=== PATIENT | male | born 1945 | race Caucasian/White ===

== ENCOUNTER 2018-05-25 14:44 | Inpatient (IN) ==
[2018-05-25] MEDS ORDERED: Propofol Inj 500 MG/50 ML Vial ONE (14:59)
--- NOTE | 2018-05-25 15:26 | ED ---
HPI General Chief Complaint: Seizure Stated Complaint: Seizures Time Seen by Provider: 05/25/18 14:52 History of Present Illness HPI Narrative: This patient is brought in critically ill. He has history of seizure disorder and alcoholism and noncompliance. Apparently had a witnessed grand mal type seizure. Paramedics were called. They witnessed him seizing and then he stopped after 2 of Versed. However he became unresponsive and apneic and they intubated him after 2 more Versed and 20 mg etomidate. He arrives intubated and can provide no useful history or review of systems. Related Data Home Medications Medication Instructions Recorded Confirmed Unable to Obtain Home Meds 05/25/18 05/25/18 Allergies Allergy/AdvReac Type Severity Reaction Status Date / Time Unable to Assess Allergy Unknown Unconscious Verified 05/25/18 17:12 Review of Systems ROS Unobtainable due to endotracheal tube PMFSH Medical History Medical History Alcohol abuse (Acute) Seizure (Acute) Surgical history unknown (Acute) Social History Social History Second Hand Smoke Exposure: No Smoking Status: Unknown if ever smoked How Often Do You Have a Drink Containing Alcohol: 4 or more times a week Recent Travel in [facility] within the Last 8 Weeks: No Recent Out of Country Travel within the Last 8 Weeks: No Substance Abuse Detail Alcohol: Substance Use Status: Active Route Used Substance Abuse: By Mouth Immunization History Tetanus Immunization: Unable to Assess Hx Influenza Vaccine This Season: Unable to Assess Exam Narrative Exam Narrative: GENERAL: Thin and cachectic , well-developed patient in no apparent distress. SKIN: Focused skin assessment reveals no rash and nodules. Skin is Warm and dry. HEAD: Atraumatic. Normocephalic. EYES: Pupils equal and round. No scleral icterus. No injection or drainage. ENT: No nasal bleeding or discharge. Mucous membranes pink and moist. ET tube in position NECK: Trachea midline. No JVD. CARDIOVASCULAR: Regular rate and rhythm. No murmur appreciated. RESPIRATORY: Has diffuse rhonchi but no wheezes or crackles. Symmetric respiratory effort with bagging. Breath sounds equal bilaterally. GASTROINTESTINAL: Abdomen soft, non-tender, nondistended. Hepatic and splenic margins not palpable. MUSCULOSKELETAL: No obvious deformities. No clubbing. No cyanosis. No edema. NEUROLOGICAL: Impossible to test motor strength or sensation. He is intubated on ventilator. Pupils are equal and reactive. PSYCHIATRIC: Impossible to test mood or affect or insight or judgment. He is intubated . Course Initial Documented Vital Signs Pulse Rate 147 H 05/25/18 14:45 Respiratory Rate 18 05/25/18 14:45 Blood Pressure 127/74 05/25/18 14:45 Pulse Oximetry 100 05/25/18 14:45 Last Documented Vital Signs Pulse Rate 75 05/25/18 17:09 Respiratory Rate 14 05/25/18 17:09 Blood Pressure 116/64 05/25/18 17:09 Pulse Oximetry 100 05/25/18 17:09 Critical Care Time Critical Care Time: Yes Total Critical Care Time: 78 Attestation: Aggregate critical care time was 74 minutes. Time to perform other separately billable procedures was not included in the critical care time. My time did not include minutes spent treating any other patients simultaneously or on activities that did not directly contribute to the patient's treatment. The services I provided to this patient were to treat and/or prevent clinically significant deterioration that could result in: Permanent neurologic deficit, aspiration, cardiopulmonary arrest I provided critical care services requiring my management, as noted below: Chart data review, documentation time, medication orders and management, vital sign assessments/reviewing monitor data, ordering and reviewing lab tests, ordering and interpreting/reviewing x-rays and diagnostic studies, care of the patient and discussion of the patient with the admitting physicians. Medical Decision Making MDM Narrative Medical decision making narrative: We placed 3 IVs. I have ordered lab studies and chest x-ray and an Dilantin level Judging by his past history he is Dilantin level will be very low and we will Dilantin load him Did have a bit of tonic-clonic seizure-like activity of the upper extremities on arrival but that has resolved spontaneously. I done some frequent rechecks on him but he seems to be seizure-free at the moment. Brain CT still pending at time of admission Initial blood pressure extremely high and accelerated. However on to prevent drip it is 138 systolic Potassium is low at 2.8 and I gave him 50 mEq down the NG tube. Other labs reviewed. Has mild hyponatremia and mild anemia. I instituted fentanyl drip as he is very challenging to say date. He is now on propofol and fentanyl drips. Case reviewed in detail with deli slicer Dr. Steve who has evaluated the patient and will admit Differential Diagnosis Differential Diagnosis: Status epilepticus, aspiration, intracranial hemorrhage , alcohol intoxication, alcohol withdrawal, noncompliance Medical Records Medical records reviewed: Yes I reviewed the patient's medical records. Patient's been here multiple times for seizure related problems. Lab Data Result diagrams: 05/25/18 16:10 05/25/18 16:10 Lab Results 05/25/18 05/25/18 05/25/18 Range/Units 15:23 15:40 16:10 WBC 4.5 (4.0-11.0) th/mm3 RBC 2.53 L (4.50-5.90) mil/mm3 Hgb 9.3 L (13.0-17.0) gm/dL Hct 25.9 L (39.0-51.0) % MCV 102.3 H (80.0-100.0) fL MCH 36.6 H (27.0-34.0) pg MCHC 35.8 (32.0-36.0) % RDW 15.3 (11.6-17.2) % Plt Count 421 (150-450) th/mm3 MPV 7.0 (7.0-11.0) fL Neut % (Auto) 75.4 H (16.0-70.0) % Lymph % (Auto) 11.8 (9.0-44.0) % [place] % (Auto) 11.5 H (0.0-8.0) % Eos % (Auto) 0.2 (0.0-4.0) % Baso % (Auto) 1.1 (0.0-2.0) % Neut # (Auto) 3.4 (1.8-7.7) th/mm3 Lymph # (Auto) 0.5 L (1.0-4.8) th/mm3 [place] # (Auto) 0.5 (0.0-0.9) th/mm3 Eos # (Auto) 0.0 (0.0-0.4) th/mm3 Baso # (Auto) 0.1 (0.0-0.2) th/mm3 WBC Differential . Differential Comment Auto diff final Puncture Site Right radial Patient Temperature 98.6 O2 Saturation 99 (90-100) % ABG pH 7.75 H* (7.380-7.420) ABG pCO2 21 L* (38-42) mmHg ABG pO2 420 H (61-120) mmHg ABG HCO3 30 H (22-26) mmol/L ABG O2 Content 15.3 (12.0-20.0) Vol % ABG Base Excess 8.7 H (-2-2) mmol/L ABG Methemoglobin 0.4 (0-2) % Jim Test Present Hemoglobin 10.3 L (12.0-16.0) G/DL Carboxyhemoglobin 1.6 (0-4) % O2 Delivery Device Ventilator Vent Setting 14/400/+5/100 Inspired O2 100 % Critical Value Yes Sodium (136-145) meq/L Potassium (3.5-5.1) meq/L Chloride (98-107) meq/L Carbon Dioxide (21.0-32.0) meq/L Anion Gap (5-15) meq/L BUN (7-18) mg/dL Creatinine (0.60-1.30) mg/dL Estimated GFR (>89) mL/min Random Glucose (74-106) mg/dL Calcium (8.5-10.1) mg/dL Total Bilirubin (0.2-1.0) mg/dL AST (15-37) U/L ALT (12-78) U/L Alkaline Phosphatase (45-117) U/L Total Protein (6.4-8.2) g/dL Albumin (3.4-5.0) g/dL Salicylates (2.8-20.0) mg/dL Urine Opiates Screen Neg (Neg) Acetaminophen (10.0-30.0) mcg/mL Ur Barbiturates Screen Neg (Neg) Phenytoin (10.0-20.0) mcg/mL Ur Amphetamines Screen Neg (Neg) U Benzodiazepines Scrn Pos H (Neg) Urine Cocaine Screen Neg (Neg) U Cannabinoids Screen Neg (Neg) Serum Alcohol (0-5) mg/dL 05/25/18 05/25/18 05/25/18 Range/Units 16:10 16:10 16:10 WBC (4.0-11.0) th/mm3 RBC (4.50-5.90) mil/mm3 Hgb (13.0-17.0) gm/dL Hct (39.0-51.0) % MCV (80.0-100.0) fL MCH (27.0-34.0) pg MCHC (32.0-36.0) % RDW (11.6-17.2) % Plt Count (150-450) th/mm3 MPV (7.0-11.0) fL Neut % (Auto) (16.0-70.0) % Lymph % (Auto) (9.0-44.0) % [place] % (Auto) (0.0-8.0) % Eos % (Auto) (0.0-4.0) % Baso % (Auto) (0.0-2.0) % Neut # (Auto) (1.8-7.7) th/mm3 Lymph # (Auto) (1.0-4.8) th/mm3 [place] # (Auto) (0.0-0.9) th/mm3 Eos # (Auto) (0.0-0.4) th/mm3 Baso # (Auto) (0.0-0.2) th/mm3 WBC Differential Differential Comment Puncture Site Patient Temperature O2 Saturation (90-100) % ABG pH (7.380-7.420) ABG pCO2 (38-42) mmHg ABG pO2 (61-120) mmHg ABG HCO3 (22-26) mmol/L ABG O2 Content (12.0-20.0) Vol % ABG Base Excess (-2-2) mmol/L ABG Methemoglobin (0-2) % Jim Test Hemoglobin (12.0-16.0) G/DL Carboxyhemoglobin (0-4) % O2 Delivery Device Vent Setting Inspired O2 % Critical Value Sodium 132 L (136-145) meq/L Potassium 2.8 L* (3.5-5.1) meq/L Chloride 91 L (98-107) meq/L Carbon Dioxide 28.7 (21.0-32.0) meq/L Anion Gap 12 (5-15) meq/L BUN 11 (7-18) mg/dL Creatinine 0.96 (0.60-1.30) mg/dL Estimated GFR 77 L (>89) mL/min Random Glucose 118 H (74-106) mg/dL Calcium 8.2 L (8.5-10.1) mg/dL Total Bilirubin 1.9 H (0.2-1.0) mg/dL AST 58 H (15-37) U/L ALT 28 (12-78) U/L Alkaline Phosphatase 77 (45-117) U/L Total Protein 6.2 L (6.4-8.2) g/dL Albumin 2.6 L (3.4-5.0) g/dL Salicylates Less than 1.7 L (2.8-20.0) mg/dL Urine Opiates Screen (Neg) Acetaminophen Less than 2.0 L (10.0-30.0) mcg/mL Ur Barbiturates Screen (Neg) Phenytoin Less than 0.4 L (10.0-20.0) mcg/mL Ur Amphetamines Screen (Neg) U Benzodiazepines Scrn (Neg) Urine Cocaine Screen (Neg) U Cannabinoids Screen (Neg) Serum Alcohol Less than 3 (0-5) mg/dL 05/25/18 Range/Units 16:17 WBC (4.0-11.0) th/mm3 RBC (4.50-5.90) mil/mm3 Hgb (13.0-17.0) gm/dL Hct (39.0-51.0) % MCV (80.0-100.0) fL MCH (27.0-34.0) pg MCHC (32.0-36.0) % RDW (11.6-17.2) % Plt Count (150-450) th/mm3 MPV (7.0-11.0) fL Neut % (Auto) (16.0-70.0) % Lymph % (Auto) (9.0-44.0) % [place] % (Auto) (0.0-8.0) % Eos % (Auto) (0.0-4.0) % Baso % (Auto) (0.0-2.0) % Neut # (Auto) (1.8-7.7) th/mm3 Lymph # (Auto) (1.0-4.8) th/mm3 [place] # (Auto) (0.0-0.9) th/mm3 Eos # (Auto) (0.0-0.4) th/mm3 Baso # (Auto) (0.0-0.2) th/mm3 WBC Differential Differential Comment Puncture Site Right radial Patient Temperature 98.6 O2 Saturation 97 (90-100) % ABG pH 7.64 H* (7.380-7.420) ABG pCO2 26 L (38-42) mmHg ABG pO2 113 (61-120) mmHg ABG HCO3 28 H (22-26) mmol/L ABG O2 Content 11.2 L (12.0-20.0) Vol % ABG Base Excess 6.0 H (-2-2) mmol/L ABG Methemoglobin 0.6 (0-2) % Jim Test Present Hemoglobin 8.0 L (12.0-16.0) G/DL Carboxyhemoglobin 1.6 (0-4) % O2 Delivery Device Ventilator Vent Setting Ac 18/400/peep5 Inspired O2 40 % Critical Value Yes Sodium (136-145) meq/L Potassium (3.5-5.1) meq/L Chloride (98-107) meq/L Carbon Dioxide (21.0-32.0) meq/L Anion Gap (5-15) meq/L BUN (7-18) mg/dL Creatinine (0.60-1.30) mg/dL Estimated GFR (>89) mL/min Random Glucose (74-106) mg/dL Calcium (8.5-10.1) mg/dL Total Bilirubin (0.2-1.0) mg/dL AST (15-37) U/L ALT (12-78) U/L Alkaline Phosphatase (45-117) U/L Total Protein (6.4-8.2) g/dL Albumin (3.4-5.0) g/dL Salicylates (2.8-20.0) mg/dL Urine Opiates Screen (Neg) Acetaminophen (10.0-30.0) mcg/mL Ur Barbiturates Screen (Neg) Phenytoin (10.0-20.0) mcg/mL Ur Amphetamines Screen (Neg) U Benzodiazepines Scrn (Neg) Urine Cocaine Screen (Neg) U Cannabinoids Screen (Neg) Serum Alcohol (0-5) mg/dL Imaging Data Radiologist's impression: Chest X-Ray 05/25/18 15:22 CONCLUSION: No acute cardiopulmonary disease. Head CT 05/25/18 15:22 CONCLUSION: Chronic small vessel ischemic and atrophic changes. Discharge Plan Discharge Disposition Patient Disposition: 30 Still Patient Discharge Details Diagnosis: Generalized seizure, Episode of unresponsiveness Physicians Team ED Provider: Mohit Pal Primary Care Provider: UNKNOWN, Rxs /Orders / Referrals /Forms Prescriptions: No Action Unable to Obtain Home Meds RF: 0 Discharge Interventions Interventions: Vital Signs Last Done: 05/25/18 16:48 Status ED Status: Admitted Patient
[2018-05-25] MEDS ORDERED: Sod Chloride 0.9% Inj 1,000 ML IV.CONT SCH (15:30)
[2018-05-25 15:39] LABS: ABG Base Excess 8.7 mmol/L (-2-2); ABG PCO2 21 mmHg (38-42); ABG PO2 420 mmHg (61-120)
--- NOTE | 2018-05-25 15:46 | XR ---
EXAM DATE: 05/25/2018 3:40 PM EDT AGE/SEX: 72 years / Male INDICATIONS: Shortness of breath. CLINICAL DATA: This is the patient's initial encounter. Patient reports that signs and symptoms have been present for 1 day and indicates a pain score of Nonresponsive. MEDICAL/SURGICAL HISTORY: Non-responsive. Non-responsive. COMPARISON: [facility] [place]/2016. . FINDINGS: The lungs are clear without infiltrate, nodule, or mass. There is no appreciable pleural effusion for technique. Heart and mediastinum are unremarkable. ET TUBE is present within approximat kenna 2 to 3 cm overlapping above the olivia. CONCLUSION: No acute cardiopulmonary disease. Electronically signed by: Elle Harper MD 05/25/2018 3:44 PM EDT
[2018-05-25] MEDS ORDERED: fentaNYL 10 mcg/mL Premix Drip 2,500 MCG/250 ML BAG ONE (15:53)
[2018-05-25] MEDS ORDERED: Midazolam Inj 5 MG/ML 1 ML Vial ONE ×2 (15:54→18:12)
[2018-05-25 16:33] LABS: ABG PCO2 26 mmHg (38-42); ABG PO2 113 mmHg (61-120)
[2018-05-25] MEDS ORDERED: Potassium Chloride 25 MEQ Effervescent Tablet PO PRN (16:43)
[2018-05-25] MEDS ORDERED: Sodium Phosphate Inj 30 MMOL in Sodium Chlor 0.9% Inj 250 ML IV.SIG PRN (16:43)
[2018-05-25] MEDS ORDERED: Potassium Phosphate 500 MG Soluble Tablet PO PRN (16:43)
[2018-05-25] MEDS ORDERED: Potassium Phosphate Inj 30 MMOL in Sodium Chlor 0.9% Inj 250 ML IV.SIG PRN (16:43)
[2018-05-25] MEDS ORDERED: Potassium Chlor 20 mEq Premix 20 MEQ/100 ML PIGGYBACK IV.SIG PRN (16:43)
[2018-05-25] MEDS ORDERED: Potassium Chlor 40 mEq Premix 40 MEQ/100 ML PIGGYBACK IV.SIG PRN ×2 (16:43)
[2018-05-25] MEDS ORDERED: Magnesium Oxide 400 MG Tablet PO PRN (16:43)
[2018-05-25] MEDS ORDERED: Bisacodyl 10 MG Supp RECTAL PRN (16:43)
[2018-05-25] MEDS ORDERED: Magnesium Sulfate Inj 4 GM in Sodium Chlor 0.9% Inj 92 ML IV.SIG PRN (16:43)
[2018-05-25] MEDS ORDERED: Haloperidol Inj 5 MG/ML Ampul IV.PUSH PRN (16:51)
[2018-05-25] MEDS ORDERED: LORazepam 1 MG Tablet PO PRN (16:51)
[2018-05-25] MEDS ORDERED: Dextrose 50% in Water 50 ML Vial IV.PUSH PRN (16:54)
--- NOTE | 2018-05-25 16:55 | P.HPCC ---
History of Present Illness Service: Critical care medicine Primary Care Physician: UNKNOWN Chief Complaint: altered mental status History of Present Illness: This is a 72-year-old male with a history of alcoholic cirrhosis and seizure disorder who presents with ongoing active grand mal seizures. He was altered in the field and unable to participate airway and was intubated in the field. No additional information is available from the patient. In the emergency department he was hypotensive requiring IV fluid boluses. Laboratory evidence is remarkable for an undetectable phenytoin level in a patient on chronic Dilantin therapy. Review of systems is unavailable due to the clinical condition of the patient. Review of Systems unobtainable due to endotracheal tube, unobtainable due to mental condition, unobtainable due to mental status PMFSH - History History Provided By: Medical Record - Medical History Medical History: Medical History (Last Updated 05/25/18 @ 14:50 by Yasmeen Sorto) Alcohol abuse Seizure Surgical history unknown - Tobacco History Second Hand Smoke Exposure: No Tobacco Use In Past 30 Days: No Smoking Status: Unknown if ever smoked - Alcohol History How Often Do You Have a Drink Containing Alcohol: 4 or more times a week - Substance Use Type Alcohol Status: Active Route Used: By Mouth - Travel History Recent Travel in the [place] Within the Last 8 Weeks: No Recent Travel Out of the Country Within the Last 8 Weeks: No - Immunization History Tetanus Immunization: Unable to Assess Hx Influenza Vaccine This Season: Unable to Assess Medications and Allergies Active Medications: Active Medications Al Hydroxide/Mg Hydroxide (Milk Of Hillary [place]) 30 ml PO Q12H PRN PRN Reason: Mild Constipation Albuterol (Duoneb Neb (Prn)) 1 ampul NEB Q2HR NEB PRN PRN Reason: WHEEZING Albuterol (Duoneb Neb (Prn)) 1 ampul NEB Q6HR NEB ALPHONSE Bisacodyl (Dulcolax Supp) 10 mg RECTAL DAILY PRN PRN Reason: SEVERE CONSITIPATION Chlorhexidine Gluconate (Peridex 0.12% Oral Kit) 15 ml OROPHARYNG BID@0800, 2000 ALPHONSE Chlorhexidine Gluconate (Chlorhexidine 2% Cloth) 3 pack TOPICAL DAILY@0400 ALPHONSE Stop: 05/31/18 03:59 Chlorhexidine Gluconate (Chlorhexidine 2% Cloth) 3 pack TOPICAL DAILY@0400 PRN PRN Reason: Extra cloth needed Stop: 05/31/18 03:59 Enoxaparin Sodium (Lovenox Inj) 40 mg SQ Q24H ALPHONSE Famotidine (Pepcid Pf Inj) 20 mg IV.PUSH Q12HR ALPHONSE Sodium Chloride (Ns Inj) 1,000 mls @ 125 mls/hr IV.CONT .Q8H ALPHONSE Stop: 05/25/18 23:29 Last Admin: 05/25/18 15:34 Dose: 125 mls/hr Fentanyl (Fentanyl 10 Mcg/Ml Premix Drip) 2,500 mcg in 250 mls @ 5 mls/hr IV.SIG TITRATE PRN; Protocol PRN Reason: Per Protocol Magnesium Sulfate Inj 4 gm/ (Sodium Chloride) 100 mls @ 50 mls/hr IV.SIG UNSCH PRN PRN Reason: For Magnesium 0.9 - 1.1 mg/dL Magnesium Sulfate Inj 2 gm/ (Sodium Chloride) 100 mls @ 50 mls/hr IV.SIG UNSCH PRN PRN Reason: For Magnesium 1.2 - 1.6 mg/dL Potassium Chloride (Kcl 40 Meq Premix Inj) 40 meq in 100 mls @ 25 mls/hr IV.SIG Q2H PRN PRN Reason: For Potassium 2.8 - 3.2 mEq/L Potassium Chloride (Kcl 40 Meq Premix Inj) 40 meq in 100 mls @ 25 mls/hr IV.SIG UNSCH PRN PRN Reason: For Potassium 3.3 - 3.5 mEq/L Potassium Chloride (Kcl 20 Meq Premix Inj) 20 meq in 100 mls @ 50 mls/hr IV.SIG Q2H PRN PRN Reason: For Potassium 2.8 - 3.2 mEq/L Potassium Phosphate 30 mmol/ (Sodium Chloride) 260 mls @ 42 mls/hr IV.SIG UNSCH PRN PRN Reason: SEE LABEL COMMENTS Sodium Phosphate 30 mmol/ (Sodium Chloride) 260 mls @ 42 mls/hr IV.SIG UNSCH PRN PRN Reason: For Phosphorus < 2.5 mg/dL Potassium Chloride (Kcl 20 Meq Premix Inj) 20 meq in 100 mls @ 50 mls/hr IV.SIG Q2H PRN PRN Reason: For Potassium 3.3 - 3.5 mEq/L Lactulose (Lactulose Liq) 30 ml PO DAILY PRN PRN Reason: SEVERE CONSITIPATION Magnesium Oxide (Mag-Ox) 800 mg PO UNSCH PRN PRN Reason: For Magnesium 1.2 - 1.6 mg/dL Ondansetron HCl (Zofran Inj) 4 mg IV.PUSH Q6H PRN PRN Reason: NAUSEA OR VOMITING Potassium Bicarb/Potassium Chloride (K-Lyte Cl Eff) 50 meq PO UNSCH PRN PRN Reason: For Potassium 3.3 - 3.5 mEq/L Potassium Phosphate (K-Phos Original) 2,000 mg PO Q4H PRN PRN Reason: Phosphorus Less Than 2.5 mg/dL Potassium Phosphate (K-Phos Original) 2,000 mg PO UNSCH PRN PRN Reason: SEE LABEL COMMENTS Senna/Docusate Sodium (Anupama-Colace) 1 tab PO BID ALPHONSE Sennosides (Senokot) 17.2 mg PO Q12H PRN PRN Reason: Moderate Constipation Sodium Chloride (Ns Flush) 2 ml IV.FLUSH PRN PRN PRN Reason: FLUSH AFTER USING IV ACCESS Sodium Chloride (Ns Flush) 2 ml IV.FLUSH BID ALPHONSE Sodium Chloride (Ns Flush) 2 ml IV.FLUSH PRN PRN PRN Reason: FLUSH AFTER USING IV ACCESS Allergies Allergy/AdvReac Type Severity Reaction Status Date / Time Unable to Assess Allergy Unknown Unconscious Verified 05/25/18 17:12 Home Medications Medication Instructions Recorded Confirmed Type Unable to Obtain Home Meds 05/25/18 05/25/18 History Results - Labs CBC & Chem 7: 05/25/18 16:10 05/25/18 16:10 - Imaging Impressions Chest X-Ray 05/25/18 15:22 CONCLUSION: No acute cardiopulmonary disease. Exam Vital signs: Vital Signs 05/25/18 14:45 05/25/18 14:51 05/25/18 14:53 Pulse Rate 147 H 119 H Respiratory Rate 18 18 18 Blood Pressure 127/74 176/92 H Pulse Oximetry 100 100 05/25/18 14:56 05/25/18 15:20 05/25/18 15:26 Pulse Rate 96 H 128 H Respiratory Rate 21 14 Blood Pressure 113/68 Pulse Oximetry 95 100 05/25/18 15:51 05/25/18 16:48 Pulse Rate 94 H 74 Respiratory Rate 14 14 Blood Pressure 140/80 125/71 Pulse Oximetry 100 100 Intake & Output 05/24/18 05/25/18 05/25/18 18:59 06:59 18:59 Weight 53.524 kg Narrative: GENERAL: Frail elderly cachectic male, lying in bed, intubated, sedated, critically ill HEENT: Normocephalic. Atraumatic. Pupils equal, round, reactive, conjugate. Mucous membranes are dry. Evidence of temporal wasting. NECK: Trachea is midline. There is no JVD. CHEST: Intubated with 7.5 ET tube. Equal chest rise. CARDIOVASCULAR: Normal rate, regular rhythm. Sinus. ABDOMEN: Soft, scaphoid, nontender, nondistended. No guarding. MUSCULOSKELETAL: Pulses 2+. No peripheral edema. NEUROLOGICAL: RASS -4. Moves all extremities spontaneously. Does not follow commands. Withdraws to pain. Caprini VTE Risk Assessment Caprini VTE Risk Assessment: Moderate/High Risk (score >= 2) Caprini Risk Assessment Model: Point Value = 1 Point Value = 2 Point Value = 3 Point Value = 5 Age 41-60 Minor surgery BMI > 25 kg/m2 Swollen legs Varicose veins or History of unexplained or recurrent spontaneous Oral contraceptives or hormone replacement Sepsis (< 1 month) Serious lung disease, including pneumonia (< 1 month) Abnormal pulmonary function Acute myocardial infarction Congestive heart failure (< 1 month) History of inflammatory bowel disease Medical patient at bed rest Age 61-74 Arthroscopic surgery Major open surgery (> 45 min) Laparoscopic surgery (> 45 min) Malignancy Confined to bed (> 72 hours) Immobilizing plaster cast Central venous access Age >= 75 History of VTE Family history of VTE Factor V Leiden Prothrombin 12106M Lupus anticoagulant Anticardiolipin antibodies Elevated serum homocysteine Heparin-induced thrombocytopenia Other congenital or acquired thrombophilia Stroke (< 1 month) Elective arthroplasty Hip, pelvis, or leg fracture Acute spinal cord injury (< 1 month) Prophylaxis Regimen: Total Risk Factor Score Risk Level Prophylaxis Regimen 0-1 Low Early ambulation 2 Moderate Order ONE of the following: *Sequential Compression Device (SCD) *Heparin 5000 units SQ BID 3-4 Higher Order ONE of the following medications: *Heparin 5000 units SQ TID *Enoxaparin/Lovenox 40 mg SQ daily (WT < 150 kg, CrCl > 30 mL/min) *Enoxaparin/Lovenox 30 mg SQ daily (WT < 150 kg, CrCl > 10-29 mL/min) *Enoxaparin/Lovenox 30 mg SQ BID (WT < 150 kg, CrCl > 30 mL/min) AND/OR *Sequential Compression Device (SCD) 5 or more Highest Order ONE of the following medications: *Heparin 5000 units SQ TID (Preferred with Epidurals) *Enoxaparin/Lovenox 40 mg SQ daily (WT < 150 kg, CrCl > 30 mL/min) *Enoxaparin/Lovenox 30 mg SQ daily (WT < 150 kg, CrCl > 10-29 mL/min) *Enoxaparin/Lovenox 30 mg SQ BID (WT < 150 kg, CrCl > 30 mL/min) AND *Sequential Compression Device (SCD) Assessment and Plan - Assessment and Plan Plan: Assessment: 72-year-old male with alcohol dependence and likely alcohol withdrawal syndrome combined with known seizure disorder and apparently noncompliant with home seizure medications including Dilantin. Will admit to ICU. Very critically ill with respiratory failure and ongoing seizures. Plan by systems: Neurologic: Alcohol dependence Alcohol withdrawal Seizure disorder with active seizures Medication noncompliance Acute combined toxic and metabolic encephalopathy Frequent neurochecks Avoid long-acting sedatives Fentanyl and propofol for goal RASS -2 Fosphenytoin load 1 g and 100 mg IV every 8 hours Dilantin level in the morning EEG in the morning ciwa protocol Scheduled Valium 20 mg at p.o. every 8 hours to help with EtOH withdrawal IV thiamine and multivitamins Head CT given altered mentation Respiratory: Acute hypoxic and hypercarbic respiratory failure Vent bundle Head of bed elevated Nebs No SBT today given acute altered mentation Likely start SVTs in the morning Wean FiO2 for goal SPO2 greater than 90% Cardiovascular: Continue telemetry 2 L IV fluids Maintenance IV fluids Renal: Place Martin for accurate eyes nose and is critically ill patient -- Strict I/Os FEN/GI: Alcoholic cirrhosis Acute protein calorie malnutritionsevere Severe hypokalemia Acute intravascular volume depletion Hyponatremia Dehydration Low sodium is likely hypovolemic hyponatremia secondary to dehydration ICU electrolyte protocol Place nasogastric tube and start tube feeds: Jevity at initial goal of 60 mils an hour Dietary consultation Maintenance IV fluids Daily BMP Heme/ID: No infectious etiology suspected this time Daily CBC Endocrine: Hyperglycemia of critical illness -- SSI Prophylaxis: GI Prophylaxis Pepcid DVT Prophylaxis -- SCDs Lovenox Lines: Peripheral IVs Martin Dispo: Admit ICU. Critically ill. This patient remains critically ill with one or more organ systems which are or may become a threat to life. I have spent in excess of 37 minutes discontinuously in the care and management of this patient. This time is exclusive of procedures, and includes, but is not limited to, evaluation of the patient, review of the medical record, discussions with family, consultants, nursing staff, or respiratory therapy, and documentation in the medical record.
[2018-05-25] MEDS: fentaNYL 10 mcg/mL Premix Drip 2,500 MCG/250 ML BAG IV.SIG PRN (16:56)
[2018-05-25 16:57] LABS: Alanine Aminotransferase 28 U/L (12-78); Albumin 2.6 g/dL (3.4-5.0); Alkaline Phosphatase 77 U/L (45-117); Anion Gap 12 meq/L (5-15); Aspartate Aminotransferase 58 U/L (15-37); Blood Urea Nitrogen 11 mg/dL (7-18); Calcium 8.2 mg/dL (8.5-10.1); Carbon Dioxide 28.7 meq/L (21.0-32.0); Chloride 91 meq/L (98-107); Glomerular Filtration Rate 77 mL/min (>89); Glucose,Random 118 mg/dL (74-106); Sodium 132 meq/L (136-145); Total Protein 6.2 g/dL (6.4-8.2)
[2018-05-25 17:00] LABS: Baso # (Auto) 0.1 th/mm3 (0.0-0.2); Baso % (Auto) 1.1 % (0.0-2.0); Eos % (Auto) 0.2 % (0.0-4.0); Hematocrit 25.9 % (39.0-51.0); Hemoglobin 9.3 gm/dL (13.0-17.0); Lymph # (Auto) 0.5 th/mm3 (1.0-4.8); Lymph % (Auto) 11.8 % (9.0-44.0); Mean Corpuscular HGB Conc 35.8 % (32.0-36.0); Mean Corpuscular Hemoglobin 36.6 pg (27.0-34.0); Mean Corpuscular Volume 102.3 fL (80.0-100.0); Mono # (Auto) 0.5 th/mm3 (0.0-0.9); Mono % (Auto) 11.5 % (0.0-8.0); Neut # (Auto) 3.4 th/mm3 (1.8-7.7); Neut % (Auto) 75.4 % (16.0-70.0); Platelet Count 421 th/mm3 (150-450); Potassium 2.8 meq/L (3.5-5.1); Red Blood Count 2.53 mil/mm3 (4.50-5.90); Red Cell Distribution Width 15.3 % (11.6-17.2); White Blood Count 4.5 th/mm3 (4.0-11.0)
[2018-05-25] MEDS ORDERED: Potassium Chloride 25 MEQ Effervescent Tablet NG/OG ONE (17:17)
[2018-05-25] MEDS ORDERED: Fosphenytoin Inj 1,000 MGPE in Sodium Chlor 0.9% Inj 50 ML IV.SIG ONE (18:00)
[2018-05-25 18:11] LABS: Amphetamine Screen,Urine Neg (Neg); Barbiturate Screen,Urine Neg (Neg); Cannabinoid Screen,Urine Neg (Neg); Cocaine Screen,Urine Neg (Neg)
--- NOTE | 2018-05-25 18:12 | CT ---
EXAM DATE: 05/25/2018 6:08 PM EDT AGE/SEX: 72 years / Male INDICATIONS: Altered mental status. CLINICAL DATA: This is the patient's initial encounter. Patient reports that signs and symptoms have been present for 1 day and indicates a pain score of Nonresponsive. MEDICAL/SURGICAL HISTORY: Non-responsive. Non-responsive. RADIATION DOSE: 56.35 CTDI (mGy) COMPARISON: [facility] – [place], [place] BRAIN W/O CONTRAST, 04/01/2017. . TECHNIQUE: CT of the head without contrast. Using automated exposure control and adjustment of the mA and/or kV according to patient size, radiation dose was kept as low as reasonably achievable to ob tain optimal diagnostic quality images. DICOM format image data is available electronically for revi ew and comparison. FINDINGS: There is no evidence for intracranial hemorrhage, mass effect, mass lesions, or edema. The visualize d bony structures appear intact. Moderate degree of brain atrophy is seen. Slight periventricular wh ite matter changes are seen nonspecific mostly consistent with chronic small vessel ischemic changes. There are no signs of acute infarction for technique. There is slight opacification of some of the ethmoid air cells on the left. CONCLUSION: Chronic small vessel ischemic and atrophic changes. Electronically signed by: Elle Harper MD 05/25/2018 6:10 PM EDT
[2018-05-25 18:18] LABS: Opiate Screen,Urine Neg (Neg)
[2018-05-25] MEDS: Thiamine Inj 100 MG in Sodium Chlor 0.9% Inj 100 ML IV.SIG SCH (18:38)
[2018-05-25] MEDS: Propofol 1000 mg/100 ml Inj 1,000 MG/100 ML BOTTLE IV.CONT PRN (18:39)
[2018-05-25] MEDS: Insulin NovoLIN Regular Correctional Sugar Inj SQ SCH (18:45)
[2018-05-25] MEDS: Enoxaparin Inj 40 MG/0.4 ML Syringe SQ SCH (19:17)
[2018-05-25] MEDS: Fosphenytoin Inj 100 MGPE in Sodium Chlor 0.9% Inj 50 ML IV.SIG SCH (21:32)
[2018-05-25] MEDS: Famotidine PF Inj 20 MG/2 ML Vial IV.PUSH SCH (21:32)
[2018-05-25] MEDS: Chlorhexidine 0.12% Oral Kit 15 ML UDC OROPHARYNG SCH (21:34)
[2018-05-25] MEDS: Senna/Docusate Sodium 8.6/50 MG Tablet PO SCH (21:35)
[2018-05-26] MEDS: Insulin NovoLIN Regular Correctional Sugar Inj SQ SCH ×4 (01:17→18:22)
[2018-05-26] MEDS: Oral Hygiene Kit OROPHARYNG SCH ×4 (01:17→15:39)
[2018-05-26] MEDS: Chlorhexidine Gluconate 2% 1 Pack (2 Cloths) TOPICAL SCH (03:27)
[2018-05-26] MEDS ORDERED: Chlorhexidine Gluconate 2% 1 Pack (2 Cloths) TOPICAL PRN (04:00)
[2018-05-26] MEDS: Fosphenytoin Inj 100 MGPE in Sodium Chlor 0.9% Inj 50 ML IV.SIG SCH ×3 (05:17→21:07)
[2018-05-26 08:01] LABS: Hemoglobin 9.6 gm/dL (13.0-17.0); Mean Corpuscular HGB Conc 34.3 % (32.0-36.0); Mean Corpuscular Hemoglobin 36.9 pg (27.0-34.0); Mean Corpuscular Volume 107.8 fL (80.0-100.0); Mean Platelet Volume 6.9 fL (7.0-11.0); Platelet Count 380 th/mm3 (150-450); White Blood Count 10.4 th/mm3 (4.0-11.0)
[2018-05-26 08:33] LABS: Anion Gap 8 meq/L (5-15); Blood Urea Nitrogen 8 mg/dL (7-18); Calcium 7.5 mg/dL (8.5-10.1); Carbon Dioxide 25.4 meq/L (21.0-32.0); Chloride 108 meq/L (98-107); Glomerular Filtration Rate Greater Than 89 mL/min (>89); Glucose,Random 101 mg/dL (74-106); Magnesium 1.5 mg/dL (1.5-2.5); Phenytoin (Dilantin) 15.5 mcg/mL (10.0-20.0); Phosphorus 2.8 mg/dL (2.5-4.9); Potassium 3.5 meq/L (3.5-5.1); Sodium 141 meq/L (136-145)
[2018-05-26] MEDS: Chlorhexidine 0.12% Oral Kit 15 ML UDC OROPHARYNG SCH ×2 (10:22→21:07)
[2018-05-26] MEDS: Senna/Docusate Sodium 8.6/50 MG Tablet PO SCH ×2 (10:22→21:10)
[2018-05-26] MEDS: Famotidine PF Inj 20 MG/2 ML Vial IV.PUSH SCH ×2 (10:22→21:10)
[2018-05-26] MEDS: Thiamine Inj 100 MG in Sodium Chlor 0.9% Inj 100 ML IV.SIG SCH (10:23)
--- NOTE | 2018-05-26 10:24 | P.DIET ---
Nutritional Evaluation Type of nutrition evaluation: initial Nutrition consult regarding: [place] [place] Objective - Diagnosis Unresponsive, Breakthrough Seizures - Objective % IBW: 69 (CPG=780#) Body Weight Used for Calculations: IBW (75.5kg) Energy Needs - Lower Range (kCal/kg): 25 Energy Needs - Upper Range (kCal/kg): 30 Lower Limit kCal/kg (kCals): 1,888 Upper Limit kCal/kg (kCals): 2,265 Lower Limit Protein Factor (Grams per Kg): 1.2 Upper Limit Protein Factor (Grams per Kg): 1.5 Lower Protein Needs (Protein): 91 Upper Protein Needs (Protein): 113 Dietitian Reviewed in Medical Record: Curent medications, Intake & Output, Labs , Medical history, Tube feeding Diet Order: TF Only Objective Comments: Meds: Thiamine, Cerebyx IV Labs: Na, K+ WNL now, Phosphorus and Magnesium WNL Pt was on Dilantin at home, not currently on it Feeding - Current Tube Feeding Tube Feeding Product: Jevity 1.5 Tube Feeding Method: Pump Tube Feeding Rate: 60 Current kCals Provided by Tube Feedin,160 Current Protein Provided by Tube Feeding (gPRO): 92 Current Free H2O Provided (m/l): 1,094 Assessment Assessment: Pt admitted for unresponsiveness and breakthrough seizures. Pt currently intubated. Current TF order is for Jevity 1.5 @ 60mls/hr. This is appropriate. TFing running at 10mls currently, recommend increasing TF by 10mls Q 4hrs to goal rate of 60mls/hr. Pt is underweight and is at high nutritional risk so recommend monitoring CMP as well as Magnesium and Phosphorus closely while TFing is being increased to goal. Pt on Dilantin at home but is not currently on it. Dietitian following. Recommendations: 1. Continue Jevity 1.5 @ 60mls/hr. 2. Recommend increasing 10mls Q 4hrs, but monitor CMP w/ Mg+ and Phos closely. Dietitian to Monitor: Lab values, Electrolytes, Intake & Output, Tube feeding tolerance, Weight change, Medical course
[2018-05-26] MEDS: Magnesium Sulfate Inj 2 GM in Sodium Chlor 0.9% Inj 96 ML IV.SIG PRN (11:59)
--- NOTE | 2018-05-26 14:05 | P.PNCC ---
Subjective Subjective Remarks/Hospital Course: Hospital Course: This is a 72-year-old male with a history of alcoholic cirrhosis and seizure disorder who presents with ongoing active grand mal seizures. He was altered in the field and unable to participate airway and was intubated in the field. No additional information is available from the patient. In the emergency department he was hypotensive requiring IV fluid boluses. Laboratory evidence is remarkable for an undetectable phenytoin level in a patient on chronic Dilantin therapy. Review of systems is unavailable due to the clinical condition of the patient. subjective: 05/26: EEG without ictal activity. phenytoin level now therapeutic. patient wakes and follows commands. will wean mechanical ventilation. however, etoh withdraw persists, and CAM+, so may be very difficult to extubate successfully. Objective Vital Signs / I&O: Vital Signs 05/25/18 14:45 05/25/18 14:51 05/25/18 14:53 Temperature Pulse Rate 147 H 119 H Respiratory Rate 18 18 18 Blood Pressure 127/74 176/92 H Pulse Oximetry 100 100 05/25/18 14:56 05/25/18 15:20 05/25/18 15:26 Temperature Pulse Rate 96 H 128 H Respiratory Rate 21 14 Blood Pressure 113/68 Pulse Oximetry 95 100 05/25/18 15:51 05/25/18 16:48 05/25/18 17:09 Temperature Pulse Rate 94 H 74 75 Respiratory Rate 14 14 14 Blood Pressure 140/80 125/71 116/64 Pulse Oximetry 100 100 100 05/25/18 17:43 05/25/18 18:40 05/25/18 18:51 Temperature Pulse Rate 80 92 H Respiratory Rate 14 14 14 Blood Pressure 115/67 58/37 L Pulse Oximetry 100 100 05/25/18 18:56 05/25/18 19:13 05/25/18 19:30 Temperature Pulse Rate 77 72 Respiratory Rate 14 14 11 L Blood Pressure 71/47 L 81/50 L Pulse Oximetry 100 100 100 05/25/18 20:20 05/25/18 20:24 05/25/18 20:30 Temperature 35.9 C L Pulse Rate 83 80 80 Respiratory Rate 12 11 L 11 L Blood Pressure 92/55 L 97/61 L Pulse Oximetry 100 100 98 05/25/18 20:45 05/25/18 21:00 05/25/18 21:15 Temperature Pulse Rate 79 79 82 Respiratory Rate 13 10 L 10 L Blood Pressure 93/61 L 89/55 L 90/53 L Pulse Oximetry 99 100 100 05/25/18 21:30 05/25/18 21:41 05/25/18 21:45 Temperature Pulse Rate 82 82 Respiratory Rate 13 18 11 L Blood Pressure 87/58 L 89/59 L Pulse Oximetry 100 100 05/25/18 22:00 05/25/18 22:15 05/25/18 22:30 Temperature 36.1 C L Pulse Rate 82 82 81 Respiratory Rate 11 L 14 16 Blood Pressure 91/55 L 88/55 L 90/57 L Pulse Oximetry 100 100 100 05/25/18 22:45 05/25/18 23:00 05/25/18 23:15 Temperature Pulse Rate 80 81 81 Respiratory Rate 10 L 14 12 Blood Pressure 85/53 L 88/53 L 93/59 L Pulse Oximetry 100 100 100 05/26/18 00:00 05/26/18 00:03 05/26/18 01:00 Temperature 37.0 C 36.9 C Pulse Rate 83 83 Respiratory Rate 14 15 12 Blood Pressure 94/57 L 93/56 L Pulse Oximetry 100 100 100 05/26/18 02:00 05/26/18 03:00 05/26/18 04:00 Temperature 36.4 C L 36.6 C 37.1 C Pulse Rate 82 79 84 Respiratory Rate 11 L 9 L 10 L Blood Pressure 77/49 L 85/50 L 88/52 L Pulse Oximetry 100 100 100 05/26/18 04:16 05/26/18 05:00 05/26/18 05:15 Temperature 36.6 C Pulse Rate 84 80 80 Respiratory Rate 15 11 L 11 L Blood Pressure 88/52 L 92/54 L Pulse Oximetry 100 100 100 05/26/18 05:30 05/26/18 05:45 05/26/18 06:00 Temperature 36.6 C Pulse Rate 78 79 77 Respiratory Rate 12 11 L 11 L Blood Pressure 84/53 L 84/54 L 88/52 L Pulse Oximetry 100 100 100 05/26/18 06:15 05/26/18 06:35 05/26/18 06:45 Temperature Pulse Rate 76 82 77 Respiratory Rate 12 13 11 L Blood Pressure 89/51 L 90/53 L 87/54 L Pulse Oximetry 100 97 100 05/26/18 07:00 05/26/18 07:15 05/26/18 07:30 Temperature 36.6 C Pulse Rate 76 76 76 Respiratory Rate 11 L 14 11 L Blood Pressure 93/54 L 91/56 L 88/50 L Pulse Oximetry 100 100 100 05/26/18 07:45 05/26/18 08:00 05/26/18 08:11 Temperature 36.6 C Pulse Rate 76 75 81 Respiratory Rate 12 13 18 Blood Pressure 94/52 L 92/52 L Pulse Oximetry 100 100 100 05/26/18 08:16 05/26/18 08:30 05/26/18 08:45 Temperature Pulse Rate 97 H 86 89 Respiratory Rate 30 H 12 12 Blood Pressure 115/53 L 104/55 L 107/55 L Pulse Oximetry 100 99 100 05/26/18 09:00 05/26/18 09:15 05/26/18 09:30 Temperature Pulse Rate 84 80 80 Respiratory Rate 8 L 6 L 6 L Blood Pressure 106/58 L 108/59 L 100/56 L Pulse Oximetry 100 100 100 05/26/18 09:45 05/26/18 10:00 05/26/18 10:16 Temperature Pulse Rate 78 79 96 H Respiratory Rate 3 L 5 L 20 Blood Pressure 98/55 L 97/56 L 100/59 L Pulse Oximetry 100 100 100 05/26/18 10:30 05/26/18 10:45 05/26/18 10:47 Temperature Pulse Rate 93 H 86 86 Respiratory Rate 23 9 L 12 Blood Pressure 101/67 80/51 L 77/52 L Pulse Oximetry 100 100 100 05/26/18 10:48 05/26/18 11:00 05/26/18 11:15 Temperature Pulse Rate 84 83 82 Respiratory Rate 10 L 11 L 11 L Blood Pressure 88/50 L 88/50 L 87/51 L Pulse Oximetry 100 100 100 05/26/18 11:30 05/26/18 11:43 05/26/18 11:45 Temperature Pulse Rate 80 84 Respiratory Rate 11 L 18 12 Blood Pressure 89/53 L 86/53 L Pulse Oximetry 100 100 05/26/18 12:00 05/26/18 12:15 05/26/18 12:30 Temperature 37.0 C Pulse Rate 83 84 85 Respiratory Rate 14 13 13 Blood Pressure 97/56 L 98/57 L 108/63 Pulse Oximetry 100 100 100 05/26/18 12:45 05/26/18 13:00 05/26/18 13:15 Temperature Pulse Rate 86 80 107 H Respiratory Rate 12 13 16 Blood Pressure 114/64 113/65 107/62 Pulse Oximetry 100 100 100 Intake & Output 05/25/18 05/26/18 05/26/18 18:59 06:59 18:59 Intake Total 1293 / 1293 403 / 403 Output Total 350 / 350 1100 / 1100 300 / 300 Balance -350 / -350 193 / 193 103 / 103 Weight 53.524 kg 52 kg Intake: IV 1223 / 1223 153 / 153 NS Inj 1,000 ML @ 125 mls/hr IV 1000 / 1000 .CONT .Q8H ALPHONSE Rx#:[id number] Cerebyx Inj 100 MGPE In NS Inj 52 / 52 52 / 52 50 ML @ 208 mls/hr IV.SIG Q8HR ALPHONSE Rx#:[id number] Cerebyx Inj 1,000 MGPE In NS 70 / 70 Inj 50 ML @ 280 mls/hr IV.SIG ONCE ONE Rx#:[id number] Thiamine Inj 100 MG In NS Inj 101 / 101 101 / 101 100 ML @ 100 mls/hr IV.SIG DAILY ALPHONSE Rx#:[id number] Tube Feeding 70 / 70 Water Bolus Amount 250 / 250 Output: Urine Amount (Catheter) 300 / 300 1100 / 1100 300 / 300 Indwelling Urethral Catheter 300 / 300 1100 / 1100 300 / 300 Gastric Drainage 50 / 50 Left Nare 50 / 50 Other: Weight On Admission 55 kg Result Diagrams: 05/26/18 06:35 05/26/18 06:35 Objective Remarks: GENERAL: Frail elderly cachectic male, lying in bed, intubated, sedated, critically ill HEENT: Normocephalic. Atraumatic. Pupils equal, round, reactive, conjugate. Mucous membranes are moist. Evidence of temporal wasting. NECK: Trachea is midline. There is no JVD. CHEST: Intubated with 7.5 ET tube. Equal chest rise. CARDIOVASCULAR: Normal rate, regular rhythm. Sinus. ABDOMEN: Soft, scaphoid, nontender, nondistended. No guarding. MUSCULOSKELETAL: Pulses 2+. No peripheral edema. NEUROLOGICAL: RASS -2. Moves all extremities spontaneously. follows intermittent commands. Withdraws to pain. Assessment and Plan - Assessment and Plan Plan: Assessment: 72-year-old male with alcohol dependence and alcohol withdrawal syndrome combined with known seizure disorder and apparently noncompliant with home seizure medications including Dilantin. work towards weaning mechanical ventilation. continue etoh withdraw therapies. Plan by systems: Neurologic: Alcohol dependence Alcohol withdrawal Seizure disorder with active seizures- improving. Medication noncompliance Acute combined toxic and metabolic encephalopathy- resolving. Frequent neurochecks Avoid long-acting sedatives Fentanyl and propofol for goal RASS -2 Fosphenytoin 100 mg IV every 8 hours Dilantin level in the morning EEG: formal read pending, prelim no ictal activity. ciwa protocol Scheduled Valium 20 mg at p.o. every 8 hours to help with EtOH withdrawal IV thiamine and multivitamins Head CT negative for acute disease 05/25. Respiratory: Acute hypoxic and hypercarbic respiratory failure Vent bundle Head of bed elevated Nebs start SBTs. Wean FiO2 for goal SPO2 greater than 90% Cardiovascular: Continue telemetry Maintenance IV fluids Renal: d/c tubbs. -- Strict I/Os FEN/GI: Alcoholic cirrhosis Acute protein calorie malnutritionsevere Severe hypokalemia- resolving. Acute intravascular volume depletion- resolving. Hyponatremia- resolved Dehydration- resolving. Low sodium is likely hypovolemic hyponatremia secondary to dehydration ICU electrolyte protocol tube feeds: Jevity at initial goal of 60 mils an hour Dietary consultation Maintenance IV fluids Daily BMP Heme/ID: No infectious etiology suspected this time Daily CBC Endocrine: Hyperglycemia of critical illness -- SSI Prophylaxis: GI Prophylaxis Pepcid DVT Prophylaxis -- SCDs Lovenox Lines: Peripheral IVs Tubbs Dispo: remain in ICU. Critically ill.
--- NOTE | 2018-05-26 15:01 | P.PNPAL ---
Palliative care consulted to assist with goals of medical treatment and assistance with identifying legal health care decision maker. In review of records, Mr. Barnett was previously seen by palliative care 01/2017. At that time he completed a health care surrogate form. Copy placed on chart and faxed to HIM to be scanned into EMR. Important Contacts * Carlos Alberto Barnett, son/primary HCS: [phone] * Amber Barnett, daughter/alternate HCS: [phone] or [phone] Spoke with ameya Carcamo via telephone. States he is currently out of state and will not return for 1-2 weeks. States he is available by phone anytime after 12- 1pm due to time difference. Carlos Alberto confirms his desire to remain health care surrogate. Verbalizes he "wants to see him get out of there one more time". Offered emotional support through active listening. Carlos Alberto reports he has not remained in contact with his sister, Amber. Palliative care full consultation to follow.
--- NOTE | 2018-05-26 15:52 | MG ---
cc: Sandra Orantes MD EEG #: [id number] REFERRING PHYSICIAN: Dr. Steve PATIENT IDENTIFICATIONS: In Room 503, with photic stimulation, intubated without any sedation. EEG in 01/2017, abnormal due to left hemispheric slowing. CT shows chronic small vessel changes, atrophy. INDICATION: A 72-year-old male, witnessed grand mal seizure by EMS, given Versed became unresponsive and apneic. History of alcohol abuse, seizures, alcoholic cirrhosis on Valium, fentanyl, Cerebyx, Pepcid. However, states that he is no longer sedated. DESCRIPTION OF RECORD: Overall moderate slowing of background noted, 2-3 Hz, 4 Hz at times. A lot of muscle artifact, seems like there is quite a bit of artifact in the recording. EKG cannot be interpreted either. No evidence of any epileptiform features. Photic stimulation without any significant driving response. IMPRESSION: Abnormal electroencephalogram due to moderate slowing of the background due to encephalopathic process of various etiology, but no gross epileptiform features were observed in this recording. Clinical correlation. MD KATELYN Ramesh/cesar/nahomy , 03:02 PM , 03:08 PM
[2018-05-26] MEDS: Enoxaparin Inj 40 MG/0.4 ML Syringe SQ SCH (21:10)
--- NOTE | 2018-05-26 22:06 | ECG ---
Date Performed: 05/25/2018 Time Performed: 15:22:28 PTAGE: 72 years EKG: Sinus rhythm ST DEVIATION AND MODERATE T-WAVE ABNORMALITY, CONSIDER ANTERIOR ISCHEMIA ABNORMAL ECG INTERPRETATION BASED ON A DEFAULT AGE OF 40 YEARS PREVIOUS TRACING : 03/18/2016 20.12 Since the previous tracing, no significant change not ed DOCTOR: Rad Fabian Interpretating Date/Time 05/26/2018 22:05:04
[2018-05-27] MEDS: Oral Hygiene Kit OROPHARYNG SCH ×4 (00:35→16:35)
[2018-05-27] MEDS: Insulin NovoLIN Regular Correctional Sugar Inj SQ SCH ×4 (00:40→17:31)
[2018-05-27] MEDS: Chlorhexidine Gluconate 2% 1 Pack (2 Cloths) TOPICAL SCH (04:54)
[2018-05-27 05:06] LABS: Calcium 7.9 mg/dL (8.5-10.1); Carbon Dioxide 23.2 meq/L (21.0-32.0); Magnesium 1.7 mg/dL (1.5-2.5)
[2018-05-27 05:07] LABS: Hemoglobin 8.9 gm/dL (13.0-17.0); Mean Corpuscular Hemoglobin 36.7 pg (27.0-34.0); Mean Corpuscular Volume 107.9 fL (80.0-100.0); Mean Platelet Volume 7.1 fL (7.0-11.0); Phosphorus 2.2 mg/dL (2.5-4.9); Platelet Count 286 th/mm3 (150-450); Red Blood Count 2.41 mil/mm3 (4.50-5.90); Red Cell Distribution Width 15.2 % (11.6-17.2); White Blood Count 9.7 th/mm3 (4.0-11.0)
[2018-05-27] MEDS: Fosphenytoin Inj 100 MGPE in Sodium Chlor 0.9% Inj 50 ML IV.SIG SCH (05:57)
[2018-05-27] MEDS: Thiamine Inj 100 MG in Sodium Chlor 0.9% Inj 100 ML IV.SIG SCH (08:27)
[2018-05-27] MEDS: Senna/Docusate Sodium 8.6/50 MG Tablet PO SCH ×2 (08:27→22:13)
[2018-05-27] MEDS: Chlorhexidine 0.12% Oral Kit 15 ML UDC OROPHARYNG SCH ×2 (08:27→21:45)
[2018-05-27] MEDS: Famotidine PF Inj 20 MG/2 ML Vial IV.PUSH SCH ×2 (08:27→21:45)
--- NOTE | 2018-05-27 09:32 | P.PNCC ---
Subjective Subjective Remarks/Hospital Course: Hospital Course: This is a 72-year-old male with a history of alcoholic cirrhosis and seizure disorder who presents with ongoing active grand mal seizures. He was altered in the field and unable to participate airway and was intubated in the field. No additional information is available from the patient. In the emergency department he was hypotensive requiring IV fluid boluses. Laboratory evidence is remarkable for an undetectable phenytoin level in a patient on chronic Dilantin therapy. Review of systems is unavailable due to the clinical condition of the patient. subjective: 05/26: EEG without ictal activity. phenytoin level now therapeutic. patient wakes and follows commands. will wean mechanical ventilation. however, etoh withdraw persists, and CAM+, so may be very difficult to extubate successfully. 05/27: no improvement in mental status. awakens and moves all extremities but does not follow commands. dilantin level slightly elevated this AM. will hold next dose and decrease future doses. ordered MRI to eval for ischemia. Son is the medical decision-maker and wants aggressive goals. daughter is "alternate" [id number] and was asking about hospice. Objective Vital Signs / I&O: Vital Signs 05/26/18 09:30 05/26/18 09:45 05/26/18 10:00 Temperature Pulse Rate 80 78 79 Respiratory Rate 6 L 3 L 5 L Blood Pressure 100/56 L 98/55 L 97/56 L Pulse Oximetry 100 100 100 05/26/18 10:16 05/26/18 10:30 05/26/18 10:45 Temperature Pulse Rate 96 H 93 H 86 Respiratory Rate 20 23 9 L Blood Pressure 100/59 L 101/67 80/51 L Pulse Oximetry 100 100 100 05/26/18 10:47 05/26/18 10:48 05/26/18 11:00 Temperature Pulse Rate 86 84 83 Respiratory Rate 12 10 L 11 L Blood Pressure 77/52 L 88/50 L 88/50 L Pulse Oximetry 100 100 100 05/26/18 11:15 05/26/18 11:30 05/26/18 11:43 Temperature Pulse Rate 82 80 Respiratory Rate 11 L 11 L 18 Blood Pressure 87/51 L 89/53 L Pulse Oximetry 100 100 05/26/18 11:45 05/26/18 12:00 05/26/18 12:15 Temperature 37.0 C Pulse Rate 84 83 84 Respiratory Rate 12 14 13 Blood Pressure 86/53 L 97/56 L 98/57 L Pulse Oximetry 100 100 100 05/26/18 12:30 05/26/18 12:45 05/26/18 13:00 Temperature Pulse Rate 85 86 80 Respiratory Rate 13 12 13 Blood Pressure 108/63 114/64 113/65 Pulse Oximetry 100 100 100 05/26/18 13:15 05/26/18 13:35 05/26/18 13:45 Temperature Pulse Rate 107 H 85 84 Respiratory Rate 16 16 14 Blood Pressure 107/62 113/60 109/59 L Pulse Oximetry 100 100 100 05/26/18 14:00 05/26/18 14:16 05/26/18 14:30 Temperature Pulse Rate 83 93 H 90 Respiratory Rate 13 17 13 Blood Pressure 105/59 L 102/65 106/64 Pulse Oximetry 100 100 100 05/26/18 14:38 05/26/18 14:45 05/26/18 15:00 Temperature Pulse Rate 95 H 80 90 Respiratory Rate 17 10 L 13 Blood Pressure 112/64 108/63 Pulse Oximetry 100 100 05/26/18 15:06 05/26/18 15:15 05/26/18 15:30 Temperature Pulse Rate 150 H 91 H Respiratory Rate 12 16 17 Blood Pressure 102/60 110/63 Pulse Oximetry 100 100 100 05/26/18 15:45 05/26/18 16:00 05/26/18 16:15 Temperature 37.1 C Pulse Rate 91 H 95 H 83 Respiratory Rate 13 16 12 Blood Pressure 123/69 122/71 118/68 Pulse Oximetry 100 100 100 05/26/18 16:30 05/26/18 16:45 05/26/18 17:00 Temperature Pulse Rate 82 88 82 Respiratory Rate 13 11 L 9 L Blood Pressure 122/68 119/68 109/61 Pulse Oximetry 100 100 100 05/26/18 17:23 05/26/18 17:30 05/26/18 18:00 Temperature Pulse Rate 81 83 93 H Respiratory Rate 14 14 19 Blood Pressure 116/61 107/60 105/56 L Pulse Oximetry 100 100 98 05/26/18 18:30 05/26/18 19:00 05/26/18 19:36 Temperature 36.6 C Pulse Rate 87 86 Respiratory Rate 15 19 17 Blood Pressure 113/66 106/61 Pulse Oximetry 100 98 100 05/26/18 19:44 05/26/18 20:00 05/26/18 21:00 Temperature 36.6 C Pulse Rate 87 97 H 101 H Respiratory Rate 18 18 18 Blood Pressure 115/74 125/58 L Pulse Oximetry 100 100 05/26/18 21:30 05/26/18 21:34 05/26/18 22:00 Temperature Pulse Rate 103 H 92 H Respiratory Rate 16 18 Blood Pressure 128/112 H 132/115 H 102/58 L Pulse Oximetry 98 100 05/26/18 22:30 05/26/18 22:56 05/26/18 23:00 Temperature Pulse Rate 93 H 100 H 93 H Respiratory Rate 16 18 11 L Blood Pressure 116/64 102/58 L 119/68 Pulse Oximetry 100 100 100 05/26/18 23:10 05/26/18 23:30 05/27/18 00:00 Temperature 36.6 C Pulse Rate 98 H 92 H Respiratory Rate 17 18 14 Blood Pressure 123/66 111/61 Pulse Oximetry 100 100 100 05/27/18 00:33 05/27/18 01:00 05/27/18 01:30 Temperature Pulse Rate 95 H 99 H 86 Respiratory Rate 23 21 15 Blood Pressure 122/56 L 120/73 113/62 Pulse Oximetry 100 100 100 05/27/18 02:00 05/27/18 02:30 05/27/18 03:00 Temperature Pulse Rate 90 88 87 Respiratory Rate 15 14 16 Blood Pressure 114/62 106/64 113/63 Pulse Oximetry 100 100 100 05/27/18 03:30 05/27/18 03:34 05/27/18 04:00 Temperature 36.7 C Pulse Rate 88 96 H 93 H Respiratory Rate 16 16 16 Blood Pressure 121/72 111/73 Pulse Oximetry 100 100 100 05/27/18 04:30 05/27/18 05:00 05/27/18 05:01 Temperature Pulse Rate 92 H 94 H 88 Respiratory Rate 13 15 16 Blood Pressure 116/70 125/59 L 125/59 L Pulse Oximetry 100 100 100 05/27/18 05:30 05/27/18 06:00 05/27/18 06:30 Temperature Pulse Rate 91 H 91 H 89 Respiratory Rate 16 11 L 16 Blood Pressure 119/60 117/62 115/61 Pulse Oximetry 100 100 100 05/27/18 07:00 05/27/18 07:30 05/27/18 07:43 Temperature Pulse Rate 88 91 H 95 H Respiratory Rate 14 16 16 Blood Pressure 117/59 L 121/61 Pulse Oximetry 100 100 05/27/18 08:00 05/27/18 08:31 05/27/18 09:00 Temperature 36.8 C Pulse Rate 88 97 H 97 H Respiratory Rate 15 27 H 20 Blood Pressure 111/61 112/63 127/64 Pulse Oximetry 100 100 100 Intake & Output 05/26/18 05/27/18 05/27/18 18:59 06:59 18:59 Intake Total 757 / 757 610 / 610 Output Total 300 / 300 1040 / 1040 Balance 457 / 457 -430 / -430 Weight 52.5 kg Intake: IV 305 / 305 104 / 104 Cerebyx Inj 100 MGPE In NS Inj 104 / 104 104 / 104 50 ML @ 208 mls/hr IV.SIG Q8HR ALPHONSE Rx#:[id number] Magnesium Sulfate Inj 2 GM In 100 / 100 NS Inj 96 ML @ 50 mls/hr IV.SIG UNSCH PRN Rx#:[id number] Thiamine Inj 100 MG In NS Inj 101 / 101 100 ML @ 100 mls/hr IV.SIG DAILY ALPHONSE Rx#:[id number] Tube Feeding 142 / 142 386 / 386 Water Bolus Amount 310 / 310 120 / 120 Output: Urine Amount (Catheter) 300 / 300 1040 / 1040 Indwelling Urethral Catheter 300 / 300 Straight 1040 / 1040 Result Diagrams: 05/27/18 03:38 05/27/18 03:38 Objective Remarks: GENERAL: Frail elderly cachectic male, lying in bed, intubated, sedated, critically ill HEENT: Normocephalic. Atraumatic. Pupils equal, round, reactive, conjugate. Mucous membranes are moist. Evidence of temporal wasting. NECK: Trachea is midline. There is no JVD. CHEST: Intubated with 7.5 ET tube. Equal chest rise. CARDIOVASCULAR: Normal rate, regular rhythm. Sinus. ABDOMEN: Soft, scaphoid, nontender, nondistended. No guarding. MUSCULOSKELETAL: Pulses 2+. No peripheral edema. NEUROLOGICAL: RASS -3. Moves all extremities spontaneously. doesn not follow commands this morning. Withdraws to pain. Assessment and Plan - Assessment and Plan Plan: Assessment: 72-year-old male with alcohol dependence and alcohol withdrawal syndrome combined with known seizure disorder and apparently noncompliant with home seizure medications including Dilantin. continue etoh withdraw therapies. MRI today. unable to extubate due to mental status. Plan by systems: Neurologic: Alcohol dependence Alcohol withdrawal Seizure disorder with active seizures- improving. Medication noncompliance Acute combined toxic and metabolic encephalopathy- resolving. Frequent neurochecks Avoid long-acting sedatives currently off all sedation. hold next dilantin dose. then decrease to Fosphenytoin 50 mg IV every 8 hours Dilantin level in the morning EEG 05/26: negative for ictal activity. generalized slowing. cinc protocol start weaning valium. IV thiamine and multivitamins Head CT negative for acute disease 05/25. MRI pending. Respiratory: Acute hypoxic and hypercarbic respiratory failure Vent bundle Head of bed elevated Nebs daily SBTs. cannot extubate due to mental status. Wean FiO2 for goal SPO2 greater than 90% Cardiovascular: Continue telemetry Maintenance IV fluids Renal: urinary retention - no indication for tubbs. straight cath q6h. -- Strict I/Os FEN/GI: Alcoholic cirrhosis Acute protein calorie malnutritionsevere Severe hypokalemia- resolving. Acute intravascular volume depletion- resolving. Hyponatremia- resolved Dehydration- resolving. ICU electrolyte protocol tube feeds: Jevity at goal rate of 60 ml/Hr nutrition consult and following. Maintenance IV fluids Daily BMP Heme/ID: No infectious etiology suspected this time Daily CBC Endocrine: Hyperglycemia of critical illness -- SSI Prophylaxis: GI Prophylaxis Pepcid DVT Prophylaxis -- SCDs Lovenox Lines: Peripheral IVs Tubbs Dispo: remain in ICU. Critically ill.
--- NOTE | 2018-05-27 10:12 | P.CONPAL ---
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 Unable to quantify Pertinent Non-Medical Issues: Psychosocial: Retired. 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 Has had multiple business none of which lasted 2/2 his drinking. . Has 10 kids. Originally from [place], grew up in [place], has been in [place] for 40 y. Lives with one of his daughters. Some of his children are local. Spiritual: Yazidism non-buddhism, daughter requests home energy inspector visit Legal: Pt is not capacitated to make medical decisions. It is unclear if he will regain capacity. He has previously designated son Carlos Alberto Barnett as primary HCS and daughter Amber as secondary. Ethical issues impacting care: none identified Important Contacts: Carlos Alberto Barnett, son/primary HCS: [phone] Amber Barnett, daughter/alternate HCS: [phone] or [phone] Prognosis: 72 yo male with seizure disorder since head injury 5 y ago, noncompliance with seizure meds, 50 year hx drinking up to or more than a gallon of wine daily admitted 05/25 after having seizure like activity, intubated in the field. EEG showing encephalopathy. He appears cachectic and malnourished. It is unclear if his encephalopathy will improve. His poor nutrition status makes full recovery unlikely. He is quite likely to continue having complications such as seizures d/t noncompliance, episodes of withdrawal, falls. He will likely continue to decline. Code Status: Full Code Plan: - LEGAL DECISON MAKER - HCS completed 02/13/17 Amber Sellers secondary - CODE STATUS- alternate code; intubation only. - GOALS - Primary HCS Carlos Alberto expressing aggressive goals short of alt code no CPR/shocks/ACLS drugs. He says "if the lord takes him, the lord takes him," but he feels his father can "come back from this, this time." Both Carlos Alberto and Amber eager for further updates, particularly re pending MRI. - SYMPTOMS - * dyspnea - intubated in field, now on [facility] vent. Vent weaning in progress, was tolerating CPAP. Has PRN and schedule duonebs. * confusion - multifactorial, long hx etoh abuse, seizure disorder, head injury. ?withdrawal vs seizures vs both? EEG showing encephalopathy, no seizure activity. sedation off since yesterday but pt not purposefully responsive, not following commands. MRI pending. has CIWA protocol. scheduled valium 20mg q8h, last had @ 0913. Had 2mg ativan @ 1500. - family requesting update after MRI report available - Palliative care will continue to follow during hospital course as condition evolves, to assist patient/decision-maker with understanding of medical conditions, weighing benefits/burdens of treatment options, for clarification of goals of treatment. Additionally will assist with any symptoms of palliative concern Appreciation Thank you for the opportunity to participate in the care of Berto Barnett. Attestation Attestation: To help prompt me to consider important information that might be impacting today's encounter and assessment, information from prior notes written by myself or my colleagues may have been "brought forward" into today's note. My signature on this note, however, is an attestation that I personally performed the exam, history, and/or decision-making noted today, and, unless otherwise indicated, the interactions with patient, family, and staff as well as the review of records all occurred today. I also attest that the listed assessment and stated plan reflect my best clinical judgment today based on the combination of historical information, prior notes, and today's exam/ interactions. When time spent is documented, it refers only to time spent today by the signer, or if indicated, combined time spent today by collaborating physician/nurse practitioner.
[2018-05-27] MEDS: fentaNYL 10 mcg/mL Premix Drip 2,500 MCG/250 ML BAG IV.SIG PRN (16:35)
--- NOTE | 2018-05-27 17:04 | MR ---
EXAM DATE: 05/27/2018 4:57 PM EDT AGE/SEX: 72 years / Male INDICATIONS: Altered mental status. CLINICAL DATA: This is the patient's initial encounter. Patient reports that signs and symptoms have been present for 2 days and indicates a pain score of Nonresponsive. MEDICAL/SURGICAL HISTORY: Seizures. Craniotomy. COMPARISON: [facility] [place], CT HEAD W/O CONTRAST, 05/25/2018. . TECHNIQUE: Multiplanar, multisequence examination of the brain was performed without contrast. FINDINGS: There is diffuse prominence of the CSF spaces, ventricles and cisterns. There is no evidence for acut e infarction on diffusion-weighted images. There is mild increased FLAIR signal in the bilateral mary ventricular white matter most characteristic of chronic microvascular ischemic disease. There is ence phalomalacia in the left temporal lobe from remote infarction. There are secretions in the nasopharyn x, left sphenoid sinus, and left ethmoid air cell mucosal thickening and opacification. CONCLUSION: 1. Atrophy, white matter disease and remote left temporal infarct with encephalomalacia. Electronically signed by: Rosales Gomez MD 05/27/2018 5:02 PM EDT
[2018-05-27] MEDS: Enoxaparin Inj 40 MG/0.4 ML Syringe SQ SCH (21:44)
[2018-05-27] MEDS: FOSPHENYTOIN IV.SIG SCH (21:49)
[2018-05-27] MEDS: SODIUM CHLOR IV.SIG SCH (21:49)
[2018-05-28] MEDS: Oral Hygiene Kit OROPHARYNG SCH ×4 (00:32→16:52)
[2018-05-28] MEDS: Insulin NovoLIN Regular Correctional Sugar Inj SQ SCH ×4 (01:01→18:06)
[2018-05-28] MEDS: Chlorhexidine Gluconate 2% 1 Pack (2 Cloths) TOPICAL SCH (05:44)
[2018-05-28] MEDS: SODIUM CHLOR IV.SIG SCH ×3 (05:44→23:02)
[2018-05-28] MEDS: FOSPHENYTOIN IV.SIG SCH ×3 (05:44→23:02)
[2018-05-28 07:28] LABS: Hematocrit 22.8 % (39.0-51.0); Hemoglobin 7.7 gm/dL (13.0-17.0); Mean Corpuscular HGB Conc 33.7 % (32.0-36.0); Mean Corpuscular Hemoglobin 36.1 pg (27.0-34.0); Mean Platelet Volume 7.2 fL (7.0-11.0); Platelet Count 278 th/mm3 (150-450); Red Blood Count 2.13 mil/mm3 (4.50-5.90); Red Cell Distribution Width 15.5 % (11.6-17.2); White Blood Count 10.4 th/mm3 (4.0-11.0)
[2018-05-28 07:50] LABS: Anion Gap 11 meq/L (5-15); Blood Urea Nitrogen 14 mg/dL (7-18); Calcium 7.7 mg/dL (8.5-10.1); Carbon Dioxide 23.2 meq/L (21.0-32.0); Chloride 106 meq/L (98-107); Glomerular Filtration Rate Greater Than 89 mL/min (>89); Glucose,Random 206 mg/dL (74-106); Magnesium 1.4 mg/dL (1.5-2.5); Potassium 3.6 meq/L (3.5-5.1); Sodium 140 meq/L (136-145)
[2018-05-28 07:53] LABS: Phenytoin (Dilantin) 26.3 mcg/mL (10.0-20.0); Phosphorus 2.8 mg/dL (2.5-4.9)
[2018-05-28] MEDS: Famotidine PF Inj 20 MG/2 ML Vial IV.PUSH SCH ×2 (09:55→20:43)
[2018-05-28] MEDS: Senna/Docusate Sodium 8.6/50 MG Tablet PO SCH ×2 (09:56→20:41)
[2018-05-28] MEDS: Chlorhexidine 0.12% Oral Kit 15 ML UDC OROPHARYNG SCH ×2 (09:56→20:42)
[2018-05-28] MEDS: Thiamine Inj 100 MG in Sodium Chlor 0.9% Inj 100 ML IV.SIG SCH (09:56)
--- NOTE | 2018-05-28 13:39 | P.PNCC ---
Subjective Subjective Remarks/Hospital Course: Hospital Course: This is a 72-year-old male with a history of alcoholic cirrhosis and seizure disorder who presents with ongoing active grand mal seizures. He was altered in the field and unable to participate airway and was intubated in the field. No additional information is available from the patient. In the emergency department he was hypotensive requiring IV fluid boluses. Laboratory evidence is remarkable for an undetectable phenytoin level in a patient on chronic Dilantin therapy. Review of systems is unavailable due to the clinical condition of the patient. subjective: 05/26: EEG without ictal activity. phenytoin level now therapeutic. patient wakes and follows commands. will wean mechanical ventilation. however, etoh withdraw persists, and CAM+, so may be very difficult to extubate successfully. 05/27: no improvement in mental status. awakens and moves all extremities but does not follow commands. dilantin level slightly elevated this AM. will hold next dose and decrease future doses. ordered MRI to eval for ischemia. Son is the medical decision-maker and wants aggressive goals. daughter is "alternate" [id number] and was asking about hospice. 05/28: Remains sedated, orally intubated on mechanical ventilation. Objective Vital Signs / I&O: Vital Signs 05/27/18 14:00 05/27/18 14:31 05/27/18 15:00 Temperature Pulse Rate 107 H 115 H 111 H Respiratory Rate 21 24 23 Blood Pressure 116/61 157/72 H 130/69 Pulse Oximetry 100 100 97 05/27/18 15:25 05/27/18 15:26 05/27/18 15:30 Temperature Pulse Rate 110 H 112 H Respiratory Rate 23 26 H 23 Blood Pressure 129/69 Pulse Oximetry 98 99 05/27/18 16:00 05/27/18 17:00 05/27/18 17:15 Temperature 98 F Pulse Rate 121 H 120 H 118 H Respiratory Rate 25 H 26 H 24 Blood Pressure 124/66 112/60 Pulse Oximetry 98 93 L 95 05/27/18 17:30 05/27/18 17:45 05/27/18 18:00 Temperature Pulse Rate 118 H 118 H 121 H Respiratory Rate 22 22 23 Blood Pressure 108/62 113/64 111/67 Pulse Oximetry 96 95 96 05/27/18 18:15 05/27/18 18:45 05/27/18 19:00 Temperature Pulse Rate 120 H 115 H Respiratory Rate 24 25 H Blood Pressure 108/66 94/57 L 87/53 L Pulse Oximetry 95 96 05/27/18 20:00 05/27/18 20:07 05/27/18 20:30 Temperature 100.4 F H Pulse Rate 111 H 109 H 108 H Respiratory Rate 26 H 24 26 H Blood Pressure 97/60 L 90/57 L Pulse Oximetry 98 97 05/27/18 21:00 05/27/18 21:30 05/27/18 22:00 Temperature Pulse Rate 106 H 104 H 104 H Respiratory Rate 23 19 23 Blood Pressure 91/55 L 96/56 L 93/59 L Pulse Oximetry 97 97 95 05/27/18 23:10 05/27/18 23:32 05/28/18 00:00 Temperature 98.6 F Pulse Rate 101 H 97 H Respiratory Rate 25 H 23 22 Blood Pressure 92/51 L 88/50 L Pulse Oximetry 95 100 94 L 05/28/18 01:00 05/28/18 02:00 05/28/18 02:01 Temperature Pulse Rate 95 H 93 H 92 H Respiratory Rate 21 24 25 H Blood Pressure 95/57 L 88/51 L 82/51 L Pulse Oximetry 98 98 97 05/28/18 02:07 05/28/18 03:00 05/28/18 03:27 Temperature Pulse Rate 98 H 91 H 92 H Respiratory Rate 22 22 22 Blood Pressure 88/51 L 87/54 L Pulse Oximetry 99 99 05/28/18 04:00 05/28/18 05:00 05/28/18 06:01 Temperature 98.5 F Pulse Rate 92 H 91 H 92 H Respiratory Rate 24 23 23 Blood Pressure 90/55 L 92/53 L 85/55 L Pulse Oximetry 100 100 100 05/28/18 07:00 05/28/18 07:40 05/28/18 07:45 Temperature 97.6 F Pulse Rate 92 H Respiratory Rate 24 25 H 25 H Blood Pressure 96/52 L Pulse Oximetry 100 100 100 05/28/18 08:00 05/28/18 09:00 05/28/18 10:00 Temperature Pulse Rate 94 H 91 H 93 H Respiratory Rate 19 23 25 H Blood Pressure 92/66 L 96/55 L 100/59 L Pulse Oximetry 100 100 98 05/28/18 11:00 05/28/18 11:05 Temperature Pulse Rate 95 H Respiratory Rate 26 H 23 Blood Pressure 99/58 L Pulse Oximetry 100 100 Intake & Output 05/27/18 05/28/18 05/28/18 18:59 06:59 18:59 Intake Total 828 / 828 51 / 51 952 / 952 Output Total 650 / 650 380 / 380 Balance 178 / 178 -329 / -329 952 / 952 Weight 52 kg Intake: IV 461 / 461 51 / 51 952 / 952 LR 1000 mL Inj 1,000 ML @ 200 800 / 800 mls/hr IV.CONT .Q5H ALPHONSE Rx#: [id number] Cerebyx Inj 50 MGPE In NS Inj 51 / 51 51 / 51 50 ML @ 208 mls/hr IV.SIG Q8HR ALPHONSE Rx#:[id number] Sodium Phosphate Inj 30 MMOL In 260 / 260 NS Inj 250 ML @ 42 mls/hr IV. SIG UNSCH PRN Rx#:[id number] Thiamine Inj 100 MG In NS Inj 101 / 101 101 / 101 100 ML @ 100 mls/hr IV.SIG DAILY ALPOHNSE Rx#:[id number] fentaNYL 10 mcg/mL Premix Drip 100 / 100 2,500 mcg In 250 ml @ 50 MCG/HR 5 mls/hr IV.SIG TITRATE PRN Rx #:[id number] Tube Feeding 307 / 307 Water Bolus Amount 60 / 60 Output: Urine Amount (Catheter) 650 / 650 380 / 380 Straight 650 / 650 380 / 380 Result Diagrams: 05/28/18 06:07 05/28/18 06:07 Objective Remarks: GENERAL: Frail elderly cachectic male, lying in bed, intubated, sedated, critically ill HEENT: Normocephalic. Atraumatic. Pupils equal, round, reactive, conjugate. Mucous membranes are moist. Evidence of temporal wasting. NECK: Trachea is midline. There is no JVD. CHEST: Intubated with 7.5 ET tube. Equal chest rise. CARDIOVASCULAR: Normal rate, regular rhythm. Sinus. ABDOMEN: Soft, scaphoid, nontender, nondistended. No guarding. MUSCULOSKELETAL: Pulses 2+. No peripheral edema. NEUROLOGICAL: RASS -3. Moves all extremities spontaneously. doesn not follow commands this morning. Withdraws to pain. Assessment and Plan - Assessment and Plan Plan: Assessment: 72-year-old male with alcohol dependence and alcohol withdrawal syndrome combined with known seizure disorder and apparently noncompliant with home seizure medications including Dilantin. continue etoh withdraw therapies. MRI today. unable to extubate due to mental status. Plan by systems: Neurologic: Alcohol dependence Alcohol withdrawal Seizure disorder with active seizures- improving. Medication noncompliance Acute combined toxic and metabolic encephalopathy- resolving. Frequent neurochecks Avoid long-acting sedatives currently off all sedation. Fosphenytoin decreased to50 mg IV every 8 hours on 05/27 Dilantin level in the morning EEG 05/26: negative for ictal activity. generalized slowing. cila protocol start weaning valium. IV thiamine and multivitamins Head CT negative for acute disease 05/25. MRI pending. Respiratory: Acute hypoxic and hypercarbic respiratory failure Vent bundle Head of bed elevated Nebs daily SBTs. cannot extubate due to mental status. Wean FiO2 for goal SPO2 greater than 90% Cardiovascular: Continue telemetry Maintenance IV fluids Renal: urinary retention - no indication for tubbs. straight cath q6h. -- Strict I/Os FEN/GI: Alcoholic cirrhosis Acute protein calorie malnutritionsevere Severe hypokalemia- resolving. Acute intravascular volume depletion- resolving. Hyponatremia- resolved Dehydration- resolving. ICU electrolyte protocol tube feeds: Jevity at goal rate of 60 ml/Hr nutrition consult and following. Maintenance IV fluids Daily BMP Heme/ID: No infectious etiology suspected this time Daily CBC Endocrine: Hyperglycemia of critical illness -- SSI Prophylaxis: GI Prophylaxis Pepcid DVT Prophylaxis -- SCDs Lovenox Lines: Peripheral IVs Tubbs Dispo: remain in ICU. Critically ill. Time spent on critical care excluding procedures 30 minutes
[2018-05-28] MEDS: Enoxaparin Inj 40 MG/0.4 ML Syringe SQ SCH (20:41)
[2018-05-29] MEDS: Insulin NovoLIN Regular Correctional Sugar Inj SQ SCH ×5 (00:48→23:57)
[2018-05-29] MEDS: Oral Hygiene Kit OROPHARYNG SCH ×5 (00:48→23:57)
[2018-05-29] MEDS: Chlorhexidine Gluconate 2% 1 Pack (2 Cloths) TOPICAL SCH (03:38)
[2018-05-29 06:12] LABS: Hematocrit 25.6 % (39.0-51.0); Hemoglobin 8.5 gm/dL (13.0-17.0); Mean Corpuscular HGB Conc 33.1 % (32.0-36.0); Mean Corpuscular Hemoglobin 33.8 pg (27.0-34.0); Mean Platelet Volume 7.4 fL (7.0-11.0); Platelet Count 351 th/mm3 (150-450); Red Blood Count 2.51 mil/mm3 (4.50-5.90); Red Cell Distribution Width 15.8 % (11.6-17.2); White Blood Count 15.3 th/mm3 (4.0-11.0)
[2018-05-29 06:28] LABS: Anion Gap 8 meq/L (5-15); Blood Urea Nitrogen 21 mg/dL (7-18); Calcium 8.2 mg/dL (8.5-10.1); Carbon Dioxide 26.6 meq/L (21.0-32.0); Chloride 107 meq/L (98-107); Glomerular Filtration Rate Greater Than 89 mL/min (>89); Glucose,Random 113 mg/dL (74-106); Magnesium 1.5 mg/dL (1.5-2.5); Potassium 4.3 meq/L (3.5-5.1)
[2018-05-29 06:30] LABS: Phenytoin (Dilantin) 20.5 mcg/mL (10.0-20.0); Phosphorus 2.2 mg/dL (2.5-4.9)
[2018-05-29 06:47] LABS: Sodium 142 meq/L (136-145)
[2018-05-29] MEDS: Senna/Docusate Sodium 8.6/50 MG Tablet PO SCH ×2 (08:43→20:35)
[2018-05-29] MEDS: Famotidine PF Inj 20 MG/2 ML Vial IV.PUSH SCH ×2 (08:43→20:34)
[2018-05-29] MEDS: Chlorhexidine 0.12% Oral Kit 15 ML UDC OROPHARYNG SCH ×2 (08:44→20:35)
[2018-05-29] MEDS: FOSPHENYTOIN IV.SIG SCH (09:10)
[2018-05-29] MEDS: SODIUM CHLOR IV.SIG SCH (09:10)
--- NOTE | 2018-05-29 10:05 | P.PNCC ---
Subjective Subjective Remarks/Hospital Course: Hospital Course: This is a 72-year-old male with a history of alcoholic cirrhosis and seizure disorder who presents with ongoing active grand mal seizures. He was altered in the field and unable to participate airway and was intubated in the field. No additional information is available from the patient. In the emergency department he was hypotensive requiring IV fluid boluses. Laboratory evidence is remarkable for an undetectable phenytoin level in a patient on chronic Dilantin therapy. Review of systems is unavailable due to the clinical condition of the patient. subjective: 05/26: EEG without ictal activity. phenytoin level now therapeutic. patient wakes and follows commands. will wean mechanical ventilation. however, etoh withdraw persists, and CAM+, so may be very difficult to extubate successfully. 05/27: no improvement in mental status. awakens and moves all extremities but does not follow commands. dilantin level slightly elevated this AM. will hold next dose and decrease future doses. ordered MRI to eval for ischemia. Son is the medical decision-maker and wants aggressive goals. daughter is "alternate" [id number] and was asking about hospice. 8/1: Remains sedated, orally intubated on mechanical ventilation. 8/2: Remains encephalopathic, sedated, orally intubated on mechanical ventilation. Tremors in right upper extremity. Objective Vital Signs / I&O: Vital Signs 05/28/18 11:00 05/28/18 11:05 05/28/18 12:00 Temperature 98.4 F Pulse Rate 95 H 93 H Respiratory Rate 26 H 23 23 Blood Pressure 99/58 L 94/51 L Pulse Oximetry 100 100 100 05/28/18 13:00 05/28/18 14:00 05/28/18 15:00 Temperature Pulse Rate 102 H 99 H 102 H Respiratory Rate 23 24 25 H Blood Pressure 99/59 L 115/59 L 106/68 Pulse Oximetry 100 100 100 05/28/18 15:45 05/28/18 16:00 05/28/18 17:00 Temperature 98.6 F Pulse Rate 107 H 105 H 109 H Respiratory Rate 25 H 28 H 24 Blood Pressure 109/60 106/55 L Pulse Oximetry 99 100 05/28/18 18:00 05/28/18 19:00 05/28/18 19:37 Temperature Pulse Rate 112 H 113 H 113 H Respiratory Rate 26 H 25 H 25 H Blood Pressure 108/74 118/65 Pulse Oximetry 100 100 100 05/28/18 20:00 05/28/18 21:00 05/28/18 22:00 Temperature 100.3 F H Pulse Rate 115 H 112 H 110 H Respiratory Rate 26 H 23 25 H Blood Pressure 120/66 116/61 106/57 L Pulse Oximetry 100 100 100 05/28/18 23:00 05/28/18 23:37 05/29/18 00:00 Temperature 99.8 F H Pulse Rate 107 H 108 H Respiratory Rate 24 23 26 H Blood Pressure 108/62 110/61 Pulse Oximetry 100 100 100 05/29/18 01:00 05/29/18 02:00 05/29/18 03:00 Temperature Pulse Rate 109 H 104 H 108 H Respiratory Rate 25 H 24 24 Blood Pressure 116/72 111/60 115/62 Pulse Oximetry 100 100 100 05/29/18 03:54 05/29/18 04:00 05/29/18 05:00 Temperature 99.1 F 99.1 F Pulse Rate 108 H 108 H 111 H Respiratory Rate 27 H 28 H 27 H Blood Pressure 109/67 110/77 Pulse Oximetry 100 99 100 05/29/18 06:00 05/29/18 08:10 05/29/18 09:16 Temperature 99.1 F Pulse Rate 116 H 114 H Respiratory Rate 24 25 H 26 H Blood Pressure 117/67 Pulse Oximetry 98 100 05/29/18 09:18 Temperature Pulse Rate Respiratory Rate 26 H Blood Pressure Pulse Oximetry 100 Intake & Output 05/28/18 05/29/18 05/29/18 18:59 06:59 18:59 Intake Total 1665 / 1665 289 / 289 51 / 51 Output Total 250 / 250 275 / 275 Balance 1415 / 1415 51 / 51 Weight 54 kg Intake: IV 1003 / 1003 / 51 51 / 51 LR 1000 mL Inj 1,000 ML @ 200 800 / 800 mls/hr IV.CONT .Q5H ALPHONSE Rx#: [id number] Cerebyx Inj 50 MGPE In NS Inj 102 / 102 51 / 51 51 / 51 50 ML @ 208 mls/hr IV.SIG Q8HR ALPHONSE Rx#:[id number] Thiamine Inj 100 MG In NS Inj 101 / 101 100 ML @ 100 mls/hr IV.SIG DAILY ALPHONSE Rx#:[id number] Tube Feeding 602 / 602 238 / 238 Water Bolus Amount 60 / 60 Output: Urine Amount (Catheter) 250 / 250 275 / 275 Straight 250 / 250 275 / 275 Result Diagrams: 05/29/18 05:48 05/29/18 05:48 Imaging: Chest X-Ray 05/25/18 15:22 CONCLUSION: No acute cardiopulmonary disease. Head CT 05/25/18 15:22 CONCLUSION: Chronic small vessel ischemic and atrophic changes. Head MRI 05/27/18 00:00 CONCLUSION: 1. Atrophy, white matter disease and remote left temporal infarct with encephalomalacia. Objective Remarks: GENERAL: Frail elderly cachectic male, lying in bed, intubated, sedated, critically ill HEENT: Normocephalic. Atraumatic. Pupils equal, round, reactive, conjugate. Mucous membranes are moist. Evidence of temporal wasting. NECK: Trachea is midline. There is no JVD. CHEST: Intubated with 7.5 ET tube. Equal chest rise. CARDIOVASCULAR: Normal rate, regular rhythm. Sinus. ABDOMEN: Soft, scaphoid, nontender, nondistended. No guarding. MUSCULOSKELETAL: Pulses 2+. No peripheral edema. NEUROLOGICAL: Remains encephalopathic, orally intubated on mechanical ventilation. Tremors noted in right upper extremity. Not following commands. Assessment and Plan - Assessment and Plan Plan: Assessment: 72-year-old male with alcohol dependence and alcohol withdrawal syndrome combined with known seizure disorder and apparently noncompliant with home seizure medications including Dilantin. continue etoh withdraw therapies. MRI today. unable to extubate due to mental status. Plan by systems: Neurologic: Alcohol dependence Alcohol withdrawal Seizure disorder with active seizures- improving. Medication noncompliance Acute combined toxic and metabolic encephalopathy- resolving. Frequent neurochecks Avoid long-acting sedatives currently off all sedation. Fosphenytoin decreased to 50 mg IV every 8 hours on 05/27 Dilantin level EEG 05/26: negative for ictal activity. generalized slowing. Repeat EEG ordered on 05/29 in view of tremors noted in right upper extremity. Neurology consult requested [facility] protocol start weaning valium. IV thiamine and multivitamins Head CT negative for acute disease 05/25. MRI results noted. Respiratory: Acute hypoxic and hypercarbic respiratory failure Vent bundle Head of bed elevated Nebs daily SBTs. cannot extubate due to mental status. Wean FiO2 for goal SPO2 greater than 90% Cardiovascular: Continue telemetry Maintenance IV fluids Renal: urinary retention - no indication for tubbs. straight cath q6h. -- Strict I/Os FEN/GI: Alcoholic cirrhosis Acute protein calorie malnutritionsevere Severe hypokalemia- resolving. Acute intravascular volume depletion- resolving. Hyponatremia- resolved Dehydration- resolving. ICU electrolyte protocol tube feeds: Jevity at goal rate of 60 ml/Hr nutrition consult and following. Maintenance IV fluids Daily BMP Heme/ID: No infectious etiology suspected this time Daily CBC Endocrine: Hyperglycemia of critical illness -- SSI Prophylaxis: GI Prophylaxis Pepcid DVT Prophylaxis -- SCDs Lovenox Lines: Peripheral IVs Tubbs Dispo: remain in ICU. Critically ill. Time spent on critical care excluding procedures 30 minutes
--- NOTE | 2018-05-29 12:14 | MB ---
cc: Marc Johnson MD DATE: 05/29/2018 HISTORY OF PRESENT ILLNESS: A 72-year-old man with a history of alcoholic cirrhosis, admitted 05/25/2018, brought in critically, history of seizure disorder, alcoholism, noncompliance, had a grand mal seizure. Paramedics were called. He was seizing, got 2 of Versed, became unresponsive, apneic and was intubated. A fentanyl drip was started. Potassium was 2.8. I am asked to see him for a possible seizure here. He had some tremors this morning all over his body. MEDICATIONS: He has been on Valium down an NG tube every 8 hours, lovenox 40 every 24 hours, fentanyl drip, 50 mg of fosphenytoin every 8 hours, Glucagon, Haldol p.r.n., and Ativan injection, the last on 05/27. He got thiamine. PHYSICAL EXAMINATION: VITAL SIGNS: Low grade temps only, 26 (he is ventilated), 111, 99/48-108/78. Lowest blood pressure 85/55 yesterday. NECK: There are no carotid bruits. HEART: Regular rate and rhythm. I do not detect a murmur. NEUROLOGIC: His pupils are equal. Doll's eyes are normal. He is intubated. To painful stimuli, no response. There is no ankle clonus. Toes are mute. To nasal stimuli, he did move his head back and forth, but no scowling. LABORATORY DATA: White count is 15,000, it was 4.5; hematocrit 25, platelet count 351. His Dilantin level is 20, was 26 yesterday. On basic metabolic profile, creatinine has been normal, calcium 8.2, phosphorus and magnesium normal. Glucose is elevated at 226. LFT has been minimally elevated only. Albumin is 2.6. ABG 7.64, 26, O2 of 113. He had a normal B12 in 2006 and a normal B6 and thyroid last year. PAST MEDICAL HISTORY: He has seen Neurology multiple times here. I saw him myself in 02/2016. [place] a boat. He had change in mental status, mumbling. He was moving all of his extremities. He was seen by Dr. Negron 2016. He noted a history of dementia, alcohol abuse, found again at home, possibly postictal. He was on Dilantin 100 every [address] was negative. MRI was negative. MRA looked overall okay. An EEG in 2016 was negative. We put him on Keppra. An LP was negative. Ultrasound and MRI were negative. He got some B12 shots. His last MRI 01/2017 without contrast was normal. He had a brain MRI done on 05/27/2018 that showed some atrophy, remote left temporal infarct. Review of those films, there is some damage to the left anterior temporal lobe. He has got some diffuse atrophy. No acute infarct is noted. No hemorrhage is seen. Reviewing a brain MRI from 01/2017, that damage was present in the temporal lobe at that time and that is old. He had CTA of his head and neck in 2012, both of which were normal. He had a head MRI in 2017 that was normal. IMPRESSION AND RECOMMENDATIONS: Temporal lobe damage, chronic; history of seizures and now more seizures; noncompliance with medications. His free Dilantin is actually quite high, would hold his Dilantin for now. We can stick him on IV Keppra, which would be a better medicine for him in general, because he does not need to follow to labs on it. He may be having a prolonged postictal state. We will check an ammonia level on him with some lab work. I will be following him with you in the hospital and we will review today's EEG. MD TREASURE Mccain/SHIVAM , 11:45 AM , 11:55 AM
[2018-05-29] MEDS: levETIRAcetam 1000mg/100mL Inj 100 ML IV.SIG SCH (12:55)
[2018-05-29 14:10] LABS: T4 (Thyroxine) 4.8 mcg/dL (4.5-12.1)
[2018-05-29 14:35] LABS: Thyroid Stimulating Hormone 0.298 uIU/mL (0.358-3.740)
[2018-05-29 14:40] LABS: Bacteria,Urine Many /hpf; Bilirubin,Urine Negative (Negative); Clarity,Urine Cloudy (Clear); Color,Urine Amber (Yellw/Straw); Glucose,Urine (UA) 50 mg/dL (Negative); Leukocyte Esterase,Urine Large (Negative); Nitrite,Urine Negative (Negative); Specific Gravity,Urine 1.017 (1.002-1.035); Squamous Epithelial Cell,Urine 1 /hpf (0-5); Urobilinogen,Urine 4 or Greater mg/dL (Less than 2)
--- NOTE | 2018-05-29 15:06 | P.PNPAL ---
Reason for Visit Reason for visit: a. To assist with evaluation and management of symptoms including: confusion, dyspnea b. To assist medical decision maker(s) with: better understanding of current medical conditions; weighing benefits/burdens of medical treatment options; making medical treatment decisions. Subjective Subjective/Interval History: MRI 05/27 showed atrophy, white matter disease, left temporal infarct with encephalomalacia. WBC today up to 15.3. RN reports cloudy urine, culture pending. Failing spontaneous breathing trials, becomes agitated. Neurology now following. Now on Kepprajulienneantin d/c. EEG pending. On my eval pt is unresponsive. Sedation off. Family/Friend Interactions: Provided medical update to [facility] Carlos Alberto Barnett. He is on his way here and anticipates arrival tomorrow afternoon. Spoke with secondary [facility] Amber on phone. Provided medical update. She communicates with most of other siblings. Says they are prepared for their father's , his casket is already picked out. She is not inclined to "prolong him dying." Advance Directives Health Care Surrogate Name and Number: Carlos Alberto Barnett [phone]; Amber Barnett [phone], Objective Vital Signs: Vital Signs 05/28/18 15:00 05/28/18 15:45 05/28/18 16:00 Temperature 98.6 F Pulse Rate 102 H 107 H 105 H Respiratory Rate 25 H 25 H 28 H Blood Pressure 106/68 109/60 Pulse Oximetry 100 99 05/28/18 17:00 05/28/18 18:00 05/28/18 19:00 Temperature Pulse Rate 109 H 112 H 113 H Respiratory Rate 24 26 H 25 H Blood Pressure 106/55 L 108/74 118/65 Pulse Oximetry 100 100 100 05/28/18 19:37 05/28/18 20:00 05/28/18 21:00 Temperature 100.3 F H Pulse Rate 113 H 115 H 112 H Respiratory Rate 25 H 26 H 23 Blood Pressure 120/66 116/61 Pulse Oximetry 100 100 100 05/28/18 22:00 05/28/18 23:00 05/28/18 23:37 Temperature Pulse Rate 110 H 107 H Respiratory Rate 25 H 24 23 Blood Pressure 106/57 L 108/62 Pulse Oximetry 100 100 100 05/29/18 00:00 05/29/18 01:00 05/29/18 02:00 Temperature 99.8 F H Pulse Rate 108 H 109 H 104 H Respiratory Rate 26 H 25 H 24 Blood Pressure 110/61 116/72 111/60 Pulse Oximetry 100 100 100 05/29/18 03:00 05/29/18 03:54 05/29/18 04:00 Temperature 99.1 F Pulse Rate 108 H 108 H 108 H Respiratory Rate 24 27 H 28 H Blood Pressure 115/62 109/67 Pulse Oximetry 100 100 99 05/29/18 05:00 05/29/18 06:00 05/29/18 08:00 Temperature 99.1 F 99.1 F 99.8 F H Pulse Rate 111 H 116 H 115 H Respiratory Rate 27 H 24 24 Blood Pressure 110/77 117/67 99/48 L Pulse Oximetry 100 98 100 05/29/18 08:10 05/29/18 09:00 05/29/18 09:16 Temperature Pulse Rate 115 H 114 H Respiratory Rate 25 H 26 H 26 H Blood Pressure Pulse Oximetry 100 100 05/29/18 09:18 05/29/18 10:00 05/29/18 11:54 Temperature Pulse Rate 111 H Respiratory Rate 26 H 26 H 25 H Blood Pressure Pulse Oximetry 100 100 99 05/29/18 12:00 05/29/18 14:00 Temperature 100.1 F H Pulse Rate 109 H 106 H Respiratory Rate 25 H Blood Pressure 95/44 L Pulse Oximetry 99 Intake & Output 05/28/18 05/29/18 05/29/18 18:59 06:59 18:59 Intake Total 1665 / 1665 289 / 289 51 / 51 Output Total 250 / 250 275 / 275 Balance 1415 / 1415 14 51 / 51 Weight 54 kg Intake: IV 1003 / 1003 51 / 51 51 / 51 LR 1000 mL Inj 1,000 ML @ 200 800 / 800 mls/hr IV.CONT .Q5H ALPHONSE Rx#: [id number] Cerebyx Inj 50 MGPE In NS Inj 102 / 102 51 / 51 51 / 51 50 ML @ 208 mls/hr IV.SIG Q8HR ALPHONSE Rx#:[id number] Thiamine Inj 100 MG In NS Inj 101 / 101 100 ML @ 100 mls/hr IV.SIG DAILY ALPHONSE Rx#:[id number] Tube Feeding 602 / 602 238 / 238 Water Bolus Amount 60 / 60 Output: Urine Amount (Catheter) 250 / 250 275 / 275 Straight 250 / 250 275 / 275 Physical Exam: CONSTITUTIONAL/GENERAL: cachectic TUBES/LINES/DRAINS: ET tube, NGT, tubbs, PIV SKIN: No jaundice, rashes, or lesions. No wounds seen anteriorly. Skin temperature appropriate. Not diaphoretic. HEAD: Atraumatic. Normocephalic. EYES: Right pupil sluggish, left pupil oval shaped and fixed. Subtle icterus. eyes glassy. Fundi not examined. ENT: Hearing grossly normal. Nose without bleeding or purulent drainage. Throat exam limited by ET tube. NECK: Trachea midline. CARDIOVASCULAR: tachycardic, irr HR, no gallops, or rubs. RESPIRATORY/CHEST: Symmetric, unlabored respirations. Clear to auscultation. Breath sounds equal bilaterally. No wheezes, rales, or rhonchi. GASTROINTESTINAL: Abdomen soft, non-tender, nondistended. No hepato-splenomegaly , or palpable masses. No guarding. Bowel sounds present. GENITOURINARY: Without palpable bladder distension. Tubbs catheter in place. MUSCULOSKELETAL: Extremities without clubbing, cyanosis, or edema NEUROLOGICAL: unresponsive PSYCHIATRIC: unable to assess 2/2 mental status Diagnostic Tests Laboratory: Laboratory Results - last 72 hr 05/26/18 05/27/18 05/27/18 18:13 00:39 03:38 WBC 9.7 RBC 2.41 L Hgb 8.9 L Hct 26.0 L MCV 107.9 H MCH 36.7 H MCHC 34.0 RDW 15.2 Plt Count 286 MPV 7.1 Sodium Potassium Chloride Carbon Dioxide Anion Gap BUN Creatinine Estimated GFR POC Glucose 192 H 192 H Random Glucose Calcium Phosphorus Magnesium Vitamin B12 TSH Thyroxine (T4) Urine Color Urine Clarity Urine pH Ur Specific [place] Urine Protein Urine Glucose (UA) Urine Ketones Urine Occult Blood Urine Nitrate Urine Bilirubin Urine Urobilinogen Ur Leukocyte Esterase Urine RBC Urine WBC Urine WBC Clumps Ur Squamous Epith Cells Urine Bacteria Micro UA Comment Urine Culture Comments Phenytoin 05/27/18 05/27/18 05/27/18 03:38 06:02 11:06 WBC RBC Hgb Hct MCV MCH MCHC RDW Plt Count MPV Sodium 141 Potassium 4.0 Chloride 109 H Carbon Dioxide 23.2 Anion Gap 9 BUN 10 Creatinine 0.86 Estimated GFR 87 L POC Glucose 128 H 171 H Random Glucose 151 H Calcium 7.9 L Phosphorus 2.2 L Magnesium 1.7 Vitamin B12 TSH Thyroxine (T4) Urine Color Urine Clarity Urine pH Ur Specific [place] Urine Protein Urine Glucose (UA) Urine Ketones Urine Occult Blood Urine Nitrate Urine Bilirubin Urine Urobilinogen Ur Leukocyte Esterase Urine RBC Urine WBC Urine WBC Clumps Ur Squamous Epith Cells Urine Bacteria Micro UA Comment Urine Culture Comments Phenytoin 22.0 H 05/27/18 05/28/18 05/28/18 17:20 00:30 05:48 WBC RBC Hgb Hct MCV MCH MCHC RDW Plt Count MPV Sodium Potassium Chloride Carbon Dioxide Anion Gap BUN Creatinine Estimated GFR POC Glucose 162 H 246 H 261 H Random Glucose Calcium Phosphorus Magnesium Vitamin B12 TSH Thyroxine (T4) Urine Color Urine Clarity Urine pH Ur Specific [place] Urine Protein Urine Glucose (UA) Urine Ketones Urine Occult Blood Urine Nitrate Urine Bilirubin Urine Urobilinogen Ur Leukocyte Esterase Urine RBC Urine WBC Urine WBC Clumps Ur Squamous Epith Cells Urine Bacteria Micro UA Comment Urine Culture Comments Phenytoin 05/28/18 05/28/18 05/28/18 06:07 06:07 12:32 WBC 10.4 RBC 2.13 L Hgb 7.7 L Hct 22.8 L MCV 107.0 H MCH 36.1 H MCHC 33.7 RDW 15.5 Plt Count 278 MPV 7.2 Sodium 140 Potassium 3.6 Chloride 106 Carbon Dioxide 23.2 Anion Gap 11 BUN 14 Creatinine 0.82 Estimated GFR Greater than 89 POC Glucose 223 H Random Glucose 206 H Calcium 7.7 L Phosphorus 2.8 Magnesium 1.4 L Vitamin B12 TSH Thyroxine (T4) Urine Color Urine Clarity Urine pH Ur Specific [place] Urine Protein Urine Glucose (UA) Urine Ketones Urine Occult Blood Urine Nitrate Urine Bilirubin Urine Urobilinogen Ur Leukocyte Esterase Urine RBC Urine WBC Urine WBC Clumps Ur Squamous Epith Cells Urine Bacteria Micro UA Comment Urine Culture Comments Phenytoin 26.3 H 05/28/18 05/29/18 05/29/18 18:05 00:46 05:48 WBC 15.3 H RBC 2.51 L Hgb 8.5 L Hct 25.6 L MCV 102.0 H D MCH 33.8 MCHC 33.1 RDW 15.8 Plt Count 351 MPV 7.4 Sodium Potassium Chloride Carbon Dioxide Anion Gap BUN Creatinine Estimated GFR POC Glucose 154 H 223 H Random Glucose Calcium Phosphorus Magnesium Vitamin B12 TSH Thyroxine (T4) Urine Color Urine Clarity Urine pH Ur Specific [place] Urine Protein Urine Glucose (UA) Urine Ketones Urine Occult Blood Urine Nitrate Urine Bilirubin Urine Urobilinogen Ur Leukocyte Esterase Urine RBC Urine WBC Urine WBC Clumps Ur Squamous Epith Cells Urine Bacteria Micro UA Comment Urine Culture Comments Phenytoin 05/29/18 05/29/18 05/29/18 05:48 12:23 12:57 WBC RBC Hgb Hct MCV MCH MCHC RDW Plt Count MPV Sodium 142 Potassium 4.3 Chloride 107 Carbon Dioxide 26.6 Anion Gap 8 BUN 21 H Creatinine 0.79 Estimated GFR Greater than 89 POC Glucose 235 H Random Glucose 113 H Calcium 8.2 L Phosphorus 2.2 L Magnesium 1.5 Vitamin B12 658 TSH 0.298 L Thyroxine (T4) 4.8 Urine Color Urine Clarity Urine pH Ur Specific [place] Urine Protein Urine Glucose (UA) Urine Ketones Urine Occult Blood Urine Nitrate Urine Bilirubin Urine Urobilinogen Ur Leukocyte Esterase Urine RBC Urine WBC Urine WBC Clumps Ur Squamous Epith Cells Urine Bacteria Micro UA Comment Urine Culture Comments Phenytoin 20.5 H 05/29/18 13:45 WBC RBC Hgb Hct MCV MCH MCHC RDW Plt Count MPV Sodium Potassium Chloride Carbon Dioxide Anion Gap BUN Creatinine Estimated GFR POC Glucose Random Glucose Calcium Phosphorus Magnesium Vitamin B12 TSH Thyroxine (T4) Urine Color [place] Urine Clarity Cloudy H Urine pH 6.0 Ur Specific [place] 1.017 Urine Protein 100 H Urine Glucose (UA) 50 Urine Ketones Negative Urine Occult Blood Moderate H Urine Nitrate Negative Urine Bilirubin Negative Urine Urobilinogen 4 or greater Ur Leukocyte Esterase Large H Urine RBC 4 H Urine WBC Urine WBC Clumps Occasional H Ur Squamous Epith Cells 1 Urine Bacteria Many H Micro UA Comment Cath-culture ind Urine Culture Comments Cath-cult indicated Phenytoin Result Diagrams: 05/29/18 05:48 05/29/18 05:48 Imaging: ITS Impressions Chest X-Ray 05/25/18 15:22 CONCLUSION: No acute cardiopulmonary disease. Head CT 05/25/18 15:22 CONCLUSION: Chronic small vessel ischemic and atrophic changes. Head MRI 05/27/18 00:00 CONCLUSION: 1. Atrophy, white matter disease and remote left temporal infarct with encephalomalacia. 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 Has had multiple business none of which lasted 2/2 his drinking. . Has 10 kids. Originally from [place], grew up in [place], has been in [place] for 40 y. Lives with one of his daughters. Some of his children are local. Spiritual: Cheondoism non-jain, daughter requests compliance attorney visit Legal: Pt is not capacitated to make medical decisions. It is unclear if he will regain capacity. He has previously designated son Carlos Alberto Barnett as primary HCS and daughter Amber as secondary. Ethical issues impacting care: none identified Important Contacts: Carlos Alberto Barnett, son/primary HCS: [phone] Amber Barnett daughter/alternate HCS: [phone] or [phone] Prognosis: 72 yo male with seizure disorder since head injury 5 y ago, noncompliance with seizure meds, 50 year hx drinking up to or more than a gallon of wine daily admitted 05/25 after having seizure like activity, intubated in the field. EEG showing encephalopathy. He appears cachectic and malnourished. It is unclear if his encephalopathy will improve. His poor nutrition status makes full recovery unlikely. He is quite likely to continue having complications such as seizures d/t noncompliance, episodes of withdrawal, falls. He will likely continue to decline. Code Status: Alternative Code (intubation only) Plan: - LEGAL DECISON MAKER - [facility] completed 02/13/17 Amber Sellers secondary - CODE STATUS- alternate code; intubation only. - GOALS - Primary [facility] Carlos Alberto expressing aggressive goals short of alt code no CPR/shocks/ACLS drugs. He says "if the lord takes him, the lord takes him," but he feels his father can "come back from this, this time." Carlos Alberto is en route to [place] to visit his father tomorrow. Amber secondary [facility] is in touch with other siblings and communicated less aggressive goals, "his casket is picked out." - SYMPTOMS - * dyspnea - intubated in field, now on mech vent. failed spontaneous breathing trials 2/2 agitation.. fiO2 30%. Has PRN and scheduled duonebs. * confusion - multifactorial, long hx etoh abuse, seizure disorder, head injury. ?withdrawal vs seizures vs both? EEG 05/26 showing encephalopathy, no seizure activity. sedation off 2 days but pt not responsive. has CIWA protocol. scheduled valium 20mg q8h, last had @ 0843 this morning. Neurology now on case. Consider checking NH. - [facility] Carlos Alberto coming to see pt tomorrow afternoon - Palliative care will continue to follow during hospital course as condition evolves, to assist patient/decision-maker with understanding of medical conditions, weighing benefits/burdens of treatment options, for clarification of goals of treatment. Additionally will assist with any symptoms of palliative concern Attestation Attestation: To help prompt me to consider important information that might be impacting today's encounter and assessment, information from prior notes written by myself or my colleagues may have been "brought forward" into today's note. My signature on this note, however, is an attestation that I personally performed the exam, history, and/or decision-making noted today, and, unless otherwise indicated, the interactions with patient, family, and staff as well as the review of records all occurred today. I also attest that the listed assessment and stated plan reflect my best clinical judgment today based on the combination of historical information, prior notes, and today's exam/ interactions. When time spent is documented, it refers only to time spent today by the signer, or if indicated, combined time spent today by collaborating physician/nurse practitioner.
--- NOTE | 2018-05-29 16:00 | MG ---
cc: Sandra Orantes MD EEG NUMBER: [id number] REFERRING PHYSICIAN: Dr. Mckee. CLINICAL HISTORY: In room 503, intubated, no sedation, unresponsive. Photic stimulation only done. EEG 05/26/2018 shows moderate slowing. The patient apparently had some shaking episodes this morning, lasting for 7 minutes. No change in vital signs, or heart rate or oxygen saturation. Has been running low temperatures. History of alcohol abuse, seizure disorder, cirrhosis. On Valium, lovenox, thiamine and Cerebyx. DESCRIPTION OF RECORD: He has overall moderate slowing of the background 3-4 Hz. Some artifact due to reprepping lead P3. EKG looks like a sinus rhythm. No gross epileptiform features observed in this recording. Photic stimulation was done. There seems to be more artifact than a driving response. IMPRESSION: Abnormal electroencephalogram due to moderate slowing still seen in the background of this recording, without any epileptiform features. Clinical correlation. Sandra Orantes MD DF/SHIVAM , 03:50 PM , 03:55 PM
[2018-05-29] MEDS: Enoxaparin Inj 40 MG/0.4 ML Syringe SQ SCH (20:35)
[2018-05-30] MEDS: levETIRAcetam 1000mg/100mL Inj 100 ML IV.SIG SCH ×2 (00:01→15:17)
[2018-05-30] MEDS: Oral Hygiene Kit OROPHARYNG SCH ×3 (03:56→16:41)
[2018-05-30] MEDS: Chlorhexidine Gluconate 2% 1 Pack (2 Cloths) TOPICAL SCH (03:56)
[2018-05-30] MEDS: Insulin NovoLIN Regular Correctional Sugar Inj SQ SCH ×3 (06:11→18:20)
--- NOTE | 2018-05-30 07:49 | P.PNNEU ---
Subjective Subjective Comments: No acute events reported Active Medications: Active Medications Al Hydroxide/Mg Hydroxide (Milk Of Magnjose Liq) 30 ml PO Q12H PRN PRN Reason: Mild Constipation Albuterol (Duoneb Neb (Prn)) 1 ampul NEB Q2HR NEB PRN PRN Reason: WHEEZING Bisacodyl (Dulcolax Supp) 10 mg RECTAL DAILY PRN PRN Reason: SEVERE CONSITIPATION Chlorhexidine Gluconate (Peridex 0.12% Oral Kit) 15 ml OROPHARYNG BID@0800, 2000 [facility] Last Admin: 05/29/18 20:35 Dose: 15 ml Chlorhexidine Gluconate (Chlorhexidine 2% Cloth) 3 pack TOPICAL DAILY@0400 [facility]PHONSE Stop: 05/31/18 03:59 Last Admin: 05/30/18 03:56 Dose: 3 pack Chlorhexidine Gluconate (Chlorhexidine 2% Cloth) 3 pack TOPICAL DAILY@0400 PRN PRN Reason: Extra cloth needed Stop: 05/31/18 03:59 Dextrose (D50w Vial) 50 ml IV.PUSH UNSCH PRN PRN Reason: PER HYPOGLYCEMIA PROTOCOL Diazepam (Valium) 5 mg PO Q8H [facility]; Taper Stop: 06/01/18 17:29 Last Admin: 05/30/18 01:24 Dose: 5 mg Enoxaparin Sodium (Lovenox Inj) 40 mg SQ Q24H [facility] Last Admin: 05/29/18 20:35 Dose: 40 mg Famotidine (Pepcid Pf Inj) 20 mg IV.PUSH Q12HR [facility] Last Admin: 05/29/18 20:34 Dose: 20 mg Flumazenil (Romazecon Inj) 0.2 mg IV.PUSH Q1M PRN PRN Reason: OVERSEDATION Glucagon (Glucagon Inj) 1 mg OTHER PRN PRN PRN Reason: for Hypoglycemia Protocol Haloperidol Lactate (Haldol Inj) 1 mg IV.PUSH Q15M PRN PRN Reason: for severe agitation Fentanyl (Fentanyl 10 Mcg/Ml Premix Drip) 2,500 mcg in 250 mls @ 5 mls/hr IV.SIG TITRATE PRN; Protocol PRN Reason: Per Protocol Last Titration: 05/28/18 00:00 Dose: 0 mcg/hr, 0 mls/hr Magnesium Sulfate Inj 4 gm/ (Sodium Chloride) 100 mls @ 50 mls/hr IV.SIG UNSCH PRN PRN Reason: For Magnesium 0.9 - 1.1 mg/dL Magnesium Sulfate Inj 2 gm/ (Sodium Chloride) 100 mls @ 50 mls/hr IV.SIG UNSCH PRN PRN Reason: For Magnesium 1.2 - 1.6 mg/dL Last Infusion: 05/26/18 16:41 Dose: Infused Potassium Chloride (Kcl 40 Meq Premix Inj) 40 meq in 100 mls @ 25 mls/hr IV.SIG Q2H PRN PRN Reason: For Potassium 2.8 - 3.2 mEq/L Potassium Chloride (Kcl 40 Meq Premix Inj) 40 meq in 100 mls @ 25 mls/hr IV.SIG UNSCH PRN PRN Reason: For Potassium 3.3 - 3.5 mEq/L Potassium Chloride (Kcl 20 Meq Premix Inj) 20 meq in 100 mls @ 50 mls/hr IV.SIG Q2H PRN PRN Reason: For Potassium 2.8 - 3.2 mEq/L Potassium Phosphate 30 mmol/ (Sodium Chloride) 260 mls @ 42 mls/hr IV.SIG UNSCH PRN PRN Reason: SEE LABEL COMMENTS Sodium Phosphate 30 mmol/ (Sodium Chloride) 260 mls @ 42 mls/hr IV.SIG UNSCH PRN PRN Reason: For Phosphorus < 2.5 mg/dL Last Infusion: 05/27/18 14:58 Dose: Infused Potassium Chloride (Kcl 20 Meq Premix Inj) 20 meq in 100 mls @ 50 mls/hr IV.SIG Q2H PRN PRN Reason: For Potassium 3.3 - 3.5 mEq/L Propofol (Diprivan 1000 Mg/100 Ml Inj) 1,000 mg in 100 mls @ 1.606 mls/hr IV.CONT TITRATE PRN; Protocol PRN Reason: Per Protocol Last Titration: 05/25/18 20:20 Dose: 0 mcg/kg/min, 0 mls/hr Levetiracetam (Keppra 1000 Mg/100 Ml Premix) 100 mls @ 400 mls/hr IV.SIG Q12H ALPHONSE Last Infusion: 05/30/18 00:30 Dose: Infused Insulin Human Regular (Novolin R Correctional Sugar Inj) 0 units SQ Q6HR ALPHONSE; Protocol Last Admin: 05/30/18 06:11 Dose: 4 units Lactulose (Lactulose Liq) 30 ml PO DAILY PRN PRN Reason: SEVERE CONSITIPATION Lorazepam (Ativan) 2 mg PO Q2H PRN PRN Reason: for CIWA 11-14 Lorazepam (Ativan Inj) 2 mg IV.PUSH Q2H PRN PRN Reason: for CIWA 11-14 Lorazepam (Ativan Inj) 2 mg IV.PUSH Q1H PRN PRN Reason: for CIWA 15-20 Last Admin: 05/27/18 15:59 Dose: 2 mg Lorazepam (Ativan Inj) 2 mg IV.PUSH Q15M PRN PRN Reason: for CIWA > 20 Lorazepam (Ativan Inj) 1 mg IV.PUSH Q4H PRN PRN Reason: for CIWA 8-10 Last Admin: 05/27/18 12:52 Dose: 1 mg Lorazepam (Ativan) 1 mg PO Q4H PRN PRN Reason: for CIWA 8-10 Magnesium Oxide (Mag-Ox) 800 mg PO UNSCH PRN PRN Reason: For Magnesium 1.2 - 1.6 mg/dL Metoprolol Tartrate (Lopressor Inj) 5 mg IV.PUSH Q5M PRN PRN Reason: HR > 120 Miscellaneous (Pill Splitter) 1 each OTHER UNSCH PRN PRN Reason: PILL SPLITTER Ondansetron HCl (Zofran Inj) 4 mg IV.PUSH Q6H PRN PRN Reason: NAUSEA OR VOMITING Potassium Bicarb/Potassium Chloride (K-Lyte Cl Eff) 50 meq PO UNSCH PRN PRN Reason: For Potassium 3.3 - 3.5 mEq/L Last Admin: 05/26/18 11:33 Dose: 50 meq Potassium Phosphate (K-Phos Original) 2,000 mg PO Q4H PRN PRN Reason: Phosphorus Less Than 2.5 mg/dL Potassium Phosphate (K-Phos Original) 2,000 mg PO UNSCH PRN PRN Reason: SEE LABEL COMMENTS Senna/Docusate Sodium (Anupama-Colace) 1 tab PO BID [facility] Last Admin: 05/29/18 20:35 Dose: 1 tab Sennosides (Senokot) 17.2 mg PO Q12H PRN PRN Reason: Moderate Constipation Sodium Chloride (Ns Flush) 2 ml IV.FLUSH BID [facility] Last Admin: 05/29/18 20:34 Dose: 2 ml Sodium Chloride (Ns Flush) 2 ml IV.FLUSH PRN PRN PRN Reason: FLUSH AFTER USING IV ACCESS Last Admin: 05/27/18 08:27 Dose: 2 ml Thiamine HCl (Vitamin B1) 100 mg PO DAILY [facility]PHONSE Last Admin: 05/29/18 08:43 Dose: 100 mg Allergies/Adverse Reactions: Allergies Allergy/AdvReac Type Severity Reaction Status Date / Time Unable to Assess Allergy Unknown Unconscious Verified 05/25/18 17:12 Physical Exam Vital signs: Vital Signs 05/29/18 08:00 05/29/18 08:10 05/29/18 09:00 Temperature 99.8 F H Pulse Rate 115 H 115 H Respiratory Rate 24 25 H 26 H Blood Pressure 99/48 L Pulse Oximetry 100 100 100 05/29/18 09:16 05/29/18 09:18 05/29/18 10:00 Temperature Pulse Rate 114 H 111 H Respiratory Rate 26 H 26 H 26 H Blood Pressure Pulse Oximetry 100 100 05/29/18 11:54 05/29/18 12:00 05/29/18 14:00 Temperature 100.1 F H Pulse Rate 109 H 106 H Respiratory Rate 25 H 25 H Blood Pressure 95/44 L Pulse Oximetry 99 99 05/29/18 15:09 05/29/18 16:00 05/29/18 17:00 Temperature 100.2 F H Pulse Rate 108 H 107 H 107 H Respiratory Rate 24 24 22 Blood Pressure 96/43 L 98/48 L Pulse Oximetry 100 100 100 05/29/18 18:00 05/29/18 19:00 05/29/18 20:00 Temperature 101.7 F H Pulse Rate 109 H 109 H 109 H Respiratory Rate 24 24 26 H Blood Pressure 95/43 L 94/44 L 96/47 L Pulse Oximetry 100 100 100 05/29/18 21:00 05/29/18 21:27 05/29/18 22:00 Temperature Pulse Rate 110 H 110 H 111 H Respiratory Rate 25 H 24 25 H Blood Pressure 96/45 L 99/45 L Pulse Oximetry 100 100 100 05/29/18 23:00 05/29/18 23:20 05/30/18 00:00 Temperature 98.5 F Pulse Rate 105 H 102 H Respiratory Rate 21 23 23 Blood Pressure 96/45 L 95/44 L Pulse Oximetry 100 100 100 05/30/18 01:00 05/30/18 01:16 05/30/18 02:00 Temperature Pulse Rate 101 H 99 H 99 H Respiratory Rate 21 21 Blood Pressure 108/51 L 94/42 L Pulse Oximetry 100 100 05/30/18 03:00 05/30/18 03:18 05/30/18 03:30 Temperature Pulse Rate 100 H 101 H 100 H Respiratory Rate 20 24 25 H Blood Pressure 96/42 L 122/65 123/76 Pulse Oximetry 100 100 100 05/30/18 03:46 05/30/18 04:00 05/30/18 04:32 Temperature Pulse Rate 101 H 104 H Respiratory Rate 21 26 H 22 Blood Pressure 123/67 129/78 Pulse Oximetry 100 100 100 05/30/18 06:00 05/30/18 07:38 Temperature Pulse Rate 104 H Respiratory Rate 23 Blood Pressure Pulse Oximetry 100 Intake & Output 05/29/18 05/30/18 05/30/18 18:59 06:59 18:59 Intake Total 849 / 849 856 / 856 Output Total 450 / 450 375 / 375 Balance 399 / 399 481 / 481 Weight 54 kg Intake: IV 151 / 151 100 / 100 Cerebyx Inj 50 MGPE In NS Inj 51 / 51 50 ML @ 208 mls/hr IV.SIG Q8HR ALPHONSE Rx#:[id number] Keppra 1000 mg/100 mL Premix 100 / 100 100 / 100 100 ML @ 400 mls/hr IV.SIG Q12H ALPHONSE Rx#:[id number] Tube Feeding 698 / 698 756 / 756 Output: Urine Amount (Catheter) 450 / 450 375 / 375 Straight 450 / 450 375 / 375 Narrative: comatose - Urinary Catheter Management Indwelling Urethral Catheter Cath placed during this visit: yes, but has since been removed by the nurse Reason for continuing: Not indwelling catheter Insertion date: 05/25/18 Insertion time: 15:00 Removal date: 05/26/18 Removal time: 12:00 Straight Cath placed during this visit: yes Reason for continuing: Not indwelling catheter Insertion date: 05/29/18 Insertion time: 06:40 Objective Laboratory Results - last 24 hr 05/29/18 05/29/18 05/29/18 12:23 12:57 13:45 POC Glucose 235 H Vitamin B12 658 TSH 0.298 L Thyroxine (T4) 4.8 Urine Color [place] Urine Clarity Cloudy H Urine pH 6.0 Ur Specific [place] 1.017 Urine Protein 100 H Urine Glucose (UA) 50 Urine Ketones Negative Urine Occult Blood Moderate H Urine Nitrate Negative Urine Bilirubin Negative Urine Urobilinogen 4 or greater Ur Leukocyte Esterase Large H Urine RBC 4 H Urine WBC Urine WBC Clumps Occasional H Ur Squamous Epith Cells 1 Urine Bacteria Many H Micro UA Comment Cath-culture ind Urine Culture Comments Cath-cult indicated 05/29/18 17:10 POC Glucose 172 H Vitamin B12 TSH Thyroxine (T4) Urine Color Urine Clarity Urine pH Ur Specific [place] Urine Protein Urine Glucose (UA) Urine Ketones Urine Occult Blood Urine Nitrate Urine Bilirubin Urine Urobilinogen Ur Leukocyte Esterase Urine RBC Urine WBC Urine WBC Clumps Ur Squamous Epith Cells Urine Bacteria Micro UA Comment Urine Culture Comments Review/Management - Review/Management Plan: imp mri and eeg neg on keppra hold all sedatives could be prolonged postictal will fu saturday see if awakens over next few days no apparent reason why he would not
[2018-05-30] MEDS: Famotidine PF Inj 20 MG/2 ML Vial IV.PUSH SCH ×2 (08:33→20:44)
[2018-05-30] MEDS: Chlorhexidine 0.12% Oral Kit 15 ML UDC OROPHARYNG SCH ×2 (08:33→20:44)
[2018-05-30] MEDS: Senna/Docusate Sodium 8.6/50 MG Tablet PO SCH ×2 (08:34→20:44)
--- NOTE | 2018-05-30 09:46 | P.PNCC ---
Subjective Subjective Remarks/Hospital Course: Hospital Course: This is a 72-year-old male with a history of alcoholic cirrhosis and seizure disorder who presents with ongoing active grand mal seizures. He was altered in the field and unable to participate airway and was intubated in the field. No additional information is available from the patient. In the emergency department he was hypotensive requiring IV fluid boluses. Laboratory evidence is remarkable for an undetectable phenytoin level in a patient on chronic Dilantin therapy. Review of systems is unavailable due to the clinical condition of the patient. subjective: 05/26: EEG without ictal activity. phenytoin level now therapeutic. patient wakes and follows commands. will wean mechanical ventilation. however, etoh withdraw persists, and CAM+, so may be very difficult to extubate successfully. 05/27: no improvement in mental status. awakens and moves all extremities but does not follow commands. dilantin level slightly elevated this AM. will hold next dose and decrease future doses. ordered MRI to eval for ischemia. Son is the medical decision-maker and wants aggressive goals. daughter is "alternate" [id number] and was asking about hospice. 8/1: Remains sedated, orally intubated on mechanical ventilation. 8/2: Remains encephalopathic, sedated, orally intubated on mechanical ventilation. Tremors in right upper extremity. 8/3: Remains encephalopathic, orally intubated on mechanical ventilation. Neuro consult noted. Objective Vital Signs / I&O: Vital Signs 05/29/18 10:00 05/29/18 11:54 05/29/18 12:00 Temperature 100.1 F H Pulse Rate 111 H 109 H Respiratory Rate 26 H 25 H 25 H Blood Pressure 95/44 L Pulse Oximetry 100 99 99 05/29/18 14:00 05/29/18 15:09 05/29/18 16:00 Temperature 100.2 F H Pulse Rate 106 H 108 H 107 H Respiratory Rate 24 24 Blood Pressure 96/43 L Pulse Oximetry 100 100 05/29/18 17:00 05/29/18 18:00 05/29/18 19:00 Temperature 101.7 F H Pulse Rate 107 H 109 H 109 H Respiratory Rate 22 24 24 Blood Pressure 98/48 L 95/43 L 94/44 L Pulse Oximetry 100 100 100 05/29/18 20:00 05/29/18 21:00 05/29/18 21:27 Temperature Pulse Rate 109 H 110 H 110 H Respiratory Rate 26 H 25 H 24 Blood Pressure 96/47 L 96/45 L Pulse Oximetry 100 100 100 05/29/18 22:00 05/29/18 23:00 05/29/18 23:20 Temperature 98.5 F Pulse Rate 111 H 105 H Respiratory Rate 25 H 21 23 Blood Pressure 99/45 L 96/45 L Pulse Oximetry 100 100 100 05/30/18 00:00 05/30/18 01:00 05/30/18 01:16 Temperature Pulse Rate 102 H 101 H 99 H Respiratory Rate 23 21 Blood Pressure 95/44 L 108/51 L Pulse Oximetry 100 100 05/30/18 02:00 05/30/18 03:00 05/30/18 03:18 Temperature Pulse Rate 99 H 100 H 101 H Respiratory Rate 21 20 24 Blood Pressure 94/42 L 96/42 L 122/65 Pulse Oximetry 100 100 100 05/30/18 03:30 05/30/18 03:46 05/30/18 04:00 Temperature Pulse Rate 100 H 101 H 104 H Respiratory Rate 25 H 21 26 H Blood Pressure 123/76 123/67 129/78 Pulse Oximetry 100 100 100 05/30/18 04:32 05/30/18 06:00 05/30/18 07:38 Temperature Pulse Rate 104 H Respiratory Rate 22 23 Blood Pressure Pulse Oximetry 100 100 Intake & Output 05/29/18 05/30/18 05/30/18 18:59 06:59 18:59 Intake Total 849 / 849 856 / 856 Output Total 450 / 450 375 / 375 Balance 399 / 399 481 / 481 Weight 54 kg Intake: IV 151 / 151 100 / 100 Cerebyx Inj 50 MGPE In NS Inj 51 / 51 50 ML @ 208 mls/hr IV.SIG Q8HR ALPHONSE Rx#:[id number] Keppra 1000 mg/100 mL Premix 100 / 100 100 / 100 100 ML @ 400 mls/hr IV.SIG Q12H ALPHONSE Rx#:[id number] Tube Feeding 698 / 698 756 / 756 Output: Urine Amount (Catheter) 450 / 450 375 / 375 Straight 450 / 450 375 / 375 Result Diagrams: 05/29/18 05:48 05/29/18 05:48 Objective Remarks: GENERAL: Frail elderly cachectic male, lying in bed, intubated, sedated, critically ill HEENT: Normocephalic. Atraumatic. Pupils equal, round, reactive, conjugate. Mucous membranes are moist. Evidence of temporal wasting. NECK: Trachea is midline. There is no JVD. CHEST: Intubated with 7.5 ET tube. Equal chest rise. CARDIOVASCULAR: Normal rate, regular rhythm. Sinus. ABDOMEN: Soft, scaphoid, nontender, nondistended. No guarding. MUSCULOSKELETAL: Pulses 2+. No peripheral edema. NEUROLOGICAL: Remains encephalopathic, orally intubated on mechanical ventilation. Tremors noted in right upper extremity. Not following commands. Assessment and Plan - Assessment and Plan Plan: Assessment: 72-year-old male with alcohol dependence and alcohol withdrawal syndrome combined with known seizure disorder and apparently noncompliant with home seizure medications including Dilantin. continue etoh withdraw therapies. MRI today. unable to extubate due to mental status. Plan by systems: Neurologic: Alcohol dependence Alcohol withdrawal Seizure disorder with active seizures- improving. Medication noncompliance Acute combined toxic and metabolic encephalopathy- resolving. Frequent neurochecks Avoid long-acting sedatives currently off all sedation. Fosphenytoin decreased to 50 mg IV every 8 hours on 05/27 Dilantin level EEG 05/26: negative for ictal activity. generalized slowing. Repeat EEG ordered on 05/29 in view of tremors noted in right upper extremity. Neurology consult requested [facility] protocol start weaning valium. IV thiamine and multivitamins Head CT negative for acute disease 05/25. MRI results noted. Respiratory: Acute hypoxic and hypercarbic respiratory failure Vent bundle Head of bed elevated Nebs daily SBTs. cannot extubate due to mental status. Wean FiO2 for goal SPO2 greater than 90% Cardiovascular: Continue telemetry Maintenance IV fluids Renal: urinary retention - no indication for tubbs. straight cath q6h. -- Strict I/Os FEN/GI: Alcoholic cirrhosis Acute protein calorie malnutritionsevere Severe hypokalemia- resolving. Acute intravascular volume depletion- resolving. Hyponatremia- resolved Dehydration- resolving. ICU electrolyte protocol tube feeds: Jevity at goal rate of 60 ml/Hr nutrition consult and following. Maintenance IV fluids Daily BMP Heme/ID: No infectious etiology suspected this time Daily CBC Endocrine: Hyperglycemia of critical illness -- SSI Prophylaxis: GI Prophylaxis Pepcid DVT Prophylaxis -- SCDs Lovenox Lines: Peripheral IVs Tubbs Dispo: remain in ICU. Critically ill. Time spent on critical care excluding procedures 30 minutes
[2018-05-30 11:13] LABS: Anti-Nuclear Antibody Screen Neg (Neg)
[2018-05-30 12:38] LABS: Anion Gap 8 meq/L (5-15); Blood Urea Nitrogen 22 mg/dL (7-18); Calcium 8.5 mg/dL (8.5-10.1); Carbon Dioxide 26.8 meq/L (21.0-32.0); Chloride 107 meq/L (98-107); Glomerular Filtration Rate Greater Than 89 mL/min (>89); Glucose,Random 121 mg/dL (74-106); Magnesium 1.5 mg/dL (1.5-2.5); Phosphorus 2.2 mg/dL (2.5-4.9); Potassium 4.6 meq/L (3.5-5.1); Sodium 142 meq/L (136-145)
--- NOTE | 2018-05-30 13:26 | P.PNPAL ---
Reason for Visit Reason for visit: a. To assist with evaluation and management of symptoms including: confusion, dyspnea b. To assist medical decision maker(s) with: better understanding of current medical conditions; weighing benefits/burdens of medical treatment options; making medical treatment decisions. Subjective Subjective/Interval History: Pt remains unresponsive off sedation. No response to painful stimuli. Possible prolong post-ictal state per neuro. NH pending. Urine cx pending. Family/Friend Interactions: Spoke with primary [facility] Carlos Alberto on phone, he is coming in later but still in [place] and won't be here till evening. - provided medical update - he verbalized understanding - briefly reviewed scenario of ongoing aggressive care vs withdrawal - answered questions to best of my ability - for now Berto plans to visit later and visit throughout , and we will meet Saturday to reevaluate Advance Directives Health Care Surrogate Name and Number: Carlos Alberto Barnett [phone]; Amber Barnett [phone], Objective Vital Signs: Vital Signs 05/29/18 14:00 05/29/18 15:09 05/29/18 16:00 Temperature 100.2 F H Pulse Rate 106 H 108 H 107 H Respiratory Rate 24 24 Blood Pressure 96/43 L Pulse Oximetry 100 100 05/29/18 17:00 05/29/18 18:00 05/29/18 19:00 Temperature 101.7 F H Pulse Rate 107 H 109 H 109 H Respiratory Rate 22 24 24 Blood Pressure 98/48 L 95/43 L 94/44 L Pulse Oximetry 100 100 100 05/29/18 20:00 05/29/18 21:00 05/29/18 21:27 Temperature Pulse Rate 109 H 110 H 110 H Respiratory Rate 26 H 25 H 24 Blood Pressure 96/47 L 96/45 L Pulse Oximetry 100 100 100 05/29/18 22:00 05/29/18 23:00 05/29/18 23:20 Temperature 98.5 F Pulse Rate 111 H 105 H Respiratory Rate 25 H 21 23 Blood Pressure 99/45 L 96/45 L Pulse Oximetry 100 100 100 05/30/18 00:00 05/30/18 01:00 05/30/18 01:16 Temperature Pulse Rate 102 H 101 H 99 H Respiratory Rate 23 21 Blood Pressure 95/44 L 108/51 L Pulse Oximetry 100 100 05/30/18 02:00 05/30/18 03:00 05/30/18 03:18 Temperature Pulse Rate 99 H 100 H 101 H Respiratory Rate 21 20 24 Blood Pressure 94/42 L 96/42 L 122/65 Pulse Oximetry 100 100 100 05/30/18 03:30 05/30/18 03:46 05/30/18 04:00 Temperature Pulse Rate 100 H 101 H 104 H Respiratory Rate 25 H 21 26 H Blood Pressure 123/76 123/67 129/78 Pulse Oximetry 100 100 100 05/30/18 04:32 05/30/18 05:00 05/30/18 06:00 Temperature Pulse Rate 102 H 102 H Respiratory Rate 22 22 20 Blood Pressure 123/65 120/64 Pulse Oximetry 100 100 100 05/30/18 07:00 05/30/18 07:38 05/30/18 08:00 Temperature Pulse Rate 101 H 101 H Respiratory Rate 22 23 16 Blood Pressure 113/60 123/76 Pulse Oximetry 100 100 100 05/30/18 09:00 05/30/18 10:00 05/30/18 11:00 Temperature Pulse Rate 101 H 105 H 109 H Respiratory Rate 25 H 27 H 29 H Blood Pressure 135/75 134/74 133/73 Pulse Oximetry 99 100 99 05/30/18 12:00 05/30/18 12:13 Temperature Pulse Rate 113 H Respiratory Rate 26 H 26 H Blood Pressure 126/84 Pulse Oximetry 98 99 Intake & Output 05/29/18 05/30/18 05/30/18 18:59 06:59 18:59 Intake Total 849 / 849 856 / 856 Output Total 450 / 450 375 / 375 Balance 399 / 399 481 / 481 Weight 54 kg Intake: IV 151 / 151 100 / 100 Cerebyx Inj 50 MGPE In NS Inj 51 / 51 50 ML @ 208 mls/hr IV.SIG Q8HR ALPHONSE Rx#:[id number] Keppra 1000 mg/100 mL Premix 100 / 100 100 / 100 100 ML @ 400 mls/hr IV.SIG Q12H ALPHONSE Rx#:[id number] Tube Feeding 698 / 698 756 / 756 Output: Urine Amount (Catheter) 450 / 450 375 / 375 Straight 450 / 450 375 / 375 Physical Exam: CONSTITUTIONAL/GENERAL: cachectic TUBES/LINES/DRAINS: ET tube, NGT, tubbs, PIV SKIN: No jaundice, rashes, or lesions. No wounds seen anteriorly. Skin temperature appropriate. Not diaphoretic. HEAD: Atraumatic. Normocephalic. EYES: Right pupil reactive, left pupil oval shaped and fixed. eyes glassy. Fundi not examined. ENT: Nose without bleeding or purulent drainage. Throat exam limited by ET tube. NECK: Trachea midline. CARDIOVASCULAR: tachycardic, irr HR, no gallops, or rubs. RESPIRATORY/CHEST: Symmetric, unlabored respirations. Clear to auscultation. Breath sounds equal bilaterally. No wheezes, rales, or rhonchi. GASTROINTESTINAL: Abdomen soft, non-tender, nondistended. No hepato-splenomegaly , or palpable masses. No guarding. Bowel sounds present. GENITOURINARY: Without palpable bladder distension. Tubbs catheter in place. MUSCULOSKELETAL: Extremities without clubbing, cyanosis, or edema NEUROLOGICAL: unresponsive; + tremors/fasciculations PSYCHIATRIC: unable to assess 2/2 mental status Diagnostic Tests Laboratory: Laboratory Results - last 72 hr 05/27/18 05/28/18 05/28/18 17:20 00:30 05:48 WBC RBC Hgb Hct MCV MCH MCHC RDW Plt Count MPV Sodium Potassium Chloride Carbon Dioxide Anion Gap BUN Creatinine Estimated GFR POC Glucose 162 H 246 H 261 H Random Glucose Calcium Phosphorus Magnesium Ammonia Vitamin B12 TSH Thyroxine (T4) Urine Color Urine Clarity Urine pH Ur Specific Guston Urine Protein Urine Glucose (UA) Urine Ketones Urine Occult Blood Urine Nitrate Urine Bilirubin Urine Urobilinogen Ur Leukocyte Esterase Urine RBC Urine WBC Urine WBC Clumps Ur Squamous Epith Cells Urine Bacteria Micro UA Comment Urine Culture Comments Phenytoin JAMAAL Screen RPR 05/28/18 05/28/18 05/28/18 06:07 06:07 12:32 WBC 10.4 RBC 2.13 L Hgb 7.7 L Hct 22.8 L MCV 107.0 H MCH 36.1 H MCHC 33.7 RDW 15.5 Plt Count 278 MPV 7.2 Sodium 140 Potassium 3.6 Chloride 106 Carbon Dioxide 23.2 Anion Gap 11 BUN 14 Creatinine 0.82 Estimated GFR Greater than 89 POC Glucose 223 H Random Glucose 206 H Calcium 7.7 L Phosphorus 2.8 Magnesium 1.4 L Ammonia Vitamin B12 TSH Thyroxine (T4) Urine Color Urine Clarity Urine pH Ur Specific Guston Urine Protein Urine Glucose (UA) Urine Ketones Urine Occult Blood Urine Nitrate Urine Bilirubin Urine Urobilinogen Ur Leukocyte Esterase Urine RBC Urine WBC Urine WBC Clumps Ur Squamous Epith Cells Urine Bacteria Micro UA Comment Urine Culture Comments Phenytoin 26.3 H JAMAAL Screen RPR 05/28/18 05/29/18 05/29/18 18:05 00:46 05:48 WBC 15.3 H RBC 2.51 L Hgb 8.5 L Hct 25.6 L MCV 102.0 H D MCH 33.8 MCHC 33.1 RDW 15.8 Plt Count 351 MPV 7.4 Sodium Potassium Chloride Carbon Dioxide Anion Gap BUN Creatinine Estimated GFR POC Glucose 154 H 223 H Random Glucose Calcium Phosphorus Magnesium Ammonia Vitamin B12 TSH Thyroxine (T4) Urine Color Urine Clarity Urine pH Ur Specific Guston Urine Protein Urine Glucose (UA) Urine Ketones Urine Occult Blood Urine Nitrate Urine Bilirubin Urine Urobilinogen Ur Leukocyte Esterase Urine RBC Urine WBC Urine WBC Clumps Ur Squamous Epith Cells Urine Bacteria Micro UA Comment Urine Culture Comments Phenytoin JAMAAL Screen RPR 05/29/18 05/29/18 05/29/18 05:48 12:23 12:57 WBC RBC Hgb Hct MCV MCH MCHC RDW Plt Count MPV Sodium 142 Potassium 4.3 Chloride 107 Carbon Dioxide 26.6 Anion Gap 8 BUN 21 H Creatinine 0.79 Estimated GFR Greater than 89 POC Glucose 235 H Random Glucose 113 H Calcium 8.2 L Phosphorus 2.2 L Magnesium 1.5 Ammonia Vitamin B12 658 TSH 0.298 L Thyroxine (T4) 4.8 Urine Color Urine Clarity Urine pH Ur Specific Guston Urine Protein Urine Glucose (UA) Urine Ketones Urine Occult Blood Urine Nitrate Urine Bilirubin Urine Urobilinogen Ur Leukocyte Esterase Urine RBC Urine WBC Urine WBC Clumps Ur Squamous Epith Cells Urine Bacteria Micro UA Comment Urine Culture Comments Phenytoin 20.5 H JAMAAL Screen RPR 05/29/18 05/29/18 05/29/18 12:57 13:45 17:10 WBC RBC Hgb Hct MCV MCH MCHC RDW Plt Count MPV Sodium Potassium Chloride Carbon Dioxide Anion Gap BUN Creatinine Estimated GFR POC Glucose 172 H Random Glucose Calcium Phosphorus Magnesium Ammonia Vitamin B12 TSH Thyroxine (T4) Urine Color Betsey Urine Clarity Cloudy H Urine pH 6.0 Ur Specific Guston 1.017 Urine Protein 100 H Urine Glucose (UA) 50 Urine Ketones Negative Urine Occult Blood Moderate H Urine Nitrate Negative Urine Bilirubin Negative Urine Urobilinogen 4 or greater Ur Leukocyte Esterase Large H Urine RBC 4 H Urine WBC Urine WBC Clumps Occasional H Ur Squamous Epith Cells 1 Urine Bacteria Many H Micro UA Comment Cath-culture ind Urine Culture Comments Cath-cult indicated Phenytoin JAMAAL Screen Neg RPR Nonreactive 05/30/18 05/30/18 05/30/18 11:54 11:54 12:27 WBC RBC Hgb Hct MCV MCH MCHC RDW Plt Count MPV Sodium 142 Potassium 4.6 Chloride 107 Carbon Dioxide 26.8 Anion Gap 8 BUN 22 H Creatinine 0.72 Estimated GFR Greater than 89 POC Glucose 129 H Random Glucose 121 H Calcium 8.5 Phosphorus 2.2 L Magnesium 1.5 Ammonia 40 H Vitamin B12 TSH Thyroxine (T4) Urine Color Urine Clarity Urine pH Ur Specific Guston Urine Protein Urine Glucose (UA) Urine Ketones Urine Occult Blood Urine Nitrate Urine Bilirubin Urine Urobilinogen Ur Leukocyte Esterase Urine RBC Urine WBC Urine WBC Clumps Ur Squamous Epith Cells Urine Bacteria Micro UA Comment Urine Culture Comments Phenytoin JAMAAL Screen RPR Result Diagrams: 05/30/18 13:05 05/30/18 11:54 Imaging: ITS Impressions Chest X-Ray 05/25/18 15:22 CONCLUSION: No acute cardiopulmonary disease. Head CT 05/25/18 15:22 CONCLUSION: Chronic small vessel ischemic and atrophic changes. Head MRI 05/27/18 00:00 CONCLUSION: 1. Atrophy, white matter disease and remote left temporal infarct with encephalomalacia. 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 Has had multiple business none of which lasted 2/2 his drinking. . Has 10 kids. Originally from [place], grew up in [place], has been in [place] for 40 y. Lives with one of his daughters. Some of his children are local. Spiritual: [employer]ian non-mormon, daughter requests hair sample matcher visit Legal: Pt is not capacitated to make medical decisions. It is unclear if he will regain capacity. He has previously designated son Carlos Alberto Barnett as primary HCS and daughter Amber as secondary. Ethical issues impacting care: none identified Important Contacts: Carlos Alberto Barnett, son/primary HCS: [phone] Amber Barnett, daughter/alternate HCS: [phone] or [phone] Prognosis: 72 yo male with seizure disorder since head injury 5 y ago, noncompliance with seizure meds, 50 year hx drinking up to or more than a gallon of wine daily admitted 05/25 after having seizure like activity, intubated in the field. EEG showing encephalopathy. He appears cachectic and malnourished. It is unclear if his encephalopathy will improve. His poor nutrition status makes full recovery unlikely. He is quite likely to continue having complications such as seizures d/t noncompliance, episodes of withdrawal, falls. He will likely continue to decline. Code Status: Alternative Code (intubation only) Plan: - LEGAL DECISON MAKER - [facility] completed 02/13/17 Carlos Alberto BarnettAlyma secondary - CODE STATUS- alternate code; intubation only. - GOALS - Primary [facility] Carlos Alberto expressing aggressive goals short of alt code no CPR/shocks/ACLS drugs. He said "if the lord takes him, the lord takes him," but he feels his father can "come back from this, this time." Carlos Alberto is en route to [place] to visit his father this evening and will stay in the area throughout weekend, and we will meet Saturday to reevaluate. Amber secondary [facility] is in touch with other siblings and previously communicated less aggressive goals, "his casket is picked out." - SYMPTOMS - * dyspnea - intubated in field, now on mech vent. failed spontaneous breathing trials 2/2 agitation. Has PRN and scheduled duonebs. * confusion - multifactorial, long hx etoh abuse, seizure disorder, head injury. ?withdrawal vs seizures vs both? EEG 05/26 showing encephalopathy, no seizure activity. sedation off 3 days but pt not responsive. NH elevated 40, ? component hepatic encephalopathy? TSH 0.298L. all sedation d/c'd inc valium. Neurology following, poss prolonged post-ictal state and recommending hold all sedation, continue keppra. - [facility] Carlos Alberto coming to this evening. - meeting planned for Saturday 06/02 - d/w RN - Palliative care will continue to follow during hospital course as condition evolves, to assist patient/decision-maker with understanding of medical conditions, weighing benefits/burdens of treatment options, for clarification of goals of treatment. Additionally will assist with any symptoms of palliative concern Attestation Attestation: To help prompt me to consider important information that might be impacting today's encounter and assessment, information from prior notes written by myself or my colleagues may have been "brought forward" into today's note. My signature on this note, however, is an attestation that I personally performed the exam, history, and/or decision-making noted today, and, unless otherwise indicated, the interactions with patient, family, and staff as well as the review of records all occurred today. I also attest that the listed assessment and stated plan reflect my best clinical judgment today based on the combination of historical information, prior notes, and today's exam/ interactions. When time spent is documented, it refers only to time spent today by the signer, or if indicated, combined time spent today by collaborating physician/nurse practitioner.
--- NOTE | 2018-05-30 13:31 | P.DIET ---
Nutritional Evaluation Type of nutrition evaluation: follow-up Nutrition consult regarding: Tube Feeding ([facility] for Tube Feeding) Objective - Diagnosis Unresponsive, Breakthrough Seizures - Objective % IBW: 69 (TFF=123#) Body Weight Used for Calculations: IBW (75.5kg) Energy Needs - Lower Range (kCal/kg): 25 Energy Needs - Upper Range (kCal/kg): 30 Lower Limit kCal/kg (kCals): 1,888 Upper Limit kCal/kg (kCals): 2,265 Lower Limit Protein Factor (Grams per Kg): 1.2 Upper Limit Protein Factor (Grams per Kg): 1.5 Lower Protein Needs (Protein): 91 Upper Protein Needs (Protein): 113 Dietitian Reviewed in Medical Record: Curent medications, Intake & Output, Labs , Tube feeding Diet Order: TF Only Objective Comments: Meds: Thiamine Pt was on Dilantin at home, not currently on it Feeding - Current Tube Feeding Tube Feeding Product: Jevity 1.5 Tube Feeding Method: Pump Tube Feeding Rate: 60 Current kCals Provided by Tube Feedin,160 Current Protein Provided by Tube Feeding (gPRO): 92 Current Free H2O Provided (m/l): 1,094 Assessment Assessment: Pt continues to be at nutritional risk r/t current clinical status. Pt intubated, TF Jevity 1.5 is at goal rate of 60mls/hr and pt is tolerating it well. Pt on Dilantin at home but is not currently on it. Reviewed MD notes, Labs , wts. Will continue to monitor TF, clinical course. Recommendations: 1. Continue Jevity 1.5 @ 60mls/hr. Dietitian to Monitor: Lab values, Electrolytes, Intake & Output, Tube feeding tolerance, Weight change, Medical course
[2018-05-30 13:38] LABS: Hematocrit 24.1 % (39.0-51.0); Hemoglobin 8.7 gm/dL (13.0-17.0); Mean Corpuscular HGB Conc 35.9 % (32.0-36.0); Mean Corpuscular Hemoglobin 36.5 pg (27.0-34.0); Mean Corpuscular Volume 101.6 fL (80.0-100.0); Mean Platelet Volume 7.8 fL (7.0-11.0); Platelet Count 324 th/mm3 (150-450); Red Blood Count 2.37 mil/mm3 (4.50-5.90); Red Cell Distribution Width 16.2 % (11.6-17.2); White Blood Count 11.3 th/mm3 (4.0-11.0)
[2018-05-30] MEDS: Enoxaparin Inj 40 MG/0.4 ML Syringe SQ SCH (20:44)
[2018-05-30] MEDS: Metoprolol Inj 5 MG/5 ML Vial IV.PUSH PRN (23:42)
[2018-05-31] MEDS: Oral Hygiene Kit OROPHARYNG SCH ×4 (02:23→17:50)
[2018-05-31] MEDS: Insulin NovoLIN Regular Correctional Sugar Inj SQ SCH ×4 (02:23→20:02)
[2018-05-31] MEDS: Chlorhexidine 0.12% Oral Kit 15 ML UDC OROPHARYNG SCH ×2 (08:58→20:54)
[2018-05-31] MEDS: Senna/Docusate Sodium 8.6/50 MG Tablet PO SCH ×2 (08:59→21:13)
[2018-05-31] MEDS: Famotidine PF Inj 20 MG/2 ML Vial IV.PUSH SCH ×2 (08:59→20:01)
[2018-05-31 10:26] LABS: Hematocrit 25.6 % (39.0-51.0); Hemoglobin 8.5 gm/dL (13.0-17.0); Mean Corpuscular HGB Conc 33.2 % (32.0-36.0); Mean Corpuscular Hemoglobin 34.1 pg (27.0-34.0); Mean Corpuscular Volume 102.5 fL (80.0-100.0); Mean Platelet Volume 7.6 fL (7.0-11.0); Platelet Count 315 th/mm3 (150-450); Red Cell Distribution Width 17.4 % (11.6-17.2); White Blood Count 11.4 th/mm3 (4.0-11.0)
[2018-05-31 10:40] LABS: Anion Gap 10 meq/L (5-15); Blood Urea Nitrogen 23 mg/dL (7-18); Calcium 8.4 mg/dL (8.5-10.1); Carbon Dioxide 27.4 meq/L (21.0-32.0); Chloride 106 meq/L (98-107); Glomerular Filtration Rate Greater Than 89 mL/min (>89); Glucose,Random 192 mg/dL (74-106); Magnesium 1.6 mg/dL (1.5-2.5); Potassium 3.8 meq/L (3.5-5.1); Sodium 143 meq/L (136-145)
[2018-05-31] MEDS: levETIRAcetam 1000mg/100mL Inj 100 ML IV.SIG SCH ×2 (12:05)
[2018-05-31] MEDS: Potassium Phosphate 500 MG Soluble Tablet PO PRN ×2 (12:08→17:47)
--- NOTE | 2018-05-31 13:11 | P.PNCC ---
Subjective Subjective Remarks/Hospital Course: Hospital Course: This is a 72-year-old male with a history of alcoholic cirrhosis and seizure disorder who presents with ongoing active grand mal seizures. He was altered in the field and unable to participate airway and was intubated in the field. No additional information is available from the patient. In the emergency department he was hypotensive requiring IV fluid boluses. Laboratory evidence is remarkable for an undetectable phenytoin level in a patient on chronic Dilantin therapy. Review of systems is unavailable due to the clinical condition of the patient. subjective: 05/26: EEG without ictal activity. phenytoin level now therapeutic. patient wakes and follows commands. will wean mechanical ventilation. however, etoh withdraw persists, and CAM+, so may be very difficult to extubate successfully. 05/27: no improvement in mental status. awakens and moves all extremities but does not follow commands. dilantin level slightly elevated this AM. will hold next dose and decrease future doses. ordered MRI to eval for ischemia. Son is the medical decision-maker and wants aggressive goals. daughter is "alternate" [id number] and was asking about hospice. 8/1: Remains sedated, orally intubated on mechanical ventilation. 8/2: Remains encephalopathic, sedated, orally intubated on mechanical ventilation. Tremors in right upper extremity. 8/3: Remains encephalopathic, orally intubated on mechanical ventilation. Neuro consult noted. 8/4: Remains encephalopathic, orally intubated on mechanical ventilation. Tolerating tube feeds. Objective Vital Signs / I&O: Vital Signs 05/30/18 14:00 05/30/18 15:00 05/30/18 16:00 Temperature Pulse Rate 114 H 114 H 111 H Respiratory Rate 25 H 26 H 24 Blood Pressure 136/73 138/76 125/71 Pulse Oximetry 99 99 100 05/30/18 16:46 05/30/18 17:00 05/30/18 18:00 Temperature Pulse Rate 111 H 113 H Respiratory Rate 15 23 24 Blood Pressure 128/74 132/75 Pulse Oximetry 99 99 99 05/30/18 19:00 05/30/18 20:00 05/30/18 20:29 Temperature Pulse Rate 115 H 117 H Respiratory Rate 26 H 26 H 22 Blood Pressure 129/71 129/72 Pulse Oximetry 98 98 98 05/30/18 21:00 05/30/18 22:00 05/30/18 22:56 Temperature Pulse Rate 123 H 119 H Respiratory Rate 29 H 30 H 25 H Blood Pressure 129/86 131/77 Pulse Oximetry 100 97 97 05/30/18 23:00 05/30/18 23:01 05/31/18 00:00 Temperature Pulse Rate 120 H 121 H 102 H Respiratory Rate 28 H 29 H 19 Blood Pressure 142/65 H 116/67 Pulse Oximetry 98 98 100 05/31/18 01:00 05/31/18 01:18 05/31/18 02:00 Temperature Pulse Rate 106 H 109 H Respiratory Rate 25 H 20 26 H Blood Pressure 121/70 117/67 Pulse Oximetry 98 98 99 05/31/18 03:00 05/31/18 04:00 05/31/18 04:08 Temperature 101.7 F H Pulse Rate 110 H 109 H Respiratory Rate 25 H 26 H 24 Blood Pressure 119/70 125/72 Pulse Oximetry 98 97 98 05/31/18 05:00 05/31/18 06:00 05/31/18 07:00 Temperature 100.3 F H Pulse Rate 106 H 108 H 105 H Respiratory Rate 28 H 27 H 29 H Blood Pressure 113/67 124/71 121/68 Pulse Oximetry 98 99 100 05/31/18 08:00 05/31/18 09:00 05/31/18 10:00 Temperature 98.4 F Pulse Rate 104 H 107 H Respiratory Rate 27 H Blood Pressure 123/65 Pulse Oximetry 100 99 05/31/18 11:39 Temperature Pulse Rate Respiratory Rate 20 Blood Pressure Pulse Oximetry 100 Intake & Output 05/30/18 05/31/18 05/31/18 18:59 06:59 18:59 Intake Total 880 / 880 976 / 976 Output Total 180 / 180 100 / 100 Balance 700 / 700 876 / 876 Intake: IV 0 / 0 100 / 100 Keppra 1000 mg/100 mL Premix 0 / 0 100 / 100 100 ML @ 400 mls/hr IV.SIG Q12H [facility] Rx#:[id number] Tube Feeding 880 / 880 636 / 636 Water Bolus Amount 240 / 240 Output: Urine Amount (Catheter) 180 / 180 100 / 100 Straight 180 / 180 100 / 100 Other: # Voids 3 Date of Last Bowel Movement 05/31/18 05/31/18 # Bowel Movements 3 2 Result Diagrams: 05/31/18 09:08 05/31/18 09:08 Imaging: Chest X-Ray 05/25/18 15:22 CONCLUSION: No acute cardiopulmonary disease. Head CT 05/25/18 15:22 CONCLUSION: Chronic small vessel ischemic and atrophic changes. Head MRI 05/27/18 00:00 CONCLUSION: 1. Atrophy, white matter disease and remote left temporal infarct with encephalomalacia. Objective Remarks: GENERAL: Frail elderly cachectic male, lying in bed, intubated, sedated, critically ill HEENT: Normocephalic. Atraumatic. Pupils equal, round, reactive, conjugate. Mucous membranes are moist. Evidence of temporal wasting. NECK: Trachea is midline. There is no JVD. CHEST: Intubated with 7.5 ET tube. Equal chest rise. CARDIOVASCULAR: Normal rate, regular rhythm. Sinus. ABDOMEN: Soft, scaphoid, nontender, nondistended. No guarding. MUSCULOSKELETAL: Pulses 2+. No peripheral edema. NEUROLOGICAL: Remains encephalopathic, orally intubated on mechanical ventilation. Tremors noted in right upper extremity. Not following commands. Assessment and Plan - Assessment and Plan Plan: Assessment: 72-year-old male with alcohol dependence and alcohol withdrawal syndrome combined with known seizure disorder and apparently noncompliant with home seizure medications including Dilantin. continue etoh withdraw therapies. MRI today. unable to extubate due to mental status. Plan by systems: Neurologic: Alcohol dependence Alcohol withdrawal Seizure disorder with active seizures- improving. Medication noncompliance Acute combined toxic and metabolic encephalopathy- resolving. Frequent neurochecks Avoid long-acting sedatives currently off all sedation. Fosphenytoin decreased to 50 mg IV every 8 hours on 05/27 Dilantin level EEG 05/26: negative for ictal activity. generalized slowing. Repeat EEG ordered on 05/29 in view of tremors noted in right upper extremity. Neurology consult requested [facility] protocol start weaning valium. IV thiamine and multivitamins Head CT negative for acute disease 05/25. MRI results noted. Respiratory: Acute hypoxic and hypercarbic respiratory failure Vent bundle Head of bed elevated Nebs daily SBTs. cannot extubate due to mental status. Wean FiO2 for goal SPO2 greater than 90% Cardiovascular: Continue telemetry Maintenance IV fluids Renal: urinary retention - no indication for tubbs. straight cath q6h. -- Strict I/Os FEN/GI: Alcoholic cirrhosis Acute protein calorie malnutritionsevere Severe hypokalemia- resolving. Acute intravascular volume depletion- resolving. Hyponatremia- resolved Dehydration- resolving. ICU electrolyte protocol tube feeds: Jevity at goal rate of 60 ml/Hr nutrition consult and following. Maintenance IV fluids Daily BMP Heme/ID: No infectious etiology suspected this time Daily CBC Endocrine: Hyperglycemia of critical illness -- SSI Prophylaxis: GI Prophylaxis Pepcid DVT Prophylaxis -- SCDs Lovenox Lines: Peripheral IVs Tubbs Dispo: remain in ICU. Critically ill. Time spent on critical care excluding procedures 30 minutes
[2018-05-31] MEDS: Enoxaparin Inj 40 MG/0.4 ML Syringe SQ SCH (19:39)
[2018-05-31] MEDS: Metoprolol Inj 5 MG/5 ML Vial IV.PUSH PRN (19:40)
[2018-06-01] MEDS: levETIRAcetam 1000mg/100mL Inj 100 ML IV.SIG SCH ×2 (00:08→12:51)
[2018-06-01] MEDS: Oral Hygiene Kit OROPHARYNG SCH ×4 (00:10→17:34)
[2018-06-01] MEDS: Insulin NovoLIN Regular Correctional Sugar Inj SQ SCH ×4 (00:20→17:34)
[2018-06-01 06:18] LABS: Hematocrit 23.4 % (39.0-51.0); Hemoglobin 7.7 gm/dL (13.0-17.0); Mean Corpuscular HGB Conc 32.9 % (32.0-36.0); Mean Corpuscular Hemoglobin 33.9 pg (27.0-34.0); Mean Corpuscular Volume 102.8 fL (80.0-100.0); Mean Platelet Volume 8.7 fL (7.0-11.0); Platelet Count 324 th/mm3 (150-450); Red Blood Count 2.28 mil/mm3 (4.50-5.90); Red Cell Distribution Width 18.1 % (11.6-17.2)
[2018-06-01 06:48] LABS: Anion Gap 11 meq/L (5-15); Blood Urea Nitrogen 27 mg/dL (7-18); Calcium 8.2 mg/dL (8.5-10.1); Carbon Dioxide 26.9 meq/L (21.0-32.0); Chloride 105 meq/L (98-107); Glomerular Filtration Rate Greater Than 89 mL/min (>89); Glucose,Random 135 mg/dL (74-106); Magnesium 1.6 mg/dL (1.5-2.5); Potassium 3.9 meq/L (3.5-5.1); Sodium 143 meq/L (136-145)
[2018-06-01] MEDS: Chlorhexidine 0.12% Oral Kit 15 ML UDC OROPHARYNG SCH ×2 (09:31→19:42)
[2018-06-01] MEDS: Senna/Docusate Sodium 8.6/50 MG Tablet PO SCH ×2 (09:31→20:09)
[2018-06-01] MEDS: Famotidine PF Inj 20 MG/2 ML Vial IV.PUSH SCH ×2 (09:31→20:09)
--- NOTE | 2018-06-01 10:08 | P.PNCC ---
Subjective Subjective Remarks/Hospital Course: Hospital Course: This is a 72-year-old male with a history of alcoholic cirrhosis and seizure disorder who presents with ongoing active grand mal seizures. He was altered in the field and unable to participate airway and was intubated in the field. No additional information is available from the patient. In the emergency department he was hypotensive requiring IV fluid boluses. Laboratory evidence is remarkable for an undetectable phenytoin level in a patient on chronic Dilantin therapy. Review of systems is unavailable due to the clinical condition of the patient. subjective: 05/26: EEG without ictal activity. phenytoin level now therapeutic. patient wakes and follows commands. will wean mechanical ventilation. however, etoh withdraw persists, and CAM+, so may be very difficult to extubate successfully. 05/27: no improvement in mental status. awakens and moves all extremities but does not follow commands. dilantin level slightly elevated this AM. will hold next dose and decrease future doses. ordered MRI to eval for ischemia. Son is the medical decision-maker and wants aggressive goals. daughter is "alternate" [id number] and was asking about hospice. 8/1: Remains sedated, orally intubated on mechanical ventilation. 8/2: Remains encephalopathic, sedated, orally intubated on mechanical ventilation. Tremors in right upper extremity. 8/3: Remains encephalopathic, orally intubated on mechanical ventilation. Neuro consult noted. 8/4: Remains encephalopathic, orally intubated on mechanical ventilation. Tolerating tube feeds. 8/5: Remains encephalopathic, orally intubated on mechanical ventilation. Tolerating tube feeds. Not awake enough for extubation. Daily CPAP trials ongoing. Objective Vital Signs / I&O: Vital Signs 05/31/18 11:00 05/31/18 11:39 05/31/18 12:00 Temperature 98.4 F Pulse Rate 109 H 110 H Respiratory Rate 25 H 20 30 H Blood Pressure 133/74 130/78 Pulse Oximetry 100 100 100 05/31/18 13:00 05/31/18 14:00 05/31/18 15:00 Temperature Pulse Rate 112 H 116 H 114 H Respiratory Rate 32 H 29 H 28 H Blood Pressure 123/81 129/70 123/68 Pulse Oximetry 100 100 99 05/31/18 15:26 05/31/18 16:00 05/31/18 17:00 Temperature 98.9 F Pulse Rate 122 H 115 H Respiratory Rate 26 H 32 H 29 H Blood Pressure 113/72 119/66 Pulse Oximetry 100 97 96 05/31/18 18:00 05/31/18 19:00 05/31/18 19:41 Temperature Pulse Rate 118 H 119 H Respiratory Rate 29 H 31 H 30 H Blood Pressure 117/66 121/71 Pulse Oximetry 97 96 95 05/31/18 20:00 05/31/18 20:53 05/31/18 21:00 Temperature 102.9 F H 102.2 F H Pulse Rate 98 H 116 H Respiratory Rate 33 H 27 H Blood Pressure 123/68 121/71 Pulse Oximetry 98 97 05/31/18 22:00 05/31/18 22:02 05/31/18 22:11 Temperature 101.7 F H Pulse Rate 112 H Respiratory Rate 21 27 H Blood Pressure 129/72 Pulse Oximetry 97 97 05/31/18 23:00 06/01/18 00:00 06/01/18 01:00 Temperature 100.8 F H Pulse Rate 107 H 108 H 109 H Respiratory Rate 26 H 26 H 28 H Blood Pressure 107/59 L 110/60 118/66 Pulse Oximetry 99 99 100 06/01/18 01:08 06/01/18 02:00 06/01/18 03:00 Temperature 100.8 F H Pulse Rate 109 H 105 H Respiratory Rate 24 25 H 23 Blood Pressure 114/63 109/59 L Pulse Oximetry 99 99 100 06/01/18 04:00 06/01/18 04:06 06/01/18 06:00 Temperature 100.9 F H Pulse Rate 104 H 101 H Respiratory Rate 27 H 24 Blood Pressure 107/65 Pulse Oximetry 100 100 06/01/18 07:32 Temperature Pulse Rate Respiratory Rate 23 Blood Pressure Pulse Oximetry 100 Intake & Output 05/31/18 06/01/18 06/01/18 18:59 06:59 18:59 Intake Total 988 / 988 1150 / 1150 Output Total 525 / 525 Balance 463 / 463 1150 / 1150 Weight 54.5 kg Intake: IV 100 / 100 100 / 100 Keppra 1000 mg/100 mL Premix 100 / 100 100 / 100 100 ML @ 400 mls/hr IV.SIG Q12H [facility] Rx#:[id number] Tube Feeding 613 / 613 700 / 700 Tube Irrigant 150 / 150 Water Bolus Amount 275 / 275 Other 200 / 200 Output: Urine Amount (Catheter) 475 / 475 Straight 475 / 475 Gastric Drainage 50 / 50 Left Nare 50 / 50 Other: Post Void Residual 183 # Voids 5 # Incontinent Voids 3 3 Date of Last Bowel Movement 05/31/18 06/01/18 # Bowel Movements 2 1 Result Diagrams: 06/01/18 03:55 06/01/18 03:35 Objective Remarks: GENERAL: Frail elderly cachectic male, lying in bed, intubated, sedated, critically ill HEENT: Normocephalic. Atraumatic. Pupils equal, round, reactive, conjugate. Mucous membranes are moist. Evidence of temporal wasting. NECK: Trachea is midline. There is no JVD. CHEST: Intubated with 7.5 ET tube. Equal chest rise. CARDIOVASCULAR: Normal rate, regular rhythm. Sinus. ABDOMEN: Soft, scaphoid, nontender, nondistended. No guarding. MUSCULOSKELETAL: Pulses 2+. No peripheral edema. NEUROLOGICAL: Remains encephalopathic, orally intubated on mechanical ventilation. Tremors noted in right upper extremity. Not following commands. Assessment and Plan - Assessment and Plan Plan: Assessment: 72-year-old male with alcohol dependence and alcohol withdrawal syndrome combined with known seizure disorder and apparently noncompliant with home seizure medications including Dilantin. continue etoh withdraw therapies. MRI today. unable to extubate due to mental status. Plan by systems: Neurologic: Alcohol dependence Alcohol withdrawal Seizure disorder with active seizures- improving. Medication noncompliance Acute combined toxic and metabolic encephalopathy- resolving. Frequent neurochecks Avoid long-acting sedatives currently off all sedation. Fosphenytoin decreased to 50 mg IV every 8 hours on 05/27 Dilantin level EEG 05/26: negative for ictal activity. generalized slowing. Repeat EEG ordered on 05/29 in view of tremors noted in right upper extremity. Neurology consult requested [facility] protocol start weaning valium. IV thiamine and multivitamins Head CT negative for acute disease 05/25. MRI results noted. Respiratory: Acute hypoxic and hypercarbic respiratory failure Vent bundle Head of bed elevated Nebs daily SBTs. cannot extubate due to mental status. Wean FiO2 for goal SPO2 greater than 90% Cardiovascular: Continue telemetry Maintenance IV fluids Renal: urinary retention - no indication for tubbs. straight cath q6h. -- Strict I/Os FEN/GI: Alcoholic cirrhosis Acute protein calorie malnutritionsevere Severe hypokalemia- resolving. Acute intravascular volume depletion- resolving. Hyponatremia- resolved Dehydration- resolving. ICU electrolyte protocol tube feeds: Jevity at goal rate of 60 ml/Hr nutrition consult and following. Maintenance IV fluids Daily BMP Heme/ID: No infectious etiology suspected this time Daily CBC Endocrine: Hyperglycemia of critical illness -- SSI Prophylaxis: GI Prophylaxis Pepcid DVT Prophylaxis -- SCDs Lovenox Lines: Peripheral IVs Tubbs Dispo: remain in ICU. Critically ill. Time spent on critical care excluding procedures 30 minutes
[2018-06-01] MEDS: Enoxaparin Inj 40 MG/0.4 ML Syringe SQ SCH (19:42)
[2018-06-02] MEDS: Oral Hygiene Kit OROPHARYNG SCH ×4 (00:40→20:07)
[2018-06-02] MEDS: Insulin NovoLIN Regular Correctional Sugar Inj SQ SCH ×4 (00:43→18:07)
[2018-06-02] MEDS: levETIRAcetam 1000mg/100mL Inj 100 ML IV.SIG SCH ×2 (00:44→12:14)
--- NOTE | 2018-06-02 09:06 | P.PNNEU ---
Subjective Active Medications: Active Medications Acetaminophen (Tylenol Liq) 650 mg PO Q6H PRN PRN Reason: SEE DOSE INSTRUCTIONS Last Admin: 06/01/18 17:37 Dose: 650 mg Al Hydroxide/Mg Hydroxide (Milk Of Magnesia Liq) 30 ml PO Q12H PRN PRN Reason: Mild Constipation Albuterol (Duoneb Neb (Prn)) 1 ampul NEB Q2HR NEB PRN PRN Reason: WHEEZING Bisacodyl (Dulcolax Supp) 10 mg RECTAL DAILY PRN PRN Reason: SEVERE CONSITIPATION Chlorhexidine Gluconate (Peridex 0.12% Oral Kit) 15 ml OROPHARYNG BID@0800, 2000 [facility] Last Admin: 06/01/18 19:42 Dose: 15 ml Dextrose (D50w Vial) 50 ml IV.PUSH UNSCH PRN PRN Reason: PER HYPOGLYCEMIA PROTOCOL Enoxaparin Sodium (Lovenox Inj) 40 mg SQ Q24H [facility] Last Admin: 06/01/18 19:42 Dose: 40 mg Famotidine (Pepcid Pf Inj) 20 mg IV.PUSH Q12HR [facility] Last Admin: 06/01/18 20:09 Dose: 20 mg Flumazenil (Romazecon Inj) 0.2 mg IV.PUSH Q1M PRN PRN Reason: OVERSEDATION Glucagon (Glucagon Inj) 1 mg OTHER PRN PRN PRN Reason: for Hypoglycemia Protocol Magnesium Sulfate Inj 4 gm/ (Sodium Chloride) 100 mls @ 50 mls/hr IV.SIG UNSCH PRN PRN Reason: For Magnesium 0.9 - 1.1 mg/dL Magnesium Sulfate Inj 2 gm/ (Sodium Chloride) 100 mls @ 50 mls/hr IV.SIG UNSCH PRN PRN Reason: For Magnesium 1.2 - 1.6 mg/dL Last Infusion: 05/26/18 16:41 Dose: Infused Potassium Chloride (Kcl 40 Meq Premix Inj) 40 meq in 100 mls @ 25 mls/hr IV.SIG Q2H PRN PRN Reason: For Potassium 2.8 - 3.2 mEq/L Potassium Chloride (Kcl 40 Meq Premix Inj) 40 meq in 100 mls @ 25 mls/hr IV.SIG UNSCH PRN PRN Reason: For Potassium 3.3 - 3.5 mEq/L Potassium Chloride (Kcl 20 Meq Premix Inj) 20 meq in 100 mls @ 50 mls/hr IV.SIG Q2H PRN PRN Reason: For Potassium 2.8 - 3.2 mEq/L Potassium Phosphate 30 mmol/ (Sodium Chloride) 260 mls @ 42 mls/hr IV.SIG UNSCH PRN PRN Reason: SEE LABEL COMMENTS Sodium Phosphate 30 mmol/ (Sodium Chloride) 260 mls @ 42 mls/hr IV.SIG UNSCH PRN PRN Reason: For Phosphorus < 2.5 mg/dL Last Infusion: 05/27/18 14:58 Dose: Infused Potassium Chloride (Kcl 20 Meq Premix Inj) 20 meq in 100 mls @ 50 mls/hr IV.SIG Q2H PRN PRN Reason: For Potassium 3.3 - 3.5 mEq/L Propofol (Diprivan 1000 Mg/100 Ml Inj) 1,000 mg in 100 mls @ 1.606 mls/hr IV.CONT TITRATE PRN; Protocol PRN Reason: Per Protocol Last Titration: 05/25/18 20:20 Dose: 0 mcg/kg/min, 0 mls/hr Levetiracetam (Keppra 1000 Mg/100 Ml Premix) 100 mls @ 400 mls/hr IV.SIG Q12H [facility] Last Infusion: 06/02/18 02:27 Dose: 0 mls/hr Levofloxacin/Dextrose (Levaquin 750 Mg Premix Inj) 150 mls @ 100 mls/hr IV.SIG Q24H [facility] Last Infusion: 06/01/18 19:10 Dose: 0 mls/hr Insulin Human Regular (Novolin R Correctional Sugar Inj) 0 units SQ Q6HR [facility]; Protocol Last Admin: 06/02/18 05:54 Dose: 4 units Lactulose (Lactulose Liq) 30 ml PO DAILY PRN PRN Reason: SEVERE CONSITIPATION Magnesium Oxide (Mag-Ox) 800 mg PO UNSCH PRN PRN Reason: For Magnesium 1.2 - 1.6 mg/dL Metoprolol Tartrate (Lopressor Inj) 5 mg IV.PUSH Q5M PRN PRN Reason: HR > 120 Last Admin: 05/31/18 19:40 Dose: 5 mg Miscellaneous (Pill Splitter) 1 each OTHER UNSCH PRN PRN Reason: PILL SPLITTER Ondansetron HCl (Zofran Inj) 4 mg IV.PUSH Q6H PRN PRN Reason: NAUSEA OR VOMITING Potassium Bicarb/Potassium Chloride (K-Lyte Cl Eff) 50 meq PO UNSCH PRN PRN Reason: For Potassium 3.3 - 3.5 mEq/L Last Admin: 05/26/18 11:33 Dose: 50 meq Potassium Phosphate (K-Phos Original) 2,000 mg PO Q4H PRN PRN Reason: Phosphorus Less Than 2.5 mg/dL Last Admin: 05/31/18 17:47 Dose: 2,000 mg Potassium Phosphate (K-Phos Original) 2,000 mg PO UNSCH PRN PRN Reason: SEE LABEL COMMENTS Senna/Docusate Sodium (Anupama-Colace) 1 tab PO BID [facility] Last Admin: 06/01/18 20:09 Dose: 1 tab Sennosides (Senokot) 17.2 mg PO Q12H PRN PRN Reason: Moderate Constipation Sodium Chloride (Ns Flush) 2 ml IV.FLUSH BID [facility] Last Admin: 06/01/18 20:09 Dose: 2 ml Sodium Chloride (Ns Flush) 2 ml IV.FLUSH PRN PRN PRN Reason: FLUSH AFTER USING IV ACCESS Last Admin: 06/01/18 00:10 Dose: 2 ml Thiamine HCl (Vitamin B1) 100 mg PO DAILY [facility] Last Admin: 06/01/18 09:31 Dose: 100 mg Allergies/Adverse Reactions: Allergies Allergy/AdvReac Type Severity Reaction Status Date / Time Unable to Assess Allergy Unknown Unconscious Verified 05/25/18 17:12 Physical Exam Vital signs: Vital Signs 06/01/18 10:00 06/01/18 11:00 06/01/18 11:11 Temperature Pulse Rate 98 H 98 H Respiratory Rate 24 28 H 25 H Blood Pressure 107/62 108/61 Pulse Oximetry 100 100 100 06/01/18 12:00 06/01/18 13:00 06/01/18 14:00 Temperature 99.2 F Pulse Rate 100 H 102 H 103 H Respiratory Rate 27 H 36 H 21 Blood Pressure 109/61 120/65 115/65 Pulse Oximetry 100 100 100 06/01/18 15:00 06/01/18 15:23 06/01/18 16:00 Temperature 101.5 F H Pulse Rate 101 H 104 H Respiratory Rate 26 H 22 27 H Blood Pressure 112/60 110/56 L Pulse Oximetry 100 100 100 06/01/18 17:00 06/01/18 18:00 06/01/18 19:00 Temperature 98.2 F Pulse Rate 109 H 109 H 111 H Respiratory Rate 25 H 23 24 Blood Pressure 122/65 102/58 L 108/62 Pulse Oximetry 100 100 99 06/01/18 20:00 06/01/18 21:00 06/01/18 21:12 Temperature Pulse Rate 105 H 105 H Respiratory Rate 22 24 17 Blood Pressure 95/53 L 101/55 L Pulse Oximetry 99 100 97 06/01/18 22:00 06/01/18 23:00 06/02/18 00:00 Temperature 98.8 F Pulse Rate 107 H 110 H 114 H Respiratory Rate 16 18 24 Blood Pressure 106/55 L 110/60 112/56 L Pulse Oximetry 100 100 99 06/02/18 00:41 06/02/18 01:00 06/02/18 02:00 Temperature Pulse Rate 117 H 119 H Respiratory Rate 23 22 24 Blood Pressure 108/62 114/65 Pulse Oximetry 99 99 96 06/02/18 03:00 06/02/18 04:00 06/02/18 04:35 Temperature 98.9 F Pulse Rate 118 H 118 H Respiratory Rate 24 21 22 Blood Pressure 116/62 111/60 Pulse Oximetry 97 98 98 06/02/18 05:00 06/02/18 06:00 06/02/18 07:40 Temperature Pulse Rate 118 H 116 H Respiratory Rate 22 22 26 H Blood Pressure 114/63 120/68 Pulse Oximetry 98 98 99 Intake & Output 06/01/18 06/02/18 06/02/18 18:59 06:59 18:59 Intake Total 1237 / 1237 890 / 890 Output Total 375 / 375 325 / 325 Balance 862 / 862 565 / 565 Weight 55.5 kg Intake: IV 100 / 100 Keppra 1000 mg/100 mL Premix 100 / 100 100 ML @ 400 mls/hr IV.SIG Q12H [facility] Rx#:[id number] Tube Feeding 762 / 762 690 / 690 Tube Irrigant 200 / 200 100 / 100 Water Bolus Amount 275 / 275 Output: Urine Amount (Catheter) 325 / 325 325 / 325 Straight 325 / 325 325 / 325 Gastric Drainage 50 / 50 Left Nare 50 / 50 Other: # Voids 4 # Incontinent Voids 4 Date of Last Bowel Movement 06/01/18 # Bowel Movements 1 Narrative: much more alert moving r arm and eye open and looks around not follow commands for me - Urinary Catheter Management Indwelling Urethral Catheter Cath placed during this visit: yes, but has since been removed by the nurse Reason for continuing: Not indwelling catheter Insertion date: 05/25/18 Insertion time: 15:00 Removal date: 05/26/18 Removal time: 12:00 Straight Cath placed during this visit: yes Reason for continuing: Not indwelling catheter Insertion date: 06/01/18 Insertion time: 00:00 Objective Laboratory Results - last 24 hr 05/29/18 06/01/18 06/01/18 12:57 12:57 17:07 POC Glucose 168 H 195 H Methylmalonic Acid 0.34 06/02/18 06/02/18 00:38 05:28 POC Glucose 189 H 220 H Methylmalonic Acid Review/Management - Review/Management Plan: imp mri and eeg neg on keppra hold all sedatives could be prolonged postictal will fu saturday see if awakens over next few days no apparent reason why he would not - 06/02/18 much better should do well keppra off vent when able
[2018-06-02] MEDS: Famotidine PF Inj 20 MG/2 ML Vial IV.PUSH SCH ×2 (09:58→20:06)
[2018-06-02] MEDS: Senna/Docusate Sodium 8.6/50 MG Tablet PO SCH ×2 (09:58→20:06)
[2018-06-02] MEDS: Chlorhexidine 0.12% Oral Kit 15 ML UDC OROPHARYNG SCH ×2 (11:49→20:35)
--- NOTE | 2018-06-02 12:32 | P.PNCC ---
Subjective Subjective Remarks/Hospital Course: Hospital Course: This is a 72-year-old male with a history of alcoholic cirrhosis and seizure disorder who presents with ongoing active grand mal seizures. He was altered in the field and unable to participate airway and was intubated in the field. No additional information is available from the patient. In the emergency department he was hypotensive requiring IV fluid boluses. Laboratory evidence is remarkable for an undetectable phenytoin level in a patient on chronic Dilantin therapy. Review of systems is unavailable due to the clinical condition of the patient. subjective: 05/26: EEG without ictal activity. phenytoin level now therapeutic. patient wakes and follows commands. will wean mechanical ventilation. however, etoh withdraw persists, and CAM+, so may be very difficult to extubate successfully. 05/27: no improvement in mental status. awakens and moves all extremities but does not follow commands. dilantin level slightly elevated this AM. will hold next dose and decrease future doses. ordered MRI to eval for ischemia. Son is the medical decision-maker and wants aggressive goals. daughter is "alternate" [id number] and was asking about hospice. 8/1: Remains sedated, orally intubated on mechanical ventilation. 8/2: Remains encephalopathic, sedated, orally intubated on mechanical ventilation. Tremors in right upper extremity. 8/3: Remains encephalopathic, orally intubated on mechanical ventilation. Neuro consult noted. 8/4: Remains encephalopathic, orally intubated on mechanical ventilation. Tolerating tube feeds. 8/5: Remains encephalopathic, orally intubated on mechanical ventilation. Tolerating tube feeds. Not awake enough for extubation. Daily CPAP trials ongoing. 8/6: Remains encephalopathic. Occasionally eye opening noted. Not following commands. Remains orally intubated on mechanical ventilation. Tolerating tube feeds. Objective Vital Signs / I&O: Vital Signs 06/01/18 13:00 06/01/18 14:00 06/01/18 15:00 Temperature Pulse Rate 102 H 103 H 101 H Respiratory Rate 36 H 21 26 H Blood Pressure 120/65 115/65 112/60 Pulse Oximetry 100 100 100 06/01/18 15:23 06/01/18 16:00 06/01/18 17:00 Temperature 101.5 F H Pulse Rate 104 H 109 H Respiratory Rate 22 27 H 25 H Blood Pressure 110/56 L 122/65 Pulse Oximetry 100 100 100 06/01/18 18:00 06/01/18 19:00 06/01/18 20:00 Temperature 98.2 F Pulse Rate 109 H 111 H 105 H Respiratory Rate 23 24 22 Blood Pressure 102/58 L 108/62 95/53 L Pulse Oximetry 100 99 99 06/01/18 21:00 06/01/18 21:12 06/01/18 22:00 Temperature Pulse Rate 105 H 107 H Respiratory Rate 24 17 16 Blood Pressure 101/55 L 106/55 L Pulse Oximetry 100 97 100 06/01/18 23:00 06/02/18 00:00 06/02/18 00:41 Temperature 98.8 F Pulse Rate 110 H 114 H Respiratory Rate 18 24 23 Blood Pressure 110/60 112/56 L Pulse Oximetry 100 99 99 06/02/18 01:00 06/02/18 02:00 06/02/18 03:00 Temperature Pulse Rate 117 H 119 H 118 H Respiratory Rate 22 24 24 Blood Pressure 108/62 114/65 116/62 Pulse Oximetry 99 96 97 06/02/18 04:00 06/02/18 04:35 06/02/18 05:00 Temperature 98.9 F Pulse Rate 118 H 118 H Respiratory Rate 21 22 22 Blood Pressure 111/60 114/63 Pulse Oximetry 98 98 98 06/02/18 06:00 06/02/18 07:40 06/02/18 08:00 Temperature Pulse Rate 116 H 118 H Respiratory Rate 22 26 H 30 H Blood Pressure 120/68 115/57 L Pulse Oximetry 98 99 96 06/02/18 09:00 06/02/18 10:00 06/02/18 11:00 Temperature 99.4 F Pulse Rate 116 H 115 H 116 H Respiratory Rate 24 25 H 27 H Blood Pressure 126/63 118/64 108/64 Pulse Oximetry 96 98 95 06/02/18 12:00 Temperature 101.8 F H Pulse Rate 116 H Respiratory Rate 24 Blood Pressure 115/61 Pulse Oximetry 97 Intake & Output 06/01/18 06/02/18 06/02/18 18:59 06:59 18:59 Intake Total 1237 / 1237 890 / 890 Output Total 375 / 375 325 / 325 Balance 862 / 862 565 / 565 Weight 55.5 kg Intake: IV 100 / 100 Keppra 1000 mg/100 mL Premix 100 / 100 100 ML @ 400 mls/hr IV.SIG Q12H [facility] Rx#:[id number] Tube Feeding 762 / 762 690 / 690 Tube Irrigant 200 / 200 100 / 100 Water Bolus Amount 275 / 275 Output: Urine Amount (Catheter) 325 / 325 325 / 325 Straight 325 / 325 325 / 325 Gastric Drainage 50 / 50 Left Nare 50 / 50 Other: # Voids 4 # Incontinent Voids 4 Date of Last Bowel Movement 06/01/18 # Bowel Movements 1 Result Diagrams: 06/01/18 03:55 06/01/18 03:35 Objective Remarks: GENERAL: Frail elderly cachectic male, lying in bed, intubated, sedated, critically ill HEENT: Normocephalic. Atraumatic. Pupils equal, round, reactive, conjugate. Mucous membranes are moist. Evidence of temporal wasting. NECK: Trachea is midline. There is no JVD. CHEST: Intubated with 7.5 ET tube. Equal chest rise. CARDIOVASCULAR: Normal rate, regular rhythm. Sinus. ABDOMEN: Soft, scaphoid, nontender, nondistended. No guarding. MUSCULOSKELETAL: Pulses 2+. No peripheral edema. NEUROLOGICAL: Remains encephalopathic, orally intubated on mechanical ventilation. Not following commands. Assessment and Plan - Assessment and Plan Plan: Assessment: 72-year-old male with alcohol dependence and alcohol withdrawal syndrome combined with known seizure disorder and apparently noncompliant with home seizure medications including Dilantin. continue etoh withdraw therapies. MRI today. unable to extubate due to mental status. Plan by systems: Neurologic: Alcohol dependence Alcohol withdrawal Seizure disorder with active seizures- improving. Medication noncompliance Acute combined toxic and metabolic encephalopathy- resolving. Frequent neurochecks Avoid long-acting sedatives currently off all sedation. Fosphenytoin decreased to 50 mg IV every 8 hours on 05/27 Dilantin level EEG 05/26: negative for ictal activity. generalized slowing. Repeat EEG ordered on 05/29 in view of tremors noted in right upper extremity. Neurology consult noted. [facility] protocol start weaning valium. IV thiamine and multivitamins Head CT negative for acute disease 05/25. MRI results noted. Respiratory: Acute hypoxic and hypercarbic respiratory failure Vent bundle Head of bed elevated Nebs daily SBTs. cannot extubate due to mental status. Wean FiO2 for goal SPO2 greater than 90% Cardiovascular: Continue telemetry Maintenance IV fluids Renal: urinary retention - no indication for tubbs. straight cath q6h. -- Strict I/Os FEN/GI: Alcoholic cirrhosis Acute protein calorie malnutritionsevere Severe hypokalemia- resolving. Acute intravascular volume depletion- resolving. Hyponatremia- resolved Dehydration- resolving. ICU electrolyte protocol tube feeds: Jevity at goal rate of 60 ml/Hr nutrition consult and following. Maintenance IV fluids Daily BMP Heme/ID: No infectious etiology suspected this time Daily CBC Endocrine: Hyperglycemia of critical illness -- SSI Prophylaxis: GI Prophylaxis Pepcid DVT Prophylaxis -- SCDs Lovenox Lines: Peripheral IVs Tubbs Dispo: remain in ICU. Critically ill. Time spent on critical care excluding procedures 30 minutes
[2018-06-02] MEDS: Magnesium Sulfate Inj 2 GM in Sodium Chlor 0.9% Inj 96 ML IV.SIG PRN (15:26)
--- NOTE | 2018-06-02 15:39 | P.PNPAL ---
Reason for Visit Reason for visit: a. To assist with evaluation and management of symptoms including: confusion, dyspnea b. To assist medical decision maker(s) with: better understanding of current medical conditions; weighing benefits/burdens of medical treatment options; making medical treatment decisions. Subjective Subjective/Interval History: Pt resting in bed, undergoing CPAP trials. Has tolerated CPAP today since this morning. 05/31 tolerated for nearly 7 hours. Off all sedation. 05/30 NH was 40. On keppra. He is opening eyes periodically. Does not follow commands for me but does meaningfully respond to son Carlos Alberto who is at bedside. Carlos Alberto calls his name and pt opens eyes and moves head toward him, tries to smile. Family/Friend Interactions: Meeting in [facility] consult room with son and primary HCS Carlos Alberto: -Palliative care role, purpose, approach -Additional psychosocial history -family understanding of the current medical problems -family understanding of prognosis - poor given pt likely to return to drinking , Carlos Alberto acknowledges this -Current medical treatment options and their benefits/burdens -Likely scenarios comparing ongoing aggressive care with transition to ``comfort -measures only - Carlos Alberto expressed interest in rehab for pt, indicated he would not consent to tracheostomy if pt unable to be extubated - introduced hospice - [facility] was receptive but not ready - CODE STATUS - pt to remain alt code intubation only but Carlos Alberto feels pt would want to be allowed to pass naturally and plans to readdress this when pt off vent; will consider community DNR at that time. -Questions answered to the best of my ability - Palliative care contact information provided Goals are aggressive short of alt code intubation only, no tracheostomy. WHile [facility] Carlos Alberto acknowledges that his father will inevitably return to drinking and is going to continue to decline, Carlos Alberto would like for pt to go to rehab after hospital. Carlos Alberto was receptive to hospice discussion but did not feel pt was ready for this. Advance Directives Health Care Surrogate Name and Number: Carlos Alberto Barnett [phone]; Amber Barnett [phone], Objective Vital Signs: Vital Signs 06/01/18 16:00 06/01/18 17:00 06/01/18 18:00 Temperature 101.5 F H Pulse Rate 104 H 109 H 109 H Respiratory Rate 27 H 25 H 23 Blood Pressure 110/56 L 122/65 102/58 L Pulse Oximetry 100 100 100 06/01/18 19:00 06/01/18 20:00 06/01/18 21:00 Temperature 98.2 F Pulse Rate 111 H 105 H 105 H Respiratory Rate 24 22 24 Blood Pressure 108/62 95/53 L 101/55 L Pulse Oximetry 99 99 100 06/01/18 21:12 06/01/18 22:00 06/01/18 23:00 Temperature 98.8 F Pulse Rate 107 H 110 H Respiratory Rate 17 16 18 Blood Pressure 106/55 L 110/60 Pulse Oximetry 97 100 100 06/02/18 00:00 06/02/18 00:41 06/02/18 01:00 Temperature Pulse Rate 114 H 117 H Respiratory Rate 24 23 22 Blood Pressure 112/56 L 108/62 Pulse Oximetry 99 99 99 06/02/18 02:00 06/02/18 03:00 06/02/18 04:00 Temperature 98.9 F Pulse Rate 119 H 118 H 118 H Respiratory Rate 24 24 21 Blood Pressure 114/65 116/62 111/60 Pulse Oximetry 96 97 98 06/02/18 04:35 06/02/18 05:00 06/02/18 06:00 Temperature Pulse Rate 118 H 116 H Respiratory Rate 22 22 22 Blood Pressure 114/63 120/68 Pulse Oximetry 98 98 98 06/02/18 07:40 06/02/18 08:00 06/02/18 09:00 Temperature Pulse Rate 118 H 116 H Respiratory Rate 26 H 30 H 24 Blood Pressure 115/57 L 126/63 Pulse Oximetry 99 96 96 06/02/18 10:00 06/02/18 11:00 06/02/18 11:40 Temperature 99.4 F Pulse Rate 115 H 116 H Respiratory Rate 25 H 27 H 23 Blood Pressure 118/64 108/64 Pulse Oximetry 98 95 95 06/02/18 12:00 06/02/18 13:00 06/02/18 14:00 Temperature 101.8 F H Pulse Rate 116 H 117 H 109 H Respiratory Rate 28 H 28 H Blood Pressure 115/61 113/65 Pulse Oximetry 97 98 Intake & Output 06/01/18 06/02/18 06/02/18 18:59 06:59 18:59 Intake Total 1237 / 1237 890 / 890 Output Total 375 / 375 325 / 325 Balance 862 / 862 565 / 565 Weight 55.5 kg Intake: IV 100 / 100 Keppra 1000 mg/100 mL Premix 100 / 100 100 ML @ 400 mls/hr IV.SIG Q12H [facility] Rx#:[id number] Tube Feeding 762 / 762 690 / 690 Tube Irrigant 200 / 200 100 / 100 Water Bolus Amount 275 / 275 Output: Urine Amount (Catheter) 325 / 325 325 / 325 Straight 325 / 325 325 / 325 Gastric Drainage 50 / 50 Left Nare 50 / 50 Other: # Voids 4 # Incontinent Voids 4 Date of Last Bowel Movement 06/01/18 # Bowel Movements 1 Physical Exam: CONSTITUTIONAL/GENERAL: cachectic TUBES/LINES/DRAINS: ET tube, NGT, tubbs, PIV SKIN: No jaundice, rashes, or lesions. No wounds seen anteriorly. Skin temperature appropriate. Not diaphoretic. HEAD: Atraumatic. Normocephalic. EYES: Right pupil reactive, left pupil oval shaped and fixed. eyes glassy. Fundi not examined. ENT: Nose without bleeding or purulent drainage. Throat exam limited by ET tube. NECK: Trachea midline. CARDIOVASCULAR: tachycardic, irr HR, no gallops, or rubs. RESPIRATORY/CHEST: Symmetric, unlabored respirations. Clear to auscultation. Breath sounds equal bilaterally. No wheezes, rales, or rhonchi. GASTROINTESTINAL: Abdomen soft, non-tender, nondistended. No hepato-splenomegaly , or palpable masses. No guarding. Bowel sounds present. GENITOURINARY: Without palpable bladder distension. Tubbs catheter in place. MUSCULOSKELETAL: + BUE edema NEUROLOGICAL: opens eyes intermittently, does not track or follow commands PSYCHIATRIC: unable to assess 2/2 mental status Diagnostic Tests Laboratory: Laboratory Results - last 72 hr 05/29/18 05/30/18 05/30/18 12:57 17:31 23:37 WBC RBC Hgb Hct MCV MCH MCHC RDW Plt Count MPV Sodium Potassium Chloride Carbon Dioxide Anion Gap BUN Creatinine Estimated GFR POC Glucose 220 H 170 H Random Glucose Calcium Phosphorus Magnesium Methylmalonic Acid 0.34 05/31/18 05/31/18 05/31/18 07:15 09:08 09:08 WBC 11.4 H RBC 2.50 L Hgb 8.5 L Hct 25.6 L MCV 102.5 H MCH 34.1 H MCHC 33.2 RDW 17.4 H Plt Count 315 MPV 7.6 Sodium 143 Potassium 3.8 D Chloride 106 Carbon Dioxide 27.4 Anion Gap 10 BUN 23 H Creatinine 0.79 Estimated GFR Greater than 89 POC Glucose 229 H Random Glucose 192 H Calcium 8.4 L Phosphorus 2.0 L Magnesium 1.6 Methylmalonic Acid 05/31/18 05/31/18 06/01/18 11:59 17:08 00:17 WBC RBC Hgb Hct MCV MCH MCHC RDW Plt Count MPV Sodium Potassium Chloride Carbon Dioxide Anion Gap BUN Creatinine Estimated GFR POC Glucose 187 H 179 H 205 H Random Glucose Calcium Phosphorus Magnesium Methylmalonic Acid 06/01/18 06/01/18 06/01/18 03:35 03:55 05:31 WBC 13.0 H RBC 2.28 L Hgb 7.7 L Hct 23.4 L MCV 102.8 H MCH 33.9 MCHC 32.9 RDW 18.1 H Plt Count 324 MPV 8.7 Sodium 143 Potassium 3.9 Chloride 105 Carbon Dioxide 26.9 Anion Gap 11 BUN 27 H Creatinine 0.72 Estimated GFR Greater than 89 POC Glucose 203 H Random Glucose 135 H Calcium 8.2 L Phosphorus 3.0 D Magnesium 1.6 Methylmalonic Acid 06/01/18 06/01/18 06/02/18 12:57 17:07 00:38 WBC RBC Hgb Hct MCV MCH MCHC RDW Plt Count MPV Sodium Potassium Chloride Carbon Dioxide Anion Gap BUN Creatinine Estimated GFR POC Glucose 168 H 195 H 189 H Random Glucose Calcium Phosphorus Magnesium Methylmalonic Acid 06/02/18 06/02/18 05:28 12:07 WBC RBC Hgb Hct MCV MCH MCHC RDW Plt Count MPV Sodium Potassium Chloride Carbon Dioxide Anion Gap BUN Creatinine Estimated GFR POC Glucose 220 H 116 H Random Glucose Calcium Phosphorus Magnesium Methylmalonic Acid Result Diagrams: 06/08/18 03:53 06/08/18 19:54 Microbiology: Microbiology 05/29/18 13:45 Urine Culture - Final Catheterized Urine Klebsiella pneumoniae Imaging: ITS Impressions Chest X-Ray 05/25/18 15:22 CONCLUSION: No acute cardiopulmonary disease. Head CT 05/25/18 15:22 CONCLUSION: Chronic small vessel ischemic and atrophic changes. Head MRI 05/27/18 00:00 CONCLUSION: 1. Atrophy, white matter disease and remote left temporal infarct with encephalomalacia. 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 . Has 10 kids. Originally from [place], grew up in [place], has been in [place] for 40 y. Lives with one of his daughters. Some of his children are local. Spiritual: Adventist non-sikh, daughter requests intensivist visit Legal: Pt is not capacitated to make medical decisions. It is unclear if he will regain capacity. He has previously designated son Carlos Alberto Barnett as primary HCS and daughter Amber as secondary. Ethical issues impacting care: none identified Important Contacts: Carlos Alberto Barnett son/primary HCS: [phone] Amber Barnett daughter/alternate HCS: [phone] or [phone] Prognosis: 72 yo male with seizure disorder since head injury 5 y ago, noncompliance with seizure meds, 50 year hx drinking up to or more than a gallon of wine daily admitted 05/25 after having seizure like activity, intubated in the field. EEG showing encephalopathy. He appears cachectic and malnourished. It is unclear if his encephalopathy will improve. His poor nutrition status makes full recovery unlikely. He is quite likely to continue having complications such as seizures d/t noncompliance, episodes of withdrawal, falls. He will likely continue to decline. Code Status: Alternative Code (intubation only) Plan: - LEGAL DECISON MAKER - [facility] completed 02/13/17 Amber Sellers secondary - CODE STATUS- alternate code; intubation only. - GOALS - Primary [facility] Carlos Alberto expressing aggressive goals short of alt code no CPR/shocks/ACLS drugs, no tracheostomy. While [facility] Carlos Alberto acknowledges that his father will inevitably return to drinking and is going to continue to decline, Carlos Alberto would like for pt to go to rehab after hospital. Carlos Alberto was receptive to hospice discussion but did not feel pt was ready for this. HE did verbalize that did not think pt would want a tracheostomy if unable to be extubated, and did not want this for pt. [facility] is in touch with other siblings and previously communicated less aggressive goals, "his casket is picked out." - SYMPTOMS - * dyspnea - intubated in field, now on mech vent. CPAP trials under way, pt seems to be tolerating. Has PRN and scheduled duonebs. * confusion - multifactorial, long hx etoh abuse, seizure disorder, head injury. ?withdrawal vs seizures vs both? EEG 05/26 showing encephalopathy, no seizure activity. NH elevated 40, ?component hepatic encephalopathy? TSH 0.298L. off sedation, tolerating CPAP trials, opening eyes and responds to family. Neurology following, poss prolonged post-ictal state, continue colby. - d/w PLACIDO Johnson - Palliative care will continue to follow during hospital course as condition evolves, to assist patient/decision-maker with understanding of medical conditions, weighing benefits/burdens of treatment options, for clarification of goals of treatment. Additionally will assist with any symptoms of palliative concern Attestation Collaborating MD Comments: Chart reviewed. Case discussed with palliative care FIRE AND SAFETY HELPER. Above FIRE AND SAFETY HELPER note reviewed and I concur. .
[2018-06-02] MEDS: Enoxaparin Inj 40 MG/0.4 ML Syringe SQ SCH (20:06)
[2018-06-03] MEDS: Oral Hygiene Kit OROPHARYNG SCH ×4 (00:13→17:03)
[2018-06-03] MEDS: Insulin NovoLIN Regular Correctional Sugar Inj SQ SCH ×3 (00:13→12:30)
[2018-06-03] MEDS: levETIRAcetam 1000mg/100mL Inj 100 ML IV.SIG SCH ×2 (01:01→12:28)
[2018-06-03] MEDS: Senna/Docusate Sodium 8.6/50 MG Tablet PO SCH ×2 (08:12→20:30)
[2018-06-03] MEDS: Famotidine PF Inj 20 MG/2 ML Vial IV.PUSH SCH ×2 (08:13→20:30)
[2018-06-03] MEDS: Chlorhexidine 0.12% Oral Kit 15 ML UDC OROPHARYNG SCH ×2 (08:14→20:30)
--- NOTE | 2018-06-03 11:16 | P.PNCC ---
Subjective Subjective Remarks/Hospital Course: Hospital Course: This is a 72-year-old male with a history of alcoholic cirrhosis and seizure disorder who presents with ongoing active grand mal seizures. He was altered in the field and unable to participate airway and was intubated in the field. No additional information is available from the patient. In the emergency department he was hypotensive requiring IV fluid boluses. Laboratory evidence is remarkable for an undetectable phenytoin level in a patient on chronic Dilantin therapy. Review of systems is unavailable due to the clinical condition of the patient. subjective: 05/26: EEG without ictal activity. phenytoin level now therapeutic. patient wakes and follows commands. will wean mechanical ventilation. however, etoh withdraw persists, and CAM+, so may be very difficult to extubate successfully. 05/27: no improvement in mental status. awakens and moves all extremities but does not follow commands. dilantin level slightly elevated this AM. will hold next dose and decrease future doses. ordered MRI to eval for ischemia. Son is the medical decision-maker and wants aggressive goals. daughter is "alternate" [id number] and was asking about hospice. 8/1: Remains sedated, orally intubated on mechanical ventilation. 8/2: Remains encephalopathic, sedated, orally intubated on mechanical ventilation. Tremors in right upper extremity. 8/3: Remains encephalopathic, orally intubated on mechanical ventilation. Neuro consult noted. 8/4: Remains encephalopathic, orally intubated on mechanical ventilation. Tolerating tube feeds. 8/5: Remains encephalopathic, orally intubated on mechanical ventilation. Tolerating tube feeds. Not awake enough for extubation. Daily CPAP trials ongoing. 8/6: Remains encephalopathic. Occasionally eye opening noted. Not following commands. Remains orally intubated on mechanical ventilation. Tolerating tube feeds. 8/7: Remains encephalopathic. Orally intubated on mechanical ventilation. Neuro status gradually improving. Levaquin being switched to Macrobid for UTI Objective Vital Signs / I&O: Vital Signs 06/02/18 11:40 06/02/18 12:00 06/02/18 13:00 Temperature 101.8 F H Pulse Rate 116 H 117 H Respiratory Rate 23 24 28 H Blood Pressure 115/61 113/65 Pulse Oximetry 95 97 98 06/02/18 14:00 08/06/18 15:00 06/02/18 16:00 Temperature 98.8 F Pulse Rate 109 H 103 H 100 H Respiratory Rate 21 30 H 29 H Blood Pressure 104/61 104/59 L 93/52 L Pulse Oximetry 96 97 95 06/02/18 17:00 06/02/18 18:00 06/02/18 19:00 Temperature Pulse Rate 98 H 100 H 101 H Respiratory Rate 25 H 25 H 26 H Blood Pressure 94/52 L 97/57 L 98/57 L Pulse Oximetry 97 97 100 06/02/18 19:48 06/02/18 19:59 06/02/18 20:00 Temperature Pulse Rate 107 H 105 H Respiratory Rate 28 H Blood Pressure 104/57 L Pulse Oximetry 96 96 06/02/18 20:13 06/02/18 21:00 06/02/18 22:00 Temperature 101.0 F H 98.7 F Pulse Rate 109 H 116 H Respiratory Rate 26 H 26 H 27 H Blood Pressure 102/55 L 108/73 Pulse Oximetry 96 97 100 06/02/18 23:00 06/02/18 23:01 06/02/18 23:02 Temperature 99.0 F Pulse Rate 109 H 109 H 109 H Respiratory Rate 21 22 25 H Blood Pressure 88/52 L 92/55 L Pulse Oximetry 97 98 98 06/02/18 23:11 06/03/18 00:00 06/03/18 00:47 Temperature Pulse Rate 106 H 102 H Respiratory Rate 19 21 19 Blood Pressure 97/54 L 107/58 L Pulse Oximetry 97 99 100 06/03/18 01:00 06/03/18 02:00 06/03/18 04:00 Temperature 99.4 F Pulse Rate 105 H 106 H 108 H Respiratory Rate 18 Blood Pressure 105/61 115/65 Pulse Oximetry 100 100 06/03/18 04:09 06/03/18 05:50 06/03/18 07:45 Temperature Pulse Rate 106 H Respiratory Rate 21 20 Blood Pressure Pulse Oximetry 100 06/03/18 08:00 06/03/18 10:00 Temperature 99.5 F Pulse Rate 106 H 104 H Respiratory Rate 25 H Blood Pressure 116/60 Pulse Oximetry 100 Intake & Output 06/02/18 06/03/18 06/03/18 18:59 06:59 18:59 Intake Total 600 / 600 1337 / 1337 Output Total 500 / 500 300 / 300 Balance 100 / 100 1037 / 1037 Weight 55.5 kg Intake: IV 450 / 450 Levaquin 750 mg Premix Inj 150 150 / 150 ML @ 100 mls/hr IV.SIG Q24H [facility] Rx#:[id number] Magnesium Sulfate Inj 2 GM In 100 / 100 NS Inj 96 ML @ 50 mls/hr IV.SIG UNSCH PRN Rx#:[id number] Keppra 1000 mg/100 mL Premix 200 / 200 100 ML @ 400 mls/hr IV.SIG Q12H [facility] Rx#:[id number] Tube Feeding 600 / 600 687 / 687 Tube Irrigant 200 / 200 Output: Urine Amount (Catheter) 500 / 500 300 / 300 Straight 500 / 500 300 / 300 Other: Date of Last Bowel Movement 06/03/18 06/03/18 Result Diagrams: 06/01/18 03:55 06/01/18 03:35 Objective Remarks: GENERAL: Frail elderly cachectic male, lying in bed, intubated, sedated, critically ill HEENT: Normocephalic. Atraumatic. Pupils equal, round, reactive, conjugate. Mucous membranes are moist. Evidence of temporal wasting. NECK: Trachea is midline. There is no JVD. CHEST: Intubated with 7.5 ET tube. Equal chest rise. CARDIOVASCULAR: Normal rate, regular rhythm. Sinus. ABDOMEN: Soft, scaphoid, nontender, nondistended. No guarding. MUSCULOSKELETAL: Pulses 2+. No peripheral edema. NEUROLOGICAL: Remains encephalopathic, orally intubated on mechanical ventilation. Not following commands. Assessment and Plan - Assessment and Plan Plan: Assessment: 72-year-old male with alcohol dependence and alcohol withdrawal syndrome combined with known seizure disorder and apparently noncompliant with home seizure medications including Dilantin. continue etoh withdraw therapies. MRI today. unable to extubate due to mental status. Plan by systems: Neurologic: Alcohol dependence Alcohol withdrawal Seizure disorder with active seizures- improving. Medication noncompliance Acute combined toxic and metabolic encephalopathy- resolving. Frequent neurochecks Avoid long-acting sedatives currently off all sedation. Fosphenytoin decreased to 50 mg IV every 8 hours on 05/27 Dilantin level EEG 05/26: negative for ictal activity. generalized slowing. Repeat EEG ordered on 05/29 in view of tremors noted in right upper extremity. Neurology consult noted. [facility] protocol start weaning valium. IV thiamine and multivitamins Head CT negative for acute disease 05/25. MRI results noted. Respiratory: Acute hypoxic and hypercarbic respiratory failure Vent bundle Head of bed elevated Nebs daily SBTs. cannot extubate due to mental status. Wean FiO2 for goal SPO2 greater than 90% Cardiovascular: Continue telemetry Maintenance IV fluids Renal: urinary retention - no indication for tubbs. straight cath q6h. -- Strict I/Os FEN/GI: Alcoholic cirrhosis Acute protein calorie malnutritionsevere Severe hypokalemia- resolving. Acute intravascular volume depletion- resolving. Hyponatremia- resolved Dehydration- resolving. ICU electrolyte protocol tube feeds: Jevity at goal rate of 60 ml/Hr nutrition consult and following. Maintenance IV fluids Daily BMP Heme/ID: UTI noted. Levaquin being switched to Nitrofurantoin on 06/03 due to concern for lowering seizure threshold. Endocrine: Hyperglycemia of critical illness -- SSI Prophylaxis: GI Prophylaxis Pepcid DVT Prophylaxis -- SCDs Lovenox Lines: Peripheral IVs Tubbs Dispo: remain in ICU. Critically ill. Time spent on critical care excluding procedures 30 minutes
--- NOTE | 2018-06-03 14:26 | P.PNPAL ---
Reason for Visit Reason for visit: a. To assist with evaluation and management of symptoms including: confusion, dyspnea b. To assist medical decision maker(s) with: better understanding of current medical conditions; weighing benefits/burdens of medical treatment options; making medical treatment decisions. Subjective Subjective/Interval History: Pt resting in bed, CPAP trials under way. Has tolerated CPAP today since this morning 0745. Sat 100%, FiO2 30. Rouses to verbal & physical stimuli. Called his name and he opened his eyes. THen back to sleep. Opened eyes to abd palpation. did not squeeze my hands on command. Off all sedation. Has UTI, temp this morning 100.5. Levaquin now changed to nitrofurantoin d/t effects on seizure threshold. Advance Directives Health Care Surrogate Name and Number: Carlos Alberto Barnett [phone]; Amber Barnett [phone], Objective Vital Signs: Vital Signs 06/02/18 15:00 06/02/18 16:00 06/02/18 17:00 Temperature 98.8 F Pulse Rate 103 H 100 H 98 H Respiratory Rate 30 H 29 H 25 H Blood Pressure 104/59 L 93/52 L 94/52 L Pulse Oximetry 97 95 97 06/02/18 18:00 06/02/18 19:00 06/02/18 19:48 Temperature Pulse Rate 100 H 101 H 107 H Respiratory Rate 25 H 26 H Blood Pressure 97/57 L 98/57 L Pulse Oximetry 97 100 06/02/18 19:59 06/02/18 20:00 06/02/18 20:13 Temperature Pulse Rate 105 H Respiratory Rate 28 H 26 H Blood Pressure 104/57 L Pulse Oximetry 96 96 96 06/02/18 21:00 06/02/18 22:00 06/02/18 23:00 Temperature 101.0 F H 98.7 F 99.0 F Pulse Rate 109 H 116 H 109 H Respiratory Rate 26 H 27 H 21 Blood Pressure 102/55 L 108/73 Pulse Oximetry 97 100 97 06/02/18 23:01 06/02/18 23:02 06/02/18 23:11 Temperature Pulse Rate 109 H 109 H Respiratory Rate 22 25 H 19 Blood Pressure 88/52 L 92/55 L Pulse Oximetry 98 98 97 06/03/18 00:00 06/03/18 00:47 08/07/18 01:00 Temperature Pulse Rate 106 H 102 H 105 H Respiratory Rate 21 19 18 Blood Pressure 97/54 L 107/58 L 105/61 Pulse Oximetry 99 100 100 06/03/18 02:00 06/03/18 04:00 06/03/18 04:09 Temperature 99.4 F Pulse Rate 106 H 108 H Respiratory Rate 21 Blood Pressure 115/65 Pulse Oximetry 100 100 06/03/18 05:50 06/03/18 07:45 06/03/18 08:00 Temperature 99.5 F Pulse Rate 106 H 106 H Respiratory Rate 20 25 H Blood Pressure 116/60 Pulse Oximetry 100 06/03/18 09:00 06/03/18 10:00 06/03/18 11:00 Temperature 100.5 F H Pulse Rate 104 H 104 H 104 H Respiratory Rate 25 H 17 25 H Blood Pressure 114/62 108/59 L 112/61 Pulse Oximetry 100 100 100 06/03/18 11:40 06/03/18 12:00 06/03/18 13:00 Temperature Pulse Rate 104 H 104 H Respiratory Rate 27 H 24 32 H Blood Pressure 109/57 L 109/60 Pulse Oximetry 100 100 99 Intake & Output 06/02/18 06/03/18 06/03/18 18:59 06:59 18:59 Intake Total 600 / 600 1337 / 1337 Output Total 500 / 500 300 / 300 Balance 100 / 100 1037 / 1037 Weight 55.5 kg Intake: IV 450 / 450 Levaquin 750 mg Premix Inj 150 150 / 150 ML @ 100 mls/hr IV.SIG Q24H [facility] Rx#:[id number] Magnesium Sulfate Inj 2 GM In 100 / 100 NS Inj 96 ML @ 50 mls/hr IV.SIG UNSCH PRN Rx#:[id number] Keppra 1000 mg/100 mL Premix 200 / 200 100 ML @ 400 mls/hr IV.SIG Q12H [facility] Rx#:[id number] Tube Feeding 600 / 600 687 / 687 Tube Irrigant 200 / 200 Output: Urine Amount (Catheter) 500 / 500 300 / 300 Straight 500 / 500 300 / 300 Other: Date of Last Bowel Movement 06/03/18 06/03/18 Physical Exam: CONSTITUTIONAL/GENERAL: cachectic TUBES/LINES/DRAINS: ET tube, NGT, tubbs, PIV SKIN: No jaundice, rashes, or lesions. No wounds seen anteriorly. Skin temperature appropriate. Not diaphoretic. HEAD: Atraumatic. Normocephalic. EYES: Right pupil reactive, left pupil oval shaped and fixed. eyes glassy. Fundi not examined. ENT: Nose without bleeding or purulent drainage. Throat exam limited by ET tube. NECK: Trachea midline. CARDIOVASCULAR: tachycardic, no gallops, or rubs. RESPIRATORY/CHEST: Symmetric, unlabored respirations. coarse sounds Right side. GASTROINTESTINAL: Abdomen soft, non-tender, nondistended. No hepato-splenomegaly , or palpable masses. No guarding. Bowel sounds present. GENITOURINARY: Without palpable bladder distension. Tubbs catheter in place. MUSCULOSKELETAL: + BUE edema NEUROLOGICAL: rouses to verbal & physical stimuli PSYCHIATRIC: unable to assess 2/2 mental status, ET tube Diagnostic Tests Laboratory: Laboratory Results - last 72 hr 05/29/18 05/31/18 06/01/18 12:57 17:08 00:17 WBC RBC Hgb Hct MCV MCH MCHC RDW Plt Count MPV Sodium Potassium Chloride Carbon Dioxide Anion Gap BUN Creatinine Estimated GFR POC Glucose 179 H 205 H Random Glucose Calcium Phosphorus Magnesium Methylmalonic Acid 0.34 06/01/18 06/01/18 06/01/18 03:35 03:55 05:31 WBC 13.0 H RBC 2.28 L Hgb 7.7 L Hct 23.4 L MCV 102.8 H MCH 33.9 MCHC 32.9 RDW 18.1 H Plt Count 324 MPV 8.7 Sodium 143 Potassium 3.9 Chloride 105 Carbon Dioxide 26.9 Anion Gap 11 BUN 27 H Creatinine 0.72 Estimated GFR Greater than 89 POC Glucose 203 H Random Glucose 135 H Calcium 8.2 L Phosphorus 3.0 D Magnesium 1.6 Methylmalonic Acid 06/01/18 06/01/18 06/02/18 12:57 17:07 00:38 WBC RBC Hgb Hct MCV MCH MCHC RDW Plt Count MPV Sodium Potassium Chloride Carbon Dioxide Anion Gap BUN Creatinine Estimated GFR POC Glucose 168 H 195 H 189 H Random Glucose Calcium Phosphorus Magnesium Methylmalonic Acid 06/02/18 06/02/18 06/02/18 05:28 12:07 17:47 WBC RBC Hgb Hct MCV MCH MCHC RDW Plt Count MPV Sodium Potassium Chloride Carbon Dioxide Anion Gap BUN Creatinine Estimated GFR POC Glucose 220 H 116 H 184 H Random Glucose Calcium Phosphorus Magnesium Methylmalonic Acid 06/03/18 06/03/18 06/03/18 00:12 05:00 11:31 WBC RBC Hgb Hct MCV MCH MCHC RDW Plt Count MPV Sodium Potassium Chloride Carbon Dioxide Anion Gap BUN Creatinine Estimated GFR POC Glucose 131 H 208 H 162 H Random Glucose Calcium Phosphorus Magnesium Methylmalonic Acid Result Diagrams: 06/01/18 03:55 06/01/18 03:35 Imaging: ITS Impressions Chest X-Ray 05/25/18 15:22 CONCLUSION: No acute cardiopulmonary disease. Head CT 05/25/18 15:22 CONCLUSION: Chronic small vessel ischemic and atrophic changes. Head MRI 05/27/18 00:00 CONCLUSION: 1. Atrophy, white matter disease and remote left temporal infarct with encephalomalacia. 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 . Has 10 kids. Originally from [place], grew up in [place], has been in [place] for 40 y. Lives with one of his daughters. Some of his children are local. Spiritual: Sabianism non-christian, daughter requests implementation analyst visit Legal: Pt is not capacitated to make medical decisions. It is unclear if he will regain capacity. He has previously designated son Carlos Alberto Barnett as primary HCS and daughter Amber as secondary. Ethical issues impacting care: none identified Important Contacts: Carlos Alberto Barnett, son/primary HCS: [phone] Amber Barnett daughter/alternate HCS: [phone] or [phone] Prognosis: 72 yo male with seizure disorder since head injury 5 y ago, noncompliance with seizure meds, 50 year hx drinking up to or more than a gallon of wine daily admitted 05/25 after having seizure like activity, intubated in the field. EEG showing encephalopathy. He appears cachectic and malnourished. It is unclear if his encephalopathy will improve. His poor nutrition status makes full recovery unlikely. He is quite likely to continue having complications such as seizures d/t noncompliance, episodes of withdrawal, falls. He will likely continue to decline. Code Status: Alternative Code (intubation only) Plan: - LEGAL DECISON MAKER - [facility] completed 02/13/17 Amber Sellers secondary - CODE STATUS- alternate code; intubation only. - GOALS - Primary HCS Carlos Alberto expressing aggressive goals short of alt code no CPR/shocks/ACLS drugs, no tracheostomy. While [facility] Carlos Alberto acknowledges that his father will inevitably return to drinking and is going to continue to decline, Carlos Alberto would like for pt to go to rehab after hospital. Carlos Alberto was receptive to hospice discussion but did not feel pt was ready for this. HE did verbalize that did not think pt would want a tracheostomy if unable to be extubated, and did not want this for pt. Amber secondary [facility] is in touch with other siblings and previously communicated less aggressive goals, "his casket is picked out." - SYMPTOMS - * dyspnea - intubated in field, now on mech vent. CPAP trials under way. Pt tolerating today since 744. sat 100% on cpap, fiO2 30. Has PRN and scheduled duonebs. * confusion - multifactorial, long hx etoh abuse, seizure disorder, head injury. ?withdrawal vs seizures vs both? EEG 05/26 showing encephalopathy, no seizure activity. NH elevated 40, ?component hepatic encephalopathy? TSH 0.298L. off sedation, tolerating CPAP trials, rouses to verbal & physical stimuli today. Neurology following, poss prolonged post-ictal state, continue keppra. levaquin changed to nitrofurantoin per neuro rec. - Palliative care will continue to follow during hospital course as condition evolves, to assist patient/decision-maker with understanding of medical conditions, weighing benefits/burdens of treatment options, for clarification of goals of treatment. Additionally will assist with any symptoms of palliative concern
[2018-06-03] MEDS: Nitrofurantoin Monohydrate-Macrocrystal 100 MG Capsule PO SCH ×2 (14:55→20:30)
[2018-06-03] MEDS: Enoxaparin Inj 40 MG/0.4 ML Syringe SQ SCH (20:29)
[2018-06-04] MEDS: Insulin NovoLIN Regular Correctional Sugar Inj SQ SCH ×5 (00:46→17:59)
[2018-06-04] MEDS: Oral Hygiene Kit OROPHARYNG SCH ×4 (00:46→17:58)
[2018-06-04] MEDS: levETIRAcetam 1000mg/100mL Inj 100 ML IV.SIG SCH ×2 (04:16→12:30)
[2018-06-04 06:12] LABS: Baso # (Auto) 0.2 th/mm3 (0.0-0.2); Eos # (Auto) 0.1 th/mm3 (0.0-0.4); Eos % (Auto) 0.7 % (0.0-4.0); Hematocrit 21.8 % (39.0-51.0); Lymph # (Auto) 1.2 th/mm3 (1.0-4.8); Lymph % (Auto) 8.2 % (9.0-44.0); Mean Corpuscular HGB Conc 31.7 % (32.0-36.0); Mean Corpuscular Hemoglobin 32.1 pg (27.0-34.0); Mean Corpuscular Volume 101.3 fL (80.0-100.0); Mean Platelet Volume 8.6 fL (7.0-11.0); Mono # (Auto) 0.9 th/mm3 (0.0-0.9); Mono % (Auto) 6.2 % (0.0-8.0); Neut # (Auto) 12.7 th/mm3 (1.8-7.7); Neut % (Auto) 83.9 % (16.0-70.0); Platelet Count 520 th/mm3 (150-450); Red Blood Count 2.16 mil/mm3 (4.50-5.90); White Blood Count 15.1 th/mm3 (4.0-11.0)
[2018-06-04 06:14] LABS: Hemoglobin 6.9 gm/dL (13.0-17.0)
[2018-06-04 06:35] LABS: Albumin 1.3 g/dL (3.4-5.0); Anion Gap 12 meq/L (5-15); Aspartate Aminotransferase 65 U/L (15-37); Blood Urea Nitrogen 29 mg/dL (7-18); Calcium 8.7 mg/dL (8.5-10.1); Carbon Dioxide 27.1 meq/L (21.0-32.0); Chloride 105 meq/L (98-107); Glomerular Filtration Rate Greater Than 89 mL/min (>89); Glucose,Random 102 mg/dL (74-106); Potassium 3.9 meq/L (3.5-5.1); Sodium 144 meq/L (136-145)
[2018-06-04 06:40] LABS: Alanine Aminotransferase 24 U/L (12-78); Alkaline Phosphatase 297 U/L (45-117); Total Protein 6.3 g/dL (6.4-8.2)
[2018-06-04 08:29] LABS: Baso % (Auto) 0.3 % (0.0-2.0); Eos # (Auto) 0.1 th/mm3 (0.0-0.4); Eos % (Auto) 0.5 % (0.0-4.0); Lymph # (Auto) 1.4 th/mm3 (1.0-4.8); Lymph % (Auto) 9.7 % (9.0-44.0); Mean Corpuscular HGB Conc 33.9 % (32.0-36.0); Mean Corpuscular Hemoglobin 33.5 pg (27.0-34.0); Mean Platelet Volume 8.4 fL (7.0-11.0); Mono # (Auto) 1.2 th/mm3 (0.0-0.9); Mono % (Auto) 8.1 % (0.0-8.0); Neut # (Auto) 11.8 th/mm3 (1.8-7.7); Neut % (Auto) 81.4 % (16.0-70.0); Platelet Count 498 th/mm3 (150-450); Red Blood Count 1.94 mil/mm3 (4.50-5.90); White Blood Count 14.5 th/mm3 (4.0-11.0)
[2018-06-04 08:35] LABS: Hematocrit 19.2 % (39.0-51.0); Hemoglobin 6.5 gm/dL (13.0-17.0)
[2018-06-04 08:49] LABS: Lymphocytes 10 % (9-44); Monocytes 5 % (0-8); Myelocytes 2 % (0-0)
[2018-06-04 08:50] LABS: Platelet Morphology Normal (Normal)
[2018-06-04] MEDS: Chlorhexidine 0.12% Oral Kit 15 ML UDC OROPHARYNG SCH ×2 (09:37→20:48)
[2018-06-04] MEDS: Nitrofurantoin Monohydrate-Macrocrystal 100 MG Capsule PO SCH (09:37)
[2018-06-04] MEDS: Famotidine PF Inj 20 MG/2 ML Vial IV.PUSH SCH ×2 (09:37→20:49)
[2018-06-04] MEDS: Senna/Docusate Sodium 8.6/50 MG Tablet PO SCH ×2 (09:37→20:49)
--- NOTE | 2018-06-04 10:14 | P.PNCC ---
Subjective Subjective Remarks/Hospital Course: Hospital Course: This is a 72-year-old male with a history of alcoholic cirrhosis and seizure disorder who presents with ongoing active grand mal seizures. He was altered in the field and unable to participate airway and was intubated in the field. No additional information is available from the patient. In the emergency department he was hypotensive requiring IV fluid boluses. Laboratory evidence is remarkable for an undetectable phenytoin level in a patient on chronic Dilantin therapy. Review of systems is unavailable due to the clinical condition of the patient. subjective: 05/26: EEG without ictal activity. phenytoin level now therapeutic. patient wakes and follows commands. will wean mechanical ventilation. however, etoh withdraw persists, and CAM+, so may be very difficult to extubate successfully. 05/27: no improvement in mental status. awakens and moves all extremities but does not follow commands. dilantin level slightly elevated this AM. will hold next dose and decrease future doses. ordered MRI to eval for ischemia. Son is the medical decision-maker and wants aggressive goals. daughter is "alternate" [id number] and was asking about hospice. 81: Remains sedated, orally intubated on mechanical ventilation. 8/2: Remains encephalopathic, sedated, orally intubated on mechanical ventilation. Tremors in right upper extremity. 8/3: Remains encephalopathic, orally intubated on mechanical ventilation. Neuro consult noted. 8/4: Remains encephalopathic, orally intubated on mechanical ventilation. Tolerating tube feeds. 8/5: Remains encephalopathic, orally intubated on mechanical ventilation. Tolerating tube feeds. Not awake enough for extubation. Daily CPAP trials ongoing. 86: Remains encephalopathic. Occasionally eye opening noted. Not following commands. Remains orally intubated on mechanical ventilation. Tolerating tube feeds. 87: Remains encephalopathic. Orally intubated on mechanical ventilation. Neuro status gradually improving. Levaquin being switched to Macrobid for UTI 06/04 No events overnight. On no sedation. T:100.5 yesterday. Hgb 6.5 this morning. Objective Vital Signs / I&O: Vital Signs 06/03/18 11:00 06/03/18 11:40 06/03/18 12:00 Temperature 100.5 F H Pulse Rate 104 H 104 H Respiratory Rate 25 H 27 H 24 Blood Pressure 112/61 109/57 L Pulse Oximetry 100 100 100 06/03/18 13:00 06/03/18 14:00 06/03/18 15:00 Temperature Pulse Rate 104 H 99 H 104 H Respiratory Rate 32 H 26 H 37 H Blood Pressure 109/60 108/61 119/68 Pulse Oximetry 99 100 100 06/03/18 16:00 06/03/18 17:00 06/03/18 18:00 Temperature 99.5 F Pulse Rate 98 H 95 H 97 H Respiratory Rate 18 16 16 Blood Pressure 99/55 L 106/62 112/63 Pulse Oximetry 100 100 100 06/03/18 19:00 06/03/18 19:50 06/03/18 20:00 Temperature 99.2 F Pulse Rate 96 H 98 H Respiratory Rate 14 18 17 Blood Pressure 106/55 L 106/55 L Pulse Oximetry 100 100 100 06/03/18 21:00 06/03/18 22:00 06/03/18 23:00 Temperature Pulse Rate 99 H 101 H 101 H Respiratory Rate 18 20 21 Blood Pressure 100/59 L 102/58 L 109/57 L Pulse Oximetry 99 100 100 06/04/18 00:00 06/04/18 00:08 06/04/18 01:00 Temperature 99.0 F Pulse Rate 109 H 108 H Respiratory Rate 24 22 24 Blood Pressure 110/59 L 117/63 Pulse Oximetry 100 100 99 06/04/18 02:00 06/04/18 03:00 06/04/18 04:00 Temperature 98.8 F Pulse Rate 111 H 114 H 115 H Respiratory Rate 25 H 25 H 19 Blood Pressure 119/62 108/67 145/70 H Pulse Oximetry 98 97 100 06/04/18 04:09 06/04/18 06:00 06/04/18 07:35 Temperature Pulse Rate 111 H Respiratory Rate 24 22 Blood Pressure Pulse Oximetry 98 100 Intake & Output 06/03/18 06/04/18 06/04/18 18:59 06:59 18:59 Intake Total 530 / 530 1007 / 1007 Output Total 750 / 750 100 / 100 Balance -220 / -220 907 / 907 Weight 55 kg Intake: IV 100 / 100 100 / 100 Keppra 1000 mg/100 mL Premix 100 / 100 100 / 100 100 ML @ 400 mls/hr IV.SIG Q12H [facility] Rx#:[id number] Tube Feeding 430 / 430 707 / 707 Water Bolus Amount 200 / 200 Output: Urine Amount (Catheter) 750 / 750 100 / 100 Straight 750 / 750 100 / 100 Other: Date of Last Bowel Movement 06/03/18 06/03/18 Result Diagrams: 06/04/18 08:00 06/04/18 03:00 Other Results: Laboratory Results - last 12 hr 06/03/18 06/04/18 06/04/18 23:27 03:00 03:00 WBC 15.1 H RBC 2.16 L Hgb 6.9 L* Hct 21.8 L MCV 101.3 H MCH 32.1 MCHC 31.7 L RDW 20.0 H Plt Count 520 H D MPV 8.6 Prelim Diff (Auto) Slide review pending Neut % (Auto) 83.9 H Lymph % (Auto) 8.2 L [place] % (Auto) 6.2 Eos % (Auto) 0.7 Baso % (Auto) 1.0 Neut # (Auto) 12.7 H Lymph # (Auto) 1.2 [place] # (Auto) 0.9 Eos # (Auto) 0.1 Baso # (Auto) 0.2 WBC Differential Manual diff final Seg Neuts % (Manual) 68 Band Neuts % (Manual) 15 H Lymphocytes % (Manual) 10 Monocytes % (Manual) 5 Myelocytes % (Man) 2 H Abs Neuts (Manual) 12.8 H Differential Comment . Platelet Estimate High H Platelet Morphology Normal Sodium 144 Potassium 3.9 Chloride 105 Carbon Dioxide 27.1 Anion Gap 12 BUN 29 H Creatinine 0.80 Estimated GFR Greater than 89 POC Glucose 142 H Random Glucose 102 Calcium 8.7 Total Bilirubin 0.6 AST 65 H ALT 24 Alkaline Phosphatase 297 H Total Protein 6.3 L Albumin 1.3 L 06/04/18 06/04/18 05:57 08:00 WBC 14.5 H RBC 1.94 L Hgb 6.5 L* Hct 19.2 L* MCV 99.0 MCH 33.5 MCHC 33.9 RDW 20.0 H Plt Count 498 H MPV 8.4 Prelim Diff (Auto) Auto diff final Neut % (Auto) 81.4 H Lymph % (Auto) 9.7 [place] % (Auto) 8.1 H Eos % (Auto) 0.5 Baso % (Auto) 0.3 Neut # (Auto) 11.8 H Lymph # (Auto) 1.4 [place] # (Auto) 1.2 H Eos # (Auto) 0.1 Baso # (Auto) 0.0 WBC Differential . Seg Neuts % (Manual) Band Neuts % (Manual) Lymphocytes % (Manual) Monocytes % (Manual) Myelocytes % (Man) Abs Neuts (Manual) Differential Comment . Platelet Estimate Platelet Morphology Sodium Potassium Chloride Carbon Dioxide Anion Gap BUN Creatinine Estimated GFR POC Glucose 165 H Random Glucose Calcium Total Bilirubin AST ALT Alkaline Phosphatase Total Protein Albumin Imaging: Chest X-Ray 05/25/18 15:22 CONCLUSION: No acute cardiopulmonary disease. Head CT 05/25/18 15:22 CONCLUSION: Chronic small vessel ischemic and atrophic changes. Head MRI 05/27/18 00:00 CONCLUSION: 1. Atrophy, white matter disease and remote left temporal infarct with encephalomalacia. Objective Remarks: GENERAL: Patient is 72 yo intubated off sedation. SKIN: Warm and dry. HEAD: Normocephalic. EYES: No scleral icterus. No injection or drainage. NECK: Supple, trachea midline. No JVD or lymphadenopathy. CARDIOVASCULAR: Regular rate and rhythm without murmurs, gallops, or rubs. RESPIRATORY: Breath sounds equal bilaterally. No accessory muscle use. GASTROINTESTINAL: Abdomen soft, non-tender, nondistended. MUSCULOSKELETAL: No cyanosis, or edema. Neuro: Intubated Assessment and Plan - Assessment and Plan Plan: Plan by systems: Neurologic: Alcohol dependence Alcohol withdrawal Seizure disorder with active seizures- improving. Medication noncompliance Acute combined toxic and metabolic encephalopathy- resolving. Frequent neurochecks Avoid long-acting sedatives currently off all sedation. Continue with Keppra per Neuro EEG 05/26: negative for ictal activity. generalized slowing. Repeat EEG ordered on 05/29 in view of tremors noted in right upper extremity. Neurology consult noted. [facility] protocol On thiamine and multivitamins Head CT negative for acute disease 05/25. MRI brain: Remote left temporal infarct, atrophy 05/27 Respiratory: Acute hypoxic and hypercarbic respiratory failure Vent bundle Head of bed elevated Continue with vent support keep sats >92% Bronchodilators, SBT daily as cassy. Check CXR Cardiovascular: Monitor HR and BP keep MAP>65mmHg Renal: urinary retention - no indication for tubbs. straight cath q6h. Monitor renal function. I/O's, electrolytes replacement per protocol Diurese with Bumex 1mg x1 FEN/GI: Alcoholic cirrhosis Acute protein calorie malnutritionsevere Severe hypokalemia- resolving. Acute intravascular volume depletion- resolving. Hyponatremia- resolved Dehydration- resolving. ICU electrolyte protocol tube feeds: On Jevity 1.5@60ml/hr ID: UTI noted. Urine cx: Kleb pneumonia on 05/29 Start on Aztreonam and Vanco, d/c Nitrofurantoin Panculture ( Blood, Sputum, UA with cx if needed) Heme: Monitor CBC, transfuse 2u PRBC for Hgb 6.5 Guaiac stool for Heme Endocrine: Hyperglycemia of critical illness -- SSI Prophylaxis: GI Prophylaxis Pepcid DVT Prophylaxis -- SCDs Lovenox, hold Lovenox given drop in Hgb 6.5 today Lines: Peripheral IVs Tubbs Palliative care is following Dispo: Level 3
--- NOTE | 2018-06-04 11:12 | XR ---
EXAM DATE: 06/04/2018 11:03 AM EDT AGE/SEX: 72 years / Male INDICATIONS: VDRF CLINICAL DATA: This is the patient's initial encounter. Patient reports that signs and symptoms have been present for 4 - 6 days and indicates a pain score of Nonresponsive. MEDICAL/SURGICAL HISTORY: Non-responsive. Non-responsive. [place] [facility] [place]. . FINDINGS: Patchy infiltrates are noted within the left mid and lower lung field and streakiness is noted within the right lung base consistent with atelectasis and/or pneumonia. Clinical correlation is recommende d. The heart is normal. The endotracheal tube has its tip 3 cm above the olivia. A nasogastric tube h as tip below diaphragm. CONCLUSION: Patchy infiltrates are noted within the left mid and lower lung field and streakiness is noted within the right lung base consistent with atelectasis and/or pneumonia. Clinical correlation is recommende d. Electronically signed by: Desmond Rodriguez MD 06/04/2018 11:10 AM EDT
[2018-06-04] MEDS: Vancomycin Inj 1,000 MG in Sodium Chlor 0.9% Inj 250 ML IV.SIG SCH (12:31)
[2018-06-04 19:34] LABS: Bacteria,Urine Rare /hpf; Bilirubin,Urine Negative (Negative); Clarity,Urine Clear (Clear); Color,Urine Yellow (Yellw/Straw); Glucose,Urine (UA) Negative (Negative); Leukocyte Esterase,Urine Negative (Negative); Nitrite,Urine Negative (Negative); Squamous Epithelial Cell,Urine <1 /hpf (0-5); Urobilinogen,Urine 4 or Greater mg/dL (Less than 2)
[2018-06-05] MEDS: levETIRAcetam 1000mg/100mL Inj 100 ML IV.SIG SCH ×2 (00:10→15:24)
[2018-06-05] MEDS: Vancomycin Inj 1,000 MG in Sodium Chlor 0.9% Inj 250 ML IV.SIG SCH (00:11)
[2018-06-05] MEDS: Insulin NovoLIN Regular Correctional Sugar Inj SQ SCH ×5 (00:11→23:53)
[2018-06-05] MEDS: Oral Hygiene Kit OROPHARYNG SCH ×4 (00:12→16:54)
[2018-06-05 00:41] LABS: Hematocrit 31.7 % (39.0-51.0)
[2018-06-05] MEDS: Propofol 1000 mg/100 ml Inj 1,000 MG/100 ML BOTTLE IV.CONT PRN (02:00)
[2018-06-05] MEDS: Metoprolol Inj 5 MG/5 ML Vial IV.PUSH PRN (02:09)
[2018-06-05 07:48] LABS: Baso # (Auto) 0.2 th/mm3 (0.0-0.2); Eos # (Auto) 0.1 th/mm3 (0.0-0.4); Eos % (Auto) 0.3 % (0.0-4.0); Hematocrit 28.7 % (39.0-51.0); Hemoglobin 9.8 gm/dL (13.0-17.0); Lymph # (Auto) 1.2 th/mm3 (1.0-4.8); Lymph % (Auto) 7.1 % (9.0-44.0); Mean Corpuscular HGB Conc 34.2 % (32.0-36.0); Mean Corpuscular Hemoglobin 32.1 pg (27.0-34.0); Mean Corpuscular Volume 94.1 fL (80.0-100.0); Mean Platelet Volume 8.4 fL (7.0-11.0); Mono # (Auto) 1.2 th/mm3 (0.0-0.9); Mono % (Auto) 6.9 % (0.0-8.0); Neut # (Auto) 14.6 th/mm3 (1.8-7.7); Neut % (Auto) 84.7 % (16.0-70.0); Platelet Count 500 th/mm3 (150-450); Red Blood Count 3.05 mil/mm3 (4.50-5.90); Red Cell Distribution Width 19.7 % (11.6-17.2); White Blood Count 17.2 th/mm3 (4.0-11.0)
[2018-06-05 08:07] LABS: Albumin 1.4 g/dL (3.4-5.0); Anion Gap 12 meq/L (5-15); Aspartate Aminotransferase 62 U/L (15-37); Blood Urea Nitrogen 29 mg/dL (7-18); Calcium 8.4 mg/dL (8.5-10.1); Carbon Dioxide 25.1 meq/L (21.0-32.0); Chloride 108 meq/L (98-107); Glomerular Filtration Rate 88 mL/min (>89); Glucose,Random 131 mg/dL (74-106); Potassium 3.4 meq/L (3.5-5.1); Sodium 145 meq/L (136-145)
[2018-06-05 08:09] LABS: Alanine Aminotransferase 22 U/L (12-78)
[2018-06-05 08:10] LABS: Alkaline Phosphatase 326 U/L (45-117); Total Protein 6.3 g/dL (6.4-8.2)
--- NOTE | 2018-06-05 08:31 | P.PNNEU ---
Subjective Subjective Comments: still on vent back on sedatives due to inc rr Active Medications: Active Medications Acetaminophen (Tylenol Liq) 650 mg PO Q6H PRN PRN Reason: SEE DOSE INSTRUCTIONS Last Admin: 06/05/18 04:47 Dose: 650 mg Al Hydroxide/Mg Hydroxide (Milk Of Magnesia Liq) 30 ml PO Q12H PRN PRN Reason: Mild Constipation Albuterol (Duoneb Neb (Prn)) 1 ampul NEB Q2HR NEB PRN PRN Reason: WHEEZING Albuterol (Duoneb Neb (Leigha)) 1 ampul NEB Q4HR NEB LEIGHA Last Admin: 06/05/18 07:34 Dose: 1 ampul Bisacodyl (Dulcolax Supp) 10 mg RECTAL DAILY PRN PRN Reason: SEVERE CONSITIPATION Chlorhexidine Gluconate (Peridex 0.12% Oral Kit) 15 ml OROPHARYNG BID@0800, 1999 REPLACED BY [facility] Last Admin: 06/04/18 20:48 Dose: 15 ml Dextrose (D50w Vial) 50 ml IV.PUSH UNSCH PRN PRN Reason: PER HYPOGLYCEMIA PROTOCOL Enoxaparin Sodium (Lovenox Inj) 40 mg SQ Q24H REPLACED BY [facility] Last Admin: 06/03/18 20:29 Dose: 40 mg Famotidine (Pepcid Pf Inj) 20 mg IV.PUSH Q12HR REPLACED BY [facility] Last Admin: 06/04/18 20:49 Dose: 20 mg Flumazenil (Romazecon Inj) 0.2 mg IV.PUSH Q1M PRN PRN Reason: OVERSEDATION Glucagon (Glucagon Inj) 1 mg OTHER PRN PRN PRN Reason: for Hypoglycemia Protocol Magnesium Sulfate Inj 4 gm/ (Sodium Chloride) 100 mls @ 50 mls/hr IV.SIG UNSCH PRN PRN Reason: For Magnesium 0.9 - 1.1 mg/dL Magnesium Sulfate Inj 2 gm/ (Sodium Chloride) 100 mls @ 50 mls/hr IV.SIG UNSCH PRN PRN Reason: For Magnesium 1.2 - 1.6 mg/dL Last Infusion: 06/04/18 07:00 Dose: Infused Potassium Chloride (Kcl 40 Meq Premix Inj) 40 meq in 100 mls @ 25 mls/hr IV.SIG Q2H PRN PRN Reason: For Potassium 2.8 - 3.2 mEq/L Potassium Chloride (Kcl 40 Meq Premix Inj) 40 meq in 100 mls @ 25 mls/hr IV.SIG UNSCH PRN PRN Reason: For Potassium 3.3 - 3.5 mEq/L Potassium Chloride (Kcl 20 Meq Premix Inj) 20 meq in 100 mls @ 50 mls/hr IV.SIG Q2H PRN PRN Reason: For Potassium 2.8 - 3.2 mEq/L Potassium Phosphate 30 mmol/ (Sodium Chloride) 260 mls @ 42 mls/hr IV.SIG UNSCH PRN PRN Reason: SEE LABEL COMMENTS Sodium Phosphate 30 mmol/ (Sodium Chloride) 260 mls @ 42 mls/hr IV.SIG UNSCH PRN PRN Reason: For Phosphorus < 2.5 mg/dL Last Infusion: 05/27/18 14:58 Dose: Infused Potassium Chloride (Kcl 20 Meq Premix Inj) 20 meq in 100 mls @ 50 mls/hr IV.SIG Q2H PRN PRN Reason: For Potassium 3.3 - 3.5 mEq/L Propofol (Diprivan 1000 Mg/100 Ml Inj) 1,000 mg in 100 mls @ 1.606 mls/hr IV.CONT TITRATE PRN; Protocol PRN Reason: Per Protocol Last Admin: 06/05/18 02:00 Dose: 5 mcg/kg/min, 1.61 mls/hr Levetiracetam (Keppra 1000 Mg/100 Ml Premix) 100 mls @ 400 mls/hr IV.SIG Q12H LEIGHA Last Infusion: 06/05/18 00:25 Dose: Infused Aztreonam 1,000 mg/ Sodium (Chloride) 100 mls @ 200 mls/hr IV.SIG Q8H LEIGHA Last Infusion: 06/05/18 05:00 Dose: Infused Vancomycin HCl 1,000 mg/ (Sodium Chloride) 250 mls @ 250 mls/hr IV.SIG Q12H LEIGHA Last Infusion: 06/05/18 01:15 Dose: Infused Insulin Human Regular (Novolin R Correctional Sugar Inj) 0 units SQ Q6HR LEIGHA; Protocol Last Admin: 06/05/18 06:51 Dose: 2 units Lactulose (Lactulose Liq) 30 ml PO DAILY PRN PRN Reason: SEVERE CONSITIPATION Magnesium Oxide (Mag-Ox) 800 mg PO UNSCH PRN PRN Reason: For Magnesium 1.2 - 1.6 mg/dL Miscellaneous (Pill Splitter) 1 each OTHER UNSCH PRN PRN Reason: PILL SPLITTER Ondansetron HCl (Zofran Inj) 4 mg IV.PUSH Q6H PRN PRN Reason: NAUSEA OR VOMITING Potassium Bicarb/Potassium Chloride (K-Lyte Cl Eff) 50 meq PO UNSCH PRN PRN Reason: For Potassium 3.3 - 3.5 mEq/L Last Admin: 05/26/18 11:33 Dose: 50 meq Potassium Phosphate (K-Phos Original) 2,000 mg PO Q4H PRN PRN Reason: Phosphorus Less Than 2.5 mg/dL Last Admin: 05/31/18 17:47 Dose: 2,000 mg Potassium Phosphate (K-Phos Original) 2,000 mg PO UNSCH PRN PRN Reason: SEE LABEL COMMENTS Senna/Docusate Sodium (Anupama-Colace) 1 tab PO BID REPLACED BY [facility] Last Admin: 06/04/18 20:49 Dose: 1 tab Sennosides (Senokot) 17.2 mg PO Q12H PRN PRN Reason: Moderate Constipation Sodium Chloride (Ns Flush) 2 ml IV.FLUSH BID REPLACED BY [facility] Last Admin: 06/04/18 20:48 Dose: 2 ml Sodium Chloride (Ns Flush) 2 ml IV.FLUSH PRN PRN PRN Reason: FLUSH AFTER USING IV ACCESS Last Admin: 06/01/18 00:10 Dose: 2 ml Thiamine HCl (Vitamin B1) 100 mg PO DAILY REPLACED BY [facility] Last Admin: 06/04/18 09:37 Dose: 100 mg Allergies/Adverse Reactions: Allergies Allergy/AdvReac Type Severity Reaction Status Date / Time Unable to Assess Allergy Unknown Unconscious Verified 05/25/18 17:12 Physical Exam Vital signs: Vital Signs 06/04/18 09:45 06/04/18 10:00 06/04/18 11:30 Temperature Pulse Rate 107 H Respiratory Rate 24 31 H Blood Pressure Pulse Oximetry 100 100 06/04/18 12:00 06/04/18 13:40 06/04/18 14:00 Temperature 100.8 F H 100.8 F H Pulse Rate 108 H 106 H 104 H Respiratory Rate 25 H 22 Blood Pressure 116/63 108/57 L Pulse Oximetry 98 98 06/04/18 14:55 06/04/18 16:00 06/04/18 16:06 Temperature 99.4 F 99.5 F Pulse Rate 100 H 99 H 98 H Respiratory Rate 24 22 24 Blood Pressure 113/63 113/63 Pulse Oximetry 100 99 98 06/04/18 18:00 06/04/18 20:00 06/04/18 20:08 Temperature 98.8 F Pulse Rate 103 H 102 H 102 H Respiratory Rate 23 28 H Blood Pressure 118/66 Pulse Oximetry 100 06/04/18 20:10 06/04/18 22:00 06/04/18 23:42 Temperature Pulse Rate 108 H 113 H Respiratory Rate 28 H 30 H Blood Pressure Pulse Oximetry 100 96 06/05/18 00:00 06/05/18 02:00 06/05/18 03:35 Temperature 99 F Pulse Rate 113 H 125 H 118 H Respiratory Rate 25 H 29 H Blood Pressure 126/72 Pulse Oximetry 100 06/05/18 04:00 06/05/18 06:00 Temperature 101.5 F H Pulse Rate 117 H 117 H Respiratory Rate 28 H Blood Pressure 127/71 Pulse Oximetry Intake & Output 06/04/18 06/05/18 06/05/18 18:59 06:59 18:59 Intake Total 1226 / 1226 1406 / 1406 Output Total 800 / 800 200 / 200 Balance 426 / 426 1206 / 1206 Weight 57 kg Intake: IV 550 / 550 550 / 550 Diprivan 1000 mg/100 ml Inj 1, 100 / 100 000 mg In 100 ml @ 5 MCG/KG/MIN 1.606 mls/hr IV.CONT TITRATE PRN Rx#:[id number] Azactam Inj 1,000 MG In NS Inj 100 / 100 200 / 200 100 ML @ 200 mls/hr IV.SIG Q8H LEIGHA Rx#:[id number] Magnesium Sulfate Inj 2 GM In 0 / 0 NS Inj 96 ML @ 50 mls/hr IV.SIG UNSCH PRN Rx#:[id number] Vancomycin Inj 1,000 MG In NS 250 / 250 250 / 250 Inj 250 ML @ 250 mls/hr IV.SIG Q12H LEIGHA Rx#:[id number] Keppra 1000 mg/100 mL Premix 100 / 100 100 / 100 100 ML @ 400 mls/hr IV.SIG Q12H LEIGHA Rx#:[id number] Tube Feeding 556 / 556 796 / 796 Water Bolus Amount 60 / 60 60 / 60 Other 60 / 60 Rbc As-3 Leukoreduced Unit 60 / 60 [id number] Intake (Blood Product) Amt 0 / 0 Rbc As-3 Leukoreduced Unit 0 / 0 [id number] Rbc As-3 Leukoreduced Unit 0 / 0 [id number] Output: Urine Amount (Catheter) 800 / 800 200 / 200 Condom 200 / 200 Straight 800 / 800 Other: Other Intake Source Rbc As-3 Leukoreduced Unit Saline Solution [id number] Date of Last Bowel Movement 06/03/18 06/03/18 # Bowel Movements 1 Narrative: opens eye off sedatives 20 min not follow commands moves hands a little - Urinary Catheter Management Indwelling Urethral Catheter Cath placed during this visit: yes, but has since been removed by the nurse Reason for continuing: Not indwelling catheter Insertion date: 05/25/18 Insertion time: 15:00 Removal date: 05/26/18 Removal time: 12:00 Straight Cath placed during this visit: yes Reason for continuing: Not indwelling catheter Insertion date: 06/05/18 Insertion time: 00:20 Condom Cath placed during this visit: no Reason for continuing: Not indwelling catheter Objective Laboratory Results - last 24 hr 06/04/18 06/04/18 06/04/18 03:00 08:00 09:50 WBC 14.5 H RBC 1.94 L Hgb 6.5 L* Hct 19.2 L* MCV 99.0 MCH 33.5 MCHC 33.9 RDW 20.0 H Plt Count 498 H MPV 8.4 Prelim Diff (Auto) Auto diff final Neut % (Auto) 81.4 H Lymph % (Auto) 9.7 [place] % (Auto) 8.1 H Eos % (Auto) 0.5 Baso % (Auto) 0.3 Neut # (Auto) 11.8 H Lymph # (Auto) 1.4 [place] # (Auto) 1.2 H Eos # (Auto) 0.1 Baso # (Auto) 0.0 WBC Differential Manual diff final . Seg Neuts % (Manual) 68 Band Neuts % (Manual) 15 H Lymphocytes % (Manual) 10 Monocytes % (Manual) 5 Myelocytes % (Man) 2 H Abs Neuts (Manual) 12.8 H Differential Comment . Platelet Estimate High H Platelet Morphology Normal Sodium Potassium Chloride Carbon Dioxide Anion Gap BUN Creatinine Estimated GFR POC Glucose Random Glucose Calcium Total Bilirubin AST ALT Alkaline Phosphatase Total Protein Albumin Urine Color Urine Clarity Urine pH Ur Specific [place] Urine Protein Urine Glucose (UA) Urine Ketones Urine Occult Blood Urine Nitrate Urine Bilirubin Urine Urobilinogen Ur Leukocyte Esterase Urine WBC Ur Squamous Epith Cells Urine Bacteria Micro UA Comment Urine Culture Comments Blood Type O Positive Antibody Screen Negative MTS Gel Crossmatch See Detail 06/04/18 06/04/18 06/04/18 11:58 16:13 17:00 WBC RBC Hgb Hct MCV MCH MCHC RDW Plt Count MPV Prelim Diff (Auto) Neut % (Auto) Lymph % (Auto) [place] % (Auto) Eos % (Auto) Baso % (Auto) Neut # (Auto) Lymph # (Auto) [place] # (Auto) Eos # (Auto) Baso # (Auto) WBC Differential Seg Neuts % (Manual) Band Neuts % (Manual) Lymphocytes % (Manual) Monocytes % (Manual) Myelocytes % (Man) Abs Neuts (Manual) Differential Comment Platelet Estimate Platelet Morphology Sodium Potassium Chloride Carbon Dioxide Anion Gap BUN Creatinine Estimated GFR POC Glucose 163 H 108 Random Glucose Calcium Total Bilirubin AST ALT Alkaline Phosphatase Total Protein Albumin Urine Color Yellow Urine Clarity Clear Urine pH 7.0 Ur Specific [place] 1.010 Urine Protein Negative Urine Glucose (UA) Negative Urine Ketones Negative Urine Occult Blood Negative Urine Nitrate Negative Urine Bilirubin Negative Urine Urobilinogen 4 or greater Ur Leukocyte Esterase Negative Urine WBC 1 Ur Squamous Epith Cells <1 Urine Bacteria Rare H Micro UA Comment Cath-culture ind Urine Culture Comments Cath-cult indicated Blood Type Antibody Screen MTS Gel Crossmatch 06/04/18 06/05/18 06/05/18 23:55 00:25 06:13 WBC 17.2 H RBC 3.05 L Hgb 11.0 L D 9.8 L Hct 31.7 L 28.7 L MCV 94.1 D MCH 32.1 MCHC 34.2 RDW 19.7 H Plt Count 500 H MPV 8.4 Prelim Diff (Auto) Neut % (Auto) 84.7 H Lymph % (Auto) 7.1 L [place] % (Auto) 6.9 Eos % (Auto) 0.3 Baso % (Auto) 1.0 Neut # (Auto) 14.6 H Lymph # (Auto) 1.2 [place] # (Auto) 1.2 H Eos # (Auto) 0.1 Baso # (Auto) 0.2 WBC Differential . Seg Neuts % (Manual) Band Neuts % (Manual) Lymphocytes % (Manual) Monocytes % (Manual) Myelocytes % (Man) Abs Neuts (Manual) Differential Comment Auto diff final Platelet Estimate Platelet Morphology Sodium Potassium Chloride Carbon Dioxide Anion Gap BUN Creatinine Estimated GFR POC Glucose 159 H Random Glucose Calcium Total Bilirubin AST ALT Alkaline Phosphatase Total Protein Albumin Urine Color Urine Clarity Urine pH Ur Specific [place] Urine Protein Urine Glucose (UA) Urine Ketones Urine Occult Blood Urine Nitrate Urine Bilirubin Urine Urobilinogen Ur Leukocyte Esterase Urine WBC Ur Squamous Epith Cells Urine Bacteria Micro UA Comment Urine Culture Comments Blood Type Antibody Screen MTS Gel Crossmatch 06/05/18 06/05/18 06:13 06:22 WBC RBC Hgb Hct MCV MCH MCHC RDW Plt Count MPV Prelim Diff (Auto) Neut % (Auto) Lymph % (Auto) [place] % (Auto) Eos % (Auto) Baso % (Auto) Neut # (Auto) Lymph # (Auto) [place] # (Auto) Eos # (Auto) Baso # (Auto) WBC Differential Seg Neuts % (Manual) Band Neuts % (Manual) Lymphocytes % (Manual) Monocytes % (Manual) Myelocytes % (Man) Abs Neuts (Manual) Differential Comment Platelet Estimate Platelet Morphology Sodium 145 Potassium 3.4 L Chloride 108 H Carbon Dioxide 25.1 Anion Gap 12 BUN 29 H Creatinine 0.85 Estimated GFR 88 L POC Glucose 163 H Random Glucose 131 H Calcium 8.4 L Total Bilirubin 0.8 AST 62 H ALT 22 Alkaline Phosphatase 326 H Total Protein 6.3 L Albumin 1.4 L Urine Color Urine Clarity Urine pH Ur Specific [place] Urine Protein Urine Glucose (UA) Urine Ketones Urine Occult Blood Urine Nitrate Urine Bilirubin Urine Urobilinogen Ur Leukocyte Esterase Urine WBC Ur Squamous Epith Cells Urine Bacteria Micro UA Comment Urine Culture Comments Blood Type Antibody Screen MTS Gel Crossmatch Review/Management - Review/Management Plan: imp mri and eeg neg on keppra hold all sedatives could be prolonged postictal will fu saturday see if awakens over next few days no apparent reason why he would not - 06/02/18 much better should do well keppra off vent when able 06/05/18 no sz he should bounce back neurowise to prior level of functioning keppra stable neuro
--- NOTE | 2018-06-05 09:04 | P.PNCC ---
Subjective Subjective Remarks/Hospital Course: Hospital Course: This is a 72-year-old male with a history of alcoholic cirrhosis and seizure disorder who presents with ongoing active grand mal seizures. He was altered in the field and unable to participate airway and was intubated in the field. No additional information is available from the patient. In the emergency department he was hypotensive requiring IV fluid boluses. Laboratory evidence is remarkable for an undetectable phenytoin level in a patient on chronic Dilantin therapy. Review of systems is unavailable due to the clinical condition of the patient. subjective: 05/26: EEG without ictal activity. phenytoin level now therapeutic. patient wakes and follows commands. will wean mechanical ventilation. however, etoh withdraw persists, and CAM+, so may be very difficult to extubate successfully. 05/27: no improvement in mental status. awakens and moves all extremities but does not follow commands. dilantin level slightly elevated this AM. will hold next dose and decrease future doses. ordered MRI to eval for ischemia. Son is the medical decision-maker and wants aggressive goals. daughter is "alternate" [id number] and was asking about hospice. 81: Remains sedated, orally intubated on mechanical ventilation. 82: Remains encephalopathic, sedated, orally intubated on mechanical ventilation. Tremors in right upper extremity. 83: Remains encephalopathic, orally intubated on mechanical ventilation. Neuro consult noted. 84: Remains encephalopathic, orally intubated on mechanical ventilation. Tolerating tube feeds. 85: Remains encephalopathic, orally intubated on mechanical ventilation. Tolerating tube feeds. Not awake enough for extubation. Daily CPAP trials ongoing. 6: Remains encephalopathic. Occasionally eye opening noted. Not following commands. Remains orally intubated on mechanical ventilation. Tolerating tube feeds. 7: Remains encephalopathic. Orally intubated on mechanical ventilation. Neuro status gradually improving. Levaquin being switched to Macrobid for UTI 06/04 No events overnight. On no sedation. T:100.5 yesterday. Hgb 6.5 this morning. 06/05 Patient was started on Diprivan overnight for sedation. s/p transfusion 2u PRBC yesterday. Had T:101.5 at 4 am. Objective Vital Signs / I&O: Vital Signs 08/08/18 09:45 06/04/18 10:00 06/04/18 11:30 Temperature Pulse Rate 107 H Respiratory Rate 24 31 H Blood Pressure Pulse Oximetry 100 100 06/04/18 12:00 06/04/18 13:40 06/04/18 14:00 Temperature 100.8 F H 100.8 F H Pulse Rate 108 H 106 H 104 H Respiratory Rate 25 H 22 Blood Pressure 116/63 108/57 L Pulse Oximetry 98 98 06/04/18 14:55 06/04/18 16:00 06/04/18 16:06 Temperature 99.4 F 99.5 F Pulse Rate 100 H 99 H 98 H Respiratory Rate 24 22 24 Blood Pressure 113/63 113/63 Pulse Oximetry 100 99 98 06/04/18 18:00 06/04/18 20:00 06/04/18 20:08 Temperature 98.8 F Pulse Rate 103 H 102 H 102 H Respiratory Rate 23 28 H Blood Pressure 118/66 Pulse Oximetry 100 06/04/18 20:10 06/04/18 22:00 06/04/18 23:42 Temperature Pulse Rate 108 H 113 H Respiratory Rate 28 H 30 H Blood Pressure Pulse Oximetry 100 96 06/05/18 00:00 06/05/18 02:00 06/05/18 03:35 Temperature 99 F Pulse Rate 113 H 125 H 118 H Respiratory Rate 25 H 29 H Blood Pressure 126/72 Pulse Oximetry 100 06/05/18 04:00 06/05/18 06:00 06/05/18 07:35 Temperature 101.5 F H Pulse Rate 117 H 117 H 113 H Respiratory Rate 28 H 28 H Blood Pressure 127/71 Pulse Oximetry 98 Intake & Output 06/04/18 06/05/18 06/05/18 18:59 06:59 18:59 Intake Total 1226 / 1226 1406 / 1406 Output Total 800 / 800 200 / 200 Balance 426 / 426 1206 / 1206 Weight 57 kg Intake: IV 550 / 550 550 / 550 Diprivan 1000 mg/100 ml Inj 1, 100 / 100 000 mg In 100 ml @ 5 MCG/KG/MIN 1.606 mls/hr IV.CONT TITRATE PRN Rx#:[id number] Azactam Inj 1,000 MG In NS Inj 100 / 100 200 / 200 100 ML @ 200 mls/hr IV.SIG Q8H [facility] Rx#:[id number] Magnesium Sulfate Inj 2 GM In 0 / 0 NS Inj 96 ML @ 50 mls/hr IV.SIG UNSCH PRN Rx#:[id number] Vancomycin Inj 1,000 MG In NS 250 / 250 250 / 250 Inj 250 ML @ 250 mls/hr IV.SIG Q12H [facility] Rx#:[id number] Keppra 1000 mg/100 mL Premix 100 / 100 100 / 100 100 ML @ 400 mls/hr IV.SIG Q12H [facility] Rx#:[id number] Tube Feeding 556 / 556 796 / 796 Water Bolus Amount 60 / 60 60 / 60 Other 60 / 60 Rbc As-3 Leukoreduced Unit 60 / 60 [id number] Intake (Blood Product) Amt 0 / 0 Rbc As-3 Leukoreduced Unit 0 / 0 [id number] Rbc As-3 Leukoreduced Unit 0 / 0 [id number] Output: Urine Amount (Catheter) 800 / 800 200 / 200 Condom 200 / 200 Straight 800 / 800 Other: Other Intake Source Rbc As-3 Leukoreduced Unit Saline Solution [id number] Date of Last Bowel Movement 06/03/18 06/03/18 # Bowel Movements 1 Result Diagrams: 06/05/18 06:13 06/05/18 06:13 Other Results: Laboratory Results - last 12 hr 06/04/18 06/05/18 06/05/18 23:55 00:25 06:13 WBC 17.2 H RBC 3.05 L Hgb 11.0 L D 9.8 L Hct 31.7 L 28.7 L MCV 94.1 D MCH 32.1 MCHC 34.2 RDW 19.7 H Plt Count 500 H MPV 8.4 Neut % (Auto) 84.7 H Lymph % (Auto) 7.1 L Archer % (Auto) 6.9 Eos % (Auto) 0.3 Baso % (Auto) 1.0 Neut # (Auto) 14.6 H Lymph # (Auto) 1.2 Archer # (Auto) 1.2 H Eos # (Auto) 0.1 Baso # (Auto) 0.2 WBC Differential . Differential Comment Auto diff final Sodium Potassium Chloride Carbon Dioxide Anion Gap BUN Creatinine Estimated GFR POC Glucose 159 H Random Glucose Calcium Total Bilirubin AST ALT Alkaline Phosphatase Total Protein Albumin 06/05/18 06/05/18 06:13 06:22 WBC RBC Hgb Hct MCV MCH MCHC RDW Plt Count MPV Neut % (Auto) Lymph % (Auto) Archer % (Auto) Eos % (Auto) Baso % (Auto) Neut # (Auto) Lymph # (Auto) Archer # (Auto) Eos # (Auto) Baso # (Auto) WBC Differential Differential Comment Sodium 145 Potassium 3.4 L Chloride 108 H Carbon Dioxide 25.1 Anion Gap 12 BUN 29 H Creatinine 0.85 Estimated GFR 88 L POC Glucose 163 H Random Glucose 131 H Calcium 8.4 L Total Bilirubin 0.8 AST 62 H ALT 22 Alkaline Phosphatase 326 H Total Protein 6.3 L Albumin 1.4 L Imaging: Head CT 05/25/18 15:22 CONCLUSION: Chronic small vessel ischemic and atrophic changes. Head MRI 05/27/18 00:00 CONCLUSION: 1. Atrophy, white matter disease and remote left temporal infarct with encephalomalacia. Chest X-Ray 06/04/18 09:56 CONCLUSION: Patchy infiltrates are noted within the left mid and lower lung field and streakiness is noted within the right lung base consistent with atelectasis and/ or pneumonia. Clinical correlation is recommended. Objective Remarks: GENERAL: Patient is 72 yo intubated off sedation. SKIN: Warm and dry. HEAD: Normocephalic. EYES: No scleral icterus. No injection or drainage. NECK: Supple, trachea midline. No JVD or lymphadenopathy. CARDIOVASCULAR: Regular rate and rhythm without murmurs, gallops, or rubs. RESPIRATORY: Breath sounds equal bilaterally. No accessory muscle use. GASTROINTESTINAL: Abdomen soft, non-tender, nondistended. MUSCULOSKELETAL: No cyanosis, or edema. Neuro: Intubated Assessment and Plan - Assessment and Plan Plan: Plan by systems: Neurologic: Alcohol dependence Alcohol withdrawal Seizure disorder with active seizures- improving. Medication noncompliance Acute combined toxic and metabolic encephalopathy- resolving. Frequent neurochecks On Diprivan infusion for sedation. Daily sedation vacation. Continue with Keppra per Neuro EEG 05/26: negative for ictal activity. generalized slowing. Repeat EEG ordered on 05/29 in view of tremors noted in right upper extremity. Neurology consult noted. [facility] protocol On thiamine and multivitamins Head CT negative for acute disease 05/25. MRI brain: Remote left temporal infarct, atrophy 05/27 Respiratory: Acute hypoxic and hypercarbic respiratory failure Vent bundle Head of bed elevated Continue with vent support keep sats >92% Bronchodilators, SBT daily as cassy. CXR 06/04: Patchy infiltrates b/l Cardiovascular: Monitor HR and BP keep MAP>65mmHg Renal: urinary retention - no indication for tubbs. straight cath q6h. Monitor renal function. I/O's, electrolytes replacement per protocol Diurese with Bumex 1mg x1 FEN/GI: Alcoholic cirrhosis Acute protein calorie malnutritionsevere Severe hypokalemia- resolving. Acute intravascular volume depletion- resolving. Hyponatremia- resolved Dehydration- resolving. ICU electrolyte protocol tube feeds: On Jevity 1.5@60ml/hr ID: UTI noted. Urine cx: Kleb pneumonia on 05/29 Continue Aztreonam and Vanco, Pancultured 06/04 ( Blood, Sputum, Urine) ID eval Heme: Monitor CBC, s/p transfuse 2u PRBC 06/04. Guaiac stool for Heme Endocrine: Hyperglycemia of critical illness -- SSI Prophylaxis: GI Prophylaxis Pepcid DVT Prophylaxis -- SCDs Lovenox held for anemia requiring blood transfusion Lines: Peripheral IVs Tubbs Palliative care is following Dispo: Level 3
[2018-06-05] MEDS: Chlorhexidine 0.12% Oral Kit 15 ML UDC OROPHARYNG SCH ×2 (09:29→20:45)
[2018-06-05] MEDS: Senna/Docusate Sodium 8.6/50 MG Tablet PO SCH ×2 (09:29→20:46)
[2018-06-05] MEDS: Famotidine PF Inj 20 MG/2 ML Vial IV.PUSH SCH ×2 (09:29→20:46)
--- NOTE | 2018-06-05 11:36 | MB ---
cc: Logan Bui MD DATE: 06/05/2018 REQUESTING PHYSICIAN: Dr. Ramachandran. REASON FOR VISIT: Fevers, pneumonia, worsening leukocytosis. HISTORY OF PRESENT ILLNESS: This is a 72-year-old male who was brought to the emergency department after he was found to be having grand mal seizures. The patient was intubated and admitted to the intensive care unit. He has been undergoing treatment for the seizures. He is currently awake with his eyes open, but is intubated and I am unable to get any information from him. Information is obtained from the medical record. The patient has increased white blood cell count and a fever. His temperature spiked up to 101.5 degrees this morning. Yesterday, he had also a temperature max of 101.7. Sputum cultures were taken and the results are pending. Urine culture was also taken as well and the result is pending. The patient had a previous urine culture on 05/29/2018 which came back with Klebsiella pneumoniae. He is reported to have had copious endotracheal secretions yesterday, but it is noted to have improved today. The white count is up to 17.2, which is the highest since admission. Chest x-ray shows patchy infiltrate in the left mid and lower lung field. He also has right lung base streakiness consistent with atelectasis or pneumonia. The patient is noted to have become very agitated last night after sedation was lifted. Currently, he is calm. He is on CPAP. MRI of the head, which was performed on 05/27/2018 revealed secretions in the nasopharynx and left sphenoid sinus and left ethmoid air cell mucosal thickening and opacification. He was also noted to have atrophy and a remote left temporal infarct with encephalomalacia. The patient was previously on Macrobid. PAST MEDICAL HISTORY: Multiple strokes, seizure disorder, alcoholic liver disease. ALLERGIES: UNKNOWN. MEDICATIONS: 1. Aztreonam. 2. Vancomycin. 3. Potassium. 4. Lactulose. 5. Keppra. SOCIAL HISTORY: Positive alcohol use. Past history of illicit drug abuse. No tobacco use. The patient lives with his daughter, who took care of him at home. FAMILY HISTORY: Unable to obtain. REVIEW OF SYSTEMS: Unable to obtain. PHYSICAL EXAMINATION: GENERAL: This is a thin, frail-appearing male who is on the ventilator. He has his eyes open. Not following commands. VITAL SIGNS: BP 124/72, heart rate 119, respiration per ventilator. HEENT: Head is atraumatic. Bitemporal wasting. Extraocular movements appear grossly intact. No icterus. Oropharynx intubated. NECK: Supple without adenopathy. LUNGS: Rhonchi at both bases. HEART: Regular S1 and S2. No murmurs heard. ABDOMEN: Bowel sounds present. Soft, no tenderness appreciated. RECTAL: Not performed. : Normal genitalia. EXTREMITIES: No clubbing or cyanosis. 1+ edema of the left hand. SKIN: No diffuse rash. NEUROLOGIC: Unable to assess. PSYCHIATRIC: Unable to assess. LABORATORY DATA: WBC 17.2, 84% neutrophils, platelet count 500, hemoglobin 9.8, creatinine 0.85, BUN 29, sodium 145, AST 62, ALT 22, alkaline phosphatase 326. IMPRESSION: 1. Pneumonia, likely health-care acquired. The patient is status post seizure and may have aspirated. 2. Leukocytosis. 3. Acute respiratory failure. 4. Urinary tract infection with Klebsiella. Repeat urine culture is pending. 5. Seizure disorder. RECOMMENDATIONS: 1. Continue aztreonam. 2. Continue vancomycin. 3. Monitor sputum culture. 4. Monitor blood culture. 5. Monitor urine culture. 6. Monitor temperature and white blood cell count and clinical response. Thank you for this consultation. Further recommendations will be given upon followup and clinical course. Logan Bui MD [facility]/DL , 10:56 AM , 11:14 AM
[2018-06-05] MEDS ORDERED: Vancomycin Consult Pharmacy 1 EACH OTHER SCH (12:00)
[2018-06-05 14:35] LABS: ABG Base Excess 4.8 mmol/L (-2-2); ABG PCO2 33 mmHg (38-42); ABG PO2 77 mmHG (61-120)
--- NOTE | 2018-06-05 15:39 | P.PNPAL ---
Reason for Visit Reason for visit: a. To assist with evaluation and management of symptoms including: confusion, dyspnea, weakness b. To assist medical decision maker(s) with: better understanding of current medical conditions; weighing benefits/burdens of medical treatment options; making medical treatment decisions. Subjective Subjective/Interval History: Pt seen around 1200 Pt resting in bed, still intubated on vent. operations supervisor 2nd shift noted increased respiratory rate and he is now on propofol 1.61ml /hr. CPAP trials continue. CXR with patchy infiltrates left lung, streakiness in right lung base consistent with atelectasis and/or PNA. ID consulted, suspect HCAP. WBC trending up, 17.2 today. Pt is lethargic on my eval. He did open eyes to his name but was not following commands. Neuro feels pt will return to neurological baseline. Hgb dropped to 6.5, now s/p 2 xPRBC. ----- Addendum, met with son @ bedside 1615. Pt extubated around 1515. Awake, tachypneic but otherwise does not appear distressed. "Juanjose." Family/Friend Interactions: Spoke with son @ bedside & hallway. - provided brief medical update - encouraged family discussions about medical decisions, code status and DNR when pt able to do so - provided emotional support - son expressed gratitude for palliative follow up and requested continued follow up Advance Directives Health Care Surrogate Name and Number: Carlos Alberto Barnett [phone]; Amber Anibal [phone], Objective Vital Signs: Vital Signs 06/04/18 16:00 06/04/18 16:06 06/04/18 17:00 Temperature 99.4 F 99.5 F Pulse Rate 99 H 98 H 107 H Respiratory Rate 22 24 28 H Blood Pressure 113/63 113/63 156/87 H Pulse Oximetry 99 98 98 06/04/18 18:00 06/04/18 19:00 06/04/18 20:00 Temperature 98.8 F Pulse Rate 103 H 101 H 102 H Respiratory Rate 25 H 24 23 Blood Pressure 111/62 107/61 118/66 Pulse Oximetry 99 99 98 06/04/18 20:08 06/04/18 20:10 06/04/18 21:00 Temperature Pulse Rate 102 H 106 H Respiratory Rate 28 H 28 H 23 Blood Pressure 122/62 Pulse Oximetry 100 96 06/04/18 22:00 06/04/18 23:00 06/04/18 23:42 Temperature Pulse Rate 108 H 110 H 113 H Respiratory Rate 25 H 25 H 30 H Blood Pressure 117/69 118/65 Pulse Oximetry 93 L 94 L 96 06/05/18 00:00 06/05/18 01:00 06/05/18 02:00 Temperature 99 F Pulse Rate 113 H 122 H 125 H Respiratory Rate 25 H 32 H 31 H Blood Pressure 126/72 128/68 Pulse Oximetry 96 93 L 95 06/05/18 02:01 06/05/18 02:16 06/05/18 03:00 Temperature Pulse Rate 125 H 107 H 114 H Respiratory Rate 31 H 29 H 28 H Blood Pressure 138/69 124/72 128/62 Pulse Oximetry 95 96 96 06/05/18 03:35 06/05/18 04:00 06/05/18 05:00 Temperature 101.5 F H Pulse Rate 118 H 118 H 119 H Respiratory Rate 29 H 35 H 25 H Blood Pressure 127/71 117/66 Pulse Oximetry 100 94 L 94 L 06/05/18 06:00 06/05/18 07:00 06/05/18 07:35 Temperature Pulse Rate 116 H 115 H 113 H Respiratory Rate 29 H 19 28 H Blood Pressure 103/57 L 98/59 L Pulse Oximetry 93 L 94 L 98 06/05/18 08:00 06/05/18 09:00 06/05/18 10:00 Temperature Pulse Rate 115 H 117 H 119 H Respiratory Rate 29 H 29 H 29 H Blood Pressure 107/66 114/72 124/72 Pulse Oximetry 95 96 97 06/05/18 11:00 06/05/18 12:00 06/05/18 12:04 Temperature Pulse Rate 116 H 116 H 115 H Respiratory Rate 29 H 30 H 26 H Blood Pressure 123/68 116/63 Pulse Oximetry 96 97 98 Intake & Output 06/04/18 06/05/18 06/05/18 18:59 06:59 18:59 Intake Total 1226 / 1226 1406 / 1406 Output Total 800 / 800 200 / 200 Balance 426 / 426 1206 / 1206 Weight 57 kg Intake: IV 550 / 550 550 / 550 Diprivan 1000 mg/100 ml Inj 1, 100 / 100 000 mg In 100 ml @ 5 MCG/KG/MIN 1.606 mls/hr IV.CONT TITRATE PRN Rx#:[id number] Azactam Inj 1,000 MG In NS Inj 100 / 100 200 / 200 100 ML @ 200 mls/hr IV.SIG Q8H [facility] Rx#:[id number] Magnesium Sulfate Inj 2 GM In 0 / 0 NS Inj 96 ML @ 50 mls/hr IV.SIG UNSCH PRN Rx#:[id number] Vancomycin Inj 1,000 MG In NS 250 / 250 250 / 250 Inj 250 ML @ 250 mls/hr IV.SIG Q12H [facility] Rx#:[id number] Keppra 1000 mg/100 mL Premix 100 / 100 100 / 100 100 ML @ 400 mls/hr IV.SIG Q12H [facility] Rx#:[id number] Tube Feeding 556 / 556 796 / 796 Water Bolus Amount 60 / 60 60 / 60 Other 60 / 60 Rbc As-3 Leukoreduced Unit 60 / 60 [id number] Intake (Blood Product) Amt 0 / 0 Rbc As-3 Leukoreduced Unit 0 / 0 [id number] Rbc As-3 Leukoreduced Unit 0 / 0 [id number] Output: Urine Amount (Catheter) 800 / 800 200 / 200 Condom 200 / 200 Straight 800 / 800 Other: Other Intake Source Rbc As-3 Leukoreduced Unit Saline Solution [id number] Date of Last Bowel Movement 06/03/18 06/03/18 06/03/18 # Bowel Movements 1 Physical Exam: CONSTITUTIONAL/GENERAL: cachectic TUBES/LINES/DRAINS: ET tube, NGT, tubbs, PIV SKIN: No jaundice, rashes, or lesions. No wounds seen anteriorly. Skin temperature appropriate. Not diaphoretic. HEAD: Atraumatic. Normocephalic. EYES: Right pupil reactive, left pupil oval shaped and fixed. eyes glassy. Fundi not examined. ENT: Nose without bleeding or purulent drainage. Throat exam limited by ET tube. NECK: Trachea midline. CARDIOVASCULAR: RRR, no gallops, or rubs. RESPIRATORY/CHEST: Symmetric, unlabored respirations. diminished GASTROINTESTINAL: Abdomen soft, nondistended. No hepato-splenomegaly, or palpable masses. Bowel sounds present. GENITOURINARY: Without palpable bladder distension. Tubbs catheter in place. MUSCULOSKELETAL: no clubbing or cyanosis NEUROLOGICAL: opens eyes to verbal stimuli, more lethargic today PSYCHIATRIC: unable to assess 2/2 mental status, ET tube Diagnostic Tests Laboratory: Laboratory Results - last 72 hr 06/02/18 06/03/18 06/03/18 17:47 00:12 05:00 WBC RBC Hgb Hct MCV MCH MCHC RDW Plt Count MPV Prelim Diff (Auto) Neut % (Auto) Lymph % (Auto) [place] % (Auto) Eos % (Auto) Baso % (Auto) Neut # (Auto) Lymph # (Auto) [place] # (Auto) Eos # (Auto) Baso # (Auto) WBC Differential Seg Neuts % (Manual) Band Neuts % (Manual) Lymphocytes % (Manual) Monocytes % (Manual) Myelocytes % (Man) Abs Neuts (Manual) Differential Comment Platelet Estimate Platelet Morphology Puncture Site Patient Temperature O2 Saturation ABG pH ABG pCO2 ABG pO2 ABG HCO3 ABG O2 Content ABG Base Excess ABG Methemoglobin Jim Test Hemoglobin Carboxyhemoglobin O2 Delivery Device Vent Setting Inspired O2 Critical Value Sodium Potassium Chloride Carbon Dioxide Anion Gap BUN Creatinine Estimated GFR POC Glucose 184 H 131 H 208 H Random Glucose Calcium Total Bilirubin AST ALT Alkaline Phosphatase Total Protein Albumin Urine Color Urine Clarity Urine pH Ur Specific [place] Urine Protein Urine Glucose (UA) Urine Ketones Urine Occult Blood Urine Nitrate Urine Bilirubin Urine Urobilinogen Ur Leukocyte Esterase Urine WBC Ur Squamous Epith Cells Urine Bacteria Micro UA Comment Urine Culture Comments Blood Type Antibody Screen MTS Gel Crossmatch 06/03/18 06/03/18 06/03/18 11:31 17:38 23:27 WBC RBC Hgb Hct MCV MCH MCHC RDW Plt Count MPV Prelim Diff (Auto) Neut % (Auto) Lymph % (Auto) [place] % (Auto) Eos % (Auto) Baso % (Auto) Neut # (Auto) Lymph # (Auto) [place] # (Auto) Eos # (Auto) Baso # (Auto) WBC Differential Seg Neuts % (Manual) Band Neuts % (Manual) Lymphocytes % (Manual) Monocytes % (Manual) Myelocytes % (Man) Abs Neuts (Manual) Differential Comment Platelet Estimate Platelet Morphology Puncture Site Patient Temperature O2 Saturation ABG pH ABG pCO2 ABG pO2 ABG HCO3 ABG O2 Content ABG Base Excess ABG Methemoglobin Jim Test Hemoglobin Carboxyhemoglobin O2 Delivery Device Vent Setting Inspired O2 Critical Value Sodium Potassium Chloride Carbon Dioxide Anion Gap BUN Creatinine Estimated GFR POC Glucose 162 H 102 142 H Random Glucose Calcium Total Bilirubin AST ALT Alkaline Phosphatase Total Protein Albumin Urine Color Urine Clarity Urine pH Ur Specific [place] Urine Protein Urine Glucose (UA) Urine Ketones Urine Occult Blood Urine Nitrate Urine Bilirubin Urine Urobilinogen Ur Leukocyte Esterase Urine WBC Ur Squamous Epith Cells Urine Bacteria Micro UA Comment Urine Culture Comments Blood Type Antibody Screen MTS Gel Crossmatch 06/04/18 06/04/18 06/04/18 03:00 03:00 05:57 WBC 15.1 H RBC 2.16 L Hgb 6.9 L* Hct 21.8 L MCV 101.3 H MCH 32.1 MCHC 31.7 L RDW 20.0 H Plt Count 520 H D MPV 8.6 Prelim Diff (Auto) Slide review pending Neut % (Auto) 83.9 H Lymph % (Auto) 8.2 L [place] % (Auto) 6.2 Eos % (Auto) 0.7 Baso % (Auto) 1.0 Neut # (Auto) 12.7 H Lymph # (Auto) 1.2 [place] # (Auto) 0.9 Eos # (Auto) 0.1 Baso # (Auto) 0.2 WBC Differential Manual diff final Seg Neuts % (Manual) 68 Band Neuts % (Manual) 15 H Lymphocytes % (Manual) 10 Monocytes % (Manual) 5 Myelocytes % (Man) 2 H Abs Neuts (Manual) 12.8 H Differential Comment . Platelet Estimate High H Platelet Morphology Normal Puncture Site Patient Temperature O2 Saturation ABG pH ABG pCO2 ABG pO2 ABG HCO3 ABG O2 Content ABG Base Excess ABG Methemoglobin Jim Test Hemoglobin Carboxyhemoglobin O2 Delivery Device Vent Setting Inspired O2 Critical Value Sodium 144 Potassium 3.9 Chloride 105 Carbon Dioxide 27.1 Anion Gap 12 BUN 29 H Creatinine 0.80 Estimated GFR Greater than 89 POC Glucose 165 H Random Glucose 102 Calcium 8.7 Total Bilirubin 0.6 AST 65 H ALT 24 Alkaline Phosphatase 297 H Total Protein 6.3 L Albumin 1.3 L Urine Color Urine Clarity Urine pH Ur Specific [place] Urine Protein Urine Glucose (UA) Urine Ketones Urine Occult Blood Urine Nitrate Urine Bilirubin Urine Urobilinogen Ur Leukocyte Esterase Urine WBC Ur Squamous Epith Cells Urine Bacteria Micro UA Comment Urine Culture Comments Blood Type Antibody Screen MTS Gel Crossmatch 06/04/18 06/04/1806/04/18 08:00 09:50 11:58 WBC 14.5 H RBC 1.94 L Hgb 6.5 L* Hct 19.2 L* MCV 99.0 MCH 33.5 MCHC 33.9 RDW 20.0 H Plt Count 498 H MPV 8.4 Prelim Diff (Auto) Auto diff final Neut % (Auto) 81.4 H Lymph % (Auto) 9.7 [place] % (Auto) 8.1 H Eos % (Auto) 0.5 Baso % (Auto) 0.3 Neut # (Auto) 11.8 H Lymph # (Auto) 1.4 [place] # (Auto) 1.2 H Eos # (Auto) 0.1 Baso # (Auto) 0.0 WBC Differential . Seg Neuts % (Manual) Band Neuts % (Manual) Lymphocytes % (Manual) Monocytes % (Manual) Myelocytes % (Man) Abs Neuts (Manual) Differential Comment . Platelet Estimate Platelet Morphology Puncture Site Patient Temperature O2 Saturation ABG pH ABG pCO2 ABG pO2 ABG HCO3 ABG O2 Content ABG Base Excess ABG Methemoglobin Jim Test Hemoglobin Carboxyhemoglobin O2 Delivery Device Vent Setting Inspired O2 Critical Value Sodium Potassium Chloride Carbon Dioxide Anion Gap BUN Creatinine Estimated GFR POC Glucose 163 H Random Glucose Calcium Total Bilirubin AST ALT Alkaline Phosphatase Total Protein Albumin Urine Color Urine Clarity Urine pH Ur Specific [place] Urine Protein Urine Glucose (UA) Urine Ketones Urine Occult Blood Urine Nitrate Urine Bilirubin Urine Urobilinogen Ur Leukocyte Esterase Urine WBC Ur Squamous Epith Cells Urine Bacteria Micro UA Comment Urine Culture Comments Blood Type O Positive Antibody Screen Negative MTS Gel Crossmatch See Detail 06/04/18 06/04/18 06/04/18 16:13 17:00 23:55 WBC RBC Hgb Hct MCV MCH MCHC RDW Plt Count MPV Prelim Diff (Auto) Neut % (Auto) Lymph % (Auto) [place] % (Auto) Eos % (Auto) Baso % (Auto) Neut # (Auto) Lymph # (Auto) [place] # (Auto) Eos # (Auto) Baso # (Auto) WBC Differential Seg Neuts % (Manual) Band Neuts % (Manual) Lymphocytes % (Manual) Monocytes % (Manual) Myelocytes % (Man) Abs Neuts (Manual) Differential Comment Platelet Estimate Platelet Morphology Puncture Site Patient Temperature O2 Saturation ABG pH ABG pCO2 ABG pO2 ABG HCO3 ABG O2 Content ABG Base Excess ABG Methemoglobin Jim Test Hemoglobin Carboxyhemoglobin O2 Delivery Device Vent Setting Inspired O2 Critical Value Sodium Potassium Chloride Carbon Dioxide Anion Gap BUN Creatinine Estimated GFR POC Glucose 108 159 H Random Glucose Calcium Total Bilirubin AST ALT Alkaline Phosphatase Total Protein Albumin Urine Color Yellow Urine Clarity Clear Urine pH 7.0 Ur Specific [place] 1.010 Urine Protein Negative Urine Glucose (UA) Negative Urine Ketones Negative Urine Occult Blood Negative Urine Nitrate Negative Urine Bilirubin Negative Urine Urobilinogen 4 or greater Ur Leukocyte Esterase Negative Urine WBC 1 Ur Squamous Epith Cells <1 Urine Bacteria Rare H Micro UA Comment Cath-culture ind Urine Culture Comments Cath-cult indicated Blood Type Antibody Screen MTS Gel Crossmatch 06/05/18 06/05/18 06/05/18 00:25 06:13 06:13 WBC 17.2 H RBC 3.05 L Hgb 11.0 L D 9.8 L Hct 31.7 L 28.7 L MCV 94.1 D MCH 32.1 MCHC 34.2 RDW 19.7 H Plt Count 500 H MPV 8.4 Prelim Diff (Auto) Neut % (Auto) 84.7 H Lymph % (Auto) 7.1 L [place] % (Auto) 6.9 Eos % (Auto) 0.3 Baso % (Auto) 1.0 Neut # (Auto) 14.6 H Lymph # (Auto) 1.2 [place] # (Auto) 1.2 H Eos # (Auto) 0.1 Baso # (Auto) 0.2 WBC Differential . Seg Neuts % (Manual) Band Neuts % (Manual) Lymphocytes % (Manual) Monocytes % (Manual) Myelocytes % (Man) Abs Neuts (Manual) Differential Comment Auto diff final Platelet Estimate Platelet Morphology Puncture Site Patient Temperature O2 Saturation ABG pH ABG pCO2 ABG pO2 ABG HCO3 ABG O2 Content ABG Base Excess ABG Methemoglobin Jim Test Hemoglobin Carboxyhemoglobin O2 Delivery Device Vent Setting Inspired O2 Critical Value Sodium 145 Potassium 3.4 L Chloride 108 H Carbon Dioxide 25.1 Anion Gap 12 BUN 29 H Creatinine 0.85 Estimated GFR 88 L POC Glucose Random Glucose 131 H Calcium 8.4 L Total Bilirubin 0.8 AST 62 H ALT 22 Alkaline Phosphatase 326 H Total Protein 6.3 L Albumin 1.4 L Urine Color Urine Clarity Urine pH Ur Specific [place] Urine Protein Urine Glucose (UA) Urine Ketones Urine Occult Blood Urine Nitrate Urine Bilirubin Urine Urobilinogen Ur Leukocyte Esterase Urine WBC Ur Squamous Epith Cells Urine Bacteria Micro UA Comment Urine Culture Comments Blood Type Antibody Screen MTS Gel Crossmatch 06/05/18 06/05/18 06:22 14:19 WBC RBC Hgb Hct MCV MCH MCHC RDW Plt Count MPV Prelim Diff (Auto) Neut % (Auto) Lymph % (Auto) [place] % (Auto) Eos % (Auto) Baso % (Auto) Neut # (Auto) Lymph # (Auto) [place] # (Auto) Eos # (Auto) Baso # (Auto) WBC Differential Seg Neuts % (Manual) Band Neuts % (Manual) Lymphocytes % (Manual) Monocytes % (Manual) Myelocytes % (Man) Abs Neuts (Manual) Differential Comment Platelet Estimate Platelet Morphology Puncture Site Right radial Patient Temperature 98.6 O2 Saturation 94 ABG pH 7.54 H* ABG pCO2 33 L ABG pO2 77 ABG HCO3 28 H ABG O2 Content 17.0 ABG Base Excess 4.8 H ABG Methemoglobin 1.1 Jim Test + Hemoglobin 12.9 Carboxyhemoglobin 1.5 O2 Delivery Device Ventilator Vent Setting Cpap 5/10 ps Inspired O2 30 Critical Value Yes Sodium Potassium Chloride Carbon Dioxide Anion Gap BUN Creatinine Estimated GFR POC Glucose 163 H Random Glucose Calcium Total Bilirubin AST ALT Alkaline Phosphatase Total Protein Albumin Urine Color Urine Clarity Urine pH Ur Specific [place] Urine Protein Urine Glucose (UA) Urine Ketones Urine Occult Blood Urine Nitrate Urine Bilirubin Urine Urobilinogen Ur Leukocyte Esterase Urine WBC Ur Squamous Epith Cells Urine Bacteria Micro UA Comment Urine Culture Comments Blood Type Antibody Screen MTS Gel Crossmatch Result Diagrams: 06/05/18 06:13 06/05/18 06:13 Microbiology: Microbiology 06/04/18 11:10 Gram Stain - Final Sputum - Endotracheal Sputum Culture - Preliminary Immature growth - reincubate 06/04/18 17:00 Urine Culture - Preliminary Catheterized Urine No growth in 24 hours 06/04/18 09:50 Aerobic Blood Culture - Preliminary Blood - Peripheral No growth in 1 day Anaerobic Blood Culture - Preliminary No growth in 1 day Imaging: ITS Impressions Head CT 05/25/18 15:22 CONCLUSION: Chronic small vessel ischemic and atrophic changes. Head MRI 05/27/18 00:00 CONCLUSION: 1. Atrophy, white matter disease and remote left temporal infarct with encephalomalacia. Chest X-Ray 06/04/18 09:56 CONCLUSION: Patchy infiltrates are noted within the left mid and lower lung field and streakiness is noted within the right lung base consistent with atelectasis and/ or pneumonia. Clinical correlation is recommended. 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 Has had multiple business none of which lasted 2/2 his drinking. . Has 10 kids. Originally from [place], grew up in [place], has been in [place] for 40 y. Lives with one of his daughters. Some of his children are local. Spiritual: Holiness non-rastafarian, daughter requests health education teacher visit Legal: Pt has been incapacitated to make medical decisions. recently extubated. [facility] completed 02/13/17 Amber Sellers. AT this time recommend shared decision making. Ethical issues impacting care: none identified Important Contacts: Carlos Alberto Barnett, son/primary HCS: [phone] Amber Barnett daughter/alternate HCS: [phone] or [phone] Prognosis: 72 yo male with seizure disorder since head injury 5 y ago, noncompliance with seizure meds, 50 year hx drinking up to or more than a gallon of wine daily admitted 05/25 after having seizure like activity, intubated in the field. Neuro status gradually improving since being off sedation. Now extubated. He appears cachectic and malnourished. His poor nutrition status makes full physical recovery unlikely. He is likely to continue having complications such as seizures d/t noncompliance, episodes of withdrawal, falls. Even if he improves enough for medical extubation and rehab, he will likely continue to drink and to decline. Code Status: Alternative Code (intubation only) Plan: - LEGAL DECISON MAKER - Pt has been incapacitated to make medical decisions. recently extubated, may regain capacity. [facility] completed 02/13/17 Amber Sellers. AT this time recommend shared decision making. - CODE STATUS- alternate code; intubation only. - GOALS - Primary [facility] Carlos Alberto expressing aggressive goals short of alt code no CPR/shocks/ACLS drugs, no tracheostomy. While [facility] Carlos Alberto acknowledges that his father will inevitably return to drinking and is going to continue to decline, Carlos Alberto would like for pt to go to rehab or home with home health after hospital . Carlos Alberto was receptive to hospice discussion but did not feel pt was ready for this. Amber secondary HCS is in touch with other siblings and previously communicated less aggressive goals, "his casket is picked out." - SYMPTOMS - * dyspnea - intubated in field, now on mech vent. pt just extubated. tachypneic. on 4L NC. Has PRN and scheduled duonebs. * confusion - multifactorial, long hx etoh abuse, seizure disorder, head injury. ?withdrawal vs seizures vs both? EEG 05/26 showing encephalopathy, no seizure activity. NH elevated 40, ?component hepatic encephalopathy? TSH 0.298L. now extubated. awake, limited speech but is appropriate. "Juanjose." Neurology following, poss prolonged post-ictal state, continue keppra, hold all sedation. Neuro feels pt can recover to neurological baseline. levaquin changed to nitrofurantoin per neuro rec. * weakness/debility - pt with 9 days on mech vent, bed bound. He is already malnourished with his heavy etoh consumption. albumin 1.4. It is unlikely he will return to his physical baseline. with aggressive goals, would benefit from PT, OT, as soon as possible. - Son requesting, physical therapy and rehab or home health - Palliative care will continue to follow during hospital course as condition evolves, to assist patient/decision-maker with understanding of medical conditions, weighing benefits/burdens of treatment options, for clarification of goals of treatment. Additionally will assist with any symptoms of palliative concern Attestation Attestation: To help prompt me to consider important information that might be impacting today's encounter and assessment, information from prior notes written by myself or my colleagues may have been "brought forward" into today's note. My signature on this note, however, is an attestation that I personally performed the exam, history, and/or decision-making noted today, and, unless otherwise indicated, the interactions with patient, family, and staff as well as the review of records all occurred today. I also attest that the listed assessment and stated plan reflect my best clinical judgment today based on the combination of historical information, prior notes, and today's exam/ interactions. When time spent is documented, it refers only to time spent today by the signer, or if indicated, combined time spent today by collaborating physician/nurse practitioner.
[2018-06-05] MEDS: Vancomycin Inj 750 MG in Sodium Chlor 0.9% Inj 250 ML IV.SIG SCH (18:09)
[2018-06-06] MEDS: Oral Hygiene Kit OROPHARYNG SCH ×4 (01:32→23:16)
[2018-06-06] MEDS: levETIRAcetam 1000mg/100mL Inj 100 ML IV.SIG SCH ×2 (01:32→13:20)
[2018-06-06] MEDS ORDERED: Pharmacy Ordered Lab Info OTHER ONE (01:45)
[2018-06-06] MEDS: Vancomycin Inj 750 MG in Sodium Chlor 0.9% Inj 250 ML IV.SIG SCH (02:27)
--- NOTE | 2018-06-06 07:10 | P.PNCC ---
Subjective Subjective Remarks/Hospital Course: Hospital Course: This is a 72-year-old male with a history of alcoholic cirrhosis and seizure disorder who presents with ongoing active grand mal seizures. He was altered in the field and unable to participate airway and was intubated in the field. No additional information is available from the patient. In the emergency department he was hypotensive requiring IV fluid boluses. Laboratory evidence is remarkable for an undetectable phenytoin level in a patient on chronic Dilantin therapy. Review of systems is unavailable due to the clinical condition of the patient. subjective: 05/26: EEG without ictal activity. phenytoin level now therapeutic. patient wakes and follows commands. will wean mechanical ventilation. however, etoh withdraw persists, and CAM+, so may be very difficult to extubate successfully. 05/27: no improvement in mental status. awakens and moves all extremities but does not follow commands. dilantin level slightly elevated this AM. will hold next dose and decrease future doses. ordered MRI to eval for ischemia. Son is the medical decision-maker and wants aggressive goals. daughter is "alternate" [id number] and was asking about hospice. 05/28: Remains sedated, orally intubated on mechanical ventilation. 2: Remains encephalopathic, sedated, orally intubated on mechanical ventilation. Tremors in right upper extremity. 83: Remains encephalopathic, orally intubated on mechanical ventilation. Neuro consult noted. 05/31: Remains encephalopathic, orally intubated on mechanical ventilation. Tolerating tube feeds. 06/01: Remains encephalopathic, orally intubated on mechanical ventilation. Tolerating tube feeds. Not awake enough for extubation. Daily CPAP trials ongoing. 06/02: Remains encephalopathic. Occasionally eye opening noted. Not following commands. Remains orally intubated on mechanical ventilation. Tolerating tube feeds. 06/03: Remains encephalopathic. Orally intubated on mechanical ventilation. Neuro status gradually improving. Levaquin being switched to Macrobid for UTI 06/04 No events overnight. On no sedation. T:100.5 yesterday. Hgb 6.5 this morning. 06/05 Patient was started on Diprivan overnight for sedation. s/p transfusion 2u PRBC yesterday. Had T:101.5 at 4 am. 06/06 Patient was extubated yesterday on 3L oxygen. Afebrile. Objective Vital Signs / I&O: Vital Signs 06/05/18 07:35 06/05/18 08:00 06/05/18 09:00 Temperature Pulse Rate 113 H 115 H 117 H Respiratory Rate 28 H 29 H 29 H Blood Pressure 107/66 114/72 Pulse Oximetry 98 95 96 06/05/18 10:00 06/05/18 11:00 06/05/18 12:00 Temperature Pulse Rate 119 H 116 H 116 H Respiratory Rate 29 H 29 H 30 H Blood Pressure 124/72 123/68 116/63 Pulse Oximetry 97 96 97 06/05/18 12:04 06/05/18 13:00 06/05/18 14:00 Temperature Pulse Rate 115 H 119 H 121 H Respiratory Rate 26 H 25 H 23 Blood Pressure 114/67 148/79 H Pulse Oximetry 98 97 98 06/05/18 15:00 06/05/18 16:00 06/05/18 16:02 Temperature Pulse Rate 124 H 118 H 118 H Respiratory Rate 40 H 31 H 33 H Blood Pressure 154/75 H 110/57 L Pulse Oximetry 100 97 98 06/05/18 16:10 06/05/18 17:00 06/05/18 18:00 Temperature Pulse Rate 117 H 114 H 113 H Respiratory Rate 22 29 H 33 H Blood Pressure 106/58 L 119/72 Pulse Oximetry 98 100 06/05/18 19:00 06/05/18 19:33 06/05/18 20:00 Temperature 98.7 F Pulse Rate 114 H 117 H 117 H Respiratory Rate 29 H 22 37 H Blood Pressure 105/56 L 118/31 L Pulse Oximetry 92 L 97 95 06/05/18 22:00 06/06/18 00:00 06/06/18 00:04 Temperature 98.7 F Pulse Rate 112 H 100 H 103 H Respiratory Rate 26 H 22 Blood Pressure 96/56 L Pulse Oximetry 95 94 L 06/06/18 02:00 06/06/18 04:00 06/06/18 06:00 Temperature 98.7 F Pulse Rate 102 H 101 H 100 H Respiratory Rate 26 H Blood Pressure 134/73 Pulse Oximetry 94 L Intake & Output 06/05/18 06/06/18 06/06/18 18:59 06:59 18:59 Intake Total 200 / 200 300 / 300 Output Total 500 / 500 Balance 200 / 200 -200 / -200 Weight 56 kg Intake: IV 200 / 200 300 / 300 Azactam Inj 1,000 MG In NS Inj 100 / 100 200 / 200 100 ML @ 200 mls/hr IV.SIG Q8H ALPHONSE Rx#:[id number] Keppra 1000 mg/100 mL Premix 100 / 100 100 / 100 100 ML @ 400 mls/hr IV.SIG Q12H ALPHONSE Rx#:[id number] Output: Urine Amount (Catheter) 500 / 500 Condom 500 / 500 Other: # Voids 3 Date of Last Bowel Movement 06/03/18 06/03/18 Result Diagrams: 06/05/18 06:13 06/05/18 17:46 Other Results: Laboratory Results - last 12 hr 06/05/18 06/06/18 06/06/18 23:52 02:05 06:15 POC Glucose 115 H 96 Vancomycin Trough 8.1 Imaging: Head CT 05/25/18 15:22 CONCLUSION: Chronic small vessel ischemic and atrophic changes. Head MRI 05/27/18 00:00 CONCLUSION: 1. Atrophy, white matter disease and remote left temporal infarct with encephalomalacia. Chest X-Ray 06/04/18 09:56 CONCLUSION: Patchy infiltrates are noted within the left mid and lower lung field and streakiness is noted within the right lung base consistent with atelectasis and/ or pneumonia. Clinical correlation is recommended. Objective Remarks: GENERAL: Patient is 72 yo lying in bed in NAD SKIN: Warm and dry. HEAD: Normocephalic. EYES: No scleral icterus. No injection or drainage. NECK: Supple, trachea midline. No JVD or lymphadenopathy. CARDIOVASCULAR: Regular rate and rhythm without murmurs, gallops, or rubs. RESPIRATORY: Breath sounds equal bilaterally. No accessory muscle use. GASTROINTESTINAL: Abdomen soft, non-tender, nondistended. MUSCULOSKELETAL: No cyanosis, or edema. Neuro: Awake. Assessment and Plan - Assessment and Plan Plan: Plan by systems: Neurologic: Alcohol dependence Alcohol withdrawal Seizure disorder with active seizures- improving. Medication noncompliance Acute combined toxic and metabolic encephalopathy- resolving. Frequent neurochecks Continue with Keppra per Neuro EEG 05/26: negative for ictal activity. generalized slowing. Repeat EEG ordered on 05/29 in view of tremors noted in right upper extremity. Neurology consult noted. On thiamine and multivitamins Head CT negative for acute disease 05/25. MRI brain: Remote left temporal infarct, atrophy 05/27 Respiratory: Acute hypoxic and hypercarbic respiratory failure Head of bed elevated Continue with oxygen keep sats >92% Bronchodilators, CXR 06/04: Patchy infiltrates b/l Cardiovascular: Monitor HR and BP keep MAP>65mmHg Renal: urinary retention - no indication for tubbs. straight cath q6h. Monitor renal function. I/O's, electrolytes replacement per protocol FEN/GI: Alcoholic cirrhosis Acute protein calorie malnutritionsevere Severe hypokalemia- resolving. Acute intravascular volume depletion- resolving. Hyponatremia- resolved Dehydration- resolving. ICU electrolyte protocol Speech eval, diet per speech, tube feeds:if kept NPO per speech will resume tube feeds - Jevity 1.5@60ml/hr ID: UTI noted. Urine cx: Kleb pneumonia on 05/29 Continue Aztreonam and Vanco, Pancultured 06/04 ( Blood, Sputum, Urine) ID is following. Heme: Monitor CBC, s/p transfuse 2u PRBC 06/04. Endocrine: Hyperglycemia of critical illness -- SSI Prophylaxis: GI Prophylaxis Pepcid DVT Prophylaxis -- SCDs Lovenox held for anemia requiring blood transfusion Lines: Peripheral IVs Tubbs Palliative care is following Follow up on labs Level 3
[2018-06-06 07:53] LABS: Baso # (Auto) 0.1 th/mm3 (0.0-0.2); Baso % (Auto) 0.8 % (0.0-2.0); Eos # (Auto) 0.1 th/mm3 (0.0-0.4); Eos % (Auto) 0.8 % (0.0-4.0); Hematocrit 28.8 % (39.0-51.0); Hemoglobin 9.5 gm/dL (13.0-17.0); Lymph # (Auto) 1.4 th/mm3 (1.0-4.8); Lymph % (Auto) 8.4 % (9.0-44.0); Mean Corpuscular Hemoglobin 31.7 pg (27.0-34.0); Mean Corpuscular Volume 96.2 fL (80.0-100.0); Mean Platelet Volume 8.8 fL (7.0-11.0); Mono # (Auto) 1.7 th/mm3 (0.0-0.9); Mono % (Auto) 10.5 % (0.0-8.0); Neut % (Auto) 79.5 % (16.0-70.0); Platelet Count 593 th/mm3 (150-450); Red Blood Count 2.99 mil/mm3 (4.50-5.90); Red Cell Distribution Width 19.7 % (11.6-17.2); White Blood Count 16.3 th/mm3 (4.0-11.0)
[2018-06-06 08:01] LABS: Phosphorus 3.9 mg/dL (2.5-4.9)
[2018-06-06 08:02] LABS: Albumin 1.4 g/dL (3.4-5.0); Anion Gap 8 meq/L (5-15); Aspartate Aminotransferase 50 U/L (15-37); Blood Urea Nitrogen 30 mg/dL (7-18); Calcium 8.6 mg/dL (8.5-10.1); Carbon Dioxide 28.3 meq/L (21.0-32.0); Chloride 108 meq/L (98-107); Glomerular Filtration Rate Greater Than 89 mL/min (>89); Glucose,Random 75 mg/dL (74-106); Potassium 3.9 meq/L (3.5-5.1); Sodium 144 meq/L (136-145)
[2018-06-06 08:03] LABS: Alanine Aminotransferase 19 U/L (12-78)
[2018-06-06 08:05] LABS: Alkaline Phosphatase 256 U/L (45-117); Total Protein 6.3 g/dL (6.4-8.2)
[2018-06-06] MEDS: Famotidine PF Inj 20 MG/2 ML Vial IV.PUSH SCH ×2 (08:32→20:02)
[2018-06-06] MEDS: Senna/Docusate Sodium 8.6/50 MG Tablet PO SCH ×2 (08:32→20:03)
--- NOTE | 2018-06-06 10:53 | P.DIET ---
Nutritional Evaluation Type of nutrition evaluation: follow-up Nutrition consult regarding: Tube Feeding Nutrition screening: [facility] [place] Objective - Diagnosis Unresponsive, Breakthrough Seizures - Objective % IBW: 69 (XVG=118#) Body Weight Used for Calculations: IBW (75.5kg) Energy Needs - Lower Range (kCal/kg): 25 Energy Needs - Upper Range (kCal/kg): 30 Lower Limit kCal/kg (kCals): 1,888 Upper Limit kCal/kg (kCals): 2,265 Lower Limit Protein Factor (Grams per Kg): 1.2 Upper Limit Protein Factor (Grams per Kg): 1.5 Lower Protein Needs (Protein): 91 Upper Protein Needs (Protein): 113 Dietitian Reviewed in Medical Record: Curent medications, Intake & Output, Labs , Tube feeding Diet Order: TF Only Objective Comments: Meds: Thiamine Pt was on Dilantin at home, not currently on it Assessment Assessment: Pt continues to be at nutritional risk r/t current clinical status. Pt extubated on 06/05 swallow eval pending. If pt continues to need TF, Jevity 1.5 with goal rate of 60mls/hr as previously ordered. Pt on Dilantin at home but is not currently on it. Reviewed MD notes, Labs, Wts. Will continue to monitor TF, clinical course. Recommendations: Swallow eval pending. If needed: Continue TF Jevity 1.5 @ 60mls/hr. Dietitian to Monitor: Lab values, Electrolytes, Intake & Output, Weight change, Medical course
--- NOTE | 2018-06-06 11:53 | P.PNPAL ---
Reason for Visit Reason for visit: a. To assist with evaluation and management of symptoms including: confusion, dyspnea, weakness b. To assist medical decision maker(s) with: better understanding of current medical conditions; weighing benefits/burdens of medical treatment options; making medical treatment decisions. Subjective Subjective/Interval History: Extubated yesterday afternoon. Pt resting in bed. Lethargic, weak. Audible upper respiratory secretions. Coarse lung sounds on auscultation. Tachypneic. Sat 99% on 2L NC. WBC 16.3 today. Pt failed swallow eval. Family/Friend Interactions: Called [facility] Carlos Alberto to provide medical update and readdress code status in light of continued respiratory difficulties. He says he does not think his father does not want to be intubated again, and would rather be comfortable. Re- introduced hospice and option of transfer to hospice care center but he declined this, "we'll just keep him comfortable here." Advance Directives Health Care Surrogate Name and Number: Carlos Alberto Barnett [phone]; Amber Barnett [phone], Objective Vital Signs: Vital Signs 06/05/18 12:00 06/05/18 12:04 06/05/18 13:00 Temperature Pulse Rate 116 H 115 H 119 H Respiratory Rate 30 H 26 H 25 H Blood Pressure 116/63 114/67 Pulse Oximetry 97 98 97 06/05/18 14:00 06/05/18 15:00 06/05/18 16:00 Temperature Pulse Rate 121 H 124 H 118 H Respiratory Rate 23 40 H 31 H Blood Pressure 148/79 H 154/75 H Pulse Oximetry 98 100 97 06/05/18 16:02 06/05/18 16:10 06/05/18 17:00 Temperature Pulse Rate 118 H 117 H 114 H Respiratory Rate 33 H 22 29 H Blood Pressure 110/57 L 106/58 L Pulse Oximetry 98 98 06/05/18 18:00 06/05/18 19:00 06/05/18 19:33 Temperature Pulse Rate 113 H 114 H 117 H Respiratory Rate 33 H 29 H 22 Blood Pressure 119/72 105/56 L Pulse Oximetry 100 92 L 97 06/05/18 20:00 06/05/18 22:00 06/06/18 00:00 Temperature 98.7 F 98.7 F Pulse Rate 117 H 112 H 100 H Respiratory Rate 37 H 26 H Blood Pressure 118/31 L 96/56 L Pulse Oximetry 95 95 06/06/18 00:04 06/06/18 02:00 06/06/18 04:00 Temperature 98.7 F Pulse Rate 103 H 102 H 101 H Respiratory Rate 22 26 H Blood Pressure 134/73 Pulse Oximetry 94 L 94 L 06/06/18 06:00 06/06/18 08:31 Temperature Pulse Rate 100 H 96 H Respiratory Rate 16 Blood Pressure Pulse Oximetry 99 Intake & Output 06/05/18 06/06/18 06/06/18 18:59 06:59 18:59 Intake Total 200 / 200 300 / 300 Output Total 500 / 500 Balance 200 / 200 -200 / -200 Weight 56 kg Intake: IV 200 / 200 300 / 300 Azactam Inj 1,000 MG In NS Inj 100 / 100 200 / 200 100 ML @ 200 mls/hr IV.SIG Q8H ALPHONSE Rx#:[id number] Keppra 1000 mg/100 mL Premix 100 / 100 100 / 100 100 ML @ 400 mls/hr IV.SIG Q12H ALPHONSE Rx#:[id number] Output: Urine Amount (Catheter) 500 / 500 Condom 500 / 500 Other: # Voids 3 Date of Last Bowel Movement 06/03/18 06/03/18 Physical Exam: CONSTITUTIONAL/GENERAL: cachectic TUBES/LINES/DRAINS: NGT, condom cath, PIV SKIN: No jaundice, rashes, or lesions. No wounds seen anteriorly. Skin temperature appropriate. Not diaphoretic. HEAD: Atraumatic. Normocephalic. EYES: Right pupil reactive, left pupil oval shaped and fixed. eyes glassy. Fundi not examined. ENT: Nose without bleeding or purulent drainage. Throat exam limited by ET tube. NECK: Trachea midline. CARDIOVASCULAR: RRR, no gallops, or rubs. RESPIRATORY/CHEST: tachypneic. coarse lung sounds, audible upper respiratory congestion GASTROINTESTINAL: Abdomen soft, nondistended. No hepato-splenomegaly, or palpable masses. Bowel sounds present. GENITOURINARY: Without palpable bladder distension. Martin catheter in place. MUSCULOSKELETAL: no clubbing or cyanosis NEUROLOGICAL: opens eyes and nods, nonverbal. weak. Diagnostic Tests Laboratory: Laboratory Results - last 72 hr 06/03/18 06/03/18 06/04/18 17:38 23:27 03:00 WBC 15.1 H RBC 2.16 L Hgb 6.9 L* Hct 21.8 L MCV 101.3 H MCH 32.1 MCHC 31.7 L RDW 20.0 H Plt Count 520 H D MPV 8.6 Prelim Diff (Auto) Slide review pending Neut % (Auto) 83.9 H Lymph % (Auto) 8.2 L [place] % (Auto) 6.2 Eos % (Auto) 0.7 Baso % (Auto) 1.0 Neut # (Auto) 12.7 H Lymph # (Auto) 1.2 [place] # (Auto) 0.9 Eos # (Auto) 0.1 Baso # (Auto) 0.2 WBC Differential Manual diff final Seg Neuts % (Manual) 68 Band Neuts % (Manual) 15 H Lymphocytes % (Manual) 10 Monocytes % (Manual) 5 Myelocytes % (Man) 2 H Abs Neuts (Manual) 12.8 H Differential Comment . Platelet Estimate High H Platelet Morphology Normal Puncture Site Patient Temperature O2 Saturation ABG pH ABG pCO2 ABG pO2 ABG HCO3 ABG O2 Content ABG Base Excess ABG Methemoglobin Jim Test Hemoglobin Carboxyhemoglobin O2 Delivery Device Vent Setting Inspired O2 Critical Value Sodium Potassium Chloride Carbon Dioxide Anion Gap BUN Creatinine Estimated GFR POC Glucose 102 142 H Random Glucose Calcium Phosphorus Magnesium Total Bilirubin AST ALT Alkaline Phosphatase Total Protein Albumin Urine Color Urine Clarity Urine pH Ur Specific Ora Urine Protein Urine Glucose (UA) Urine Ketones Urine Occult Blood Urine Nitrate Urine Bilirubin Urine Urobilinogen Ur Leukocyte Esterase Urine WBC Ur Squamous Epith Cells Urine Bacteria Micro UA Comment Urine Culture Comments Vancomycin Trough Blood Type Antibody Screen MTS Gel Crossmatch 06/04/18 06/04/18 06/04/18 03:00 05:57 08:00 WBC 14.5 H RBC 1.94 L Hgb 6.5 L* Hct 19.2 L* MCV 99.0 MCH 33.5 MCHC 33.9 RDW 20.0 H Plt Count 498 H MPV 8.4 Prelim Diff (Auto) Auto diff final Neut % (Auto) 81.4 H Lymph % (Auto) 9.7 [place] % (Auto) 8.1 H Eos % (Auto) 0.5 Baso % (Auto) 0.3 Neut # (Auto) 11.8 H Lymph # (Auto) 1.4 [place] # (Auto) 1.2 H Eos # (Auto) 0.1 Baso # (Auto) 0.0 WBC Differential . Seg Neuts % (Manual) Band Neuts % (Manual) Lymphocytes % (Manual) Monocytes % (Manual) Myelocytes % (Man) Abs Neuts (Manual) Differential Comment . Platelet Estimate Platelet Morphology Puncture Site Patient Temperature O2 Saturation ABG pH ABG pCO2 ABG pO2 ABG HCO3 ABG O2 Content ABG Base Excess ABG Methemoglobin Jim Test Hemoglobin Carboxyhemoglobin O2 Delivery Device Vent Setting Inspired O2 Critical Value Sodium 144 Potassium 3.9 Chloride 105 Carbon Dioxide 27.1 Anion Gap 12 BUN 29 H Creatinine 0.80 Estimated GFR Greater than 89 POC Glucose 165 H Random Glucose 102 Calcium 8.7 Phosphorus Magnesium Total Bilirubin 0.6 AST 65 H ALT 24 Alkaline Phosphatase 297 H Total Protein 6.3 L Albumin 1.3 L Urine Color Urine Clarity Urine pH Ur Specific Ora Urine Protein Urine Glucose (UA) Urine Ketones Urine Occult Blood Urine Nitrate Urine Bilirubin Urine Urobilinogen Ur Leukocyte Esterase Urine WBC Ur Squamous Epith Cells Urine Bacteria Micro UA Comment Urine Culture Comments Vancomycin Trough Blood Type Antibody Screen MTS Gel Crossmatch 06/04/18 06/04/18 06/04/18 09:50 11:58 16:13 WBC RBC Hgb Hct MCV MCH MCHC RDW Plt Count MPV Prelim Diff (Auto) Neut % (Auto) Lymph % (Auto) [place] % (Auto) Eos % (Auto) Baso % (Auto) Neut # (Auto) Lymph # (Auto) [place] # (Auto) Eos # (Auto) Baso # (Auto) WBC Differential Seg Neuts % (Manual) Band Neuts % (Manual) Lymphocytes % (Manual) Monocytes % (Manual) Myelocytes % (Man) Abs Neuts (Manual) Differential Comment Platelet Estimate Platelet Morphology Puncture Site Patient Temperature O2 Saturation ABG pH ABG pCO2 ABG pO2 ABG HCO3 ABG O2 Content ABG Base Excess ABG Methemoglobin Jim Test Hemoglobin Carboxyhemoglobin O2 Delivery Device Vent Setting Inspired O2 Critical Value Sodium Potassium Chloride Carbon Dioxide Anion Gap BUN Creatinine Estimated GFR POC Glucose 163 H 108 Random Glucose Calcium Phosphorus Magnesium Total Bilirubin AST ALT Alkaline Phosphatase Total Protein Albumin Urine Color Urine Clarity Urine pH Ur Specific Ora Urine Protein Urine Glucose (UA) Urine Ketones Urine Occult Blood Urine Nitrate Urine Bilirubin Urine Urobilinogen Ur Leukocyte Esterase Urine WBC Ur Squamous Epith Cells Urine Bacteria Micro UA Comment Urine Culture Comments Vancomycin Trough Blood Type O Positive Antibody Screen Negative MTS Gel Crossmatch See Detail 06/04/18 06/04/18 06/05/18 17:00 23:55 00:25 WBC RBC Hgb 11.0 L D Hct 31.7 L MCV MCH MCHC RDW Plt Count MPV Prelim Diff (Auto) Neut % (Auto) Lymph % (Auto) [place] % (Auto) Eos % (Auto) Baso % (Auto) Neut # (Auto) Lymph # (Auto) [place] # (Auto) Eos # (Auto) Baso # (Auto) WBC Differential Seg Neuts % (Manual) Band Neuts % (Manual) Lymphocytes % (Manual) Monocytes % (Manual) Myelocytes % (Man) Abs Neuts (Manual) Differential Comment Platelet Estimate Platelet Morphology Puncture Site Patient Temperature O2 Saturation ABG pH ABG pCO2 ABG pO2 ABG HCO3 ABG O2 Content ABG Base Excess ABG Methemoglobin Jim Test Hemoglobin Carboxyhemoglobin O2 Delivery Device Vent Setting Inspired O2 Critical Value Sodium Potassium Chloride Carbon Dioxide Anion Gap BUN Creatinine Estimated GFR POC Glucose 159 H Random Glucose Calcium Phosphorus Magnesium Total Bilirubin AST ALT Alkaline Phosphatase Total Protein Albumin Urine Color Yellow Urine Clarity Clear Urine pH 7.0 Ur Specific Ora 1.010 Urine Protein Negative Urine Glucose (UA) Negative Urine Ketones Negative Urine Occult Blood Negative Urine Nitrate Negative Urine Bilirubin Negative Urine Urobilinogen 4 or greater Ur Leukocyte Esterase Negative Urine WBC 1 Ur Squamous Epith Cells <1 Urine Bacteria Rare H Micro UA Comment Cath-culture ind Urine Culture Comments Cath-cult indicated Vancomycin Trough Blood Type Antibody Screen MTS Gel Crossmatch 06/05/18 06/05/18 06/05/18 06:13 06:13 06:22 WBC 17.2 H RBC 3.05 L Hgb 9.8 L Hct 28.7 L MCV 94.1 D MCH 32.1 MCHC 34.2 RDW 19.7 H Plt Count 500 H MPV 8.4 Prelim Diff (Auto) Neut % (Auto) 84.7 H Lymph % (Auto) 7.1 L [place] % (Auto) 6.9 Eos % (Auto) 0.3 Baso % (Auto) 1.0 Neut # (Auto) 14.6 H Lymph # (Auto) 1.2 [place] # (Auto) 1.2 H Eos # (Auto) 0.1 Baso # (Auto) 0.2 WBC Differential . Seg Neuts % (Manual) Band Neuts % (Manual) Lymphocytes % (Manual) Monocytes % (Manual) Myelocytes % (Man) Abs Neuts (Manual) Differential Comment Auto diff final Platelet Estimate Platelet Morphology Puncture Site Patient Temperature O2 Saturation ABG pH ABG pCO2 ABG pO2 ABG HCO3 ABG O2 Content ABG Base Excess ABG Methemoglobin Jim Test Hemoglobin Carboxyhemoglobin O2 Delivery Device Vent Setting Inspired O2 Critical Value Sodium 145 Potassium 3.4 L Chloride 108 H Carbon Dioxide 25.1 Anion Gap 12 BUN 29 H Creatinine 0.85 Estimated GFR 88 L POC Glucose 163 H Random Glucose 131 H Calcium 8.4 L Phosphorus Magnesium Total Bilirubin 0.8 AST 62 H ALT 22 Alkaline Phosphatase 326 H Total Protein 6.3 L Albumin 1.4 L Urine Color Urine Clarity Urine pH Ur Specific Ora Urine Protein Urine Glucose (UA) Urine Ketones Urine Occult Blood Urine Nitrate Urine Bilirubin Urine Urobilinogen Ur Leukocyte Esterase Urine WBC Ur Squamous Epith Cells Urine Bacteria Micro UA Comment Urine Culture Comments Vancomycin Trough Blood Type Antibody Screen MTS Gel Crossmatch 06/05/18 06/05/18 06/05/18 14:19 17:46 18:47 WBC RBC Hgb Hct MCV MCH MCHC RDW Plt Count MPV Prelim Diff (Auto) Neut % (Auto) Lymph % (Auto) [place] % (Auto) Eos % (Auto) Baso % (Auto) Neut # (Auto) Lymph # (Auto) [place] # (Auto) Eos # (Auto) Baso # (Auto) WBC Differential Seg Neuts % (Manual) Band Neuts % (Manual) Lymphocytes % (Manual) Monocytes % (Manual) Myelocytes % (Man) Abs Neuts (Manual) Differential Comment Platelet Estimate Platelet Morphology Puncture Site Right radial Patient Temperature 98.6 O2 Saturation 94 ABG pH 7.54 H* ABG pCO2 33 L ABG pO2 77 ABG HCO3 28 H ABG O2 Content 17.0 ABG Base Excess 4.8 H ABG Methemoglobin 1.1 Jim Test + Hemoglobin 12.9 Carboxyhemoglobin 1.5 O2 Delivery Device Ventilator Vent Setting Cpap 5/10 ps Inspired O2 30 Critical Value Yes Sodium Potassium 3.9 Chloride Carbon Dioxide Anion Gap BUN Creatinine Estimated GFR POC Glucose 107 Random Glucose Calcium Phosphorus Magnesium Total Bilirubin AST ALT Alkaline Phosphatase Total Protein Albumin Urine Color Urine Clarity Urine pH Ur Specific Ora Urine Protein Urine Glucose (UA) Urine Ketones Urine Occult Blood Urine Nitrate Urine Bilirubin Urine Urobilinogen Ur Leukocyte Esterase Urine WBC Ur Squamous Epith Cells Urine Bacteria Micro UA Comment Urine Culture Comments Vancomycin Trough Blood Type Antibody Screen MTS Gel Crossmatch 06/05/18 06/06/18 06/06/18 23:52 02:05 04:48 WBC 16.3 H RBC 2.99 L Hgb 9.5 L Hct 28.8 L MCV 96.2 MCH 31.7 MCHC 33.0 RDW 19.7 H Plt Count 593 H MPV 8.8 Prelim Diff (Auto) Neut % (Auto) 79.5 H Lymph % (Auto) 8.4 L [place] % (Auto) 10.5 H Eos % (Auto) 0.8 Baso % (Auto) 0.8 Neut # (Auto) 13.0 H Lymph # (Auto) 1.4 [place] # (Auto) 1.7 H Eos # (Auto) 0.1 Baso # (Auto) 0.1 WBC Differential . Seg Neuts % (Manual) Band Neuts % (Manual) Lymphocytes % (Manual) Monocytes % (Manual) Myelocytes % (Man) Abs Neuts (Manual) Differential Comment Auto diff final Platelet Estimate Platelet Morphology Puncture Site Patient Temperature O2 Saturation ABG pH ABG pCO2 ABG pO2 ABG HCO3 ABG O2 Content ABG Base Excess ABG Methemoglobin Jim Test Hemoglobin Carboxyhemoglobin O2 Delivery Device Vent Setting Inspired O2 Critical Value Sodium Potassium Chloride Carbon Dioxide Anion Gap BUN Creatinine Estimated GFR POC Glucose 115 H Random Glucose Calcium Phosphorus Magnesium Total Bilirubin AST ALT Alkaline Phosphatase Total Protein Albumin Urine Color Urine Clarity Urine pH Ur Specific Ora Urine Protein Urine Glucose (UA) Urine Ketones Urine Occult Blood Urine Nitrate Urine Bilirubin Urine Urobilinogen Ur Leukocyte Esterase Urine WBC Ur Squamous Epith Cells Urine Bacteria Micro UA Comment Urine Culture Comments Vancomycin Trough 8.1 Blood Type Antibody Screen [facility] Gel Crossmatch 06/06/18 06/06/18 06/06/18 04:48 04:48 06:15 WBC RBC Hgb Hct MCV MCH MCHC RDW Plt Count MPV Prelim Diff (Auto) Neut % (Auto) Lymph % (Auto) [place] % (Auto) Eos % (Auto) Baso % (Auto) Neut # (Auto) Lymph # (Auto) [place] # (Auto) Eos # (Auto) Baso # (Auto) WBC Differential Seg Neuts % (Manual) Band Neuts % (Manual) Lymphocytes % (Manual) Monocytes % (Manual) Myelocytes % (Man) Abs Neuts (Manual) Differential Comment Platelet Estimate Platelet Morphology Puncture Site Patient Temperature O2 Saturation ABG pH ABG pCO2 ABG pO2 ABG HCO3 ABG O2 Content ABG Base Excess ABG Methemoglobin Jim Test Hemoglobin Carboxyhemoglobin O2 Delivery Device Vent Setting Inspired O2 Critical Value Sodium 144 Potassium 3.9 Chloride 108 H Carbon Dioxide 28.3 Anion Gap 8 BUN 30 H Creatinine 0.60 Estimated GFR Greater than 89 POC Glucose 96 Random Glucose 75 Calcium 8.6 Phosphorus 3.9 Magnesium 2.0 Total Bilirubin 1.0 AST 50 H ALT 19 Alkaline Phosphatase 256 H Total Protein 6.3 L Albumin 1.4 L Urine Color Urine Clarity Urine pH Ur Specific Ora Urine Protein Urine Glucose (UA) Urine Ketones Urine Occult Blood Urine Nitrate Urine Bilirubin Urine Urobilinogen Ur Leukocyte Esterase Urine WBC Ur Squamous Epith Cells Urine Bacteria Micro UA Comment Urine Culture Comments Vancomycin Trough Blood Type Antibody Screen MTS Gel Crossmatch 06/06/18 06/06/18 08:38 10:59 WBC RBC Hgb Hct MCV MCH MCHC RDW Plt Count MPV Prelim Diff (Auto) Neut % (Auto) Lymph % (Auto) [place] % (Auto) Eos % (Auto) Baso % (Auto) Neut # (Auto) Lymph # (Auto) [place] # (Auto) Eos # (Auto) Baso # (Auto) WBC Differential Seg Neuts % (Manual) Band Neuts % (Manual) Lymphocytes % (Manual) Monocytes % (Manual) Myelocytes % (Man) Abs Neuts (Manual) Differential Comment Platelet Estimate Platelet Morphology Puncture Site Patient Temperature O2 Saturation ABG pH ABG pCO2 ABG pO2 ABG HCO3 ABG O2 Content ABG Base Excess ABG Methemoglobin Jim Test Hemoglobin Carboxyhemoglobin O2 Delivery Device Vent Setting Inspired O2 Critical Value Sodium Potassium Chloride Carbon Dioxide Anion Gap BUN Creatinine Estimated GFR POC Glucose 92 102 Random Glucose Calcium Phosphorus Magnesium Total Bilirubin AST ALT Alkaline Phosphatase Total Protein Albumin Urine Color Urine Clarity Urine pH Ur Specific Ora Urine Protein Urine Glucose (UA) Urine Ketones Urine Occult Blood Urine Nitrate Urine Bilirubin Urine Urobilinogen Ur Leukocyte Esterase Urine WBC Ur Squamous Epith Cells Urine Bacteria Micro UA Comment Urine Culture Comments Vancomycin Trough Blood Type Antibody Screen MTS Gel Crossmatch Result Diagrams: 06/06/18 04:48 06/06/18 04:48 Microbiology: Microbiology 06/05/18 17:40 Aerobic Blood Culture - Preliminary Blood - Peripheral No growth in 1 day Anaerobic Blood Culture - Preliminary No growth in 1 day 06/05/18 17:46 Aerobic Blood Culture - Preliminary Blood - Peripheral No growth in 1 day Anaerobic Blood Culture - Preliminary No growth in 1 day 06/04/18 09:50 Aerobic Blood Culture - Preliminary Blood - Peripheral No growth in 2 days Anaerobic Blood Culture - Preliminary No growth in 2 days 06/04/18 11:10 Gram Stain - Final Sputum - Endotracheal Sputum Culture - Final 06/04/18 17:00 Urine Culture - Final Catheterized Urine No growth in 48 hours Assessment and Plan - Disease Oriented Problem List (1) Generalized seizure (2) Episode of unresponsiveness (3) Alcohol abuse Pertinent Non-Medical Issues: Psychosocial: 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 . Has 10 kids. Originally from [place], grew up in [place], has been in [place] for 40 y. Lives with one of his daughters. Some of his children are local. Spiritual: Confucianism non-pentecostal, daughter requests alley tender visit Legal: Pt has been incapacitated to make medical decisions. recently extubated. [facility] completed 02/13/17 Amber Sellers. AT this time recommend shared decision making. Ethical issues impacting care: none identified Important Contacts: Carlos Alberto Barnett, son/primary HCS: [phone] Amber Anibal daughter/alternate HCS: [phone] or [phone] Prognosis: 72 yo male with seizure disorder since head injury 5 y ago, noncompliance with seizure meds, 50 year hx drinking up to or more than a gallon of wine daily admitted 05/25 after having seizure like activity, intubated in the field. Neuro status gradually improving since being off sedation. Now extubated, with coarse lung sounds, respiratory congestion, poss PNA. He appears cachectic and malnourished. His poor nutrition status makes full physical recovery unlikely. He is likely to continue having complications such as seizures d/t noncompliance, episodes of withdrawal, falls. Even if he improves sufficiently to be safely discharged to rehab or home with home health, he will likely continue to drink and to decline. He is hospice appropriate. Code Status: Alternative Code (intubation only) Plan: - LEGAL DECISON MAKER - Pt has been incapacitated to make medical decisions. recently extubated, may regain capacity. [facility] completed 02/13/17 Carlos Alberto Barnett, Amber muniz. AT this time recommend shared decision making. - CODE STATUS- no code DNR - GOALS - Comfort oriented. Goals previously aggressive. [facility] Carlos Alberto today acknowledges he does not think his father would want to be intubated; he would want to be comfortable. Declined hospice consult. In previous discussions, Amber muniz [facility] is in touch with other siblings and previously communicated less aggressive goals, "his casket is picked out." - SYMPTOMS - * dyspnea - intubated in field, now on mech vent. pt just extubated 06/05. tachypneic. on 2L NC sat 98%. audible upper respiratory congestion. on auscultation has coarse lung soudns throughout. failed swallow eval. at risk for reintubation. Has PRN and scheduled duonebs. recommend PRN ativan q6h 0.5 mg mild anxiety or dyspnea; 1 mg moderate to severe anxiety or dyspnea * confusion - multifactorial, long hx etoh abuse, seizure disorder, head injury. ?withdrawal vs seizures vs both? EEG 05/26 showing encephalopathy, no seizure activity. NH elevated 40, ?component hepatic encephalopathy? TSH 0.298L. now extubated. awake, lethargic today, opens eyes and nods. Neurology following, poss prolonged post-ictal state, continue keppra, hold all sedation. Neuro feels pt can recover to neurological baseline. levaquin changed to nitrofurantoin per neuro rec. * weakness/debility - pt with 9 days on mech vent, bed bound. He is already malnourished with his heavy etoh consumption. albumin 1.4. It is unlikely he will return to his physical baseline. failed swallow eval. does not appear respiratory status would allow for aggressive PT at this time. - d/w RN - Palliative care will continue to follow during hospital course as condition evolves, to assist patient/decision-maker with understanding of medical conditions, weighing benefits/burdens of treatment options, for clarification of goals of treatment. Additionally will assist with any symptoms of palliative concern Attestation Attestation: To help prompt me to consider important information that might be impacting today's encounter and assessment, information from prior notes written by myself or my colleagues may have been "brought forward" into today's note. My signature on this note, however, is an attestation that I personally performed the exam, history, and/or decision-making noted today, and, unless otherwise indicated, the interactions with patient, family, and staff as well as the review of records all occurred today. I also attest that the listed assessment and stated plan reflect my best clinical judgment today based on the combination of historical information, prior notes, and today's exam/ interactions. When time spent is documented, it refers only to time spent today by the signer, or if indicated, combined time spent today by collaborating physician/nurse practitioner.
--- NOTE | 2018-06-06 12:32 | P.PNWCN ---
Wound Care Nurse Consult Description: Consult for Wound Management of sacral wound per Kristy Snow/Dr Ramachandran Communicated with: PLACIDO Navarro Recommendation: Keep patient off his sacrum. Position patient from left to right sides only. Cleanse wound BID and PRN for soiling. Apply betadine BID and leave dry black eschar HARLAN on sacrum. Additional information: Patient seen on [facility] for sacral wound. Wound/Pressure Injury - Wound Posterior Sacrum Wound Staging: Unstageable Wound Assessment: Ongoing Wound Type: Pressure Injury Is This a Chronic Wound: No Requested from Provider a Wound Care Consult: Yes Length: 6.5 (cm) Width: 5 (cm) Depth: 0 (black eschar) Wound Bed Appearance: Leathery black eschar Drainage Amount: None Dressing Status: Open to Air
--- NOTE | 2018-06-06 14:49 | P.PNID ---
Subjective Remarks: Patient was extubated. Now has O2 via nasal cannula. He appears lethargic. Afebrile. DNR status noted. Cultures are negative. ID consulted for fevers, pneumonia, worsening leukocytosis. This is a 72-year-old male who was brought to the emergency department after he was found to be having grand mal seizures. The patient was intubated and admitted to the intensive care unit. The patient has increased white blood cell count and fever. He has infiltrate on chest x-ray. Past Medical History: PAST MEDICAL HISTORY: Multiple strokes, seizure disorder, alcoholic liver disease. Allergies/Adverse Reactions: Allergies Unable to Assess Allergy (Unknown, Verified 05/25/18 17:12) Unconscious Objective Vital Signs 06/05/18 15:00 06/05/18 16:00 06/05/18 16:02 Temperature Pulse Rate 124 H 118 H 118 H Respiratory Rate 40 H 31 H 33 H Blood Pressure 154/75 H 110/57 L Pulse Oximetry 100 97 98 06/05/18 16:10 06/05/18 17:00 06/05/18 18:00 Temperature Pulse Rate 117 H 114 H 113 H Respiratory Rate 22 29 H 33 H Blood Pressure 106/58 L 119/72 Pulse Oximetry 98 100 06/05/18 19:00 06/05/18 19:33 06/05/18 20:00 Temperature 98.7 F Pulse Rate 114 H 117 H 117 H Respiratory Rate 29 H 22 37 H Blood Pressure 105/56 L 118/31 L Pulse Oximetry 92 L 97 95 06/05/18 22:00 06/06/18 00:00 06/06/18 00:04 Temperature 98.7 F Pulse Rate 112 H 100 H 103 H Respiratory Rate 26 H 22 Blood Pressure 96/56 L Pulse Oximetry 95 94 L 06/06/18 02:00 06/06/18 04:00 06/06/18 06:00 Temperature 98.7 F Pulse Rate 102 H 101 H 100 H Respiratory Rate 26 H Blood Pressure 134/73 Pulse Oximetry 94 L 06/06/18 08:00 06/06/18 08:31 Temperature Pulse Rate 96 H 96 H Respiratory Rate 16 16 Blood Pressure Pulse Oximetry 99 Intake & Output 06/05/18 06/06/18 06/06/18 18:59 06:59 18:59 Intake Total 200 / 200 300 / 300 Output Total 500 / 500 Balance 200 / 200 -200 / -200 Weight 56 kg Intake: IV 200 / 200 300 / 300 Azactam Inj 1,000 MG In NS Inj 100 / 100 200 / 200 100 ML @ 200 mls/hr IV.SIG Q8H [facility] Rx#:[id number] Keppra 1000 mg/100 mL Premix 100 / 100 100 / 100 100 ML @ 400 mls/hr IV.SIG Q12H [facility] Rx#:[id number] Output: Urine Amount (Catheter) 500 / 500 Condom 500 / 500 Other: # Voids 3 Date of Last Bowel Movement 06/03/18 06/03/18 06/06/18 06/05/18 17:40 Blood - Peripheral Aerobic Blood Culture - Preliminary No growth in 1 day 06/05/18 17:40 Blood - Peripheral Anaerobic Blood Culture - Preliminary No growth in 1 day 06/05/18 17:46 Blood - Peripheral Aerobic Blood Culture - Preliminary No growth in 1 day 06/05/18 17:46 Blood - Peripheral Anaerobic Blood Culture - Preliminary No growth in 1 day 06/04/18 09:50 Blood - Peripheral Aerobic Blood Culture - Preliminary No growth in 2 days 06/04/18 09:50 Blood - Peripheral Anaerobic Blood Culture - Preliminary No growth in 2 days 06/04/18 11:10 Sputum - Endotracheal Gram Stain - Final 06/04/18 11:10 Sputum - Endotracheal Sputum Culture - Final 06/04/18 17:00 Catheterized Urine Urine Culture - Final No growth in 48 hours Lab - Hematology Results 06/05/18 06/05/18 06/06/18 00:25 06:13 04:48 WBC 17.2 H 16.3 H RBC 3.05 L 2.99 L Hgb 11.0 L D 9.8 L 9.5 L Hct 31.7 L 28.7 L 28.8 L MCV 94.1 D 96.2 MCH 32.1 31.7 MCHC 34.2 33.0 RDW 19.7 H 19.7 H Plt Count 500 H 593 H MPV 8.4 8.8 Neut % (Auto) 84.7 H 79.5 H Lymph % (Auto) 7.[address] [place] % (Auto) 6.9 10.5 H Eos % (Auto) 0.3 0.8 Baso % (Auto) 1.0 0.8 Neut # (Auto) 14.6 H 13.0 H Lymph # (Auto) 1.[address] [place] # (Auto) 1.2 H 1.7 H Eos # (Auto) 0.1 0.1 Baso # (Auto) 0.2 0.1 WBC Differential . . Differential Comment Auto diff final Auto diff final Lab - Chemistry Results 06/04/18 06/04/18 06/05/18 16:13 23:55 06:13 Sodium 145 Potassium 3.4 L Chloride 108 H Carbon Dioxide 25.1 Anion Gap 12 BUN 29 H Creatinine 0.85 Estimated GFR 88 L POC Glucose 108 159 H Random Glucose 131 H Calcium 8.4 L Phosphorus Magnesium Total Bilirubin 0.8 AST 62 H ALT 22 Alkaline Phosphatase 326 H Total Protein 6.3 L Albumin 1.4 L 06/05/18 06/05/18 06/05/18 06:22 17:46 18:47 Sodium Potassium 3.9 Chloride Carbon Dioxide Anion Gap BUN Creatinine Estimated GFR POC Glucose 163 H 107 Random Glucose Calcium Phosphorus Magnesium Total Bilirubin AST ALT Alkaline Phosphatase Total Protein Albumin 06/05/18 06/06/18 06/06/18 23:52 04:48 04:48 Sodium 144 Potassium 3.9 Chloride 108 H Carbon Dioxide 28.3 Anion Gap 8 BUN 30 H Creatinine 0.60 Estimated GFR Greater than 89 POC Glucose 115 H Random Glucose 75 Calcium 8.6 Phosphorus 3.9 Magnesium 2.0 Total Bilirubin 1.0 AST 50 H ALT 19 Alkaline Phosphatase 256 H Total Protein 6.3 L Albumin 1.4 L 06/06/18 06/06/18 06/06/18 06:15 08:38 10:59 Sodium Potassium Chloride Carbon Dioxide Anion Gap BUN Creatinine Estimated GFR POC Glucose 96 92 102 Random Glucose Calcium Phosphorus Magnesium Total Bilirubin AST ALT Alkaline Phosphatase Total Protein Albumin Imaging: ITS Impressions Head CT 05/25/18 15:22 CONCLUSION: Chronic small vessel ischemic and atrophic changes. Head MRI 05/27/18 00:00 CONCLUSION: 1. Atrophy, white matter disease and remote left temporal infarct with encephalomalacia. Chest X-Ray 06/04/18 09:56 CONCLUSION: Patchy infiltrates are noted within the left mid and lower lung field and streakiness is noted within the right lung base consistent with atelectasis and/ or pneumonia. Clinical correlation is recommended. Physical Exam: GENERAL: Lethargic. HEENT: Head is atraumatic. Bitemporal wasting. Extraocular movements appear grossly intact. No icterus. Oropharynx intubated. NECK: Supple without adenopathy. LUNGS: Coarse rhonchi at both bases. HEART: Regular S1 and S2. No murmurs heard. ABDOMEN: Bowel sounds present. Soft, no tenderness appreciated. EXTREMITIES: No clubbing or cyanosis. 1+ edema of the left hand. SKIN: No diffuse rash. NEUROLOGIC: Unable to fully assess. Very lethargic. PSYCHIATRIC: Unable to assess. Assessment and Plan - Plan IMPRESSION: 1. Pneumonia, likely health-care acquired. The patient is status post seizure and may have aspirated. 2. Leukocytosis. White blood cell count still elevated. 3. Acute respiratory failure. 4. Urinary tract infection with Klebsiella. 5. Seizure disorder. RECOMMENDATIONS: 1. Continue aztreonam. 2. Continue vancomycin. 3. Monitor blood cultures. 4. Monitor temperature and white blood cell count and clinical response.
[2018-06-06] MEDS: Insulin NovoLIN Regular Correctional Sugar Inj SQ SCH ×3 (16:27→23:17)
[2018-06-06] MEDS: Vancomycin Inj 1,000 MG in Sodium Chlor 0.9% Inj 250 ML IV.SIG SCH (16:33)
[2018-06-06] MEDS: Chlorhexidine 0.12% Oral Kit 15 ML UDC OROPHARYNG SCH ×2 (19:56→23:16)
[2018-06-07] MEDS: levETIRAcetam 1000mg/100mL Inj 100 ML IV.SIG SCH ×2 (00:38→14:05)
[2018-06-07] MEDS: Insulin NovoLIN Regular Correctional Sugar Inj SQ SCH ×2 (00:38→07:01)
[2018-06-07] MEDS: Oral Hygiene Kit OROPHARYNG SCH ×3 (00:39→14:10)
[2018-06-07] MEDS: Vancomycin Inj 1,000 MG in Sodium Chlor 0.9% Inj 250 ML IV.SIG SCH ×2 (01:02→14:10)
[2018-06-07 07:14] LABS: Albumin 1.3 g/dL (3.4-5.0); Anion Gap 9 meq/L (5-15); Aspartate Aminotransferase 269 U/L (15-37); Blood Urea Nitrogen 30 mg/dL (7-18); Calcium 8.1 mg/dL (8.5-10.1); Chloride 114 meq/L (98-107); Glomerular Filtration Rate Greater Than 89 mL/min (>89); Glucose,Random 117 mg/dL (74-106); Potassium 4.3 meq/L (3.5-5.1)
[2018-06-07 07:16] LABS: Sodium 148 meq/L (136-145)
--- NOTE | 2018-06-07 07:16 | P.PNCC ---
Subjective Subjective Remarks/Hospital Course: Hospital Course: This is a 72-year-old male with a history of alcoholic cirrhosis and seizure disorder who presents with ongoing active grand mal seizures. He was altered in the field and unable to participate airway and was intubated in the field. No additional information is available from the patient. In the emergency department he was hypotensive requiring IV fluid boluses. Laboratory evidence is remarkable for an undetectable phenytoin level in a patient on chronic Dilantin therapy. Review of systems is unavailable due to the clinical condition of the patient. subjective: 05/26: EEG without ictal activity. phenytoin level now therapeutic. patient wakes and follows commands. will wean mechanical ventilation. however, etoh withdraw persists, and CAM+, so may be very difficult to extubate successfully. 05/27: no improvement in mental status. awakens and moves all extremities but does not follow commands. dilantin level slightly elevated this AM. will hold next dose and decrease future doses. ordered MRI to eval for ischemia. Son is the medical decision-maker and wants aggressive goals. daughter is "alternate" [id number] and was asking about hospice. 05/28: Remains sedated, orally intubated on mechanical ventilation. 2: Remains encephalopathic, sedated, orally intubated on mechanical ventilation. Tremors in right upper extremity. 05/30: Remains encephalopathic, orally intubated on mechanical ventilation. Neuro consult noted. 05/31: Remains encephalopathic, orally intubated on mechanical ventilation. Tolerating tube feeds. 06/01: Remains encephalopathic, orally intubated on mechanical ventilation. Tolerating tube feeds. Not awake enough for extubation. Daily CPAP trials ongoing. 06/02: Remains encephalopathic. Occasionally eye opening noted. Not following commands. Remains orally intubated on mechanical ventilation. Tolerating tube feeds. 06/03: Remains encephalopathic. Orally intubated on mechanical ventilation. Neuro status gradually improving. Levaquin being switched to Macrobid for UTI 06/04 No events overnight. On no sedation. T:100.5 yesterday. Hgb 6.5 this morning. 06/05 Patient was started on Diprivan overnight for sedation. s/p transfusion 2u PRBC yesterday. Had T:101.5 at 4 am. 06/06 Patient was extubated yesterday on 3L oxygen. Afebrile. 06/07 No events overnight. Afebrile. Objective Vital Signs / I&O: Vital Signs 06/06/18 08:00 06/06/18 08:31 06/06/18 09:00 Temperature 97.8 F Pulse Rate 97 H 96 H 101 H Respiratory Rate 30 H 16 30 H Blood Pressure 110/64 102/62 Pulse Oximetry 100 99 82 L 06/06/18 10:00 06/06/18 11:00 06/06/18 12:00 Temperature 98.0 F Pulse Rate 100 H 101 H 104 H Respiratory Rate 27 H 23 25 H Blood Pressure 112/60 112/61 110/67 Pulse Oximetry 98 99 100 06/06/18 13:00 06/06/18 14:00 06/06/18 15:00 Temperature Pulse Rate 103 H 105 H 108 H Respiratory Rate 26 H 18 28 H Blood Pressure 104/65 107/63 125/63 Pulse Oximetry 96 98 99 06/06/18 16:00 06/06/18 16:08 06/06/18 18:00 Temperature Pulse Rate 109 H 105 H 105 H Respiratory Rate 26 H 24 Blood Pressure 115/63 Pulse Oximetry 99 06/06/18 20:00 06/06/18 20:10 06/06/18 22:00 Temperature 99.4 F Pulse Rate 107 H 100 H 109 H Respiratory Rate 29 H 25 H Blood Pressure 93/55 L Pulse Oximetry 97 06/07/18 00:00 06/07/18 00:22 06/07/18 02:00 Temperature 99.1 F Pulse Rate 107 H 101 H 109 H Respiratory Rate 26 H 23 Blood Pressure 107/64 Pulse Oximetry 99 06/07/18 03:43 06/07/18 04:00 06/07/18 06:00 Temperature 98.5 F Pulse Rate 102 H 112 H 109 H Respiratory Rate 24 30 H Blood Pressure 109/63 Pulse Oximetry 100 Intake & Output 06/06/18 06/07/18 06/07/18 18:59 06:59 18:59 Intake Total 1356 / 1356 800 / 800 Output Total 50 / 50 Balance 1306 / 1306 800 / 800 Intake: IV 100 / 100 800 / 800 Azactam Inj 1,000 MG In NS Inj 100 / 100 100 / 100 100 ML @ 200 mls/hr IV.SIG Q8H [facility] Rx#:[id number] Vancomycin Inj 1,000 MG In NS 500 / 500 Inj 250 ML @ 250 mls/hr IV.SIG Q12H [facility] Rx#:[id number] Keppra 1000 mg/100 mL Premix 200 / 200 100 ML @ 400 mls/hr IV.SIG Q12H [facility] Rx#:[id number] Tube Feeding 796 / 796 Tube Irrigant 200 / 200 Water Bolus Amount 60 / 60 Other 200 / 200 Output: Gastric Drainage 50 / 50 Left Nare 50 / 50 Other: Post Void Residual 183 # Voids 3 # Incontinent Voids 4 Date of Last Bowel Movement 06/06/18 06/06/18 # Bowel Movements 1 Result Diagrams: 06/07/18 08:00 06/07/18 04:06 Other Results: Laboratory Results - last 12 hr 06/07/18 06/07/18 00:38 07:01 POC Glucose 127 H 133 H Imaging: Head CT 05/25/18 15:22 CONCLUSION: Chronic small vessel ischemic and atrophic changes. Head MRI 05/27/18 00:00 CONCLUSION: 1. Atrophy, white matter disease and remote left temporal infarct with encephalomalacia. Chest X-Ray 06/04/18 09:56 CONCLUSION: Patchy infiltrates are noted within the left mid and lower lung field and streakiness is noted within the right lung base consistent with atelectasis and/ or pneumonia. Clinical correlation is recommended. Objective Remarks: GENERAL: Patient is 72 yo lying in bed in NAD SKIN: Warm and dry. HEAD: Normocephalic. EYES: No scleral icterus. No injection or drainage. NECK: Supple, trachea midline. No JVD or lymphadenopathy. CARDIOVASCULAR: Regular rate and rhythm without murmurs, gallops, or rubs. RESPIRATORY: Breath sounds equal bilaterally. No accessory muscle use. GASTROINTESTINAL: Abdomen soft, non-tender, nondistended. MUSCULOSKELETAL: No cyanosis, or edema. Neuro: Awake. Assessment and Plan - Assessment and Plan Plan: Plan by systems: Neurologic: Alcohol dependence Alcohol withdrawal Seizure disorder with active seizures- improving. Medication noncompliance Acute combined toxic and metabolic encephalopathy- resolving. Frequent neurochecks Continue with Keppra per Neuro EEG 05/26: negative for ictal activity. generalized slowing. Repeat EEG ordered on 05/29 in view of tremors noted in right upper extremity. Neurology consult noted. On thiamine and multivitamins Head CT negative for acute disease 05/25. MRI brain: Remote left temporal infarct, atrophy 05/27 Respiratory: Acute hypoxic and hypercarbic respiratory failure Head of bed elevated Continue with oxygen keep sats >92% Bronchodilators, Check CXR Cardiovascular: Monitor HR and BP keep MAP>65mmHg Renal: urinary retention - no indication for tubbs. straight cath q6h. Monitor renal function. I/O's, electrolytes replacement per protocol Add Free water 250ml Q12 monitor sodium level. FEN/GI: Alcoholic cirrhosis Acute protein calorie malnutritionsevere Severe hypokalemia- resolving. Acute intravascular volume depletion- resolving. Hyponatremia- resolved Dehydration- resolving. ICU electrolyte protocol Speech eval, diet per speech, tube feeds:if kept NPO per speech will resume tube feeds - Jevity 1.5@60ml/hr ID: UTI noted. Urine cx: Kleb pneumonia on 05/29, Continue Aztreonam and Vanco, 06/04, Urine, Blood culture, sputum cx: NGTD ID is following. Heme: Monitor CBC, s/p transfuse 2u PRBC 06/04. Endocrine: Hyperglycemia of critical illness -- SSI Prophylaxis: GI Prophylaxis Pepcid DVT Prophylaxis -- SCDs Lovenox held for anemia requiring blood transfusion Lines: Peripheral IVs Tubbs Palliative care is following Follow up on labs Level 2
[2018-06-07 07:20] LABS: Alanine Aminotransferase 59 U/L (12-78); Alkaline Phosphatase 816 U/L (45-117); Total Protein 5.9 g/dL (6.4-8.2)
--- NOTE | 2018-06-07 07:44 | XR ---
EXAM DATE: 06/07/2018 7:38 AM EDT AGE/SEX: 72 years / Male INDICATIONS: Infiltrates, SOB CLINICAL DATA: This is the patient's subsequent encounter. Patient reports that signs and symptoms h ave been present for 1 week and indicates a pain score of Nonresponsive. MEDICAL/SURGICAL HISTORY: Non-responsive. Non-responsive. COMPARISON: C, CHEST 1V SINGLE AP, 06/04/2018. . FINDINGS: A single AP view of the chest demonstrates bilateral perihilar densities and left basilar airspace di sease. Nasogastric tube removed. Nasogastric tube unchanged. Heart normal in size. The cardiomediast inal contours are unremarkable. Osseous structures are intact. CONCLUSION: Bilateral perihilar densities and left basilar airspace disease, not significantly changed. Electronically signed by: Syd Gong MD 06/07/2018 7:43 AM EDT
[2018-06-07 09:10] LABS: Baso # (Auto) 0.1 th/mm3 (0.0-0.2); Baso % (Auto) 0.5 % (0.0-2.0); Eos % (Auto) 0.4 % (0.0-4.0); Hematocrit 27.1 % (39.0-51.0); Hemoglobin 9.1 gm/dL (13.0-17.0); Lymph % (Auto) 9.7 % (9.0-44.0); Mean Corpuscular HGB Conc 33.7 % (32.0-36.0); Mean Corpuscular Hemoglobin 32.4 pg (27.0-34.0); Mean Corpuscular Volume 96.3 fL (80.0-100.0); Mean Platelet Volume 7.9 fL (7.0-11.0); Mono # (Auto) 1.2 th/mm3 (0.0-0.9); Mono % (Auto) 11.5 % (0.0-8.0); Neut # (Auto) 8.4 th/mm3 (1.8-7.7); Neut % (Auto) 77.9 % (16.0-70.0); Platelet Count 659 th/mm3 (150-450); Red Blood Count 2.82 mil/mm3 (4.50-5.90); Red Cell Distribution Width 18.7 % (11.6-17.2); White Blood Count 10.8 th/mm3 (4.0-11.0)
[2018-06-07] MEDS: Senna/Docusate Sodium 8.6/50 MG Tablet PO SCH ×2 (09:11→20:28)
[2018-06-07] MEDS: Famotidine PF Inj 20 MG/2 ML Vial IV.PUSH SCH ×2 (09:11→20:27)
[2018-06-07] MEDS: Chlorhexidine 0.12% Oral Kit 15 ML UDC OROPHARYNG SCH ×2 (09:11→20:27)
--- NOTE | 2018-06-07 11:03 | P.PNNEU ---
Subjective Subjective Comments: No acute events reported No headache No chest pain No dyspnea Active Medications: Active Medications Acetaminophen (Tylenol Liq) 650 mg PO Q6H PRN PRN Reason: SEE DOSE INSTRUCTIONS Last Admin: 06/05/18 04:47 Dose: 650 mg Al Hydroxide/Mg Hydroxide (Milk Of Magnesia Liq) 30 ml PO Q12H PRN PRN Reason: Mild Constipation Albuterol (Duoneb Neb (Prn)) 1 ampul NEB Q2HR NEB PRN PRN Reason: WHEEZING Albuterol (Duoneb Neb (Leigha)) 1 ampul NEB Q4HR NEB [facility] Last Admin: 06/07/18 08:04 Dose: 1 ampul Bisacodyl (Dulcolax Supp) 10 mg RECTAL DAILY PRN PRN Reason: SEVERE CONSITIPATION Chlorhexidine Gluconate (Peridex 0.12% Oral Kit) 15 ml OROPHARYNG BID@0800, 1999 [facility] Last Admin: 06/07/18 09:11 Dose: 15 ml Dextrose (D50w Vial) 50 ml IV.PUSH UNSCH PRN PRN Reason: PER HYPOGLYCEMIA PROTOCOL Enoxaparin Sodium (Lovenox Inj) 40 mg SQ Q24H [facility] Last Admin: 06/03/18 20:29 Dose: 40 mg Famotidine (Pepcid Pf Inj) 20 mg IV.PUSH Q12HR [facility] Last Admin: 06/07/18 09:11 Dose: 20 mg Flumazenil (Romazecon Inj) 0.2 mg IV.PUSH Q1M PRN PRN Reason: OVERSEDATION Glucagon (Glucagon Inj) 1 mg OTHER PRN PRN PRN Reason: for Hypoglycemia Protocol Magnesium Sulfate Inj 4 gm/ (Sodium Chloride) 100 mls @ 50 mls/hr IV.SIG UNSCH PRN PRN Reason: For Magnesium 0.9 - 1.1 mg/dL Magnesium Sulfate Inj 2 gm/ (Sodium Chloride) 100 mls @ 50 mls/hr IV.SIG UNSCH PRN PRN Reason: For Magnesium 1.2 - 1.6 mg/dL Last Infusion: 06/04/18 07:00 Dose: Infused Potassium Chloride (Kcl 40 Meq Premix Inj) 40 meq in 100 mls @ 25 mls/hr IV.SIG Q2H PRN PRN Reason: For Potassium 2.8 - 3.2 mEq/L Potassium Chloride (Kcl 40 Meq Premix Inj) 40 meq in 100 mls @ 25 mls/hr IV.SIG UNSCH PRN PRN Reason: For Potassium 3.3 - 3.5 mEq/L Potassium Chloride (Kcl 20 Meq Premix Inj) 20 meq in 100 mls @ 50 mls/hr IV.SIG Q2H PRN PRN Reason: For Potassium 2.8 - 3.2 mEq/L Potassium Phosphate 30 mmol/ (Sodium Chloride) 260 mls @ 42 mls/hr IV.SIG UNSCH PRN PRN Reason: SEE LABEL COMMENTS Sodium Phosphate 30 mmol/ (Sodium Chloride) 260 mls @ 42 mls/hr IV.SIG UNSCH PRN PRN Reason: For Phosphorus < 2.5 mg/dL Last Infusion: 05/27/18 14:58 Dose: Infused Potassium Chloride (Kcl 20 Meq Premix Inj) 20 meq in 100 mls @ 50 mls/hr IV.SIG Q2H PRN PRN Reason: For Potassium 3.3 - 3.5 mEq/L Levetiracetam (Keppra 1000 Mg/100 Ml Premix) 100 mls @ 400 mls/hr IV.SIG Q12H [facility] Last Infusion: 06/07/18 06:32 Dose: Infused Aztreonam 1,000 mg/ Sodium (Chloride) 100 mls @ 200 mls/hr IV.SIG Q8H [facility] Last Admin: 06/07/18 07:05 Dose: 200 mls/hr Pharmacy Profile Note (Vancomycin Consult Pharmacy) 0 mls @ 0 mls/hr OTHER UNSCH [facility] Vancomycin HCl 1,000 mg/ (Sodium Chloride) 250 mls @ 250 mls/hr IV.SIG Q12H [facility] Last Infusion: 06/07/18 06:32 Dose: Infused Insulin Human Regular (Novolin R Correctional Sugar Inj) 0 units SQ Q6HR [facility]; Protocol Last Admin: 06/07/18 07:01 Dose: Not Given Lactulose (Lactulose Liq) 30 ml PO DAILY PRN PRN Reason: SEVERE CONSITIPATION Magnesium Oxide (Mag-Ox) 800 mg PO UNSCH PRN PRN Reason: For Magnesium 1.2 - 1.6 mg/dL Miscellaneous (Pill Splitter) 1 each OTHER UNSCH PRN PRN Reason: PILL SPLITTER Miscellaneous Information ([facility] Ordered Lab Info) 0 each OTHER ONCE ONE Stop: 06/08/18 01:46 Ondansetron HCl (Zofran Inj) 4 mg IV.PUSH Q6H PRN PRN Reason: NAUSEA OR VOMITING Potassium Bicarb/Potassium Chloride (K-Lyte Cl Eff) 50 meq PO UNSCH PRN PRN Reason: For Potassium 3.3 - 3.5 mEq/L Last Admin: 05/26/18 11:33 Dose: 50 meq Potassium Phosphate (K-Phos Original) 2,000 mg PO Q4H PRN PRN Reason: Phosphorus Less Than 2.5 mg/dL Last Admin: 05/31/18 17:47 Dose: 2,000 mg Potassium Phosphate (K-Phos Original) 2,000 mg PO UNSCH PRN PRN Reason: SEE LABEL COMMENTS Senna/Docusate Sodium (Anupama-Colace) 1 tab PO BID [facility] Last Admin: 06/07/18 09:11 Dose: 1 tab Sennosides (Senokot) 17.2 mg PO Q12H PRN PRN Reason: Moderate Constipation Sodium Chloride (Ns Flush) 2 ml IV.FLUSH BID [facility] Last Admin: 06/07/18 09:11 Dose: 2 ml Sodium Chloride (Ns Flush) 2 ml IV.FLUSH PRN PRN PRN Reason: FLUSH AFTER USING IV ACCESS Last Admin: 06/01/18 00:10 Dose: 2 ml Sterile Water (Free Water) 250 ml G-TUBE Q12HR [facility] Thiamine HCl (Vitamin B1) 100 mg PO DAILY [facility] Last Admin: 06/07/18 09:11 Dose: 100 mg Allergies/Adverse Reactions: Allergies Allergy/AdvReac Type Severity Reaction Status Date / Time Unable to Assess Allergy Unknown Unconscious Verified 05/25/18 17:12 Physical Exam Vital signs: Vital Signs 06/06/18 12:00 06/06/18 13:00 06/06/18 14:00 Temperature 98.0 F Pulse Rate 104 H 103 H 105 H Respiratory Rate 25 H 26 H 18 Blood Pressure 110/67 104/65 107/63 Pulse Oximetry 100 96 98 06/06/18 15:00 06/06/18 16:00 06/06/18 16:08 Temperature Pulse Rate 108 H 109 H 105 H Respiratory Rate 28 H 26 H 24 Blood Pressure 125/63 115/63 Pulse Oximetry 99 99 06/06/18 18:00 06/06/18 20:00 06/06/18 20:10 Temperature 99.4 F Pulse Rate 105 H 107 H 100 H Respiratory Rate 29 H 25 H Blood Pressure 93/55 L Pulse Oximetry 97 06/06/18 22:00 06/07/18 00:00 06/07/18 00:22 Temperature 99.1 F Pulse Rate 109 H 107 H 101 H Respiratory Rate 26 H 23 Blood Pressure 107/64 Pulse Oximetry 99 06/07/18 02:00 06/07/18 03:43 06/07/18 04:00 Temperature 98.5 F Pulse Rate 109 H 102 H 112 H Respiratory Rate 24 30 H Blood Pressure 109/63 Pulse Oximetry 100 06/07/18 06:00 06/07/18 08:03 Temperature Pulse Rate 109 H 107 H Respiratory Rate 18 Blood Pressure Pulse Oximetry 99 Intake & Output 06/06/18 06/07/18 06/07/18 18:59 06:59 18:59 Intake Total 1356 / 1356 1562 / 1562 Output Total 50 / 50 850 / 850 Balance 1306 / 1306 712 / 712 Intake: IV 100 / 100 800 / 800 Azactam Inj 1,000 MG In NS Inj 100 / 100 100 / 100 100 ML @ 200 mls/hr IV.SIG Q8H [facility] Rx#:[id number] Vancomycin Inj 1,000 MG In NS 500 / 500 Inj 250 ML @ 250 mls/hr IV.SIG Q12H [facility] Rx#:[id number] Keppra 1000 mg/100 mL Premix 200 / 200 100 ML @ 400 mls/hr IV.SIG Q12H [facility] Rx#:[id number] Tube Feeding 796 / 796 762 / 762 Tube Irrigant 200 / 200 Water Bolus Amount 60 / 60 Other 200 / 200 Output: Urine Amount (Catheter) 850 / 850 Condom 850 / 850 Gastric Drainage 50 / 50 Left Nare 50 / 50 Other: Post Void Residual 183 # Voids 3 # Incontinent Voids 4 Date of Last Bowel Movement 06/06/18 06/07/18 # Bowel Movements 1 1 Narrative: off vent for two days just mumbling now moves bue ok not follow commands - Urinary Catheter Management Indwelling Urethral Catheter Cath placed during this visit: yes, but has since been removed by the nurse Reason for continuing: Not indwelling catheter Insertion date: 05/25/18 Insertion time: 15:00 Removal date: 05/26/18 Removal time: 12:00 Straight Cath placed during this visit: yes Reason for continuing: Not indwelling catheter Insertion date: 06/05/18 Insertion time: 00:20 Condom Cath placed during this visit: no Reason for continuing: Not indwelling catheter Objective Laboratory Results - last 24 hr 06/06/18 06/06/18 06/07/18 10:59 18:01 00:38 WBC RBC Hgb Hct MCV MCH MCHC RDW Plt Count MPV Neut % (Auto) Lymph % (Auto) [place] % (Auto) Eos % (Auto) Baso % (Auto) Neut # (Auto) Lymph # (Auto) [place] # (Auto) Eos # (Auto) Baso # (Auto) WBC Differential Differential Comment Sodium Potassium Chloride Carbon Dioxide Anion Gap BUN Creatinine Estimated GFR POC Glucose 102 137 H 127 H Random Glucose Calcium Total Bilirubin AST ALT Alkaline Phosphatase Total Protein Albumin 06/07/18 06/07/18 06/07/18 04:06 07:01 08:00 WBC 10.8 RBC 2.82 L Hgb 9.1 L Hct 27.1 L MCV 96.3 MCH 32.4 MCHC 33.7 RDW 18.7 H Plt Count 659 H MPV 7.9 Neut % (Auto) 77.9 H Lymph % (Auto) 9.7 [place] % (Auto) 11.5 H Eos % (Auto) 0.4 Baso % (Auto) 0.5 Neut # (Auto) 8.4 H Lymph # (Auto) 1.0 [place] # (Auto) 1.2 H Eos # (Auto) 0.0 Baso # (Auto) 0.1 WBC Differential . Differential Comment Auto diff final Sodium 148 H Potassium 4.3 Chloride 114 H Carbon Dioxide 25.0 Anion Gap 9 BUN 30 H Creatinine 0.66 Estimated GFR Greater than 89 POC Glucose 133 H Random Glucose 117 H Calcium 8.1 L Total Bilirubin 1.9 H AST 269 H ALT 59 Alkaline Phosphatase 816 H Total Protein 5.9 L Albumin 1.3 L 06/07/18 08:58 WBC RBC Hgb Hct MCV MCH MCHC RDW Plt Count MPV Neut % (Auto) Lymph % (Auto) [place] % (Auto) Eos % (Auto) Baso % (Auto) Neut # (Auto) Lymph # (Auto) [place] # (Auto) Eos # (Auto) Baso # (Auto) WBC Differential Differential Comment Sodium Potassium Chloride Carbon Dioxide Anion Gap BUN Creatinine Estimated GFR POC Glucose 148 H Random Glucose Calcium Total Bilirubin AST ALT Alkaline Phosphatase Total Protein Albumin Microbiology 06/05/18 17:40 Aerobic Blood Culture - Preliminary Blood - Peripheral No growth in 1 day Anaerobic Blood Culture - Preliminary No growth in 1 day 06/05/18 17:46 Aerobic Blood Culture - Preliminary Blood - Peripheral No growth in 1 day Anaerobic Blood Culture - Preliminary No growth in 1 day 06/04/18 09:50 Aerobic Blood Culture - Preliminary Blood - Peripheral No growth in 2 days Anaerobic Blood Culture - Preliminary No growth in 2 days 06/04/18 11:10 Gram Stain - Final Sputum - Endotracheal Sputum Culture - Final Review/Management - Review/Management Plan: imp mri and eeg neg on keppra hold all sedatives could be prolonged postictal will fu saturday see if awakens over next few days no apparent reason why he would not - 06/02/18 much better should do well keppra off vent when able 06/05/18 no sz he should bounce back neurowise to prior level of functioning keppra stable neuro 06/07/18 no sz on keppra 1000 bid eeg neg check abg for some inc ms change may need peg? i dw sone no etoh and needs to take his meds lives w daughter she should see that he does
[2018-06-07 11:22] LABS: ABG Base Excess 4.4 mmol/L (-2-2); ABG PCO2 38 mmHg (38-42); ABG PO2 99 mmHG (61-120)
[2018-06-08] MEDS: levETIRAcetam 1000mg/100mL Inj 100 ML IV.SIG SCH (00:58)
[2018-06-08] MEDS: Insulin NovoLIN Regular Correctional Sugar Inj SQ SCH ×6 (01:01→19:40)
[2018-06-08] MEDS: Oral Hygiene Kit OROPHARYNG SCH ×5 (01:06→19:41)
[2018-06-08] MEDS ORDERED: Pharmacy Ordered Lab Info OTHER ONE (01:45)
[2018-06-08] MEDS: Vancomycin Inj 1,000 MG in Sodium Chlor 0.9% Inj 250 ML IV.SIG SCH ×2 (03:03→05:15)
[2018-06-08 03:36] LABS: Alanine Aminotransferase 50 U/L (12-78); Albumin 1.3 g/dL (3.4-5.0); Alkaline Phosphatase 542 U/L (45-117); Anion Gap 6 meq/L (5-15); Aspartate Aminotransferase 128 U/L (15-37); Blood Urea Nitrogen 25 mg/dL (7-18); Calcium 8.1 mg/dL (8.5-10.1); Carbon Dioxide 29.8 meq/L (21.0-32.0); Chloride 114 meq/L (98-107); Glomerular Filtration Rate Greater Than 89 mL/min (>89); Glucose,Random 95 mg/dL (74-106); Potassium 3.4 meq/L (3.5-5.1); Sodium 150 meq/L (136-145); Total Protein 5.7 g/dL (6.4-8.2); Vancomycin,Trough 22.1 mcg/mL (5.0-10.0)
[2018-06-08 05:09] LABS: Baso % (Auto) 0.6 % (0.0-2.0); Eos # (Auto) 0.1 th/mm3 (0.0-0.4); Hematocrit 25.9 % (39.0-51.0); Hemoglobin 8.6 gm/dL (13.0-17.0); Lymph # (Auto) 1.2 th/mm3 (1.0-4.8); Lymph % (Auto) 13.4 % (9.0-44.0); Mean Corpuscular HGB Conc 33.2 % (32.0-36.0); Mean Corpuscular Volume 96.3 fL (80.0-100.0); Mean Platelet Volume 7.8 fL (7.0-11.0); Mono # (Auto) 1.2 th/mm3 (0.0-0.9); Mono % (Auto) 13.8 % (0.0-8.0); Neut # (Auto) 6.3 th/mm3 (1.8-7.7); Neut % (Auto) 71.2 % (16.0-70.0); Platelet Count 699 th/mm3 (150-450); Red Blood Count 2.69 mil/mm3 (4.50-5.90); Red Cell Distribution Width 18.2 % (11.6-17.2); White Blood Count 8.8 th/mm3 (4.0-11.0)
--- NOTE | 2018-06-08 07:52 | P.PNCC ---
Subjective Subjective Remarks/Hospital Course: Hospital Course: This is a 72-year-old male with a history of alcoholic cirrhosis and seizure disorder who presents with ongoing active grand mal seizures. He was altered in the field and unable to participate airway and was intubated in the field. No additional information is available from the patient. In the emergency department he was hypotensive requiring IV fluid boluses. Laboratory evidence is remarkable for an undetectable phenytoin level in a patient on chronic Dilantin therapy. Review of systems is unavailable due to the clinical condition of the patient. subjective: 05/26: EEG without ictal activity. phenytoin level now therapeutic. patient wakes and follows commands. will wean mechanical ventilation. however, etoh withdraw persists, and CAM+, so may be very difficult to extubate successfully. 05/27: no improvement in mental status. awakens and moves all extremities but does not follow commands. dilantin level slightly elevated this AM. will hold next dose and decrease future doses. ordered MRI to eval for ischemia. Son is the medical decision-maker and wants aggressive goals. daughter is "alternate" [id number] and was asking about hospice. 05/28: Remains sedated, orally intubated on mechanical ventilation. 2: Remains encephalopathic, sedated, orally intubated on mechanical ventilation. Tremors in right upper extremity. 05/30: Remains encephalopathic, orally intubated on mechanical ventilation. Neuro consult noted. 05/31: Remains encephalopathic, orally intubated on mechanical ventilation. Tolerating tube feeds. 06/01: Remains encephalopathic, orally intubated on mechanical ventilation. Tolerating tube feeds. Not awake enough for extubation. Daily CPAP trials ongoing. 06/02: Remains encephalopathic. Occasionally eye opening noted. Not following commands. Remains orally intubated on mechanical ventilation. Tolerating tube feeds. 06/03: Remains encephalopathic. Orally intubated on mechanical ventilation. Neuro status gradually improving. Levaquin being switched to Macrobid for UTI 06/04 No events overnight. On no sedation. T:100.5 yesterday. Hgb 6.5 this morning. 06/05 Patient was started on Diprivan overnight for sedation. s/p transfusion 2u PRBC yesterday. Had T:101.5 at 4 am. 06/06 Patient was extubated yesterday on 3L oxygen. Afebrile. 06/07 No events overnight. Afebrile. 06/08 Patient is lying in bed in NAD. Afebrile. Objective Vital Signs / I&O: Vital Signs 06/07/18 08:00 06/07/18 08:03 06/07/18 09:00 Temperature Pulse Rate 107 H 107 H 112 H Respiratory Rate 31 H 18 26 H Blood Pressure 106/55 L 104/68 Pulse Oximetry 100 99 99 06/07/18 10:00 06/07/18 11:00 06/07/18 12:00 Temperature Pulse Rate 112 H 111 H 110 H Respiratory Rate 27 H 30 H 21 Blood Pressure 100/58 L 99/59 L 113/65 Pulse Oximetry 95 98 98 06/07/18 12:19 06/07/18 13:00 06/07/18 14:00 Temperature Pulse Rate 113 H 115 H 115 H Respiratory Rate 22 32 H 29 H Blood Pressure 143/77 H 115/69 Pulse Oximetry 99 93 L 06/07/18 15:00 06/07/18 15:49 06/07/18 16:00 Temperature Pulse Rate 117 H 118 H 119 H Respiratory Rate 27 H 20 31 H Blood Pressure 126/69 128/68 Pulse Oximetry 95 100 06/07/18 18:00 06/07/18 19:00 06/07/18 19:45 Temperature Pulse Rate 122 H 121 H 118 H Respiratory Rate 29 H 30 H 18 Blood Pressure 96/62 L 98/66 L Pulse Oximetry 96 95 99 06/07/18 20:00 06/07/18 22:00 06/08/18 00:00 Temperature 99.5 F Pulse Rate 120 H 115 H 104 H Respiratory Rate 29 H 22 Blood Pressure 127/66 108/62 Pulse Oximetry 99 100 06/08/18 00:24 06/08/18 02:00 06/08/18 03:57 Temperature Pulse Rate 104 H 104 H 101 H Respiratory Rate 18 20 Blood Pressure Pulse Oximetry 06/08/18 04:00 06/08/18 06:00 Temperature 99.5 F Pulse Rate 101 H 101 H Respiratory Rate 19 Blood Pressure 118/77 Pulse Oximetry 100 Intake & Output 06/07/18 06/08/18 06/08/18 18:59 06:59 18:59 Intake Total 550 / 550 300 / 300 Output Total 900 / 900 500 / 500 Balance -350 / -350 -200 / -200 Weight 58 kg Intake: IV 550 / 550 100 / 100 Azactam Inj 1,000 MG In NS Inj 200 / 200 100 / 100 100 ML @ 200 mls/hr IV.SIG Q8H [facility] Rx#:[id number] Vancomycin Inj 1,000 MG In NS 250 / 250 Inj 250 ML @ 250 mls/hr IV.SIG Q12H [facility] Rx#:[id number] Keppra 1000 mg/100 mL Premix 100 / 100 100 ML @ 400 mls/hr IV.SIG Q12H [facility] Rx#:[id number] Tube Feeding 0 / 0 Tube Irrigant 0 / 0 Water Bolus Amount 0 / 0 Other 200 / 200 Output: Urine Amount (Catheter) 900 / 900 450 / 450 Condom 900 / 900 450 / 450 Gastric Drainage 50 / 50 Left Nare 50 / 50 Other: Date of Last Bowel Movement 06/06/18 06/06/18 # Bowel Movements 1 Result Diagrams: 06/08/18 03:53 06/08/18 01:45 Other Results: Laboratory Results - last 12 hr 06/07/18 06/08/18 06/08/18 20:42 00:08 01:45 WBC RBC Hgb Hct MCV MCH MCHC RDW Plt Count MPV Neut % (Auto) Lymph % (Auto) [place] % (Auto) Eos % (Auto) Baso % (Auto) Neut # (Auto) Lymph # (Auto) [place] # (Auto) Eos # (Auto) Baso # (Auto) WBC Differential Differential Comment Sodium 150 H Potassium 3.4 L D Chloride 114 H Carbon Dioxide 29.8 Anion Gap 6 BUN 25 H Creatinine 0.56 L Estimated GFR Greater than 89 POC Glucose 108 106 Random Glucose 95 Calcium 8.1 L Total Bilirubin 1.2 H AST 128 H ALT 50 Alkaline Phosphatase 542 H Total Protein 5.7 L Albumin 1.3 L Vancomycin Trough 22.1 H 06/08/18 06/08/18 03:53 05:18 WBC 8.8 RBC 2.69 L Hgb 8.6 L Hct 25.9 L MCV 96.3 MCH 32.0 MCHC 33.2 RDW 18.2 H Plt Count 699 H MPV 7.8 Neut % (Auto) 71.2 H Lymph % (Auto) 13.4 [place] % (Auto) 13.8 H Eos % (Auto) 1.0 Baso % (Auto) 0.6 Neut # (Auto) 6.3 Lymph # (Auto) 1.2 [place] # (Auto) 1.2 H Eos # (Auto) 0.1 Baso # (Auto) 0.0 WBC Differential . Differential Comment Auto diff final Sodium Potassium Chloride Carbon Dioxide Anion Gap BUN Creatinine Estimated GFR POC Glucose 127 H Random Glucose Calcium Total Bilirubin AST ALT Alkaline Phosphatase Total Protein Albumin Vancomycin Trough Imaging: Laboratory Results - last 12 hr 06/07/18 06/08/18 06/08/18 20:42 00:08 01:45 WBC RBC Hgb Hct MCV MCH MCHC RDW Plt Count MPV Neut % (Auto) Lymph % (Auto) [place] % (Auto) Eos % (Auto) Baso % (Auto) Neut # (Auto) Lymph # (Auto) [place] # (Auto) Eos # (Auto) Baso # (Auto) WBC Differential Differential Comment Sodium 150 H Potassium 3.4 L D Chloride 114 H Carbon Dioxide 29.8 Anion Gap 6 BUN 25 H Creatinine 0.56 L Estimated GFR Greater than 89 POC Glucose 108 106 Random Glucose 95 Calcium 8.1 L Total Bilirubin 1.2 H AST 128 H ALT 50 Alkaline Phosphatase 542 H Total Protein 5.7 L Albumin 1.3 L Vancomycin Trough 22.1 H 06/08/18 06/08/18 03:53 05:18 WBC 8.8 RBC 2.69 L Hgb 8.6 L Hct 25.9 L MCV 96.3 MCH 32.0 MCHC 33.2 RDW 18.2 H Plt Count 699 H MPV 7.8 Neut % (Auto) 71.2 H Lymph % (Auto) 13.4 [place] % (Auto) 13.8 H Eos % (Auto) 1.0 Baso % (Auto) 0.6 Neut # (Auto) 6.3 Lymph # (Auto) 1.2 [place] # (Auto) 1.2 H Eos # (Auto) 0.1 Baso # (Auto) 0.0 WBC Differential . Differential Comment Auto diff final Sodium Potassium Chloride Carbon Dioxide Anion Gap BUN Creatinine Estimated GFR POC Glucose 127 H Random Glucose Calcium Total Bilirubin AST ALT Alkaline Phosphatase Total Protein Albumin Vancomycin Trough Objective Remarks: GENERAL: Patient is 72 yo lying in bed in NAD SKIN: Warm and dry. HEAD: Normocephalic. EYES: No scleral icterus. No injection or drainage. NECK: Supple, trachea midline. No JVD or lymphadenopathy. CARDIOVASCULAR: Regular rate and rhythm without murmurs, gallops, or rubs. RESPIRATORY: Breath sounds equal bilaterally. No accessory muscle use. GASTROINTESTINAL: Abdomen soft, non-tender, nondistended. MUSCULOSKELETAL: No cyanosis, or edema. Neuro: Awake. Assessment and Plan - Assessment and Plan Plan: Plan by systems: Neurologic: Alcohol dependence Alcohol withdrawal Seizure disorder with active seizures- improving. Medication noncompliance Acute combined toxic and metabolic encephalopathy- resolving. Frequent neurochecks Continue with Keppra per Neuro EEG 05/26: negative for ictal activity. generalized slowing. Repeat EEG ordered on 05/29 in view of tremors noted in right upper extremity. Neurology consult noted. On thiamine and multivitamins Head CT negative for acute disease 05/25. MRI brain: Remote left temporal infarct, atrophy 05/27 Respiratory: Acute hypoxic and hypercarbic respiratory failure Head of bed elevated Continue with oxygen keep sats >92% Bronchodilators, Cardiovascular: Monitor HR and BP keep MAP>65mmHg Renal: urinary retention - no indication for tubbs. straight cath q6h. Monitor renal function. I/O's, electrolytes replacement per protocol Change Free water 250ml Q8 monitor sodium level. FEN/GI: Alcoholic cirrhosis Acute protein calorie malnutritionsevere Severe hypokalemia- resolving. Acute intravascular volume depletion- resolving. Hyponatremia- resolved Dehydration- resolving. ICU electrolyte protocol NPO by speech, continue tube feeds - Jevity 1.5 with goal rate 60ml/hr ID: UTI noted. Urine cx: Kleb pneumonia on 05/29, Continue Aztreonam and Vanco, 06/04, Urine, Blood culture, sputum cx: NGTD ID is following. Heme: Monitor CBC, s/p transfuse 2u PRBC 06/04. Endocrine: Hyperglycemia of critical illness -- SSI Prophylaxis: GI Prophylaxis Pepcid DVT Prophylaxis -- SCDs Lovenox held for anemia requiring blood transfusion Lines: Peripheral IVs Tubbs Palliative care is following Will sign off and transfer care to [facility] 2
[2018-06-08] MEDS: Senna/Docusate Sodium 8.6/50 MG Tablet PO SCH ×2 (08:04→22:12)
[2018-06-08] MEDS: Potassium Chlor 20 mEq Premix 20 MEQ/100 ML PIGGYBACK IV.SIG PRN ×2 (08:04→10:40)
[2018-06-08] MEDS: Chlorhexidine 0.12% Oral Kit 15 ML UDC OROPHARYNG SCH ×2 (08:05→22:11)
[2018-06-08] MEDS: Famotidine PF Inj 20 MG/2 ML Vial IV.PUSH SCH ×2 (08:15→16:00)
--- NOTE | 2018-06-08 08:21 | P.PNNEU ---
Subjective Subjective Comments: No acute events reported Active Medications: Active Medications Acetaminophen (Tylenol Liq) 650 mg PO Q6H PRN PRN Reason: SEE DOSE INSTRUCTIONS Last Admin: 06/05/18 04:47 Dose: 650 mg Acetylcysteine (Mucomyst 10% Neb) 2 ml NEB Q4HR NEB [facility] [place] Last Admin: 06/08/18 07:25 Dose: 2 ml Al Hydroxide/Mg Hydroxide (Milk Of Magnesia Liq) 30 ml PO Q12H PRN PRN Reason: Mild Constipation Albuterol (Duoneb Neb (Prn)) 1 ampul NEB Q2HR NEB PRN PRN Reason: WHEEZING Albuterol (Duoneb Neb (Leigha)) 1 ampul NEB Q4HR NEB [facility] [place] Last Admin: 06/08/18 07:25 Dose: 1 ampul Albuterol (Duoneb Neb (Leigha)) 1 ampul NEB Q4HR NEB [facility] [place] Last Admin: 06/08/18 01:07 Dose: Not Given Bisacodyl (Dulcolax Supp) 10 mg RECTAL DAILY PRN PRN Reason: SEVERE CONSITIPATION Chlorhexidine Gluconate (Peridex 0.12% Oral Kit) 15 ml OROPHARYNG BID@0800, 2000 [facility] [place] Last Admin: 06/08/18 08:05 Dose: 15 ml Dextrose (D50w Vial) 50 ml IV.PUSH UNSCH PRN PRN Reason: PER HYPOGLYCEMIA PROTOCOL Enoxaparin Sodium (Lovenox Inj) 40 mg SQ Q24H [facility] [place] Last Admin: 06/03/18 20:29 Dose: 40 mg Famotidine (Pepcid Pf Inj) 20 mg IV.PUSH Q8H [facility] [place] Last Admin: 06/08/18 08:15 Dose: 20 mg Flumazenil (Romazecon Inj) 0.2 mg IV.PUSH Q1M PRN PRN Reason: OVERSEDATION Glucagon (Glucagon Inj) 1 mg OTHER PRN PRN PRN Reason: for Hypoglycemia Protocol Magnesium Sulfate Inj 4 gm/ (Sodium Chloride) 100 mls @ 50 mls/hr IV.SIG UNSCH PRN PRN Reason: For Magnesium 0.9 - 1.1 mg/dL Magnesium Sulfate Inj 2 gm/ (Sodium Chloride) 100 mls @ 50 mls/hr IV.SIG UNSCH PRN PRN Reason: For Magnesium 1.2 - 1.6 mg/dL Last Infusion: 06/04/18 07:00 Dose: Infused Potassium Chloride (Kcl 40 Meq Premix Inj) 40 meq in 100 mls @ 25 mls/hr IV.SIG Q2H PRN PRN Reason: For Potassium 2.8 - 3.2 mEq/L Potassium Chloride (Kcl 40 Meq Premix Inj) 40 meq in 100 mls @ 25 mls/hr IV.SIG UNSCH PRN PRN Reason: For Potassium 3.3 - 3.5 mEq/L Potassium Chloride (Kcl 20 Meq Premix Inj) 20 meq in 100 mls @ 50 mls/hr IV.SIG Q2H PRN PRN Reason: For Potassium 2.8 - 3.2 mEq/L Potassium Phosphate 30 mmol/ (Sodium Chloride) 260 mls @ 42 mls/hr IV.SIG UNSCH PRN PRN Reason: SEE LABEL COMMENTS Sodium Phosphate 30 mmol/ (Sodium Chloride) 260 mls @ 42 mls/hr IV.SIG UNSCH PRN PRN Reason: For Phosphorus < 2.5 mg/dL Last Infusion: 05/27/18 14:58 Dose: Infused Potassium Chloride (Kcl 20 Meq Premix Inj) 20 meq in 100 mls @ 50 mls/hr IV.SIG Q2H PRN PRN Reason: For Potassium 3.3 - 3.5 mEq/L Last Admin: 06/08/18 08:04 Dose: 35 mls/hr Levetiracetam (Keppra 1000 Mg/100 Ml Premix) 100 mls @ 400 mls/hr IV.SIG Q12H [facility] Last Admin: 06/08/18 00:58 Dose: 400 mls/hr Aztreonam 1,000 mg/ Sodium (Chloride) 100 mls @ 200 mls/hr IV.SIG Q8H [facility] Last Admin: 06/08/18 05:08 Dose: 200 mls/hr Pharmacy Profile Note (Vancomycin Consult Pharmacy) 0 mls @ 0 mls/hr OTHER UNSCH [facility] [place] Vancomycin HCl 1,000 mg/ (Sodium Chloride) 250 mls @ 250 mls/hr IV.SIG Q12H [facility] Last Admin: 06/08/18 05:15 Dose: Not Given Insulin Human Regular (Novolin R Correctional Sugar Inj) 0 units SQ Q6HR [facility]; Protocol Last Admin: 06/08/18 05:20 Dose: Not Given Lactulose (Lactulose Liq) 30 ml PO DAILY PRN PRN Reason: SEVERE CONSITIPATION Magnesium Oxide (Mag-Ox) 800 mg PO UNSCH PRN PRN Reason: For Magnesium 1.2 - 1.6 mg/dL Miscellaneous (Pill Splitter) 1 each OTHER UNSCH PRN PRN Reason: PILL SPLITTER Ondansetron HCl (Zofran Inj) 4 mg IV.PUSH Q6H PRN PRN Reason: NAUSEA OR VOMITING Potassium Bicarb/Potassium Chloride (K-Lyte Cl Eff) 50 meq PO UNSCH PRN PRN Reason: For Potassium 3.3 - 3.5 mEq/L Last Admin: 05/26/18 11:33 Dose: 50 meq Potassium Phosphate (K-Phos Original) 2,000 mg PO Q4H PRN PRN Reason: Phosphorus Less Than 2.5 mg/dL Last Admin: 05/31/18 17:47 Dose: 2,000 mg Potassium Phosphate (K-Phos Original) 2,000 mg PO UNSCH PRN PRN Reason: SEE LABEL COMMENTS Senna/Docusate Sodium (Anupama-Colace) 1 tab PO BID [facility] [place] Last Admin: 06/08/18 08:04 Dose: 1 tab Sennosides (Senokot) 17.2 mg PO Q12H PRN PRN Reason: Moderate Constipation Sodium Chloride (Ns Flush) 2 ml IV.FLUSH BID [facility] [place] Last Admin: 06/08/18 08:05 Dose: 2 ml Sodium Chloride (Ns Flush) 2 ml IV.FLUSH PRN PRN PRN Reason: FLUSH AFTER USING IV ACCESS Last Admin: 06/01/18 00:10 Dose: 2 ml Sterile Water (Free Water) 250 ml G-TUBE Q12HR [facility] [place] Last Admin: 06/08/18 08:06 Dose: 250 ml Thiamine HCl (Vitamin B1) 100 mg PO DAILY [facility] [place] Last Admin: 06/08/18 08:04 Dose: 100 mg Allergies/Adverse Reactions: Allergies Allergy/AdvReac Type Severity Reaction Status Date / Time Unable to Assess Allergy Unknown Unconscious Verified 05/25/18 17:12 Physical Exam Vital signs: Vital Signs 06/07/18 09:00 06/07/18 10:00 06/07/18 11:00 Temperature Pulse Rate 112 H 112 H 111 H Respiratory Rate 26 H 27 H 30 H Blood Pressure 104/68 100/58 L 99/59 L Pulse Oximetry 99 95 98 08/11/18 12:00 06/07/18 12:19 06/07/18 13:00 Temperature Pulse Rate 110 H 113 H 115 H Respiratory Rate 21 22 32 H Blood Pressure 113/65 143/77 H Pulse Oximetry 98 99 06/07/18 14:00 06/07/18 15:00 06/07/18 15:49 Temperature Pulse Rate 115 H 117 H 118 H Respiratory Rate 29 H 27 H 20 Blood Pressure 115/69 126/69 Pulse Oximetry 93 L 95 06/07/18 16:00 06/07/18 18:00 06/07/18 19:00 Temperature Pulse Rate 119 H 122 H 121 H Respiratory Rate 31 H 29 H 30 H Blood Pressure 128/68 96/62 L 98/66 L Pulse Oximetry 100 96 95 06/07/18 19:45 06/07/18 20:00 06/07/18 22:00 Temperature Pulse Rate 118 H 120 H 115 H Respiratory Rate 18 29 H Blood Pressure 127/66 Pulse Oximetry 99 99 06/08/18 00:00 06/08/18 00:24 06/08/18 02:00 Temperature 99.5 F Pulse Rate 104 H 104 H 104 H Respiratory Rate 22 18 Blood Pressure 108/62 Pulse Oximetry 100 06/08/18 03:57 06/08/18 04:00 06/08/18 06:00 Temperature 99.5 F Pulse Rate 101 H 101 H 101 H Respiratory Rate 20 19 Blood Pressure 118/77 Pulse Oximetry 100 06/08/18 07:25 Temperature Pulse Rate 103 H Respiratory Rate 20 Blood Pressure Pulse Oximetry 100 Intake & Output 06/07/18 06/08/18 06/08/18 18:59 06:59 18:59 Intake Total 550 / 550 300 / 300 Output Total 900 / 900 500 / 500 Balance -350 / -350 -200 / -200 Weight 58 kg Intake: IV 550 / 550 100 / 100 Azactam Inj 1,000 MG In NS Inj 200 / 200 100 / 100 100 ML @ 200 mls/hr IV.SIG Q8H [facility] Rx#:[id number] Vancomycin Inj 1,000 MG In NS 250 / 250 Inj 250 ML @ 250 mls/hr IV.SIG Q12H [facility] Rx#:[id number] Keppra 1000 mg/100 mL Premix 100 / 100 100 ML @ 400 mls/hr IV.SIG Q12H [facility] [place] Rx#:[id number] Tube Feeding 0 / 0 Tube Irrigant 0 / 0 Water Bolus Amount 0 / 0 Other 200 / 200 Output: Urine Amount (Catheter) 900 / 900 450 / 450 Condom 900 / 900 450 / 450 Gastric Drainage 50 / 50 Left Nare 50 / 50 Other: Date of Last Bowel Movement 06/06/18 06/06/18 # Bowel Movements 1 Narrative: awake not following commands for me makes eye contact moving bue well not so much legs thick mucous cannot speak for me - Urinary Catheter Management Indwelling Urethral Catheter Cath placed during this visit: yes, but has since been removed by the nurse Reason for continuing: Not indwelling catheter Insertion date: 05/25/18 Insertion time: 15:00 Removal date: 05/26/18 Removal time: 12:00 Straight Cath placed during this visit: yes Reason for continuing: Not indwelling catheter Insertion date: 06/05/18 Insertion time: 00:20 Condom Cath placed during this visit: no Reason for continuing: Not indwelling catheter Objective Laboratory Results - last 24 hr 06/07/18 06/07/18 06/07/18 08:00 08:58 11:04 WBC 10.8 RBC 2.82 L Hgb 9.1 L Hct 27.1 L MCV 96.3 MCH 32.4 MCHC 33.7 RDW 18.7 H Plt Count 659 H MPV 7.9 Neut % (Auto) 77.9 H Lymph % (Auto) 9.7 [place] % (Auto) 11.5 H Eos % (Auto) 0.4 Baso % (Auto) 0.5 Neut # (Auto) 8.4 H Lymph # (Auto) 1.0 [place] # (Auto) 1.2 H Eos # (Auto) 0.0 Baso # (Auto) 0.1 WBC Differential . Differential Comment Auto diff final Puncture Site Right radial Patient Temperature 98.6 O2 Saturation 96 ABG pH 7.48 H ABG pCO2 38 ABG pO2 99 ABG HCO3 28 H ABG O2 Content 13.5 ABG Base Excess 4.4 H ABG Methemoglobin 1.2 Jim Test Present Hemoglobin 9.9 L Carboxyhemoglobin 1.2 O2 Delivery Device Nasal cannula Liter Flow 2.00 Inspired O2 21 Critical Value No Sodium Potassium Chloride Carbon Dioxide Anion Gap BUN Creatinine Estimated GFR POC Glucose 148 H Random Glucose Calcium Total Bilirubin AST ALT Alkaline Phosphatase Total Protein Albumin Vancomycin Trough 06/07/18 06/08/18 06/08/18 20:42 00:08 01:45 WBC RBC Hgb Hct MCV MCH MCHC RDW Plt Count MPV Neut % (Auto) Lymph % (Auto) [place] % (Auto) Eos % (Auto) Baso % (Auto) Neut # (Auto) Lymph # (Auto) [place] # (Auto) Eos # (Auto) Baso # (Auto) WBC Differential Differential Comment Puncture Site Patient Temperature O2 Saturation ABG pH ABG pCO2 ABG pO2 ABG HCO3 ABG O2 Content ABG Base Excess ABG Methemoglobin Jim Test Hemoglobin Carboxyhemoglobin O2 Delivery Device Liter Flow Inspired O2 Critical Value Sodium 150 H Potassium 3.4 L D Chloride 114 H Carbon Dioxide 29.8 Anion Gap 6 BUN 25 H Creatinine 0.56 L Estimated GFR Greater than 89 POC Glucose 108 106 Random Glucose 95 Calcium 8.1 L Total Bilirubin 1.2 H AST 128 H ALT 50 Alkaline Phosphatase 542 H Total Protein 5.7 L Albumin 1.3 L Vancomycin Trough 22.1 H 06/08/18 06/08/18 06/08/18 03:53 05:18 08:16 WBC 8.8 RBC 2.69 L Hgb 8.6 L Hct 25.9 L MCV 96.3 MCH 32.0 MCHC 33.2 RDW 18.2 H Plt Count 699 H MPV 7.8 Neut % (Auto) 71.2 H Lymph % (Auto) 13.4 [place] % (Auto) 13.8 H Eos % (Auto) 1.0 Baso % (Auto) 0.6 Neut # (Auto) 6.3 Lymph # (Auto) 1.2 [place] # (Auto) 1.2 H Eos # (Auto) 0.1 Baso # (Auto) 0.0 WBC Differential . Differential Comment Auto diff final Puncture Site Patient Temperature O2 Saturation ABG pH ABG pCO2 ABG pO2 ABG HCO3 ABG O2 Content ABG Base Excess ABG Methemoglobin Jim Test Hemoglobin Carboxyhemoglobin O2 Delivery Device Liter Flow Inspired O2 Critical Value Sodium Potassium Chloride Carbon Dioxide Anion Gap BUN Creatinine Estimated GFR POC Glucose 127 H 103 Random Glucose Calcium Total Bilirubin AST ALT Alkaline Phosphatase Total Protein Albumin Vancomycin Trough Microbiology 06/05/18 17:40 Aerobic Blood Culture - Preliminary Blood - Peripheral No growth in 2 days Anaerobic Blood Culture - Preliminary No growth in 2 days 08/09/18 17:46 Aerobic Blood Culture - Preliminary Blood - Peripheral No growth in 2 days Anaerobic Blood Culture - Preliminary No growth in 2 days 06/04/18 09:50 Aerobic Blood Culture - Preliminary Blood - Peripheral No growth in 3 days Anaerobic Blood Culture - Preliminary No growth in 3 days Review/Management - Review/Management Plan: imp mri and eeg neg on keppra hold all sedatives could be prolonged postictal will fu saturday see if awakens over next few days no apparent reason why he would not - 06/02/18 much better should do well keppra off vent when able 06/05/18 no sz he should bounce back neurowise to prior level of functioning keppra stable neuro 06/07/18 no sz on keppra 1000 bid eeg neg check abg for some inc ms change may need peg? i dw sone no etoh and needs to take his meds lives w daughter she should see that he does 06/08/18 have PT oob recheck eeg lower keppra to 750 bid should be making progress ? chest PT getting dehydrated na 150
[2018-06-08] MEDS: LEVETIRACETAM IV.SIG SCH (13:00)
[2018-06-08] MEDS: SODIUM CHLOR 0.9% IV.SIG SCH (13:00)
[2018-06-08] MEDS ORDERED: Vancomycin Inj 1,250 MG in Sodium Chlor 0.9% Inj 250 ML IV.SIG SCH ×2 (14:00)
--- NOTE | 2018-06-08 21:07 | XR ---
EXAM DATE: 06/08/2018 9:00 PM EDT AGE/SEX: 72 years / Male INDICATIONS: NG tube placement. CLINICAL DATA: This is the patient's initial encounter. Patient reports that signs and symptoms have been present for 1 day and indicates a pain score of Nonresponsive. MEDICAL/SURGICAL HISTORY: Non-responsive. Non-responsive. COMPARISON: [facility], CHEST 1V SINGLE AP, 06/07/2018. . FINDINGS: Single AP view of the abdomen. Nasogastric tube is in place with the tip in the distal stomach. Side- port is in the proximal stomach. Elevation of the left hemidiaphragm. CONCLUSION: Nasogastric tube tip in the distal stomach. Electronically signed by: Ted Dye MD 06/08/2018 9:06 PM EDT
--- NOTE | 2018-06-08 21:54 | MG ---
cc: Marc Johnson MD EEG NUMBER: [id number] HISTORY OF PRESENT ILLNESS: Seizures, left temporal lobe abnormality, change in mental status. Currently shows a 7 Hz diffuse rhythm, some blood pressure cuff artifact is noted and a bifrontal muscle artifact is seen in the bitemporal. At times diffuse 4 Hz slowing is noted, a little bit slower on the left than the right temporal head region. Photic stimulation is performed without significant posterior driving. An arm jerk was seen, but just shows muscle artifact. Head movement is seen, which causes some slowing in the occipital head region at times, appearing slightly sharp, but probably I think it is more just artifact. IMPRESSION: Diffuse slowing. I do not see any definite seizure activity consistent with a moderate diffuse encephalopathy. Marc Johnson MD DJM/te/ll , 05:53 PM , 05:58 PM
[2018-06-09] MEDS: SODIUM CHLOR 0.9% IV.SIG SCH ×2 (00:33→12:38)
[2018-06-09] MEDS: LEVETIRACETAM IV.SIG SCH ×2 (00:33→12:38)
[2018-06-09] MEDS: Famotidine PF Inj 20 MG/2 ML Vial IV.PUSH SCH ×3 (00:34→18:05)
[2018-06-09] MEDS: Oral Hygiene Kit OROPHARYNG SCH ×4 (00:34→18:05)
[2018-06-09] MEDS: Insulin NovoLIN Regular Correctional Sugar Inj SQ SCH ×4 (00:39→18:13)
[2018-06-09 07:17] LABS: Baso # (Auto) 0.1 th/mm3 (0.0-0.2); Eos # (Auto) 0.1 th/mm3 (0.0-0.4); Eos % (Auto) 0.9 % (0.0-4.0); Hematocrit 25.8 % (39.0-51.0); Hemoglobin 8.6 gm/dL (13.0-17.0); Lymph # (Auto) 1.3 th/mm3 (1.0-4.8); Lymph % (Auto) 17.1 % (9.0-44.0); Mean Corpuscular HGB Conc 33.2 % (32.0-36.0); Mean Corpuscular Hemoglobin 31.8 pg (27.0-34.0); Mean Corpuscular Volume 95.8 fL (80.0-100.0); Mean Platelet Volume 7.9 fL (7.0-11.0); Mono # (Auto) 0.9 th/mm3 (0.0-0.9); Mono % (Auto) 11.6 % (0.0-8.0); Neut # (Auto) 5.3 th/mm3 (1.8-7.7); Neut % (Auto) 69.4 % (16.0-70.0); Platelet Count 847 th/mm3 (150-450); Red Cell Distribution Width 18.6 % (11.6-17.2); White Blood Count 7.7 th/mm3 (4.0-11.0)
[2018-06-09 07:46] LABS: Albumin 1.4 g/dL (3.4-5.0); Anion Gap 8 meq/L (5-15); Aspartate Aminotransferase 73 U/L (15-37); Blood Urea Nitrogen 21 mg/dL (7-18); Calcium 8.5 mg/dL (8.5-10.1); Carbon Dioxide 27.1 meq/L (21.0-32.0); Chloride 117 meq/L (98-107); Glomerular Filtration Rate Greater Than 89 mL/min (>89); Glucose,Random 88 mg/dL (74-106); Potassium 3.9 meq/L (3.5-5.1); Sodium 152 meq/L (136-145)
[2018-06-09 07:50] LABS: Alanine Aminotransferase 37 U/L (12-78); Alkaline Phosphatase 690 U/L (45-117); Total Protein 5.7 g/dL (6.4-8.2)
[2018-06-09 08:23] LABS: Eosinophils 1 % (0-4); Lymphocytes 10 % (9-44); Monocytes 12 % (0-8); Myelocytes 1 % (0-0); Spherocytes Occ; Toxic Vacuolation Present
[2018-06-09 08:24] LABS: Platelet Morphology Clumped (Normal)
--- NOTE | 2018-06-09 08:46 | P.PNIM ---
Subjective Interval history: Nursing reports no changes in mental status. Continues to be agitated and does not allow a good comprehensive exam. Does not follow directions or commands. Physical Exam Vital signs: Vital Signs 06/08/18 09:00 06/08/18 10:00 06/08/18 11:00 Temperature Pulse Rate 101 H 100 H 98 H Respiratory Rate 22 20 29 H Blood Pressure 97/56 L 99/62 L 102/67 Pulse Oximetry 94 L 100 100 06/08/18 11:20 06/08/18 12:00 06/08/18 13:00 Temperature Pulse Rate 97 H 102 H 103 H Respiratory Rate 19 28 H 25 H Blood Pressure 118/63 Pulse Oximetry 87 L 94 L 06/08/18 14:00 06/08/18 14:01 06/08/18 15:00 Temperature Pulse Rate 101 H 102 H 104 H Respiratory Rate 24 22 Blood Pressure 113/62 129/59 L Pulse Oximetry 96 96 06/08/18 16:00 06/08/18 16:01 06/08/18 17:00 Temperature Pulse Rate 104 H 104 H 108 H Respiratory Rate 24 18 24 Blood Pressure 105/63 109/69 Pulse Oximetry 99 97 06/08/18 18:00 06/08/18 19:50 06/08/18 20:00 Temperature 99.5 F Pulse Rate 110 H 105 H 103 H Respiratory Rate 27 H 18 22 Blood Pressure 109/64 103/63 Pulse Oximetry 98 98 98 06/08/18 22:00 06/08/18 23:43 06/09/18 00:00 Temperature 99.3 F Pulse Rate 108 H 106 H 107 H Respiratory Rate 20 16 Blood Pressure 108/55 L Pulse Oximetry 95 06/09/18 02:00 06/09/18 03:44 06/09/18 04:00 Temperature 99.5 F Pulse Rate 103 H 105 H 105 H Respiratory Rate 16 20 Blood Pressure 89/60 L Pulse Oximetry 96 06/09/18 06:00 06/09/18 07:32 Temperature Pulse Rate 106 H Respiratory Rate Blood Pressure Pulse Oximetry 99 Intake & Output 06/08/18 06/09/18 06/09/18 18:59 06:59 18:59 Intake Total 300 / 300 652 / 652 Output Total 525 / 525 500 / 500 Balance -225 / -225 152 / 152 Weight 58 kg Intake: IV 300 / 300 100 / 100 Azactam Inj 1,000 MG In NS Inj 100 / 100 100 / 100 100 ML @ 200 mls/hr IV.SIG Q8H [facility] Rx#:[id number] KCl 20 mEq Premix Inj 20 meq In 100 / 100 100 ml @ 50 mls/hr IV.SIG Q2H [facility] Rx#:[id number] Keppra Inj 750 MG In NS Inj 100 100 / 100 ML @ 430 mls/hr IV.SIG Q12H [facility] Rx#:[id number] Tube Feeding 352 / 352 Tube Irrigant 0 / 0 Water Bolus Amount 200 / 200 Output: Urine Amount (Catheter) 525 / 525 450 / 450 Condom 525 / 525 450 / 450 Gastric Drainage 50 / 50 Left Nare 50 / 50 Other: Date of Last Bowel Movement 06/06/18 06/06/18 Narrative: GENERAL: This is a well-nourished, well-developed patient, agitated does not follow commands. CARDIOVASCULAR: Regular rate and rhythm RESPIRATORY: Clear to auscultation. Breath sounds equal bilaterally. No wheezes , rales, or rhonchi. NEURO: Agitated does not follow commands. - Urinary Catheter Management Indwelling Urethral Catheter Cath placed during this visit: yes, but has since been removed by the nurse Reason for continuing: Not indwelling catheter Insertion date: 05/25/18 Insertion time: 15:00 Removal date: 05/26/18 Removal time: 12:00 Straight Cath placed during this visit: yes Reason for continuing: Not indwelling catheter Insertion date: 06/05/18 Insertion time: 00:20 Condom Cath placed during this visit: no Reason for continuing: Not indwelling catheter Results - Labs CBC & Chem 7: 06/09/18 05:03 06/09/18 05:03 Laboratory Results - last 24 hr 06/08/18 06/08/18 06/08/18 12:33 18:35 19:52 WBC RBC Hgb Hct MCV MCH MCHC RDW Plt Count MPV Prelim Diff (Auto) Neut % (Auto) Lymph % (Auto) [place] % (Auto) Eos % (Auto) Baso % (Auto) Neut # (Auto) Lymph # (Auto) [place] # (Auto) Eos # (Auto) Baso # (Auto) WBC Differential Seg Neuts % (Manual) Band Neuts % (Manual) Lymphocytes % (Manual) Monocytes % (Manual) Eosinophils % (Manual) Myelocytes % (Man) Abs Neuts (Manual) Differential Comment Toxic Vacuolation Platelet Estimate Platelet Morphology Spherocytes Sodium Potassium Chloride Carbon Dioxide Anion Gap BUN Creatinine Estimated GFR POC Glucose 119 H 108 100 Random Glucose Calcium Total Bilirubin AST ALT Alkaline Phosphatase Total Protein Albumin 06/08/18 06/09/18 06/09/18 19:54 00:24 05:02 WBC RBC Hgb Hct MCV MCH MCHC RDW Plt Count MPV Prelim Diff (Auto) Neut % (Auto) Lymph % (Auto) [place] % (Auto) Eos % (Auto) Baso % (Auto) Neut # (Auto) Lymph # (Auto) [place] # (Auto) Eos # (Auto) Baso # (Auto) WBC Differential Seg Neuts % (Manual) Band Neuts % (Manual) Lymphocytes % (Manual) Monocytes % (Manual) Eosinophils % (Manual) Myelocytes % (Man) Abs Neuts (Manual) Differential Comment Toxic Vacuolation Platelet Estimate Platelet Morphology Spherocytes Sodium Potassium 4.2 D Chloride Carbon Dioxide Anion Gap BUN Creatinine Estimated GFR POC Glucose 84 106 Random Glucose Calcium Total Bilirubin AST ALT Alkaline Phosphatase Total Protein Albumin 06/09/18 06/09/18 06/09/18 05:03 05:03 08:29 WBC 7.7 RBC 2.70 L Hgb 8.6 L Hct 25.8 L MCV 95.8 MCH 31.8 MCHC 33.2 RDW 18.6 H Plt Count 847 H MPV 7.9 Prelim Diff (Auto) Slide review pending Neut % (Auto) 69.4 Lymph % (Auto) 17.1 [place] % (Auto) 11.6 H Eos % (Auto) 0.9 Baso % (Auto) 1.0 Neut # (Auto) 5.3 Lymph # (Auto) 1.3 [place] # (Auto) 0.9 Eos # (Auto) 0.1 Baso # (Auto) 0.1 WBC Differential Manual diff final Seg Neuts % (Manual) 73 H Band Neuts % (Manual) 3 Lymphocytes % (Manual) 10 Monocytes % (Manual) 12 H Eosinophils % (Manual) 1 Myelocytes % (Man) 1 H Abs Neuts (Manual) 5.9 Differential Comment . Toxic Vacuolation Present H Platelet Estimate High H Platelet Morphology Clumped H Spherocytes Occ H Sodium 152 H Potassium 3.9 Chloride 117 H Carbon Dioxide 27.1 Anion Gap 8 BUN 21 H Creatinine 0.53 L Estimated GFR Greater than 89 POC Glucose 163 H Random Glucose 88 Calcium 8.5 Total Bilirubin 0.8 AST 73 H ALT 37 Alkaline Phosphatase 690 H Total Protein 5.7 L Albumin 1.4 L Microbiology 06/05/18 17:40 Blood - Peripheral Aerobic Blood Culture - Preliminary No growth in 3 days 06/05/18 17:40 Blood - Peripheral Anaerobic Blood Culture - Preliminary No growth in 3 days 06/05/18 17:46 Blood - Peripheral Aerobic Blood Culture - Preliminary No growth in 3 days 06/05/18 17:46 Blood - Peripheral Anaerobic Blood Culture - Preliminary No growth in 3 days 06/04/18 09:50 Blood - Peripheral Aerobic Blood Culture - Preliminary No growth in 4 days 06/04/18 09:50 Blood - Peripheral Anaerobic Blood Culture - Preliminary No growth in 4 days - Imaging Impressions Abdomen X-Ray 06/08/18 00:00 CONCLUSION: Nasogastric tube tip in the distal stomach. Assessment and Plan - Plan Alcohol dependence Alcohol withdrawal Seizure disorder with active seizures- improving. Medication noncompliance Acute combined toxic and metabolic encephalopathy-persist. Frequent neurochecks with continued agitation and confusion. Continue with Keppra per Neuro EEG 05/26: negative for ictal activity. generalized slowing. Repeat EEG ordered on 05/29 in view of tremors noted in right upper extremity. Appreciate neurology consultation and recommendations. On thiamine and multivitamins Head CT negative for acute disease 05/25. MRI brain: Remote left temporal infarct, atrophy 05/27 Repeat ammonia level in the morning. Acute hypoxic and hypercarbic respiratory failure Head of bed elevated Continue with oxygen support and keep sats >92% Bronchodilators, urinary retention - no indication for tubbs. straight cath q6h. Monitor renal function. I/O's, electrolytes replacement per protocol Hypernatremia Change Free water increased to 200 every 6 hour due to hypernatremia Alcoholic cirrhosis Acute protein calorie malnutritionsevere Severe hypokalemia- resolving.Replete today Acute intravascular volume depletion- resolving. Hyponatremia- resolved and now with hypernatremia Dehydration- resolving. ICU electrolyte protocol NPO by speech, continue tube feeds - Jevity 1.5 with goal rate 60ml/hr Repeat swallow evaluation today Healthcare acquired pneumonia UTI noted. Urine cx: Kleb pneumonia on 05/29, Continue Aztreonam and Vanco per ID, day number #5 06/04, Urine, Blood culture, sputum cx: NGTD ID is following. Leukocytosis trending down Anemia, chronic likely due to history of cirrhosis and chronic disease monitor CBC, s/p transfuse 2u PRBC 06/04. Hyperglycemia of critical illness -- SSI Prophylaxis: GI Prophylaxis Pepcid DVT Prophylaxis -- SCDs Lovenox held for anemia requiring blood transfusion Lines: Peripheral IVs Palliative care is following Overall poor long-term prognosis Transfer out of ICU
[2018-06-09] MEDS: Chlorhexidine 0.12% Oral Kit 15 ML UDC OROPHARYNG SCH ×2 (10:17→22:00)
[2018-06-09] MEDS: Senna/Docusate Sodium 8.6/50 MG Tablet PO SCH ×2 (10:17→22:00)
--- NOTE | 2018-06-09 14:43 | P.PNID ---
Subjective Remarks: Patient is on O2 via nasal cannula.. He awakens and he is following commands. Moves extremities to command. He appears lethargic and somewhat confused. Afebrile. Noted to have thick dark brown to beard secretions. ID consulted for fevers, pneumonia, worsening leukocytosis. This is a 72-year-old male who was brought to the emergency department after he was found to be having grand mal seizures. The patient was intubated and admitted to the intensive care unit. The patient has increased white blood cell count and fever. Past Medical History: PAST MEDICAL HISTORY: Multiple strokes, seizure disorder, alcoholic liver disease. Allergies/Adverse Reactions: Allergies Unable to Assess Allergy (Unknown, Verified 05/25/18 17:12) Unconscious Objective Vital Signs 06/08/18 15:00 06/08/18 16:00 06/08/18 16:01 Temperature Pulse Rate 104 H 104 H 104 H Respiratory Rate 22 24 18 Blood Pressure 129/59 L 105/63 Pulse Oximetry 96 99 06/08/18 17:00 06/08/18 18:00 06/08/18 19:00 Temperature Pulse Rate 108 H 110 H 109 H Respiratory Rate 24 27 H 23 Blood Pressure 109/69 109/64 109/64 Pulse Oximetry 97 98 97 06/08/18 19:50 06/08/18 20:00 06/08/18 21:00 Temperature 99.5 F Pulse Rate 105 H 103 H 109 H Respiratory Rate 18 22 20 Blood Pressure 103/63 115/59 L Pulse Oximetry 98 98 99 06/08/18 22:00 06/08/18 23:00 06/08/18 23:43 Temperature Pulse Rate 108 H 106 H 106 H Respiratory Rate 18 15 20 Blood Pressure 112/68 119/68 Pulse Oximetry 99 98 06/09/18 00:00 06/09/18 01:00 06/09/18 02:00 Temperature 99.3 F Pulse Rate 107 H 107 H 103 H Respiratory Rate 16 19 12 Blood Pressure 108/55 L 112/58 L 113/59 L Pulse Oximetry 95 98 98 06/09/18 03:00 06/09/18 03:44 06/09/18 04:00 Temperature 99.5 F Pulse Rate 102 H 105 H 105 H Respiratory Rate 23 16 20 Blood Pressure 105/60 89/60 L Pulse Oximetry 98 96 06/09/18 04:03 06/09/18 05:00 06/09/18 06:00 Temperature Pulse Rate 105 H 104 H 106 H Respiratory Rate 17 18 Blood Pressure 93/55 L 101/56 L 109/66 Pulse Oximetry 97 100 99 06/09/18 07:00 06/09/18 07:32 06/09/18 08:00 Temperature Pulse Rate 103 H 106 H Respiratory Rate 25 H 30 H Blood Pressure 117/66 133/62 Pulse Oximetry 97 99 97 06/09/18 09:00 06/09/18 10:00 06/09/18 11:00 Temperature Pulse Rate 105 H 104 H 104 H Respiratory Rate 29 H 18 16 Blood Pressure 120/81 109/68 111/57 L Pulse Oximetry 99 99 97 06/09/18 11:23 06/09/18 12:00 06/09/18 13:00 Temperature Pulse Rate 105 H 111 H 107 H Respiratory Rate 18 18 25 H Blood Pressure 107/63 107/59 L Pulse Oximetry 94 L 96 06/09/18 14:00 06/09/18 14:15 Temperature Pulse Rate 107 H 107 H Respiratory Rate 27 H 20 Blood Pressure 111/60 Pulse Oximetry 96 Intake & Output 06/08/18 06/09/18 06/09/18 18:59 06:59 18:59 Intake Total 300 / 300 859.5 / 859.5 Output Total 525 / 525 500 / 500 Balance -225 / -225 359.5 / 359.5 Weight 58 kg Intake: IV 300 / 300 307.5 / 307.5 Azactam Inj 1,000 MG In NS Inj 100 / 100 200 / 200 100 ML @ 200 mls/hr IV.SIG Q8H [facility] Rx#:[id number] KCl 20 mEq Premix Inj 20 meq In 100 / 100 100 ml @ 50 mls/hr IV.SIG Q2H [facility] Rx#:[id number] Keppra Inj 750 MG In NS Inj 100 100 / 100 107.5 / 107.5 ML @ 430 mls/hr IV.SIG Q12H [facility] Rx#:[id number] Tube Feeding 352 / 352 Tube Irrigant 0 / 0 Water Bolus Amount 200 / 200 Output: Urine Amount (Catheter) 525 / 525 450 / 450 Condom 525 / 525 450 / 450 Gastric Drainage 50 / 50 Left Nare 50 / 50 Other: Date of Last Bowel Movement 08/10/18 06/06/18 06/06/18 06/05/18 17:40 Blood - Peripheral Aerobic Blood Culture - Preliminary No growth in 4 days 06/05/18 17:40 Blood - Peripheral Anaerobic Blood Culture - Preliminary No growth in 4 days 06/05/18 17:46 Blood - Peripheral Aerobic Blood Culture - Preliminary No growth in 4 days 06/05/18 17:46 Blood - Peripheral Anaerobic Blood Culture - Preliminary No growth in 4 days 06/04/18 09:50 Blood - Peripheral Aerobic Blood Culture - Final No growth in 5 days 06/04/18 09:50 Blood - Peripheral Anaerobic Blood Culture - Final No growth in 5 days Lab - Hematology Results 06/08/18 06/09/18 03:53 05:03 WBC 8.8 7.7 RBC 2.69 L 2.70 L Hgb 8.6 L 8.6 L Hct 25.9 L 25.8 L MCV 96.3 95.8 MCH 32.0 31.8 MCHC 33.2 33.2 RDW 18.2 H 18.6 H Plt Count 699 H 847 H MPV 7.8 7.9 Prelim Diff (Auto) Slide review pending Neut % (Auto) 71.2 H 69.4 Lymph % (Auto) 13.4 17.1 [place] % (Auto) 13.8 H 11.6 H Eos % (Auto) 1.0 0.9 Baso % (Auto) 0.6 1.0 Neut # (Auto) 6.3 5.3 Lymph # (Auto) 1.2 1.3 [place] # (Auto) 1.2 H 0.9 Eos # (Auto) 0.1 0.1 Baso # (Auto) 0.0 0.1 WBC Differential . Manual diff final Seg Neuts % (Manual) 73 H Band Neuts % (Manual) 3 Lymphocytes % (Manual) 10 Monocytes % (Manual) 12 H Eosinophils % (Manual) 1 Myelocytes % (Man) 1 H Abs Neuts (Manual) 5.9 Differential Comment Auto diff final . Toxic Vacuolation Present H Platelet Estimate High H Platelet Morphology Clumped H Spherocytes Occ H Lab - Chemistry Results 06/07/18 06/08/18 06/08/18 20:42 00:08 01:45 Sodium 150 H Potassium 3.4 L D Chloride 114 H Carbon Dioxide 29.8 Anion Gap 6 BUN 25 H Creatinine 0.56 L Estimated GFR Greater than 89 POC Glucose 108 106 Random Glucose 95 Calcium 8.1 L Total Bilirubin 1.2 H AST 128 H ALT 50 Alkaline Phosphatase 542 H Total Protein 5.7 L Albumin 1.3 L 06/08/18 06/08/18 06/08/18 05:18 08:16 12:33 Sodium Potassium Chloride Carbon Dioxide Anion Gap BUN Creatinine Estimated GFR POC Glucose 127 H 103 119 H Random Glucose Calcium Total Bilirubin AST ALT Alkaline Phosphatase Total Protein Albumin 06/08/18 06/08/18 06/08/18 18:35 19:52 19:54 Sodium Potassium 4.2 D Chloride Carbon Dioxide Anion Gap BUN Creatinine Estimated GFR POC Glucose 108 100 Random Glucose Calcium Total Bilirubin AST ALT Alkaline Phosphatase Total Protein Albumin 06/09/18 06/09/18 06/09/18 00:24 05:02 05:03 Sodium 152 H Potassium 3.9 Chloride 117 H Carbon Dioxide 27.1 Anion Gap 8 BUN 21 H Creatinine 0.53 L Estimated GFR Greater than 89 POC Glucose 84 106 Random Glucose 88 Calcium 8.5 Total Bilirubin 0.8 AST 73 H ALT 37 Alkaline Phosphatase 690 H Total Protein 5.7 L Albumin 1.4 L 06/09/18 08:29 Sodium Potassium Chloride Carbon Dioxide Anion Gap BUN Creatinine Estimated GFR POC Glucose 163 H Random Glucose Calcium Total Bilirubin AST ALT Alkaline Phosphatase Total Protein Albumin Imaging: ITS Impressions Head CT 05/25/18 15:22 CONCLUSION: Chronic small vessel ischemic and atrophic changes. Head MRI 05/27/18 00:00 CONCLUSION: 1. Atrophy, white matter disease and remote left temporal infarct with encephalomalacia. Chest X-Ray 06/07/18 07:12 CONCLUSION: Bilateral perihilar densities and left basilar airspace disease, not significantly changed. Abdomen X-Ray 06/08/18 00:00 CONCLUSION: Nasogastric tube tip in the distal stomach. Physical Exam: GENERAL: Awakens to voice. Appears confused. HEENT: Head is atraumatic. Bitemporal wasting. Extraocular movements appear grossly intact. No icterus. Oropharynx intubated. NECK: Supple without adenopathy. LUNGS: Coarse rhonchi at both bases. HEART: Regular S1 and S2. No murmurs heard. ABDOMEN: Bowel sounds present. Soft, no tenderness appreciated. EXTREMITIES: No clubbing or cyanosis. Swelling at the right upper extremity. SKIN: No diffuse rash. NEUROLOGIC: Unable to fully assess.: Following some commands. PSYCHIATRIC: Unable to assess. Assessment and Plan - Plan IMPRESSION: 1. Pneumonia, aspiration. The patient is status post seizure. 2. Leukocytosis. White blood cell count down to normal. 3. Acute respiratory failure. Extubated. 4. Urinary tract infection with Klebsiella. 5. Seizure disorder. RECOMMENDATIONS: 1. Continue aztreonam. 2. Stop vancomycin. 3. Monitor temperature and clinical status. 4. Follow-up chest x-ray tomorrow.
--- NOTE | 2018-06-09 15:21 | P.PNNEU ---
Subjective Active Medications: Active Medications Acetaminophen (Tylenol Liq) 650 mg PO Q6H PRN PRN Reason: SEE DOSE INSTRUCTIONS Last Admin: 06/05/18 04:47 Dose: 650 mg Acetylcysteine (Mucomyst 10% Neb) 2 ml NEB Q4HR NEB [facility] Last Admin: 06/09/18 14:14 Dose: 2 ml Al Hydroxide/Mg Hydroxide (Milk Of Magnesia Liq) 30 ml PO Q12H PRN PRN Reason: Mild Constipation Albuterol (Duoneb Neb (Prn)) 1 ampul NEB Q2HR NEB PRN PRN Reason: WHEEZING Albuterol (Duoneb Neb (Leigha)) 1 ampul NEB Q4HR NEB [facility] Last Admin: 06/09/18 14:14 Dose: 1 ampul Bisacodyl (Dulcolax Supp) 10 mg RECTAL DAILY PRN PRN Reason: SEVERE CONSITIPATION Chlorhexidine Gluconate (Peridex 0.12% Oral Kit) 15 ml OROPHARYNG BID@0800, 2000 [facility] Last Admin: 06/09/18 10:17 Dose: 15 ml Dextrose (D50w Vial) 50 ml IV.PUSH UNSCH PRN PRN Reason: PER HYPOGLYCEMIA PROTOCOL Enoxaparin Sodium (Lovenox Inj) 40 mg SQ Q24H [facility] Last Admin: 06/03/18 20:29 Dose: 40 mg Famotidine (Pepcid Pf Inj) 20 mg IV.PUSH Q8H [facility] Last Admin: 06/09/18 10:17 Dose: 20 mg Flumazenil (Romazecon Inj) 0.2 mg IV.PUSH Q1M PRN PRN Reason: OVERSEDATION Glucagon (Glucagon Inj) 1 mg OTHER PRN PRN PRN Reason: for Hypoglycemia Protocol Magnesium Sulfate Inj 4 gm/ (Sodium Chloride) 100 mls @ 50 mls/hr IV.SIG UNSCH PRN PRN Reason: For Magnesium 0.9 - 1.1 mg/dL Magnesium Sulfate Inj 2 gm/ (Sodium Chloride) 100 mls @ 50 mls/hr IV.SIG UNSCH PRN PRN Reason: For Magnesium 1.2 - 1.6 mg/dL Last Infusion: 06/04/18 07:00 Dose: Infused Potassium Chloride (Kcl 40 Meq Premix Inj) 40 meq in 100 mls @ 25 mls/hr IV.SIG Q2H PRN PRN Reason: For Potassium 2.8 - 3.2 mEq/L Potassium Chloride (Kcl 40 Meq Premix Inj) 40 meq in 100 mls @ 25 mls/hr IV.SIG UNSCH PRN PRN Reason: For Potassium 3.3 - 3.5 mEq/L Potassium Chloride (Kcl 20 Meq Premix Inj) 20 meq in 100 mls @ 50 mls/hr IV.SIG Q2H PRN PRN Reason: For Potassium 2.8 - 3.2 mEq/L Potassium Phosphate 30 mmol/ (Sodium Chloride) 260 mls @ 42 mls/hr IV.SIG UNSCH PRN PRN Reason: SEE LABEL COMMENTS Sodium Phosphate 30 mmol/ (Sodium Chloride) 260 mls @ 42 mls/hr IV.SIG UNSCH PRN PRN Reason: For Phosphorus < 2.5 mg/dL Last Infusion: 05/27/18 14:58 Dose: Infused Potassium Chloride (Kcl 20 Meq Premix Inj) 20 meq in 100 mls @ 50 mls/hr IV.SIG Q2H PRN PRN Reason: For Potassium 3.3 - 3.5 mEq/L Last Admin: 06/08/18 10:40 Dose: 35 mls/hr Aztreonam 1,000 mg/ Sodium (Chloride) 100 mls @ 200 mls/hr IV.SIG Q8H [facility] Last Admin: 06/09/18 12:38 Dose: 200 mls/hr Levetiracetam 750 mg/ Sodium (Chloride) 107.5 mls @ 430 mls/hr IV.SIG Q12H [facility] Last Admin: 06/09/18 12:38 Dose: 430 mls/hr Insulin Human Regular (Novolin R Correctional Sugar Inj) 0 units SQ Q6HR [facility]; Protocol Last Admin: 06/09/18 14:57 Dose: Not Given Lactulose (Lactulose Liq) 30 ml PO DAILY PRN PRN Reason: SEVERE CONSITIPATION Magnesium Oxide (Mag-Ox) 800 mg PO UNSCH PRN PRN Reason: For Magnesium 1.2 - 1.6 mg/dL Miscellaneous (Pill Splitter) 1 each OTHER UNSCH PRN PRN Reason: PILL SPLITTER Miscellaneous Information ([facility] Ordered Lab Info) 0 each OTHER ONCE ONE Stop: 06/10/18 13:46 Ondansetron HCl (Zofran Inj) 4 mg IV.PUSH Q6H PRN PRN Reason: NAUSEA OR VOMITING Potassium Bicarb/Potassium Chloride (K-Lyte Cl Eff) 50 meq PO UNSCH PRN PRN Reason: For Potassium 3.3 - 3.5 mEq/L Last Admin: 05/26/18 11:33 Dose: 50 meq Potassium Phosphate (K-Phos Original) 2,000 mg PO Q4H PRN PRN Reason: Phosphorus Less Than 2.5 mg/dL Last Admin: 05/31/18 17:47 Dose: 2,000 mg Potassium Phosphate (K-Phos Original) 2,000 mg PO UNSCH PRN PRN Reason: SEE LABEL COMMENTS Senna/Docusate Sodium (Anupama-Colace) 1 tab PO BID [facility] Last Admin: 06/09/18 10:17 Dose: 1 tab Sennosides (Senokot) 17.2 mg PO Q12H PRN PRN Reason: Moderate Constipation Sodium Chloride (Ns Flush) 2 ml IV.FLUSH BID [facility] Last Admin: 06/09/18 10:17 Dose: 2 ml Sodium Chloride (Ns Flush) 2 ml IV.FLUSH PRN PRN PRN Reason: FLUSH AFTER USING IV ACCESS Last Admin: 06/01/18 00:10 Dose: 2 ml Sterile Water (Free Water) 200 ml G-TUBE Q6HR [facility] Last Admin: 06/09/18 13:35 Dose: 200 ml Thiamine HCl (Vitamin B1) 100 mg PO DAILY [facility] Last Admin: 06/09/18 10:17 Dose: 100 mg Allergies/Adverse Reactions: Allergies Allergy/AdvReac Type Severity Reaction Status Date / Time Unable to Assess Allergy Unknown Unconscious Verified 05/25/18 17:12 Physical Exam Vital signs: Vital Signs 06/08/18 16:00 06/08/18 16:01 06/08/18 17:00 Temperature Pulse Rate 104 H 104 H 108 H Respiratory Rate 24 18 24 Blood Pressure 105/63 109/69 Pulse Oximetry 99 97 06/08/18 18:00 06/08/18 19:00 06/08/18 19:50 Temperature Pulse Rate 110 H 109 H 105 H Respiratory Rate 27 H 23 18 Blood Pressure 109/64 109/64 Pulse Oximetry 98 97 98 06/08/18 20:00 06/08/18 21:00 06/08/18 22:00 Temperature 99.5 F Pulse Rate 103 H 109 H 108 H Respiratory Rate 22 20 18 Blood Pressure 103/63 115/59 L 112/68 Pulse Oximetry 98 99 99 06/08/18 23:00 06/08/18 23:43 06/09/18 00:00 Temperature 99.3 F Pulse Rate 106 H 106 H 107 H Respiratory Rate 15 20 16 Blood Pressure 119/68 108/55 L Pulse Oximetry 98 95 06/09/18 01:00 06/09/18 02:00 06/09/18 03:00 Temperature Pulse Rate 107 H 103 H 102 H Respiratory Rate 19 12 23 Blood Pressure 112/58 L 113/59 L 105/60 Pulse Oximetry 98 98 98 06/09/18 03:44 06/09/18 04:00 06/09/18 04:03 Temperature 99.5 F Pulse Rate 105 H 105 H 105 H Respiratory Rate 16 20 17 Blood Pressure 89/60 L 93/55 L Pulse Oximetry 96 97 06/09/18 05:00 06/09/18 06:00 06/09/18 07:00 Temperature Pulse Rate 104 H 106 H 103 H Respiratory Rate 18 25 H Blood Pressure 101/56 L 109/66 117/66 Pulse Oximetry 100 99 97 06/09/18 07:32 06/09/18 08:00 06/09/18 09:00 Temperature Pulse Rate 106 H 105 H Respiratory Rate 30 H 29 H Blood Pressure 133/62 120/81 Pulse Oximetry 99 97 99 06/09/18 10:00 06/09/18 11:00 06/09/18 11:23 Temperature Pulse Rate 104 H 104 H 105 H Respiratory Rate 18 16 18 Blood Pressure 109/68 111/57 L Pulse Oximetry 99 97 06/09/18 12:00 06/09/18 13:00 06/09/18 14:00 Temperature Pulse Rate 111 H 107 H 107 H Respiratory Rate 18 25 H 27 H Blood Pressure 107/63 107/59 L 111/60 Pulse Oximetry 94 L 96 96 06/09/18 14:15 Temperature Pulse Rate 107 H Respiratory Rate 20 Blood Pressure Pulse Oximetry Intake & Output 06/08/18 06/09/18 06/09/18 18:59 06:59 18:59 Intake Total 300 / 300 859.5 / 859.5 Output Total 525 / 525 500 / 500 Balance -225 / -225 359.5 / 359.5 Weight 58 kg Intake: IV 300 / 300 307.5 / 307.5 Azactam Inj 1,000 MG In NS Inj 100 / 100 200 / 200 100 ML @ 200 mls/hr IV.SIG Q8H [facility] Rx#:[id number] KCl 20 mEq Premix Inj 20 meq In 100 / 100 100 ml @ 50 mls/hr IV.SIG Q2H PRN Rx#:[id number] Keppra Inj 750 MG In NS Inj 100 100 / 100 107.5 / 107.5 ML @ 430 mls/hr IV.SIG Q12H [facility] Rx#:[id number] Tube Feeding 352 / 352 Tube Irrigant 0 / 0 Water Bolus Amount 200 / 200 Output: Urine Amount (Catheter) 525 / 525 450 / 450 Condom 525 / 525 450 / 450 Gastric Drainage 50 / 50 Left Nare 50 / 50 Other: Date of Last Bowel Movement 06/06/18 06/06/18 06/06/18 Narrative: awake says few words to son moves all r>l ue resting tremors moves all ext more alert - Urinary Catheter Management Indwelling Urethral Catheter Cath placed during this visit: yes, but has since been removed by the nurse Reason for continuing: Not indwelling catheter Insertion date: 05/25/18 Insertion time: 15:00 Removal date: 05/26/18 Removal time: 12:00 Straight Cath placed during this visit: yes Reason for continuing: Not indwelling catheter Insertion date: 06/05/18 Insertion time: 00:20 Condom Cath placed during this visit: no Reason for continuing: Not indwelling catheter Objective Laboratory Results - last 24 hr 06/08/18 06/08/18 06/08/18 18:35 19:52 19:54 WBC RBC Hgb Hct MCV MCH MCHC RDW Plt Count MPV Prelim Diff (Auto) Neut % (Auto) Lymph % (Auto) [place] % (Auto) Eos % (Auto) Baso % (Auto) Neut # (Auto) Lymph # (Auto) [place] # (Auto) Eos # (Auto) Baso # (Auto) WBC Differential Seg Neuts % (Manual) Band Neuts % (Manual) Lymphocytes % (Manual) Monocytes % (Manual) Eosinophils % (Manual) Myelocytes % (Man) Abs Neuts (Manual) Differential Comment Toxic Vacuolation Platelet Estimate Platelet Morphology Spherocytes Sodium Potassium 4.2 D Chloride Carbon Dioxide Anion Gap BUN Creatinine Estimated GFR POC Glucose 108 100 Random Glucose Calcium Total Bilirubin AST ALT Alkaline Phosphatase Total Protein Albumin 06/09/18 06/09/18 06/09/18 00:24 05:02 05:03 WBC 7.7 RBC 2.70 L Hgb 8.6 L Hct 25.8 L MCV 95.8 MCH 31.8 MCHC 33.2 RDW 18.6 H Plt Count 847 H MPV 7.9 Prelim Diff (Auto) Slide review pending Neut % (Auto) 69.4 Lymph % (Auto) 17.1 [place] % (Auto) 11.6 H Eos % (Auto) 0.9 Baso % (Auto) 1.0 Neut # (Auto) 5.3 Lymph # (Auto) 1.3 [place] # (Auto) 0.9 Eos # (Auto) 0.1 Baso # (Auto) 0.1 WBC Differential Manual diff final Seg Neuts % (Manual) 73 H Band Neuts % (Manual) 3 Lymphocytes % (Manual) 10 Monocytes % (Manual) 12 H Eosinophils % (Manual) 1 Myelocytes % (Man) 1 H Abs Neuts (Manual) 5.9 Differential Comment . Toxic Vacuolation Present H Platelet Estimate High H Platelet Morphology Clumped H Spherocytes Occ H Sodium Potassium Chloride Carbon Dioxide Anion Gap BUN Creatinine Estimated GFR POC Glucose 84 106 Random Glucose Calcium Total Bilirubin AST ALT Alkaline Phosphatase Total Protein Albumin 06/09/18 06/09/18 05:03 08:29 WBC RBC Hgb Hct MCV MCH MCHC RDW Plt Count MPV Prelim Diff (Auto) Neut % (Auto) Lymph % (Auto) [place] % (Auto) Eos % (Auto) Baso % (Auto) Neut # (Auto) Lymph # (Auto) [place] # (Auto) Eos # (Auto) Baso # (Auto) WBC Differential Seg Neuts % (Manual) Band Neuts % (Manual) Lymphocytes % (Manual) Monocytes % (Manual) Eosinophils % (Manual) Myelocytes % (Man) Abs Neuts (Manual) Differential Comment Toxic Vacuolation Platelet Estimate Platelet Morphology Spherocytes Sodium 152 H Potassium 3.9 Chloride 117 H Carbon Dioxide 27.1 Anion Gap 8 BUN 21 H Creatinine 0.53 L Estimated GFR Greater than 89 POC Glucose 163 H Random Glucose 88 Calcium 8.5 Total Bilirubin 0.8 AST 73 H ALT 37 Alkaline Phosphatase 690 H Total Protein 5.7 L Albumin 1.4 L Microbiology 06/05/18 17:40 Aerobic Blood Culture - Preliminary Blood - Peripheral No growth in 4 days Anaerobic Blood Culture - Preliminary No growth in 4 days 06/05/18 17:46 Aerobic Blood Culture - Preliminary Blood - Peripheral No growth in 4 days Anaerobic Blood Culture - Preliminary No growth in 4 days 06/04/18 09:50 Aerobic Blood Culture - Final Blood - Peripheral No growth in 5 days Anaerobic Blood Culture - Final No growth in 5 days Review/Management - Review/Management Plan: imp mri and eeg neg on keppra hold all sedatives could be prolonged postictal will fu saturday see if awakens over next few days no apparent reason why he would not - 06/02/18 much better should do well keppra off vent when able 06/05/18 no sz he should bounce back neurowise to prior level of functioning keppra stable neuro 06/07/18 no sz on keppra 1000 bid eeg neg check abg for some inc ms change may need peg? i tai sone no etoh and needs to take his meds lives w daughter she should see that he does 06/08/18 have PT oob recheck eeg lower keppra to 750 bid should be making progress ? chest PT getting dehydrated na 150 06/09/18 a little better today try sinemet see if helps tremor and motor system etoher i dw son will fu eeg ok
--- NOTE | 2018-06-09 16:40 | P.PNWCN ---
Wound Care Nurse Consult Description: FOLLOW UP for previous Consult for Wound Management of sacral wound per Kristy Snow/Dr Ramachandran Communicated with: PLACIDO Navarro pediatric acute care unit nurse on [facility] Recommendation: Keep patient off of his sacrum. Position patient from left to right sides only. Cleanse wound BID and PRN for soiling. Apply POVIDONE-IODINE BID and leave dry black eschar OVEN TENDER on sacrum. Additional information: Spoke with Melanie CUMMINS, and Dr Schilling, as well as RN to receive patient on [facility] today regarding exuderm that was applied recently at the patients family request. The goal for the DTI turned unstageable is to leave the intact black eschar open to air, dry, and free from pressure. Patient does not appear to be a surgical candidate for debridement. If wound is covered with a hydrocolloid/ exuderm or foam the wound will open and risk for infection is high. Please use only ultrasorb underpad with specialty bed ordered. Continue to reposition patient from left to right sides only. Wound/Pressure Injury - Wound Sacrum Wound Staging: Unstageable Wound Assessment: Ongoing Wound Type: Pressure Injury Is This a Chronic Wound: No Requested from Provider a Wound Care Consult: Yes Length: 10 Width: 8 Depth: 0 (black eschar) Wound Bed Appearance: Necrotic Wound Bed Appearance: Leathery black intact eschar Drainage Amount: None
--- NOTE | 2018-06-09 17:17 | P.PNPAL ---
Reason for Visit Reason for visit: a. To assist with evaluation and management of symptoms including: confusion, dyspnea b. To assist medical decision maker(s) with: better understanding of current medical conditions; weighing benefits/burdens of medical treatment options; making medical treatment decisions. Subjective Subjective/Interval History: Pt extubated 06/06. Transferring off unit shortly. He is awake. Speech unintelligible. Appears comfortable. woundcare following for sacral wound. CXR 06/07 showign bilat perihilar densities, left basilar airspace disease. Was tachypneic this mornign but is not on my exam. He has been failing swallow evals, NPO currently. may need PEG tube soon. Started on sinemet by neuro. Family/Friend Interactions: Spoke with pts son Carlos Alberto on phone. Provided medical update. Discussed likely scenarios with ongoin aggressive care vs transition to comfort with hospice. "He 's alive so no point starving him now." Goals are aggressive short of no code / DNR. Primary HCS Carlos Alberto would like to proceed with feeding tube placement if pt continues to fail swallow eval. Advance Directives Health Care Surrogate Name and Number: Carlos Alberto Barnett [phone]; Amber Barnett [phone], Objective Vital Signs: Vital Signs 06/08/18 17:00 06/08/18 18:00 06/08/18 19:00 Temperature Pulse Rate 108 H 110 H 109 H Respiratory Rate 24 27 H 23 Blood Pressure 109/69 109/64 109/64 Pulse Oximetry 97 98 97 06/08/18 19:50 06/08/18 20:00 06/08/18 21:00 Temperature 99.5 F Pulse Rate 105 H 103 H 109 H Respiratory Rate 18 22 20 Blood Pressure 103/63 115/59 L Pulse Oximetry 98 98 99 06/08/18 22:00 06/08/18 23:00 06/08/18 23:43 Temperature Pulse Rate 108 H 106 H 106 H Respiratory Rate 18 15 20 Blood Pressure 112/68 119/68 Pulse Oximetry 99 98 06/09/18 00:00 06/09/18 01:00 06/09/18 02:00 Temperature 99.3 F Pulse Rate 107 H 107 H 103 H Respiratory Rate 16 19 12 Blood Pressure 108/55 L 112/58 L 113/59 L Pulse Oximetry 95 98 98 06/09/18 03:00 06/09/18 03:44 06/09/18 04:00 Temperature 99.5 F Pulse Rate 102 H 105 H 105 H Respiratory Rate 23 16 20 Blood Pressure 105/60 89/60 L Pulse Oximetry 98 96 06/09/18 04:03 06/09/18 05:00 06/09/18 06:00 Temperature Pulse Rate 105 H 104 H 106 H Respiratory Rate 17 18 Blood Pressure 93/55 L 101/56 L 109/66 Pulse Oximetry 97 100 99 06/09/18 07:00 06/09/18 07:32 06/09/18 08:00 Temperature Pulse Rate 103 H 106 H Respiratory Rate 25 H 30 H Blood Pressure 117/66 133/62 Pulse Oximetry 97 99 97 06/09/18 09:00 06/09/18 10:00 06/09/18 11:00 Temperature Pulse Rate 105 H 104 H 104 H Respiratory Rate 29 H 18 16 Blood Pressure 120/81 109/68 111/57 L Pulse Oximetry 99 99 97 06/09/18 11:23 06/09/18 12:00 06/09/18 13:00 Temperature Pulse Rate 105 H 111 H 107 H Respiratory Rate 18 18 25 H Blood Pressure 107/63 107/59 L Pulse Oximetry 94 L 96 06/09/18 14:00 06/09/18 14:15 Temperature Pulse Rate 107 H 107 H Respiratory Rate 27 H 20 Blood Pressure 111/60 Pulse Oximetry 96 Intake & Output 06/08/18 06/09/18 06/09/18 18:59 06:59 18:59 Intake Total 300 / 300 859.5 / 859.5 Output Total 525 / 525 500 / 500 Balance -225 / -225 359.5 / 359.5 Weight 58 kg Intake: IV 300 / 300 307.5 / 307.5 Azactam Inj 1,000 MG In NS Inj 100 / 100 200 / 200 100 ML @ 200 mls/hr IV.SIG Q8H ALPHONSE Rx#:[id number] KCl 20 mEq Premix Inj 20 meq In 100 / 100 100 ml @ 50 mls/hr IV.SIG Q2H PRN Rx#:[id number] Keppra Inj 750 MG In NS Inj 100 100 / 100 107.5 / 107.5 ML @ 430 mls/hr IV.SIG Q12H ALPHONSE Rx#:[id number] Tube Feeding 352 / 352 Tube Irrigant 0 / 0 Water Bolus Amount 200 / 200 Output: Urine Amount (Catheter) 525 / 525 450 / 450 Condom 525 / 525 450 / 450 Gastric Drainage 50 / 50 Left Nare 50 / 50 Other: Date of Last Bowel Movement 06/06/18 06/06/18 06/06/18 Physical Exam: CONSTITUTIONAL/GENERAL: cachectic SKIN: No jaundice, rashes, or lesions. No wounds seen anteriorly. Skin temperature appropriate. Not diaphoretic. HEAD: Atraumatic. Normocephalic. EYES: Right pupil reactive, left pupil oval shaped and fixed. eyes glassy. Fundi not examined. ENT: Nose without bleeding or purulent drainage. CARDIOVASCULAR: tachycardic, irr HR, no gallops, or rubs. RESPIRATORY/CHEST: Symmetric, unlabored respirations. Clear to auscultation. Breath sounds equal bilaterally. GASTROINTESTINAL: Abdomen soft, non-tender, nondistended. No hepato-splenomegaly , or palpable masses. No guarding. Bowel sounds present. GENITOURINARY: Without palpable bladder distension. Martin catheter in place. MUSCULOSKELETAL: + 2 pittingBLE edema NEUROLOGICAL: opens eyes, tracks. minimally verbal. cooperative. PSYCHIATRIC: unable to assess 2/2 mental status Diagnostic Tests Laboratory: Laboratory Results - last 72 hr 06/06/18 06/07/18 06/07/18 18:01 00:38 04:06 WBC RBC Hgb Hct MCV MCH MCHC RDW Plt Count MPV Prelim Diff (Auto) Neut % (Auto) Lymph % (Auto) [place] % (Auto) Eos % (Auto) Baso % (Auto) Neut # (Auto) Lymph # (Auto) [place] # (Auto) Eos # (Auto) Baso # (Auto) WBC Differential Seg Neuts % (Manual) Band Neuts % (Manual) Lymphocytes % (Manual) Monocytes % (Manual) Eosinophils % (Manual) Myelocytes % (Man) Abs Neuts (Manual) Differential Comment Toxic Vacuolation Platelet Estimate Platelet Morphology Spherocytes Puncture Site Patient Temperature O2 Saturation ABG pH ABG pCO2 ABG pO2 ABG HCO3 ABG O2 Content ABG Base Excess ABG Methemoglobin Jim Test Hemoglobin Carboxyhemoglobin O2 Delivery Device Liter Flow Inspired O2 Critical Value Sodium 148 H Potassium 4.3 Chloride 114 H Carbon Dioxide 25.0 Anion Gap 9 BUN 30 H Creatinine 0.66 Estimated GFR Greater than 89 POC Glucose 137 H 127 H Random Glucose 117 H Calcium 8.1 L Total Bilirubin 1.9 H AST 269 H ALT 59 Alkaline Phosphatase 816 H Total Protein 5.9 L Albumin 1.3 L Vancomycin Trough 06/07/18 06/07/18 06/07/18 07:01 08:00 08:58 WBC 10.8 RBC 2.82 L Hgb 9.1 L Hct 27.1 L MCV 96.3 MCH 32.4 MCHC 33.7 RDW 18.7 H Plt Count 659 H MPV 7.9 Prelim Diff (Auto) Neut % (Auto) 77.9 H Lymph % (Auto) 9.7 [place] % (Auto) 11.5 H Eos % (Auto) 0.4 Baso % (Auto) 0.5 Neut # (Auto) 8.4 H Lymph # (Auto) 1.0 [place] # (Auto) 1.2 H Eos # (Auto) 0.0 Baso # (Auto) 0.1 WBC Differential . Seg Neuts % (Manual) Band Neuts % (Manual) Lymphocytes % (Manual) Monocytes % (Manual) Eosinophils % (Manual) Myelocytes % (Man) Abs Neuts (Manual) Differential Comment Auto diff final Toxic Vacuolation Platelet Estimate Platelet Morphology Spherocytes Puncture Site Patient Temperature O2 Saturation ABG pH ABG pCO2 ABG pO2 ABG HCO3 ABG O2 Content ABG Base Excess ABG Methemoglobin Jim Test Hemoglobin Carboxyhemoglobin O2 Delivery Device Liter Flow Inspired O2 Critical Value Sodium Potassium Chloride Carbon Dioxide Anion Gap BUN Creatinine Estimated GFR POC Glucose 133 H 148 H Random Glucose Calcium Total Bilirubin AST ALT Alkaline Phosphatase Total Protein Albumin Vancomycin Trough 06/07/18 06/07/18 06/08/18 11:04 20:42 00:08 WBC RBC Hgb Hct MCV MCH MCHC RDW Plt Count MPV Prelim Diff (Auto) Neut % (Auto) Lymph % (Auto) [place] % (Auto) Eos % (Auto) Baso % (Auto) Neut # (Auto) Lymph # (Auto) [place] # (Auto) Eos # (Auto) Baso # (Auto) WBC Differential Seg Neuts % (Manual) Band Neuts % (Manual) Lymphocytes % (Manual) Monocytes % (Manual) Eosinophils % (Manual) Myelocytes % (Man) Abs Neuts (Manual) Differential Comment Toxic Vacuolation Platelet Estimate Platelet Morphology Spherocytes Puncture Site Right radial Patient Temperature 98.6 O2 Saturation 96 ABG pH 7.48 H ABG pCO2 38 ABG pO2 99 ABG HCO3 28 H ABG O2 Content 13.5 ABG Base Excess 4.4 H ABG Methemoglobin 1.2 Jim Test Present Hemoglobin 9.9 L Carboxyhemoglobin 1.2 O2 Delivery Device Nasal cannula Liter Flow 2.00 Inspired O2 21 Critical Value No Sodium Potassium Chloride Carbon Dioxide Anion Gap BUN Creatinine Estimated GFR POC Glucose 108 106 Random Glucose Calcium Total Bilirubin AST ALT Alkaline Phosphatase Total Protein Albumin Vancomycin Trough 06/08/18 06/08/18 06/08/18 01:45 03:53 05:18 WBC 8.8 RBC 2.69 L Hgb 8.6 L Hct 25.9 L MCV 96.3 MCH 32.0 MCHC 33.2 RDW 18.2 H Plt Count 699 H MPV 7.8 Prelim Diff (Auto) Neut % (Auto) 71.2 H Lymph % (Auto) 13.4 [place] % (Auto) 13.8 H Eos % (Auto) 1.0 Baso % (Auto) 0.6 Neut # (Auto) 6.3 Lymph # (Auto) 1.2 [place] # (Auto) 1.2 H Eos # (Auto) 0.1 Baso # (Auto) 0.0 WBC Differential . Seg Neuts % (Manual) Band Neuts % (Manual) Lymphocytes % (Manual) Monocytes % (Manual) Eosinophils % (Manual) Myelocytes % (Man) Abs Neuts (Manual) Differential Comment Auto diff final Toxic Vacuolation Platelet Estimate Platelet Morphology Spherocytes Puncture Site Patient Temperature O2 Saturation ABG pH ABG pCO2 ABG pO2 ABG HCO3 ABG O2 Content ABG Base Excess ABG Methemoglobin Jim Test Hemoglobin Carboxyhemoglobin O2 Delivery Device Liter Flow Inspired O2 Critical Value Sodium 150 H Potassium 3.4 L D Chloride 114 H Carbon Dioxide 29.8 Anion Gap 6 BUN 25 H Creatinine 0.56 L Estimated GFR Greater than 89 POC Glucose 127 H Random Glucose 95 Calcium 8.1 L Total Bilirubin 1.2 H AST 128 H ALT 50 Alkaline Phosphatase 542 H Total Protein 5.7 L Albumin 1.3 L Vancomycin Trough 22.1 H 06/08/18 06/08/18 06/08/18 08:16 12:33 18:35 WBC RBC Hgb Hct MCV MCH MCHC RDW Plt Count MPV Prelim Diff (Auto) Neut % (Auto) Lymph % (Auto) [place] % (Auto) Eos % (Auto) Baso % (Auto) Neut # (Auto) Lymph # (Auto) [place] # (Auto) Eos # (Auto) Baso # (Auto) WBC Differential Seg Neuts % (Manual) Band Neuts % (Manual) Lymphocytes % (Manual) Monocytes % (Manual) Eosinophils % (Manual) Myelocytes % (Man) Abs Neuts (Manual) Differential Comment Toxic Vacuolation Platelet Estimate Platelet Morphology Spherocytes Puncture Site Patient Temperature O2 Saturation ABG pH ABG pCO2 ABG pO2 ABG HCO3 ABG O2 Content ABG Base Excess ABG Methemoglobin Jim Test Hemoglobin Carboxyhemoglobin O2 Delivery Device Liter Flow Inspired O2 Critical Value Sodium Potassium Chloride Carbon Dioxide Anion Gap BUN Creatinine Estimated GFR POC Glucose 103 119 H 108 Random Glucose Calcium Total Bilirubin AST ALT Alkaline Phosphatase Total Protein Albumin Vancomycin Trough 06/08/18 06/08/18 06/09/18 19:52 19:54 00:24 WBC RBC Hgb Hct MCV MCH MCHC RDW Plt Count MPV Prelim Diff (Auto) Neut % (Auto) Lymph % (Auto) [place] % (Auto) Eos % (Auto) Baso % (Auto) Neut # (Auto) Lymph # (Auto) [place] # (Auto) Eos # (Auto) Baso # (Auto) WBC Differential Seg Neuts % (Manual) Band Neuts % (Manual) Lymphocytes % (Manual) Monocytes % (Manual) Eosinophils % (Manual) Myelocytes % (Man) Abs Neuts (Manual) Differential Comment Toxic Vacuolation Platelet Estimate Platelet Morphology Spherocytes Puncture Site Patient Temperature O2 Saturation ABG pH ABG pCO2 ABG pO2 ABG HCO3 ABG O2 Content ABG Base Excess ABG Methemoglobin Jim Test Hemoglobin Carboxyhemoglobin O2 Delivery Device Liter Flow Inspired O2 Critical Value Sodium Potassium 4.2 D Chloride Carbon Dioxide Anion Gap BUN Creatinine Estimated GFR POC Glucose 100 84 Random Glucose Calcium Total Bilirubin AST ALT Alkaline Phosphatase Total Protein Albumin Vancomycin Trough 06/09/18 06/09/18 06/09/18 05:02 05:03 05:03 WBC 7.7 RBC 2.70 L Hgb 8.6 L Hct 25.8 L MCV 95.8 MCH 31.8 MCHC 33.2 RDW 18.6 H Plt Count 847 H MPV 7.9 Prelim Diff (Auto) Slide review pending Neut % (Auto) 69.4 Lymph % (Auto) 17.1 [place] % (Auto) 11.6 H Eos % (Auto) 0.9 Baso % (Auto) 1.0 Neut # (Auto) 5.3 Lymph # (Auto) 1.3 [place] # (Auto) 0.9 Eos # (Auto) 0.1 Baso # (Auto) 0.1 WBC Differential Manual diff final Seg Neuts % (Manual) 73 H Band Neuts % (Manual) 3 Lymphocytes % (Manual) 10 Monocytes % (Manual) 12 H Eosinophils % (Manual) 1 Myelocytes % (Man) 1 H Abs Neuts (Manual) 5.9 Differential Comment . Toxic Vacuolation Present H Platelet Estimate High H Platelet Morphology Clumped H Spherocytes Occ H Puncture Site Patient Temperature O2 Saturation ABG pH ABG pCO2 ABG pO2 ABG HCO3 ABG O2 Content ABG Base Excess ABG Methemoglobin Jim Test Hemoglobin Carboxyhemoglobin O2 Delivery Device Liter Flow Inspired O2 Critical Value Sodium 152 H Potassium 3.9 Chloride 117 H Carbon Dioxide 27.1 Anion Gap 8 BUN 21 H Creatinine 0.53 L Estimated GFR Greater than 89 POC Glucose 106 Random Glucose 88 Calcium 8.5 Total Bilirubin 0.8 AST 73 H ALT 37 Alkaline Phosphatase 690 H Total Protein 5.7 L Albumin 1.4 L Vancomycin Trough 06/09/18 06/09/18 08:29 16:27 WBC RBC Hgb Hct MCV MCH MCHC RDW Plt Count MPV Prelim Diff (Auto) Neut % (Auto) Lymph % (Auto) [place] % (Auto) Eos % (Auto) Baso % (Auto) Neut # (Auto) Lymph # (Auto) [place] # (Auto) Eos # (Auto) Baso # (Auto) WBC Differential Seg Neuts % (Manual) Band Neuts % (Manual) Lymphocytes % (Manual) Monocytes % (Manual) Eosinophils % (Manual) Myelocytes % (Man) Abs Neuts (Manual) Differential Comment Toxic Vacuolation Platelet Estimate Platelet Morphology Spherocytes Puncture Site Patient Temperature O2 Saturation ABG pH ABG pCO2 ABG pO2 ABG HCO3 ABG O2 Content ABG Base Excess ABG Methemoglobin Jim Test Hemoglobin Carboxyhemoglobin O2 Delivery Device Liter Flow Inspired O2 Critical Value Sodium Potassium Chloride Carbon Dioxide Anion Gap BUN Creatinine Estimated GFR POC Glucose 163 H 154 H Random Glucose Calcium Total Bilirubin AST ALT Alkaline Phosphatase Total Protein Albumin Vancomycin Trough Result Diagrams: 06/10/18 06:18 06/10/18 06:18 Microbiology: Microbiology 06/05/18 17:40 Aerobic Blood Culture - Preliminary Blood - Peripheral No growth in 4 days Anaerobic Blood Culture - Preliminary No growth in 4 days 06/05/18 17:46 Aerobic Blood Culture - Preliminary Blood - Peripheral No growth in 4 days Anaerobic Blood Culture - Preliminary No growth in 4 days 06/04/18 09:50 Aerobic Blood Culture - Final Blood - Peripheral No growth in 5 days Anaerobic Blood Culture - Final No growth in 5 days Imaging: ITS Impressions Head CT 05/25/18 15:22 CONCLUSION: Chronic small vessel ischemic and atrophic changes. Head MRI 05/27/18 00:00 CONCLUSION: 1. Atrophy, white matter disease and remote left temporal infarct with encephalomalacia. Chest X-Ray 06/07/18 07:12 CONCLUSION: Bilateral perihilar densities and left basilar airspace disease, not significantly changed. Abdomen X-Ray 06/08/18 00:00 CONCLUSION: Nasogastric tube tip in the distal stomach. 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 . Has 10 kids. Originally from [place], grew up in [place], has been in [place] for 40 y. Lives with one of his daughters. Some of his children are local. Spiritual: Yarsanism non-latter-day, daughter requests rolling machine tender visit Legal: Pt is not capacitated to make medical decisions. It is unclear if he will regain capacity. He has previously designated son Carlos Alberto Barnett as primary HCS and daughter Amber as secondary. Ethical issues impacting care: none identified Important Contacts: Carlos Alberto Barnett, son/primary HCS: [phone] Amber Barnett, daughter/alternate HCS: [phone] or [phone] Prognosis: 72 yo male with seizure disorder since head injury 5 y ago, noncompliance with seizure meds, 50 year hx drinking up to or more than a gallon of wine daily admitted 05/25 after having seizure like activity, intubated in the field. EEG showing encephalopathy. He appears cachectic and malnourished. It is unclear if his encephalopathy will improve completely. His poor nutrition status makes full physical recovery unlikely. He is quite likely to continue having complications such as seizures d/t noncompliance, episodes of withdrawal, falls. He will likely continue to decline. Code Status: No Code DNR Plan: - LEGAL DECISON MAKER - [facility] completed 02/13/17 Carlos Alberto BarnettAlyma secondary - CODE STATUS- alternate code; intubation only. - GOALS - aggressive short of no code /DNR. Primary HCS Carlos Alberto would like to proceed with feeding tube placement if pt continues to fail swallow eval. - SYMPTOMS - * dyspnea - intubated in field. extubated 06/06. sat 96% on 2L NC. Has PRN and scheduled duonebs. * confusion - multifactorial, long hx etoh abuse, seizure disorder, head injury. ?withdrawal vs seizures vs both? EEG 05/26 showing encephalopathy, no seizure activity. NH elevated 40, ?component hepatic encephalopathy? TSH 0.298L. off sedation, now extubated. Per neurology trial sinemet, neuro feels he will return to his baseline neurologically - d/w PLACIDO Navarro, with neurology - Palliative care will continue to follow during hospital course as condition evolves, to assist patient/decision-maker with understanding of medical conditions, weighing benefits/burdens of treatment options, for clarification of goals of treatment. Additionally will assist with any symptoms of palliative concern Attestation Attestation: To help prompt me to consider important information that might be impacting today's encounter and assessment, information from prior notes written by myself or my colleagues may have been "brought forward" into today's note. My signature on this note, however, is an attestation that I personally performed the exam, history, and/or decision-making noted today, and, unless otherwise indicated, the interactions with patient, family, and staff as well as the review of records all occurred today. I also attest that the listed assessment and stated plan reflect my best clinical judgment today based on the combination of historical information, prior notes, and today's exam/ interactions. When time spent is documented, it refers only to time spent today by the signer, or if indicated, combined time spent today by collaborating physician/nurse practitioner.
[2018-06-10] MEDS: Insulin NovoLIN Regular Correctional Sugar Inj SQ SCH ×4 (00:57→17:29)
[2018-06-10] MEDS: SODIUM CHLOR 0.9% IV.SIG SCH ×2 (00:58→14:10)
[2018-06-10] MEDS: LEVETIRACETAM IV.SIG SCH ×2 (00:58→14:10)
[2018-06-10] MEDS: Famotidine PF Inj 20 MG/2 ML Vial IV.PUSH SCH ×2 (00:58→09:09)
[2018-06-10] MEDS: Oral Hygiene Kit OROPHARYNG SCH ×4 (00:58→17:29)
--- NOTE | 2018-06-10 03:01 | XR ---
EXAM DATE: 06/10/2018 1:15 AM EDT AGE/SEX: 72 years / Male INDICATIONS: NG tube placement. CLINICAL DATA: This is the patient's subsequent encounter. Patient reports that signs and symptoms h ave been present for 1 week and indicates a pain score of Nonresponsive. MEDICAL/SURGICAL HISTORY: Non-responsive. Non-responsive. [place] [facility] [place]. . FINDINGS: A single AP view of the chest demonstrates left basilar density. Right lung relatively clear. Nasogas tric tube with tip in distal esophagus.. The cardiomediastinal contours are unremarkable. Osseous s tructures are intact. CONCLUSION: Nasogastric tube with tip in distal esophagus. This should be advanced at least 7 cm. Electronically signed by: Syd Gong MD 06/10/2018 2:59 AM EDT
--- NOTE | 2018-06-10 04:08 | XR ---
EXAM DATE: 06/10/2018 4:01 AM EDT AGE/SEX: 72 years / Male INDICATIONS: NG TUBE placement. CLINICAL DATA: This is the patient's initial encounter. Patient reports that signs and symptoms have been present for 1 day and indicates a pain score of 0/10. MEDICAL/SURGICAL HISTORY: None. None. COMPARISON: [facility] – [place] CHEST 1V SINGLE AP, 06/10/2018. . FINDINGS: A single AP view of the chest demonstrates bibasilar densities greater left lower lobe. Small pleural effusions. Nasogastric tube with tip in the stomach. The cardiomediastinal contours are unremarkabl e. Osseous structures are intact. CONCLUSION: Nasogastric tube with tip in stomach, but could still be advanced. Stable bibasilar densities and sma ll pleural effusions. Electronically signed by: Syd Gong MD 06/10/2018 4:06 AM EDT
--- NOTE | 2018-06-10 04:50 | XR ---
EXAM DATE: 06/10/2018 4:47 AM EDT AGE/SEX: 72 years / Male INDICATIONS: NG tube placement. CLINICAL DATA: This is the patient's subsequent encounter. Patient reports that signs and symptoms h ave been present for 1 week and indicates a pain score of Nonresponsive. MEDICAL/SURGICAL HISTORY: Non-responsive. Non-responsive. COMPARISON: [facility] – [place]ST 1V SINGLE AP, 06/10/2018. . FINDINGS: A single AP view of the chest demonstrates left basilar density. Small left pleural effusion. The car diomediastinal contours are unremarkable. Osseous structures are intact. Nasogastric tube with tip i n stomach. CONCLUSION: 1. Adequate placement of nasogastric tube. 2. Left basilar density and small pleural effusion. Electronically signed by: Syd Gong MD 06/10/2018 4:49 AM EDT
[2018-06-10 06:39] LABS: Baso # (Auto) 0.1 th/mm3 (0.0-0.2); Baso % (Auto) 1.8 % (0.0-2.0); Eos # (Auto) 0.1 th/mm3 (0.0-0.4); Hematocrit 27.3 % (39.0-51.0); Hemoglobin 9.2 gm/dL (13.0-17.0); Lymph # (Auto) 1.9 th/mm3 (1.0-4.8); Lymph % (Auto) 23.2 % (9.0-44.0); Mean Corpuscular HGB Conc 33.6 % (32.0-36.0); Mean Corpuscular Hemoglobin 31.8 pg (27.0-34.0); Mean Corpuscular Volume 94.6 fL (80.0-100.0); Mean Platelet Volume 7.4 fL (7.0-11.0); Mono % (Auto) 12.4 % (0.0-8.0); Neut # (Auto) 4.9 th/mm3 (1.8-7.7); Neut % (Auto) 61.6 % (16.0-70.0); Platelet Count 880 th/mm3 (150-450); Red Blood Count 2.89 mil/mm3 (4.50-5.90); Red Cell Distribution Width 18.3 % (11.6-17.2)
[2018-06-10 06:55] LABS: Anion Gap 7 meq/L (5-15); Blood Urea Nitrogen 17 mg/dL (7-18); Calcium 8.5 mg/dL (8.5-10.1); Carbon Dioxide 25.7 meq/L (21.0-32.0); Chloride 117 meq/L (98-107); Glomerular Filtration Rate Greater Than 89 mL/min (>89); Glucose,Random 83 mg/dL (74-106); Potassium 4.3 meq/L (3.5-5.1); Sodium 150 meq/L (136-145)
--- NOTE | 2018-06-10 07:14 | P.PNNEU ---
Subjective Subjective Comments: No acute events reported No headache No chest pain No dyspnea Active Medications: Active Medications Acetaminophen (Tylenol Liq) 650 mg PO Q6H PRN PRN Reason: SEE DOSE INSTRUCTIONS Last Admin: 06/05/18 04:47 Dose: 650 mg Acetylcysteine (Mucomyst 10% Neb) 2 ml NEB Q4HR NEB [facility] Last Admin: 06/10/18 03:16 Dose: 2 ml Al Hydroxide/Mg Hydroxide (Milk Of Magnesia Liq) 30 ml PO Q12H PRN PRN Reason: Mild Constipation Albuterol (Duoneb Neb (Prn)) 1 ampul NEB Q2HR NEB PRN PRN Reason: WHEEZING Albuterol (Duoneb Neb (Leigha)) 1 ampul NEB Q4HR NEB [facility] Last Admin: 06/10/18 03:16 Dose: 1 ampul Bisacodyl (Dulcolax Supp) 10 mg RECTAL DAILY PRN PRN Reason: SEVERE CONSITIPATION Carbidopa/Levodopa (Sinemet 25/100 Mg) 1 tab NG/OG 0600,1000,1400 [facility] Last Admin: 06/10/18 05:58 Dose: 1 tab Chlorhexidine Gluconate (Peridex 0.12% Oral Kit) 15 ml OROPHARYNG BID@0800, 2000 [facility] Last Admin: 06/09/18 22:00 Dose: Not Given Dextrose (D50w Vial) 50 ml IV.PUSH UNSCH PRN PRN Reason: PER HYPOGLYCEMIA PROTOCOL Enoxaparin Sodium (Lovenox Inj) 40 mg SQ Q24H [facility] Last Admin: 06/03/18 20:29 Dose: 40 mg Famotidine (Pepcid Pf Inj) 20 mg IV.PUSH Q8H [facility] Last Admin: 06/10/18 00:58 Dose: 20 mg Flumazenil (Romazecon Inj) 0.2 mg IV.PUSH Q1M PRN PRN Reason: OVERSEDATION Glucagon (Glucagon Inj) 1 mg OTHER PRN PRN PRN Reason: for Hypoglycemia Protocol Magnesium Sulfate Inj 4 gm/ (Sodium Chloride) 100 mls @ 50 mls/hr IV.SIG UNSCH PRN PRN Reason: For Magnesium 0.9 - 1.1 mg/dL Magnesium Sulfate Inj 2 gm/ (Sodium Chloride) 100 mls @ 50 mls/hr IV.SIG UNSCH PRN PRN Reason: For Magnesium 1.2 - 1.6 mg/dL Last Infusion: 06/04/18 07:00 Dose: Infused Potassium Chloride (Kcl 40 Meq Premix Inj) 40 meq in 100 mls @ 25 mls/hr IV.SIG Q2H PRN PRN Reason: For Potassium 2.8 - 3.2 mEq/L Potassium Chloride (Kcl 40 Meq Premix Inj) 40 meq in 100 mls @ 25 mls/hr IV.SIG UNSCH PRN PRN Reason: For Potassium 3.3 - 3.5 mEq/L Potassium Chloride (Kcl 20 Meq Premix Inj) 20 meq in 100 mls @ 50 mls/hr IV.SIG Q2H PRN PRN Reason: For Potassium 2.8 - 3.2 mEq/L Potassium Phosphate 30 mmol/ (Sodium Chloride) 260 mls @ 42 mls/hr IV.SIG UNSCH PRN PRN Reason: SEE LABEL COMMENTS Sodium Phosphate 30 mmol/ (Sodium Chloride) 260 mls @ 42 mls/hr IV.SIG UNSCH PRN PRN Reason: For Phosphorus < 2.5 mg/dL Last Infusion: 05/27/18 14:58 Dose: Infused Potassium Chloride (Kcl 20 Meq Premix Inj) 20 meq in 100 mls @ 50 mls/hr IV.SIG Q2H PRN PRN Reason: For Potassium 3.3 - 3.5 mEq/L Last Admin: 06/08/18 10:40 Dose: 35 mls/hr Aztreonam 1,000 mg/ Sodium (Chloride) 100 mls @ 200 mls/hr IV.SIG Q8H [facility]IG[facility] Last Infusion: 06/10/18 06:09 Dose: Infused Levetiracetam 750 mg/ Sodium (Chloride) 107.5 mls @ 430 mls/hr IV.SIG Q12H [facility] Last Admin: 06/10/18 00:58 Dose: 430 mls/hr Insulin Human Regular (Novolin R Correctional Sugar Inj) 0 units SQ Q6HR LEIGHA; Protocol Last Admin: 06/10/18 06:09 Dose: Not Given Lactulose (Lactulose Liq) 30 ml PO DAILY PRN PRN Reason: SEVERE CONSITIPATION Magnesium Oxide (Mag-Ox) 800 mg PO UNSCH PRN PRN Reason: For Magnesium 1.2 - 1.6 mg/dL Miscellaneous (Pill Splitter) 1 each OTHER UNSCH PRN PRN Reason: PILL SPLITTER Ondansetron HCl (Zofran Inj) 4 mg IV.PUSH Q6H PRN PRN Reason: NAUSEA OR VOMITING Potassium Bicarb/Potassium Chloride (K-Lyte Cl Eff) 50 meq PO UNSCH PRN PRN Reason: For Potassium 3.3 - 3.5 mEq/L Last Admin: 05/26/18 11:33 Dose: 50 meq Potassium Phosphate (K-Phos Original) 2,000 mg PO Q4H PRN PRN Reason: Phosphorus Less Than 2.5 mg/dL Last Admin: 05/31/18 17:47 Dose: 2,000 mg Potassium Phosphate (K-Phos Original) 2,000 mg PO UNSCH PRN PRN Reason: SEE LABEL COMMENTS Senna/Docusate Sodium (Anupama-Colace) 1 tab PO BID [facility] Last Admin: 06/09/18 22:00 Dose: 1 tab Sennosides (Senokot) 17.2 mg PO Q12H PRN PRN Reason: Moderate Constipation Sodium Chloride (Ns Flush) 2 ml IV.FLUSH BID [facility] Last Admin: 06/09/18 22:00 Dose: 2 ml Sodium Chloride (Ns Flush) 2 ml IV.FLUSH PRN PRN PRN Reason: FLUSH AFTER USING IV ACCESS Last Admin: 06/01/18 00:10 Dose: 2 ml Sterile Water (Free Water) 200 ml G-TUBE Q6HR [facility] Last Admin: 06/10/18 05:58 Dose: 200 ml Thiamine HCl (Vitamin B1) 100 mg PO DAILY [facility] Last Admin: 06/09/18 10:17 Dose: 100 mg Allergies/Adverse Reactions: Allergies Allergy/AdvReac Type Severity Reaction Status Date / Time Unable to Assess Allergy Unknown Unconscious Verified 05/25/18 17:12 Physical Exam Vital signs: Vital Signs 06/09/18 07:32 06/09/18 08:00 06/09/18 09:00 Temperature Pulse Rate 106 H 105 H Respiratory Rate 30 H 29 H Blood Pressure 133/62 120/81 Pulse Oximetry 99 97 99 06/09/18 10:00 06/09/18 11:00 06/09/18 11:23 Temperature Pulse Rate 104 H 104 H 105 H Respiratory Rate 18 16 18 Blood Pressure 109/68 111/57 L Pulse Oximetry 99 97 06/09/18 12:00 06/09/18 13:00 08/13/18 14:00 Temperature Pulse Rate 111 H 107 H 107 H Respiratory Rate 18 25 H 27 H Blood Pressure 107/63 107/59 L 111/60 Pulse Oximetry 94 L 96 96 06/09/18 14:15 06/09/18 16:00 06/09/18 19:27 Temperature Pulse Rate 107 H 110 H Respiratory Rate 20 19 16 Blood Pressure Pulse Oximetry 96 06/09/18 22:12 06/09/18 23:13 06/09/18 23:18 Temperature 99.3 F 99.0 F Pulse Rate 109 H 105 H 101 H Respiratory Rate 18 18 18 Blood Pressure 111/75 108/63 Pulse Oximetry 98 96 06/10/18 00:00 06/10/18 03:19 06/10/18 03:32 Temperature 98.5 F Pulse Rate 109 H 104 H 107 H Respiratory Rate 18 16 Blood Pressure 117/55 L Pulse Oximetry 97 06/10/18 04:00 Temperature Pulse Rate 107 H Respiratory Rate Blood Pressure Pulse Oximetry Intake & Output 06/09/18 06/10/18 06/10/18 18:59 06:59 18:59 Intake Total 240 / 240 507.5 / 507.5 Output Total 1100 / 1100 Balance 240 / 240 -592.5 / -592.5 Weight 55.3 kg Intake: IV 407.5 / 407.5 Azactam Inj 1,000 MG In NS Inj 300 / 300 100 ML @ 200 mls/hr IV.SIG Q8H [facility] Rx#:[id number] Keppra Inj 750 MG In NS Inj 100 107.5 / 107.5 ML @ 430 mls/hr IV.SIG Q12H [facility]IG[facility] Rx#:[id number] Tube Feeding 40 / 40 Tube Irrigant 200 / 200 Water Bolus Amount 100 / 100 Output: Urine Amount (Catheter) 1100 / 1100 Condom 1100 / 1100 Other: Date of Last Bowel Movement 06/06/18 06/09/18 # Incontinent Bowel Movements 1 Narrative: awakens dysarthric - Urinary Catheter Management Indwelling Urethral Catheter Cath placed during this visit: yes, but has since been removed by the nurse Reason for continuing: Not indwelling catheter Insertion date: 05/25/18 Insertion time: 15:00 Removal date: 05/26/18 Removal time: 12:00 Straight Cath placed during this visit: yes Reason for continuing: Not indwelling catheter Insertion date: 06/05/18 Insertion time: 00:20 Condom Cath placed during this visit: no Reason for continuing: Not indwelling catheter Objective Laboratory Results - last 24 hr 06/09/18 06/09/18 06/09/18 05:03 05:03 08:29 WBC 7.7 RBC 2.70 L Hgb 8.6 L Hct 25.8 L MCV 95.8 MCH 31.8 MCHC 33.2 RDW 18.6 H Plt Count 847 H MPV 7.9 Prelim Diff (Auto) Slide review pending Neut % (Auto) 69.4 Lymph % (Auto) 17.1 [place] % (Auto) 11.6 H Eos % (Auto) 0.9 Baso % (Auto) 1.0 Neut # (Auto) 5.3 Lymph # (Auto) 1.3 [place] # (Auto) 0.9 Eos # (Auto) 0.1 Baso # (Auto) 0.1 WBC Differential Manual diff final Seg Neuts % (Manual) 73 H Band Neuts % (Manual) 3 Lymphocytes % (Manual) 10 Monocytes % (Manual) 12 H Eosinophils % (Manual) 1 Myelocytes % (Man) 1 H Abs Neuts (Manual) 5.9 Differential Comment . Toxic Vacuolation Present H Platelet Estimate High H Platelet Morphology Clumped H Spherocytes Occ H Sodium 152 H Potassium 3.9 Chloride 117 H Carbon Dioxide 27.1 Anion Gap 8 BUN 21 H Creatinine 0.53 L Estimated GFR Greater than 89 POC Glucose 163 H Random Glucose 88 Calcium 8.5 Total Bilirubin 0.8 AST 73 H ALT 37 Alkaline Phosphatase 690 H Ammonia Total Protein 5.7 L Albumin 1.4 L 06/09/18 06/09/18 06/10/18 16:27 19:11 00:56 WBC RBC Hgb Hct MCV MCH MCHC RDW Plt Count MPV Prelim Diff (Auto) Neut % (Auto) Lymph % (Auto) [place] % (Auto) Eos % (Auto) Baso % (Auto) Neut # (Auto) Lymph # (Auto) [place] # (Auto) Eos # (Auto) Baso # (Auto) WBC Differential Seg Neuts % (Manual) Band Neuts % (Manual) Lymphocytes % (Manual) Monocytes % (Manual) Eosinophils % (Manual) Myelocytes % (Man) Abs Neuts (Manual) Differential Comment Toxic Vacuolation Platelet Estimate Platelet Morphology Spherocytes Sodium Potassium Chloride Carbon Dioxide Anion Gap BUN Creatinine Estimated GFR POC Glucose 154 H 109 139 H Random Glucose Calcium Total Bilirubin AST ALT Alkaline Phosphatase Ammonia Total Protein Albumin 06/10/18 06/10/18 06/10/18 06:09 06:18 06:18 WBC 8.0 RBC 2.89 L Hgb 9.2 L Hct 27.3 L MCV 94.6 MCH 31.8 MCHC 33.6 RDW 18.3 H Plt Count 880 H MPV 7.4 Prelim Diff (Auto) Neut % (Auto) 61.6 Lymph % (Auto) 23.2 [place] % (Auto) 12.4 H Eos % (Auto) 1.0 Baso % (Auto) 1.8 Neut # (Auto) 4.9 Lymph # (Auto) 1.9 [place] # (Auto) 1.0 H Eos # (Auto) 0.1 Baso # (Auto) 0.1 WBC Differential . Seg Neuts % (Manual) Band Neuts % (Manual) Lymphocytes % (Manual) Monocytes % (Manual) Eosinophils % (Manual) Myelocytes % (Man) Abs Neuts (Manual) Differential Comment Auto diff final Toxic Vacuolation Platelet Estimate Platelet Morphology Spherocytes Sodium 150 H Potassium 4.3 Chloride 117 H Carbon Dioxide 25.7 Anion Gap 7 BUN 17 Creatinine 0.55 L Estimated GFR Greater than 89 POC Glucose 85 Random Glucose 83 Calcium 8.5 Total Bilirubin AST ALT Alkaline Phosphatase Ammonia Total Protein Albumin 06/10/18 06:18 WBC RBC Hgb Hct MCV MCH MCHC RDW Plt Count MPV Prelim Diff (Auto) Neut % (Auto) Lymph % (Auto) [place] % (Auto) Eos % (Auto) Baso % (Auto) Neut # (Auto) Lymph # (Auto) [place] # (Auto) Eos # (Auto) Baso # (Auto) WBC Differential Seg Neuts % (Manual) Band Neuts % (Manual) Lymphocytes % (Manual) Monocytes % (Manual) Eosinophils % (Manual) Myelocytes % (Man) Abs Neuts (Manual) Differential Comment Toxic Vacuolation Platelet Estimate Platelet Morphology Spherocytes Sodium Potassium Chloride Carbon Dioxide Anion Gap BUN Creatinine Estimated GFR POC Glucose Random Glucose Calcium Total Bilirubin AST ALT Alkaline Phosphatase Ammonia 26 Total Protein Albumin Microbiology 06/05/18 17:40 Aerobic Blood Culture - Preliminary Blood - Peripheral No growth in 4 days Anaerobic Blood Culture - Preliminary No growth in 4 days 08/09/18 17:46 Aerobic Blood Culture - Preliminary Blood - Peripheral No growth in 4 days Anaerobic Blood Culture - Preliminary No growth in 4 days 06/04/18 09:50 Aerobic Blood Culture - Final Blood - Peripheral No growth in 5 days Anaerobic Blood Culture - Final No growth in 5 days Review/Management - Review/Management Plan: imp mri and eeg neg on keppra hold all sedatives could be prolonged postictal will fu saturday see if awakens over next few days no apparent reason why he would not - 06/02/18 much better should do well keppra off vent when able 06/05/18 no sz he should bounce back neurowise to prior level of functioning keppra stable neuro 06/07/18 no sz on keppra 1000 bid eeg neg check abg for some inc ms change may need peg? i tai sone no etoh and needs to take his meds lives w daughter she should see that he does 06/08/18 have PT oob recheck eeg lower keppra to 750 bid should be making progress ? chest PT getting dehydrated na 150 06/09/18 a little better today try sinemet see if helps tremor and motor system etoher i tai son will fu eeg ok 06/10/18 no change i would think he should bounce back to prior functioning will need peg short term however maybe a month or two
[2018-06-10] MEDS: Chlorhexidine 0.12% Oral Kit 15 ML UDC OROPHARYNG SCH ×2 (09:09→20:39)
[2018-06-10] MEDS: Senna/Docusate Sodium 8.6/50 MG Tablet PO SCH ×2 (09:09→20:39)
--- NOTE | 2018-06-10 11:05 | P.PNIM ---
Subjective Interval history: Still with confusion and mild agitation. Physical Exam Vital signs: Vital Signs 06/09/18 11:23 06/09/18 12:00 06/09/18 13:00 Temperature Pulse Rate 105 H 111 H 107 H Respiratory Rate 18 18 25 H Blood Pressure 107/63 107/59 L Pulse Oximetry 94 L 96 06/09/18 14:00 06/09/18 14:15 06/09/18 16:00 Temperature Pulse Rate 107 H 107 H Respiratory Rate 27 H 20 19 Blood Pressure 111/60 Pulse Oximetry 96 06/09/18 19:27 06/09/18 22:12 06/09/18 23:13 Temperature 99.3 F 99.0 F Pulse Rate 110 H 109 H 105 H Respiratory Rate 16 18 18 Blood Pressure 111/75 108/63 Pulse Oximetry 96 98 96 06/09/18 23:18 06/10/18 00:00 06/10/18 03:19 Temperature Pulse Rate 101 H 109 H 104 H Respiratory Rate 18 18 Blood Pressure Pulse Oximetry 06/10/18 03:32 06/10/18 04:00 06/10/18 08:00 Temperature 98.5 F 98.2 F Pulse Rate 107 H 107 H 107 H Respiratory Rate 16 24 Blood Pressure 117/55 L 123/69 Pulse Oximetry 97 97 06/10/18 08:04 Temperature Pulse Rate 106 H Respiratory Rate 18 Blood Pressure Pulse Oximetry 96 Intake & Output 06/09/18 06/10/18 06/10/18 18:59 06:59 18:59 Intake Total 240 / 240 507.5 / 507.5 Output Total 1100 / 1100 Balance 240 / 240 -592.5 / -592.5 Weight 55.3 kg Intake: IV 407.5 / 407.5 Azactam Inj 1,000 MG In NS Inj 300 / 300 100 ML @ 200 mls/hr IV.SIG Q8H [facility] Rx#:[id number] Keppra Inj 750 MG In NS Inj 100 107.5 / 107.5 ML @ 430 mls/hr IV.SIG Q12H [facility] Rx#:[id number] Tube Feeding 40 / 40 Tube Irrigant 200 / 200 Water Bolus Amount 100 / 100 Output: Urine Amount (Catheter) 1100 / 1100 Condom 1100 / 1100 Other: Date of Last Bowel Movement 06/06/18 06/09/18 06/09/18 # Incontinent Bowel Movements 1 Narrative: GENERAL: This is a well-nourished, well-developed patient, with NG tube in place with mild agitation and restraints CARDIOVASCULAR: Regular rate and rhythm RESPIRATORY: Relatively clear to auscultation bilaterally GASTROINTESTINAL: Abdomen soft, non-tender, nondistended. Normal active bowel sounds MUSCULOSKELETAL: Extremities without clubbing, cyanosis, or edema. NEURO: Confused agitated not oriented, moves all ext x4 - Urinary Catheter Management Indwelling Urethral Catheter Cath placed during this visit: yes, but has since been removed by the nurse Reason for continuing: Not indwelling catheter Insertion date: 05/25/18 Insertion time: 15:00 Removal date: 05/26/18 Removal time: 12:00 Straight Cath placed during this visit: yes Reason for continuing: Not indwelling catheter Insertion date: 06/05/18 Insertion time: 00:20 Condom Cath placed during this visit: no Reason for continuing: Not indwelling catheter Results - Labs CBC & Chem 7: 06/10/18 06:18 06/10/18 06:18 Laboratory Results - last 24 hr 06/09/18 06/09/18 06/10/18 16:27 19:11 00:56 WBC RBC Hgb Hct MCV MCH MCHC RDW Plt Count MPV Neut % (Auto) Lymph % (Auto) [place] % (Auto) Eos % (Auto) Baso % (Auto) Neut # (Auto) Lymph # (Auto) [place] # (Auto) Eos # (Auto) Baso # (Auto) WBC Differential Differential Comment Sodium Potassium Chloride Carbon Dioxide Anion Gap BUN Creatinine Estimated GFR POC Glucose 154 H 109 139 H Random Glucose Calcium Ammonia 06/10/18 06/10/18 06/10/18 06:09 06:18 06:18 WBC 8.0 RBC 2.89 L Hgb 9.2 L Hct 27.3 L MCV 94.6 MCH 31.8 MCHC 33.6 RDW 18.3 H Plt Count 880 H MPV 7.4 Neut % (Auto) 61.6 Lymph % (Auto) 23.2 [place] % (Auto) 12.4 H Eos % (Auto) 1.0 Baso % (Auto) 1.8 Neut # (Auto) 4.9 Lymph # (Auto) 1.9 [place] # (Auto) 1.0 H Eos # (Auto) 0.1 Baso # (Auto) 0.1 WBC Differential . Differential Comment Auto diff final Sodium 150 H Potassium 4.3 Chloride 117 H Carbon Dioxide 25.7 Anion Gap 7 BUN 17 Creatinine 0.55 L Estimated GFR Greater than 89 POC Glucose 85 Random Glucose 83 Calcium 8.5 Ammonia 06/10/18 06:18 WBC RBC Hgb Hct MCV MCH MCHC RDW Plt Count MPV Neut % (Auto) Lymph % (Auto) [place] % (Auto) Eos % (Auto) Baso % (Auto) Neut # (Auto) Lymph # (Auto) [place] # (Auto) Eos # (Auto) Baso # (Auto) WBC Differential Differential Comment Sodium Potassium Chloride Carbon Dioxide Anion Gap BUN Creatinine Estimated GFR POC Glucose Random Glucose Calcium Ammonia 26 Microbiology 06/05/18 17:40 Blood - Peripheral Aerobic Blood Culture - Final No growth in 5 days 06/05/18 17:40 Blood - Peripheral Anaerobic Blood Culture - Final No growth in 5 days 06/05/18 17:46 Blood - Peripheral Aerobic Blood Culture - Final No growth in 5 days 06/05/18 17:46 Blood - Peripheral Anaerobic Blood Culture - Final No growth in 5 days 06/04/18 09:50 Blood - Peripheral Aerobic Blood Culture - Final No growth in 5 days 06/04/18 09:50 Blood - Peripheral Anaerobic Blood Culture - Final No growth in 5 days - Imaging Impressions Chest X-Ray 06/10/18 00:00 CONCLUSION: Nasogastric tube with tip in distal esophagus. This should be advanced at least 7 cm. Chest X-Ray 06/10/18 00:00 CONCLUSION: Nasogastric tube with tip in stomach, but could still be advanced. Stable bibasilar densities and small pleural effusions. Chest X-Ray 06/10/18 00:00 CONCLUSION: 1. Adequate placement of nasogastric tube. 2. Left basilar density and small pleural effusion. Assessment and Plan - Plan Alcohol dependence Alcohol withdrawal Seizure disorder with active seizures- improving. Medication noncompliance Acute combined toxic and metabolic encephalopathy-persist. Frequent neurochecks with continued agitation and confusion which persists. Continue with Keppra per Neuro EEG 05/26: negative for ictal activity. generalized slowing. Repeat EEG ordered on 05/29 in view of tremors noted in right upper extremity. Appreciate neurology consultation and recommendations. On thiamine and multivitamins Head CT negative for acute disease 05/25. MRI brain: Remote left temporal infarct, atrophy 05/27 Repeat ammonia level not elevated. Acute hypoxic and hypercarbic respiratory failure Head of bed elevated Continue with oxygen support and keep sats >92% Bronchodilators, Severe dysphasia and high risk for aspirationcontinue n.p.o. and speech therapy if does not improve we will need to consider PEG tube. urinary retention - no indication for tubbs. straight cath q6h. Monitor renal function. I/O's, electrolytes replacement per protocol Hypernatremia Change Free water increased to 250 every 6 hour due to hypernatremia Alcoholic cirrhosis Acute protein calorie malnutritionsevere Severe hypokalemia- resolving.Replete today Acute intravascular volume depletion- resolving. Hyponatremia- resolved and now with hypernatremia Dehydration- resolving. ICU electrolyte protocol NPO by speech, continue tube feeds - Jevity 1.5 with goal rate 60ml/hr Repeat swallow evaluation today Healthcare acquired pneumonia UTI noted. Urine cx: Kleb pneumonia on 05/29, Continue Aztreonam and Vanco per ID, day number #6 06/04, Urine, Blood culture, sputum cx: NGTD ID is following. Leukocytosis trending down Anemia, chronic likely due to history of cirrhosis and chronic disease monitor CBC, s/p transfuse 2u PRBC 06/04. Hyperglycemia of critical illness -- SSI Prophylaxis: GI Prophylaxis Pepcid DVT Prophylaxis -- SCDs Lovenox held for anemia requiring blood transfusion Lines: Peripheral IVs Palliative care is following Overall poor long-term prognosis Discharge Planning: May need long-term placement.
--- NOTE | 2018-06-10 12:50 | P.PNID ---
Subjective Remarks: Patient is on O2 via nasal cannula. Has gurgling upper airway noises. Receiving tube feedings. Awake, lethargic. Afebrile. ID consulted for fevers, pneumonia, worsening leukocytosis. This is a 72-year-old male who was brought to the emergency department after he was found to be having grand mal seizures. The patient was intubated and admitted to the intensive care unit. The patient has increased white blood cell count and fever. Past Medical History: PAST MEDICAL HISTORY: Multiple strokes, seizure disorder, alcoholic liver disease. Allergies/Adverse Reactions: Allergies Unable to Assess Allergy (Unknown, Verified 05/25/18 17:12) Unconscious Objective Vital Signs 06/09/18 13:00 06/09/18 14:00 06/09/18 14:15 Temperature Pulse Rate 107 H 107 H 107 H Respiratory Rate 25 H 27 H 20 Blood Pressure 107/59 L 111/60 Pulse Oximetry 96 96 06/09/18 16:00 06/09/18 19:27 06/09/18 22:12 Temperature 99.3 F Pulse Rate 110 H 109 H Respiratory Rate 19 16 18 Blood Pressure 111/75 Pulse Oximetry 96 98 06/09/18 23:13 06/09/18 23:18 06/10/18 00:00 Temperature 99.0 F Pulse Rate 105 H 101 H 109 H Respiratory Rate 18 18 Blood Pressure 108/63 Pulse Oximetry 96 06/10/18 03:19 06/10/18 03:32 06/10/18 04:00 Temperature 98.5 F Pulse Rate 104 H 107 H 107 H Respiratory Rate 18 16 Blood Pressure 117/55 L Pulse Oximetry 97 06/10/18 08:00 06/10/18 08:04 06/10/18 11:24 Temperature 98.2 F Pulse Rate 107 H 106 H 99 H Respiratory Rate 24 18 18 Blood Pressure 123/69 Pulse Oximetry 97 96 06/10/18 12:00 Temperature 98.3 F Pulse Rate 117 H Respiratory Rate 22 Blood Pressure 113/57 L Pulse Oximetry 99 Intake & Output 06/09/18 06/10/18 06/10/18 18:59 06:59 18:59 Intake Total 240 / 240 507.5 / 507.5 Output Total 1100 / 1100 Balance 240 / 240 -592.5 / -592.5 Weight 55.3 kg Intake: IV 407.5 / 407.5 Azactam Inj 1,000 MG In NS Inj 300 / 300 100 ML @ 200 mls/hr IV.SIG Q8H [facility] Rx#:[id number] Keppra Inj 750 MG In NS Inj 100 107.5 / 107.5 ML @ 430 mls/hr IV.SIG Q12H [facility] Rx#:[id number] Tube Feeding 40 / 40 Tube Irrigant 200 / 200 Water Bolus Amount 100 / 100 Output: Urine Amount (Catheter) 1100 / 1100 Condom 1100 / 1100 Other: Date of Last Bowel Movement 06/06/18 06/09/18 06/09/18 # Incontinent Bowel Movements 1 06/05/18 17:40 Blood - Peripheral Aerobic Blood Culture - Final No growth in 5 days 06/05/18 17:40 Blood - Peripheral Anaerobic Blood Culture - Final No growth in 5 days 06/05/18 17:46 Blood - Peripheral Aerobic Blood Culture - Final No growth in 5 days 06/05/18 17:46 Blood - Peripheral Anaerobic Blood Culture - Final No growth in 5 days 06/04/18 09:50 Blood - Peripheral Aerobic Blood Culture - Final No growth in 5 days 06/04/18 09:50 Blood - Peripheral Anaerobic Blood Culture - Final No growth in 5 days Lab - Hematology Results 06/09/18 06/10/18 05:03 06:18 WBC 7.7 8.0 RBC 2.70 L 2.89 L Hgb 8.6 L 9.2 L Hct 25.8 L 27.3 L MCV 95.8 94.6 MCH 31.8 31.8 MCHC 33.2 33.6 RDW 18.6 H 18.3 H Plt Count 847 H 880 H MPV 7.9 7.4 Prelim Diff (Auto) Slide review pending Neut % (Auto) 69.4 61.6 Lymph % (Auto) 17.1 23.2 [place] % (Auto) 11.6 H 12.4 H Eos % (Auto) 0.9 1.0 Baso % (Auto) 1.0 1.8 Neut # (Auto) 5.3 4.9 Lymph # (Auto) 1.3 1.9 [place] # (Auto) 0.9 1.0 H Eos # (Auto) 0.1 0.1 Baso # (Auto) 0.1 0.1 WBC Differential Manual diff final . Seg Neuts % (Manual) 73 H Band Neuts % (Manual) 3 Lymphocytes % (Manual) 10 Monocytes % (Manual) 12 H Eosinophils % (Manual) 1 Myelocytes % (Man) 1 H Abs Neuts (Manual) 5.9 Differential Comment . Auto diff final Toxic Vacuolation Present H Platelet Estimate High H Platelet Morphology Clumped H Spherocytes Occ H Lab - Chemistry Results 06/08/18 06/08/18 06/08/18 18:35 19:52 19:54 Sodium Potassium 4.2 D Chloride Carbon Dioxide Anion Gap BUN Creatinine Estimated GFR POC Glucose 108 100 Random Glucose Calcium Total Bilirubin AST ALT Alkaline Phosphatase Ammonia Total Protein Albumin 06/09/18 06/09/18 06/09/18 00:24 05:02 05:03 Sodium 152 H Potassium 3.9 Chloride 117 H Carbon Dioxide 27.1 Anion Gap 8 BUN 21 H Creatinine 0.53 L Estimated GFR Greater than 89 POC Glucose 84 106 Random Glucose 88 Calcium 8.5 Total Bilirubin 0.8 AST 73 H ALT 37 Alkaline Phosphatase 690 H Ammonia Total Protein 5.7 L Albumin 1.4 L 06/09/18 06/09/18 06/09/18 08:29 16:27 19:11 Sodium Potassium Chloride Carbon Dioxide Anion Gap BUN Creatinine Estimated GFR POC Glucose 163 H 154 H 109 Random Glucose Calcium Total Bilirubin AST ALT Alkaline Phosphatase Ammonia Total Protein Albumin 06/10/18 06/10/18 06/10/18 00:56 06:09 06:18 Sodium 150 H Potassium 4.3 Chloride 117 H Carbon Dioxide 25.7 Anion Gap 7 BUN 17 Creatinine 0.55 L Estimated GFR Greater than 89 POC Glucose 139 H 85 Random Glucose 83 Calcium 8.5 Total Bilirubin AST ALT Alkaline Phosphatase Ammonia Total Protein Albumin 06/10/18 06/10/18 06:18 12:25 Sodium Potassium Chloride Carbon Dioxide Anion Gap BUN Creatinine Estimated GFR POC Glucose 94 Random Glucose Calcium Total Bilirubin AST ALT Alkaline Phosphatase Ammonia 26 Total Protein Albumin Imaging: ITS Impressions Head CT 05/25/18 15:22 CONCLUSION: Chronic small vessel ischemic and atrophic changes. Head MRI 05/27/18 00:00 CONCLUSION: 1. Atrophy, white matter disease and remote left temporal infarct with encephalomalacia. Abdomen X-Ray 06/08/18 00:00 CONCLUSION: Nasogastric tube tip in the distal stomach. Chest X-Ray 06/10/18 00:00 CONCLUSION: 1. Adequate placement of nasogastric tube. 2. Left basilar density and small pleural effusion. Physical Exam: GENERAL: Awake. Lethargic. HEENT: Head is atraumatic. Bitemporal wasting. Extraocular movements appear grossly intact. No icterus. NECK: Supple without adenopathy. LUNGS: Coarse rhonchi bilateral. HEART: Regular S1 and S2. No murmurs heard. ABDOMEN: Bowel sounds present. Soft, no tenderness appreciated. EXTREMITIES: No clubbing or cyanosis. Swelling at the right upper extremity. SKIN: No diffuse rash. NEUROLOGIC: Unable to fully assess. Following some commands. PSYCHIATRIC: Unable to assess. Assessment and Plan - Plan IMPRESSION: 1. Pneumonia, aspiration. The patient is status post seizure. Now getting tube feeds. Could be having ongoing aspiration. 2. Leukocytosis. White blood cell count down to normal. 3. Acute respiratory failure. Extubated. 4. Urinary tract infection with Klebsiella. Treated. 5. Seizure disorder. RECOMMENDATIONS: 1. Continue aztreonam. 2. Monitor temperature. 3. Monitor clinical status.
[2018-06-10] MEDS ORDERED: Pharmacy Ordered Lab Info OTHER ONE (13:45)
--- NOTE | 2018-06-10 15:02 | P.PNPAL ---
Reason for Visit Reason for visit: a. To assist with evaluation and management of symptoms including: confusion, dyspnea b. To assist medical decision maker(s) with: better understanding of current medical conditions; weighing benefits/burdens of medical treatment options; making medical treatment decisions. Subjective Subjective/Interval History: Pt in bed, napping, snoring. Did not rouse to verbal stimulation or my exam. Appears comfortable. Lung sounds coarse. Sat 99%. still failing swallow evals. Has NGT. TF running. Advance Directives Health Care Surrogate Name and Number: Carlos Alberto Barnett [phone]; Amber Barnett [phone], Objective Vital Signs: Vital Signs 06/09/18 16:00 06/09/18 19:27 06/09/18 22:12 Temperature 99.3 F Pulse Rate 110 H 109 H Respiratory Rate 19 16 18 Blood Pressure 111/75 Pulse Oximetry 96 98 06/09/18 23:13 06/09/18 23:18 06/10/18 00:00 Temperature 99.0 F Pulse Rate 105 H 101 H 109 H Respiratory Rate 18 18 Blood Pressure 108/63 Pulse Oximetry 96 06/10/18 03:19 06/10/18 03:32 06/10/18 04:00 Temperature 98.5 F Pulse Rate 104 H 107 H 107 H Respiratory Rate 18 16 Blood Pressure 117/55 L Pulse Oximetry 97 06/10/18 08:00 06/10/18 08:04 06/10/18 11:24 Temperature 98.2 F Pulse Rate 107 H 106 H 99 H Respiratory Rate 24 18 18 Blood Pressure 123/69 Pulse Oximetry 97 96 06/10/18 12:00 Temperature 98.3 F Pulse Rate 117 H Respiratory Rate 22 Blood Pressure 113/57 L Pulse Oximetry 99 Intake & Output 06/09/18 06/10/18 06/10/18 18:59 06:59 18:59 Intake Total 240 / 240 615.0 / 615.0 Output Total 1100 / 1100 Balance 240 / 240 -485.0 / -485.0 Weight 55.3 kg Intake: IV 515.0 / 515.0 Azactam Inj 1,000 MG In NS Inj 300 / 300 100 ML @ 200 mls/hr IV.SIG Q8H [facility] Rx#:[id number] Keppra Inj 750 MG In NS Inj 100 215.0 / 215.0 ML @ 430 mls/hr IV.SIG Q12H [facility] Rx#:[id number] Tube Feeding 40 / 40 Tube Irrigant 200 / 200 Water Bolus Amount 100 / 100 Output: Urine Amount (Catheter) 1100 / 1100 Condom 1100 / 1100 Other: Date of Last Bowel Movement 06/06/18 06/09/18 06/09/18 # Incontinent Bowel Movements 1 Physical Exam: CONSTITUTIONAL/GENERAL: cachectic SKIN: No jaundice, rashes, or lesions. No wounds seen anteriorly. Skin temperature appropriate. Not diaphoretic. HEAD: Atraumatic. Normocephalic. EYES: Right pupil reactive, left pupil oval shaped and fixed. eyes glassy. Fundi not examined. ENT: Nose without bleeding or purulent drainage. CARDIOVASCULAR: tachycardic, irr HR, no gallops, or rubs. RESPIRATORY/CHEST: Symmetric, unlabored respirations. Clear to auscultation. Breath sounds equal bilaterally. GASTROINTESTINAL: Abdomen soft, non-tender, nondistended. No hepato-splenomegaly , or palpable masses. No guarding. Bowel sounds present. GENITOURINARY: Without palpable bladder distension. Martin catheter in place. MUSCULOSKELETAL: + 2 pittingBLE edema NEUROLOGICAL: opens eyes, tracks. minimally verbal. cooperative. PSYCHIATRIC: unable to assess 2/2 mental status Diagnostic Tests Laboratory: Laboratory Results - last 72 hr 06/07/18 06/08/18 06/08/18 20:42 00:08 01:45 WBC RBC Hgb Hct MCV MCH MCHC RDW Plt Count MPV Prelim Diff (Auto) Neut % (Auto) Lymph % (Auto) [place] % (Auto) Eos % (Auto) Baso % (Auto) Neut # (Auto) Lymph # (Auto) [place] # (Auto) Eos # (Auto) Baso # (Auto) WBC Differential Seg Neuts % (Manual) Band Neuts % (Manual) Lymphocytes % (Manual) Monocytes % (Manual) Eosinophils % (Manual) Myelocytes % (Man) Abs Neuts (Manual) Differential Comment Toxic Vacuolation Platelet Estimate Platelet Morphology Spherocytes Sodium 150 H Potassium 3.4 L D Chloride 114 H Carbon Dioxide 29.8 Anion Gap 6 BUN 25 H Creatinine 0.56 L Estimated GFR Greater than 89 POC Glucose 108 106 Random Glucose 95 Calcium 8.1 L Total Bilirubin 1.2 H AST 128 H ALT 50 Alkaline Phosphatase 542 H Ammonia Total Protein 5.7 L Albumin 1.3 L Vancomycin Trough 22.1 H 06/08/18 06/08/18 06/08/18 03:53 05:18 08:16 WBC 8.8 RBC 2.69 L Hgb 8.6 L Hct 25.9 L MCV 96.3 MCH 32.0 MCHC 33.2 RDW 18.2 H Plt Count 699 H MPV 7.8 Prelim Diff (Auto) Neut % (Auto) 71.2 H Lymph % (Auto) 13.4 [place] % (Auto) 13.8 H Eos % (Auto) 1.0 Baso % (Auto) 0.6 Neut # (Auto) 6.3 Lymph # (Auto) 1.2 [place] # (Auto) 1.2 H Eos # (Auto) 0.1 Baso # (Auto) 0.0 WBC Differential . Seg Neuts % (Manual) Band Neuts % (Manual) Lymphocytes % (Manual) Monocytes % (Manual) Eosinophils % (Manual) Myelocytes % (Man) Abs Neuts (Manual) Differential Comment Auto diff final Toxic Vacuolation Platelet Estimate Platelet Morphology Spherocytes Sodium Potassium Chloride Carbon Dioxide Anion Gap BUN Creatinine Estimated GFR POC Glucose 127 H 103 Random Glucose Calcium Total Bilirubin AST ALT Alkaline Phosphatase Ammonia Total Protein Albumin Vancomycin Trough 06/08/18 06/08/18 06/08/18 12:33 18:35 19:52 WBC RBC Hgb Hct MCV MCH MCHC RDW Plt Count MPV Prelim Diff (Auto) Neut % (Auto) Lymph % (Auto) [place] % (Auto) Eos % (Auto) Baso % (Auto) Neut # (Auto) Lymph # (Auto) [place] # (Auto) Eos # (Auto) Baso # (Auto) WBC Differential Seg Neuts % (Manual) Band Neuts % (Manual) Lymphocytes % (Manual) Monocytes % (Manual) Eosinophils % (Manual) Myelocytes % (Man) Abs Neuts (Manual) Differential Comment Toxic Vacuolation Platelet Estimate Platelet Morphology Spherocytes Sodium Potassium Chloride Carbon Dioxide Anion Gap BUN Creatinine Estimated GFR POC Glucose 119 H 108 100 Random Glucose Calcium Total Bilirubin AST ALT Alkaline Phosphatase Ammonia Total Protein Albumin Vancomycin Trough 06/08/18 06/09/18 06/09/18 19:54 00:24 05:02 WBC RBC Hgb Hct MCV MCH MCHC RDW Plt Count MPV Prelim Diff (Auto) Neut % (Auto) Lymph % (Auto) [place] % (Auto) Eos % (Auto) Baso % (Auto) Neut # (Auto) Lymph # (Auto) [place] # (Auto) Eos # (Auto) Baso # (Auto) WBC Differential Seg Neuts % (Manual) Band Neuts % (Manual) Lymphocytes % (Manual) Monocytes % (Manual) Eosinophils % (Manual) Myelocytes % (Man) Abs Neuts (Manual) Differential Comment Toxic Vacuolation Platelet Estimate Platelet Morphology Spherocytes Sodium Potassium 4.2 D Chloride Carbon Dioxide Anion Gap BUN Creatinine Estimated GFR POC Glucose 84 106 Random Glucose Calcium Total Bilirubin AST ALT Alkaline Phosphatase Ammonia Total Protein Albumin Vancomycin Trough 06/09/18 06/09/18 06/09/18 05:03 05:03 08:29 WBC 7.7 RBC 2.70 L Hgb 8.6 L Hct 25.8 L MCV 95.8 MCH 31.8 MCHC 33.2 RDW 18.6 H Plt Count 847 H MPV 7.9 Prelim Diff (Auto) Slide review pending Neut % (Auto) 69.4 Lymph % (Auto) 17.1 [place] % (Auto) 11.6 H Eos % (Auto) 0.9 Baso % (Auto) 1.0 Neut # (Auto) 5.3 Lymph # (Auto) 1.3 [place] # (Auto) 0.9 Eos # (Auto) 0.1 Baso # (Auto) 0.1 WBC Differential Manual diff final Seg Neuts % (Manual) 73 H Band Neuts % (Manual) 3 Lymphocytes % (Manual) 10 Monocytes % (Manual) 12 H Eosinophils % (Manual) 1 Myelocytes % (Man) 1 H Abs Neuts (Manual) 5.9 Differential Comment . Toxic Vacuolation Present H Platelet Estimate High H Platelet Morphology Clumped H Spherocytes Occ H Sodium 152 H Potassium 3.9 Chloride 117 H Carbon Dioxide 27.1 Anion Gap 8 BUN 21 H Creatinine 0.53 L Estimated GFR Greater than 89 POC Glucose 163 H Random Glucose 88 Calcium 8.5 Total Bilirubin 0.8 AST 73 H ALT 37 Alkaline Phosphatase 690 H Ammonia Total Protein 5.7 L Albumin 1.4 L Vancomycin Trough 06/09/18 06/09/18 06/10/18 16:27 19:11 00:56 WBC RBC Hgb Hct MCV MCH MCHC RDW Plt Count MPV Prelim Diff (Auto) Neut % (Auto) Lymph % (Auto) [place] % (Auto) Eos % (Auto) Baso % (Auto) Neut # (Auto) Lymph # (Auto) [place] # (Auto) Eos # (Auto) Baso # (Auto) WBC Differential Seg Neuts % (Manual) Band Neuts % (Manual) Lymphocytes % (Manual) Monocytes % (Manual) Eosinophils % (Manual) Myelocytes % (Man) Abs Neuts (Manual) Differential Comment Toxic Vacuolation Platelet Estimate Platelet Morphology Spherocytes Sodium Potassium Chloride Carbon Dioxide Anion Gap BUN Creatinine Estimated GFR POC Glucose 154 H 109 139 H Random Glucose Calcium Total Bilirubin AST ALT Alkaline Phosphatase Ammonia Total Protein Albumin Vancomycin Trough 06/10/18 06/10/18 06/10/18 06:09 06:18 06:18 WBC 8.0 RBC 2.89 L Hgb 9.2 L Hct 27.3 L MCV 94.6 MCH 31.8 MCHC 33.6 RDW 18.3 H Plt Count 880 H MPV 7.4 Prelim Diff (Auto) Neut % (Auto) 61.6 Lymph % (Auto) 23.2 [place] % (Auto) 12.4 H Eos % (Auto) 1.0 Baso % (Auto) 1.8 Neut # (Auto) 4.9 Lymph # (Auto) 1.9 [place] # (Auto) 1.0 H Eos # (Auto) 0.1 Baso # (Auto) 0.1 WBC Differential . Seg Neuts % (Manual) Band Neuts % (Manual) Lymphocytes % (Manual) Monocytes % (Manual) Eosinophils % (Manual) Myelocytes % (Man) Abs Neuts (Manual) Differential Comment Auto diff final Toxic Vacuolation Platelet Estimate Platelet Morphology Spherocytes Sodium 150 H Potassium 4.3 Chloride 117 H Carbon Dioxide 25.7 Anion Gap 7 BUN 17 Creatinine 0.55 L Estimated GFR Greater than 89 POC Glucose 85 Random Glucose 83 Calcium 8.5 Total Bilirubin AST ALT Alkaline Phosphatase Ammonia Total Protein Albumin Vancomycin Trough 06/10/18 06/10/18 06:18 12:25 WBC RBC Hgb Hct MCV MCH MCHC RDW Plt Count MPV Prelim Diff (Auto) Neut % (Auto) Lymph % (Auto) [place] % (Auto) Eos % (Auto) Baso % (Auto) Neut # (Auto) Lymph # (Auto) [place] # (Auto) Eos # (Auto) Baso # (Auto) WBC Differential Seg Neuts % (Manual) Band Neuts % (Manual) Lymphocytes % (Manual) Monocytes % (Manual) Eosinophils % (Manual) Myelocytes % (Man) Abs Neuts (Manual) Differential Comment Toxic Vacuolation Platelet Estimate Platelet Morphology Spherocytes Sodium Potassium Chloride Carbon Dioxide Anion Gap BUN Creatinine Estimated GFR POC Glucose 94 Random Glucose Calcium Total Bilirubin AST ALT Alkaline Phosphatase Ammonia 26 Total Protein Albumin Vancomycin Trough Result Diagrams: 06/10/18 06:18 06/10/18 06:18 Microbiology: Microbiology 06/05/18 17:40 Aerobic Blood Culture - Final Blood - Peripheral No growth in 5 days Anaerobic Blood Culture - Final No growth in 5 days 06/05/18 17:46 Aerobic Blood Culture - Final Blood - Peripheral No growth in 5 days Anaerobic Blood Culture - Final No growth in 5 days 06/04/18 09:50 Aerobic Blood Culture - Final Blood - Peripheral No growth in 5 days Anaerobic Blood Culture - Final No growth in 5 days Imaging: ITS Impressions Head CT 05/25/18 15:22 CONCLUSION: Chronic small vessel ischemic and atrophic changes. Head MRI 05/27/18 00:00 CONCLUSION: 1. Atrophy, white matter disease and remote left temporal infarct with encephalomalacia. Abdomen X-Ray 06/08/18 00:00 CONCLUSION: Nasogastric tube tip in the distal stomach. Chest X-Ray 06/10/18 00:00 CONCLUSION: 1. Adequate placement of nasogastric tube. 2. Left basilar density and small pleural effusion. 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 . Has 10 kids. Originally from [place], grew up in [place], has been in [place] for 40 y. Lives with one of his daughters. Some of his children are local. Spiritual: Judaism non-samaritan, daughter requests apartment hotel manager visit Legal: Pt is not capacitated to make medical decisions. It is unclear if he will regain capacity. He has previously designated son Carlos Alberto Barnett as primary HCS and daughter Amber as secondary. Ethical issues impacting care: none identified Important Contacts: Carlos Alberto Barnett, son/primary HCS: [phone] Amber Barnett, daughter/alternate HCS: [phone] or [phone] Prognosis: 72 yo male with seizure disorder since head injury 5 y ago, noncompliance with seizure meds, 50 year hx drinking up to or more than a gallon of wine daily admitted 05/25 after having seizure like activity, intubated in the field. EEG showing encephalopathy. He appears cachectic and malnourished. It is unclear if his encephalopathy will improve completely. His poor nutrition status makes full physical recovery unlikely. He is quite likely to continue having complications such as seizures d/t noncompliance, episodes of withdrawal, falls. He will likely continue to decline. Code Status: No Code DNR Plan: - LEGAL DECISON MAKER - HCS completed 02/13/17 Amber Sellers secondary - CODE STATUS- alternate code; intubation only. - GOALS - aggressive short of no code /DNR. Primary HCS Carlos Alberto would like to proceed with feeding tube placement if pt continues to fail swallow eval. - SYMPTOMS - * dyspnea - intubated in field. extubated 06/06. sat 99% lung sounds coarse, + wheezes today. Has PRN and scheduled duonebs. * confusion - multifactorial, long hx etoh abuse, seizure disorder, head injury. ?withdrawal vs seizures vs both? EEG 05/26 showing encephalopathy, no seizure activity.on my eval he was lethargic- didn't rouse to verbal stimuli or my exam. off sedation, now extubated. Per neurology trial sinemet, neuro feels he will return to his baseline neurologically - Palliative care will continue to follow during hospital course as condition evolves, to assist patient/decision-maker with understanding of medical conditions, weighing benefits/burdens of treatment options, for clarification of goals of treatment. Additionally will assist with any symptoms of palliative concern
--- NOTE | 2018-06-10 15:54 | P.PNWCN ---
Wound Care Nurse Consult Description: FOLLOW UP for previous Consult for Wound Management of sacral wound per Kristy Snow/Dr Ramachandran Communicated with: Jess RN at bedside Patient son outside room Recommendation: Keep patient off of his sacrum. Position patient from left to right sides only. Leave hydrocolloid in place over stage IV pressure injury for <5days unless soiled or dislodged. Please use only disposable ultrasorb underpad with low airloss mattress. *DO NOT USE COTTON PULL PADS WITH AIRAPY MATTRESS* Additional information: *LATE ENTRY* Patient seen earlier this morning ~0930. Patient was turned to his left side for assessment of sacrum that was previously staged by headline writer as unstageable. Wound on sacrum now presents as DTI opened to full thickness skin loss at the edges. There is an island of moist friable adhered tissue with jagged edges surrounded by white fascia and pink tissue. Wound is pressure and moisture as evidenced by the jagged margins. Now that wound has opened recommendations are for hydrocolloid Q5D. Wound/Pressure Injury - Wound Sacrum Wound Staging: Stage IV Wound Assessment: Ongoing Wound Type: Pressure Injury Is This a Chronic Wound: No Requested from Provider a Wound Care Consult: Yes Length: 8 Width: 11 Depth: 0.2 Wound Bed Appearance: Peeling Skin, [place], Red, White Wound Bed Appearance: island of intact friable tissue surrounded by full thickness skin loss with ~30% white fascia and ~20% pink tissue Drainage Amount: None Drainage Odor: No Odor Dressing Status: Changed ("APPLED") Primary Dressing: Hydrocolloid Wound Dressing Change Date: 06/10/18 (to be changed Q5D)
[2018-06-11] MEDS: LEVETIRACETAM IV.SIG SCH (00:12)
[2018-06-11] MEDS: Oral Hygiene Kit OROPHARYNG SCH ×4 (00:12→17:03)
[2018-06-11] MEDS: SODIUM CHLOR 0.9% IV.SIG SCH (00:12)
[2018-06-11] MEDS: Insulin NovoLIN Regular Correctional Sugar Inj SQ SCH ×4 (00:36→17:20)
--- NOTE | 2018-06-11 07:32 | P.PNNEU ---
Subjective Subjective Comments: No acute events reported No headache No chest pain No dyspnea Active Medications: Active Medications Acetaminophen (Tylenol Liq) 650 mg PO Q6H PRN PRN Reason: SEE DOSE INSTRUCTIONS Last Admin: 06/05/18 04:47 Dose: 650 mg Acetylcysteine (Mucomyst 10% Neb) 2 ml NEB Q4HR NEB [facility] Last Admin: 06/11/18 04:10 Dose: 2 ml Al Hydroxide/Mg Hydroxide (Milk Of Magnesia Liq) 30 ml PO Q12H PRN PRN Reason: Mild Constipation Albuterol (Duoneb Neb (Prn)) 1 ampul NEB Q2HR NEB PRN PRN Reason: WHEEZING Albuterol (Duoneb Neb (Leigha)) 1 ampul NEB Q4HR NEB [facility] Last Admin: 06/11/18 04:10 Dose: 1 ampul Bisacodyl (Dulcolax Supp) 10 mg RECTAL DAILY PRN PRN Reason: SEVERE CONSITIPATION Carbidopa/Levodopa (Sinemet 25/100 Mg) 1 tab NG/OG 0600,1000,1400 [facility] Last Admin: 06/11/18 05:55 Dose: 1 tab Chlorhexidine Gluconate (Peridex 0.12% Oral Kit) 15 ml OROPHARYNG BID@0800, 2000 [facility] Last Admin: 06/10/18 20:39 Dose: Not Given Dextrose (D50w Vial) 50 ml IV.PUSH UNSCH PRN PRN Reason: PER HYPOGLYCEMIA PROTOCOL Enoxaparin Sodium (Lovenox Inj) 40 mg SQ Q24H [facility] Last Admin: 06/03/18 20:29 Dose: 40 mg Flumazenil (Romazecon Inj) 0.2 mg IV.PUSH Q1M PRN PRN Reason: OVERSEDATION Glucagon (Glucagon Inj) 1 mg OTHER PRN PRN PRN Reason: for Hypoglycemia Protocol Sodium Phosphate 30 mmol/ (Sodium Chloride) 260 mls @ 42 mls/hr IV.SIG UNSCH PRN PRN Reason: For Phosphorus < 2.5 mg/dL Last Infusion: 05/27/18 14:58 Dose: Infused Aztreonam 1,000 mg/ Sodium (Chloride) 100 mls @ 200 mls/hr IV.SIG Q8H [facility] Last Infusion: 06/11/18 06:15 Dose: Infused Insulin Human Regular (Novolin R Correctional Sugar Inj) 0 units SQ Q6HR [facility]; Protocol Last Admin: 06/11/18 05:55 Dose: Not Given Lactulose (Lactulose Liq) 30 ml PO DAILY PRN PRN Reason: SEVERE CONSITIPATION Levetiracetam (Keppra) 500 mg NG/OG BID [facility] Methylphenidate HCl (Ritalin) 5 mg NG/OG BID@0700,1200 [facility] Miscellaneous (Pill Splitter) 1 each OTHER UNSCH PRN PRN Reason: PILL SPLITTER Ondansetron HCl (Zofran Inj) 4 mg IV.PUSH Q6H PRN PRN Reason: NAUSEA OR VOMITING Senna/Docusate Sodium (Anupama-Colace) 1 tab PO BID [facility] Last Admin: 06/10/18 20:39 Dose: 1 tab Sennosides (Senokot) 17.2 mg PO Q12H PRN PRN Reason: Moderate Constipation Sodium Chloride (Ns Flush) 2 ml IV.FLUSH BID [facility] Last Admin: 06/10/18 20:39 Dose: 2 ml Sodium Chloride (Ns Flush) 2 ml IV.FLUSH PRN PRN PRN Reason: FLUSH AFTER USING IV ACCESS Last Admin: 06/01/18 00:10 Dose: 2 ml Sterile Water (Free Water) 250 ml G-TUBE Q6HR [facility] Last Admin: 06/11/18 05:55 Dose: 250 ml Thiamine HCl (Vitamin B1) 100 mg PO DAILY [facility] Last Admin: 06/10/18 09:09 Dose: 100 mg Allergies/Adverse Reactions: Allergies Allergy/AdvReac Type Severity Reaction Status Date / Time Unable to Assess Allergy Unknown Unconscious Verified 05/25/18 17:12 Physical Exam Vital signs: Vital Signs 06/10/18 08:00 06/10/18 08:04 06/10/18 11:24 Temperature 98.2 F Pulse Rate 107 H 106 H 99 H Respiratory Rate 24 18 18 Blood Pressure 123/69 Pulse Oximetry 97 96 06/10/18 12:00 06/10/18 15:47 06/10/18 16:00 Temperature 98.3 F 98.8 F Pulse Rate 117 H 117 H 114 H Respiratory Rate 22 22 24 Blood Pressure 113/57 L 130/72 Pulse Oximetry 99 99 99 06/10/18 19:58 06/10/18 20:00 06/10/18 23:13 Temperature 98.8 F Pulse Rate 114 H 110 H 110 H Respiratory Rate 24 18 Blood Pressure 126/65 Pulse Oximetry 97 06/11/18 00:00 06/11/18 00:08 06/11/18 04:00 Temperature 98.6 F 98.5 F Pulse Rate 114 H 100 H 89 Respiratory Rate 18 17 18 Blood Pressure 120/54 L 109/72 Pulse Oximetry 98 98 97 06/11/18 04:12 Temperature Pulse Rate 101 H Respiratory Rate 16 Blood Pressure Pulse Oximetry 98 Intake & Output 06/10/18 06/11/18 06/11/18 18:59 06:59 18:59 Intake Total 207.5 / 207.5 900 / 900 Output Total 800 / 800 400 / 400 Balance -592.5 / -592.5 500 / 500 Weight 53.3 kg Intake: IV 207.5 / 207.5 200 / 200 Azactam Inj 1,000 MG In NS Inj 100 / 100 200 / 200 100 ML @ 200 mls/hr IV.SIG Q8H [facility] Rx#:[id number] Keppra Inj 750 MG In NS Inj 100 107.5 / 107.5 ML @ 430 mls/hr IV.SIG Q12H [facility] Rx#:[id number] Tube Feeding 300 / 300 Water Bolus Amount 400 / 400 Output: Urine 400 / 400 Urine Amount (Catheter) 800 / 800 Condom 800 / 800 Other: # Voids 2 Date of Last Bowel Movement 06/10/18 06/09/18 # Bowel Movements 1 # Incontinent Bowel Movements 1 Narrative: no change still not greatly interactive - Urinary Catheter Management Indwelling Urethral Catheter Cath placed during this visit: yes, but has since been removed by the nurse Reason for continuing: Not indwelling catheter Insertion date: 05/25/18 Insertion time: 15:00 Removal date: 05/26/18 Removal time: 12:00 Straight Cath placed during this visit: yes Reason for continuing: Not indwelling catheter Insertion date: 06/05/18 Insertion time: 00:20 Condom Cath placed during this visit: no Reason for continuing: Not indwelling catheter Objective Laboratory Results - last 24 hr 06/10/18 06/10/18 06/11/18 12:25 16:48 00:33 POC Glucose 94 100 99 06/11/18 05:55 POC Glucose 100 Microbiology 06/05/18 17:40 Aerobic Blood Culture - Final Blood - Peripheral No growth in 5 days Anaerobic Blood Culture - Final No growth in 5 days 06/05/18 17:46 Aerobic Blood Culture - Final Blood - Peripheral No growth in 5 days Anaerobic Blood Culture - Final No growth in 5 days Review/Management - Review/Management Plan: imp mri and eeg neg on keppra hold all sedatives could be prolonged postictal will fu saturday see if awakens over next few days no apparent reason why he would not - 06/02/18 much better should do well keppra off vent when able 06/05/18 no sz he should bounce back neurowise to prior level of functioning keppra stable neuro 06/07/18 no sz on keppra 1000 bid eeg neg check abg for some inc ms change may need peg? i tai sone no etoh and needs to take his meds lives w daughter she should see that he does 06/08/18 have PT oob recheck eeg lower keppra to 750 bid should be making progress ? chest PT getting dehydrated na 150 06/09/18 a little better today try sinemet see if helps tremor and motor system etoher i tai son will fu eeg ok 06/10/18 no change i would think he should bounce back to prior functioning will need peg short term however maybe a month or two 06/11/18 try ritalin will tai nurse
[2018-06-11] MEDS ORDERED: levETIRAcetam 500 MG Tablet NG/OG SCH (09:00)
[2018-06-11] MEDS: Chlorhexidine 0.12% Oral Kit 15 ML UDC OROPHARYNG SCH (09:54)
[2018-06-11] MEDS: Senna/Docusate Sodium 8.6/50 MG Tablet PO SCH (09:54)
--- NOTE | 2018-06-11 10:29 | P.PNIM ---
Subjective Interval history: Continue confusion, less agitated. Currently in soft restraints. Not able to communicate well with me. Physical Exam Vital signs: Vital Signs 06/10/18 11:24 06/10/18 12:00 06/10/18 15:47 Temperature 98.3 F Pulse Rate 99 H 117 H 117 H Respiratory Rate 18 22 22 Blood Pressure 113/57 L Pulse Oximetry 99 99 06/10/18 16:00 06/10/18 19:58 06/10/18 20:00 Temperature 98.8 F 98.8 F Pulse Rate 114 H 114 H 110 H Respiratory Rate 24 24 18 Blood Pressure 130/72 126/65 Pulse Oximetry 99 97 06/10/18 23:13 06/11/18 00:00 06/11/18 00:08 Temperature 98.6 F Pulse Rate 110 H 114 H 100 H Respiratory Rate 18 17 Blood Pressure 120/54 L Pulse Oximetry 98 98 06/11/18 04:00 06/11/18 04:12 06/11/18 08:00 Temperature 98.5 F 98.7 F Pulse Rate 89 101 H 116 H Respiratory Rate 18 16 20 Blood Pressure 109/72 111/77 Pulse Oximetry 97 98 98 06/11/18 09:03 Temperature Pulse Rate 114 H Respiratory Rate 22 Blood Pressure Pulse Oximetry 98 Intake & Output 06/10/18 06/11/18 06/11/18 18:59 06:59 18:59 Intake Total 207.5 / 207.5 900 / 900 Output Total 800 / 800 400 / 400 Balance -592.5 / -592.5 500 / 500 Weight 53.3 kg Intake: IV 207.5 / 207.5 200 / 200 Azactam Inj 1,000 MG In NS Inj 100 / 100 200 / 200 100 ML @ 200 mls/hr IV.SIG Q8H [facility] Rx#:[id number] Keppra Inj 750 MG In NS Inj 100 107.5 / 107.5 ML @ 430 mls/hr IV.SIG Q12H [facility] Rx#:[id number] Tube Feeding 300 / 300 Water Bolus Amount 400 / 400 Output: Urine 400 / 400 Urine Amount (Catheter) 800 / 800 Condom 800 / 800 Other: # Voids 2 Date of Last Bowel Movement 06/10/18 06/09/18 # Bowel Movements 1 # Incontinent Bowel Movements 1 Narrative: GENERAL: This is a well-nourished, well-developed patient, in no apparent distress. CARDIOVASCULAR: Regular rate and rhythm RESPIRATORY: Diminished breath sounds bases GASTROINTESTINAL: Abdomen soft, non-tender, nondistended. Normal active bowel sounds MUSCULOSKELETAL: Extremities without clubbing, cyanosis, or edema. NEURO: Confused, less agitated, not interactive, bilateral restraints. - Urinary Catheter Management Indwelling Urethral Catheter Cath placed during this visit: yes, but has since been removed by the nurse Reason for continuing: Not indwelling catheter Insertion date: 05/25/18 Insertion time: 15:00 Removal date: 05/26/18 Removal time: 12:00 Straight Cath placed during this visit: yes Reason for continuing: Not indwelling catheter Insertion date: 06/05/18 Insertion time: 00:20 Condom Cath placed during this visit: no Reason for continuing: Not indwelling catheter Results - Labs CBC & Chem 7: 06/10/18 06:18 06/10/18 06:18 Laboratory Results - last 24 hr 06/10/18 06/10/18 06/11/18 12:25 16:48 00:33 POC Glucose 94 100 99 06/11/18 05:55 POC Glucose 100 Microbiology 06/05/18 17:40 Blood - Peripheral Aerobic Blood Culture - Final No growth in 5 days 06/05/18 17:40 Blood - Peripheral Anaerobic Blood Culture - Final No growth in 5 days 06/05/18 17:46 Blood - Peripheral Aerobic Blood Culture - Final No growth in 5 days 06/05/18 17:46 Blood - Peripheral Anaerobic Blood Culture - Final No growth in 5 days Assessment and Plan - Plan Alcohol dependence Alcohol withdrawal Seizure disorder with active seizures- improving. Medication noncompliance Acute combined toxic and metabolic encephalopathy-persist. Frequent neurochecks with continued confusion which persists. Patient is less agitated. Continue with Keppra per Neuro EEG 05/26: negative for ictal activity. generalized slowing. Repeat EEG ordered on 05/29 in view of tremors noted in right upper extremity. Appreciate neurology consultation and recommendations. On thiamine and multivitamins Head CT negative for acute disease 05/25. MRI brain: Remote left temporal infarct, atrophy 05/27 Repeat ammonia level not elevated. Neurology recommended starting trial of Adderall Acute hypoxic and hypercarbic respiratory failure Head of bed elevated Continue with oxygen support and keep sats >92% Bronchodilators, Severe dysphasia and high risk for aspirationcontinue n.p.o. and speech therapy if does not improve we will need to consider PEG tube. urinary retention - no indication for tubbs. straight cath q6h. Monitor renal function. I/O's, electrolytes replacement per protocol Hypernatremia Change Free water increased to 250 every 6 hour due to hypernatremia Alcoholic cirrhosis Acute protein calorie malnutritionsevere Severe hypokalemia- resolving.Replete today Acute intravascular volume depletion- resolving. Hyponatremia- resolved and now with hypernatremia Dehydration- resolving. ICU electrolyte protocol NPO by speech, continue tube feeds - Jevity 1.5 with goal rate 60ml/hr Failed swallow evaluation yesterday with high aspiration risk Repeat swallow evaluation today May need PEG tube if does not improve. Healthcare acquired pneumonia UTI noted. Urine cx: Kleb pneumonia on 05/29, Continue Aztreonam and Vanco per ID, day number #6 06/04, Urine, Blood culture, sputum cx: NGTD ID is following. Leukocytosis trending down Anemia, chronic likely due to history of cirrhosis and chronic disease monitor CBC, s/p transfuse 2u PRBC 06/04. Hyperglycemia of critical illness -- SSI Prophylaxis: GI Prophylaxis Pepcid DVT Prophylaxis -- SCDs Lovenox held for anemia requiring blood transfusion Lines: Peripheral IVs Palliative care is following Overall poor long-term prognosis Discharge Planning: May need long-term placement.
[2018-06-11] MEDS: Methylphenidate HCl 5 MG Tablet NG/OG SCH (12:36)
--- NOTE | 2018-06-11 15:34 | P.PNID ---
Subjective Remarks: Patient is on O2 via nasal cannula. Awake, lethargic. No distress. Not communicating. Afebrile. WBC remains normal. ID consulted for fevers, pneumonia, worsening leukocytosis. This is a 72-year-old male who was brought to the emergency department after he was found to be having grand mal seizures. The patient was intubated and admitted to the intensive care unit. The patient has increased white blood cell count and fever. Past Medical History: PAST MEDICAL HISTORY: Multiple strokes, seizure disorder, alcoholic liver disease. Allergies/Adverse Reactions: Allergies Unable to Assess Allergy (Unknown, Verified 05/25/18 17:12) Unconscious Objective Vital Signs 06/10/18 15:47 06/10/18 16:00 06/10/18 19:58 Temperature 98.8 F Pulse Rate 117 H 114 H 114 H Respiratory Rate 22 24 24 Blood Pressure 130/72 Pulse Oximetry 99 99 06/10/18 20:00 06/10/18 23:13 06/11/18 00:00 Temperature 98.8 F 98.6 F Pulse Rate 110 H 110 H 114 H Respiratory Rate 18 18 Blood Pressure 126/65 120/54 L Pulse Oximetry 97 98 06/11/18 00:08 06/11/18 04:00 06/11/18 04:12 Temperature 98.5 F Pulse Rate 100 H 89 101 H Respiratory Rate 17 18 16 Blood Pressure 109/72 Pulse Oximetry 98 97 98 06/11/18 08:00 06/11/18 09:03 06/11/18 12:00 Temperature 98.7 F 97.9 F Pulse Rate 116 H 114 H 110 H Respiratory Rate 20 22 20 Blood Pressure 111/77 113/56 L Pulse Oximetry 98 98 97 06/11/18 12:19 06/11/18 15:26 06/11/18 15:27 Temperature Pulse Rate 114 H 114 H Respiratory Rate 12 18 Blood Pressure Pulse Oximetry 93 L 93 L Intake & Output 06/10/18 06/11/18 06/11/18 18:59 06:59 18:59 Intake Total 207.5 / 207.5 900 / 900 Output Total 800 / 800 400 / 400 Balance -592.5 / -592.5 500 / 500 Weight 53.3 kg Intake: IV 207.5 / 207.5 200 / 200 Azactam Inj 1,000 MG In NS Inj 100 / 100 200 / 200 100 ML @ 200 mls/hr IV.SIG Q8H [facility] Rx#:[id number] Keppra Inj 750 MG In NS Inj 100 107.5 / 107.5 ML @ 430 mls/hr IV.SIG Q12H [facility] Rx#:[id number] Tube Feeding 300 / 300 Water Bolus Amount 400 / 400 Output: Urine 400 / 400 Urine Amount (Catheter) 800 / 800 Condom 800 / 800 Other: # Voids 2 Date of Last Bowel Movement 06/10/18 06/09/18 06/11/18 # Bowel Movements 1 # Incontinent Bowel Movements 1 06/05/18 17:40 Blood - Peripheral Aerobic Blood Culture - Final No growth in 5 days 06/05/18 17:40 Blood - Peripheral Anaerobic Blood Culture - Final No growth in 5 days 06/05/18 17:46 Blood - Peripheral Aerobic Blood Culture - Final No growth in 5 days 06/05/18 17:46 Blood - Peripheral Anaerobic Blood Culture - Final No growth in 5 days 06/04/18 09:50 Blood - Peripheral Aerobic Blood Culture - Final No growth in 5 days 06/04/18 09:50 Blood - Peripheral Anaerobic Blood Culture - Final No growth in 5 days Lab - Hematology Results 06/10/18 06:18 WBC 8.0 RBC 2.89 L Hgb 9.2 L Hct 27.3 L MCV 94.6 MCH 31.8 MCHC 33.6 RDW 18.3 H Plt Count 880 H MPV 7.4 Neut % (Auto) 61.6 Lymph % (Auto) 23.2 Sauk % (Auto) 12.4 H Eos % (Auto) 1.0 Baso % (Auto) 1.8 Neut # (Auto) 4.9 Lymph # (Auto) 1.9 Sauk # (Auto) 1.0 H Eos # (Auto) 0.1 Baso # (Auto) 0.1 WBC Differential . Differential Comment Auto diff final Lab - Chemistry Results 06/09/18 06/09/18 06/10/18 16:27 19:11 00:56 Sodium Potassium Chloride Carbon Dioxide Anion Gap BUN Creatinine Estimated GFR POC Glucose 154 H 109 139 H Random Glucose Calcium Ammonia 06/10/18 06/10/18 06/10/18 06:09 06:18 06:18 Sodium 150 H Potassium 4.3 Chloride 117 H Carbon Dioxide 25.7 Anion Gap 7 BUN 17 Creatinine 0.55 L Estimated GFR Greater than 89 POC Glucose 85 Random Glucose 83 Calcium 8.5 Ammonia 26 06/10/18 06/10/18 06/11/18 12:25 16:48 00:33 Sodium Potassium Chloride Carbon Dioxide Anion Gap BUN Creatinine Estimated GFR POC Glucose 94 100 99 Random Glucose Calcium Ammonia 06/11/18 06/11/18 05:55 12:33 Sodium Potassium Chloride Carbon Dioxide Anion Gap BUN Creatinine Estimated GFR POC Glucose 100 106 Random Glucose Calcium Ammonia Imaging: ITS Impressions Head CT 05/25/18 15:22 CONCLUSION: Chronic small vessel ischemic and atrophic changes. Head MRI 05/27/18 00:00 CONCLUSION: 1. Atrophy, white matter disease and remote left temporal infarct with encephalomalacia. Abdomen X-Ray 06/08/18 00:00 CONCLUSION: Nasogastric tube tip in the distal stomach. Chest X-Ray 06/10/18 00:00 CONCLUSION: 1. Adequate placement of nasogastric tube. 2. Left basilar density and small pleural effusion. Physical Exam: GENERAL: Awake. Lethargic. HEENT: Head is atraumatic. Bitemporal wasting. Extraocular movements appear grossly intact. No icterus. NECK: Supple without adenopathy. LUNGS: Basilar rhonchi bilateral. HEART: Regular S1 and S2. No murmurs heard. ABDOMEN: Bowel sounds present. Soft, no tenderness appreciated. EXTREMITIES: No clubbing or cyanosis. Swelling at the right upper extremity. SKIN: No diffuse rash. NEUROLOGIC: Unable to fully assess. Moves all extremities. PSYCHIATRIC: Unable to assess. Assessment and Plan - Plan IMPRESSION: 1. Pneumonia, aspiration. The patient is status post seizure. Now getting tube feeds. Could be having ongoing aspiration. 2. Leukocytosis. White blood cell count down to normal. 3. Acute respiratory failure. Extubated. 4. Urinary tract infection with Klebsiella. Treated. 5. Seizure disorder. RECOMMENDATIONS: 1. Continue aztreonam. 2. Monitor temperature. 3. Monitor clinical status.
[2018-06-11] MEDS ORDERED: levETIRAcetam 250 MG Tablet PO SCH (21:00)
--- NOTE | 2018-06-12 02:18 | XR ---
EXAM DATE: 06/12/2018 2:14 AM EDT AGE/SEX: 72 years / Male INDICATIONS: Shortness of breath. CLINICAL DATA: This is the patient's subsequent encounter. Patient reports that signs and symptoms h ave been present for 1 week and indicates a pain score of Nonresponsive. MEDICAL/SURGICAL HISTORY: Non-responsive. Non-responsive. COMPARISON: [facility] – [place], CHEST 1V SINGLE AP, 06/10/2018. . FINDINGS: The heart size is normal. There is hazy density identified in the bases bilaterally being more promin ent on the left. There is silhouetting of the lateral aspect of the right hemidiaphragm. The upper elizabeth ngs are relatively clear. CONCLUSION: Bibasilar areas of suspected atelectasis, consolidation or possible effusions. Electronically signed by: Brenden Hayes MD 06/12/2018 2:17 AM EDT
[2018-06-12] MEDS: Chlorhexidine 0.12% Oral Kit 15 ML UDC OROPHARYNG SCH ×2 (05:37→11:48)
[2018-06-12] MEDS: Insulin NovoLIN Regular Correctional Sugar Inj SQ SCH ×4 (05:37→18:00)
[2018-06-12] MEDS: Oral Hygiene Kit OROPHARYNG SCH ×3 (05:40→19:52)
[2018-06-12] MEDS: Senna/Docusate Sodium 8.6/50 MG Tablet PO SCH ×2 (05:56→11:49)
[2018-06-12] MEDS: Methylphenidate HCl 5 MG Tablet NG/OG SCH (06:13)
--- NOTE | 2018-06-12 08:31 | P.PNNEU ---
Subjective Subjective Comments: No acute events reported No headache No chest pain No dyspnea Active Medications: Active Medications Acetaminophen (Tylenol Liq) 650 mg PO Q6H PRN PRN Reason: SEE DOSE INSTRUCTIONS Last Admin: 06/05/18 04:47 Dose: 650 mg Al Hydroxide/Mg Hydroxide (Milk Of Magnesia Liq) 30 ml PO Q12H PRN PRN Reason: Mild Constipation Albuterol (Duoneb Neb (Prn)) 1 ampul NEB Q2HR NEB PRN PRN Reason: WHEEZING Bisacodyl (Dulcolax Supp) 10 mg RECTAL DAILY PRN PRN Reason: SEVERE CONSITIPATION Chlorhexidine Gluconate (Peridex 0.12% Oral Kit) 15 ml OROPHARYNG BID@0800, 2000 [facility] Last Admin: 06/12/18 05:37 Dose: Not Given Dextrose (D50w Vial) 50 ml IV.PUSH UNSCH PRN PRN Reason: PER HYPOGLYCEMIA PROTOCOL Enoxaparin Sodium (Lovenox Inj) 40 mg SQ Q24H [facility] Last Admin: 06/03/18 20:29 Dose: 40 mg Flumazenil (Romazecon Inj) 0.2 mg IV.PUSH Q1M PRN PRN Reason: OVERSEDATION Glucagon (Glucagon Inj) 1 mg OTHER PRN PRN PRN Reason: for Hypoglycemia Protocol Sodium Phosphate 30 mmol/ (Sodium Chloride) 260 mls @ 42 mls/hr IV.SIG UNSCH PRN PRN Reason: For Phosphorus < 2.5 mg/dL Last Infusion: 05/27/18 14:58 Dose: Infused Aztreonam 1,000 mg/ Sodium (Chloride) 100 mls @ 200 mls/hr IV.SIG Q8H [facility] Last Infusion: 06/12/18 05:48 Dose: Infused Insulin Human Regular (Novolin R Correctional Sugar Inj) 0 units SQ Q6HR [facility]; Protocol Last Admin: 06/12/18 05:57 Dose: Not Given Lactulose (Lactulose Liq) 30 ml PO DAILY PRN PRN Reason: SEVERE CONSITIPATION Levetiracetam (Keppra) 250 mg PO BID [facility] Last Admin: 06/11/18 21:38 Dose: 250 mg Miscellaneous (Pill Splitter) 1 each OTHER UNSCH PRN PRN Reason: PILL SPLITTER Ondansetron HCl (Zofran Inj) 4 mg IV.PUSH Q6H PRN PRN Reason: NAUSEA OR VOMITING Senna/Docusate Sodium (Anupama-Colace) 1 tab PO BID [facility] Last Admin: 06/12/18 05:56 Dose: Not Given Sennosides (Senokot) 17.2 mg PO Q12H PRN PRN Reason: Moderate Constipation Sodium Chloride (Ns Flush) 2 ml IV.FLUSH BID [facility] Last Admin: 06/11/18 21:52 Dose: 2 ml Sodium Chloride (Ns Flush) 2 ml IV.FLUSH PRN PRN PRN Reason: FLUSH AFTER USING IV ACCESS Last Admin: 06/01/18 00:10 Dose: 2 ml Sterile Water (Free Water) 250 ml G-TUBE Q6HR [facility] Last Admin: 06/12/18 05:57 Dose: Not Given Thiamine HCl (Vitamin B1) 100 mg PO DAILY [facility] Last Admin: 06/11/18 09:54 Dose: 100 mg Allergies/Adverse Reactions: Allergies Allergy/AdvReac Type Severity Reaction Status Date / Time Unable to Assess Allergy Unknown Unconscious Verified 05/25/18 17:12 Physical Exam Vital signs: Vital Signs 06/11/18 09:03 06/11/18 12:00 06/11/18 12:19 Temperature 97.9 F Pulse Rate 114 H 110 H 114 H Respiratory Rate 22 20 12 Blood Pressure 113/56 L Pulse Oximetry 98 97 93 L 06/11/18 15:26 06/11/18 15:27 06/11/18 16:00 Temperature 98.7 F Pulse Rate 114 H 107 H Respiratory Rate 18 Blood Pressure 106/63 Pulse Oximetry 93 L 98 06/11/18 20:00 06/11/18 20:03 06/11/18 23:53 Temperature 98.1 F Pulse Rate 111 H 108 H 110 H Respiratory Rate 18 Blood Pressure 114/62 Pulse Oximetry 95 06/12/18 00:00 06/12/18 01:30 06/12/18 03:00 Temperature 97.6 F Pulse Rate 117 H Respiratory Rate 20 Blood Pressure 116/64 Pulse Oximetry 93 L 93 L 97 06/12/18 04:00 06/12/18 04:19 06/12/18 04:20 Temperature 98 F Pulse Rate 109 H Respiratory Rate 24 20 Blood Pressure 112/64 Pulse Oximetry 92 L 95 95 06/12/18 05:52 06/12/18 06:15 06/12/18 06:34 Temperature Pulse Rate Respiratory Rate Blood Pressure Pulse Oximetry 92 L 89 L 95 Intake & Output 06/11/18 06/12/18 06/12/18 18:59 06:59 18:59 Intake Total 100 / 100 200 / 200 Output Total 0 / 0 Balance 100 / 100 200 / 200 Weight 53.1 kg Intake: IV 100 / 100 200 / 200 Azactam Inj 1,000 MG In NS Inj 100 / 100 200 / 200 100 ML @ 200 mls/hr IV.SIG Q8H [facility] Rx#:[id number] Oral 0 / 0 Output: Urine/Stool Mix 0 / 0 Other: # Voids 3 Date of Last Bowel Movement 06/11/18 06/11/18 Narrative: still lethargic - Urinary Catheter Management Indwelling Urethral Catheter Cath placed during this visit: yes, but has since been removed by the nurse Reason for continuing: Not indwelling catheter Insertion date: 05/25/18 Insertion time: 15:00 Removal date: 05/26/18 Removal time: 12:00 Straight Cath placed during this visit: yes Reason for continuing: Not indwelling catheter Insertion date: 06/05/18 Insertion time: 00:20 Condom Cath placed during this visit: no Reason for continuing: Not indwelling catheter Objective Laboratory Results - last 24 hr 06/11/18 06/12/18 12:33 05:28 POC Glucose 106 101 Review/Management - Review/Management Plan: imp mri and eeg neg on keppra hold all sedatives could be prolonged postictal will fu saturday see if awakens over next few days no apparent reason why he would not - 06/02/18 much better should do well keppra off vent when able 06/05/18 no sz he should bounce back neurowise to prior level of functioning keppra stable neuro 06/07/18 no sz on keppra 1000 bid eeg neg check abg for some inc ms change may need peg? i dw sone no etoh and needs to take his meds lives w daughter she should see that he does 06/08/18 have PT oob recheck eeg lower keppra to 750 bid should be making progress ? chest PT getting dehydrated na 150 06/09/18 a little better today try sinemet see if helps tremor and motor system etoher i tai son will fu eeg ok 06/10/18 no change i would think he should bounce back to prior functioning will need peg short term however maybe a month or two 06/11/18 try ritalin will dw nurse still lethargic will inc ritalin to 10mg i lowered the keppra to 250 bid
--- NOTE | 2018-06-12 09:08 | P.PNIM ---
Subjective Interval history: Patient with continued secretions and pulled out his NG tube and likely reaspirated. Continues to be confused and not interactive. Physical Exam Vital signs: Vital Signs 06/11/18 12:00 06/11/18 12:19 06/11/18 15:26 Temperature 97.9 F Pulse Rate 110 H 114 H Respiratory Rate 20 12 Blood Pressure 113/56 L Pulse Oximetry 97 93 L 93 L 06/11/18 15:27 06/11/18 16:00 06/11/18 20:00 Temperature 98.7 F 98.1 F Pulse Rate 114 H 107 H 111 H Respiratory Rate 18 18 Blood Pressure 106/63 114/62 Pulse Oximetry 98 95 06/11/18 20:03 06/11/18 23:53 06/12/18 00:00 Temperature 97.6 F Pulse Rate 108 H 110 H 117 H Respiratory Rate 20 Blood Pressure 116/64 Pulse Oximetry 93 L 06/12/18 01:30 06/12/18 03:00 06/12/18 04:00 Temperature 98 F Pulse Rate 109 H Respiratory Rate 24 Blood Pressure 112/64 Pulse Oximetry 93 L 97 92 L 06/12/18 04:19 06/12/18 04:20 06/12/18 05:52 Temperature Pulse Rate Respiratory Rate 20 Blood Pressure Pulse Oximetry 95 95 92 L 06/12/18 06:15 06/12/18 06:34 06/12/18 08:59 Temperature Pulse Rate Respiratory Rate Blood Pressure Pulse Oximetry 89 L 95 90 L Intake & Output 06/11/18 06/12/18 06/12/18 18:59 06:59 18:59 Intake Total 100 / 100 200 / 200 Output Total 0 / 0 Balance 100 / 100 200 / 200 Weight 53.1 kg Intake: IV 100 / 100 200 / 200 Azactam Inj 1,000 MG In NS Inj 100 / 100 200 / 200 100 ML @ 200 mls/hr IV.SIG Q8H ALPHONSE Rx#:[id number] Oral 0 / 0 Output: Urine/Stool Mix 0 / 0 Other: # Voids 3 Date of Last Bowel Movement 06/11/18 06/11/18 Narrative: GENERAL: This is a well-nourished, well-developed patient, in no apparent distress. CARDIOVASCULAR: Regular rate and rhythm RESPIRATORY: Bilateral rhonchi GASTROINTESTINAL: Abdomen soft, non-tender, nondistended. Normal active bowel sounds MUSCULOSKELETAL: Extremities without clubbing, cyanosis, or edema. NEURO: Confused, not alert and oriented and does not follow simple directions. Bilateral arms in restraints. - Urinary Catheter Management Indwelling Urethral Catheter Cath placed during this visit: yes, but has since been removed by the nurse Reason for continuing: Not indwelling catheter Insertion date: 05/25/18 Insertion time: 15:00 Removal date: 05/26/18 Removal time: 12:00 Straight Cath placed during this visit: yes Reason for continuing: Not indwelling catheter Insertion date: 06/05/18 Insertion time: 00:20 Condom Cath placed during this visit: no Reason for continuing: Not indwelling catheter Results - Labs CBC & Chem 7: 06/10/18 06:18 06/10/18 06:18 Laboratory Results - last 24 hr 06/11/18 06/12/18 12:33 05:28 POC Glucose 106 101 - Imaging Impressions Chest X-Ray 06/12/18 01:45 CONCLUSION: Bibasilar areas of suspected atelectasis, consolidation or possible effusions. Assessment and Plan - Plan Alcohol dependence Alcohol withdrawal Seizure disorder with active seizures- improving. Medication noncompliance Acute combined toxic and metabolic encephalopathy-persist and not improving. Frequent neurochecks with continued confusion which persists. Patient is less agitated. Continue with Keppra per Neuro EEG 05/26: negative for ictal activity. generalized slowing. Repeat EEG ordered on 05/29 in view of tremors noted in right upper extremity. Appreciate neurology consultation and recommendations. On thiamine and multivitamins Head CT negative for acute disease 05/25. MRI brain: Remote left temporal infarct, atrophy 05/27 Repeat ammonia level not elevated. Neurology recommended starting trial of Adderall which has not improved neurological status. Poor prognosis. Acute hypoxic and hypercarbic respiratory failure Head of bed elevated Continue with oxygen support and keep sats >92% Bronchodilators, Severe dysphasia and high risk for aspirationcontinue n.p.o. and speech therapy ; patient has not improved and will consult GI for PEG tube today. Patient pulled out NG tube overnight and likely reaspirated. urinary retention - no indication for tubbs. straight cath q6h. Monitor renal function. I/O's, electrolytes replacement per protocol Hypernatremia Change Free water increased to 250 every 6 hour due to hypernatremia Alcoholic cirrhosis Acute protein calorie malnutritionsevere Severe hypokalemia- resolving.Replete today Acute intravascular volume depletion- resolving. Hyponatremia- resolved and now with hypernatremia Dehydration- resolving. ICU electrolyte protocol NPO by speech, continue tube feeds - Jevity 1.5 with goal rate 60ml/hr once G- tube placed. Failed swallow evaluation yesterday with high aspiration risk Repeat swallow evaluation today May need PEG tube if does not improve. Healthcare acquired pneumonia UTI noted. Urine cx: Kleb pneumonia on 05/29, Continue Aztreonam and Vanco per ID, day number #7 06/04, Urine, Blood culture, sputum cx: NGTD ID is following. Leukocytosis trending down Anemia, chronic likely due to history of cirrhosis and chronic disease monitor CBC, s/p transfuse 2u PRBC 06/04. Hyperglycemia of critical illness -- SSI Prophylaxis: GI Prophylaxis Pepcid DVT Prophylaxis -- SCDs Lovenox held for anemia requiring blood transfusion Lines: Peripheral IVs Palliative care is following Overall poor long-term prognosis Discharge Planning: May need long-term placement.
--- NOTE | 2018-06-12 11:46 | P.CONGI ---
History of Present Illness Consult date: 06/12/18 Consult reason: ? PEG tube placement Chief complaint: unresponsive,breakthrough seizures History of Present Illness: This is a 72 yo M with history of cirrhosis secondary to ETOH abuse who was brought into [facility] on 05/25 for ongoing active seizures, pt required mechanical ventilation, has since been extubated and is currently on 8L of O2 via simple mask on a medical floor. since extubation pt has remained confused and neurology has been following, noted to have poor prognosis. Our service has been consulted to evaluate pt for possible PEG tube placement. Pt was previously receiving nutrition through NG tube but he has pulled this out and currently is NPO. He has been seen by speech therapy who states pt has severe oropharyngeal dysphagia with poor secretion management and is at a high risk for aspiration. Son, Carlos Alberto is at bedside during exam, he is the patient's medical decision maker. <Princess Zacarias - Last Filed: 06/12/18 11:37> Review of Systems unobtainable due to mental status <Princess Zacarias - Last Filed: 06/12/18 11:37> [facility] - History History Provided By: Family Member (family unable to recall fam hx), Medical Record - Medical History Medical History: Medical History (Last Reviewed 06/11/18 @ 09:37 by Jessica Gupta) Alcohol abuse Seizure Surgical history unknown - Surgical History Surgical History: Surgical History (Last Reviewed 06/11/18 @ 09:37 by Jessica Gupta) History of craniotomy - Family History Family History: Family History (Last Updated 05/27/18 @ 15:40 by PETER Ordonez) Other Unknown family medical history - Tobacco History Second Hand Smoke Exposure: No Tobacco Use In Past 30 Days: No Smoking Status: Unknown if ever smoked - Alcohol History How Often Do You Have a Drink Containing Alcohol: 4 or more times a week - Substance Use History Substance History: Active Abuse, Past History (50y) - Substance Use Type Alcohol Type: wine, sometimes hard liquor Status: Active Route Used: By Mouth Comment: up to 1 gallon wine daily - Travel History Recent Travel in the [place] Within the Last 8 Weeks: No Recent Travel Out of the Country Within the Last 8 Weeks: No - Immunization History Tetanus Immunization: Unable to Assess Hx Influenza Vaccine This Season: Unable to Assess <Princess Zacarias - Last Filed: 06/12/18 11:37> - Medical History Medical History: Medical History (Last Reviewed 06/11/18 @ 09:37 by Jessica Gupta) Alcohol abuse Seizure Surgical history unknown - Surgical History Surgical History: Surgical History (Last Reviewed 06/11/18 @ 09:37 by Jessica Gupta) History of craniotomy - Family History Family History: Family History (Last Updated 05/27/18 @ 15:40 by PETER Ordonez) Other Unknown family medical history <Mckenna Cedillo - Last Filed: 06/12/18 12:19> Medications and Allergies Active Medications: Active Medications Acetaminophen (Tylenol Liq) 650 mg PO Q6H PRN PRN Reason: SEE DOSE INSTRUCTIONS Last Admin: 06/05/18 04:47 Dose: 650 mg Al Hydroxide/Mg Hydroxide (Milk Of Magnesia Liq) 30 ml PO Q12H PRN PRN Reason: Mild Constipation Albuterol (Duoneb Neb (Prn)) 1 ampul NEB Q2HR NEB PRN PRN Reason: WHEEZING Bisacodyl (Dulcolax Supp) 10 mg RECTAL DAILY PRN PRN Reason: SEVERE CONSITIPATION Chlorhexidine Gluconate (Peridex 0.12% Oral Kit) 15 ml OROPHARYNG BID@0800, 2000 [facility] Last Admin: 06/12/18 05:37 Dose: Not Given Dextrose (D50w Vial) 50 ml IV.PUSH UNSCH PRN PRN Reason: PER HYPOGLYCEMIA PROTOCOL Enoxaparin Sodium (Lovenox Inj) 40 mg SQ Q24H [facility] Last Admin: 06/03/18 20:29 Dose: 40 mg Flumazenil (Romazecon Inj) 0.2 mg IV.PUSH Q1M PRN PRN Reason: OVERSEDATION Glucagon (Glucagon Inj) 1 mg OTHER PRN PRN PRN Reason: for Hypoglycemia Protocol Sodium Phosphate 30 mmol/ (Sodium Chloride) 260 mls @ 42 mls/hr IV.SIG UNSCH PRN PRN Reason: For Phosphorus < 2.5 mg/dL Last Infusion: 05/27/18 14:58 Dose: Infused Aztreonam 1,000 mg/ Sodium (Chloride) 100 mls @ 200 mls/hr IV.SIG Q8H [facility] Last Admin: 06/12/18 11:22 Dose: 200 mls/hr Levetiracetam (Keppra 500 Mg/100 Ml Premix) 100 mls @ 400 mls/hr IV.SIG Q12H [facility] Insulin Human Regular (Novolin R Correctional Sugar Inj) 0 units SQ Q6HR [facility]; Protocol Last Admin: 06/12/18 05:57 Dose: Not Given Lactulose (Lactulose Liq) 30 ml PO DAILY PRN PRN Reason: SEVERE CONSITIPATION Levetiracetam (Keppra) 250 mg PO BID [facility] Last Admin: 06/11/18 21:38 Dose: 250 mg Methylphenidate HCl (Ritalin) 10 mg NG/OG BID@0700,1200 [facility] Miscellaneous (Pill Splitter) 1 each OTHER UNSCH PRN PRN Reason: PILL SPLITTER Ondansetron HCl (Zofran Inj) 4 mg IV.PUSH Q6H PRN PRN Reason: NAUSEA OR VOMITING Senna/Docusate Sodium (Anupama-Colace) 1 tab PO BID [facility] Last Admin: 06/12/18 05:56 Dose: Not Given Sennosides (Senokot) 17.2 mg PO Q12H PRN PRN Reason: Moderate Constipation Sodium Chloride (Ns Flush) 2 ml IV.FLUSH BID [facility] Last Admin: 06/11/18 21:52 Dose: 2 ml Sodium Chloride (Ns Flush) 2 ml IV.FLUSH PRN PRN PRN Reason: FLUSH AFTER USING IV ACCESS Last Admin: 06/01/18 00:10 Dose: 2 ml Sterile Water (Free Water) 250 ml G-TUBE Q6HR [facility] Last Admin: 06/12/18 05:57 Dose: Not Given Thiamine HCl (Vitamin B1) 100 mg PO DAILY [facility] Last Admin: 06/11/18 09:54 Dose: 100 mg <Princess Zacarias - Last Filed: 06/12/18 11:37> Active Medications: Active Medications Acetaminophen (Tylenol Liq) 650 mg PO Q6H PRN PRN Reason: SEE DOSE INSTRUCTIONS Last Admin: 06/05/18 04:47 Dose: 650 mg Al Hydroxide/Mg Hydroxide (Milk Of Magnesia Liq) 30 ml PO Q12H PRN PRN Reason: Mild Constipation Albuterol (Duoneb Neb (Prn)) 1 ampul NEB Q2HR NEB PRN PRN Reason: WHEEZING Bisacodyl (Dulcolax Supp) 10 mg RECTAL DAILY PRN PRN Reason: SEVERE CONSITIPATION Chlorhexidine Gluconate (Peridex 0.12% Oral Kit) 15 ml OROPHARYNG BID@0800, 2000 [facility] Last Admin: 06/12/18 11:48 Dose: 15 ml Dextrose (D50w Vial) 50 ml IV.PUSH UNSCH PRN PRN Reason: PER HYPOGLYCEMIA PROTOCOL Enoxaparin Sodium (Lovenox Inj) 40 mg SQ Q24H [facility] Last Admin: 06/03/18 20:29 Dose: 40 mg Flumazenil (Romazecon Inj) 0.2 mg IV.PUSH Q1M PRN PRN Reason: OVERSEDATION Glucagon (Glucagon Inj) 1 mg OTHER PRN PRN PRN Reason: for Hypoglycemia Protocol Sodium Phosphate 30 mmol/ (Sodium Chloride) 260 mls @ 42 mls/hr IV.SIG UNSCH PRN PRN Reason: For Phosphorus < 2.5 mg/dL Last Infusion: 05/27/18 14:58 Dose: Infused Aztreonam 1,000 mg/ Sodium (Chloride) 100 mls @ 200 mls/hr IV.SIG Q8H [facility] Last Infusion: 06/12/18 11:52 Dose: 200 mls/hr Levetiracetam 500 mg/ Sodium (Chloride) 105 mls @ 400 mls/hr IV.SIG Q12H [facility] Insulin Human Regular (Novolin R Correctional Sugar Inj) 0 units SQ Q6HR [facility]; Protocol Last Admin: 06/12/18 11:50 Dose: Not Given Lactulose (Lactulose Liq) 30 ml PO DAILY PRN PRN Reason: SEVERE CONSITIPATION Methylphenidate HCl (Ritalin) 10 mg NG/OG BID@0700,1200 [facility] Miscellaneous (Pill Splitter) 1 each OTHER UNSCH PRN PRN Reason: PILL SPLITTER Ondansetron HCl (Zofran Inj) 4 mg IV.PUSH Q6H PRN PRN Reason: NAUSEA OR VOMITING Senna/Docusate Sodium (Anupama-Colace) 1 tab PO BID [facility] Last Admin: 06/12/18 11:49 Dose: Not Given Sennosides (Senokot) 17.2 mg PO Q12H PRN PRN Reason: Moderate Constipation Sodium Chloride (Ns Flush) 2 ml IV.FLUSH BID [facility] Last Admin: 06/12/18 11:49 Dose: 2 ml Sodium Chloride (Ns Flush) 2 ml IV.FLUSH PRN PRN PRN Reason: FLUSH AFTER USING IV ACCESS Last Admin: 06/01/18 00:10 Dose: 2 ml Sterile Water (Free Water) 250 ml G-TUBE Q6HR [facility] Last Admin: 06/12/18 11:49 Dose: Not Given Thiamine HCl (Vitamin B1) 100 mg PO DAILY [facility] Last Admin: 06/12/18 11:49 Dose: Not Given <Mckenna Cedillo - Last Filed: 06/12/18 12:19> Allergies Allergy/AdvReac Type Severity Reaction Status Date / Time Unable to Assess Allergy Unknown Unconscious Verified 05/25/18 17:12 Home Medications Medication Instructions Recorded Confirmed Type Unable to Obtain Home Meds 05/25/18 05/25/18 History Exam Vital signs: Vital Signs 06/11/18 12:00 06/11/18 12:19 06/11/18 15:26 Temperature 97.9 F Pulse Rate 110 H 114 H Respiratory Rate 20 12 Blood Pressure 113/56 L Pulse Oximetry 97 93 L 93 L 06/11/18 15:27 06/11/18 16:00 06/11/18 20:00 Temperature 98.7 F 98.1 F Pulse Rate 114 H 107 H 111 H Respiratory Rate 18 18 Blood Pressure 106/63 114/62 Pulse Oximetry 98 95 06/11/18 20:03 06/11/18 23:53 06/12/18 00:00 Temperature 97.6 F Pulse Rate 108 H 110 H 117 H Respiratory Rate 20 Blood Pressure 116/64 Pulse Oximetry 93 L 06/12/18 01:30 06/12/18 03:00 06/12/18 04:00 Temperature 98 F Pulse Rate 109 H Respiratory Rate 24 Blood Pressure 112/64 Pulse Oximetry 93 L 97 92 L 06/12/18 04:19 06/12/18 04:20 06/12/18 05:52 Temperature Pulse Rate Respiratory Rate 20 Blood Pressure Pulse Oximetry 95 95 92 L 06/12/18 06:15 06/12/18 06:34 06/12/18 08:00 Temperature 96.6 F L Pulse Rate 110 H Respiratory Rate 26 H Blood Pressure 106/60 Pulse Oximetry 89 L 95 92 L 06/12/18 08:59 Temperature Pulse Rate Respiratory Rate Blood Pressure Pulse Oximetry 90 L Intake & Output 06/11/18 06/12/18 06/12/18 18:59 06:59 18:59 Intake Total 100 / 100 200 / 200 Output Total 0 / 0 Balance 100 / 100 200 / 200 Weight 53.1 kg Intake: IV 100 / 100 200 / 200 Azactam Inj 1,000 MG In NS Inj 100 / 100 200 / 200 100 ML @ 200 mls/hr IV.SIG Q8H ALPHONSE Rx#:[id number] Oral 0 / 0 Output: Urine/Stool Mix 0 / 0 Other: # Voids 3 Date of Last Bowel Movement 06/11/18 06/11/18 - Constitutional no acute distress - Routine HEENT Exam Head: Present: normocephalic, atraumatic - Routine Abdominal Exam Present: soft, normoactive bowel sounds. Absent: distended - Routine Skin Exam Present: dry, warm - Routine Neurological Exam Absent: alert <Princess Zacarias - Last Filed: 06/12/18 11:37> Vital signs: Vital Signs 06/11/18 15:26 06/11/18 15:27 06/11/18 16:00 Temperature 98.7 F Pulse Rate 114 H 107 H Respiratory Rate 18 Blood Pressure 106/63 Pulse Oximetry 93 L 98 06/11/18 20:00 06/11/18 20:03 06/11/18 23:53 Temperature 98.1 F Pulse Rate 111 H 108 H 110 H Respiratory Rate 18 Blood Pressure 114/62 Pulse Oximetry 95 06/12/18 00:00 06/12/18 01:30 06/12/18 03:00 Temperature 97.6 F Pulse Rate 117 H Respiratory Rate 20 Blood Pressure 116/64 Pulse Oximetry 93 L 93 L 97 06/12/18 04:00 06/12/18 04:19 06/12/18 04:20 Temperature 98 F Pulse Rate 109 H Respiratory Rate 24 20 Blood Pressure 112/64 Pulse Oximetry 92 L 95 95 06/12/18 05:52 06/12/18 06:15 06/12/18 06:34 Temperature Pulse Rate Respiratory Rate Blood Pressure Pulse Oximetry 92 L 89 L 95 06/12/18 08:00 06/12/18 08:59 Temperature 96.6 F L Pulse Rate 103 H Respiratory Rate 26 H Blood Pressure 106/60 Pulse Oximetry 92 L 90 L Intake & Output 06/11/18 06/12/18 06/12/18 18:59 06:59 18:59 Intake Total 100 / 100 200 / 200 Output Total 0 / 0 Balance 100 / 100 200 / 200 Weight 53.1 kg Intake: IV 100 / 100 200 / 200 Azactam Inj 1,000 MG In NS Inj 100 / 100 200 / 200 100 ML @ 200 mls/hr IV.SIG Q8H ALPHONSE Rx#:[id number] Oral 0 / 0 Output: Urine/Stool Mix 0 / 0 Other: # Voids 3 Date of Last Bowel Movement 06/11/18 06/11/18 <Mckenna Cedillo - Last Filed: 06/12/18 12:19> Results - Labs CBC & Chem 7: 06/10/18 06:18 06/10/18 06:18 Labs: Laboratory Results - last 24 hr 06/11/18 06/12/18 06/12/18 12:33 05:28 11:31 POC Glucose 106 101 83 - Imaging Impressions Chest X-Ray 06/12/18 01:45 CONCLUSION: Bibasilar areas of suspected atelectasis, consolidation or possible effusions. <Princess Zacarias - Last Filed: 06/12/18 11:37> - Labs CBC & Chem 7: 06/10/18 06:18 06/10/18 06:18 Labs: Laboratory Results - last 24 hr 06/11/18 06/12/18 06/12/18 12:33 05:28 11:31 POC Glucose 106 101 83 - Imaging Impressions Chest X-Ray 06/12/18 01:45 CONCLUSION: Bibasilar areas of suspected atelectasis, consolidation or possible effusions. <Mckenna Cedillo - Last Filed: 06/12/18 12:19> Assessment and Plan - Plan Assessment: - Dysphagia Pt brought to ER on 05/25 for ongoing active seizures, pt required mechanical ventilation, has since been extubated and is currently on 8L of O2 via simple mask on a medical floor. since extubation pt has remained confused and neurology has been following, noted to have poor prognosis. Pt was previously receiving nutrition through NG tube but he has pulled this out and currently is NPO. He has been seen by speech therapy who states pt has severe oropharyngeal dysphagia with poor secretion management and is at a high risk for aspiration. Son, Carlos Alberto is at bedside during exam, he is the patient's medical decision maker. Discussed that at this time pt is not stable to undergo anesthesia needed for PEG tube placement. Son states "well can't we just take the oxygen off so that he is no longer on it and can have the procedure". I discussed with pts son why this is not an option. Discussed with palliative care, following. - ETOH dependence- with elevated LFTs - no imaging of the liver Plan: Pt is on 8L O2 via simple mask- not stable for anesthesia Pt with ?cirrhosis- no coags have been checked so unsure of any coagulopathy Palliative care consult appreciated Hospice would be appropriate if pt does not want nasal tube feeding Will continue to follow Pt has been seen and examined by myself and Dr. Cedillo and this note is written on his behalf <Princess Zacarias - Last Filed: 06/12/18 11:37> - Plan Patient was seen and examined, agree with above note, not a good candidate for PEG tube at this time with his cirrhosis and with the respiratory status, will see what the palliative care discussion with the patient and then a final decision will be made about feeding Via Dobbhoff tube or PEG tube <Mckenna Cedillo - Last Filed: 06/12/18 12:19>
--- NOTE | 2018-06-12 13:01 | P.PNID ---
Subjective Remarks: Patient is on increased O2. On 7 L. Nasal feeding tube has been removed. Patient appears to have aspirated. Very lethargic but opens his eyes and follows command. Son at bedside. Son reports that he was more alert yesterday evening. No temperature. ID consulted for fevers, pneumonia, worsening leukocytosis. This is a 72-year-old male who was brought to the emergency department after he was found to be having grand mal seizures. The patient was intubated and admitted to the intensive care unit. The patient has increased white blood cell count and fever. Past Medical History: PAST MEDICAL HISTORY: Multiple strokes, seizure disorder, alcoholic liver disease. Allergies/Adverse Reactions: Allergies Unable to Assess Allergy (Unknown, Verified 05/25/18 17:12) Unconscious Objective Vital Signs 06/11/18 15:26 06/11/18 15:27 06/11/18 16:00 Temperature 98.7 F Pulse Rate 114 H 107 H Respiratory Rate 18 Blood Pressure 106/63 Pulse Oximetry 93 L 98 06/11/18 20:00 06/11/18 20:03 06/11/18 23:53 Temperature 98.1 F Pulse Rate 111 H 108 H 110 H Respiratory Rate 18 Blood Pressure 114/62 Pulse Oximetry 95 06/12/18 00:00 06/12/18 01:30 06/12/18 03:00 Temperature 97.6 F Pulse Rate 117 H Respiratory Rate 20 Blood Pressure 116/64 Pulse Oximetry 93 L 93 L 97 06/12/18 04:00 06/12/18 04:19 06/12/18 04:20 Temperature 98 F Pulse Rate 109 H Respiratory Rate 24 20 Blood Pressure 112/64 Pulse Oximetry 92 L 95 95 06/12/18 05:52 06/12/18 06:15 06/12/18 06:34 Temperature Pulse Rate Respiratory Rate Blood Pressure Pulse Oximetry 92 L 89 L 95 06/12/18 08:00 06/12/18 08:59 Temperature 96.6 F L Pulse Rate 103 H Respiratory Rate 16 Blood Pressure 106/60 Pulse Oximetry 92 L 90 L Intake & Output 06/11/18 06/12/18 06/12/18 18:59 06:59 18:59 Intake Total 100 / 100 200 / 200 Output Total 0 / 0 Balance 100 / 100 200 / 200 Weight 53.1 kg Intake: IV 100 / 100 200 / 200 Azactam Inj 1,000 MG In NS Inj 100 / 100 200 / 200 100 ML @ 200 mls/hr IV.SIG Q8H ALPHONSE Rx#:[id number] Oral 0 / 0 Output: Urine/Stool Mix 0 / 0 Other: # Voids 3 Date of Last Bowel Movement 06/11/18 06/11/18 06/11/18 06/05/18 17:40 Blood - Peripheral Aerobic Blood Culture - Final No growth in 5 days 06/05/18 17:40 Blood - Peripheral Anaerobic Blood Culture - Final No growth in 5 days 06/05/18 17:46 Blood - Peripheral Aerobic Blood Culture - Final No growth in 5 days 06/05/18 17:46 Blood - Peripheral Anaerobic Blood Culture - Final No growth in 5 days 06/04/18 09:50 Blood - Peripheral Aerobic Blood Culture - Final No growth in 5 days 06/04/18 09:50 Blood - Peripheral Anaerobic Blood Culture - Final No growth in 5 days Lab - Chemistry Results 06/10/18 06/11/18 06/11/18 16:48 00:33 05:55 POC Glucose 100 99 100 06/11/18 06/12/18 06/12/18 12:33 05:28 11:31 POC Glucose 106 101 83 Imaging: ITS Impressions Head CT 05/25/18 15:22 CONCLUSION: Chronic small vessel ischemic and atrophic changes. Head MRI 05/27/18 00:00 CONCLUSION: 1. Atrophy, white matter disease and remote left temporal infarct with encephalomalacia. Abdomen X-Ray 06/08/18 00:00 CONCLUSION: Nasogastric tube tip in the distal stomach. Chest X-Ray 06/12/18 01:45 CONCLUSION: Bibasilar areas of suspected atelectasis, consolidation or possible effusions. Physical Exam: GENERAL: Very lethargic. HEENT: Head is atraumatic. Bitemporal wasting. Extraocular movements appear grossly intact. No icterus. NECK: Supple without adenopathy. LUNGS: Coarse basilar rhonchi bilateral. HEART: Regular S1 and S2. No murmurs heard. ABDOMEN: Bowel sounds present. Soft, no tenderness appreciated. EXTREMITIES: No clubbing or cyanosis. Swelling at the right upper extremity. SKIN: No diffuse rash. NEUROLOGIC: Unable to fully assess. Moves all extremities. PSYCHIATRIC: Unable to assess. Assessment and Plan - Plan IMPRESSION: 1. Pneumonia. 2. Recurring aspiration. 3. Post seizure. Now getting tube feeds. Could be having ongoing aspiration. 4. Leukocytosis. White blood cell count down to normal. 5. Acute respiratory failure. Extubated. 6. Urinary tract infection with Klebsiella. Treated. 6. Seizure disorder. RECOMMENDATIONS: 1. Continue aztreonam. Monitor white blood cell count and temperature. 2. Consider PEG tube for feeding. 3. Monitor clinical status. Discussed with patient's son at bedside.
--- NOTE | 2018-06-12 16:26 | P.PNPAL ---
Reason for Visit Reason for visit: a. To assist with evaluation and management of symptoms including: confusion, dyspnea b. To assist medical decision maker(s) with: better understanding of current medical conditions; weighing benefits/burdens of medical treatment options; making medical treatment decisions. Subjective Subjective/Interval History: Pt is frail, more lethargic per sons at bedside. Pt has had increase O2 needs at 7L. Pt not a peg candidate at the time. Patient has had recurring aspiration. Had discussion with son, they reaffirm DNR/DNI status. They ask for nebulizer treatment and suctioning. They sees father decline and if pt remain lethargic, and remains dyspneic, they would transition to comfort measures tomorrow. They were realistic and appreciative of the visit. Family/Friend Interactions: see hpi Advance Directives Health Care Surrogate Name and Number: Carlos Alberto Barnett [phone]; Amber Barnett [phone], Objective Vital Signs: Vital Signs 06/11/18 20:00 06/11/18 20:03 06/11/18 23:53 Temperature 98.1 F Pulse Rate 111 H 108 H 110 H Respiratory Rate 18 Blood Pressure 114/62 Pulse Oximetry 95 06/12/18 00:00 06/12/18 01:30 06/12/18 03:00 Temperature 97.6 F Pulse Rate 117 H Respiratory Rate 20 Blood Pressure 116/64 Pulse Oximetry 93 L 93 L 97 06/12/18 04:00 06/12/18 04:19 06/12/18 04:20 Temperature 98 F Pulse Rate 109 H Respiratory Rate 24 20 Blood Pressure 112/64 Pulse Oximetry 92 L 95 95 06/12/18 05:52 06/12/18 06:15 06/12/18 06:34 Temperature Pulse Rate Respiratory Rate Blood Pressure Pulse Oximetry 92 L 89 L 95 06/12/18 08:00 06/12/18 08:59 06/12/18 12:00 Temperature 96.6 F L 97.5 F L Pulse Rate 103 H 98 H Respiratory Rate 16 24 Blood Pressure 106/60 94/50 L Pulse Oximetry 92 L 90 L 96 Intake & Output 06/11/18 06/12/18 06/12/18 18:59 06:59 18:59 Intake Total 100 / 100 200 / 200 Output Total 0 / 0 Balance 100 / 100 200 / 200 Weight 53.1 kg Intake: IV 100 / 100 200 / 200 Azactam Inj 1,000 MG In NS Inj 100 / 100 200 / 200 100 ML @ 200 mls/hr IV.SIG Q8H ALPHONSE Rx#:[id number] Oral 0 / 0 Output: Urine/Stool Mix 0 / 0 Other: # Voids 3 Date of Last Bowel Movement 06/11/18 06/11/18 06/11/18 Physical Exam: CONSTITUTIONAL/GENERAL: cachectic, frail, lethargic. SKIN: No jaundice, rashes, or lesions. No wounds seen anteriorly. Skin temperature appropriate. Not diaphoretic. HEAD: Atraumatic. Normocephalic. EYES: Right pupil reactive, left pupil oval shaped and fixed. eyes glassy. Fundi not examined. ENT: Nose without bleeding or purulent drainage. CARDIOVASCULAR: tachycardic, irr HR, no gallops, or rubs. RESPIRATORY/CHEST: coarse basilar bilateral rhochi noted GASTROINTESTINAL: Abdomen soft, non-tender, nondistended. No hepato-splenomegaly , or palpable masses. No guarding. Bowel sounds present. GENITOURINARY: Without palpable bladder distension. Martin catheter in place. MUSCULOSKELETAL: + 2 pittingBLE edema NEUROLOGICAL: opens eyes, tracks. minimally verbal. lethargic. PSYCHIATRIC: unable to assess 2/2 mental status Diagnostic Tests Laboratory: Laboratory Results - last 72 hr 06/09/18 06/09/18 06/10/18 16:27 19:11 00:56 WBC RBC Hgb Hct MCV MCH MCHC RDW Plt Count MPV Neut % (Auto) Lymph % (Auto) [place] % (Auto) Eos % (Auto) Baso % (Auto) Neut # (Auto) Lymph # (Auto) [place] # (Auto) Eos # (Auto) Baso # (Auto) WBC Differential Differential Comment Sodium Potassium Chloride Carbon Dioxide Anion Gap BUN Creatinine Estimated GFR POC Glucose 154 H 109 139 H Random Glucose Calcium Ammonia 06/10/18 06/10/18 06/10/18 06:09 06:18 06:18 WBC 8.0 RBC 2.89 L Hgb 9.2 L Hct 27.3 L MCV 94.6 MCH 31.8 MCHC 33.6 RDW 18.3 H Plt Count 880 H MPV 7.4 Neut % (Auto) 61.6 Lymph % (Auto) 23.2 [place] % (Auto) 12.4 H Eos % (Auto) 1.0 Baso % (Auto) 1.8 Neut # (Auto) 4.9 Lymph # (Auto) 1.9 [place] # (Auto) 1.0 H Eos # (Auto) 0.1 Baso # (Auto) 0.1 WBC Differential . Differential Comment Auto diff final Sodium 150 H Potassium 4.3 Chloride 117 H Carbon Dioxide 25.7 Anion Gap 7 BUN 17 Creatinine 0.55 L Estimated GFR Greater than 89 POC Glucose 85 Random Glucose 83 Calcium 8.5 Ammonia 06/10/18 06/10/18 06/10/18 06:18 12:25 16:48 WBC RBC Hgb Hct MCV MCH MCHC RDW Plt Count MPV Neut % (Auto) Lymph % (Auto) [place] % (Auto) Eos % (Auto) Baso % (Auto) Neut # (Auto) Lymph # (Auto) [place] # (Auto) Eos # (Auto) Baso # (Auto) WBC Differential Differential Comment Sodium Potassium Chloride Carbon Dioxide Anion Gap BUN Creatinine Estimated GFR POC Glucose 94 100 Random Glucose Calcium Ammonia 26 06/11/18 06/11/18 06/11/18 00:33 05:55 12:33 WBC RBC Hgb Hct MCV MCH MCHC RDW Plt Count MPV Neut % (Auto) Lymph % (Auto) [place] % (Auto) Eos % (Auto) Baso % (Auto) Neut # (Auto) Lymph # (Auto) [place] # (Auto) Eos # (Auto) Baso # (Auto) WBC Differential Differential Comment Sodium Potassium Chloride Carbon Dioxide Anion Gap BUN Creatinine Estimated GFR POC Glucose 99 100 106 Random Glucose Calcium Ammonia 06/12/18 06/12/18 05:28 11:31 WBC RBC Hgb Hct MCV MCH MCHC RDW Plt Count MPV Neut % (Auto) Lymph % (Auto) [place] % (Auto) Eos % (Auto) Baso % (Auto) Neut # (Auto) Lymph # (Auto) [place] # (Auto) Eos # (Auto) Baso # (Auto) WBC Differential Differential Comment Sodium Potassium Chloride Carbon Dioxide Anion Gap BUN Creatinine Estimated GFR POC Glucose 101 83 Random Glucose Calcium Ammonia Result Diagrams: 06/10/18 06:18 06/10/18 06:18 Microbiology: Microbiology 06/05/18 17:40 Aerobic Blood Culture - Final Blood - Peripheral No growth in 5 days Anaerobic Blood Culture - Final No growth in 5 days 06/05/18 17:46 Aerobic Blood Culture - Final Blood - Peripheral No growth in 5 days Anaerobic Blood Culture - Final No growth in 5 days Imaging: ITS Impressions Head CT 05/25/18 15:22 CONCLUSION: Chronic small vessel ischemic and atrophic changes. Head MRI 05/27/18 00:00 CONCLUSION: 1. Atrophy, white matter disease and remote left temporal infarct with encephalomalacia. Abdomen X-Ray 06/08/18 00:00 CONCLUSION: Nasogastric tube tip in the distal stomach. Chest X-Ray 06/12/18 01:45 CONCLUSION: Bibasilar areas of suspected atelectasis, consolidation or possible effusions. 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 . Has 10 kids. Originally from [place], grew up in [place], has been in [place] for 40 y. Lives with one of his daughters. Some of his children are local. 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 It is unclear if he will regain capacity. He has previously designated son Carlos Alberto Barnett as primary HCS and daughter Amber as secondary. Ethical issues impacting care: none identified Important Contacts: Carlos Alberto Barnett, son/primary HCS: [phone] Amber Barnett daughter/alternate HCS: [phone] or [phone] Prognosis: 72 yo male with seizure disorder since head injury 5 y ago, noncompliance with seizure meds, 50 year hx drinking up to or more than a gallon of wine daily admitted 05/25 after having seizure like activity, intubated in the field. EEG showing encephalopathy. He appears cachectic and malnourished. It is unclear if his encephalopathy will improve completely. His poor nutrition status makes full physical recovery unlikely. He is quite likely to continue having complications such as seizures d/t noncompliance, episodes of withdrawal, falls. He has reapirated again. Poor clinical outlook. Code Status: No Code DNR Plan: - LEGAL DECISON MAKER - [facility] completed 02/13/17 Amber Sellers secondary - CODE STATUS- DNR. - GOALS - Had discussion with son, they reaffirm DNR/DNI status. They ask for nebulizer treatment and suctioning. Son sees father's decline and if pt remain lethargic, and if pt remains dyspneic , lethargic, they would transition to comfort measures tomorrow. They were realistic and appreciative of the visit. - SYMPTOMS - * dyspnea - intubated in field. extubated 06/06. sat 99% lung sounds coarse, + wheezes today. Has PRN and scheduled duonebs. Now ramon has reaspirated. * confusion - multifactorial, long hx etoh abuse, seizure disorder, head injury. ?withdrawal vs seizures vs both? EEG 05/26 showing encephalopathy, no seizure activity.on my eval he was lethargic- didn't rouse to verbal stimuli or my exam. off sedation, now extubated. Per neurology trial sinemet, neuro feels he will return to his baseline neurologically - Palliative care will continue to follow during hospital course as condition evolves, to assist patient/decision-maker with understanding of medical conditions, weighing benefits/burdens of treatment options, for clarification of goals of treatment. Additionally will assist with any symptoms of palliative concern Attestation Attestation: To help prompt me to consider important information that might be impacting today's encounter and assessment, information from prior notes written by myself or my colleagues may have been "brought forward" into today's note. My signature on this note, however, is an attestation that I personally performed the exam, history, and/or decision-making noted today, and, unless otherwise indicated, the interactions with patient, family, and staff as well as the review of records all occurred today. I also attest that the listed assessment and stated plan reflect my best clinical judgment today based on the combination of historical information, prior notes, and today's exam/ interactions. When time spent is documented, it refers only to time spent today by the signer, or if indicated, combined time spent today by collaborating physician/nurse practitioner.
--- NOTE | 2018-06-12 20:17 | US ---
EXAM DATE: 06/12/2018 8:04 PM EDT AGE/SEX: 72 years / Male INDICATIONS: Elevated LFT's. CLINICAL DATA: This is the patient's initial encounter. Patient reports that signs and symptoms have been present for 2 days and indicates a pain score of 0/10. MEDICAL/SURGICAL HISTORY: Seizures. ETOH abuse. Craniotomy. COMPARISON: No prior exams available for comparison. MEASUREMENTS: Liver:__ 16.5 cm. Common Bile Duct:__ 7mm. Right Kidney:__ 10.3 x 5.7 x 4.9 cm. FINDINGS: Liver: Mild hepatic heterogeneity with no focal lesion or intrahepatic biliary ductal dilatation Portal Vein: Hepatopedal flow seen in portal vein. Common Duct: No intraluminal mass or stone visualized. Gallbladder: Gallbladder is decompressed with a few internal echoes possibly representing mild sludge Pancreas: The visualized portions are within normal limits Right Kidney: Normal echotexture and cortical thickness. No mass or hydronephrosis. Other: None. CONCLUSION: 1. Mild hepatic heterogeneity with no focal lesion or intrahepatic biliary ductal dilatation. Findin gs are nonspecific but could represent early cirrhosis. 2. Gallbladder is decompressed but may contain a small amount of intraluminal sludge. 3. Otherwise negative. Electronically signed by: Jamil Villareal MD 06/12/2018 8:16 PM EDT
[2018-06-13] MEDS: Senna/Docusate Sodium 8.6/50 MG Tablet PO SCH ×3 (01:17→22:19)
[2018-06-13] MEDS: Chlorhexidine 0.12% Oral Kit 15 ML UDC OROPHARYNG SCH ×3 (01:40→23:24)
[2018-06-13] MEDS: Insulin NovoLIN Regular Correctional Sugar Inj SQ SCH ×5 (01:41→23:32)
[2018-06-13] MEDS: Oral Hygiene Kit OROPHARYNG SCH ×5 (01:41→23:24)
[2018-06-13 07:13] LABS: Baso # (Auto) 0.1 th/mm3 (0.0-0.2); Baso % (Auto) 0.7 % (0.0-2.0); Eos # (Auto) 0.1 th/mm3 (0.0-0.4); Eos % (Auto) 1.3 % (0.0-4.0); Hematocrit 26.9 % (39.0-51.0); Hemoglobin 8.7 gm/dL (13.0-17.0); Lymph # (Auto) 1.6 th/mm3 (1.0-4.8); Lymph % (Auto) 15.2 % (9.0-44.0); Mean Corpuscular HGB Conc 32.2 % (32.0-36.0); Mean Corpuscular Hemoglobin 30.2 pg (27.0-34.0); Mean Corpuscular Volume 93.9 fL (80.0-100.0); Mean Platelet Volume 7.4 fL (7.0-11.0); Mono # (Auto) 1.2 th/mm3 (0.0-0.9); Mono % (Auto) 11.3 % (0.0-8.0); Neut # (Auto) 7.3 th/mm3 (1.8-7.7); Neut % (Auto) 71.5 % (16.0-70.0); Platelet Count 740 th/mm3 (150-450); Red Blood Count 2.86 mil/mm3 (4.50-5.90); Red Cell Distribution Width 18.1 % (11.6-17.2); White Blood Count 10.2 th/mm3 (4.0-11.0)
--- NOTE | 2018-06-13 07:17 | P.PNNEU ---
Subjective Subjective Comments: more alert on lower keppra Active Medications: Active Medications Acetaminophen (Tylenol Liq) 650 mg PO Q6H PRN PRN Reason: SEE DOSE INSTRUCTIONS Last Admin: 06/05/18 04:47 Dose: 650 mg Al Hydroxide/Mg Hydroxide (Milk Of Magnesia Liq) 30 ml PO Q12H PRN PRN Reason: Mild Constipation Albuterol (Duoneb Neb (Prn)) 1 ampul NEB Q2HR NEB PRN PRN Reason: WHEEZING Albuterol (Duoneb Neb (Leigha)) 1 ampul NEB Q8HR ALT NEB [facility] Last Admin: 06/12/18 19:47 Dose: 1 ampul Bisacodyl (Dulcolax Supp) 10 mg RECTAL DAILY PRN PRN Reason: SEVERE CONSITIPATION Chlorhexidine Gluconate (Peridex 0.12% Oral Kit) 15 ml OROPHARYNG BID@0800, 2000 [facility] Last Admin: 06/13/18 01:40 Dose: Not Given Dextrose (D50w Vial) 50 ml IV.PUSH UNSCH PRN PRN Reason: PER HYPOGLYCEMIA PROTOCOL Enoxaparin Sodium (Lovenox Inj) 40 mg SQ Q24H [facility] Last Admin: 06/03/18 20:29 Dose: 40 mg Flumazenil (Romazecon Inj) 0.2 mg IV.PUSH Q1M PRN PRN Reason: OVERSEDATION Glucagon (Glucagon Inj) 1 mg OTHER PRN PRN PRN Reason: for Hypoglycemia Protocol Sodium Phosphate 30 mmol/ (Sodium Chloride) 260 mls @ 42 mls/hr IV.SIG UNSCH PRN PRN Reason: For Phosphorus < 2.5 mg/dL Last Infusion: 05/27/18 14:58 Dose: Infused Aztreonam 1,000 mg/ Sodium (Chloride) 100 mls @ 200 mls/hr IV.SIG Q8H [facility] Last Admin: 06/13/18 05:05 Dose: 200 mls/hr Insulin Human Regular (Novolin R Correctional Sugar Inj) 0 units SQ Q6HR [facility]; Protocol Last Admin: 06/13/18 01:41 Dose: Not Given Lactulose (Lactulose Liq) 30 ml PO DAILY PRN PRN Reason: SEVERE CONSITIPATION Methylphenidate HCl (Ritalin) 10 mg NG/OG BID@0700,1200 [facility] Last Admin: 06/12/18 19:52 Dose: Not Given Miscellaneous (Pill Splitter) 1 each OTHER UNSCH PRN PRN Reason: PILL SPLITTER Ondansetron HCl (Zofran Inj) 4 mg IV.PUSH Q6H PRN PRN Reason: NAUSEA OR VOMITING Senna/Docusate Sodium (Anupama-Colace) 1 tab PO BID [facility] Last Admin: 06/13/18 01:17 Dose: Not Given Sennosides (Senokot) 17.2 mg PO Q12H PRN PRN Reason: Moderate Constipation Sodium Chloride (Ns Flush) 2 ml IV.FLUSH BID [facility] Last Admin: 06/12/18 20:28 Dose: 2 ml Sodium Chloride (Ns Flush) 2 ml IV.FLUSH PRN PRN PRN Reason: FLUSH AFTER USING IV ACCESS Last Admin: 06/01/18 00:10 Dose: 2 ml Sterile Water (Free Water) 250 ml G-TUBE Q6HR [facility] Last Admin: 06/13/18 01:18 Dose: Not Given Thiamine HCl (Vitamin B1) 100 mg PO DAILY [facility] Last Admin: 06/12/18 11:49 Dose: Not Given Allergies/Adverse Reactions: Allergies Allergy/AdvReac Type Severity Reaction Status Date / Time Unable to Assess Allergy Unknown Unconscious Verified 05/25/18 17:12 Physical Exam Vital signs: Vital Signs 06/12/18 08:00 06/12/18 08:59 06/12/18 12:00 Temperature 96.6 F L 97.5 F L Pulse Rate 103 H 98 H Respiratory Rate 16 24 Blood Pressure 106/60 94/50 L Pulse Oximetry 92 L 90 L 96 06/12/18 16:00 06/12/18 16:55 06/12/18 19:49 Temperature 97.7 F Pulse Rate 101 H 99 H 100 H Respiratory Rate 18 20 24 Blood Pressure 137/60 Pulse Oximetry 99 06/12/18 19:57 06/12/18 20:00 06/12/18 23:46 Temperature 98.4 F 97.7 F Pulse Rate 102 H 101 H Respiratory Rate 18 20 Blood Pressure 114/50 L 96/51 L Pulse Oximetry 98 98 06/13/18 00:00 06/13/18 03:19 06/13/18 04:00 Temperature 97.5 F L Pulse Rate 102 H 100 H Respiratory Rate 18 18 Blood Pressure 94/52 L Pulse Oximetry 99 95 Intake & Output 06/12/18 06/13/18 06/13/18 18:59 06:59 18:59 Intake Total 100 / 100 Output Total 800 / 800 1600 / 1600 Balance -800 / -800 -1500 / -1500 Weight 53.1 kg Intake: IV 100 / 100 Azactam Inj 1,000 MG In NS Inj 100 / 100 100 ML @ 200 mls/hr IV.SIG Q8H LEIGHA Rx#:[id number] Oral 0 / 0 Tube Feeding 0 / 0 Output: Urine 1600 / 1600 Urine Amount (Catheter) 800 / 800 Condom 800 / 800 Other: Date of Last Bowel Movement 06/11/18 06/11/18 # Bowel Movements 3 # Incontinent Bowel Movements 3 Narrative: more alert this am - Urinary Catheter Management Indwelling Urethral Catheter Cath placed during this visit: yes, but has since been removed by the nurse Reason for continuing: Not indwelling catheter Insertion date: 05/25/18 Insertion time: 15:00 Removal date: 05/26/18 Removal time: 12:00 Straight Cath placed during this visit: yes Reason for continuing: Not indwelling catheter Insertion date: 06/05/18 Insertion time: 00:20 Condom Cath placed during this visit: no Reason for continuing: Not indwelling catheter Objective Laboratory Results - last 24 hr 06/12/18 06/12/18 06/13/18 11:31 18:07 01:24 WBC RBC Hgb Hct MCV MCH MCHC RDW Plt Count MPV Neut % (Auto) Lymph % (Auto) [place] % (Auto) Eos % (Auto) Baso % (Auto) Neut # (Auto) Lymph # (Auto) [place] # (Auto) Eos # (Auto) Baso # (Auto) WBC Differential Differential Comment POC Glucose 83 80 82 06/13/18 06/13/18 05:07 06:47 WBC 10.2 RBC 2.86 L Hgb 8.7 L Hct 26.9 L MCV 93.9 MCH 30.2 MCHC 32.2 RDW 18.1 H Plt Count 740 H MPV 7.4 Neut % (Auto) 71.5 H Lymph % (Auto) 15.2 [place] % (Auto) 11.3 H Eos % (Auto) 1.3 Baso % (Auto) 0.7 Neut # (Auto) 7.3 Lymph # (Auto) 1.6 [place] # (Auto) 1.2 H Eos # (Auto) 0.1 Baso # (Auto) 0.1 WBC Differential . Differential Comment Auto diff final POC Glucose 75 Review/Management - Review/Management Plan: imp mri and eeg neg on keppra hold all sedatives could be prolonged postictal will fu saturday see if awakens over next few days no apparent reason why he would not - 06/02/18 much better should do well keppra off vent when able 06/05/18 no sz he should bounce back neurowise to prior level of functioning keppra stable neuro 06/07/18 no sz on keppra 1000 bid eeg neg check abg for some inc ms change may need peg? i tai sone no etoh and needs to take his meds lives w daughter she should see that he does 06/08/18 have PT oob recheck eeg lower keppra to 750 bid should be making progress ? chest PT getting dehydrated na 150 06/09/18 a little better today try sinemet see if helps tremor and motor system etoher i dw son will fu eeg ok 06/10/18 no change i would think he should bounce back to prior functioning will need peg short term however maybe a month or two 06/11/18 try ritalin will dw nurse still lethargic will inc ritalin to 10mg i lowered the keppra to 250 bid 06/13/18 more alert on lower keppra i am going to dc keppra dn stay on ritalin and see how does he is at risk for sz but if it is med causing ms change need to know then on saturday i can start something else
[2018-06-13 07:22] LABS: INR 1.2 Ratio; Prothrombin Time 12.5 sec (9.8-11.6)
[2018-06-13 07:37] LABS: Anion Gap 8 meq/L (5-15); Blood Urea Nitrogen 15 mg/dL (7-18); Calcium 8.2 mg/dL (8.5-10.1); Carbon Dioxide 24.3 meq/L (21.0-32.0); Chloride 108 meq/L (98-107); Glomerular Filtration Rate Greater Than 89 mL/min (>89); Glucose,Random 74 mg/dL (74-106); Potassium 4.4 meq/L (3.5-5.1); Sodium 140 meq/L (136-145)
--- NOTE | 2018-06-13 10:17 | P.PNIM ---
Subjective Interval history: More awake and alert speaking with son however mildly confused still Physical Exam Vital signs: Vital Signs 06/12/18 12:00 06/12/18 16:00 06/12/18 16:55 Temperature 97.5 F L 97.7 F Pulse Rate 98 H 101 H 99 H Respiratory Rate 24 18 20 Blood Pressure 94/50 L 137/60 Pulse Oximetry 96 99 06/12/18 19:49 06/12/18 19:57 06/12/18 20:00 Temperature 98.4 F Pulse Rate 100 H 102 H Respiratory Rate 24 18 Blood Pressure 114/50 L Pulse Oximetry 98 98 06/12/18 23:46 06/13/18 00:00 06/13/18 03:19 Temperature 97.7 F Pulse Rate 101 H 102 H Respiratory Rate 20 18 Blood Pressure 96/51 L Pulse Oximetry 99 06/13/18 04:00 06/13/18 09:45 Temperature 97.5 F L Pulse Rate 100 H 92 H Respiratory Rate 18 14 Blood Pressure 94/52 L Pulse Oximetry 95 99 Intake & Output 06/12/18 06/13/18 06/13/18 18:59 06:59 18:59 Intake Total 100 / 100 Output Total 800 / 800 1600 / 1600 Balance -800 / -800 -1500 / -1500 Weight 53.1 kg Intake: IV 100 / 100 Azactam Inj 1,000 MG In NS Inj 100 / 100 100 ML @ 200 mls/hr IV.SIG Q8H [facility] Rx#:[id number] Oral 0 / 0 Tube Feeding 0 / 0 Output: Urine 1600 / 1600 Urine Amount (Catheter) 800 / 800 Condom 800 / 800 Other: Date of Last Bowel Movement 06/11/18 06/11/18 # Bowel Movements 3 # Incontinent Bowel Movements 3 Narrative: GENERAL: This is a thin male, in no apparent distress laying in bed. CARDIOVASCULAR: Regular rate and rhythm RESPIRATORY: Bilateral rhonchi GASTROINTESTINAL: Abdomen soft, non-tender, nondistended. Normal active bowel sounds MUSCULOSKELETAL: Extremities without clubbing, cyanosis, trace edema NEURO: Alert and awake and oriented to person but not to place time situation, follows simple commands generalized weakness all 4 extremities. - Urinary Catheter Management Indwelling Urethral Catheter Cath placed during this visit: yes, but has since been removed by the nurse Reason for continuing: Not indwelling catheter Insertion date: 05/25/18 Insertion time: 15:00 Removal date: 05/26/18 Removal time: 12:00 Straight Cath placed during this visit: yes Reason for continuing: Not indwelling catheter Insertion date: 06/05/18 Insertion time: 00:20 Condom Cath placed during this visit: no Reason for continuing: Not indwelling catheter Results - Labs CBC & Chem 7: 06/13/18 06:47 06/13/18 06:47 Laboratory Results - last 24 hr 06/12/18 06/12/18 06/13/18 11:31 18:07 01:24 WBC RBC Hgb Hct MCV MCH MCHC RDW Plt Count MPV Neut % (Auto) Lymph % (Auto) Pershing % (Auto) Eos % (Auto) Baso % (Auto) Neut # (Auto) Lymph # (Auto) Pershing # (Auto) Eos # (Auto) Baso # (Auto) WBC Differential Differential Comment PT INR Sodium Potassium Chloride Carbon Dioxide Anion Gap BUN Creatinine Estimated GFR POC Glucose 83 80 82 Random Glucose Calcium 06/13/18 06/13/18 06/13/18 05:07 06:47 06:47 WBC 10.2 RBC 2.86 L Hgb 8.7 L Hct 26.9 L MCV 93.9 MCH 30.2 MCHC 32.2 RDW 18.1 H Plt Count 740 H MPV 7.4 Neut % (Auto) 71.5 H Lymph % (Auto) 15.2 Pershing % (Auto) 11.3 H Eos % (Auto) 1.3 Baso % (Auto) 0.7 Neut # (Auto) 7.3 Lymph # (Auto) 1.6 Pershing # (Auto) 1.2 H Eos # (Auto) 0.1 Baso # (Auto) 0.1 WBC Differential . Differential Comment Auto diff final PT INR Sodium 140 Potassium 4.4 Chloride 108 H Carbon Dioxide 24.3 Anion Gap 8 BUN 15 Creatinine 0.37 L Estimated GFR Greater than 89 POC Glucose 75 Random Glucose 74 Calcium 8.2 L 06/13/18 06:47 WBC RBC Hgb Hct MCV MCH MCHC RDW Plt Count MPV Neut % (Auto) Lymph % (Auto) Pershing % (Auto) Eos % (Auto) Baso % (Auto) Neut # (Auto) Lymph # (Auto) Pershing # (Auto) Eos # (Auto) Baso # (Auto) WBC Differential Differential Comment PT 12.5 H INR 1.2 Sodium Potassium Chloride Carbon Dioxide Anion Gap BUN Creatinine Estimated GFR POC Glucose Random Glucose Calcium - Imaging Impressions Liver Ultrasound 06/12/18 00:00 CONCLUSION: 1. Mild hepatic heterogeneity with no focal lesion or intrahepatic biliary ductal dilatation. Findings are nonspecific but could represent early cirrhosis. 2. Gallbladder is decompressed but may contain a small amount of intraluminal sludge. 3. Otherwise negative. Assessment and Plan - Plan Alcohol dependence Alcohol withdrawal Seizure disorder with active seizures- improving. Medication noncompliance Acute combined toxic and metabolic encephalopathy-persist with mild improvement today. Frequent neurochecks with continued confusion which persists. Patient is less agitated. Continue with Keppra per Neuro EEG 05/26: negative for ictal activity. generalized slowing. Repeat EEG ordered on 05/29 in view of tremors noted in right upper extremity. Appreciate neurology consultation and recommendations. On thiamine and multivitamins Head CT negative for acute disease 05/25. MRI brain: Remote left temporal infarct, atrophy 05/27 Repeat ammonia level not elevated. Neurology recommended starting trial of Adderall Acute hypoxic and hypercarbic respiratory failure Head of bed elevated Continue with oxygen support and keep sats >92% Bronchodilators, Severe dysphasia and high risk for aspirationcontinue n.p.o. and speech therapy ; patient reaspirated yesterday and pulled NG tube out, will repeat swallow evaluation today as patient is more alert. Family does not want PEG tube. If failed swallow evaluation consideration of reinserting NG tube. IV fluids with D5 half-normal saline urinary retention - no indication for tubbs. straight cath q6h. Monitor renal function. I/O's, electrolytes replacement per protocol Hypernatremia Change Free water increased to 250 every 6 hour due to hypernatremia, this has improved. Alcoholic cirrhosis Acute protein calorie malnutritionsevere Severe hypokalemia- resolving.Replete today Acute intravascular volume depletion- resolving. Hyponatremia- resolved and now with hypernatremia Dehydration- resolving. ICU electrolyte protocol NPO by speech, continue tube feeds - Jevity 1.5 with goal rate 60ml/hr once NG tube can be replaced Previous failed swallow evaluation with high aspiration risk, we will repeat swallow evaluation today as patient is more alert Healthcare acquired pneumonia with aspiration pneumonia UTI noted. Urine cx: Kleb pneumonia on 05/29, Continue Aztreonam and Vanco per ID, day number #8 06/04, Urine, Blood culture, sputum cx: NGTD ID is following. Leukocytosis trending down Anemia, chronic likely due to history of cirrhosis and chronic disease monitor CBC, s/p transfuse 2u PRBC 06/04. Hyperglycemia of critical illness and now hypoglycemia due to n.p.o. status will start D5W -- SSI Prophylaxis: GI Prophylaxis Pepcid DVT Prophylaxis -- SCDs Lovenox held for anemia requiring blood transfusion Lines: Peripheral IVs Palliative care is following Patient is a DNR status Discussed with son at bedside Discharge Planning: May need long-term placement.
--- NOTE | 2018-06-13 11:12 | P.PNPAL ---
Reason for Visit Reason for visit: a. To assist with evaluation and management of symptoms including: confusion, dyspnea b. To assist medical decision maker(s) with: better understanding of current medical conditions; weighing benefits/burdens of medical treatment options; making medical treatment decisions. Subjective Subjective/Interval History: Pt is more responsive and appears to be less dyspneic. Keppra decreased, ritalin increased. BP still low. He is alert, speaking, talkative, but not making sense. Not really following commands. Pt's son at bedside. Pt's condition and neuro perspective was reviewed with him. I did tell him patient will have a lot of up and down. Sons is more optimistic today. For the time being he is not ready to transition to comfort, but see how patient does over the weekend. Goals are aggressive short of DNR. Family/Friend Interactions: see hpi. Advance Directives Health Care Surrogate Name and Number: Carlos Alberto Barnett [phone]; Amber Barnett [phone], Objective Vital Signs: Vital Signs 06/12/18 12:00 06/12/18 16:00 06/12/18 16:55 Temperature 97.5 F L 97.7 F Pulse Rate 98 H 101 H 99 H Respiratory Rate 24 18 20 Blood Pressure 94/50 L 137/60 Pulse Oximetry 96 99 06/12/18 19:49 06/12/18 19:57 06/12/18 20:00 Temperature 98.4 F Pulse Rate 100 H 102 H Respiratory Rate 24 18 Blood Pressure 114/50 L Pulse Oximetry 98 98 06/12/18 23:46 06/13/18 00:00 06/13/18 03:19 Temperature 97.7 F Pulse Rate 101 H 102 H Respiratory Rate 20 18 Blood Pressure 96/51 L Pulse Oximetry 99 06/13/18 04:00 06/13/18 08:00 06/13/18 09:45 Temperature 97.5 F L 97.9 F Pulse Rate 100 H 90 92 H Respiratory Rate 18 16 14 Blood Pressure 94/52 L 84/54 L Pulse Oximetry 95 100 99 Intake & Output 06/12/18 06/13/18 06/13/18 18:59 06:59 18:59 Intake Total 100 / 100 Output Total 800 / 800 1600 / 1600 Balance -800 / -800 -1500 / -1500 Weight 53.1 kg Intake: IV 100 / 100 Azactam Inj 1,000 MG In NS Inj 100 / 100 100 ML @ 200 mls/hr IV.SIG Q8H [facility] Rx#:[id number] Oral 0 / 0 Tube Feeding 0 / 0 Output: Urine 1600 / 1600 Urine Amount (Catheter) 800 / 800 Condom 800 / 800 Other: Date of Last Bowel Movement 06/11/18 06/11/18 # Bowel Movements 3 # Incontinent Bowel Movements 3 Physical Exam: CONSTITUTIONAL/GENERAL: cachectic, frail, more alert.. SKIN: No jaundice, rashes, or lesions. No wounds seen anteriorly. Skin temperature appropriate. Not diaphoretic. HEAD: Atraumatic. Normocephalic. EYES: Right pupil reactive, left pupil oval shaped and fixed. eyes glassy. Fundi not examined. ENT: Nose without bleeding or purulent drainage. CARDIOVASCULAR: tachycardic, irr HR, no gallops, or rubs. RESPIRATORY/CHEST: Patient has less rhonchi. GASTROINTESTINAL: Abdomen soft, non-tender, nondistended. No hepato-splenomegaly , or palpable masses. No guarding. Bowel sounds present. GENITOURINARY: Without palpable bladder distension. Martin catheter in place. MUSCULOSKELETAL: + 2 pittingBLE edema NEUROLOGICAL: opens eyes, tracks. minimally verbal. more alert. Not following commands. PSYCHIATRIC: unable to assess 2/2 mental status Diagnostic Tests Laboratory: Laboratory Results - last 72 hr 06/10/18 06/10/18 06/11/18 12:25 16:48 00:33 WBC RBC Hgb Hct MCV MCH MCHC RDW Plt Count MPV Neut % (Auto) Lymph % (Auto) Bradford % (Auto) Eos % (Auto) Baso % (Auto) Neut # (Auto) Lymph # (Auto) Bradford # (Auto) Eos # (Auto) Baso # (Auto) WBC Differential Differential Comment PT INR Sodium Potassium Chloride Carbon Dioxide Anion Gap BUN Creatinine Estimated GFR POC Glucose 94 100 99 Random Glucose Calcium 06/11/18 06/11/18 06/12/18 05:55 12:33 05:28 WBC RBC Hgb Hct MCV MCH MCHC RDW Plt Count MPV Neut % (Auto) Lymph % (Auto) Bradford % (Auto) Eos % (Auto) Baso % (Auto) Neut # (Auto) Lymph # (Auto) Bradford # (Auto) Eos # (Auto) Baso # (Auto) WBC Differential Differential Comment PT INR Sodium Potassium Chloride Carbon Dioxide Anion Gap BUN Creatinine Estimated GFR POC Glucose 100 106 101 Random Glucose Calcium 06/12/18 06/12/18 06/13/18 11:31 18:07 01:24 WBC RBC Hgb Hct MCV MCH MCHC RDW Plt Count MPV Neut % (Auto) Lymph % (Auto) Bradford % (Auto) Eos % (Auto) Baso % (Auto) Neut # (Auto) Lymph # (Auto) Bradford # (Auto) Eos # (Auto) Baso # (Auto) WBC Differential Differential Comment PT INR Sodium Potassium Chloride Carbon Dioxide Anion Gap BUN Creatinine Estimated GFR POC Glucose 83 80 82 Random Glucose Calcium 06/13/18 06/13/18 06/13/18 05:07 06:47 06:47 WBC 10.2 RBC 2.86 L Hgb 8.7 L Hct 26.9 L MCV 93.9 MCH 30.2 MCHC 32.2 RDW 18.1 H Plt Count 740 H MPV 7.4 Neut % (Auto) 71.5 H Lymph % (Auto) 15.2 Bradford % (Auto) 11.3 H Eos % (Auto) 1.3 Baso % (Auto) 0.7 Neut # (Auto) 7.3 Lymph # (Auto) 1.6 Bradford # (Auto) 1.2 H Eos # (Auto) 0.1 Baso # (Auto) 0.1 WBC Differential . Differential Comment Auto diff final PT INR Sodium 140 Potassium 4.4 Chloride 108 H Carbon Dioxide 24.3 Anion Gap 8 BUN 15 Creatinine 0.37 L Estimated GFR Greater than 89 POC Glucose 75 Random Glucose 74 Calcium 8.2 L 06/13/18 06:47 WBC RBC Hgb Hct MCV MCH MCHC RDW Plt Count MPV Neut % (Auto) Lymph % (Auto) Bradford % (Auto) Eos % (Auto) Baso % (Auto) Neut # (Auto) Lymph # (Auto) Bradford # (Auto) Eos # (Auto) Baso # (Auto) WBC Differential Differential Comment PT 12.5 H INR 1.2 Sodium Potassium Chloride Carbon Dioxide Anion Gap BUN Creatinine Estimated GFR POC Glucose Random Glucose Calcium Result Diagrams: 06/13/18 06:47 06/13/18 06:47 Microbiology: Microbiology 06/05/18 17:40 Aerobic Blood Culture - Final Blood - Peripheral No growth in 5 days Anaerobic Blood Culture - Final No growth in 5 days 06/05/18 17:46 Aerobic Blood Culture - Final Blood - Peripheral No growth in 5 days Anaerobic Blood Culture - Final No growth in 5 days Assessment and Plan - Disease Oriented Problem List (1) Generalized seizure (2) Episode of unresponsiveness (3) Alcohol abuse - Symptom Scale (1) Debility 0-10 Scale: Unable to quantify (2) Confusion 0-10 Scale: Unable to quantify (3) Dyspnea 0-10 Scale: Unable to quantify Pertinent Non-Medical Issues: Psychosocial: 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 . Has 10 kids. Originally from [place], grew up in [place], has been in [place] for 40 y. Lives with one of his daughters. Some of his children are local. Spiritual: Jainism non-adventism, daughter requests industrial millwright visit Legal: Pt is not capacitated to make medical decisions. It is unclear if he will regain capacity. He has previously designated son Carlos Alberto Barnett as primary HCS and daughter Amber as secondary. Ethical issues impacting care: none identified Important Contacts: Carlos Alberto Barnett, son/primary HCS: [phone] Amber Barnett daughter/alternate HCS: [phone] or [phone] Prognosis: 72 yo male with seizure disorder since head injury 5 y ago, noncompliance with seizure meds, 50 year hx drinking up to or more than a gallon of wine daily admitted 05/25 after having seizure like activity, intubated in the field. EEG showing encephalopathy. He appears cachectic and malnourished. It is unclear if his encephalopathy will improve completely. His poor nutrition status makes full physical recovery unlikely. He is quite likely to continue having complications such as seizures d/t noncompliance, episodes of withdrawal, falls. He has reaspirated again. Code Status: No Code DNR Plan: - LEGAL DECISON MAKER - HCS completed 02/13/17 Amber Sellers secondary - CODE STATUS- DNR. - GOALS - Pt's condition and neuro perspective was reviewed with him. I did tell family, patient will have a lot of up and down. Sons is more optimistic today. For the time being he is not ready to transition to comfort, but see how patient does over the weekend. Goals are aggressive short of DNR. - SYMPTOMS - * dyspnea - intubated in field. extubated 06/06. sat 99% lung sounds coarse, + wheezes . Has PRN and scheduled duonebs. * Less lethargic today. * confusion - multifactorial, long hx etoh abuse, seizure disorder, head injury. ?withdrawal vs seizures vs both? EEG 05/26 showing encephalopathy, no seizure activity.on my eval he was lethargic- didn't rouse to verbal stimuli or my exam. off sedation, now extubated. Per neurology following. - Palliative care will continue to follow during hospital course as condition evolves, to assist patient/decision-maker with understanding of medical conditions, weighing benefits/burdens of treatment options, for clarification of goals of treatment. Additionally will assist with any symptoms of palliative concern Attestation Attestation: To help prompt me to consider important information that might be impacting today's encounter and assessment, information from prior notes written by myself or my colleagues may have been "brought forward" into today's note. My signature on this note, however, is an attestation that I personally performed the exam, history, and/or decision-making noted today, and, unless otherwise indicated, the interactions with patient, family, and staff as well as the review of records all occurred today. I also attest that the listed assessment and stated plan reflect my best clinical judgment today based on the combination of historical information, prior notes, and today's exam/ interactions. When time spent is documented, it refers only to time spent today by the signer, or if indicated, combined time spent today by collaborating physician/nurse practitioner.
[2018-06-13] MEDS: Dextrose 5%/NaCl 0.45% Inj 1,000 ML IV.CONT SCH (13:05)
--- NOTE | 2018-06-13 14:43 | P.PNGI ---
Subjective Interval history: Patient is more alert today with eyes open and attempting to answer a few simple questions Family member son is in the room for supportive care Currently patient is wanting to try to eat and sit up liquids which is what his son wants for now also. Speech therapy to evaluate today No current nausea vomiting or abdominal pain Current hemoglobin 8.7 <Mallika Benito - Last Filed: 06/13/18 14:47> Interval history: Patient was seen and examined, agree with above note, family does not want at this point to have a PEG tube there okay with NG tube, so we will follow-up as needed if they change their mind we will be happy to reevaluate, patient is high risk because of respiratory issue, is considering palliative care <Mckenna Cedillo - Last Filed: 06/13/18 15:36> Physical Exam Vital signs: Vital Signs 06/12/18 16:00 06/12/18 16:55 06/12/18 19:49 Temperature 97.7 F Pulse Rate 101 H 99 H 100 H Respiratory Rate 18 20 24 Blood Pressure 137/60 Pulse Oximetry 99 06/12/18 19:57 06/12/18 20:00 06/12/18 23:46 Temperature 98.4 F 97.7 F Pulse Rate 102 H 101 H Respiratory Rate 18 20 Blood Pressure 114/50 L 96/51 L Pulse Oximetry 98 98 06/13/18 00:00 06/13/18 03:19 06/13/18 04:00 Temperature 97.5 F L Pulse Rate 102 H 100 H Respiratory Rate 18 18 Blood Pressure 94/52 L Pulse Oximetry 99 95 06/13/18 08:00 06/13/18 09:45 06/13/18 12:00 Temperature 97.9 F 97.3 F L Pulse Rate 90 92 H 93 H Respiratory Rate 16 14 16 Blood Pressure 84/54 L 126/65 Pulse Oximetry 100 99 98 Intake & Output 06/12/18 06/13/18 06/13/18 18:59 06:59 18:59 Intake Total 200 / 200 0 / 0 Output Total 800 / 800 1600 / 1600 Balance -800 / -800 -1400 / -1400 0 / 0 Weight 53.1 kg Intake: IV 200 / 200 0 / 0 Azactam Inj 1,000 MG In NS Inj 200 / 200 0 / 0 100 ML @ 200 mls/hr IV.SIG Q8H [facility] Rx#:[id number] Oral 0 / 0 Tube Feeding 0 / 0 Output: Urine 1600 / 1600 Urine Amount (Catheter) 800 / 800 Condom 800 / 800 Other: Date of Last Bowel Movement 06/11/18 06/11/18 # Bowel Movements 3 # Incontinent Bowel Movements 3 - Constitutional mild distress, thin, cachectic, chronically ill appearing - Routine HEENT Exam Head: Present: normocephalic ENT: Present: mucous membranes dry - Routine Respiratory Exam Present: accessory muscle use (Low volumes but even and unlabored at rest) - Routine Cardiovascular Exam Present: S1, S2 - Routine Abdominal Exam Present: soft (Flat, soft bowel sounds, no rigidity or distention noted) - Urinary Catheter Management Indwelling Urethral Catheter Cath placed during this visit: yes, but has since been removed by the nurse Reason for continuing: Not indwelling catheter Insertion date: 05/25/18 Insertion time: 15:00 Removal date: 05/26/18 Removal time: 12:00 Straight Cath placed during this visit: yes Reason for continuing: Not indwelling catheter Insertion date: 06/05/18 Insertion time: 00:20 Condom Cath placed during this visit: no Reason for continuing: Not indwelling catheter <Mallika Benito - Last Filed: 06/13/18 14:47> Vital signs: Vital Signs 06/12/18 16:00 06/12/18 16:55 06/12/18 19:49 Temperature 97.7 F Pulse Rate 101 H 99 H 100 H Respiratory Rate 18 20 24 Blood Pressure 137/60 Pulse Oximetry 99 06/12/18 19:57 06/12/18 20:00 06/12/18 23:46 Temperature 98.4 F 97.7 F Pulse Rate 102 H 101 H Respiratory Rate 18 20 Blood Pressure 114/50 L 96/51 L Pulse Oximetry 98 98 06/13/18 00:00 06/13/18 03:19 06/13/18 04:00 Temperature 97.5 F L Pulse Rate 102 H 100 H Respiratory Rate 18 18 Blood Pressure 94/52 L Pulse Oximetry 99 95 06/13/18 08:00 06/13/18 09:45 06/13/18 12:00 Temperature 97.9 F 97.3 F L Pulse Rate 90 92 H 93 H Respiratory Rate 16 14 16 Blood Pressure 84/54 L 126/65 Pulse Oximetry 100 99 98 Intake & Output 06/12/18 06/13/18 06/13/18 18:59 06:59 18:59 Intake Total 200 / 200 0 / 0 Output Total 800 / 800 1600 / 1600 Balance -800 / -800 -1400 / -1400 0 / 0 Weight 53.1 kg Intake: IV 200 / 200 0 / 0 Azactam Inj 1,000 MG In NS Inj 200 / 200 0 / 0 100 ML @ 200 mls/hr IV.SIG Q8H [facility] Rx#:[id number] Oral 0 / 0 Tube Feeding 0 / 0 Output: Urine 1600 / 1600 Urine Amount (Catheter) 800 / 800 Condom 800 / 800 Other: Date of Last Bowel Movement 06/11/18 06/11/18 # Bowel Movements 3 # Incontinent Bowel Movements 3 - Urinary Catheter Management Indwelling Urethral Catheter Cath placed during this visit: no Straight Cath placed during this visit: no Condom Cath placed during this visit: no <Mckenna Cedillo - Last Filed: 06/13/18 15:36> Results - Labs CBC & Chem 7: 06/13/18 06:47 06/13/18 06:47 Laboratory Results - last 24 hr 06/12/18 06/13/18 06/13/18 18:07 01:24 05:07 WBC RBC Hgb Hct MCV MCH MCHC RDW Plt Count MPV Neut % (Auto) Lymph % (Auto) [place] % (Auto) Eos % (Auto) Baso % (Auto) Neut # (Auto) Lymph # (Auto) [place] # (Auto) Eos # (Auto) Baso # (Auto) WBC Differential Differential Comment PT INR Sodium Potassium Chloride Carbon Dioxide Anion Gap BUN Creatinine Estimated GFR POC Glucose 80 82 75 Random Glucose Calcium 06/13/18 06/13/18 06/13/18 06:47 06:47 06:47 WBC 10.2 RBC 2.86 L Hgb 8.7 L Hct 26.9 L MCV 93.9 MCH 30.2 MCHC 32.2 RDW 18.1 H Plt Count 740 H MPV 7.4 Neut % (Auto) 71.5 H Lymph % (Auto) 15.2 [place] % (Auto) 11.3 H Eos % (Auto) 1.3 Baso % (Auto) 0.7 Neut # (Auto) 7.3 Lymph # (Auto) 1.6 [place] # (Auto) 1.2 H Eos # (Auto) 0.1 Baso # (Auto) 0.1 WBC Differential . Differential Comment Auto diff final PT 12.5 H INR 1.2 Sodium 140 Potassium 4.4 Chloride 108 H Carbon Dioxide 24.3 Anion Gap 8 BUN 15 Creatinine 0.37 L Estimated GFR Greater than 89 POC Glucose Random Glucose 74 Calcium 8.2 L 06/13/18 13:02 WBC RBC Hgb Hct MCV MCH MCHC RDW Plt Count MPV Neut % (Auto) Lymph % (Auto) [place] % (Auto) Eos % (Auto) Baso % (Auto) Neut # (Auto) Lymph # (Auto) [place] # (Auto) Eos # (Auto) Baso # (Auto) WBC Differential Differential Comment PT INR Sodium Potassium Chloride Carbon Dioxide Anion Gap BUN Creatinine Estimated GFR POC Glucose 90 Random Glucose Calcium - Imaging Impressions Liver Ultrasound 06/12/18 00:00 CONCLUSION: 1. Mild hepatic heterogeneity with no focal lesion or intrahepatic biliary ductal dilatation. Findings are nonspecific but could represent early cirrhosis. 2. Gallbladder is decompressed but may contain a small amount of intraluminal sludge. 3. Otherwise negative. <Mallika Benito - Last Filed: 06/13/18 14:47> - Labs CBC & Chem 7: 06/13/18 06:47 06/13/18 06:47 Laboratory Results - last 24 hr 06/12/18 06/13/18 06/13/18 18:07 01:24 05:07 WBC RBC Hgb Hct MCV MCH MCHC RDW Plt Count MPV Neut % (Auto) Lymph % (Auto) [place] % (Auto) Eos % (Auto) Baso % (Auto) Neut # (Auto) Lymph # (Auto) [place] # (Auto) Eos # (Auto) Baso # (Auto) WBC Differential Differential Comment PT INR Sodium Potassium Chloride Carbon Dioxide Anion Gap BUN Creatinine Estimated GFR POC Glucose 80 82 75 Random Glucose Calcium 06/13/18 06/13/18 06/13/18 06:47 06:47 06:47 WBC 10.2 RBC 2.86 L Hgb 8.7 L Hct 26.9 L MCV 93.9 MCH 30.2 MCHC 32.2 RDW 18.1 H Plt Count 740 H MPV 7.4 Neut % (Auto) 71.5 H Lymph % (Auto) 15.2 [place] % (Auto) 11.3 H Eos % (Auto) 1.3 Baso % (Auto) 0.7 Neut # (Auto) 7.3 Lymph # (Auto) 1.6 [place] # (Auto) 1.2 H Eos # (Auto) 0.1 Baso # (Auto) 0.1 WBC Differential . Differential Comment Auto diff final PT 12.5 H INR 1.2 Sodium 140 Potassium 4.4 Chloride 108 H Carbon Dioxide 24.3 Anion Gap 8 BUN 15 Creatinine 0.37 L Estimated GFR Greater than 89 POC Glucose Random Glucose 74 Calcium 8.2 L 06/13/18 13:02 WBC RBC Hgb Hct MCV MCH MCHC RDW Plt Count MPV Neut % (Auto) Lymph % (Auto) [place] % (Auto) Eos % (Auto) Baso % (Auto) Neut # (Auto) Lymph # (Auto) [place] # (Auto) Eos # (Auto) Baso # (Auto) WBC Differential Differential Comment PT INR Sodium Potassium Chloride Carbon Dioxide Anion Gap BUN Creatinine Estimated GFR POC Glucose 90 Random Glucose Calcium - Imaging Impressions Liver Ultrasound 06/12/18 00:00 CONCLUSION: 1. Mild hepatic heterogeneity with no focal lesion or intrahepatic biliary ductal dilatation. Findings are nonspecific but could represent early cirrhosis. 2. Gallbladder is decompressed but may contain a small amount of intraluminal sludge. 3. Otherwise negative. <Mckenna Cedillo - Last Filed: 06/13/18 15:36> Assessment and Plan - Plan History - Dysphagia Pt brought to ER on 05/25 for ongoing active seizures, pt required mechanical ventilation, has since been extubated and is currently on 8L of O2 via simple mask on a medical floor. since extubation pt has remained confused and neurology has been following, noted to have poor prognosis. Pt was previously receiving nutrition through NG tube but he has pulled this out and currently is NPO. He has been seen by speech therapy who states pt has severe oropharyngeal dysphagia with poor secretion management and is at a high risk for aspiration. Son, Carlos Alberto is at bedside during exam, he is the patient's medical decision maker. Discussed that at this time pt is not stable to undergo anesthesia needed for PEG tube placement. Son states "well can't we just take the oxygen off so that he is no longer on it and can have the procedure". I discussed with pts son why this is not an option. Discussed with palliative care, following. - ETOH dependence- with elevated LFTs - no imaging of the liver 06/13/2018. Patient is more alert today eyes open and is responsive to some verbal stimuli. Patient's son in the room for supportive care patient is wanting some liquids and/or food and appears to have some appetite today. Hospitalist currently round and states speech therapy to evaluate swallow and see if patient is able to eat and take liquids. Encouraged patient and son, maintain head of bed up 45 or more when patient is eating and make sure he is fully alert before given him any liquids or food, even after he goes home on an outpatient basis. Patient currently has been evaluated for PEG tube but due to his cirrhosis is a high risk candidate for any long-term PEG. If need short-term nutrition consider Dobbhoff which patient and son are now declining since he is more alert today. Palliative care note reviewed patient , DNR Speech therapy evaluation noted severe laryngeal dysphasia with high risk of aspiration. Recommends continued n.p.o. for now. Plan Diet n.p.o. for now, speech therapy evaluation for any dysphasia. Further recommendations to follow Monitor labs Supportive care Patient was seen per myself and Dr. Cedillo, note was written on his behalf <Mallika Benito - Last Filed: 06/13/18 14:47>
--- NOTE | 2018-06-13 14:44 | P.DIET ---
Nutritional Evaluation Type of nutrition evaluation: follow-up Nutrition consult regarding: Tube Feeding Nutrition screening: [facility] [place] Objective - Diagnosis Unresponsive, Breakthrough Seizures - Objective % IBW: 69 (OFV=146#) Body Weight Used for Calculations: IBW (75.5kg) Energy Needs - Lower Range (kCal/kg): 25 Energy Needs - Upper Range (kCal/kg): 30 Lower Limit kCal/kg (kCals): 1,888 Upper Limit kCal/kg (kCals): 2,265 Lower Limit Protein Factor (Grams per Kg): 1.2 Upper Limit Protein Factor (Grams per Kg): 1.5 Lower Protein Needs (Protein): 91 Upper Protein Needs (Protein): 113 Dietitian Reviewed in Medical Record: Curent medications, Intake & Output, Labs , Tube feeding Diet Order: TF Only Objective Comments: Meds: Thiamine Pt was on Dilantin at home, not currently on it Feeding - Current Tube Feeding Tube Feeding Product: Jevity 1.5 Tube Feeding Method: Pump Tube Feeding Rate: 60 Current kCals Provided by Tube Feedin,160 Current Protein Provided by Tube Feeding (gPRO): 92 Current Free H2O Provided (m/l): 1,094 Assessment Assessment: Pt continues to be at nutritional risk r/t current clinical status. Pt extubated on 06/[address] did a re-eval today and continues to recommend npo. Recommend continue Jevity 1.5 with goal rate of 60mls/hr as previously ordered. Pt on Dilantin at home but is not currently on it. CBW = 53.1 kg. LBM . Recommendations: Continue Jevity 1.5 @ 60mls/hr. Dietitian to Monitor: Lab values, Electrolytes, Intake & Output, Weight change, Medical course
[2018-06-14] MEDS: Dextrose 5%/NaCl 0.45% Inj 1,000 ML IV.CONT SCH ×3 (02:15→23:19)
[2018-06-14] MEDS: Oral Hygiene Kit OROPHARYNG SCH ×3 (03:23→17:15)
[2018-06-14] MEDS: Insulin NovoLIN Regular Correctional Sugar Inj SQ SCH ×4 (05:24→23:30)
[2018-06-14] MEDS: Chlorhexidine 0.12% Oral Kit 15 ML UDC OROPHARYNG SCH ×2 (08:43→23:20)
--- NOTE | 2018-06-14 09:50 | P.PNIM ---
Subjective Interval history: Did not pass a swallow evaluation yesterday and was unable to tolerate inserting an NG tube last night. Will attempt another swallow evaluation today. He is awake and alert but continues to be confused and on a simple mask today. Physical Exam Vital signs: Vital Signs 06/13/18 12:00 06/13/18 16:00 06/13/18 17:52 Temperature 97.3 F L 97.4 F L Pulse Rate 92 H 94 H 95 H Respiratory Rate 16 28 H 14 Blood Pressure 126/65 97/60 L Pulse Oximetry 98 91 L 97 06/13/18 20:00 06/14/18 00:00 06/14/18 03:30 Temperature 98.2 F 97.4 F L 97.3 F L Pulse Rate 100 H 92 H 93 H Respiratory Rate 18 20 20 Blood Pressure 107/60 111/59 L 104/60 Pulse Oximetry 92 L 98 100 06/14/18 04:00 06/14/18 05:16 06/14/18 07:00 Temperature Pulse Rate 87 92 H 94 H Respiratory Rate 16 16 Blood Pressure Pulse Oximetry 97 96 06/14/18 08:00 Temperature 97.6 F Pulse Rate 99 H Respiratory Rate 18 Blood Pressure 95/55 L Pulse Oximetry 94 L Intake & Output 06/13/18 06/14/18 06/14/18 18:59 06:59 18:59 Intake Total 0 / 0 1300 / 1300 Balance 0 / 0 1300 / 1300 Weight 53.6 kg Intake: IV 0 / 0 1300 / 1300 D5W/1/2 NS Inj 1,000 ML @ 60 1000 / 1000 mls/hr IV.CONT .[id number] [facility] Rx# :[id number] Azactam Inj 1,000 MG In NS Inj 0 / 0 300 / 300 100 ML @ 200 mls/hr IV.SIG Q8H [facility] Rx#:[id number] Other: # Incontinent Voids 2 Date of Last Bowel Movement 06/13/18 06/13/18 06/13/18 # Incontinent Bowel Movements 3 Narrative: GENERAL: This is a thin male, in no apparent distress laying in bed with simple mask. CARDIOVASCULAR: Regular rate and rhythm RESPIRATORY: Bilateral rhonchi GASTROINTESTINAL: Abdomen soft, non-tender, nondistended. Normal active bowel sounds MUSCULOSKELETAL: Extremities without clubbing, cyanosis, trace edema NEURO: Alert and awake and oriented to person but not to place time situation, follows simple commands generalized weakness all 4 extremities. - Urinary Catheter Management Indwelling Urethral Catheter Cath placed during this visit: yes, but has since been removed by the nurse Reason for continuing: Not indwelling catheter Insertion date: 05/25/18 Insertion time: 15:00 Removal date: 05/26/18 Removal time: 12:00 Straight Cath placed during this visit: yes Reason for continuing: Not indwelling catheter Insertion date: 06/05/18 Insertion time: 00:20 Condom Cath placed during this visit: no Reason for continuing: Not indwelling catheter Results - Labs CBC & Chem 7: 06/13/18 06:47 06/13/18 06:47 Laboratory Results - last 24 hr 06/13/18 06/13/18 06/13/18 13:02 18:11 23:31 POC Glucose 90 101 105 06/14/18 05:17 POC Glucose 109 Assessment and Plan - Plan Alcohol dependence Alcohol withdrawal Seizure disorder with active seizures- improving. Medication noncompliance Acute combined toxic and metabolic encephalopathy-persist with mild improvement today. Frequent neurochecks with continued confusion which persists. Patient is less agitated today and will attempt swallow evaluation.. Continue with Keppra per Neuro EEG 05/26: negative for ictal activity. generalized slowing. Repeat EEG ordered on 05/29 in view of tremors noted in right upper extremity. Appreciate neurology consultation and recommendations. On thiamine and multivitamins Head CT negative for acute disease 05/25. MRI brain: Remote left temporal infarct, atrophy 05/27 Repeat ammonia level not elevated. Neurology recommended starting trial of Adderall Acute hypoxic and hypercarbic respiratory failure Head of bed elevated Continue with oxygen support and keep sats >92% Bronchodilators, Severe dysphasia and high risk for aspirationcontinue n.p.o. and speech therapy ; patient reaspirated 06/12 and pulled NG tube out, will repeat swallow evaluation today as patient is more alert. Family does not want PEG tube. If failed swallow evaluation consideration of reinserting NG tube. IV fluids with D5 half-normal saline; may need to consider PPN although this is not a good long-term solution. urinary retention - no indication for tubbs. straight cath q6h. Monitor renal function. I/O's, electrolytes replacement per protocol Hypernatremia Change Free water increased to 250 every 6 hour due to hypernatremia, this has improved. Alcoholic cirrhosis Acute protein calorie malnutritionsevere Severe hypokalemia- resolving.Replete today Acute intravascular volume depletion- resolving. Hyponatremia- resolved and now with hypernatremia Dehydration- resolving. ICU electrolyte protocol NPO by speech, continue tube feeds - Jevity 1.5 with goal rate 60ml/hr once NG tube can be replaced Previous failed swallow evaluation with high aspiration risk, we will repeat swallow evaluation today as patient is more alert Healthcare acquired pneumonia with aspiration pneumonia UTI noted. Urine cx: Kleb pneumonia on 05/29, Continue Aztreonam and Vanco per ID, day number #8 06/04, Urine, Blood culture, sputum cx: NGTD ID is following. Leukocytosis trending down Anemia, chronic likely due to history of cirrhosis and chronic disease monitor CBC, s/p transfuse 2u PRBC 06/04. Hyperglycemia of critical illness and now hypoglycemia due to n.p.o. status will start D5W -- SSI Prophylaxis: GI Prophylaxis Pepcid DVT Prophylaxis -- SCDs Lovenox held for anemia requiring blood transfusion Lines: Peripheral IVs Palliative care is following Patient is a DNR status Discussed with son at bedside who wants continue medical treatment up to DNR status, if patient does continue to decompensate will transition to hospice. Discharge Planning: May need long-term placement.
[2018-06-14] MEDS: Senna/Docusate Sodium 8.6/50 MG Tablet PO SCH ×2 (11:21→23:22)
[2018-06-15] MEDS: Oral Hygiene Kit OROPHARYNG SCH ×5 (03:25→23:40)
[2018-06-15] MEDS: Insulin NovoLIN Regular Correctional Sugar Inj SQ SCH ×4 (06:05→23:40)
[2018-06-15] MEDS: Chlorhexidine 0.12% Oral Kit 15 ML UDC OROPHARYNG SCH ×2 (09:53→20:30)
[2018-06-15] MEDS: Senna/Docusate Sodium 8.6/50 MG Tablet PO SCH ×2 (09:53→20:30)
[2018-06-15] MEDS: Dextrose 5%/NaCl 0.45% Inj 1,000 ML IV.CONT SCH ×2 (11:01→16:26)
--- NOTE | 2018-06-15 11:41 | P.PNIM ---
Subjective Interval history: Sleeping not as awake and alert. Less agitated. Physical Exam Vital signs: Vital Signs 06/14/18 12:00 06/14/18 15:27 06/14/18 15:28 Temperature 97.2 F L Pulse Rate 94 H 90 Respiratory Rate 18 18 Blood Pressure 99/55 L Pulse Oximetry 100 98 06/14/18 16:00 06/14/18 20:00 06/14/18 23:30 Temperature 97.7 F 97.7 F Pulse Rate 100 H 99 H 100 H Respiratory Rate 18 20 19 Blood Pressure 98/53 L 117/70 Pulse Oximetry 99 95 06/15/18 00:00 06/15/18 02:58 06/15/18 08:00 Temperature 97.6 F 98.2 F 97.6 F Pulse Rate 101 H 94 H 94 H Respiratory Rate 20 18 18 Blood Pressure 124/67 98/56 L 124/78 Pulse Oximetry 96 96 98 Intake & Output 06/14/18 06/15/18 06/15/18 18:59 06:59 18:59 Intake Total 1100 / 1100 1200 / 1200 1000 / 1000 Output Total 250 / 250 Balance 1100 / 1100 950 / 950 1000 / 1000 Weight 55.3 kg Intake: IV 1100 / 1100 1200 / 1200 1000 / 1000 D5W/1/2 NS Inj 1,000 ML @ 60 1000 / 1000 1000 / 1000 1000 / 1000 mls/hr IV.CONT .[id number] [facility] Rx# :[id number] Azactam Inj 1,000 MG In NS Inj 100 / 100 200 / 200 100 ML @ 200 mls/hr IV.SIG Q8H [facility] Rx#:[id number] Output: Urine 250 / 250 Other: # Voids 2 2 # Incontinent Voids 2 Date of Last Bowel Movement 06/13/18 06/13/18 Narrative: GENERAL: This is a thin male, in no apparent distress laying in bed with simple mask. CARDIOVASCULAR: Regular rate and rhythm RESPIRATORY: Bilateral rhonchi GASTROINTESTINAL: Abdomen soft, non-tender, nondistended. Normal active bowel sounds MUSCULOSKELETAL: Extremities without clubbing, cyanosis, trace edema NEURO: Sleepy, opens eyes with voice however confused, did not follow commands. - Urinary Catheter Management Indwelling Urethral Catheter Cath placed during this visit: yes, but has since been removed by the nurse Reason for continuing: Not indwelling catheter Insertion date: 05/25/18 Insertion time: 15:00 Removal date: 05/26/18 Removal time: 12:00 Straight Cath placed during this visit: yes Reason for continuing: Not indwelling catheter Insertion date: 06/05/18 Insertion time: 00:20 Condom Cath placed during this visit: no Reason for continuing: Not indwelling catheter Results - Labs CBC & Chem 7: 06/13/18 06:47 06/13/18 06:47 Laboratory Results - last 24 hr 06/14/18 06/14/18 06/14/18 12:04 17:16 23:30 POC Glucose 109 101 80 06/15/18 06:05 POC Glucose 83 Assessment and Plan - Plan Alcohol dependence Alcohol withdrawal Seizure disorder with active seizures- improving. Medication noncompliance Acute combined toxic and metabolic encephalopathy-persists. Frequent neurochecks with continued confusion which persists. Patient is less agitated today and will attempt swallow evaluation.. Continue with Keppra per Neuro EEG 05/26: negative for ictal activity. generalized slowing. Repeat EEG ordered on 05/29 in view of tremors noted in right upper extremity. Appreciate neurology consultation and recommendations. On thiamine and multivitamins Head CT negative for acute disease 05/25. MRI brain: Remote left temporal infarct, atrophy 05/27 Repeat ammonia level not elevated. Neurology recommended starting trial of Adderall Patient's mental status waxes and wanes however has not had much improvement. Acute hypoxic and hypercarbic respiratory failure Head of bed elevated Continue with oxygen support and keep sats >92% Bronchodilators, Severe dysphasia and high risk for aspirationcontinue n.p.o. and speech therapy ; patient reaspirated 06/12 and pulled NG tube out, patient failed a swallow evaluation. Family does not want PEG tube. Will attempt to reinsert NG tube today IV fluids with D5 half-normal saline; may need to consider PPN although this is not a good long-term solution if unable to insert NG tube.. urinary retention - no indication for tubbs. straight cath q6h. Monitor renal function. I/O's, electrolytes replacement per protocol Hypernatremia Change Free water increased to 250 every 6 hour due to hypernatremia, this has improved when patient was able to have NG tube. Alcoholic cirrhosis Acute protein calorie malnutritionsevere Severe hypokalemia- resolving.Replete today Acute intravascular volume depletion- resolving. Hyponatremia- resolved and now with hypernatremia Dehydration- resolving. ICU electrolyte protocol NPO by speech, continue tube feeds - Jevity 1.5 with goal rate 60ml/hr once NG tube can be replaced Previous failed swallow evaluation with high aspiration risk yesterday, patient consistently has failed swallow evaluation. Healthcare acquired pneumonia with aspiration pneumonia UTI noted. Urine cx: Kleb pneumonia on 05/29, Continue Aztreonam and Vanco per ID, day number #8 06/04, Urine, Blood culture, sputum cx: NGTD ID is following. Leukocytosis trending down Anemia, chronic likely due to history of cirrhosis and chronic disease monitor CBC, s/p transfuse 2u PRBC 06/04. Hyperglycemia of critical illness and now hypoglycemia due to n.p.o. status will start D5W -- SSI Prophylaxis: GI Prophylaxis Pepcid DVT Prophylaxis -- SCDs Lovenox held for anemia requiring blood transfusion Lines: Peripheral IVs Palliative care is following This is a complex case with patient having recurrent aspiration with persistent metabolic and alcoholic encephalopathy. Patient is a DNR status Discussed with son at bedside who wants continue medical treatment up to DNR status, if patient does continue to decompensate will transition to hospice. Discharge Planning: May need long-term placement if clinically improves. If continues to decompensate will need to transition to hospice.
[2018-06-16] MEDS: Oral Hygiene Kit OROPHARYNG SCH ×3 (04:51→21:45)
[2018-06-16] MEDS: Insulin NovoLIN Regular Correctional Sugar Inj SQ SCH ×3 (05:05→22:01)
[2018-06-16] MEDS: Dextrose 5%/NaCl 0.45% Inj 1,000 ML IV.CONT SCH ×2 (06:52→21:48)
--- NOTE | 2018-06-16 09:02 | P.PNNEU ---
Subjective Active Medications: Active Medications Acetaminophen (Tylenol Liq) 650 mg PO Q6H PRN PRN Reason: SEE DOSE INSTRUCTIONS Last Admin: 06/05/18 04:47 Dose: 650 mg Al Hydroxide/Mg Hydroxide (Milk Of Magnesia Liq) 30 ml PO Q12H PRN PRN Reason: Mild Constipation Albuterol (Duoneb Neb (Prn)) 1 ampul NEB Q2HR NEB PRN PRN Reason: WHEEZING Albuterol (Duoneb Neb (Leigha)) 1 ampul NEB Q8HR ALT NEB [facility] Last Admin: 06/16/18 08:10 Dose: 1 ampul Bisacodyl (Dulcolax Supp) 10 mg RECTAL DAILY PRN PRN Reason: SEVERE CONSITIPATION Chlorhexidine Gluconate (Peridex 0.12% Oral Kit) 15 ml OROPHARYNG BID@0800, 2000 [facility] Last Admin: 06/15/18 20:30 Dose: 15 ml Dextrose (D50w Vial) 50 ml IV.PUSH UNSCH PRN PRN Reason: PER HYPOGLYCEMIA PROTOCOL Enoxaparin Sodium (Lovenox Inj) 40 mg SQ Q24H [facility] Last Admin: 06/03/18 20:29 Dose: 40 mg Flumazenil (Romazecon Inj) 0.2 mg IV.PUSH Q1M PRN PRN Reason: OVERSEDATION Glucagon (Glucagon Inj) 1 mg OTHER PRN PRN PRN Reason: for Hypoglycemia Protocol Sodium Phosphate 30 mmol/ (Sodium Chloride) 260 mls @ 42 mls/hr IV.SIG UNSCH PRN PRN Reason: For Phosphorus < 2.5 mg/dL Last Infusion: 05/27/18 14:58 Dose: Infused Aztreonam 1,000 mg/ Sodium (Chloride) 100 mls @ 200 mls/hr IV.SIG Q8H [facility] Last Infusion: 06/16/18 06:52 Dose: Infused Dextrose/Sodium Chloride (D5w/1/2 Ns Inj) 1,000 mls @ 60 mls/hr IV.CONT .[id number] [facility] Last Admin: 06/16/18 06:52 Dose: Not Given Insulin Human Regular (Novolin R Correctional Sugar Inj) 0 units SQ Q6HR [facility]; Protocol Last Admin: 06/16/18 05:05 Dose: Not Given Lactulose (Lactulose Liq) 30 ml PO DAILY PRN PRN Reason: SEVERE CONSITIPATION Methylphenidate HCl (Ritalin) 10 mg NG/OG BID@0700,1200 [facility] Last Admin: 06/15/18 16:26 Dose: Not Given Miscellaneous (Pill Splitter) 1 each OTHER UNSCH PRN PRN Reason: PILL SPLITTER Ondansetron HCl (Zofran Inj) 4 mg IV.PUSH Q6H PRN PRN Reason: NAUSEA OR VOMITING Senna/Docusate Sodium (Anupama-Colace) 1 tab PO BID [facility] Last Admin: 06/15/18 20:30 Dose: 1 tab Sennosides (Senokot) 17.2 mg PO Q12H PRN PRN Reason: Moderate Constipation Sodium Chloride (Ns Flush) 2 ml IV.FLUSH BID [facility] Last Admin: 06/15/18 22:51 Dose: Not Given Sodium Chloride (Ns Flush) 2 ml IV.FLUSH PRN PRN PRN Reason: FLUSH AFTER USING IV ACCESS Last Admin: 06/01/18 00:10 Dose: 2 ml Sterile Water (Free Water) 250 ml G-TUBE Q6HR [facility] Last Admin: 06/16/18 05:05 Dose: 250 ml Thiamine HCl (Vitamin B1) 100 mg PO DAILY [facility] Last Admin: 06/15/18 09:53 Dose: Not Given Allergies/Adverse Reactions: Allergies Allergy/AdvReac Type Severity Reaction Status Date / Time Unable to Assess Allergy Unknown Unconscious Verified 05/25/18 17:12 Physical Exam Vital signs: Vital Signs 06/15/18 11:53 06/15/18 12:00 06/15/18 16:00 Temperature 97.4 F L 97.5 F L Pulse Rate 89 99 H 94 H Respiratory Rate 18 Blood Pressure 132/73 119/66 Pulse Oximetry 96 95 93 L 06/15/18 19:16 06/15/18 20:00 06/16/18 00:00 Temperature 98.1 F 98.4 F Pulse Rate 94 H 90 100 H Respiratory Rate 16 16 18 Blood Pressure 108/71 97/57 L Pulse Oximetry 97 100 98 06/16/18 03:33 06/16/18 04:00 06/16/18 08:16 Temperature 98.3 F Pulse Rate 99 H 102 H 103 H Respiratory Rate 16 18 12 Blood Pressure 108/65 Pulse Oximetry 95 06/16/18 08:17 Temperature Pulse Rate Respiratory Rate Blood Pressure Pulse Oximetry 97 Intake & Output 06/15/18 06/16/18 06/16/18 18:59 06:59 18:59 Intake Total 1100 / 1100 767 / 767 Balance 1100 / 1100 767 / 767 Weight 55.9 kg Intake: IV 1100 / 1100 767 / 767 D5W/1/2 NS Inj 1,000 ML @ 60 1000 / 1000 667 / 667 mls/hr IV.CONT .[id number] [facility] Rx# :[id number] Azactam Inj 1,000 MG In NS Inj 100 / 100 100 / 100 100 ML @ 200 mls/hr IV.SIG Q8H [facility] Rx#:[id number] Other: # Incontinent Voids 2 4 Date of Last Bowel Movement 06/15/18 06/15/18 # Incontinent Bowel Movements 1 Narrative: much more alert sayig some things - Urinary Catheter Management Indwelling Urethral Catheter Cath placed during this visit: yes, but has since been removed by the nurse Reason for continuing: Not indwelling catheter Insertion date: 05/25/18 Insertion time: 15:00 Removal date: 05/26/18 Removal time: 12:00 Straight Cath placed during this visit: yes Reason for continuing: Not indwelling catheter Insertion date: 06/05/18 Insertion time: 00:20 Condom Cath placed during this visit: no Reason for continuing: Not indwelling catheter Objective Laboratory Results - last 24 hr 06/15/18 06/15/18 06/15/18 12:45 17:14 22:53 POC Glucose 108 93 111 H 06/16/18 04:51 POC Glucose 119 H Review/Management - Review/Management Plan: imp mri and eeg neg on keppra hold all sedatives could be prolonged postictal will saturday see if awakens over next few days no apparent reason why he would not - 06/02/18 much better should do well keppra off vent when able 06/05/18 no sz he should bounce back neurowise to prior level of functioning keppra stable neuro 06/07/18 no sz on keppra 1000 bid eeg neg check abg for some inc ms change may need peg? i dw sone no etoh and needs to take his meds lives w daughter she should see that he does 06/08/18 have PT oob recheck eeg lower keppra to 750 bid should be making progress ? chest PT getting dehydrated na 150 06/09/18 a little better today try sinemet see if helps tremor and motor system etoher i dw son will fu eeg ok 06/10/18 no change i would think he should bounce back to prior functioning will need peg short term however maybe a month or two 06/11/18 try ritalin will dw nurse still lethargic will inc ritalin to 10mg i lowered the keppra to 250 bid 06/13/18 more alert on lower keppra i am going to dc keppra dn stay on ritalin and see how does he is at risk for sz but if it is med causing ms change need to know then on saturday i can start something else 06/16/18 looks much more alert try and get oob vimpat 50 bid for now
[2018-06-16] MEDS: Senna/Docusate Sodium 8.6/50 MG Tablet PO SCH ×2 (10:21→21:42)
[2018-06-16] MEDS: Chlorhexidine 0.12% Oral Kit 15 ML UDC OROPHARYNG SCH ×2 (10:23→21:46)
--- NOTE | 2018-06-16 11:27 | P.PNIM ---
Subjective Interval history: DW RN NGT IS FURTHER PULLED OUT WILL GET CHEST XRAY FOR PLACEMENT MAY NEED TO BE REINSERTED PRIOR TO USING AGAIN Physical Exam Vital signs: Vital Signs 06/15/18 11:53 06/15/18 12:00 06/15/18 16:00 Temperature 97.4 F L 97.5 F L Pulse Rate 89 99 H 94 H Respiratory Rate 20 18 18 Blood Pressure 132/73 119/66 Pulse Oximetry 96 95 93 L 06/15/18 19:16 06/15/18 20:00 06/16/18 00:00 Temperature 98.1 F 98.4 F Pulse Rate 94 H 90 100 H Respiratory Rate 16 16 18 Blood Pressure 108/71 97/57 L Pulse Oximetry 97 100 98 06/16/18 03:33 06/16/18 04:00 06/16/18 08:00 Temperature 98.3 F 98.2 F Pulse Rate 99 H 102 H 106 H Respiratory Rate 16 18 20 Blood Pressure 108/65 98/62 L Pulse Oximetry 95 92 L 06/16/18 08:16 06/16/18 08:17 Temperature Pulse Rate 103 H Respiratory Rate 12 Blood Pressure Pulse Oximetry 97 Intake & Output 06/15/18 06/16/18 06/16/18 18:59 06:59 18:59 Intake Total 1100 / 1100 767 / 767 Balance 1100 / 1100 767 / 767 Weight 55.9 kg Intake: IV 1100 / 1100 767 / 767 D5W/1/2 NS Inj 1,000 ML @ 60 1000 / 1000 667 / 667 mls/hr IV.CONT .[id number] [facility] Rx# :[id number] Azactam Inj 1,000 MG In NS Inj 100 / 100 100 / 100 100 ML @ 200 mls/hr IV.SIG Q8H [facility] Rx#:[id number] Other: # Incontinent Voids 2 4 Date of Last Bowel Movement 06/15/18 06/15/18 # Incontinent Bowel Movements 1 Narrative: GENERAL: This is a thin male, in no apparent distress laying in bed with simple mask. G-tube in place CARDIOVASCULAR: Regular rate and rhythm RESPIRATORY: Bilateral rhonchi GASTROINTESTINAL: Abdomen soft, non-tender, nondistended. Normal active bowel sounds MUSCULOSKELETAL: Extremities without clubbing, cyanosis, trace edema NEURO: Sleepy, opens eyes with voice however confused, did not follow commands. Not able to assess insight and judgment not able to assess mood or behavior Nonverbal at this time - Urinary Catheter Management Indwelling Urethral Catheter Cath placed during this visit: yes, but has since been removed by the nurse Reason for continuing: Not indwelling catheter Insertion date: 05/25/18 Insertion time: 15:00 Removal date: 05/26/18 Removal time: 12:00 Straight Cath placed during this visit: yes Reason for continuing: Not indwelling catheter Insertion date: 06/05/18 Insertion time: 00:20 Condom Cath placed during this visit: no Reason for continuing: Not indwelling catheter Results - Labs CBC & Chem 7: 06/13/18 06:47 06/13/18 06:47 Laboratory Results - last 24 hr 06/15/18 06/15/18 06/15/18 12:45 17:14 22:53 POC Glucose 108 93 111 H 06/16/18 04:51 POC Glucose 119 H - Imaging Chest X-Ray 05/25/18 15:22 CONCLUSION: No acute cardiopulmonary disease. Head CT 05/25/18 15:22 CONCLUSION: Chronic small vessel ischemic and atrophic changes. Head MRI 05/27/18 00:00 CONCLUSION: 1. Atrophy, white matter disease and remote left temporal infarct with encephalomalacia. Chest X-Ray 06/04/18 09:56 CONCLUSION: Patchy infiltrates are noted within the left mid and lower lung field and streakiness is noted within the right lung base consistent with atelectasis and/ or pneumonia. Clinical correlation is recommended. Chest X-Ray 06/07/18 07:12 CONCLUSION: Bilateral perihilar densities and left basilar airspace disease, not significantly changed. Abdomen X-Ray 06/08/18 00:00 CONCLUSION: Nasogastric tube tip in the distal stomach. Chest X-Ray 06/10/18 00:00 CONCLUSION: Nasogastric tube with tip in distal esophagus. This should be advanced at least 7 cm. Chest X-Ray 06/10/18 00:00 CONCLUSION: Nasogastric tube with tip in stomach, but could still be advanced. Stable bibasilar densities and small pleural effusions. Chest X-Ray 06/10/18 00:00 CONCLUSION: 1. Adequate placement of nasogastric tube. 2. Left basilar density and small pleural effusion. Liver Ultrasound 06/12/18 00:00 CONCLUSION: 1. Mild hepatic heterogeneity with no focal lesion or intrahepatic biliary ductal dilatation. Findings are nonspecific but could represent early cirrhosis. 2. Gallbladder is decompressed but may contain a small amount of intraluminal sludge. 3. Otherwise negative. Chest X-Ray 06/12/18 01:45 CONCLUSION: Bibasilar areas of suspected atelectasis, consolidation or possible effusions. Assessment and Plan - Plan Alcohol dependence Alcohol withdrawal Seizure disorder with active seizures- improving. Medication noncompliance Acute combined toxic and metabolic encephalopathy-persists. Frequent neurochecks with continued confusion which persists. Patient is less agitated today and will attempt swallow evaluation.. Continue with Keppra per Neuro EEG 05/26: negative for ictal activity. generalized slowing. Repeat EEG ordered on 05/29 in view of tremors noted in right upper extremity. Appreciate neurology consultation and recommendations. On thiamine and multivitamins Head CT negative for acute disease 05/25. MRI brain: Remote left temporal infarct, atrophy 05/27 Repeat ammonia level not elevated. Neurology recommended starting trial of Adderall Patient's mental status waxes and wanes however has not had much improvement. Acute hypoxic and hypercarbic respiratory failure Head of bed elevated Continue with oxygen support and keep sats >92% Bronchodilators, Severe dysphasia and high risk for aspirationcontinue n.p.o. and speech therapy ; patient reaspirated 06/12 and pulled NG tube out, patient failed a swallow evaluation. Family does not want PEG tube. Will attempt to reinsert NG tube today IV fluids with D5 half-normal saline; may need to consider PPN although this is not a good long-term solution if unable to insert NG tube.. NGT SEEMS TO BE FURTHER OUT THAN IT SHOULD BE WILL CHECK CHEST XRAY urinary retention - no indication for tubbs. straight cath q6h. Monitor renal function. I/O's, electrolytes replacement per protocol Hypernatremia Change Free water increased to 250 every 6 hour due to hypernatremia, this has improved when patient was able to have NG tube. Alcoholic cirrhosis Acute protein calorie malnutritionsevere Severe hypokalemia- resolving.Replete today Acute intravascular volume depletion- resolving. Hyponatremia- resolved and now with hypernatremia Dehydration- resolving. ICU electrolyte protocol NPO by speech, continue tube feeds - Jevity 1.5 with goal rate 60ml/hr once NG tube can be replaced Previous failed swallow evaluation with high aspiration risk yesterday, patient consistently has failed swallow evaluation. NGT VS PEG VS HOSPICE Healthcare acquired pneumonia with aspiration pneumonia UTI noted. Urine cx: Kleb pneumonia on 05/29, Continue Aztreonam and Vanco per ID, day number #8 06/04, Urine, Blood culture, sputum cx: NGTD ID is following. Leukocytosis trending down Anemia, chronic likely due to history of cirrhosis and chronic disease monitor CBC, s/p transfuse 2u PRBC 06/04. Hyperglycemia of critical illness and now hypoglycemia due to n.p.o. status will start D5W -- SSI Prophylaxis: GI Prophylaxis Pepcid DVT Prophylaxis -- SCDs Lovenox held for anemia requiring blood transfusion Lines: Peripheral IVs Palliative care is following This is a complex case with patient having recurrent aspiration with persistent metabolic and alcoholic encephalopathy. Patient is a DNR status Discussed with son at bedside who wants continue medical treatment up to DNR status, if patient does continue to decompensate will transition to hospice. Discharge Planning: May need long-term placement if clinically improves. CANNOT PLACE WITH NGT IN PLACE If continues to decompensate will need to transition to hospice. Code Status: DNR Discussed Condition With: RN AND CM AND PT Discharge Planning: PENDING FAMILY DECISIONS ON PEG VS NGT NO IMPROVEMENT WITH SWALLOW TEAM HOSPICE? PALLIATIVE CARE CONSULT
--- NOTE | 2018-06-16 11:45 | XR ---
EXAM DATE: 06/16/2018 11:37 AM EDT AGE/SEX: 72 years / Male INDICATIONS: Dysphagia. CLINICAL DATA: This is the patient's initial encounter. Patient reports that signs and symptoms have been present for 1 week and indicates a pain score of 0/10. MEDICAL/SURGICAL HISTORY: . seizures Craniotomy. [place] [facility] [place]. . FINDINGS: Portable AP view of the chest demonstrates a normal-sized cardiac silhouette. Lungs are inflated. The re are moderate to large bibasilar pleural-parenchymal opacities, increased from the prior study. No pneumothorax is identified. The bones and soft tissues demonstrate no acute abnormality. CONCLUSION: Moderate to large bibasilar opacities that have increased from the prior examination. These likely re present pleural effusions with associated volume loss and/or airspace consolidation. The overall [place] can be seen with pulmonary edema. Electronically signed by: Brenden Reagan MD 06/16/2018 11:43 AM EDT
--- NOTE | 2018-06-16 12:21 | P.PNID ---
Subjective Remarks: Patient is on O2 via nasal cannula. He is very awake and alert. Son is at bedside and communicating with patient in Ukrainian. No complaints. Has NG tube in place. Afebrile. This is a 72-year-old male who was brought to the emergency department after he was found to be having grand mal seizures. The patient was intubated and admitted to the intensive care unit. The patient has increased white blood cell count and fever. Past Medical History: PAST MEDICAL HISTORY: Multiple strokes, seizure disorder, alcoholic liver disease. Allergies/Adverse Reactions: Allergies Unable to Assess Allergy (Unknown, Verified 05/25/18 17:12) Unconscious Objective Vital Signs 06/15/18 16:00 06/15/18 19:16 06/15/18 20:00 Temperature 97.5 F L 98.1 F Pulse Rate 94 H 94 H 90 Respiratory Rate 18 16 16 Blood Pressure 119/66 108/71 Pulse Oximetry 93 L 97 100 06/16/18 00:00 06/16/18 03:33 06/16/18 04:00 Temperature 98.4 F 98.3 F Pulse Rate 100 H 99 H 102 H Respiratory Rate 18 16 18 Blood Pressure 97/57 L 108/65 Pulse Oximetry 98 95 06/16/18 08:00 06/16/18 08:16 06/16/18 08:17 Temperature 98.2 F Pulse Rate 106 H 103 H Respiratory Rate 20 12 Blood Pressure 98/62 L Pulse Oximetry 92 L 97 Intake & Output 06/15/18 06/16/18 06/16/18 18:59 06:59 18:59 Intake Total 1100 / 1100 767 / 767 Balance 1100 / 1100 767 / 767 Weight 55.9 kg Intake: IV 1100 / 1100 767 / 767 D5W/1/2 NS Inj 1,000 ML @ 60 1000 / 1000 667 / 667 mls/hr IV.CONT .[id number] [facility] Rx# :[id number] Azactam Inj 1,000 MG In NS Inj 100 / 100 100 / 100 100 ML @ 200 mls/hr IV.SIG Q8H [facility] Rx#:[id number] Other: # Incontinent Voids 2 4 Date of Last Bowel Movement 06/15/18 06/15/18 # Incontinent Bowel Movements 1 Lab - Chemistry Results 06/14/18 06/14/18 06/14/18 12:04 17:16 23:30 POC Glucose 109 101 80 06/15/18 06/15/18 06/15/18 06:05 12:45 17:14 POC Glucose 83 108 93 06/15/18 06/16/18 22:53 04:51 POC Glucose 111 H 119 H Imaging: ITS Impressions Head CT 05/25/18 15:22 CONCLUSION: Chronic small vessel ischemic and atrophic changes. Head MRI 05/27/18 00:00 CONCLUSION: 1. Atrophy, white matter disease and remote left temporal infarct with encephalomalacia. Abdomen X-Ray 06/08/18 00:00 CONCLUSION: Nasogastric tube tip in the distal stomach. Liver Ultrasound 06/12/18 00:00 CONCLUSION: 1. Mild hepatic heterogeneity with no focal lesion or intrahepatic biliary ductal dilatation. Findings are nonspecific but could represent early cirrhosis. 2. Gallbladder is decompressed but may contain a small amount of intraluminal sludge. 3. Otherwise negative. Chest X-Ray 06/16/18 00:00 CONCLUSION: Moderate to large bibasilar opacities that have increased from the prior examination. These likely represent pleural effusions with associated volume loss and/or airspace consolidation. The overall pattern can be seen with pulmonary edema. Physical Exam: GENERAL: Awake and alert. No acute distress. HEENT: Head is atraumatic. Bitemporal wasting. Extraocular movements appear grossly intact. No icterus. NECK: Supple without adenopathy. LUNGS: Decreased breath sounds. HEART: Regular S1 and S2. No murmurs heard. ABDOMEN: Bowel sounds present. Soft, no tenderness appreciated. EXTREMITIES: No clubbing or cyanosis trace edema of the left hand. SKIN: No diffuse rash. NEUROLOGIC: No gross focal finding. PSYCHIATRIC: Calm and cooperative. Assessment and Plan - Plan IMPRESSION: 1. Pneumonia. 2. Recurring aspiration. Now getting tube feeds. Could be having ongoing aspiration. Chest x-ray has bibasilar opacity. 3. Post seizure. 4. Leukocytosis. White blood cell count down to normal. 5. Acute respiratory failure. Extubated. 6. Urinary tract infection with Klebsiella. Treated. 7. Seizure disorder. 8. Abnormal chest x-ray could also be due to probable CHF. RECOMMENDATIONS: 1. Continue aztreonam until 06/18/2018. 2. Monitor clinical status.
[2018-06-16] MEDS: Lacosamide Inj 50 MG in Sodium Chlor 0.9% Inj 100 ML IV.SIG SCH (12:26)
--- NOTE | 2018-06-16 13:20 | P.PNPAL ---
Reason for Visit Reason for visit: a. To assist with evaluation and management of symptoms including: confusion, dyspnea b. To assist medical decision maker(s) with: better understanding of current medical conditions; weighing benefits/burdens of medical treatment options; making medical treatment decisions. Subjective Subjective/Interval History: Pt remains responsive. Per family patient is answer questions. Patient follow commands but still have some confusion. Family/Friend Interactions: Spoke with son at bedside. Infectious disease at bedside. Neurology progress note on 06/10 noted "i would think he should bounce back to prior functioning will need peg short term however maybe a month or two" That has been review with son. Son understands on the in the way their will be challenges with aspiration, hospitalization. Goals of care review with the son: * Son said yesterday, pt did better on swallow eval. He is hopeful that he will improve today and ask for it to be reassessed. * If pt continues to fail swallow eval, he will reconsider peg tube feedings. * He understand should pt/family decide on no peg tube feedings, comfort measures with hospice is available. * He understand he is at risk of decline. * He is appreciative of the visit. Advance Directives Health Care Surrogate Name and Number: Carlos Alberto Barnett [phone]; Amber Barnett [phone], Objective Vital Signs: Vital Signs 06/15/18 16:00 06/15/18 19:16 06/15/18 20:00 Temperature 97.5 F L 98.1 F Pulse Rate 94 H 94 H 90 Respiratory Rate 18 16 16 Blood Pressure 119/66 108/71 Pulse Oximetry 93 L 97 100 06/16/18 00:00 06/16/18 03:33 06/16/18 04:00 Temperature 98.4 F 98.3 F Pulse Rate 100 H 99 H 102 H Respiratory Rate 18 16 18 Blood Pressure 97/57 L 108/65 Pulse Oximetry 98 95 06/16/18 08:00 06/16/18 08:16 06/16/18 08:17 Temperature 98.2 F Pulse Rate 106 H 103 H Respiratory Rate 20 12 Blood Pressure 98/62 L Pulse Oximetry 92 L 97 Intake & Output 06/15/18 06/16/18 06/16/18 18:59 06:59 18:59 Intake Total 1100 / 1100 767 / 767 Balance 1100 / 1099 767 / 767 Weight 55.9 kg Intake: IV 1100 / 1100 767 / 767 D5W/1/2 NS Inj 1,000 ML @ 60 1000 / 1000 667 / 667 mls/hr IV.CONT .[id number] ALPHONSE Rx# :[id number] Azactam Inj 1,000 MG In NS Inj 100 / 100 100 / 100 100 ML @ 200 mls/hr IV.SIG Q8H ALPHONSE Rx#:[id number] Other: # Incontinent Voids 2 4 Date of Last Bowel Movement 06/15/18 06/15/18 # Incontinent Bowel Movements 1 Physical Exam: CONSTITUTIONAL/GENERAL: cachectic, frail, alert.. SKIN: No jaundice, rashes, or lesions. No wounds seen anteriorly. Skin temperature appropriate. Not diaphoretic. HEAD: Atraumatic. Normocephalic. EYES: PERRL . Fundi not examined. ENT: Nose without bleeding or purulent drainage. CARDIOVASCULAR: tachycardic, irr HR, no gallops, or rubs. RESPIRATORY/CHEST: Patient has less rhonchi. GASTROINTESTINAL: Abdomen soft, non-tender, nondistended. No hepato-splenomegaly , or palpable masses. No guarding. Bowel sounds present. GENITOURINARY: Without palpable bladder distension. Martin catheter in place. MUSCULOSKELETAL: + 2 pittingBLE edema NEUROLOGICAL: opens eyes, tracks. . more alert. follow commands Diagnostic Tests Laboratory: Laboratory Results - last 72 hr 06/13/18 06/13/18 06/13/18 13:02 18:11 23:31 POC Glucose 90 101 105 06/14/18 06/14/18 06/14/18 05:17 12:04 17:16 POC Glucose 109 109 101 06/14/18 06/15/18 06/15/18 23:30 06:05 12:45 POC Glucose 80 83 108 06/15/18 06/15/18 06/16/18 17:14 22:53 04:51 POC Glucose 93 111 H 119 H Result Diagrams: 06/17/18 08:07 06/17/18 08:07 Imaging: ITS Impressions Head CT 05/25/18 15:22 CONCLUSION: Chronic small vessel ischemic and atrophic changes. Head MRI 05/27/18 00:00 CONCLUSION: 1. Atrophy, white matter disease and remote left temporal infarct with encephalomalacia. Abdomen X-Ray 06/08/18 00:00 CONCLUSION: Nasogastric tube tip in the distal stomach. Liver Ultrasound 06/12/18 00:00 CONCLUSION: 1. Mild hepatic heterogeneity with no focal lesion or intrahepatic biliary ductal dilatation. Findings are nonspecific but could represent early cirrhosis. 2. Gallbladder is decompressed but may contain a small amount of intraluminal sludge. 3. Otherwise negative. Chest X-Ray 06/16/18 00:00 CONCLUSION: Moderate to large bibasilar opacities that have increased from the prior examination. These likely represent pleural effusions with associated volume loss and/or airspace consolidation. The overall pattern can be seen with pulmonary edema. Assessment and Plan - Disease Oriented Problem List (1) Generalized seizure (2) Episode of unresponsiveness (3) Alcohol abuse - Symptom Scale (1) Debility 0-10 Scale: Unable to quantify (2) Confusion 0-10 Scale: Unable to quantify (3) Dyspnea 0-10 Scale: Unable to quantify Pertinent Non-Medical Issues: Psychosocial: Retired. 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 . Has 10 kids. Originally from [place], grew up in [place], has been in [place] for 40 y. Lives with one of his daughters. Some of his children are local. Spiritual: Faith non-hinduism, daughter requests afterschool visit Legal: Pt is not capacitated to make medical decisions. It is unclear if he will regain capacity. He has previously designated son Carlos Alberto Barnett as primary HCS and daughter Amber as secondary. Ethical issues impacting care: none identified Important Contacts: Carlos Alberto Barnett, son/primary HCS: [phone] Amber Barnett daughter/alternate HCS: [phone] or [phone] Prognosis: 72 yo male with seizure disorder since head injury 5 y ago, noncompliance with seizure meds, 50 year hx drinking up to or more than a gallon of wine daily admitted 05/25 after having seizure like activity, intubated in the field. EEG showing encephalopathy. He appears cachectic and malnourished. It is unclear if his encephalopathy will improve completely. His poor nutrition status makes full physical recovery unlikely. He is quite likely to continue having complications such as seizures d/t noncompliance, episodes of withdrawal, falls. Code Status: No Code DNR Plan: - LEGAL DECISON MAKER - [facility] completed 02/13/17 Amber Sellers secondary - CODE STATUS- DNR. - GOALS - Spoke with son at bedside. Infectious disease at bedside. Neurology progress note on 06/10 noted "i would think he should bounce back to prior functioning will need peg short term however maybe a month or two" That has been review with son. Son understands on the in the way their will be challenges with aspiration, hospitalization. Goals of care review with the son: * Son said yesterday, pt did better on swallow eval. He is hopeful that he will improve today and ask for it to be reassessed. * If pt continues to fail swallow eval, he will reconsider peg tube. * He understand should pt/family decide on no peg tube feedings, comfort measures with hospice is available. * He understand he is at risk of decline. * He is appreciative of the visit. - SYMPTOMS - * dyspnea - intubated in field. extubated 06/06. sat 99% lung sounds coarse, + wheezes . Has PRN and scheduled duonebs. * Less lethargic today. * confusion - multifactorial, long hx etoh abuse, seizure disorder, head injury. ?withdrawal vs seizures vs both? EEG 05/26 showing encephalopathy, no seizure activity.on my eval he was lethargic- didn't rouse to verbal stimuli or my exam. off sedation, now extubated. Per neurology following. - Palliative care will continue to follow during hospital course as condition evolves, to assist patient/decision-maker with understanding of medical conditions, weighing benefits/burdens of treatment options, for clarification of goals of treatment. Additionally will assist with any symptoms of palliative concern Attestation Attestation: To help prompt me to consider important information that might be impacting today's encounter and assessment, information from prior notes written by myself or my colleagues may have been "brought forward" into today's note. My signature on this note, however, is an attestation that I personally performed the exam, history, and/or decision-making noted today, and, unless otherwise indicated, the interactions with patient, family, and staff as well as the review of records all occurred today. I also attest that the listed assessment and stated plan reflect my best clinical judgment today based on the combination of historical information, prior notes, and today's exam/ interactions. When time spent is documented, it refers only to time spent today by the signer, or if indicated, combined time spent today by collaborating physician/nurse practitioner.
[2018-06-17] MEDS: Insulin NovoLIN Regular Correctional Sugar Inj SQ SCH ×4 (02:41→19:53)
[2018-06-17] MEDS: Oral Hygiene Kit OROPHARYNG SCH ×4 (02:42→19:52)
[2018-06-17] MEDS: Lacosamide Inj 50 MG in Sodium Chlor 0.9% Inj 100 ML IV.SIG SCH (04:08)
[2018-06-17] MEDS: Senna/Docusate Sodium 8.6/50 MG Tablet PO SCH ×2 (08:00→23:05)
[2018-06-17 08:44] LABS: Baso # (Auto) 0.1 th/mm3 (0.0-0.2); Baso % (Auto) 0.4 % (0.0-2.0); Eos # (Auto) 0.2 th/mm3 (0.0-0.4); Eos % (Auto) 0.9 % (0.0-4.0); Hematocrit 29.2 % (39.0-51.0); Hemoglobin 9.4 gm/dL (13.0-17.0); Mean Corpuscular HGB Conc 32.2 % (32.0-36.0); Mean Corpuscular Hemoglobin 29.5 pg (27.0-34.0); Mean Corpuscular Volume 91.9 fL (80.0-100.0); Mean Platelet Volume 7.1 fL (7.0-11.0); Mono # (Auto) 2.3 th/mm3 (0.0-0.9); Mono % (Auto) 12.8 % (0.0-8.0); Neut # (Auto) 13.5 th/mm3 (1.8-7.7); Neut % (Auto) 74.9 % (16.0-70.0); Platelet Count 728 th/mm3 (150-450); Red Blood Count 3.18 mil/mm3 (4.50-5.90); Red Cell Distribution Width 18.6 % (11.6-17.2); White Blood Count 18.1 th/mm3 (4.0-11.0)
[2018-06-17 09:11] LABS: Albumin 1.4 g/dL (3.4-5.0); Anion Gap 8 meq/L (5-15); Aspartate Aminotransferase 74 U/L (15-37); Blood Urea Nitrogen 7 mg/dL (7-18); Calcium 8.1 mg/dL (8.5-10.1); Carbon Dioxide 24.8 meq/L (21.0-32.0); Chloride 102 meq/L (98-107); Glomerular Filtration Rate Greater Than 89 mL/min (>89); Glucose,Random 100 mg/dL (74-106); Magnesium 1.7 mg/dL (1.5-2.5); Potassium 4.5 meq/L (3.5-5.1); Sodium 135 meq/L (136-145)
[2018-06-17 09:13] LABS: Alanine Aminotransferase 21 U/L (12-78); Phosphorus 3.3 mg/dL (2.5-4.9)
[2018-06-17 09:15] LABS: Alkaline Phosphatase 326 U/L (45-117); Total Protein 6.1 g/dL (6.4-8.2)
[2018-06-17 09:30] LABS: Eosinophils 1 % (0-4); Lymphocytes 8 % (9-44); Monocytes 21 % (0-8); Myelocytes 1 % (0-0); Platelet Morphology Normal (Normal)
[2018-06-17] MEDS ORDERED: Lacosamide Inj 100 MG in Sodium Chlor 0.9% Inj 100 ML IV.SIG ONE ×2 (09:30→15:00)
--- NOTE | 2018-06-17 10:44 | P.PNIM ---
Subjective Interval history: DW RN NGT IS FURTHER PULLED OUT WILL GET CHEST XRAY FOR PLACEMENT MAY NEED TO BE REINSERTED PRIOR TO USING AGAIN 06-17 NGT IS WORKING FAILED SWALLOW EVAL AGAIN NO IMPROVEMENT WILL NEED PEG OR HOSPICE FAMILY NEEDS TO MAKE DECISIONS Physical Exam Vital signs: Vital Signs 06/16/18 12:00 06/16/18 15:55 06/16/18 19:56 Temperature 98.2 F 98.0 F Pulse Rate 99 H 104 H 104 H Respiratory Rate 10 14 18 Blood Pressure 110/67 115/86 Pulse Oximetry 98 96 06/16/18 20:00 06/17/18 06:25 06/17/18 08:00 Temperature 97.9 F 98.8 F Pulse Rate 101 H 100 H Respiratory Rate 21 Blood Pressure 111/63 133/68 Pulse Oximetry 97 97 97 Intake & Output 06/16/18 06/17/18 06/17/18 18:59 06:59 18:59 Intake Total 100 / 100 2056 105 / 105 Output Total 200 / 200 0 / 0 Balance -100 / -100 2056 105 / 105 Intake: IV 100 / 100 305 / 305 105 / 105 D5W/1/2 NS Inj 1,000 ML @ 60 0 / 0 mls/hr IV.CONT .[id number] ALPHONSE Rx# :[id number] Azactam Inj 1,000 MG In NS Inj 100 / 100 200 / 200 100 ML @ 200 mls/hr IV.SIG Q8H ALPHONSE Rx#:[id number] Vimpat Inj 50 MG In NS Inj 100 105 / 105 105 / 105 ML @ 105 mls/hr IV.SIG Q12H ALPHONSE Rx#:[id number] Oral 0 / 0 Tube Feeding 821 / 821 Tube Irrigant 60 / 60 Water Bolus Amount 200 / 200 Other 671 / 671 Output: Urine 200 / 200 Urine/Stool Mix 0 / 0 Other: # Incontinent Voids 2 5 Date of Last Bowel Movement 06/15/18 06/16/18 # Incontinent Bowel Movements 1 Narrative: GENERAL: This is a thin male, in no apparent distress laying in bed with simple mask. NG-tube in place CARDIOVASCULAR: Regular rate and rhythm RESPIRATORY: Bilateral rhonchi GASTROINTESTINAL: Abdomen soft, non-tender, nondistended. Normal active bowel sounds MUSCULOSKELETAL: Extremities without clubbing, cyanosis, trace edema NEURO: Sleepy, opens eyes with voice however confused, did not follow commands. Not able to assess insight and judgment not able to assess mood or behavior Nonverbal at this time - Urinary Catheter Management Indwelling Urethral Catheter Cath placed during this visit: yes, but has since been removed by the nurse Reason for continuing: Not indwelling catheter Insertion date: 05/25/18 Insertion time: 15:00 Removal date: 05/26/18 Removal time: 12:00 Straight Cath placed during this visit: yes Reason for continuing: Not indwelling catheter Insertion date: 06/05/18 Insertion time: 00:20 Condom Cath placed during this visit: no Reason for continuing: Not indwelling catheter Results - Labs CBC & Chem 7: 06/17/18 08:07 06/17/18 08:07 Laboratory Results - last 24 hr 06/16/18 06/16/18 06/16/18 13:06 18:01 21:45 WBC RBC Hgb Hct MCV MCH MCHC RDW Plt Count MPV Prelim Diff (Auto) Neut % (Auto) Lymph % (Auto) [place] % (Auto) Eos % (Auto) Baso % (Auto) Neut # (Auto) Lymph # (Auto) [place] # (Auto) Eos # (Auto) Baso # (Auto) WBC Differential Seg Neuts % (Manual) Band Neuts % (Manual) Lymphocytes % (Manual) Monocytes % (Manual) Eosinophils % (Manual) Myelocytes % (Man) Abs Neuts (Manual) Differential Comment Platelet Estimate Platelet Morphology Sodium Potassium Chloride Carbon Dioxide Anion Gap BUN Creatinine Estimated GFR POC Glucose 96 105 116 H Random Glucose Calcium Phosphorus Magnesium Total Bilirubin AST ALT Alkaline Phosphatase Total Protein Albumin 06/16/18 06/17/18 06/17/18 23:54 06:49 08:07 WBC 18.1 H RBC 3.18 L Hgb 9.4 L Hct 29.2 L MCV 91.9 MCH 29.5 MCHC 32.2 RDW 18.6 H Plt Count 728 H MPV 7.1 Prelim Diff (Auto) Slide review pending Neut % (Auto) 74.9 H Lymph % (Auto) 11.0 [place] % (Auto) 12.8 H Eos % (Auto) 0.9 Baso % (Auto) 0.4 Neut # (Auto) 13.5 H Lymph # (Auto) 2.0 [place] # (Auto) 2.3 H Eos # (Auto) 0.2 Baso # (Auto) 0.1 WBC Differential Manual diff final Seg Neuts % (Manual) 60 Band Neuts % (Manual) 9 H Lymphocytes % (Manual) 8 L Monocytes % (Manual) 21 H Eosinophils % (Manual) 1 Myelocytes % (Man) 1 H Abs Neuts (Manual) 12.7 H Differential Comment . Platelet Estimate High H Platelet Morphology Normal Sodium Potassium Chloride Carbon Dioxide Anion Gap BUN Creatinine Estimated GFR POC Glucose 137 H 114 H Random Glucose Calcium Phosphorus Magnesium Total Bilirubin AST ALT Alkaline Phosphatase Total Protein Albumin 06/17/18 08:07 WBC RBC Hgb Hct MCV MCH MCHC RDW Plt Count MPV Prelim Diff (Auto) Neut % (Auto) Lymph % (Auto) [place] % (Auto) Eos % (Auto) Baso % (Auto) Neut # (Auto) Lymph # (Auto) [place] # (Auto) Eos # (Auto) Baso # (Auto) WBC Differential Seg Neuts % (Manual) Band Neuts % (Manual) Lymphocytes % (Manual) Monocytes % (Manual) Eosinophils % (Manual) Myelocytes % (Man) Abs Neuts (Manual) Differential Comment Platelet Estimate Platelet Morphology Sodium 135 L Potassium 4.5 Chloride 102 Carbon Dioxide 24.8 Anion Gap 8 BUN 7 Creatinine 0.40 L Estimated GFR Greater than 89 POC Glucose Random Glucose 100 Calcium 8.1 L Phosphorus 3.3 Magnesium 1.7 Total Bilirubin 0.4 AST 74 H ALT 21 Alkaline Phosphatase 326 H Total Protein 6.1 L Albumin 1.4 L - Imaging Impressions Chest X-Ray 06/16/18 00:00 CONCLUSION: Moderate to large bibasilar opacities that have increased from the prior examination. These likely represent pleural effusions with associated volume loss and/or airspace consolidation. The overall pattern can be seen with pulmonary edema. Assessment and Plan - Plan Alcohol dependence Alcohol withdrawal Seizure disorder with active seizures- improving. Medication noncompliance Acute combined toxic and metabolic encephalopathy-persists. Frequent neurochecks with continued confusion which persists. Patient is less agitated today and will attempt swallow evaluation.. Continue with Keppra per Neuro EEG 05/26: negative for ictal activity. generalized slowing. Repeat EEG ordered on 05/29 in view of tremors noted in right upper extremity. Appreciate neurology consultation and recommendations. On thiamine and multivitamins Head CT negative for acute disease 05/25. MRI brain: Remote left temporal infarct, atrophy 05/27 Repeat ammonia level not elevated. Neurology recommended starting trial of Adderall Patient's mental status waxes and wanes however has not had much improvement. Acute hypoxic and hypercarbic respiratory failure Head of bed elevated Continue with oxygen support and keep sats >92% Bronchodilators, Severe dysphasia and high risk for aspirationcontinue n.p.o. and speech therapy ; patient reaspirated 06/12 and pulled NG tube out, patient failed a swallow evaluation. Family does not want PEG tube. Will attempt to reinsert NG tube today IV fluids with D5 half-normal saline; may need to consider PPN although this is not a good long-term solution if unable to insert NG tube.. NGT SEEMS TO BE FURTHER OUT THAN IT SHOULD BE WILL CHECK CHEST XRAY- GETTING TUBE FEEDS TOLERATING BUT NO IMPROVEMENT IN HIS SWALLOWING STILL FAILING SWALLOW EVALUATIONS WITH SPEECH urinary retention - no indication for tubbs. straight cath q6h. Monitor renal function. I/O's, electrolytes replacement per protocol Hypernatremia Change Free water increased to 250 every 6 hour due to hypernatremia, this has improved when patient was able to have NG tube. Alcoholic cirrhosis Acute protein calorie malnutritionsevere Severe hypokalemia- resolving.Replete today Acute intravascular volume depletion- resolving. Hyponatremia- resolved and now with hypernatremia Dehydration- resolving. ICU electrolyte protocol NPO by speech, continue tube feeds - Jevity 1.5 with goal rate 60ml/hr once NG tube can be replaced Previous failed swallow evaluation with high aspiration risk yesterday, patient consistently has failed swallow evaluation. NGT VS PEG VS HOSPICE Healthcare acquired pneumonia with aspiration pneumonia UTI noted. Urine cx: Kleb pneumonia on 05/29, Continue Aztreonam and Vanco per ID, day number #8 06/04, Urine, Blood culture, sputum cx: NGTD ID is following. Leukocytosis trending down Anemia, chronic likely due to history of cirrhosis and chronic disease monitor CBC, s/p transfuse 2u PRBC 06/04. Hyperglycemia of critical illness and now hypoglycemia due to n.p.o. status will start D5W -- SSI Prophylaxis: GI Prophylaxis Pepcid DVT Prophylaxis -- SCDs Lovenox held for anemia requiring blood transfusion Lines: Peripheral IVs Palliative care is following This is a complex case with patient having recurrent aspiration with persistent metabolic and alcoholic encephalopathy. Patient is a DNR status Discussed with son at bedside who wants continue medical treatment up to DNR status, if patient does continue to decompensate will transition to hospice. Discharge Planning: May need long-term placement if clinically improves. CANNOT PLACE WITH NGT IN PLACE If continues to decompensate will need to transition to hospice. Code Status: FULL CODE Discussed Condition With: RN AND PT AND CM Discharge Planning: PENDING FAMILY DECISIONS ON PEG VS NGT NO IMPROVEMENT WITH SWALLOW TEAM HOSPICE? PALLIATIVE CARE CONSULT
--- NOTE | 2018-06-17 12:57 | P.PNID ---
Subjective Remarks: Patient is on O2 via nasal cannula. Very lethargic. Not following commands. Has NG tube in place. receiving tube tube feeding currently. Afebrile. 72-year-old male who was brought to the emergency department after he was found to be having grand mal seizures. The patient was intubated and admitted to the intensive care unit. The patient has increased white blood cell count and fever. Past Medical History: PAST MEDICAL HISTORY: Multiple strokes, seizure disorder, alcoholic liver disease. Allergies/Adverse Reactions: Allergies Unable to Assess Allergy (Unknown, Verified 05/25/18 17:12) Unconscious Objective Vital Signs 06/16/18 15:55 06/16/18 19:56 06/16/18 20:00 Temperature 98.0 F 97.9 F Pulse Rate 104 H 104 H 101 H Respiratory Rate 18 Blood Pressure 115/86 111/63 Pulse Oximetry 96 97 06/17/18 06:25 06/17/18 08:00 06/17/18 12:00 Temperature 98.8 F 98.5 F Pulse Rate 100 H 103 H Respiratory Rate 21 20 Blood Pressure 133/68 143/75 H Pulse Oximetry 97 97 97 06/17/18 12:30 Temperature Pulse Rate Respiratory Rate Blood Pressure Pulse Oximetry 96 Intake & Output 06/16/18 06/17/18 06/17/18 18:59 06:59 18:59 Intake Total 100 / 100 2056 105 / 105 Output Total 200 / 200 0 / 0 Balance -100 / -100 2056 105 / 105 Intake: IV 100 / 100 305 / 305 105 / 105 D5W/1/2 NS Inj 1,000 ML @ 60 0 / 0 mls/hr IV.CONT .[id number] ALPHONSE Rx# :[id number] Azactam Inj 1,000 MG In NS Inj 100 / 100 200 / 200 100 ML @ 200 mls/hr IV.SIG Q8H ALPHONSE Rx#:[id number] Vimpat Inj 50 MG In NS Inj 100 105 / 105 105 / 105 ML @ 105 mls/hr IV.SIG Q12H ALPHONSE Rx#:[id number] Oral 0 / 0 Tube Feeding 821 / 821 Tube Irrigant 60 / 60 Water Bolus Amount 200 / 200 Other 671 / 671 Output: Urine 200 / 200 Urine/Stool Mix 0 / 0 Other: # Incontinent Voids 2 5 Date of Last Bowel Movement 06/15/18 06/16/18 # Incontinent Bowel Movements 1 Lab - Hematology Results 06/17/18 08:07 WBC 18.1 H RBC 3.18 L Hgb 9.4 L Hct 29.2 L MCV 91.9 MCH 29.5 MCHC 32.2 RDW 18.6 H Plt Count 728 H MPV 7.1 Prelim Diff (Auto) Slide review pending Neut % (Auto) 74.9 H Lymph % (Auto) 11.0 [place] % (Auto) 12.8 H Eos % (Auto) 0.9 Baso % (Auto) 0.4 Neut # (Auto) 13.5 H Lymph # (Auto) 2.0 [place] # (Auto) 2.3 H Eos # (Auto) 0.2 Baso # (Auto) 0.1 WBC Differential Manual diff final Seg Neuts % (Manual) 60 Band Neuts % (Manual) 9 H Lymphocytes % (Manual) 8 L Monocytes % (Manual) 21 H Eosinophils % (Manual) 1 Myelocytes % (Man) 1 H Abs Neuts (Manual) 12.7 H Differential Comment . Platelet Estimate High H Platelet Morphology Normal Lab - Chemistry Results 06/15/18 06/15/18 06/16/18 17:14 22:53 04:51 Sodium Potassium Chloride Carbon Dioxide Anion Gap BUN Creatinine Estimated GFR POC Glucose 93 111 H 119 H Random Glucose Calcium Phosphorus Magnesium Total Bilirubin AST ALT Alkaline Phosphatase Total Protein Albumin 06/16/18 06/16/18 06/16/18 13:06 18:01 21:45 Sodium Potassium Chloride Carbon Dioxide Anion Gap BUN Creatinine Estimated GFR POC Glucose 96 105 116 H Random Glucose Calcium Phosphorus Magnesium Total Bilirubin AST ALT Alkaline Phosphatase Total Protein Albumin 06/16/18 06/17/18 06/17/18 23:54 06:49 08:07 Sodium 135 L Potassium 4.5 Chloride 102 Carbon Dioxide 24.8 Anion Gap 8 BUN 7 Creatinine 0.40 L Estimated GFR Greater than 89 POC Glucose 137 H 114 H Random Glucose 100 Calcium 8.1 L Phosphorus 3.3 Magnesium 1.7 Total Bilirubin 0.4 AST 74 H ALT 21 Alkaline Phosphatase 326 H Total Protein 6.1 L Albumin 1.4 L 06/17/18 12:15 Sodium Potassium Chloride Carbon Dioxide Anion Gap BUN Creatinine Estimated GFR POC Glucose 129 H Random Glucose Calcium Phosphorus Magnesium Total Bilirubin AST ALT Alkaline Phosphatase Total Protein Albumin Imaging: ITS Impressions Head CT 05/25/18 15:22 CONCLUSION: Chronic small vessel ischemic and atrophic changes. Head MRI 05/27/18 00:00 CONCLUSION: 1. Atrophy, white matter disease and remote left temporal infarct with encephalomalacia. Abdomen X-Ray 06/08/18 00:00 CONCLUSION: Nasogastric tube tip in the distal stomach. Liver Ultrasound 06/12/18 00:00 CONCLUSION: 1. Mild hepatic heterogeneity with no focal lesion or intrahepatic biliary ductal dilatation. Findings are nonspecific but could represent early cirrhosis. 2. Gallbladder is decompressed but may contain a small amount of intraluminal sludge. 3. Otherwise negative. Chest X-Ray 06/16/18 00:00 CONCLUSION: Moderate to large bibasilar opacities that have increased from the prior examination. These likely represent pleural effusions with associated volume loss and/or airspace consolidation. The overall pattern can be seen with pulmonary edema. Physical Exam: GENERAL: Awake and alert. No acute distress. HEENT: Head is atraumatic. Bitemporal wasting. Extraocular movements appear grossly intact. No icterus. NECK: Supple without adenopathy. LUNGS: Rhonchi at the left base. mild wheezing at the left base. HEART: Regular S1 and S2. No murmurs rubs or gallops. ABDOMEN: Bowel sounds present. Soft, no tenderness appreciated. EXTREMITIES: No clubbing or cyanosis trace edema of the left hand. SKIN: No diffuse rash. NEUROLOGIC: No gross focal finding. PSYCHIATRIC: Calm and cooperative. Assessment and Plan - Plan IMPRESSION: 1. Pneumonia. 2. Recurring aspiration. Now getting tube feeds. Could be having ongoing aspiration. 3. Post seizure. 4. Leukocytosis. WB is elevated. 5. Acute respiratory failure. Extubated. 6. Urinary tract infection with Klebsiella. Treated. 7. Seizure disorder. RECOMMENDATIONS: 1. Continue aztreonam until 06/18/2018 End date added. 2. Monitor clinical status.
--- NOTE | 2018-06-17 14:11 | P.PNPAL ---
Reason for Visit Reason for visit: a. To assist with evaluation and management of symptoms including: confusion, dyspnea b. To assist medical decision maker(s) with: better understanding of current medical conditions; weighing benefits/burdens of medical treatment options; making medical treatment decisions. Subjective Subjective/Interval History: Pt remains getting an EEG. Patient had seizure activity. Currently on 4L. confused Family/Friend Interactions: spoke with pt's son and updated him on current pt's situation. EEG just completed. He understands pt continue to be at risk of aspiration, recurrent sz, lethargy, infection. He maintains DNR/DNI status. He will speak with his family, in the meantime, continue aggressive care short of resuccetation. He will speak with family about peg, and monitor pt's clinical situation. Advance Directives Health Care Surrogate Name and Number: Carlos Alberto Barnett [phone]; Amber Barnett [phone], Objective Vital Signs: Vital Signs 06/16/18 15:55 06/16/18 19:56 06/16/18 20:00 Temperature 98.0 F 97.9 F Pulse Rate 104 H 104 H 101 H Respiratory Rate 18 18 Blood Pressure 115/86 111/63 Pulse Oximetry 96 97 06/17/18 06:25 06/17/18 08:00 06/17/18 12:00 Temperature 98.8 F 98.5 F Pulse Rate 100 H 103 H Respiratory Rate 21 20 Blood Pressure 133/68 143/75 H Pulse Oximetry 97 97 97 06/17/18 12:30 Temperature Pulse Rate Respiratory Rate Blood Pressure Pulse Oximetry 96 Intake & Output 06/16/18 06/17/18 06/17/18 18:59 06:59 18:59 Intake Total 100 / 100 2056 105 / 105 Output Total 200 / 200 0 / 0 Balance -100 / -100 2056 105 / 105 Intake: IV 100 / 100 305 / 305 105 / 105 D5W/1/2 NS Inj 1,000 ML @ 60 0 / 0 mls/hr IV.CONT .[id number] [facility] Rx# :[id number] Azactam Inj 1,000 MG In NS Inj 100 / 100 200 / 200 100 ML @ 200 mls/hr IV.SIG Q8H [facility] Rx#:[id number] Vimpat Inj 50 MG In NS Inj 100 105 / 105 105 / 105 ML @ 105 mls/hr IV.SIG Q12H [facility] Rx#:[id number] Oral 0 / 0 Tube Feeding 821 / 821 Tube Irrigant 60 / 60 Water Bolus Amount 200 / 200 Other 671 / 671 Output: Urine 200 / 200 Urine/Stool Mix 0 / 0 Other: # Incontinent Voids 2 5 Date of Last Bowel Movement 06/15/18 06/16/18 # Incontinent Bowel Movements 1 Physical Exam: CONSTITUTIONAL/GENERAL: cachectic, frail, more lethargic. SKIN: No jaundice, rashes, or lesions. No wounds seen anteriorly. Skin temperature appropriate. Not diaphoretic. HEAD: Atraumatic. Normocephalic. EYES: PERRL . Fundi not examined. ENT: Nose without bleeding or purulent drainage. CARDIOVASCULAR: tachycardic, irr HR, no gallops, or rubs. RESPIRATORY/CHEST: Faitn rhonchi bilat GASTROINTESTINAL: Abdomen soft, non-tender, nondistended. No hepato-splenomegaly , or palpable masses. No guarding. Bowel sounds present. GENITOURINARY: Without palpable bladder distension. Martin catheter in place. MUSCULOSKELETAL: + 2 pittingBLE edema NEUROLOGICAL: opens eyes, could not follow commands on my visit. Diagnostic Tests Laboratory: Laboratory Results - last 72 hr 06/14/18 06/14/18 06/15/18 17:16 23:30 06:05 WBC RBC Hgb Hct MCV MCH MCHC RDW Plt Count MPV Prelim Diff (Auto) Neut % (Auto) Lymph % (Auto) [place] % (Auto) Eos % (Auto) Baso % (Auto) Neut # (Auto) Lymph # (Auto) [place] # (Auto) Eos # (Auto) Baso # (Auto) WBC Differential Seg Neuts % (Manual) Band Neuts % (Manual) Lymphocytes % (Manual) Monocytes % (Manual) Eosinophils % (Manual) Myelocytes % (Man) Abs Neuts (Manual) Differential Comment Platelet Estimate Platelet Morphology Sodium Potassium Chloride Carbon Dioxide Anion Gap BUN Creatinine Estimated GFR POC Glucose 101 80 83 Random Glucose Calcium Phosphorus Magnesium Total Bilirubin AST ALT Alkaline Phosphatase Total Protein Albumin 06/15/18 06/15/18 06/15/18 12:45 17:14 22:53 WBC RBC Hgb Hct MCV MCH MCHC RDW Plt Count MPV Prelim Diff (Auto) Neut % (Auto) Lymph % (Auto) [place] % (Auto) Eos % (Auto) Baso % (Auto) Neut # (Auto) Lymph # (Auto) [place] # (Auto) Eos # (Auto) Baso # (Auto) WBC Differential Seg Neuts % (Manual) Band Neuts % (Manual) Lymphocytes % (Manual) Monocytes % (Manual) Eosinophils % (Manual) Myelocytes % (Man) Abs Neuts (Manual) Differential Comment Platelet Estimate Platelet Morphology Sodium Potassium Chloride Carbon Dioxide Anion Gap BUN Creatinine Estimated GFR POC Glucose 108 93 111 H Random Glucose Calcium Phosphorus Magnesium Total Bilirubin AST ALT Alkaline Phosphatase Total Protein Albumin 06/16/18 06/16/18 06/16/18 04:51 13:06 18:01 WBC RBC Hgb Hct MCV MCH MCHC RDW Plt Count MPV Prelim Diff (Auto) Neut % (Auto) Lymph % (Auto) [place] % (Auto) Eos % (Auto) Baso % (Auto) Neut # (Auto) Lymph # (Auto) [place] # (Auto) Eos # (Auto) Baso # (Auto) WBC Differential Seg Neuts % (Manual) Band Neuts % (Manual) Lymphocytes % (Manual) Monocytes % (Manual) Eosinophils % (Manual) Myelocytes % (Man) Abs Neuts (Manual) Differential Comment Platelet Estimate Platelet Morphology Sodium Potassium Chloride Carbon Dioxide Anion Gap BUN Creatinine Estimated GFR POC Glucose 119 H 96 105 Random Glucose Calcium Phosphorus Magnesium Total Bilirubin AST ALT Alkaline Phosphatase Total Protein Albumin 06/16/18 06/16/18 06/17/18 21:45 23:54 06:49 WBC RBC Hgb Hct MCV MCH MCHC RDW Plt Count MPV Prelim Diff (Auto) Neut % (Auto) Lymph % (Auto) [place] % (Auto) Eos % (Auto) Baso % (Auto) Neut # (Auto) Lymph # (Auto) [place] # (Auto) Eos # (Auto) Baso # (Auto) WBC Differential Seg Neuts % (Manual) Band Neuts % (Manual) Lymphocytes % (Manual) Monocytes % (Manual) Eosinophils % (Manual) Myelocytes % (Man) Abs Neuts (Manual) Differential Comment Platelet Estimate Platelet Morphology Sodium Potassium Chloride Carbon Dioxide Anion Gap BUN Creatinine Estimated GFR POC Glucose 116 H 137 H 114 H Random Glucose Calcium Phosphorus Magnesium Total Bilirubin AST ALT Alkaline Phosphatase Total Protein Albumin 06/17/18 06/17/18 06/17/18 08:07 08:07 12:15 WBC 18.1 H RBC 3.18 L Hgb 9.4 L Hct 29.2 L MCV 91.9 MCH 29.5 MCHC 32.2 RDW 18.6 H Plt Count 728 H MPV 7.1 Prelim Diff (Auto) Slide review pending Neut % (Auto) 74.9 H Lymph % (Auto) 11.0 [place] % (Auto) 12.8 H Eos % (Auto) 0.9 Baso % (Auto) 0.4 Neut # (Auto) 13.5 H Lymph # (Auto) 2.0 [place] # (Auto) 2.3 H Eos # (Auto) 0.2 Baso # (Auto) 0.1 WBC Differential Manual diff final Seg Neuts % (Manual) 60 Band Neuts % (Manual) 9 H Lymphocytes % (Manual) 8 L Monocytes % (Manual) 21 H Eosinophils % (Manual) 1 Myelocytes % (Man) 1 H Abs Neuts (Manual) 12.7 H Differential Comment . 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 . Has 10 kids. Originally from [place], grew up in [place], has been in [place] for 40 y. Lives with one of his daughters. Some of his children are local. Spiritual: [employer]ology non-restorationism, daughter requests wood flooring specialist visit Legal: Pt is not capacitated to make medical decisions. It is unclear if he will regain capacity. He has previously designated son Carlos Alberto Barnett as primary HCS and daughter Amber as secondary. Ethical issues impacting care: none identified Important Contacts: Carlos Alberto Barnett, son/primary HCS: [phone] Amber Barnett, daughter/alternate HCS: [phone] or [phone] Prognosis: 72 yo male with seizure disorder since head injury 5 y ago, noncompliance with seizure meds, 50 year hx drinking up to or more than a gallon of wine daily admitted 05/25 after having seizure like activity, intubated in the field. EEG showing encephalopathy. He appears cachectic and malnourished. It is unclear if his encephalopathy will improve completely. His poor nutrition status makes full physical recovery unlikely. He is quite likely to continue having complications such as seizures d/t noncompliance, episodes of withdrawal, falls. Code Status: No Code DNR Plan: - LEGAL DECISON MAKER - HCS completed 02/13/17 Amber Sellers secondary - CODE STATUS- DNR. - GOALS - Palliative care had met with son multiple times. Neurology progress note on 06/10 noted "i would think he should bounce back to prior functioning will need peg short term however maybe a month or two" That has been review with son, this was reviewed again today. Son understands on the in the way their will be challenges with aspiration, hospitalization, recurrent seizures. Goals of care review with the son today (06/17): spoke with pt's son and updated him on current pt's situation. EEG just completed. He understands pt continue to be at risk of aspiration, recurrent sz, lethargy, infection. He maintains DNR/DNI status. He will speak with his family, in the meantime, goals aggressive care short of resuccetation. He will speak with family about peg, and monitor pt's clinical situation. - SYMPTOMS - * dyspnea - Aspiration risk. Family elected and reaffirm that pt would not want to undergo Intubation again. DNR/DNI Has PRN and scheduled duonebs. * confusion - multifactorial, long hx etoh abuse, seizure disorder, head injury. ?withdrawal vs seizures vs both? EEG 05/26 showing encephalopathy. Pt on ritalin, and recently keppra dosage decrease as pt had been more confused and lethargic. Since it has decrease, he has been more alert, but today 06/17 had seizure like activity. EEG today (06/17)is pending. Post ictal. - Palliative care will continue to follow during hospital course as condition evolves, to assist patient/decision-maker with understanding of medical conditions, weighing benefits/burdens of treatment options, for clarification of goals of treatment. Additionally will assist with any symptoms of palliative concern Attestation Attestation: To help prompt me to consider important information that might be impacting today's encounter and assessment, information from prior notes written by myself or my colleagues may have been "brought forward" into today's note. My signature on this note, however, is an attestation that I personally performed the exam, history, and/or decision-making noted today, and, unless otherwise indicated, the interactions with patient, family, and staff as well as the review of records all occurred today. I also attest that the listed assessment and stated plan reflect my best clinical judgment today based on the combination of historical information, prior notes, and today's exam/ interactions. When time spent is documented, it refers only to time spent today by the signer, or if indicated, combined time spent today by collaborating physician/nurse practitioner.
[2018-06-17] MEDS: Chlorhexidine 0.12% Oral Kit 15 ML UDC OROPHARYNG SCH ×2 (14:44→23:04)
[2018-06-17] MEDS ORDERED: Lacosamide Inj 100 MG in Sodium Chlor 0.9% Inj 100 ML IV.SIG SCH (22:00)
--- NOTE | 2018-06-17 22:35 | MG ---
cc: Missael Walsh MD ELECTROENCEPHALOGRAM RECORD NUMBER: [id number] DESCRIPTION: Polymorphic delta activity occurring at 50 microvolts with high-frequency frontal artifact and some rhythmic delta activity and left posterior sharp transients. Left posterior sharp complexes and polyphasic polyspike occurring in variable frequency. Good EEG variability reactivity. Eye movement artifact. INTERPRETATION: Pseudoperiodic left posterior sharp discharges. Clinical correlation. MD SATNAM Huff/marycruz , 09:36 PM , 09:42 PM
[2018-06-17] MEDS: Dextrose 5%/NaCl 0.45% Inj 1,000 ML IV.CONT SCH (23:01)
[2018-06-18] MEDS: LEVETIRACETAM IV.SIG SCH ×3 (01:48→20:28)
[2018-06-18] MEDS: SODIUM CHLOR 0.9% IV.SIG SCH ×3 (01:48→20:28)
[2018-06-18] MEDS: Lacosamide Inj 200 MG in Sodium Chlor 0.9% Inj 100 ML IV.SIG SCH ×3 (01:48→21:40)
[2018-06-18] MEDS: Oral Hygiene Kit OROPHARYNG SCH ×4 (01:49→17:45)
[2018-06-18] MEDS: Insulin NovoLIN Regular Correctional Sugar Inj SQ SCH ×4 (04:13→17:45)
[2018-06-18 05:37] LABS: Baso # (Auto) 0.3 th/mm3 (0.0-0.2); Baso % (Auto) 2.7 % (0.0-2.0); Eos # (Auto) 0.2 th/mm3 (0.0-0.4); Eos % (Auto) 2.3 % (0.0-4.0); Hematocrit 26.5 % (39.0-51.0); Hemoglobin 8.9 gm/dL (13.0-17.0); Lymph # (Auto) 1.7 th/mm3 (1.0-4.8); Lymph % (Auto) 17.7 % (9.0-44.0); Mean Corpuscular HGB Conc 33.6 % (32.0-36.0); Mean Corpuscular Hemoglobin 30.8 pg (27.0-34.0); Mean Corpuscular Volume 91.6 fL (80.0-100.0); Mean Platelet Volume 7.8 fL (7.0-11.0); Mono # (Auto) 1.3 th/mm3 (0.0-0.9); Mono % (Auto) 13.6 % (0.0-8.0); Neut # (Auto) 6.3 th/mm3 (1.8-7.7); Neut % (Auto) 63.7 % (16.0-70.0); Platelet Count 475 th/mm3 (150-450); Red Blood Count 2.89 mil/mm3 (4.50-5.90); White Blood Count 9.8 th/mm3 (4.0-11.0)
[2018-06-18 05:59] LABS: Alanine Aminotransferase 20 U/L (12-78); Albumin 1.3 g/dL (3.4-5.0); Anion Gap 5 meq/L (5-15); Aspartate Aminotransferase 52 U/L (15-37); Blood Urea Nitrogen 8 mg/dL (7-18); Calcium 8.3 mg/dL (8.5-10.1); Chloride 106 meq/L (98-107); Glomerular Filtration Rate Greater Than 89 mL/min (>89); Glucose,Random 77 mg/dL (74-106); Magnesium 1.8 mg/dL (1.5-2.5); Phosphorus 3.7 mg/dL (2.5-4.9); Potassium 4.3 meq/L (3.5-5.1); Sodium 137 meq/L (136-145)
[2018-06-18 06:02] LABS: Alkaline Phosphatase 258 U/L (45-117); Total Protein 5.8 g/dL (6.4-8.2)
[2018-06-18] MEDS: Chlorhexidine 0.12% Oral Kit 15 ML UDC OROPHARYNG SCH ×2 (07:42→22:39)
[2018-06-18 07:47] LABS: Lymphocytes 12 % (9-44); Monocytes 21 % (0-8); Platelet Morphology Normal (Normal)
[2018-06-18] MEDS: Dextrose 5%/NaCl 0.45% Inj 1,000 ML IV.CONT SCH (08:00)
[2018-06-18] MEDS: Senna/Docusate Sodium 8.6/50 MG Tablet PO SCH ×2 (08:02→23:32)
--- NOTE | 2018-06-18 10:56 | P.PNNEU ---
Subjective Subjective Comments: sz mult r sided yest i inc vimpat to 200 bid and keppra 1000 bid and pbarb 60 bid and 2 mg ativan Active Medications: Active Medications Acetaminophen (Tylenol Liq) 650 mg PO Q6H PRN PRN Reason: SEE DOSE INSTRUCTIONS Last Admin: 06/05/18 04:47 Dose: 650 mg Al Hydroxide/Mg Hydroxide (Milk Of Magnesia Liq) 30 ml PO Q12H PRN PRN Reason: Mild Constipation Albuterol (Duoneb Neb (Prn)) 1 ampul NEB Q2HR NEB PRN PRN Reason: WHEEZING Bisacodyl (Dulcolax Supp) 10 mg RECTAL DAILY PRN PRN Reason: SEVERE CONSITIPATION Chlorhexidine Gluconate (Peridex 0.12% Oral Kit) 15 ml OROPHARYNG BID@0800, 1999 [facility] Last Admin: 06/18/18 07:42 Dose: Not Given Dextrose (D50w Vial) 50 ml IV.PUSH UNSCH PRN PRN Reason: PER HYPOGLYCEMIA PROTOCOL Enoxaparin Sodium (Lovenox Inj) 40 mg SQ Q24H [facility] Last Admin: 06/03/18 20:29 Dose: 40 mg Flumazenil (Romazecon Inj) 0.2 mg IV.PUSH Q1M PRN PRN Reason: OVERSEDATION Glucagon (Glucagon Inj) 1 mg OTHER PRN PRN PRN Reason: for Hypoglycemia Protocol Sodium Phosphate 30 mmol/ (Sodium Chloride) 260 mls @ 42 mls/hr IV.SIG UNSCH PRN PRN Reason: For Phosphorus < 2.5 mg/dL Last Infusion: 05/27/18 14:58 Dose: Infused Aztreonam 1,000 mg/ Sodium (Chloride) 100 mls @ 200 mls/hr IV.SIG Q8H [facility] Stop: 06/18/18 13:00 Last Infusion: 06/18/18 07:31 Dose: Infused Dextrose/Sodium Chloride (D5w/1/2 Ns Inj) 1,000 mls @ 60 mls/hr IV.CONT .[id number] [facility] Last Infusion: 06/18/18 09:51 Dose: 0 mls/hr Lacosamide 200 mg/ Sodium (Chloride) 120 mls @ 120 mls/hr IV.SIG Q12H [facility] Last Admin: 06/18/18 10:33 Dose: 120 mls/hr Levetiracetam 1,000 mg/ Sodium (Chloride) 110 mls @ 440 mls/hr IV.SIG BID [facility] Last Admin: 06/18/18 09:50 Dose: 440 mls/hr Insulin Human Regular (Novolin R Correctional Sugar Inj) 0 units SQ Q6HR [facility]; Protocol Last Admin: 06/18/18 06:23 Dose: Not Given Lactulose (Lactulose Liq) 30 ml PO DAILY PRN PRN Reason: SEVERE CONSITIPATION Methylphenidate HCl (Ritalin) 10 mg NG/OG BID@0700,1200 [facility] Last Admin: 06/18/18 08:00 Dose: 10 mg Miscellaneous (Pill Splitter) 1 each OTHER UNSCH PRN PRN Reason: PILL SPLITTER Ondansetron HCl (Zofran Inj) 4 mg IV.PUSH Q6H PRN PRN Reason: NAUSEA OR VOMITING Phenobarbital Sodium (Luminal Inj) 60 mg IV.PUSH BID [facility] Last Admin: 06/18/18 08:03 Dose: 60 mg Senna/Docusate Sodium (Anupama-Colace) 1 tab PO BID [facility] Last Admin: 06/18/18 08:02 Dose: 1 tab Sennosides (Senokot) 17.2 mg PO Q12H PRN PRN Reason: Moderate Constipation Sodium Chloride (Ns Flush) 2 ml IV.FLUSH BID [facility] Last Admin: 06/18/18 08:01 Dose: 2 ml Sodium Chloride (Ns Flush) 2 ml IV.FLUSH PRN PRN PRN Reason: FLUSH AFTER USING IV ACCESS Last Admin: 06/01/18 00:10 Dose: 2 ml Sterile Water (Free Water) 250 ml G-TUBE Q6HR [facility] Last Admin: 06/18/18 06:23 Dose: Not Given Thiamine HCl (Vitamin B1) 100 mg PO DAILY [facility] Last Admin: 06/18/18 08:02 Dose: 100 mg Allergies/Adverse Reactions: Allergies Allergy/AdvReac Type Severity Reaction Status Date / Time Unable to Assess Allergy Unknown Unconscious Verified 05/25/18 17:12 Physical Exam Vital signs: Vital Signs 06/17/18 12:00 06/17/18 12:30 06/17/18 16:00 Temperature 98.5 F 99.2 F Pulse Rate 103 H 103 H Respiratory Rate 20 24 Blood Pressure 143/75 H 160/81 H Pulse Oximetry 97 96 93 L 06/17/18 21:30 06/18/18 00:00 06/18/18 04:00 Temperature 97.6 F 97.8 F 97.6 F Pulse Rate 97 H 93 H 86 Respiratory Rate 24 24 Blood Pressure 145/73 H 100/63 111/55 L Pulse Oximetry 97 92 L 92 L 06/18/18 08:00 Temperature 97.6 F Pulse Rate 91 H Respiratory Rate 22 Blood Pressure 117/65 Pulse Oximetry 86 L Intake & Output 06/17/18 06/18/18 06/18/18 18:59 06:59 18:59 Intake Total 1205 / 1205 210 / 210 1325 / 1325 Output Total 400 / 400 Balance 1205 / 1205 -190 / -190 1325 / 1325 Weight 51.8 kg Intake: IV 1205 / 1205 210 / 210 1325 / 1325 D5W/1/2 NS Inj 1,000 ML @ 60 1000 / 1000 1000 / 1000 mls/hr IV.CONT .[id number] [facility] Rx# :[id number] Azactam Inj 1,000 MG In NS Inj 100 / 100 100 / 100 100 / 100 100 ML @ 200 mls/hr IV.SIG Q8H [facility] Rx#:[id number] Vimpat Inj 200 MG In NS Inj 100 105 / 105 120 / 120 ML @ 120 mls/hr IV.SIG Q12H [facility] Rx#:[id number] Keppra Inj 1,000 MG In NS Inj 110 / 110 100 ML @ 440 mls/hr IV.SIG BID [facility] Rx#:[id number] Oral 0 / 0 0 / 0 Output: Stool 0 / 0 Urine Amount (Catheter) 400 / 400 Condom 400 / 400 Other: # Voids 3 1 Date of Last Bowel Movement 06/16/18 06/17/18 06/17/18 # Bowel Movements 0 0 Narrative: awake mumbles eyes open moving all arms drawn up some seems to understand some i say - Urinary Catheter Management Indwelling Urethral Catheter Cath placed during this visit: yes, but has since been removed by the nurse Reason for continuing: Not indwelling catheter Insertion date: 05/25/18 Insertion time: 15:00 Removal date: 05/26/18 Removal time: 12:00 Straight Cath placed during this visit: yes Reason for continuing: Not indwelling catheter Insertion date: 06/05/18 Insertion time: 00:20 Condom Cath placed during this visit: no Reason for continuing: Not indwelling catheter Objective Laboratory Results - last 24 hr 06/17/18 06/17/18 06/17/18 12:15 17:50 23:00 WBC RBC Hgb Hct MCV MCH MCHC RDW Plt Count MPV Prelim Diff (Auto) Neut % (Auto) Lymph % (Auto) [place] % (Auto) Eos % (Auto) Baso % (Auto) Neut # (Auto) Lymph # (Auto) [place] # (Auto) Eos # (Auto) Baso # (Auto) WBC Differential Seg Neuts % (Manual) Band Neuts % (Manual) Lymphocytes % (Manual) Monocytes % (Manual) Abs Neuts (Manual) Differential Comment Platelet Estimate Platelet Morphology Sodium Potassium Chloride Carbon Dioxide Anion Gap BUN Creatinine Estimated GFR POC Glucose 129 H 112 H 99 Random Glucose Calcium Phosphorus Magnesium Total Bilirubin AST ALT Alkaline Phosphatase Total Protein Albumin Phenobarbital 06/18/18 06/18/18 06/18/18 03:46 04:15 04:15 WBC 9.8 RBC 2.89 L Hgb 8.9 L Hct 26.5 L MCV 91.6 MCH 30.8 MCHC 33.6 RDW 18.0 H Plt Count 475 H D MPV 7.8 Prelim Diff (Auto) Slide review pending Neut % (Auto) 63.7 Lymph % (Auto) 17.7 [place] % (Auto) 13.6 H Eos % (Auto) 2.3 Baso % (Auto) 2.7 H Neut # (Auto) 6.3 Lymph # (Auto) 1.7 [place] # (Auto) 1.3 H Eos # (Auto) 0.2 Baso # (Auto) 0.3 H WBC Differential Manual diff final Seg Neuts % (Manual) 61 Band Neuts % (Manual) 6 Lymphocytes % (Manual) 12 Monocytes % (Manual) 21 H Abs Neuts (Manual) 6.6 Differential Comment . Platelet Estimate High H Platelet Morphology Normal Sodium 137 Potassium 4.3 Chloride 106 Carbon Dioxide 26.0 Anion Gap 5 BUN 8 Creatinine 0.33 L Estimated GFR Greater than 89 POC Glucose 94 Random Glucose 77 Calcium 8.3 L Phosphorus 3.7 Magnesium 1.8 Total Bilirubin 0.4 AST 52 H ALT 20 Alkaline Phosphatase 258 H Total Protein 5.8 L Albumin 1.3 L Phenobarbital Less than 2.1 L 06/18/18 06:19 WBC RBC Hgb Hct MCV MCH MCHC RDW Plt Count MPV Prelim Diff (Auto) Neut % (Auto) Lymph % (Auto) [place] % (Auto) Eos % (Auto) Baso % (Auto) Neut # (Auto) Lymph # (Auto) [place] # (Auto) Eos # (Auto) Baso # (Auto) WBC Differential Seg Neuts % (Manual) Band Neuts % (Manual) Lymphocytes % (Manual) Monocytes % (Manual) Abs Neuts (Manual) Differential Comment Platelet Estimate Platelet Morphology Sodium Potassium Chloride Carbon Dioxide Anion Gap BUN Creatinine Estimated GFR POC Glucose 87 Random Glucose Calcium Phosphorus Magnesium Total Bilirubin AST ALT Alkaline Phosphatase Total Protein Albumin Phenobarbital Review/Management - Review/Management Plan: imp mri and eeg neg on keppra hold all sedatives could be prolonged postictal will fu saturday see if awakens over next few days no apparent reason why he would not - 06/02/18 much better should do well keppra off vent when able 06/05/18 no sz he should bounce back neurowise to prior level of functioning keppra stable neuro 06/07/18 no sz on keppra 1000 bid eeg neg check abg for some inc ms change may need peg? i dw sone no etoh and needs to take his meds lives w daughter she should see that he does 06/08/18 have PT oob recheck eeg lower keppra to 750 bid should be making progress ? chest PT getting dehydrated na 150 06/09/18 a little better today try sinemet see if helps tremor and motor system etoher i dw son will fu eeg ok 06/10/18 no change i would think he should bounce back to prior functioning will need peg short term however maybe a month or two 06/11/18 try ritalin will tai nurse still lethargic will inc ritalin to 10mg i lowered the keppra to 250 bid 06/13/18 more alert on lower keppra i am going to dc keppra dn stay on ritalin and see how does he is at risk for sz but if it is med causing ms change need to know then on saturday i can start something else 06/16/18 looks much more alert try and get oob vimpat 50 bid for now 06/18/18 unfortunately sz yest on keppra 1000 bid pbarb 60bid andvimpat 200 bid looks ok now recheck eeg prob to floor tomorrow if no more sz
[2018-06-18] MEDS: Valproate Inj 500 MG in Sodium Chlor 0.9% Inj 100 ML IV.SIG SCH ×2 (12:28→22:38)
--- NOTE | 2018-06-18 13:31 | P.PNIM ---
Subjective Interval history: DW RN NGT IS FURTHER PULLED OUT WILL GET CHEST XRAY FOR PLACEMENT MAY NEED TO BE REINSERTED PRIOR TO USING AGAIN 06-17 NGT IS WORKING FAILED SWALLOW EVAL AGAIN NO IMPROVEMENT WILL NEED PEG OR HOSPICE FAMILY NEEDS TO MAKE DECISIONS 06-18 TRANSFERRED TO ICU FOR CONTINUOUS EEG IS A DNR STILL HAVING SEIZURES MEDICATIONS HAVE BEEN ADJUSTED BY NEUROLOGY VERY GUARDED PROGNOSIS PALLIATIVE CARE FOLLOWING FAMILY NEEDS TO CONSIDER HOSPICE AND COMFORT MEASURES ONLY AM LABS Physical Exam Vital signs: Vital Signs 06/17/18 16:00 06/17/18 21:30 06/18/18 00:00 Temperature 99.2 F 97.6 F 97.8 F Pulse Rate 103 H 97 H 93 H Respiratory Rate 24 24 Blood Pressure 160/81 H 145/73 H 100/63 Pulse Oximetry 93 L 97 92 L 06/18/18 04:00 06/18/18 08:00 Temperature 97.6 F 97.6 F Pulse Rate 86 91 H Respiratory Rate 24 22 Blood Pressure 111/55 L 117/65 Pulse Oximetry 92 L 86 L Intake & Output 06/17/18 06/18/18 06/18/18 18:59 06:59 18:59 Intake Total 1205 / 1205 210 / 210 1435 / 1435 Output Total 400 / 400 Balance 1205 / 1205 -190 / -190 1435 / 1435 Weight 51.8 kg Intake: IV 1205 / 1205 210 / 210 1435 / 1435 D5W/1/2 NS Inj 1,000 ML @ 60 1000 / 1000 1000 / 1000 mls/hr IV.CONT .[id number] ALPHONSE Rx# :[id number] Azactam Inj 1,000 MG In NS Inj 100 / 100 100 / 100 100 / 100 100 ML @ 200 mls/hr IV.SIG Q8H ALPHONSE Rx#:[id number] Vimpat Inj 200 MG In NS Inj 100 105 / 105 120 / 120 ML @ 120 mls/hr IV.SIG Q12H ALPHONSE Rx#:[id number] Keppra Inj 1,000 MG In NS Inj 110 / 110 110 / 110 100 ML @ 440 mls/hr IV.SIG BID ALPHONSE Rx#:[id number] Oral 0 / 0 0 / 0 Output: Stool 0 / 0 Urine Amount (Catheter) 400 / 400 Condom 400 / 400 Other: # Voids 3 1 Date of Last Bowel Movement 06/16/18 06/17/1806/17/18 # Bowel Movements 0 0 Narrative: GENERAL: This is a thin male, in no apparent distress laying in bed with simple mask. NG-tube in place CARDIOVASCULAR: Regular rate and rhythm RESPIRATORY: Bilateral rhonchi GASTROINTESTINAL: Abdomen soft, non-tender, nondistended. Normal active bowel sounds MUSCULOSKELETAL: Extremities without clubbing, cyanosis, trace edema NEURO: Sleepy, opens eyes with voice however confused, did not follow commands. Not able to assess insight and judgment not able to assess mood or behavior Nonverbal at this time APPEARS TO STILL BE HAVING SEIZURE ACTIVITY MEDS BEING ADJUSTED - Urinary Catheter Management Indwelling Urethral Catheter Cath placed during this visit: yes, but has since been removed by the nurse Reason for continuing: Not indwelling catheter Insertion date: 05/25/18 Insertion time: 15:00 Removal date: 05/26/18 Removal time: 12:00 Straight Cath placed during this visit: yes Reason for continuing: Not indwelling catheter Insertion date: 06/05/18 Insertion time: 00:20 Condom Cath placed during this visit: no Reason for continuing: Not indwelling catheter Results - Labs CBC & Chem 7: 06/18/18 04:15 06/18/18 04:15 Laboratory Results - last 24 hr 06/17/18 06/17/18 06/18/18 17:50 23:00 03:46 WBC RBC Hgb Hct MCV MCH MCHC RDW Plt Count MPV Prelim Diff (Auto) Neut % (Auto) Lymph % (Auto) [place] % (Auto) Eos % (Auto) Baso % (Auto) Neut # (Auto) Lymph # (Auto) [place] # (Auto) Eos # (Auto) Baso # (Auto) WBC Differential Seg Neuts % (Manual) Band Neuts % (Manual) Lymphocytes % (Manual) Monocytes % (Manual) Abs Neuts (Manual) Differential Comment Platelet Estimate Platelet Morphology Sodium Potassium Chloride Carbon Dioxide Anion Gap BUN Creatinine Estimated GFR POC Glucose 112 H 99 94 Random Glucose Calcium Phosphorus Magnesium Total Bilirubin AST ALT Alkaline Phosphatase Total Protein Albumin Phenobarbital 06/18/18 06/18/18 06/18/18 04:15 04:15 06:19 WBC 9.8 RBC 2.89 L Hgb 8.9 L Hct 26.5 L MCV 91.6 MCH 30.8 MCHC 33.6 RDW 18.0 H Plt Count 475 H D MPV 7.8 Prelim Diff (Auto) Slide review pending Neut % (Auto) 63.7 Lymph % (Auto) 17.7 [place] % (Auto) 13.6 H Eos % (Auto) 2.3 Baso % (Auto) 2.7 H Neut # (Auto) 6.3 Lymph # (Auto) 1.7 [place] # (Auto) 1.3 H Eos # (Auto) 0.2 Baso # (Auto) 0.3 H WBC Differential Manual diff final Seg Neuts % (Manual) 61 Band Neuts % (Manual) 6 Lymphocytes % (Manual) 12 Monocytes % (Manual) 21 H Abs Neuts (Manual) 6.6 Differential Comment . Platelet Estimate High H Platelet Morphology Normal Sodium 137 Potassium 4.3 Chloride 106 Carbon Dioxide 26.0 Anion Gap 5 BUN 8 Creatinine 0.33 L Estimated GFR Greater than 89 POC Glucose 87 Random Glucose 77 Calcium 8.3 L Phosphorus 3.7 Magnesium 1.8 Total Bilirubin 0.4 AST 52 H ALT 20 Alkaline Phosphatase 258 H Total Protein 5.8 L Albumin 1.3 L Phenobarbital Less than 2.1 L 06/18/18 11:40 WBC RBC Hgb Hct MCV MCH MCHC RDW Plt Count MPV Prelim Diff (Auto) Neut % (Auto) Lymph % (Auto) [place] % (Auto) Eos % (Auto) Baso % (Auto) Neut # (Auto) Lymph # (Auto) [place] # (Auto) Eos # (Auto) Baso # (Auto) WBC Differential Seg Neuts % (Manual) Band Neuts % (Manual) Lymphocytes % (Manual) Monocytes % (Manual) Abs Neuts (Manual) Differential Comment Platelet Estimate Platelet Morphology Sodium Potassium Chloride Carbon Dioxide Anion Gap BUN Creatinine Estimated GFR POC Glucose 76 Random Glucose Calcium Phosphorus Magnesium Total Bilirubin AST ALT Alkaline Phosphatase Total Protein Albumin Phenobarbital - Imaging Chest X-Ray 05/25/18 15:22 CONCLUSION: No acute cardiopulmonary disease. Head CT 05/25/18 15:22 CONCLUSION: Chronic small vessel ischemic and atrophic changes. Head MRI 05/27/18 00:00 CONCLUSION: 1. Atrophy, white matter disease and remote left temporal infarct with encephalomalacia. Chest X-Ray 06/04/18 09:56 CONCLUSION: Patchy infiltrates are noted within the left mid and lower lung field and streakiness is noted within the right lung base consistent with atelectasis and/ or pneumonia. Clinical correlation is recommended. Chest X-Ray 06/07/18 07:12 CONCLUSION: Bilateral perihilar densities and left basilar airspace disease, not significantly changed. Abdomen X-Ray 06/08/18 00:00 CONCLUSION: Nasogastric tube tip in the distal stomach. Chest X-Ray 06/10/18 00:00 CONCLUSION: Nasogastric tube with tip in distal esophagus. This should be advanced at least 7 cm. Chest X-Ray 06/10/18 00:00 CONCLUSION: Nasogastric tube with tip in stomach, but could still be advanced. Stable bibasilar densities and small pleural effusions. Chest X-Ray 06/10/18 00:00 CONCLUSION: 1. Adequate placement of nasogastric tube. 2. Left basilar density and small pleural effusion. Liver Ultrasound 06/12/18 00:00 CONCLUSION: 1. Mild hepatic heterogeneity with no focal lesion or intrahepatic biliary ductal dilatation. Findings are nonspecific but could represent early cirrhosis. 2. Gallbladder is decompressed but may contain a small amount of intraluminal sludge. 3. Otherwise negative. Chest X-Ray 06/12/18 01:45 CONCLUSION: Bibasilar areas of suspected atelectasis, consolidation or possible effusions. Chest X-Ray 06/16/18 00:00 CONCLUSION: Moderate to large bibasilar opacities that have increased from the prior examination. These likely represent pleural effusions with associated volume loss and/or airspace consolidation. The overall pattern can be seen with pulmonary edema. - Procedures EEG Assessment and Plan - Plan Alcohol dependence Alcohol withdrawal Seizure disorder with active seizures- improving. Medication noncompliance Acute combined toxic and metabolic encephalopathy-persists. Frequent neurochecks with continued confusion which persists. Patient is less agitated today and will attempt swallow evaluation.. Continue with Keppra per Neuro EEG 05/26: negative for ictal activity. generalized slowing. Repeat EEG ordered on 05/29 in view of tremors noted in right upper extremity. Appreciate neurology consultation and recommendations. On thiamine and multivitamins Head CT negative for acute disease 05/25. MRI brain: Remote left temporal infarct, atrophy 05/27 Repeat ammonia level not elevated. Neurology recommended starting trial of Adderall Patient's mental status waxes and wanes however has not had much improvement. SEEMS TO BE IN STATUS SEIZURES AT THIS TIME ON CONTINUOUS EEG MOVED TO ICU DUE TO SEIZURES SEIZURE MEDS BEING ADJUSTED BY NEUROLOGY Acute hypoxic and hypercarbic respiratory failure Head of bed elevated Continue with oxygen support and keep sats >92% Bronchodilators, Severe dysphasia and high risk for aspirationcontinue n.p.o. and speech therapy ; patient reaspirated 06/12 and pulled NG tube out, patient failed a swallow evaluation. Family does not want PEG tube. Will attempt to reinsert NG tube today IV fluids with D5 half-normal saline; may need to consider PPN although this is not a good long-term solution if unable to insert NG tube.. NGT SEEMS TO BE FURTHER OUT THAN IT SHOULD BE WILL CHECK CHEST XRAY- GETTING TUBE FEEDS TOLERATING BUT NO IMPROVEMENT IN HIS SWALLOWING STILL FAILING SWALLOW EVALUATIONS WITH SPEECH urinary retention - no indication for tubbs. straight cath q6h. Monitor renal function. I/O's, electrolytes replacement per protocol Hypernatremia Change Free water increased to 250 every 6 hour due to hypernatremia, this has improved when patient was able to have NG tube. Alcoholic cirrhosis Acute protein calorie malnutritionsevere Severe hypokalemia- resolving.Replete today Acute intravascular volume depletion- resolving. Hyponatremia- resolved and now with hypernatremia Dehydration- resolving. ICU electrolyte protocol NPO by speech, continue tube feeds - Jevity 1.5 with goal rate 60ml/hr once NG tube can be replaced Previous failed swallow evaluation with high aspiration risk yesterday, patient consistently has failed swallow evaluation. NGT VS PEG VS HOSPICE Healthcare acquired pneumonia with aspiration pneumonia UTI noted. Urine cx: Kleb pneumonia on 05/29, Continue Aztreonam and Vanco per ID, day number #8 06/04, Urine, Blood culture, sputum cx: NGTD ID is following. Leukocytosis trending down Anemia, chronic likely due to history of cirrhosis and chronic disease monitor CBC, s/p transfuse 2u PRBC 06/04. Hyperglycemia of critical illness and now hypoglycemia due to n.p.o. status will start D5W -- SSI Prophylaxis: GI Prophylaxis Pepcid DVT Prophylaxis -- SCDs Lovenox held for anemia requiring blood transfusion Lines: Peripheral IVs Palliative care is following This is a complex case with patient having recurrent aspiration with persistent metabolic and alcoholic encephalopathy. Patient is a DNR status Discussed with son at bedside who wants continue medical treatment up to DNR status, if patient does continue to decompensate will transition to hospice. Discharge Planning: May need long-term placement if clinically improves. CANNOT PLACE WITH NGT IN PLACE If continues to decompensate will need to transition to hospice. HOSPICE PROBABLY IN HIS FUTURE Code Status: DNR Discussed Condition With: RN AND PT AND NEUROLOGY Discharge Planning: PENDING FAMILY DECISIONS ON PEG VS NGT NO IMPROVEMENT WITH SWALLOW TEAM HOSPICE? PALLIATIVE CARE CONSULT STILL SEIZING
--- NOTE | 2018-06-18 13:33 | P.PNPAL ---
Reason for Visit Reason for visit: a. To assist with evaluation and management of symptoms including: confusion, dyspnea b. To assist medical decision maker(s) with: better understanding of current medical conditions; weighing benefits/burdens of medical treatment options; making medical treatment decisions. Subjective Subjective/Interval History: Pt remains minimally responsive. Per nurse, pt did have some desaturation earlier this morning, but since then he has been able to maintain O2 saturations BP fluctuates from 100/63 to 117/ 65. Respiratory Rate 22-24. Pt on keppra, pehnobarbital, Lacosamide. EEG show psudoperiodic left posterior sharp discharges. Family/Friend Interactions: Spoke to son, update him on clinical status. Reaffirms DNR. Ask for one more day to decide on peg tube. Advance Directives Health Care Surrogate Name and Number: Carlos Alberto Barnett [phone]; Amber Barnett [phone], Objective Vital Signs: Vital Signs 06/17/18 16:00 06/17/18 21:30 06/18/18 00:00 Temperature 99.2 F 97.6 F 97.8 F Pulse Rate 103 H 97 H 93 H Respiratory Rate 24 24 Blood Pressure 160/81 H 145/73 H 100/63 Pulse Oximetry 93 L 97 92 L 06/18/18 04:00 06/18/18 08:00 Temperature 97.6 F 97.6 F Pulse Rate 86 91 H Respiratory Rate 24 22 Blood Pressure 111/55 L 117/65 Pulse Oximetry 92 L 86 L Intake & Output 06/17/18 06/18/18 06/18/18 18:59 06:59 18:59 Intake Total 1205 / 1205 210 / 210 1435 / 1435 Output Total 400 / 400 Balance 1205 / 1205 -190 / -190 1435 / 1435 Weight 51.8 kg Intake: IV 1205 / 1205 210 / 210 1435 / 1435 D5W/1/2 NS Inj 1,000 ML @ 60 1000 / 1000 1000 / 1000 mls/hr IV.CONT .[id number] ALPHONSE Rx# :[id number] Azactam Inj 1,000 MG In NS Inj 100 / 100 100 / 100 100 / 100 100 ML @ 200 mls/hr IV.SIG Q8H ALPHONSE Rx#:[id number] Vimpat Inj 200 MG In NS Inj 100 105 / 105 120 / 120 ML @ 120 mls/hr IV.SIG Q12H ALPHONSE Rx#:[id number] Keppra Inj 1,000 MG In NS Inj 110 / 110 110 / 110 100 ML @ 440 mls/hr IV.SIG BID ALPHONSE Rx#:[id number] Oral 0 / 0 0 / 0 Output: Stool 0 / 0 Urine Amount (Catheter) 400 / 400 Condom 400 / 400 Other: # Voids 3 1 Date of Last Bowel Movement 06/16/18 06/17/18 06/17/18 # Bowel Movements 0 0 Physical Exam: CONSTITUTIONAL/GENERAL: cachectic, frail, alert.. SKIN: No jaundice, rashes, or lesions. No wounds seen anteriorly. Skin temperature appropriate. Not diaphoretic. HEAD: Atraumatic. Normocephalic. EYES: PERRL . Fundi not examined. ENT: Nose without bleeding or purulent drainage. CARDIOVASCULAR: tachycardic, irr HR, no gallops, or rubs. RESPIRATORY/CHEST: Patient has less rhonchi. GASTROINTESTINAL: Abdomen soft, non-tender, nondistended. No hepato-splenomegaly , or palpable masses. No guarding. Bowel sounds present. GENITOURINARY: Without palpable bladder distension. Martin catheter in place. MUSCULOSKELETAL: + 2 pittingBLE edema NEUROLOGICAL: opens eyes, minimally responsive. Diagnostic Tests Laboratory: Laboratory Results - last 72 hr 06/15/18 06/15/18 06/16/18 17:14 22:53 04:51 WBC RBC Hgb Hct MCV MCH MCHC RDW Plt Count MPV Prelim Diff (Auto) Neut % (Auto) Lymph % (Auto) [place] % (Auto) Eos % (Auto) Baso % (Auto) Neut # (Auto) Lymph # (Auto) [place] # (Auto) Eos # (Auto) Baso # (Auto) WBC Differential Seg Neuts % (Manual) Band Neuts % (Manual) Lymphocytes % (Manual) Monocytes % (Manual) Eosinophils % (Manual) Myelocytes % (Man) Abs Neuts (Manual) Differential Comment Platelet Estimate Platelet Morphology Sodium Potassium Chloride Carbon Dioxide Anion Gap BUN Creatinine Estimated GFR POC Glucose 93 111 H 119 H Random Glucose Calcium Phosphorus Magnesium Total Bilirubin AST ALT Alkaline Phosphatase Total Protein Albumin Phenobarbital 08/20/18 08/20/18 08/20/18 13:06 18:01 21:45 WBC RBC Hgb Hct MCV MCH MCHC RDW Plt Count MPV Prelim Diff (Auto) Neut % (Auto) Lymph % (Auto) [place] % (Auto) Eos % (Auto) Baso % (Auto) Neut # (Auto) Lymph # (Auto) [place] # (Auto) Eos # (Auto) Baso # (Auto) WBC Differential Seg Neuts % (Manual) Band Neuts % (Manual) Lymphocytes % (Manual) Monocytes % (Manual) Eosinophils % (Manual) Myelocytes % (Man) Abs Neuts (Manual) Differential Comment Platelet Estimate Platelet Morphology Sodium Potassium Chloride Carbon Dioxide Anion Gap BUN Creatinine Estimated GFR POC Glucose 96 105 116 H Random Glucose Calcium Phosphorus Magnesium Total Bilirubin AST ALT Alkaline Phosphatase Total Protein Albumin Phenobarbital 06/16/18 06/17/18 06/17/18 23:54 06:49 08:07 WBC 18.1 H RBC 3.18 L Hgb 9.4 L Hct 29.2 L MCV 91.9 MCH 29.5 MCHC 32.2 RDW 18.6 H Plt Count 728 H MPV 7.1 Prelim Diff (Auto) Slide review pending Neut % (Auto) 74.9 H Lymph % (Auto) 11.0 [place] % (Auto) 12.8 H Eos % (Auto) 0.9 Baso % (Auto) 0.4 Neut # (Auto) 13.5 H Lymph # (Auto) 2.0 [place] # (Auto) 2.3 H Eos # (Auto) 0.2 Baso # (Auto) 0.1 WBC Differential Manual diff final Seg Neuts % (Manual) 60 Band Neuts % (Manual) 9 H Lymphocytes % (Manual) 8 L Monocytes % (Manual) 21 H Eosinophils % (Manual) 1 Myelocytes % (Man) 1 H Abs Neuts (Manual) 12.7 H Differential Comment . Platelet Estimate High H Platelet Morphology Normal Sodium Potassium Chloride Carbon Dioxide Anion Gap BUN Creatinine Estimated GFR POC Glucose 137 H 114 H Random Glucose Calcium Phosphorus Magnesium Total Bilirubin AST ALT Alkaline Phosphatase Total Protein Albumin Phenobarbital 06/17/18 06/17/18 06/17/18 08:07 12:15 17:50 WBC RBC Hgb Hct MCV MCH MCHC RDW Plt Count MPV Prelim Diff (Auto) Neut % (Auto) Lymph % (Auto) [place] % (Auto) Eos % (Auto) Baso % (Auto) Neut # (Auto) Lymph # (Auto) [place] # (Auto) Eos # (Auto) Baso # (Auto) WBC Differential Seg Neuts % (Manual) Band Neuts % (Manual) Lymphocytes % (Manual) Monocytes % (Manual) Eosinophils % (Manual) Myelocytes % (Man) Abs Neuts (Manual) Differential Comment Platelet Estimate Platelet Morphology Sodium 135 L Potassium 4.5 Chloride 102 Carbon Dioxide 24.8 Anion Gap 8 BUN 7 Creatinine 0.40 L Estimated GFR Greater than 89 POC Glucose 129 H 112 H Random Glucose 100 Calcium 8.1 L Phosphorus 3.3 Magnesium 1.7 Total Bilirubin 0.4 AST 74 H ALT 21 Alkaline Phosphatase 326 H Total Protein 6.1 L Albumin 1.4 L Phenobarbital 06/17/18 06/18/18 06/18/18 23:00 03:46 04:15 WBC 9.8 RBC 2.89 L Hgb 8.9 L Hct 26.5 L MCV 91.6 MCH 30.8 MCHC 33.6 RDW 18.0 H Plt Count 475 H D MPV 7.8 Prelim Diff (Auto) Slide review pending Neut % (Auto) 63.7 Lymph % (Auto) 17.7 [place] % (Auto) 13.6 H Eos % (Auto) 2.3 Baso % (Auto) 2.7 H Neut # (Auto) 6.3 Lymph # (Auto) 1.7 [place] # (Auto) 1.3 H Eos # (Auto) 0.2 Baso # (Auto) 0.3 H WBC Differential Manual diff final Seg Neuts % (Manual) 61 Band Neuts % (Manual) 6 Lymphocytes % (Manual) 12 Monocytes % (Manual) 21 H Eosinophils % (Manual) Myelocytes % (Man) Abs Neuts (Manual) 6.6 Differential Comment . Platelet Estimate High H Platelet Morphology Normal Sodium Potassium Chloride Carbon Dioxide Anion Gap BUN Creatinine Estimated GFR POC Glucose 99 94 Random Glucose Calcium Phosphorus Magnesium Total Bilirubin AST ALT Alkaline Phosphatase Total Protein Albumin Phenobarbital 06/18/18 06/18/18 06/18/18 04:15 06:19 11:40 WBC RBC Hgb Hct MCV MCH MCHC RDW Plt Count MPV Prelim Diff (Auto) Neut % (Auto) Lymph % (Auto) [place] % (Auto) Eos % (Auto) Baso % (Auto) Neut # (Auto) Lymph # (Auto) [place] # (Auto) Eos # (Auto) Baso # (Auto) WBC Differential Seg Neuts % (Manual) Band Neuts % (Manual) Lymphocytes % (Manual) Monocytes % (Manual) Eosinophils % (Manual) Myelocytes % (Man) Abs Neuts (Manual) Differential Comment Platelet Estimate Platelet Morphology Sodium 137 Potassium 4.3 Chloride 106 Carbon Dioxide 26.0 Anion Gap 5 BUN 8 Creatinine 0.33 L Estimated GFR Greater than 89 POC Glucose 87 76 Random Glucose 77 Calcium 8.3 L Phosphorus 3.7 Magnesium 1.8 Total Bilirubin 0.4 AST 52 H ALT 20 Alkaline Phosphatase 258 H Total Protein 5.8 L Albumin 1.3 L Phenobarbital Less than 2.1 L Result Diagrams: 06/18/18 04:15 06/18/18 04:15 Imaging: ITS Impressions Head CT 05/25/18 15:22 CONCLUSION: Chronic small vessel ischemic and atrophic changes. Head MRI 05/27/18 00:00 CONCLUSION: 1. Atrophy, white matter disease and remote left temporal infarct with encephalomalacia. Abdomen X-Ray 06/08/18 00:00 CONCLUSION: Nasogastric tube tip in the distal stomach. Liver Ultrasound 06/12/18 00:00 CONCLUSION: 1. Mild hepatic heterogeneity with no focal lesion or intrahepatic biliary ductal dilatation. Findings are nonspecific but could represent early cirrhosis. 2. Gallbladder is decompressed but may contain a small amount of intraluminal sludge. 3. Otherwise negative. Chest X-Ray 06/16/18 00:00 CONCLUSION: Moderate to large bibasilar opacities that have increased from the prior examination. These likely represent pleural effusions with associated volume loss and/or airspace consolidation. The overall pattern can be seen with pulmonary edema. 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 . Has 10 kids. Originally from [place], grew up in [place], has been in [place] for 40 y. Lives with one of his daughters. Some of his children are local. Spiritual: Buddhist non-zoroastrian, daughter requests sde visit Legal: Pt is not capacitated to make medical decisions. It is unclear if he will regain capacity. He has previously designated son Carlos Alberto Barnett as primary HCS and daughter Amber as secondary. Ethical issues impacting care: none identified Important Contacts: Carlos Alberto Barnett son/primary HCS: [phone] Amber Barnett daughter/alternate HCS: [phone] or [phone] Prognosis: 72 yo male with seizure disorder since head injury 5 y ago, noncompliance with seizure meds, 50 year hx drinking up to or more than a gallon of wine daily admitted 05/25 after having seizure like activity, intubated in the field. EEG showing encephalopathy. He appears cachectic and malnourished. It is unclear if his encephalopathy will improve completely. His poor nutrition status makes full physical recovery unlikely. He is quite likely to continue having complications such as seizures d/t noncompliance, episodes of withdrawal, falls. Code Status: No Code DNR Plan: - LEGAL DECISON MAKER - [facility] completed 02/13/17 Amber Sellers secondary - CODE STATUS- DNR. - GOALS - Spoke with son at bedside. Infectious disease at bedside. Neurology progress note on 06/10 noted "i would think he should bounce back to prior functioning will need peg short term however maybe a month or two" That has been review with son. Son understands on the in the way their will be challenges with aspiration, hospitalization. Goals of care review with the son: * Spoke to son, update him on clinical status. Reaffirms DNR. Ask for one more day to decide on peg tube. - SYMPTOMS - * dyspnea - intubated in field. extubated 06/06. sat 99% lung sounds coarse, + wheezes . Has PRN and scheduled duonebs. * Less lethargic today. * confusion - multifactorial, long hx etoh abuse, seizure disorder, head injury. ?withdrawal vs seizures vs both? EEG 05/26 showing encephalopathy, no seizure activity.on my eval he was lethargic- didn't rouse to verbal stimuli or my exam. off sedation, now extubated. Per neurology following. - Palliative care will continue to follow during hospital course as condition evolves, to assist patient/decision-maker with understanding of medical conditions, weighing benefits/burdens of treatment options, for clarification of goals of treatment. Additionally will assist with any symptoms of palliative concern
[2018-06-18] MEDS ORDERED: Gadobutrol PF 2 MMOL/2 ML Vial (for RAD) IV.SIG ONE (16:16)
--- NOTE | 2018-06-18 16:16 | MR ---
EXAM DATE: 06/18/2018 4:11 PM EDT AGE/SEX: 72 years / Male INDICATIONS: Seizures. CLINICAL DATA: This is the patient's subsequent encounter. Patient reports that signs and symptoms h ave been present for 3 weeks and indicates a pain score of 0/10. MEDICAL/SURGICAL HISTORY: Seizures. Craniotomy. [place] [facility] [place]27/2018. . TECHNIQUE: Multiplanar, multisequence examination of the brain was performed without and with 5 ml Ga davist (gadobutrol) contrast as a single exam dose. FINDINGS: There is encephalomalacia in the anterior left temporal region which is unchanged. There is stable mi ld symmetric ventricular prominence and symmetric cortical atrophy. There is no evidence of mass or h emorrhage and nothing to suggest acute infarction. Minimal patchy benign appearing T2 prolongation in deep white matter structures, unchanged There is minimal fluid in the sphenoid sinus and fluid in right-sided mastoid air cells. CONCLUSION: Stable brain. No acute findings. Electronically signed by: Brenden Carbajal MD 06/18/2018 4:15 PM EDT
[2018-06-18] MEDS: PHENobarbital Inj 130 MG/ML Vial IV.PUSH SCH (20:28)
--- NOTE | 2018-06-18 21:42 | MG ---
cc: Missael Walsh MD ELECTROENCEPHALOGRAM RECORD NUMBER: [id number] DESCRIPTION: Left polyspike discharges occurring at 0.5-1 Hz. Clusters appear to occur in awake and sleep states. Background showing theta delta frequencies at 20-60 microvolts and a lot of artifact movement occurring towards the end of the recording. No significant driving with photic stimulation. Single-lead EKG showing sinus rhythm with some artifact. INTERPRETATION: Left-sided periodic lateralized epileptiform discharge like activity, similar to previous. MD SATNAM Huff/marycruz , 08:58 PM , 09:02 PM
[2018-06-19] MEDS: Oral Hygiene Kit OROPHARYNG SCH ×5 (00:42→23:17)
[2018-06-19] MEDS: Insulin NovoLIN Regular Correctional Sugar Inj SQ SCH ×4 (02:19→17:36)
[2018-06-19] MEDS: Valproate Inj 500 MG in Sodium Chlor 0.9% Inj 100 ML IV.SIG SCH ×3 (04:18→20:40)
[2018-06-19] MEDS: Dextrose 5%/NaCl 0.45% Inj 1,000 ML IV.CONT SCH ×2 (05:06→16:34)
--- NOTE | 2018-06-19 07:52 | P.PNNEU ---
Subjective Subjective Comments: no clinical sz overnoc Active Medications: Active Medications Acetaminophen (Tylenol Liq) 650 mg PO Q6H PRN PRN Reason: SEE DOSE INSTRUCTIONS Last Admin: 06/05/18 04:47 Dose: 650 mg Al Hydroxide/Mg Hydroxide (Milk Of Magnesia Liq) 30 ml PO Q12H PRN PRN Reason: Mild Constipation Albuterol (Duoneb Neb (Prn)) 1 ampul NEB Q2HR NEB PRN PRN Reason: WHEEZING Bisacodyl (Dulcolax Supp) 10 mg RECTAL DAILY PRN PRN Reason: SEVERE CONSITIPATION Chlorhexidine Gluconate (Peridex 0.12% Oral Kit) 15 ml OROPHARYNG BID@0800, 2000 [facility] Last Admin: 06/18/18 22:39 Dose: 15 ml Dextrose (D50w Vial) 50 ml IV.PUSH UNSCH PRN PRN Reason: PER HYPOGLYCEMIA PROTOCOL Enoxaparin Sodium (Lovenox Inj) 40 mg SQ Q24H [facility] Last Admin: 06/03/18 20:29 Dose: 40 mg Flumazenil (Romazecon Inj) 0.2 mg IV.PUSH Q1M PRN PRN Reason: OVERSEDATION Glucagon (Glucagon Inj) 1 mg OTHER PRN PRN PRN Reason: for Hypoglycemia Protocol Sodium Phosphate 30 mmol/ (Sodium Chloride) 260 mls @ 42 mls/hr IV.SIG UNSCH PRN PRN Reason: For Phosphorus < 2.5 mg/dL Last Infusion: 05/27/18 14:58 Dose: Infused Dextrose/Sodium Chloride (D5w/1/2 Ns Inj) 1,000 mls @ 60 mls/hr IV.CONT .[id number] [facility] Last Admin: 06/19/18 05:06 Dose: 60 mls/hr Lacosamide 200 mg/ Sodium (Chloride) 120 mls @ 120 mls/hr IV.SIG Q12H [facility] Last Infusion: 06/18/18 22:40 Dose: Infused Levetiracetam 1,000 mg/ Sodium (Chloride) 110 mls @ 440 mls/hr IV.SIG BID [facility] Last Infusion: 06/18/18 20:43 Dose: Infused Valproate Sodium 500 mg/ (Sodium Chloride) 105 mls @ 105 mls/hr IV.SIG Q8H [facility] Last Infusion: 06/19/18 07:36 Dose: Infused Insulin Human Regular (Novolin R Correctional Sugar Inj) 0 units SQ Q6HR [facility]; Protocol Last Admin: 06/19/18 07:35 Dose: Not Given Lactulose (Lactulose Liq) 30 ml PO DAILY PRN PRN Reason: SEVERE CONSITIPATION Miscellaneous (Pill Splitter) 1 each OTHER UNSCH PRN PRN Reason: PILL SPLITTER Ondansetron HCl (Zofran Inj) 4 mg IV.PUSH Q6H PRN PRN Reason: NAUSEA OR VOMITING Phenobarbital Sodium (Luminal Inj) 90 mg IV.PUSH BID [facility] Last Admin: 06/18/18 20:28 Dose: 90 mg Senna/Docusate Sodium (Anupama-Colace) 1 tab PO BID [facility] Last Admin: 06/18/18 23:32 Dose: 1 tab Sennosides (Senokot) 17.2 mg PO Q12H PRN PRN Reason: Moderate Constipation Sodium Chloride (Ns Flush) 2 ml IV.FLUSH BID [facility] Last Admin: 06/18/18 22:38 Dose: 2 ml Sodium Chloride (Ns Flush) 2 ml IV.FLUSH PRN PRN PRN Reason: FLUSH AFTER USING IV ACCESS Last Admin: 06/01/18 00:10 Dose: 2 ml Sterile Water (Free Water) 250 ml G-TUBE Q6HR [facility] Last Admin: 06/19/18 07:35 Dose: Not Given Thiamine HCl (Vitamin B1) 100 mg PO DAILY [facility] Last Admin: 06/18/18 08:02 Dose: 100 mg Allergies/Adverse Reactions: Allergies Allergy/AdvReac Type Severity Reaction Status Date / Time Unable to Assess Allergy Unknown Unconscious Verified 05/25/18 17:12 Physical Exam Vital signs: Vital Signs 06/18/18 08:00 06/18/18 12:00 06/18/18 16:00 Temperature 97.6 F 97.5 F L 97.5 F L Pulse Rate 91 H 86 88 Respiratory Rate 22 20 20 Blood Pressure 117/65 99/56 L 111/57 L Pulse Oximetry 86 L 100 100 06/18/18 20:00 06/18/18 20:59 06/19/18 00:00 Temperature 97.4 F L 97 F L Pulse Rate 77 68 Respiratory Rate 20 Blood Pressure 109/54 L 94/53 L Pulse Oximetry 98 100 06/19/18 04:00 06/19/18 07:46 Temperature 97.4 F L Pulse Rate 79 Respiratory Rate Blood Pressure 101/57 L Pulse Oximetry 96 97 Intake & Output 06/18/18 06/19/18 06/19/18 18:59 06:59 18:59 Intake Total 1760 / 1760 835 / 835 325 / 325 Output Total 625 / 625 500 / 500 Balance 1135 / 1135 335 / 335 325 / 325 Weight 50.4 kg Intake: IV 1760 / 1760 335 / 335 325 / 325 D5W/1/2 NS Inj 1,000 ML @ 60 1000 / 1000 0 / 0 mls/hr IV.CONT .[id number] [facility] Rx# :[id number] Azactam Inj 1,000 MG In NS Inj 200 / 200 100 ML @ 200 mls/hr IV.SIG Q8H [facility] Rx#:[id number] Vimpat Inj 200 MG In NS Inj 100 240 / 240 120 / 120 ML @ 120 mls/hr IV.SIG Q12H [facility] Rx#:[id number] Depacon Inj 500 MG In NS Inj 105 / 105 105 / 105 105 / 105 100 ML @ 105 mls/hr IV.SIG Q8H [facility] Rx#:[id number] Keppra Inj 1,000 MG In NS Inj 110 / 110 110 / 110 100 ML @ 440 mls/hr IV.SIG BID [facility] Rx#:[id number] Water Bolus Amount 500 / 500 Output: Urine 500 / 500 Urine Amount (Catheter) 625 / 625 Condom 625 / 625 Other: # Voids 2 Date of Last Bowel Movement 06/17/18 # Bowel Movements 0 Narrative: somy low temp on blanket movesa ll little lslethargic mumbles moves r - Urinary Catheter Management Indwelling Urethral Catheter Cath placed during this visit: yes, but has since been removed by the nurse Reason for continuing: Not indwelling catheter Insertion date: 05/25/18 Insertion time: 15:00 Removal date: 05/26/18 Removal time: 12:00 Straight Cath placed during this visit: yes Reason for continuing: Not indwelling catheter Insertion date: 06/05/18 Insertion time: 00:20 Condom Cath placed during this visit: no Reason for continuing: Not indwelling catheter Objective Laboratory Results - last 24 hr 06/18/18 06/18/18 06/19/18 11:40 17:12 00:51 POC Glucose 76 99 93 Valproic Acid Phenobarbital 06/19/18 03:50 POC Glucose Valproic Acid 32 L Phenobarbital 3.9 L Review/Management - Review/Management Plan: imp mri and eeg neg on keppra hold all sedatives could be prolonged postictal will fu saturday see if awakens over next few days no apparent reason why he would not - 06/02/18 much better should do well keppra off vent when able 06/05/18 no sz he should bounce back neurowise to prior level of functioning keppra stable neuro 06/07/18 no sz on keppra 1000 bid eeg neg check abg for some inc ms change may need peg? i tai sone no etoh and needs to take his meds lives w daughter she should see that he does 06/08/18 have PT oob recheck eeg lower keppra to 750 bid should be making progress ? chest PT getting dehydrated na 150 06/09/18 a little better today try sinemet see if helps tremor and motor system etoher i dw son will fu eeg ok 06/10/18 no change i would think he should bounce back to prior functioning will need peg short term however maybe a month or two 06/11/18 try ritalin will dw nurse still lethargic will inc ritalin to 10mg i lowered the keppra to 250 bid 06/13/18 more alert on lower keppra i am going to dc keppra dn stay on ritalin and see how does he is at risk for sz but if it is med causing ms change need to know then on saturday i can start something else 06/16/18 looks much more alert try and get oob vimpat 50 bid for now 06/18/18 unfortunately sz yest on keppra 1000 bid pbarb 60bid andvimpat 200 bid looks ok now recheck eeg prob to floor tomorrow if no more sz 06/19/18 on keppra pbarb vpa added yest and vimpat recheck eeg and adjust meds i will accordingly
[2018-06-19] MEDS: Senna/Docusate Sodium 8.6/50 MG Tablet PO SCH ×2 (08:43→20:40)
[2018-06-19] MEDS: PHENobarbital Inj 130 MG/ML Vial IV.PUSH SCH ×2 (08:43→20:40)
[2018-06-19] MEDS: SODIUM CHLOR 0.9% IV.SIG SCH ×2 (08:43→20:41)
[2018-06-19] MEDS: LEVETIRACETAM IV.SIG SCH ×2 (08:43→20:41)
[2018-06-19] MEDS: Chlorhexidine 0.12% Oral Kit 15 ML UDC OROPHARYNG SCH ×2 (08:44→20:41)
[2018-06-19] MEDS: Lacosamide Inj 200 MG in Sodium Chlor 0.9% Inj 100 ML IV.SIG SCH ×2 (09:43→23:16)
--- NOTE | 2018-06-19 12:35 | P.PNPAL ---
Reason for Visit Reason for visit: a. To assist with evaluation and management of symptoms including: confusion, dyspnea b. To assist medical decision maker(s) with: better understanding of current medical conditions; weighing benefits/burdens of medical treatment options; making medical treatment decisions. Subjective Subjective/Interval History: Pt remains minimally responsive. EEG again ordered. Patient is hypotensive, short of breath, sats per nurse went down to 70's at one point this morning. Pt hypothermic on bear hug. Discussion with pt's son, and pt's daughter about pt's clinical condition. They maintain DNR Daughter wanted to inform the rest of the family before going with hospice services. They had also met with attending physician. they understand pt may decline and past tonight. Amenable to comfort meds/ dilaudid prn for dyspnea or pain. They are grateful for the visit. Family/Friend Interactions: see above Advance Directives Health Care Surrogate Name and Number: Carlos Alberto Barnett [phone]; Amber Barnett [phone], Objective Vital Signs: Vital Signs 06/18/18 16:00 06/18/18 20:00 06/18/18 20:59 Temperature 97.5 F L 97.4 F L Pulse Rate 88 77 Respiratory Rate 20 20 Blood Pressure 111/57 L 109/54 L Pulse Oximetry 100 98 06/19/18 00:00 06/19/18 04:00 06/19/18 07:46 Temperature 97 F L 97.4 F L Pulse Rate 68 79 Respiratory Rate Blood Pressure 94/53 L 101/57 L Pulse Oximetry 100 96 97 06/19/18 07:51 06/19/18 08:00 Temperature 97.9 F Pulse Rate 93 H Respiratory Rate 33 H Blood Pressure 112/65 Pulse Oximetry 96 86 L Intake & Output 06/18/18 06/19/18 06/19/18 18:59 06:59 18:59 Intake Total 1760 / 1760 835 / 835 555 / 555 Output Total 625 / 625 500 / 500 Balance 1135 / 1135 335 / 335 555 / 555 Weight 50.4 kg Intake: IV 1760 / 1760 335 / 335 555 / 555 D5W/1/2 NS Inj 1,000 ML @ 60 1000 / 1000 0 / 0 mls/hr IV.CONT .[id number] COUNTS INCLUDE 234 BEDS AT [facility] Rx# :[id number] Azactam Inj 1,000 MG In NS Inj 200 / 200 100 ML @ 200 mls/hr IV.SIG Q8H [facility] Rx#:[id number] Vimpat Inj 200 MG In NS Inj 100 240 / 240 120 / 120 120 / 120 ML @ 120 mls/hr IV.SIG Q12H [facility] Rx#:[id number] Depacon Inj 500 MG In NS Inj 105 / 105 105 / 105 105 / 105 100 ML @ 105 mls/hr IV.SIG Q8H [facility] Rx#:[id number] Keppra Inj 1,000 MG In NS Inj 110 / 110 110 / 110 110 / 110 100 ML @ 440 mls/hr IV.SIG BID [facility] Rx#:[id number] Water Bolus Amount 500 / 500 Output: Urine 500 / 500 Urine Amount (Catheter) 625 / 625 Condom 625 / 625 Other: # Voids 2 Date of Last Bowel Movement 06/17/18 # Bowel Movements 0 Physical Exam: CONSTITUTIONAL/GENERAL: cachectic, frail, minimally responsive SKIN: No jaundice, rashes, or lesions. No wounds seen anteriorly. Skin temperature appropriate. Not diaphoretic. HEAD: Atraumatic. Normocephalic. EYES: eyes closed did not examine. Fundi not examined. ENT: Nose without bleeding or purulent drainage. CARDIOVASCULAR: tachycardic, irr HR, no gallops, or rubs. RESPIRATORY/CHEST: Patient has less rhonchi. GASTROINTESTINAL: Abdomen soft, non-tender, nondistended. No hepato-splenomegaly , or palpable masses. No guarding. Bowel sounds present. GENITOURINARY: Without palpable bladder distension. Martin catheter in place. MUSCULOSKELETAL: + 2 pittingBLE edema NEUROLOGICAL: minimally responsive. Diagnostic Tests Laboratory: Laboratory Results - last 72 hr 06/04/18 06/16/18 06/16/18 09:50 13:06 18:01 WBC RBC Hgb Hct MCV MCH MCHC RDW Plt Count MPV Prelim Diff (Auto) Neut % (Auto) Lymph % (Auto) [place] % (Auto) Eos % (Auto) Baso % (Auto) Neut # (Auto) Lymph # (Auto) [place] # (Auto) Eos # (Auto) Baso # (Auto) WBC Differential Seg Neuts % (Manual) Band Neuts % (Manual) Lymphocytes % (Manual) Monocytes % (Manual) Eosinophils % (Manual) Myelocytes % (Man) Abs Neuts (Manual) Differential Comment Platelet Estimate Platelet Morphology Sodium Potassium Chloride Carbon Dioxide Anion Gap BUN Creatinine Estimated GFR POC Glucose 96 105 Random Glucose Calcium Phosphorus Magnesium Total Bilirubin AST ALT Alkaline Phosphatase Total Protein Albumin Valproic Acid Phenobarbital MTS Gel Crossmatch See Detail 06/16/18 06/16/18 06/17/18 21:45 23:54 06:49 WBC RBC Hgb Hct MCV MCH MCHC RDW Plt Count MPV Prelim Diff (Auto) Neut % (Auto) Lymph % (Auto) [place] % (Auto) Eos % (Auto) Baso % (Auto) Neut # (Auto) Lymph # (Auto) [place] # (Auto) Eos # (Auto) Baso # (Auto) WBC Differential Seg Neuts % (Manual) Band Neuts % (Manual) Lymphocytes % (Manual) Monocytes % (Manual) Eosinophils % (Manual) Myelocytes % (Man) Abs Neuts (Manual) Differential Comment Platelet Estimate Platelet Morphology Sodium Potassium Chloride Carbon Dioxide Anion Gap BUN Creatinine Estimated GFR POC Glucose 116 H 137 H 114 H Random Glucose Calcium Phosphorus Magnesium Total Bilirubin AST ALT Alkaline Phosphatase Total Protein Albumin Valproic Acid Phenobarbital MTS Gel Crossmatch 06/17/18 06/17/18 06/17/18 08:07 08:07 12:15 WBC 18.1 H RBC 3.18 L Hgb 9.4 L Hct 29.2 L MCV 91.9 MCH 29.5 MCHC 32.2 RDW 18.6 H Plt Count 728 H MPV 7.1 Prelim Diff (Auto) Slide review pending Neut % (Auto) 74.9 H Lymph % (Auto) 11.0 [place] % (Auto) 12.8 H Eos % (Auto) 0.9 Baso % (Auto) 0.4 Neut # (Auto) 13.5 H Lymph # (Auto) 2.0 [place] # (Auto) 2.3 H Eos # (Auto) 0.2 Baso # (Auto) 0.1 WBC Differential Manual diff final Seg Neuts % (Manual) 60 Band Neuts % (Manual) 9 H Lymphocytes % (Manual) 8 L Monocytes % (Manual) 21 H Eosinophils % (Manual) 1 Myelocytes % (Man) 1 H Abs Neuts (Manual) 12.7 H Differential Comment . Platelet Estimate High H Platelet Morphology Normal Sodium 135 L Potassium 4.5 Chloride 102 Carbon Dioxide 24.8 Anion Gap 8 BUN 7 Creatinine 0.40 L Estimated GFR Greater than 89 POC Glucose 129 H Random Glucose 100 Calcium 8.1 L Phosphorus 3.3 Magnesium 1.7 Total Bilirubin 0.4 AST 74 H ALT 21 Alkaline Phosphatase 326 H Total Protein 6.1 L Albumin 1.4 L Valproic Acid Phenobarbital MTS Gel Crossmatch 06/17/18 06/17/18 06/18/18 17:50 23:00 03:46 WBC RBC Hgb Hct MCV MCH MCHC RDW Plt Count MPV Prelim Diff (Auto) Neut % (Auto) Lymph % (Auto) [place] % (Auto) Eos % (Auto) Baso % (Auto) Neut # (Auto) Lymph # (Auto) [place] # (Auto) Eos # (Auto) Baso # (Auto) WBC Differential Seg Neuts % (Manual) Band Neuts % (Manual) Lymphocytes % (Manual) Monocytes % (Manual) Eosinophils % (Manual) Myelocytes % (Man) Abs Neuts (Manual) Differential Comment Platelet Estimate Platelet Morphology Sodium Potassium Chloride Carbon Dioxide Anion Gap BUN Creatinine Estimated GFR POC Glucose 112 H 99 94 Random Glucose Calcium Phosphorus Magnesium Total Bilirubin AST ALT Alkaline Phosphatase Total Protein Albumin Valproic Acid Phenobarbital MTS Gel Crossmatch 06/18/18 06/18/18 06/18/18 04:15 04:15 06:19 WBC 9.8 RBC 2.89 L Hgb 8.9 L Hct 26.5 L MCV 91.6 MCH 30.8 MCHC 33.6 RDW 18.0 H Plt Count 475 H D MPV 7.8 Prelim Diff (Auto) Slide review pending Neut % (Auto) 63.7 Lymph % (Auto) 17.7 [place] % (Auto) 13.6 H Eos % (Auto) 2.3 Baso % (Auto) 2.7 H Neut # (Auto) 6.3 Lymph # (Auto) 1.7 [place] # (Auto) 1.3 H Eos # (Auto) 0.2 Baso # (Auto) 0.3 H WBC Differential Manual diff final Seg Neuts % (Manual) 61 Band Neuts % (Manual) 6 Lymphocytes % (Manual) 12 Monocytes % (Manual) 21 H Eosinophils % (Manual) Myelocytes % (Man) Abs Neuts (Manual) 6.6 Differential Comment . Platelet Estimate High H Platelet Morphology Normal Sodium 137 Potassium 4.3 Chloride 106 Carbon Dioxide 26.0 Anion Gap 5 BUN 8 Creatinine 0.33 L Estimated GFR Greater than 89 POC Glucose 87 Random Glucose 77 Calcium 8.3 L Phosphorus 3.7 Magnesium 1.8 Total Bilirubin 0.4 AST 52 H ALT 20 Alkaline Phosphatase 258 H Total Protein 5.8 L Albumin 1.3 L Valproic Acid Phenobarbital Less than 2.1 L MTS Gel Crossmatch 06/18/18 06/18/18 06/19/18 11:40 17:12 00:51 WBC RBC Hgb Hct MCV MCH MCHC RDW Plt Count MPV Prelim Diff (Auto) Neut % (Auto) Lymph % (Auto) [place] % (Auto) Eos % (Auto) Baso % (Auto) Neut # (Auto) Lymph # (Auto) [place] # (Auto) Eos # (Auto) Baso # (Auto) WBC Differential Seg Neuts % (Manual) Band Neuts % (Manual) Lymphocytes % (Manual) Monocytes % (Manual) Eosinophils % (Manual) Myelocytes % (Man) Abs Neuts (Manual) Differential Comment Platelet Estimate Platelet Morphology Sodium Potassium Chloride Carbon Dioxide Anion Gap BUN Creatinine Estimated GFR POC Glucose 76 99 93 Random Glucose Calcium Phosphorus Magnesium Total Bilirubin AST ALT Alkaline Phosphatase Total Protein Albumin Valproic Acid Phenobarbital MTS Gel Crossmatch 06/19/18 06/19/18 03:50 11:49 WBC RBC Hgb Hct MCV MCH MCHC RDW Plt Count MPV Prelim Diff (Auto) Neut % (Auto) Lymph % (Auto) [place] % (Auto) Eos % (Auto) Baso % (Auto) Neut # (Auto) Lymph # (Auto) [place] # (Auto) Eos # (Auto) Baso # (Auto) WBC Differential Seg Neuts % (Manual) Band Neuts % (Manual) Lymphocytes % (Manual) Monocytes % (Manual) Eosinophils % (Manual) Myelocytes % (Man) Abs Neuts (Manual) Differential Comment Platelet Estimate Platelet Morphology Sodium Potassium Chloride Carbon Dioxide Anion Gap BUN Creatinine Estimated GFR POC Glucose 97 Random Glucose Calcium Phosphorus Magnesium Total Bilirubin AST ALT Alkaline Phosphatase Total Protein Albumin Valproic Acid 32 L Phenobarbital 3.9 L MTS Gel Crossmatch Result Diagrams: 06/18/18 04:15 06/18/18 04:15 Imaging: ITS Impressions Head CT 05/25/18 15:22 CONCLUSION: Chronic small vessel ischemic and atrophic changes. Abdomen X-Ray 06/08/18 00:00 CONCLUSION: Nasogastric tube tip in the distal stomach. Liver Ultrasound 06/12/18 00:00 CONCLUSION: 1. Mild hepatic heterogeneity with no focal lesion or intrahepatic biliary ductal dilatation. Findings are nonspecific but could represent early cirrhosis. 2. Gallbladder is decompressed but may contain a small amount of intraluminal sludge. 3. Otherwise negative. Chest X-Ray 06/16/18 00:00 CONCLUSION: Moderate to large bibasilar opacities that have increased from the prior examination. These likely represent pleural effusions with associated volume loss and/or airspace consolidation. The overall pattern can be seen with pulmonary edema. Head MRI 06/18/18 00:00 CONCLUSION: Stable brain. No acute findings. 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 . Has 10 kids. Originally from [place], grew up in [place], has been in [place] for 40 y. Lives with one of his daughters. Some of his children are local. Spiritual: Mormonism non-confucianism, daughter requests inspector watch assembly visit Legal: Pt is not capacitated to make medical decisions. It is unclear if he will regain capacity. He has previously designated son Carlos Alberto Barnett as primary HCS and daughter Amber as secondary. Ethical issues impacting care: none identified Important Contacts: Carlos Alberto Barnett son/primary HCS: [phone] Amber Barnett, daughter/alternate HCS: [phone] or [phone] Prognosis: 72 yo male with seizure disorder since head injury 5 y ago, noncompliance with seizure meds, 50 year hx drinking up to or more than a gallon of wine daily admitted 05/25 after having seizure like activity, intubated in the field. EEG showing encephalopathy. He appears cachectic and malnourished. It is unclear if his encephalopathy will improve completely. His poor nutrition status makes full physical recovery unlikely. He is quite likely to continue having complications such as seizures d/t noncompliance, episodes of withdrawal, aspiration. Code Status: No Code DNR Plan: - LEGAL DECISON MAKER - HCS completed 02/13/17 Natalie Sellersulma secondary - CODE STATUS- DNR. - GOALS - Pt remains minimally responsive. Patient is hypotensive, short of breath, sats per nurse went down to 70's at one point this morning. Pt hypothermic on bear hug. Discussion with pt's son, and pt's daughter about pt's clinical condition. They maintain DNR Son has endorse no peg tube feeding. Daughter wanted to inform the rest of the family before going with hospice services. They had also met with attending physician. they understand pt may decline and past tonight. Amenable to comfort meds/ dilaudid prn for dyspnea or pain. They are grateful for the visit. - SYMPTOMS - * dyspnea - continue to aspiration, even with NG tube. Family amenable to prn dilaudid for dyspnea, continue neb treatment * confusion - multifactorial, long hx etoh abuse, seizure disorder, head injury. ?withdrawal vs seizures vs both? EEG 05/26 showing encephalopathy, no seizure activity.on my eval he was lethargic- Per neurology following. - Palliative care will continue to follow during hospital course as condition evolves, to assist patient/decision-maker with understanding of medical conditions, weighing benefits/burdens of treatment options, for clarification of goals of treatment. Additionally will assist with any symptoms of palliative concern d/w and also seen with attending physician. Attestation Attestation: To help prompt me to consider important information that might be impacting today's encounter and assessment, information from prior notes written by myself or my colleagues may have been "brought forward" into today's note. My signature on this note, however, is an attestation that I personally performed the exam, history, and/or decision-making noted today, and, unless otherwise indicated, the interactions with patient, family, and staff as well as the review of records all occurred today. I also attest that the listed assessment and stated plan reflect my best clinical judgment today based on the combination of historical information, prior notes, and today's exam/ interactions. When time spent is documented, it refers only to time spent today by the signer, or if indicated, combined time spent today by collaborating physician/nurse practitioner.
[2018-06-19] MEDS ORDERED: HYDROmorphone PF Inj 1 MG/ML Ampul IV.PUSH PRN (14:00)
[2018-06-19] MEDS: Hyoscyamine Inj 0.5 MG/ML Ampul IV.PUSH PRN (14:13)
--- NOTE | 2018-06-19 14:35 | P.PNIM ---
Subjective Interval history: DW RN NGT IS FURTHER PULLED OUT WILL GET CHEST XRAY FOR PLACEMENT MAY NEED TO BE REINSERTED PRIOR TO USING AGAIN 06-17 NGT IS WORKING FAILED SWALLOW EVAL AGAIN NO IMPROVEMENT WILL NEED PEG OR HOSPICE FAMILY NEEDS TO MAKE DECISIONS 06-18 TRANSFERRED TO ICU FOR CONTINUOUS EEG IS A DNR STILL HAVING SEIZURES MEDICATIONS HAVE BEEN ADJUSTED BY NEUROLOGY VERY GUARDED PROGNOSIS PALLIATIVE CARE FOLLOWING FAMILY NEEDS TO CONSIDER HOSPICE AND COMFORT MEASURES ONLY AM LABS 06-19 seen and examined has WARMING BLANKET IN PLACE DW FAMILY AND PALLIATIVE CARE WOULD NOT WANT A PEG CHANCE OF HIM PASSING A SWALLOW EVAL IS NIL WANTS TO WATCH ANOTHER DAY LOOKS SEPTIC AND SICK STILL HAVING SEIZURE MEDS ADJUSTED MEDS ADJUSTED BY DR HERNANDEZ Physical Exam Vital signs: Vital Signs 06/18/18 16:00 06/18/18 20:00 06/18/18 20:59 Temperature 97.5 F L 97.4 F L Pulse Rate 88 77 Respiratory Rate 20 20 Blood Pressure 111/57 L 109/54 L Pulse Oximetry 100 98 06/19/18 00:00 06/19/18 04:00 06/19/18 07:46 Temperature 97 F L 97.4 F L Pulse Rate 68 79 Respiratory Rate Blood Pressure 94/53 L 101/57 L Pulse Oximetry 100 96 97 06/19/18 07:51 06/19/18 08:00 Temperature 97.9 F Pulse Rate 93 H Respiratory Rate 33 H Blood Pressure 112/65 Pulse Oximetry 96 86 L Intake & Output 06/18/18 06/19/18 06/19/18 18:59 06:59 18:59 Intake Total 1760 / 1760 835 / 835 555 / 555 Output Total 625 / 625 500 / 500 Balance 1135 / 1135 335 / 335 555 / 555 Weight 50.4 kg Intake: IV 1760 / 1760 335 / 335 555 / 555 D5W/1/2 NS Inj 1,000 ML @ 60 1000 / 1000 0 / 0 mls/hr IV.CONT .[id number] [facility] Rx# :[id number] Azactam Inj 1,000 MG In NS Inj 200 / 200 100 ML @ 200 mls/hr IV.SIG Q8H [facility] Rx#:[id number] Vimpat Inj 200 MG In NS Inj 100 240 / 240 120 / 120 120 / 120 ML @ 120 mls/hr IV.SIG Q12H [facility] Rx#:[id number] Depacon Inj 500 MG In NS Inj 105 / 105 105 / 105 105 / 105 100 ML @ 105 mls/hr IV.SIG Q8H [facility] Rx#:[id number] Keppra Inj 1,000 MG In NS Inj 110 / 110 110 / 110 110 / 110 100 ML @ 440 mls/hr IV.SIG BID [facility]PHONSE Rx#:[id number] Water Bolus Amount 500 / 500 Output: Urine 500 / 500 Urine Amount (Catheter) 625 / 625 Condom 625 / 625 Other: # Voids 2 Date of Last Bowel Movement 06/17/18 # Bowel Movements 0 Narrative: GENERAL: This is a thin male, in no apparent distress laying in bed with simple mask. NG-tube in place CARDIOVASCULAR: Regular rate and rhythm RESPIRATORY: Bilateral rhonchi GASTROINTESTINAL: Abdomen soft, non-tender, nondistended. Normal active bowel sounds MUSCULOSKELETAL: Extremities without clubbing, cyanosis, trace edema NEURO: Sleepy, opens eyes with voice however confused, did not follow commands. Not able to assess insight and judgment not able to assess mood or behavior Nonverbal at this time NEKacie GUTIERREZ-WARMING BLANKET IN PLACE - Urinary Catheter Management Indwelling Urethral Catheter Cath placed during this visit: yes, but has since been removed by the nurse Reason for continuing: Not indwelling catheter Insertion date: 05/25/18 Insertion time: 15:00 Removal date: 05/26/18 Removal time: 12:00 Straight Cath placed during this visit: yes Reason for continuing: Not indwelling catheter Insertion date: 06/05/18 Insertion time: 00:20 Condom Cath placed during this visit: no Reason for continuing: Not indwelling catheter Results - Labs CBC & Chem 7: 06/18/18 04:15 06/18/18 04:15 Laboratory Results - last 24 hr 06/04/18 06/18/18 06/19/18 09:50 17:12 00:51 POC Glucose 99 93 Valproic Acid Phenobarbital MTS Gel Crossmatch See Detail 06/19/18 06/19/18 03:50 11:49 POC Glucose 97 Valproic Acid 32 L Phenobarbital 3.9 L MTS Gel Crossmatch - Imaging Impressions Head MRI 06/18/18 00:00 CONCLUSION: Stable brain. No acute findings. - Procedures EEGS Assessment and Plan - Plan Alcohol dependence Alcohol withdrawal Seizure disorder with active seizures- improving. Medication noncompliance Acute combined toxic and metabolic encephalopathy-persists. Frequent neurochecks with continued confusion which persists. Patient is less agitated today and will attempt swallow evaluation.. Continue with Keppra per Neuro EEG 05/26: negative for ictal activity. generalized slowing. Repeat EEG ordered on 05/29 in view of tremors noted in right upper extremity. Appreciate neurology consultation and recommendations. On thiamine and multivitamins Head CT negative for acute disease 05/25. MRI brain: Remote left temporal infarct, atrophy 05/27 Repeat ammonia level not elevated. Neurology recommended starting trial of Adderall Patient's mental status waxes and wanes however has not had much improvement. SEEMS TO BE IN STATUS SEIZURES AT THIS TIME ON CONTINUOUS EEG MOVED TO ICU DUE TO SEIZURES SEIZURE MEDS BEING ADJUSTED BY NEUROLOGY SEIZURE MEDS STILL BEING ADJUSTED BY NEUROLOGY Acute hypoxic and hypercarbic respiratory failure Head of bed elevated Continue with oxygen support and keep sats >92% Bronchodilators, HOSPICE IN THE TALKS WITH PALLIATIVE CARE INPUT Severe dysphasia and high risk for aspirationcontinue n.p.o. and speech therapy ; patient reaspirated 06/12 and pulled NG tube out, patient failed a swallow evaluation. Family does not want PEG tube. Will attempt to reinsert NG tube today IV fluids with D5 half-normal saline; may need to consider PPN although this is not a good long-term solution if unable to insert NG tube.. NGT SEEMS TO BE FURTHER OUT THAN IT SHOULD BE WILL CHECK CHEST XRAY- GETTING TUBE FEEDS TOLERATING BUT NO IMPROVEMENT IN HIS SWALLOWING STILL FAILING SWALLOW EVALUATIONS WITH SPEECH urinary retention - no indication for tubbs. straight cath q6h. Monitor renal function. I/O's, electrolytes replacement per protocol Hypernatremia Change Free water increased to 250 every 6 hour due to hypernatremia, this has improved when patient was able to have NG tube. Alcoholic cirrhosis Acute protein calorie malnutritionsevere Severe hypokalemia- resolving.Replete today Acute intravascular volume depletion- resolving. Hyponatremia- resolved and now with hypernatremia Dehydration- resolving. ICU electrolyte protocol NPO by speech, continue tube feeds - Jevity 1.5 with goal rate 60ml/hr once NG tube can be replaced Previous failed swallow evaluation with high aspiration risk yesterday, patient consistently has failed swallow evaluation. NEEDS HOSPICE FAMILY DOES NOT WANT PEG Healthcare acquired pneumonia with aspiration pneumonia UTI noted. Urine cx: Kleb pneumonia on 05/29, Continue Aztreonam and Vanco per ID, day number #8 06/04, Urine, Blood culture, sputum cx: NGTD ID is following. Leukocytosis trending down Anemia, chronic likely due to history of cirrhosis and chronic disease monitor CBC, s/p transfuse 2u PRBC 06/04. Hyperglycemia of critical illness and now hypoglycemia due to n.p.o. status will start D5W -- SSI Prophylaxis: GI Prophylaxis Pepcid DVT Prophylaxis -- SCDs Lovenox held for anemia requiring blood transfusion APPEARS TO HAVE SIRS WITH LOW BLOOD PRESSURE AND LOW TEMPS AND TACHYCARDIA Lines: Peripheral IVs Palliative care is following This is a complex case with patient having recurrent aspiration with persistent metabolic and alcoholic encephalopathy. Patient is a DNR status Discussed with son at bedside who wants continue medical treatment up to DNR status, if patient does continue to decompensate will transition to hospice. Discharge Planning: May need long-term placement if clinically improves. CANNOT PLACE WITH NGT IN PLACE If continues to decompensate will need to transition to hospice. HOSPICE PROBABLY IN HIS FUTURE Code Status: DNR Discussed Condition With: SON AND DAUGHTER AND PALLIATIVE CARE TODAY Discharge Planning: PENDING FAMILY DECISIONS ON PEG VS NGT NO IMPROVEMENT WITH SWALLOW TEAM HOSPICE? PALLIATIVE CARE CONSULT ?STILL SEIZING
--- NOTE | 2018-06-20 00:37 | MG ---
cc: Missael Walsh MD EEG NUMBER: [id number] Left F-T polyspike discharges at 1 Hz at times. Background delta activity. Limited drive with photic stimulation. INTERPRETATION: Left-sided PLEDS. MD SATNAM Huff/venu/nahomy , 09:54 PM , 09:59 PM MTDJefferson
[2018-06-20] MEDS: Insulin NovoLIN Regular Correctional Sugar Inj SQ SCH ×3 (01:05→11:33)
[2018-06-20] MEDS: Oral Hygiene Kit OROPHARYNG SCH ×3 (04:18→16:44)
[2018-06-20] MEDS: Valproate Inj 500 MG in Sodium Chlor 0.9% Inj 100 ML IV.SIG SCH (04:18)
[2018-06-20 05:53] LABS: Baso # (Auto) 0.1 th/mm3 (0.0-0.2); Baso % (Auto) 1.3 % (0.0-2.0); Eos # (Auto) 0.1 th/mm3 (0.0-0.4); Eos % (Auto) 0.8 % (0.0-4.0); Hematocrit 23.5 % (39.0-51.0); Lymph # (Auto) 2.1 th/mm3 (1.0-4.8); Lymph % (Auto) 25.8 % (9.0-44.0); Mean Corpuscular HGB Conc 34.2 % (32.0-36.0); Mean Corpuscular Hemoglobin 30.5 pg (27.0-34.0); Mean Corpuscular Volume 89.1 fL (80.0-100.0); Mean Platelet Volume 7.2 fL (7.0-11.0); Mono # (Auto) 0.9 th/mm3 (0.0-0.9); Mono % (Auto) 11.3 % (0.0-8.0); Neut % (Auto) 60.8 % (16.0-70.0); Platelet Count 587 th/mm3 (150-450); Red Blood Count 2.64 mil/mm3 (4.50-5.90); Red Cell Distribution Width 17.7 % (11.6-17.2); White Blood Count 8.2 th/mm3 (4.0-11.0)
[2018-06-20 06:14] LABS: Alanine Aminotransferase 16 U/L (12-78); Albumin 1.4 g/dL (3.4-5.0); Anion Gap 8 meq/L (5-15); Aspartate Aminotransferase 44 U/L (15-37); Blood Urea Nitrogen 7 mg/dL (7-18); Calcium 7.8 mg/dL (8.5-10.1); Carbon Dioxide 25.6 meq/L (21.0-32.0); Chloride 109 meq/L (98-107); Glomerular Filtration Rate Greater Than 89 mL/min (>89); Glucose,Random 78 mg/dL (74-106); Magnesium 1.7 mg/dL (1.5-2.5); Potassium 3.8 meq/L (3.5-5.1); Sodium 143 meq/L (136-145)
[2018-06-20 06:18] LABS: Alkaline Phosphatase 216 U/L (45-117); Phosphorus 3.4 mg/dL (2.5-4.9); Total Protein 5.6 g/dL (6.4-8.2); Valproic Acid 38 mcg/mL (50-100)
[2018-06-20] MEDS: Hyoscyamine Inj 0.5 MG/ML Ampul IV.PUSH PRN ×3 (07:30→20:40)
--- NOTE | 2018-06-20 07:58 | P.PNNEU ---
Subjective Subjective Comments: i dw family he did blink eyes yest to command his eeg stil shows left sided d/cs on keppra 1000 bid vpa 500 bid level 38 vimpat 200 bid and pbarb 90 bid level 10 Active Medications: Active Medications Acetaminophen (Tylenol Liq) 650 mg PO Q6H PRN PRN Reason: SEE DOSE INSTRUCTIONS Last Admin: 06/05/18 04:47 Dose: 650 mg Al Hydroxide/Mg Hydroxide (Milk Of Magnesia Liq) 30 ml PO Q12H PRN PRN Reason: Mild Constipation Albuterol (Duoneb Neb (Prn)) 1 ampul NEB Q2HR NEB PRN PRN Reason: WHEEZING Bisacodyl (Dulcolax Supp) 10 mg RECTAL DAILY PRN PRN Reason: SEVERE CONSITIPATION Chlorhexidine Gluconate (Peridex 0.12% Oral Kit) 15 ml OROPHARYNG BID@0800, 1999 [facility] Last Admin: 06/19/18 20:41 Dose: 15 ml Dextrose (D50w Vial) 50 ml IV.PUSH UNSCH PRN PRN Reason: PER HYPOGLYCEMIA PROTOCOL Enoxaparin Sodium (Lovenox Inj) 40 mg SQ Q24H [facility] Last Admin: 06/03/18 20:29 Dose: 40 mg Flumazenil (Romazecon Inj) 0.2 mg IV.PUSH Q1M PRN PRN Reason: OVERSEDATION Glucagon (Glucagon Inj) 1 mg OTHER PRN PRN PRN Reason: for Hypoglycemia Protocol Hydromorphone HCl (Dilaudid Pf Inj) 0.5 mg IV.PUSH Q3H PRN PRN Reason: SEE LABEL COMMENTS Hyoscyamine (Levsin Inj) 0.25 mg IV.PUSH Q6HR PRN PRN Reason: SECRETIONS Last Admin: 06/20/18 07:30 Dose: 0.25 mg Sodium Phosphate 30 mmol/ (Sodium Chloride) 260 mls @ 42 mls/hr IV.SIG UNSCH PRN PRN Reason: For Phosphorus < 2.5 mg/dL Last Infusion: 05/27/18 14:58 Dose: Infused Dextrose/Sodium Chloride (D5w/1/2 Ns Inj) 1,000 mls @ 60 mls/hr IV.CONT .[id number] [facility] Last Admin: 06/19/18 16:34 Dose: Not Given Lacosamide 200 mg/ Sodium (Chloride) 120 mls @ 120 mls/hr IV.SIG Q12H [facility] Last Infusion: 06/20/18 05:32 Dose: Infused Levetiracetam 1,000 mg/ Sodium (Chloride) 110 mls @ 440 mls/hr IV.SIG BID ALPHONSE Last Infusion: 06/19/18 20:56 Dose: Infused Valproate Sodium 750 mg/ (Sodium Chloride) 107.5 mls @ 105 mls/hr IV.SIG Q8H [facility]ON[facility] Fosphenytoin Sodium 100 mgpe/ (Sodium Chloride) 52 mls @ 208 mls/hr IV.SIG Q8HR [facility] Insulin Human Regular (Novolin R Correctional Sugar Inj) 0 units SQ Q6HR [facility]; Protocol Last Admin: 06/20/18 07:23 Dose: Not Given Lactulose (Lactulose Liq) 30 ml PO DAILY PRN PRN Reason: SEVERE CONSITIPATION Miscellaneous (Pill Splitter) 1 each OTHER UNSCH PRN PRN Reason: PILL SPLITTER Ondansetron HCl (Zofran Inj) 4 mg IV.PUSH Q6H PRN PRN Reason: NAUSEA OR VOMITING Phenobarbital Sodium (Luminal Inj) 120 mg IV.PUSH BID [facility] Senna/Docusate Sodium (Anupama-Colace) 1 tab PO BID [facility] Last Admin: 06/19/18 20:40 Dose: 1 tab Sennosides (Senokot) 17.2 mg PO Q12H PRN PRN Reason: Moderate Constipation Sodium Chloride (Ns Flush) 2 ml IV.FLUSH BID [facility] Last Admin: 06/19/18 20:40 Dose: 2 ml Sodium Chloride (Ns Flush) 2 ml IV.FLUSH PRN PRN PRN Reason: FLUSH AFTER USING IV ACCESS Last Admin: 06/01/18 00:10 Dose: 2 ml Sterile Water (Free Water) 250 ml G-TUBE Q6HR [facility] Last Admin: 06/20/18 07:22 Dose: Not Given Thiamine HCl (Vitamin B1) 100 mg PO DAILY [facility] Last Admin: 06/19/18 08:43 Dose: 100 mg Allergies/Adverse Reactions: Allergies Allergy/AdvReac Type Severity Reaction Status Date / Time No Known Allergies Allergy Unverified 06/19/18 23:00 Physical Exam Vital signs: Vital Signs 06/19/18 08:00 06/19/18 12:00 06/19/18 16:00 Temperature 97.9 F 97.6 F 98.3 F Pulse Rate 93 H 87 88 Respiratory Rate 33 H 21 12 Blood Pressure 112/65 95/58 L 91/54 L Pulse Oximetry 86 L 84 L 99 06/19/18 20:00 06/19/18 20:07 06/20/18 00:00 Temperature 97.7 F 98.5 F Pulse Rate 92 H 97 H Respiratory Rate 22 12 Blood Pressure 97/50 L 101/59 L Pulse Oximetry 99 100 96 06/20/18 04:00 06/20/18 07:37 Temperature 98.1 F Pulse Rate 101 H Respiratory Rate 25 H Blood Pressure 102/58 L Pulse Oximetry 96 99 Intake & Output 06/19/18 06/20/18 06/20/18 18:59 06:59 18:59 Intake Total 1160 / 1160 795 / 795 Output Total 450 / 450 Balance 1160 / 1160 345 / 345 Intake: IV 660 / 660 440 / 440 Vimpat Inj 200 MG In NS Inj 100 120 / 120 120 / 120 ML @ 120 mls/hr IV.SIG Q12H [facility] Rx#:[id number] Depacon Inj 500 MG In NS Inj 210 / 210 210 / 210 100 ML @ 105 mls/hr IV.SIG Q8H [facility] Rx#:[id number] Keppra Inj 1,000 MG In NS Inj 110 / 110 110 / 110 100 ML @ 440 mls/hr IV.SIG BID [facility]ON[facility] Rx#:[id number] Tube Feeding 355 / 355 Tube Irrigant 500 / 500 Output: Urine Amount (Catheter) 450 / 450 Condom 450 / 450 Other: # Voids 2 Narrative: eyes closed on heating blanket - Urinary Catheter Management Indwelling Urethral Catheter Cath placed during this visit: yes, but has since been removed by the nurse Reason for continuing: Not indwelling catheter Insertion date: 05/25/18 Insertion time: 15:00 Removal date: 05/26/18 Removal time: 12:00 Straight Cath placed during this visit: yes Reason for continuing: Not indwelling catheter Insertion date: 06/05/18 Insertion time: 00:20 Condom Cath placed during this visit: no Reason for continuing: Not indwelling catheter Objective Laboratory Results - last 24 hr 06/04/18 06/19/18 06/19/18 09:50 11:49 17:19 WBC RBC Hgb Hct MCV MCH MCHC RDW Plt Count MPV Neut % (Auto) Lymph % (Auto) Delta % (Auto) Eos % (Auto) Baso % (Auto) Neut # (Auto) Lymph # (Auto) Delta # (Auto) Eos # (Auto) Baso # (Auto) WBC Differential Differential Comment Sodium Potassium Chloride Carbon Dioxide Anion Gap BUN Creatinine Estimated GFR POC Glucose 97 82 Random Glucose Calcium Phosphorus Magnesium Total Bilirubin AST ALT Alkaline Phosphatase Total Protein Albumin Valproic Acid Phenobarbital MTS Gel Crossmatch See Detail 06/20/18 06/20/18 06/20/18 00:23 04:56 04:56 WBC 8.2 RBC 2.64 L Hgb 8.0 L Hct 23.5 L MCV 89.1 MCH 30.5 MCHC 34.2 RDW 17.7 H Plt Count 587 H MPV 7.2 Neut % (Auto) 60.8 Lymph % (Auto) 25.8 Delta % (Auto) 11.3 H Eos % (Auto) 0.8 Baso % (Auto) 1.3 Neut # (Auto) 5.0 Lymph # (Auto) 2.1 Delta # (Auto) 0.9 Eos # (Auto) 0.1 Baso # (Auto) 0.1 WBC Differential . Differential Comment Auto diff final Sodium 143 Potassium 3.8 Chloride 109 H Carbon Dioxide 25.6 Anion Gap 8 BUN 7 Creatinine 0.43 L Estimated GFR Greater than 89 POC Glucose 100 Random Glucose 78 Calcium 7.8 L Phosphorus 3.4 Magnesium 1.7 Total Bilirubin 0.3 AST 44 H ALT 16 Alkaline Phosphatase 216 H Total Protein 5.6 L Albumin 1.4 L Valproic Acid 38 L Phenobarbital 10.0 L MTS Gel Crossmatch Review/Management - Review/Management Plan: imp mri and eeg neg on keppra hold all sedatives could be prolonged postictal will fu saturday see if awakens over next few days no apparent reason why he would not - 06/02/18 much better should do well keppra off vent when able 06/05/18 no sz he should bounce back neurowise to prior level of functioning keppra stable neuro 06/07/18 no sz on keppra 1000 bid eeg neg check abg for some inc ms change may need peg? i dw sone no etoh and needs to take his meds lives w daughter she should see that he does 06/08/18 have PT oob recheck eeg lower keppra to 750 bid should be making progress ? chest PT getting dehydrated na 150 06/09/18 a little better today try sinemet see if helps tremor and motor system etoher i dw son will fu eeg ok 06/10/18 no change i would think he should bounce back to prior functioning will need peg short term however maybe a month or two 06/11/18 try ritalin will dw nurse still lethargic will inc ritalin to 10mg i lowered the keppra to 250 bid 06/13/18 more alert on lower keppra i am going to dc keppra dn stay on ritalin and see how does he is at risk for sz but if it is med causing ms change need to know then on saturday i can start something else 06/16/18 looks much more alert try and get oob vimpat 50 bid for now 06/18/18 unfortunately sz yest on keppra 1000 bid pbarb 60bid andvimpat 200 bid looks ok now recheck eeg prob to floor tomorrow if no more sz 06/19/18 on keppra pbarb vpa added yest and vimpat recheck eeg and adjust meds i will accordingly 06/20/18 i have added dilantin 100 tid and inc pbarb to 120 tid and follow levels and check daily eeg overweekend will have neuro fu eeg persists with left sz activity
[2018-06-20] MEDS: Fosphenytoin Inj 100 MGPE in Sodium Chlor 0.9% Inj 50 ML IV.SIG SCH ×2 (08:29→16:37)
[2018-06-20] MEDS: Senna/Docusate Sodium 8.6/50 MG Tablet PO SCH (08:30)
[2018-06-20] MEDS: PHENobarbital Inj 130 MG/ML Vial IV.PUSH SCH ×2 (08:31→20:38)
[2018-06-20] MEDS: Chlorhexidine 0.12% Oral Kit 15 ML UDC OROPHARYNG SCH (08:31)
[2018-06-20] MEDS: Dextrose 5%/NaCl 0.45% Inj 1,000 ML IV.CONT SCH (08:34)
[2018-06-20] MEDS: SODIUM CHLOR 0.9% IV.SIG SCH ×2 (09:18→20:36)
[2018-06-20] MEDS: LEVETIRACETAM IV.SIG SCH ×2 (09:18→20:36)
[2018-06-20] MEDS: Lacosamide Inj 200 MG in Sodium Chlor 0.9% Inj 100 ML IV.SIG SCH ×2 (09:55→22:09)
--- NOTE | 2018-06-20 11:10 | P.PNPAL ---
Reason for Visit Reason for visit: a. To assist with evaluation and management of symptoms including: confusion, dyspnea, debility b. To assist medical decision maker(s) with: better understanding of current medical conditions; weighing benefits/burdens of medical treatment options; making medical treatment decisions. Subjective Subjective/Interval History: Dual visit with home hospice rn Jack. Pt in bed, on non-rebreather, still in kathleen hugger. 15L o2, fio2 100% sat 100. Tachypneic. Did not rouse to my exam. Still failing swallow eval. Albumin 1.4. TF running @ goal rate. EEG showed left side seizure activity. Neuro adjusting and adding seizure meds. NO sign of pain noted on exam. Family/Friend Interactions: Spoke with [facility] Carlos Alberto and Amber. They acknowledge pt likely at end of life. THey want him to be comfortable but they still do not want to enroll him in hospice. "My mother naturally with no pain meds." Advance Directives Health Care Surrogate Name and Number: Carlos Alberto Barnett [phone]; Amber Barnett [phone], Objective Vital Signs: Vital Signs 06/19/18 12:00 06/19/18 16:00 06/19/18 20:00 Temperature 97.6 F 98.3 F 97.7 F Pulse Rate 87 88 92 H Respiratory Rate 21 12 22 Blood Pressure 95/58 L 91/54 L 97/50 L Pulse Oximetry 84 L 99 99 06/19/18 20:07 06/20/18 00:00 06/20/18 04:00 Temperature 98.5 F 98.1 F Pulse Rate 97 H 101 H Respiratory Rate 12 25 H Blood Pressure 101/59 L 102/58 L Pulse Oximetry 100 96 96 06/20/18 07:37 06/20/18 08:00 06/20/18 10:18 Temperature 98.4 F Pulse Rate 93 H Respiratory Rate 26 H Blood Pressure 120/72 Pulse Oximetry 99 100 100 Intake & Output 06/19/18 06/20/18 06/20/18 18:59 06:59 18:59 Intake Total 1160 / 1160 795 / 795 802 / 802 Output Total 450 / 450 Balance 1160 / 1160 345 / 345 802 / 802 Intake: IV 660 / 660 440 / 440 802 / 802 D5W/1/2 NS Inj 1,000 ML @ 60 750 / 750 mls/hr IV.CONT .[id number] ALPHONSE Rx# :[id number] Cerebyx Inj 100 MGPE In NS Inj 52 / 52 50 ML @ 208 mls/hr IV.SIG Q8H ALPHONSE Rx#:[id number] Vimpat Inj 200 MG In NS Inj 100 120 / 120 120 / 120 ML @ 120 mls/hr IV.SIG Q12H ALPHONSE Rx#:[id number] Depacon Inj 500 MG In NS Inj 210 / 210 210 / 210 100 ML @ 105 mls/hr IV.SIG Q8H ALPHONSE Rx#:[id number] Keppra Inj 1,000 MG In NS Inj 110 / 110 110 / 110 100 ML @ 440 mls/hr IV.SIG BID ALPHONSE Rx#:[id number] Tube Feeding 355 / 355 Tube Irrigant 500 / 500 Output: Urine Amount (Catheter) 450 / 450 Condom 450 / 450 Other: # Voids 2 Physical Exam: CONSTITUTIONAL/GENERAL: cachectic, frail, minimally responsive SKIN: No jaundice, rashes, or lesions. No wounds seen anteriorly. Skin temperature appropriate. Not diaphoretic. HEAD: Atraumatic. Normocephalic. EYES: eyes closed did not examine. Fundi not examined. ENT: Nose without bleeding or purulent drainage. CARDIOVASCULAR: tachycardic, irr HR, no gallops, or rubs. RESPIRATORY/CHEST: Patient has less rhonchi. GASTROINTESTINAL: Abdomen soft, non-tender, nondistended. No hepato-splenomegaly , or palpable masses. No guarding. Bowel sounds faint. GENITOURINARY: Without palpable bladder distension. Martin catheter in place. MUSCULOSKELETAL: no clubbing cyanosis or edema NEUROLOGICAL: Obtunded Diagnostic Tests Laboratory: Laboratory Results - last 72 hr 06/04/18 06/17/18 06/17/18 09:50 12:15 17:50 WBC RBC Hgb Hct MCV MCH MCHC RDW Plt Count MPV Prelim Diff (Auto) Neut % (Auto) Lymph % (Auto) [place] % (Auto) Eos % (Auto) Baso % (Auto) Neut # (Auto) Lymph # (Auto) [place] # (Auto) Eos # (Auto) Baso # (Auto) WBC Differential Seg Neuts % (Manual) Band Neuts % (Manual) Lymphocytes % (Manual) Monocytes % (Manual) Abs Neuts (Manual) Differential Comment Platelet Estimate Platelet Morphology Sodium Potassium Chloride Carbon Dioxide Anion Gap BUN Creatinine Estimated GFR POC Glucose 129 H 112 H Random Glucose Calcium Phosphorus Magnesium Total Bilirubin AST ALT Alkaline Phosphatase Total Protein Albumin Valproic Acid Phenobarbital MTS Gel Crossmatch See Detail 06/17/18 06/18/18 06/18/18 23:00 03:46 04:15 WBC 9.8 RBC 2.89 L Hgb 8.9 L Hct 26.5 L MCV 91.6 MCH 30.8 MCHC 33.6 RDW 18.0 H Plt Count 475 H D MPV 7.8 Prelim Diff (Auto) Slide review pending Neut % (Auto) 63.7 Lymph % (Auto) 17.7 [place] % (Auto) 13.6 H Eos % (Auto) 2.3 Baso % (Auto) 2.7 H Neut # (Auto) 6.3 Lymph # (Auto) 1.7 [place] # (Auto) 1.3 H Eos # (Auto) 0.2 Baso # (Auto) 0.3 H WBC Differential Manual diff final Seg Neuts % (Manual) 61 Band Neuts % (Manual) 6 Lymphocytes % (Manual) 12 Monocytes % (Manual) 21 H Abs Neuts (Manual) 6.6 Differential Comment . Platelet Estimate High H Platelet Morphology Normal Sodium Potassium Chloride Carbon Dioxide Anion Gap BUN Creatinine Estimated GFR POC Glucose 99 94 Random Glucose Calcium Phosphorus Magnesium Total Bilirubin AST ALT Alkaline Phosphatase Total Protein Albumin Valproic Acid Phenobarbital MTS Gel Crossmatch 06/18/18 06/18/18 06/18/18 04:15 06:19 11:40 WBC RBC Hgb Hct MCV MCH MCHC RDW Plt Count MPV Prelim Diff (Auto) Neut % (Auto) Lymph % (Auto) [place] % (Auto) Eos % (Auto) Baso % (Auto) Neut # (Auto) Lymph # (Auto) [place] # (Auto) Eos # (Auto) Baso # (Auto) WBC Differential Seg Neuts % (Manual) Band Neuts % (Manual) Lymphocytes % (Manual) Monocytes % (Manual) Abs Neuts (Manual) Differential Comment Platelet Estimate Platelet Morphology Sodium 137 Potassium 4.3 Chloride 106 Carbon Dioxide 26.0 Anion Gap 5 BUN 8 Creatinine 0.33 L Estimated GFR Greater than 89 POC Glucose 87 76 Random Glucose 77 Calcium 8.3 L Phosphorus 3.7 Magnesium 1.8 Total Bilirubin 0.4 AST 52 H ALT 20 Alkaline Phosphatase 258 H Total Protein 5.8 L Albumin 1.3 L Valproic Acid Phenobarbital Less than 2.1 L MTS Gel Crossmatch 06/18/18 06/19/18 06/19/18 17:12 00:51 03:50 WBC RBC Hgb Hct MCV MCH MCHC RDW Plt Count MPV Prelim Diff (Auto) Neut % (Auto) Lymph % (Auto) [place] % (Auto) Eos % (Auto) Baso % (Auto) Neut # (Auto) Lymph # (Auto) [place] # (Auto) Eos # (Auto) Baso # (Auto) WBC Differential Seg Neuts % (Manual) Band Neuts % (Manual) Lymphocytes % (Manual) Monocytes % (Manual) Abs Neuts (Manual) Differential Comment Platelet Estimate Platelet Morphology Sodium Potassium Chloride Carbon Dioxide Anion Gap BUN Creatinine Estimated GFR POC Glucose 99 93 Random Glucose Calcium Phosphorus Magnesium Total Bilirubin AST ALT Alkaline Phosphatase Total Protein Albumin Valproic Acid 32 L Phenobarbital 3.9 L MTS Gel Crossmatch 06/19/18 06/19/18 06/20/18 11:49 17:19 00:23 WBC RBC Hgb Hct MCV MCH MCHC RDW Plt Count MPV Prelim Diff (Auto) Neut % (Auto) Lymph % (Auto) [place] % (Auto) Eos % (Auto) Baso % (Auto) Neut # (Auto) Lymph # (Auto) [place] # (Auto) Eos # (Auto) Baso # (Auto) WBC Differential Seg Neuts % (Manual) Band Neuts % (Manual) Lymphocytes % (Manual) Monocytes % (Manual) Abs Neuts (Manual) Differential Comment Platelet Estimate Platelet Morphology Sodium Potassium Chloride Carbon Dioxide Anion Gap BUN Creatinine Estimated GFR POC Glucose 97 82 100 Random Glucose Calcium Phosphorus Magnesium Total Bilirubin AST ALT Alkaline Phosphatase Total Protein Albumin Valproic Acid Phenobarbital MTS Gel Crossmatch 06/20/18 06/20/18 04:56 04:56 WBC 8.2 RBC 2.64 L Hgb 8.0 L Hct 23.5 L MCV 89.1 MCH 30.5 MCHC 34.2 RDW 17.7 H Plt Count 587 H MPV 7.2 Prelim Diff (Auto) Neut % (Auto) 60.8 Lymph % (Auto) 25.8 [place] % (Auto) 11.3 H Eos % (Auto) 0.8 Baso % (Auto) 1.3 Neut # (Auto) 5.0 Lymph # (Auto) 2.1 [place] # (Auto) 0.9 Eos # (Auto) 0.1 Baso # (Auto) 0.1 WBC Differential . Seg Neuts % (Manual) Band Neuts % (Manual) Lymphocytes % (Manual) Monocytes % (Manual) Abs Neuts (Manual) Differential Comment Auto diff final Platelet Estimate Platelet Morphology Sodium 143 Potassium 3.8 Chloride 109 H Carbon Dioxide 25.6 Anion Gap 8 BUN 7 Creatinine 0.43 L Estimated GFR Greater than 89 POC Glucose Random Glucose 78 Calcium 7.8 L Phosphorus 3.4 Magnesium 1.7 Total Bilirubin 0.3 AST 44 H ALT 16 Alkaline Phosphatase 216 H Total Protein 5.6 L Albumin 1.4 L Valproic Acid 38 L Phenobarbital 10.0 L MTS Gel Crossmatch Result Diagrams: 06/20/18 04:56 06/20/18 04:56 Imaging: ITS Impressions Head CT 05/25/18 15:22 CONCLUSION: Chronic small vessel ischemic and atrophic changes. Abdomen X-Ray 06/08/18 00:00 CONCLUSION: Nasogastric tube tip in the distal stomach. Liver Ultrasound 06/12/18 00:00 CONCLUSION: 1. Mild hepatic heterogeneity with no focal lesion or intrahepatic biliary ductal dilatation. Findings are nonspecific but could represent early cirrhosis. 2. Gallbladder is decompressed but may contain a small amount of intraluminal sludge. 3. Otherwise negative. Chest X-Ray 06/16/18 00:00 CONCLUSION: Moderate to large bibasilar opacities that have increased from the prior examination. These likely represent pleural effusions with associated volume loss and/or airspace consolidation. The overall pattern can be seen with pulmonary edema. Head MRI 06/18/18 00:00 CONCLUSION: Stable brain. No acute findings. 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 . Has 10 kids. Originally from [place], grew up in [place], has been in [place] for 40 y. Lives with one of his daughters. Some of his children are local. Spiritual: Christianity non-anabaptism, daughter requests it senior analyst visit Legal: Pt is not capacitated to make medical decisions. It is unclear if he will regain capacity. He has previously designated son Carlos Alberto Barnett as primary HCS and daughter Amber as secondary. Ethical issues impacting care: none identified Important Contacts: Carlos Alberto Barnett, son/primary HCS: [phone] Amber Barnett, daughter/alternate HCS: [phone] or [phone] Prognosis: 72 yo male with seizure disorder since head injury 5 y ago, noncompliance with seizure meds, 50 year hx drinking up to or more than a gallon of wine daily admitted 05/25 after having seizure like activity, intubated in the field. EEG showing encephalopathy. He appears cachectic and malnourished. It is unclear if his encephalopathy will improve completely. His poor nutrition status makes full physical recovery unlikely. He is quite likely to continue having complications such as seizures d/t noncompliance, episodes of withdrawal, aspiration. Code Status: No Code DNR Plan: - LEGAL DECISON MAKER - [facility] completed 02/13/17 Amber Sellers secondary - CODE STATUS- DNR. - GOALS - Pt declining. Spoke with [facility] Dylon. They acknowledge pt likely at end of life. THey want him to be comfortable but they still do not want to enroll him in hospice. "My mother naturally with no pain meds." - SYMPTOMS - * dyspnea - 2/2 aspiration. Lung sounds coarse, tachypneic. Now on 15L o2 via nonrebreather, fio2 100o%. has prn duonebs, 0.5 mg IV dilaudid q3h PRN, this has not been used yet. will add PRN ativan q6h 0.5 mg mild anxiety or dyspnea; 1 mg moderate to severe anxiety or dyspnea * confusion - multifactorial, long hx etoh abuse, seizure disorder, head injury. obtunded, did not rouse to exam. ?withdrawal vs seizures vs both? EEG showed some szr activity, neuro continuing to adjust seizure meds. * debility - 2/2 poor nutrition status, prolonged bedbound status. failing swallow evals. unlikely he will regain ability to swallow w/o aspiration. albumin 1.4. -d/w attending Dr. Welch - d/w RN - Palliative care will continue to follow during hospital course as condition evolves, to assist patient/decision-maker with understanding of medical conditions, weighing benefits/burdens of treatment options, for clarification of goals of treatment. Additionally will assist with any symptoms of palliative concern
[2018-06-20] MEDS: Valproate Inj 750 MG in Sodium Chlor 0.9% Inj 100 ML IV.SIG SCH ×2 (11:22→17:39)
--- NOTE | 2018-06-20 14:23 | P.DIET ---
Nutritional Evaluation Type of nutrition evaluation: follow-up Nutrition consult regarding: Tube Feeding [place] [facility] [place] - Diagnosis Unresponsive, Breakthrough Seizures - Objective % IBW: 69 (OTP=554#) Body Weight Used for Calculations: IBW (75.5kg) Energy Needs - Lower Range (kCal/kg): 25 Energy Needs - Upper Range (kCal/kg): 30 Lower Limit kCal/kg (kCals): 1,888 Upper Limit kCal/kg (kCals): 2,265 Lower Limit Protein Factor (Grams per Kg): 1.2 Upper Limit Protein Factor (Grams per Kg): 1.5 Lower Protein Needs (Protein): 91 Upper Protein Needs (Protein): 113 Dietitian Reviewed in Medical Record: Curent medications, Intake & Output, Labs , Tube feeding Diet Order: TF Only Feeding - Current Tube Feeding Tube Feeding Product: Jevity 1.5 Tube Feeding Method: Pump Tube Feeding Rate: 50 Assessment Assessment: Pt continues to be at nutritional risk receiving TFing to meet nutritional needs. Recommend continue Jevity 1.5 with goal rate of 60mls/hr as ordered. CBW = 50.4 Recommendations: Increase Jevity 1.5 to 60mls/hr goal Dietitian to Monitor: Lab values, Electrolytes, Intake & Output, Weight change, Medical course
--- NOTE | 2018-06-20 15:34 | P.PNIM ---
Subjective Interval history: KEZIA RN NGT IS FURTHER PULLED OUT WILL GET CHEST XRAY FOR PLACEMENT MAY NEED TO BE REINSERTED PRIOR TO USING AGAIN 06-17 NGT IS WORKING FAILED SWALLOW EVAL AGAIN NO IMPROVEMENT WILL NEED PEG OR HOSPICE FAMILY NEEDS TO MAKE DECISIONS 06-18 TRANSFERRED TO ICU FOR CONTINUOUS EEG IS A DNR STILL HAVING SEIZURES MEDICATIONS HAVE BEEN ADJUSTED BY NEUROLOGY VERY GUARDED PROGNOSIS PALLIATIVE CARE FOLLOWING FAMILY NEEDS TO CONSIDER HOSPICE AND COMFORT MEASURES ONLY AM LABS 06-19 seen and examined has WARMING BLANKET IN PLACE DW FAMILY AND PALLIATIVE CARE WOULD NOT WANT A PEG CHANCE OF HIM PASSING A SWALLOW EVAL IS NIL WANTS TO WATCH ANOTHER DAY LOOKS SEPTIC AND SICK STILL HAVING SEIZURE MEDS ADJUSTED MEDS ADJUSTED BY DR HERNANDEZ 06-20 FAMILY NOW WANTS HOSPICE BUT DOES NOT WANT NARCOTICS AT THIS TIME WANTS ME TO STOP TUBE FEEDS AND MAKE HIM COMFORTABLE WITHOUT NARCOTICS AND SEDATIVES DW RN AND PT AND FAMILY WILL RECALL HOSPICE NO MORE LAB DRAWS Physical Exam Vital signs: Vital Signs 06/19/18 16:00 06/19/18 20:00 06/19/18 20:07 Temperature 98.3 F 97.7 F Pulse Rate 88 92 H Respiratory Rate 12 22 Blood Pressure 91/54 L 97/50 L Pulse Oximetry 99 99 100 06/20/18 00:00 06/20/18 04:00 06/20/18 07:37 Temperature 98.5 F 98.1 F Pulse Rate 97 H 101 H Respiratory Rate 12 25 H Blood Pressure 101/59 L 102/58 L Pulse Oximetry 96 96 99 06/20/18 08:00 06/20/18 10:18 06/20/18 12:00 Temperature 98.4 F 98.2 F Pulse Rate 93 H 93 H Respiratory Rate 26 H 26 H Blood Pressure 120/72 116/67 Pulse Oximetry 100 100 100 Intake & Output 06/19/18 06/20/18 06/20/18 18:59 06:59 18:59 Intake Total 1160 / 1160 795 / 795 1139.5 / 1139.5 Output Total 450 / 450 Balance 1160 / 1160 345 / 345 1139.5 / 1139.5 Intake: IV 660 / 660 440 / 440 1139.5 / 1139.5 D5W/1/2 NS Inj 1,000 ML @ 60 750 / 750 mls/hr IV.CONT .[id number] ALPHONSE Rx# :[id number] Cerebyx Inj 100 MGPE In NS Inj 52 / 52 50 ML @ 208 mls/hr IV.SIG Q8H ALPHONSE Rx#:[id number] Vimpat Inj 200 MG In NS Inj 100 120 / 120 120 / 120 120 / 120 ML @ 120 mls/hr IV.SIG Q12H ALPHONSE Rx#:[id number] Depacon Inj 750 MG In NS Inj 210 / 210 210 / 210 107.5 / 107.5 100 ML @ 105 mls/hr IV.SIG Q8H ALPHONSE Rx#:[id number] Keppra Inj 1,000 MG In NS Inj 110 / 110 110 / 110 110 / 110 100 ML @ 440 mls/hr IV.SIG BID ALPHONSE Rx#:[id number] Tube Feeding 355 / 355 Tube Irrigant 500 / 500 Output: Urine Amount (Catheter) 450 / 450 Condom 450 / 450 Other: # Voids 2 Narrative: GENERAL: This is a thin male, in no apparent distress laying in bed with simple mask. NG-tube in place CARDIOVASCULAR: Regular rate and rhythm RESPIRATORY: Bilateral rhonchi GASTROINTESTINAL: Abdomen soft, non-tender, nondistended. HYPOACTIVE active bowel sounds MUSCULOSKELETAL: Extremities without clubbing, cyanosis, trace edema NEURO: Sleepy, DOES NOT open eyes , did not follow commands. Not able to assess insight and judgment not able to assess mood or behavior Nonverbal at this time NE HUGGER-WARMING BLANKET IN PLACE - Urinary Catheter Management Indwelling Urethral Catheter Cath placed during this visit: yes, but has since been removed by the nurse Reason for continuing: Not indwelling catheter Insertion date: 05/25/18 Insertion time: 15:00 Removal date: 05/26/18 Removal time: 12:00 Straight Cath placed during this visit: yes Reason for continuing: Not indwelling catheter Insertion date: 06/05/18 Insertion time: 00:20 Condom Cath placed during this visit: no Reason for continuing: Not indwelling catheter Results - Labs CBC & Chem 7: 06/20/18 04:56 06/20/18 04:56 Laboratory Results - last 24 hr 06/19/18 06/20/18 06/20/18 17:19 00:23 04:56 WBC 8.2 RBC 2.64 L Hgb 8.0 L Hct 23.5 L MCV 89.1 MCH 30.5 MCHC 34.2 RDW 17.7 H Plt Count 587 H MPV 7.2 Neut % (Auto) 60.8 Lymph % (Auto) 25.8 [place] % (Auto) 11.3 H Eos % (Auto) 0.8 Baso % (Auto) 1.3 Neut # (Auto) 5.0 Lymph # (Auto) 2.1 [place] # (Auto) 0.9 Eos # (Auto) 0.1 Baso # (Auto) 0.1 WBC Differential . Differential Comment Auto diff final Sodium Potassium Chloride Carbon Dioxide Anion Gap BUN Creatinine Estimated GFR POC Glucose 82 100 Random Glucose Calcium Phosphorus Magnesium Total Bilirubin AST ALT Alkaline Phosphatase Total Protein Albumin Valproic Acid Phenobarbital 06/20/18 06/20/18 04:56 11:32 WBC RBC Hgb Hct MCV MCH MCHC RDW Plt Count MPV Neut % (Auto) Lymph % (Auto) [place] % (Auto) Eos % (Auto) Baso % (Auto) Neut # (Auto) Lymph # (Auto) [place] # (Auto) Eos # (Auto) Baso # (Auto) WBC Differential Differential Comment Sodium 143 Potassium 3.8 Chloride 109 H Carbon Dioxide 25.6 Anion Gap 8 BUN 7 Creatinine 0.43 L Estimated GFR Greater than 89 POC Glucose 106 Random Glucose 78 Calcium 7.8 L Phosphorus 3.4 Magnesium 1.7 Total Bilirubin 0.3 AST 44 H ALT 16 Alkaline Phosphatase 216 H Total Protein 5.6 L Albumin 1.4 L Valproic Acid 38 L Phenobarbital 10.0 L - Imaging Chest X-Ray 05/25/18 15:22 CONCLUSION: No acute cardiopulmonary disease. Head CT 05/25/18 15:22 CONCLUSION: Chronic small vessel ischemic and atrophic changes. Head MRI 05/27/18 00:00 CONCLUSION: 1. Atrophy, white matter disease and remote left temporal infarct with encephalomalacia. Chest X-Ray 06/04/18 09:56 CONCLUSION: Patchy infiltrates are noted within the left mid and lower lung field and streakiness is noted within the right lung base consistent with atelectasis and/ or pneumonia. Clinical correlation is recommended. Chest X-Ray 06/07/18 07:12 CONCLUSION: Bilateral perihilar densities and left basilar airspace disease, not significantly changed. Abdomen X-Ray 06/08/18 00:00 CONCLUSION: Nasogastric tube tip in the distal stomach. Chest X-Ray 06/10/18 00:00 CONCLUSION: Nasogastric tube with tip in distal esophagus. This should be advanced at least 7 cm. Chest X-Ray 06/10/18 00:00 CONCLUSION: Nasogastric tube with tip in stomach, but could still be advanced. Stable bibasilar densities and small pleural effusions. Chest X-Ray 06/10/18 00:00 CONCLUSION: 1. Adequate placement of nasogastric tube. 2. Left basilar density and small pleural effusion. Liver Ultrasound 06/12/18 00:00 CONCLUSION: 1. Mild hepatic heterogeneity with no focal lesion or intrahepatic biliary ductal dilatation. Findings are nonspecific but could represent early cirrhosis. 2. Gallbladder is decompressed but may contain a small amount of intraluminal sludge. 3. Otherwise negative. Chest X-Ray 06/12/18 01:45 CONCLUSION: Bibasilar areas of suspected atelectasis, consolidation or possible effusions. Chest X-Ray 06/16/18 00:00 CONCLUSION: Moderate to large bibasilar opacities that have increased from the prior examination. These likely represent pleural effusions with associated volume loss and/or airspace consolidation. The overall pattern can be seen with pulmonary edema. Head MRI 06/18/18 00:00 CONCLUSION: Stable brain. No acute findings. - Procedures EEGS Assessment and Plan - Plan Alcohol dependence Alcohol withdrawal Seizure disorder with active seizures- improving. Medication noncompliance Acute combined toxic and metabolic encephalopathy-persists. Frequent neurochecks with continued confusion which persists. Patient is less agitated today and will attempt swallow evaluation.. Continue with Keppra per Neuro EEG 05/26: negative for ictal activity. generalized slowing. Repeat EEG ordered on 05/29 in view of tremors noted in right upper extremity. Appreciate neurology consultation and recommendations. On thiamine and multivitamins Head CT negative for acute disease 05/25. MRI brain: Remote left temporal infarct, atrophy 05/27 Repeat ammonia level not elevated. Neurology recommended starting trial of Adderall Patient's mental status waxes and wanes however has not had much improvement. SEEMS TO BE IN STATUS SEIZURES AT THIS TIME ON CONTINUOUS EEG MOVED TO ICU DUE TO SEIZURES SEIZURE MEDS BEING ADJUSTED BY NEUROLOGY SEIZURE MEDS STILL BEING ADJUSTED BY NEUROLOGY Acute hypoxic and hypercarbic respiratory failure Head of bed elevated Continue with oxygen support and keep sats >92% Bronchodilators, HOSPICE IN THE TALKS WITH PALLIATIVE CARE INPUT Severe dysphasia and high risk for aspirationcontinue n.p.o. and speech therapy ; patient reaspirated 06/12 and pulled NG tube out, patient failed a swallow evaluation. Family does not want PEG tube. Will attempt to reinsert NG tube today IV fluids with D5 half-normal saline; may need to consider PPN although this is not a good long-term solution if unable to insert NG tube.. NGT SEEMS TO BE FURTHER OUT THAN IT SHOULD BE WILL CHECK CHEST XRAY- GETTING TUBE FEEDS TOLERATING BUT NO IMPROVEMENT IN HIS SWALLOWING STILL FAILING SWALLOW EVALUATIONS WITH SPEECH urinary retention - no indication for tubbs. straight cath q6h. Monitor renal function. I/O's, electrolytes replacement per protocol Hypernatremia Change Free water increased to 250 every 6 hour due to hypernatremia, this has improved when patient was able to have NG tube. Alcoholic cirrhosis Acute protein calorie malnutritionsevere Severe hypokalemia- resolving.Replete today Acute intravascular volume depletion- resolving. Hyponatremia- resolved and now with hypernatremia Dehydration- resolving. ICU electrolyte protocol NPO by speech, continue tube feeds - Jevity 1.5 with goal rate 60ml/hr once NG tube can be replaced Previous failed swallow evaluation with high aspiration risk yesterday, patient consistently has failed swallow evaluation. NEEDS HOSPICE FAMILY DOES NOT WANT PEG Healthcare acquired pneumonia with aspiration pneumonia UTI noted. Urine cx: Kleb pneumonia on 05/29, Continue Aztreonam and Vanco per ID, day number #8 06/04, Urine, Blood culture, sputum cx: NGTD ID is following. Leukocytosis trending down Anemia, chronic likely due to history of cirrhosis and chronic disease monitor CBC, s/p transfuse 2u PRBC 06/04. Hyperglycemia of critical illness and now hypoglycemia due to n.p.o. status will start D5W -- SSI Prophylaxis: GI Prophylaxis Pepcid DVT Prophylaxis -- SCDs Lovenox held for anemia requiring blood transfusion APPEARS TO HAVE SIRS WITH LOW BLOOD PRESSURE AND LOW TEMPS AND TACHYCARDIA Lines: Peripheral IVs Palliative care is following This is a complex case with patient having recurrent aspiration with persistent metabolic and alcoholic encephalopathy. Patient is a DNR status Discussed with son at bedside who wants continue medical treatment up to DNR status, if patient does continue to decompensate will transition to hospice. Discharge Planning: May need long-term placement if clinically improves. CANNOT PLACE WITH NGT IN PLACE 06-20 REMAINS HYPOTENSIVE FAMILY WANTS HOSPICE WANTS TO STOP TUBE FEEDS DOES NOT WANT NARCOTICS OR SEDATIVES AT THIS TIME IS A FULL DNR WILL NOT AGGRESSIVELY TREAT BLOOD PRESSURE CONSULT HOSPICE Code Status: DNR Discussed Condition With: RN AND PT AND FAMILY Discharge Planning: HOSPICE CONSULT NO NARCOTICS OR SEDATIVES STOP TUBE FEEDS
[2018-06-20] MEDS ORDERED: HYDROmorphone PF Inj 1 MG/ML Ampul IV.PUSH PRN (15:53)
[2018-06-20] MEDS ORDERED: Acetaminophen 650 MG Supp RECTAL PRN (15:53)
[2018-06-20] MEDS ORDERED: Bisacodyl 10 MG Supp RECTAL PRN (15:53)
[2018-06-20] MEDS: Acetaminophen Inj 650 MG/65 ML VIAL IV.SIG PRN (20:38)
[2018-06-21] MEDS: Oral Hygiene Kit OROPHARYNG SCH ×4 (01:00→16:43)
[2018-06-21] MEDS: Fosphenytoin Inj 100 MGPE in Sodium Chlor 0.9% Inj 50 ML IV.SIG SCH ×2 (01:03→08:29)
[2018-06-21] MEDS: Valproate Inj 750 MG in Sodium Chlor 0.9% Inj 100 ML IV.SIG SCH ×3 (01:07→18:32)
[2018-06-21] MEDS ORDERED: HYDROmorphone PF Inj 2 MG/ML Vial IV.PUSH PRN (01:30)
[2018-06-21] MEDS: Hyoscyamine Inj 0.5 MG/ML Ampul IV.PUSH PRN ×3 (04:10→18:33)
[2018-06-21] MEDS: Acetaminophen Inj 650 MG/65 ML VIAL IV.SIG PRN ×2 (04:12→11:38)
[2018-06-21] MEDS: PHENobarbital Inj 130 MG/ML Vial IV.PUSH SCH ×2 (08:46→21:39)
[2018-06-21] MEDS: LEVETIRACETAM IV.SIG SCH ×2 (08:48→21:37)
[2018-06-21] MEDS: SODIUM CHLOR 0.9% IV.SIG SCH ×2 (08:48→21:37)
[2018-06-21] MEDS: Lacosamide Inj 200 MG in Sodium Chlor 0.9% Inj 100 ML IV.SIG SCH ×2 (11:23→21:40)
--- NOTE | 2018-06-21 12:24 | P.PNNEU ---
Subjective Subjective Comments: No active seizures; cross cover. Case discussed with hospitalist Dr. Welch wanted patient followed Active Medications: Active Medications Albuterol (Duoneb Neb (Prn)) 1 ampul NEB Q2HR NEB PRN PRN Reason: WHEEZING Bisacodyl (Dulcolax Supp) 10 mg RECTAL DAILY PRN PRN Reason: SEVERE CONSITIPATION Bisacodyl (Dulcolax Supp) 10 mg RECTAL DAILY PRN PRN Reason: CONSTIPATION Furosemide (Lasix Inj) 20 mg IV.PUSH Q6H PRN PRN Reason: Pulmonary Congestion Last Admin: 06/21/18 11:37 Dose: 20 mg Hydromorphone HCl (Dilaudid Pf Inj) 0.75 mg IV.PUSH Q2H PRN PRN Reason: SEE LABEL COMMENTS Hyoscyamine (Levsin Inj) 0.25 mg IV.PUSH Q6HR PRN PRN Reason: SECRETIONS Last Admin: 06/21/18 11:35 Dose: 0.25 mg Sodium Phosphate 30 mmol/ (Sodium Chloride) 260 mls @ 42 mls/hr IV.SIG UNSCH PRN PRN Reason: For Phosphorus < 2.5 mg/dL Last Infusion: 05/27/18 14:58 Dose: Infused Lacosamide 200 mg/ Sodium (Chloride) 120 mls @ 120 mls/hr IV.SIG Q12H ALPHONSE Last Admin: 06/21/18 11:23 Dose: 120 mls/hr Levetiracetam 1,000 mg/ Sodium (Chloride) 110 mls @ 440 mls/hr IV.SIG BID [facility]ONSE Last Infusion: 06/21/18 09:44 Dose: Infused Valproate Sodium 750 mg/ (Sodium Chloride) 107.5 mls @ 105 mls/hr IV.SIG Q8H ALPHONSE Last Infusion: 06/21/18 11:23 Dose: Infused Fosphenytoin Sodium 100 mgpe/ (Sodium Chloride) 52 mls @ 208 mls/hr IV.SIG Q8H ALPHONSE Last Infusion: 06/21/18 09:44 Dose: Infused Acetaminophen (Ofirmev Inj) 650 mg in 65 mls @ 400 mls/hr IV.SIG Q6H PRN PRN Reason: PAIN SCALE 0-3 OR TEMP> 100.5F Last Admin: 06/21/18 11:38 Dose: 400 mls/hr Lorazepam (Ativan Inj) 2 mg IV.PUSH Q15M PRN PRN Reason: SEIZURES Lorazepam (Ativan Inj) 1 mg IV.PUSH Q1H PRN PRN Reason: SEE LABEL COMMENTS Ondansetron HCl (Zofran Inj) 4 mg IV.PUSH Q6H PRN PRN Reason: NAUSEA OR VOMITING Phenobarbital Sodium (Luminal Inj) 120 mg IV.PUSH BID [facility] Last Admin: 06/21/18 08:46 Dose: 120 mg Sodium Chloride (Ns Flush) 2 ml IV.FLUSH BID [facility] Last Admin: 06/21/18 08:49 Dose: 2 ml Allergies/Adverse Reactions: Allergies Allergy/AdvReac Type Severity Reaction Status Date / Time No Known Allergies Allergy Unverified 06/19/18 23:00 Review of Systems unobtainable due to mental status Physical Exam Vital signs: Vital Signs 06/20/18 20:00 06/20/18 20:20 06/20/18 20:48 Respiratory Rate 18 18 Pulse Oximetry 100 06/21/18 04:28 06/21/18 07:21 Respiratory Rate 19 Pulse Oximetry 100 Intake & Output 06/20/18 06/21/18 06/21/18 18:59 06:59 18:59 Intake Total 2745.0 / 2745.0 519.5 / 519.5 269.5 / 269.5 Output Total 300 / 300 3600 / 3600 Balance 2445.0 / 2445.0 -3080.5 / -3080.5 269.5 / 269.5 Weight 51 kg Intake: IV 1799.0 / 1799.0 519.5 / 519.5 269.5 / 269.5 D5W/1/2 NS Inj 1,000 ML @ 60 1250 / 1250 mls/hr IV.CONT .[id number] ALPHONSE Rx# :[id number] Ofirmev Inj 650 mg In 65 ml @ 130 / 130 400 mls/hr IV.SIG Q6H PRN Rx#: [id number] Cerebyx Inj 100 MGPE In NS Inj 104 / 104 52 / 52 52 / 52 50 ML @ 208 mls/hr IV.SIG Q8H ALPHONSE Rx#:[id number] Vimpat Inj 200 MG In NS Inj 100 120 / 120 120 / 120 ML @ 120 mls/hr IV.SIG Q12H ALPHONSE Rx#:[id number] Depacon Inj 750 MG In NS Inj 215.0 / 215.0 107.5 / 107.5 107.5 / 107.5 100 ML @ 105 mls/hr IV.SIG Q8H ALPHONSE Rx#:[id number] Keppra Inj 1,000 MG In NS Inj 110 / 110 110 / 110 110 / 110 100 ML @ 440 mls/hr IV.SIG BID ALPHONSE Rx#:[id number] Oral 0 / 0 Tube Feeding 446 / 446 Tube Irrigant 500 / 500 Output: Stool 0 / 0 0 / 0 Urine/Stool Mix 0 / 0 Urine Amount (Catheter) 300 / 300 3600 / 3600 Condom 300 / 300 3600 / 3600 Other: Date of Last Bowel Movement 06/17/18 # Bowel Movements 0 Narrative: GENERAL: This is a thin male, nonrebreather on no acute distress otherwise looks comfortable CARDIOVASCULAR: Regular rate and rhythm RESPIRATORY: Bilateral rhonchi GASTROINTESTINAL: Abdomen soft, non-tender, nondistended. MUSCULOSKELETAL: Extremities without clubbing, cyanosis, trace edema NEURO: Mild stuporous state nonverbal minimally opens eyes to tactile stimuli nonrebreather in place OU 3.5 mm sluggishly reactive no facial asymmetry no involuntary movements withdraws lower limbs - Constitutional no acute distress - Urinary Catheter Management Indwelling Urethral Catheter Cath placed during this visit: yes, but has since been removed by the nurse Reason for continuing: Not indwelling catheter Insertion date: 05/25/18 Insertion time: 15:00 Removal date: 05/26/18 Removal time: 12:00 Straight Cath placed during this visit: yes Reason for continuing: Not indwelling catheter Insertion date: 06/05/18 Insertion time: 00:20 Condom Cath placed during this visit: no Reason for continuing: Not indwelling catheter Review/Management - Diagnosis (1) Chronic left arterial ischemic stroke, MCA (middle cerebral artery) Code(s): I69.30 - Unspecified sequelae of cerebral infarction Status: Acute Current Visit: Yes (2) Epilepsia partialis continua Code(s): G40.109 - Localization-related (focal) (partial) symptomatic epilepsy and epileptic syndromes with simple partial seizures, not intractable, without status epilepticus Status: Acute Current Visit: Yes (3) Encephalopathy Code(s): G93.40 - Encephalopathy, unspecified Status: Acute Current Visit: Yes (4) Generalized seizure Code(s): R56.9 - Unspecified convulsions Status: Acute Current Visit: Yes (5) Debility Code(s): R53.81 - Other malaise Status: Acute Current Visit: Yes - Review/Management Plan: imp mri and eeg neg on keppra hold all sedatives could be prolonged postictal will fu saturday see if awakens over next few days no apparent reason why he would not - 06/02/18 much better should do well keppra off vent when able 06/05/18 no sz he should bounce back neurowise to prior level of functioning keppra stable neuro 06/07/18 no sz on keppra 1000 bid eeg neg check abg for some inc ms change may need peg? i tai sone no etoh and needs to take his meds lives w daughter she should see that he does 06/08/18 have PT oob recheck eeg lower keppra to 750 bid should be making progress ? chest PT getting dehydrated na 150 06/09/18 a little better today try sinemet see if helps tremor and motor system etoher i tai son will fu eeg ok 06/10/18 no change i would think he should bounce back to prior functioning will need peg short term however maybe a month or two 06/11/18 try ritalin will tai nurse still lethargic will inc ritalin to 10mg i lowered the keppra to 250 bid 06/13/18 more alert on lower keppra i am going to dc keppra dn stay on ritalin and see how does he is at risk for sz but if it is med causing ms change need to know then on saturday i can start something else 06/16/18 looks much more alert try and get oob vimpat 50 bid for now 06/18/18 unfortunately sz yest on keppra 1000 bid pbarb 60bid andvimpat 200 bid looks ok now recheck eeg prob to floor tomorrow if no more sz 06/19/18 on keppra pbarb vpa added yest and vimpat recheck eeg and adjust meds i will accordingly 06/20/18 i have added dilantin 100 tid and inc pbarb to 120 tid and follow levels and check daily eeg overweekend will have neuro fu eeg persists with left sz activity We will increase IV Celebrex 150 mg every 8. 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 The declined this. The understand that he is critically ill likely approaching Palliative care following
[2018-06-21] MEDS: Fosphenytoin Inj 150 MGPE in Sodium Chlor 0.9% Inj 50 ML IV.SIG SCH ×2 (13:07→21:37)
[2018-06-21 15:59] LABS: Phenytoin (Dilantin) 5.1 mcg/mL (10.0-20.0)
[2018-06-22] MEDS: Oral Hygiene Kit OROPHARYNG SCH ×4 (00:55→16:52)
[2018-06-22] MEDS: Hyoscyamine Inj 0.5 MG/ML Ampul IV.PUSH PRN ×2 (00:55→11:17)
[2018-06-22] MEDS: Valproate Inj 750 MG in Sodium Chlor 0.9% Inj 100 ML IV.SIG SCH ×2 (00:56→10:26)
[2018-06-22] MEDS: Fosphenytoin Inj 150 MGPE in Sodium Chlor 0.9% Inj 50 ML IV.SIG SCH ×2 (04:46→13:45)
[2018-06-22] MEDS: PHENobarbital Inj 130 MG/ML Vial IV.PUSH SCH (09:23)
[2018-06-22] MEDS: LEVETIRACETAM IV.SIG SCH (09:23)
[2018-06-22] MEDS: SODIUM CHLOR 0.9% IV.SIG SCH (09:23)
[2018-06-22] MEDS: Lacosamide Inj 200 MG in Sodium Chlor 0.9% Inj 100 ML IV.SIG SCH (09:25)
[2018-06-22] MEDS: Acetaminophen Inj 650 MG/65 ML VIAL IV.SIG PRN (11:20)
--- NOTE | 2018-06-22 12:12 | P.PNNEU ---
Subjective Subjective Comments: No acute events. no obvious sz activity. d/w son at bedside Active Medications: Active Medications Albuterol (Duoneb Neb (Prn)) 1 ampul NEB Q2HR NEB PRN PRN Reason: WHEEZING Bisacodyl (Dulcolax Supp) 10 mg RECTAL DAILY PRN PRN Reason: SEVERE CONSITIPATION Bisacodyl (Dulcolax Supp) 10 mg RECTAL DAILY PRN PRN Reason: CONSTIPATION Furosemide (Lasix Inj) 20 mg IV.PUSH Q6H PRN PRN Reason: Pulmonary Congestion Last Admin: 06/22/18 11:20 Dose: 20 mg Hydromorphone HCl (Dilaudid Pf Inj) 0.75 mg IV.PUSH Q2H PRN PRN Reason: SEE LABEL COMMENTS Hyoscyamine (Levsin Inj) 0.25 mg IV.PUSH Q6HR PRN PRN Reason: SECRETIONS Last Admin: 06/22/18 11:17 Dose: 0.25 mg Sodium Phosphate 30 mmol/ (Sodium Chloride) 260 mls @ 42 mls/hr IV.SIG UNSCH PRN PRN Reason: For Phosphorus < 2.5 mg/dL Last Infusion: 05/27/18 14:58 Dose: Infused Lacosamide 200 mg/ Sodium (Chloride) 120 mls @ 120 mls/hr IV.SIG Q12H ALPHONSE Last Infusion: 06/22/18 10:25 Dose: Infused Levetiracetam 1,000 mg/ Sodium (Chloride) 110 mls @ 440 mls/hr IV.SIG BID ALPHONSE Last Infusion: 06/22/18 09:38 Dose: Infused Valproate Sodium 750 mg/ (Sodium Chloride) 107.5 mls @ 105 mls/hr IV.SIG Q8H ALPHONSE Last Infusion: 06/22/18 11:28 Dose: Infused Acetaminophen (Ofirmev Inj) 650 mg in 65 mls @ 400 mls/hr IV.SIG Q6H PRN PRN Reason: PAIN SCALE 0-3 OR TEMP> 100.5F Last Admin: 06/22/18 11:20 Dose: 400 mls/hr Fosphenytoin Sodium 150 mgpe/ (Sodium Chloride) 53 mls @ 208 mls/hr IV.SIG Q8H ALPHONSE Last Infusion: 06/22/18 07:00 Dose: Infused Lorazepam (Ativan Inj) 2 mg IV.PUSH Q15M PRN PRN Reason: SEIZURES Lorazepam (Ativan Inj) 1 mg IV.PUSH Q1H PRN PRN Reason: SEE LABEL COMMENTS Last Admin: 06/22/18 11:19 Dose: 1 mg Ondansetron HCl (Zofran Inj) 4 mg IV.PUSH Q6H PRN PRN Reason: NAUSEA OR VOMITING Phenobarbital Sodium (Luminal Inj) 120 mg IV.PUSH BID [facility] Last Admin: 06/22/18 09:23 Dose: 120 mg Sodium Chloride (Ns Flush) 2 ml IV.FLUSH BID [facility] Last Admin: 06/22/18 09:24 Dose: 2 ml Allergies/Adverse Reactions: Allergies Allergy/AdvReac Type Severity Reaction Status Date / Time No Known Allergies Allergy Unverified 06/19/18 23:00 Review of Systems unobtainable due to mental status Physical Exam Vital signs: Vital Signs 06/21/18 19:15 06/21/18 20:01 06/22/18 07:17 Temperature 97.9 F Pulse Rate 80 Respiratory Rate 19 Blood Pressure 91/54 L Pulse Oximetry 100 100 100 06/22/18 08:00 Temperature 98.9 F Pulse Rate 100 H Respiratory Rate 24 Blood Pressure 114/60 Pulse Oximetry 100 Intake & Output 06/21/18 06/22/18 06/22/18 18:59 06:59 18:59 Intake Total 507.5 / 507.5 498.0 / 498.0 390.5 / 390.5 Output Total 1999 / 1999 1600 / 1600 Balance -1492.5 / -1492.5 -1102.0 / -1102.0 390.5 / 390.5 Weight 50.5 kg Intake: IV 507.5 / 507.5 498.0 / 498.0 390.5 / 390.5 Ofirmev Inj 650 mg In 65 ml @ 65 / 65 400 mls/hr IV.SIG Q6H PRN Rx#: [id number] Cerebyx Inj 150 MGPE In NS Inj 105 / 105 53 / 53 53 / 53 50 ML @ 208 mls/hr IV.SIG Q8H ALPHONSE Rx#:[id number] Vimpat Inj 200 MG In NS Inj 100 120 / 120 120 / 120 120 / 120 ML @ 120 mls/hr IV.SIG Q12H ALPHONSE Rx#:[id number] Depacon Inj 750 MG In NS Inj 107.5 / 107.5 215.0 / 215.0 107.5 / 107.5 100 ML @ 105 mls/hr IV.SIG Q8H ALPHONSE Rx#:[id number] Keppra Inj 1,000 MG In NS Inj 110 / 110 110 / 110 110 / 110 100 ML @ 440 mls/hr IV.SIG BID [facility]SE Rx#:[id number] Oral 0 / 0 0 / 0 Output: Urine Amount (Catheter) 1999 1600 / 1600 Condom 1999 1600 / 1600 Other: Date of Last Bowel Movement 06/17/18 06/17/18 06/17/18 # Bowel Movements 0 Narrative: GENERAL: This is a thin male, nonrebreather on no acute distress otherwise looks comfortable CARDIOVASCULAR: Regular rate and rhythm RESPIRATORY: Bilateral rhonchi GASTROINTESTINAL: Abdomen soft, non-tender, nondistended. MUSCULOSKELETAL: Extremities without clubbing, cyanosis, trace edema NEURO: Mild stuporous state nonverbal minimally opens eyes to tactile stimuli nonrebreather in place OU 3.5 mm sluggishly reactive no facial asymmetry no involuntary movements withdraws lower limbs - Constitutional no acute distress - Routine HEENT Exam Head: Present: normocephalic - Urinary Catheter Management Indwelling Urethral Catheter Cath placed during this visit: yes, but has since been removed by the nurse Reason for continuing: Not indwelling catheter Insertion date: 05/25/18 Insertion time: 15:00 Removal date: 05/26/18 Removal time: 12:00 Straight Cath placed during this visit: yes Reason for continuing: Not indwelling catheter Insertion date: 06/05/18 Insertion time: 00:20 Condom Cath placed during this visit: no Reason for continuing: Not indwelling catheter Objective Laboratory Results - last 24 hr 06/21/18 14:40 Phenytoin 5.1 L Valproic Acid 68 Phenobarbital 16.0 Review/Management - Diagnosis (1) Chronic left arterial ischemic stroke, MCA (middle cerebral artery) Code(s): I69.30 - Unspecified sequelae of cerebral infarction Status: Acute Current Visit: Yes (2) Epilepsia partialis continua Code(s): G40.109 - Localization-related (focal) (partial) symptomatic epilepsy and epileptic syndromes with simple partial seizures, not intractable, without status epilepticus Status: Acute Current Visit: Yes (3) Encephalopathy Code(s): G93.40 - Encephalopathy, unspecified Status: Acute Current Visit: Yes (4) Generalized seizure Code(s): R56.9 - Unspecified convulsions Status: Acute Current Visit: Yes (5) Debility Code(s): R53.81 - Other malaise Status: Acute Current Visit: Yes - Review/Management Plan: imp mri and eeg neg on keppra hold all sedatives could be prolonged postictal will fu saturday see if awakens over next few days no apparent reason why he would not - 06/02/18 much better should do well keppra off vent when able 06/05/18 no sz he should bounce back neurowise to prior level of functioning keppra stable neuro 06/07/18 no sz on keppra 1000 bid eeg neg check abg for some inc ms change may need peg? i tai sone no etoh and needs to take his meds lives w daughter she should see that he does 06/08/18 have PT oob recheck eeg lower keppra to 750 bid should be making progress ? chest PT getting dehydrated na 150 06/09/18 a little better today try sinemet see if helps tremor and motor system etoher i dw son will fu eeg ok 06/10/18 no change i would think he should bounce back to prior functioning will need peg short term however maybe a month or two 06/11/18 try ritalin will tai nurse still lethargic will inc ritalin to 10mg i lowered the keppra to 250 bid 06/13/18 more alert on lower keppra i am going to dc keppra dn stay on ritalin and see how does he is at risk for sz but if it is med causing ms change need to know then on saturday i can start something else 06/16/18 looks much more alert try and get oob vimpat 50 bid for now 06/18/18 unfortunately sz yest on keppra 1000 bid pbarb 60bid andvimpat 200 bid looks ok now recheck eeg prob to floor tomorrow if no more sz 06/19/18 on keppra pbarb vpa added yest and vimpat recheck eeg and adjust meds i will accordingly 06/20/18 i have added dilantin 100 tid and inc pbarb to 120 tid and follow levels and check daily eeg overweekend will have neuro fu eeg persists with left sz activity We will increase IV Celebrex 150 mg every 8. 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 The declined this. The understand that he is critically ill likely approaching Palliative care following 06/22/18 sz med levels pending eeg pending pt comfortable. d/w son.
[2018-06-22] MEDS ORDERED: levETIRAcetam 1000mg/100mL Inj 100 ML IV.SIG SCH (21:00)
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
== END 2018-06-22 17:40 | disposition expired ==
LOC: NEPE 14:44 → NEDA 18:35 → HIMC 20:15 → N05 06-09 17:16 → N03 06-18 00:19
PROVIDERS: ADMIT Family Medicine; ATTEND Family Medicine